=== PATIENT | female | born 1960 | race Caucasian/White ===

== ENCOUNTER 2018-04-22 11:43 | Emergency (ER) | payer OTHER, MEDICAID, SELFPAY ==
[2018-04-22 11:47] VITALS: BP 195/93; PULSE 88; RESP 16; TEMP 36.6; O2SAT 98; BMI 47.5
--- NOTE | 2018-04-22 12:01 | ED.NEUROSD ---
HPI - Neuro Symptoms/Deficit General Chief Complaint: Neuro Symptoms/Deficit Stated Complaint: possible stroke, COPD Time Seen by Provider: 04/22/18 12:01 Source: patient Mode of arrival: ambulatory Limitations: no limitations History of Present Illness HPI Narrative: Patient is a 57-year-old female here for evaluation of a potential stroke. Patient is here with her daughter. She states approximately 2 hr prior to arrival here in the emergency department she was talking on the phone with her son when her son stated that she was slurring her words. Patient states that she noticed that she was slurring her words. She also states that there words that she wanted to stay but could not say them. She denies any other symptoms at the time. She states that she went and sat down. She started to eat some aches for breakfast and states the symptoms were still going on. She thinks they lasted sometime between 30 and 60 min. Her symptoms have since then completely resolved. She also states that during the time she had some vague tingling to her right hand. She states that lasted only minutes. That has also resolved. She thinks that she has had a similar symptom in the past. She does not know when this happened. She states that at that time she drank some coffee and everything improved. She did take a baby aspirin this morning not related to this event. Related Data Home Medications Medication Instructions Recorded Confirmed acetaminophen 325 mg PO #0 04/08/16 fluticasone [Flovent Diskus] 100 mcg INH BID #0 07/04/16 furosemide 20 mg PO QDAY #0 07/04/16 simvastatin 10 mg PO QDAY #0 07/04/16 Previous Rx's Medication Instructions Recorded albuterol sulfate [Proventil HFA] 1 puff INH Q4HP PRN #1 inh 04/13/16 amlodipine [Norvasc] 10 mg PO QDAY #30 04/13/16 carvedilol [Coreg] 25 mg PO BID #60 04/13/16 losartan 100 mg PO QDAY #30 04/13/16 doxycycline hyclate 100 mg PO BID 7 Days #0 cap 07/08/16 prednisone 60 mg PO QDAY 2 Days #0 07/08/16 salmeterol [Serevent Diskus] 2 puff INH BIDRT 30 Days #0 07/08/16 dexamethasone 2 mg PO Q8H #30 tab 04/22/18 levetiracetam [Keppra] 500 mg PO BID #60 tab 04/22/18 Allergies Allergy/AdvReac Type Severity Reaction Status Date / Time naproxen Allergy Mild MADE MY Verified 04/22/18 12:05 FACE NUMB meperidine Allergy Unknown Verified 04/22/18 12:05 Penicillins Allergy Unknown Verified 04/22/18 12:05 Sulfa (Sulfonamide Allergy Unknown Verified 04/22/18 12:05 Antibiotics) Review of Systems Review of Systems All systems reviewed & are unremarkable except as noted in HPI and below Constitutional Denies fatigue and Denies fever(s) Eyes Denies blurry vision, Denies change in vision and Denies diplopia ENT Ears, Nose, Mouth, and Throat: Denies vertigo, Denies dizziness, Denies sinus pressure, Denies sore throat and Denies throat swelling Cardiovascular Denies chest pain, Denies palpitations and Denies dyspnea Respiratory Denies cough and Denies dyspnea Gastrointestinal Gastrointestinal: Denies abdominal pain, Denies nausea and Denies vomiting Genitourinary Denies dysuria and Denies flank pain Musculoskeletal Denies myalgias and Denies arthralgias Integumentary/Breasts Denies lesions and Denies rash Neurologic Denies confusion, Denies vertigo and Denies dizziness Comments: Slurring of words, word-finding, tingling to right hand Psychiatric Denies confusion and Denies depression Endocrine Denies fatigue and Denies palpitations Hematologic/Lymphatic Comments: Takes aspirin Allergic/Immunologic Denies urticaria and Denies throat swelling PFSH Medical History COPD (chronic obstructive pulmonary disease) (Acute) Hypertension (Acute) Social History Smoking Status: Never smoker Exam Initial Vital Signs Initial Vital Signs: Vital Signs Temperature 98 F 04/22/18 11:47 Pulse Rate 88 04/22/18 11:47 Respiratory Rate 16 04/22/18 11:47 Blood Pressure 195/93 H 04/22/18 11:47 Pulse Oximetry 98 04/22/18 11:47 Const General: cooperative, comfortable, well developed, well groomed and No acute distress Nutritional Appearance: overweight Orientation: alert, awake and oriented x3 HENMT Head: normal to inspection and normocephalic Eyes General: appearance normal, both eyes and all related structures Pupils: PERRL EOM: EOM intact bilaterally Chest Chest: normal inspection of the chest Resp Effort & Inspection: normal respiratory effort Auscultation: clear to auscultation bilaterally Cardio Rate: regular rate Rhythm: regular rhythm Pulses: radial pulses present GI Inspection: non-distended Palpation: soft, No firm and No tender Back/Spine/Pelvis Back: No CVA tenderness Skin Lesions: no lesions Rashes: no rashes Neuro General: alert, awake and oriented x3 Cranial Nerves: CN's II-XI intact bilaterally Cognition: normal cognition Speech: speech normal Gait: normal gait Motor: muscle tone normal throughout Sensory Exam: no sensory deficits noted Coordination: [id number] test normal Extrem General: normal to inspection, full ROM, capillary refill normal and No edema Psych Appearance: grossly normal and well kempt Scores ABCD2 Age >= 60 years: yes Initial BP. Either SBP >= 140 or DBP >= 90.: yes Clinical features of the TIA: speech disturbance without weakness Duration of symptoms: 10-59 minutes History of diabetes: no ABCD2 Score: 4 GCS Greene coma scale eye opening: Spontaneous Deena coma scale verbal response: Orientated Deena coma scale motor response: Obey commands Greene coma scale total score: 15 NIH Stroke Scale Level of Conciousness: Alert, keenly responsive Ask month/age: Answers both questions correctly. Open/close eyes, close hand: Performs both tasks correctly Best gaze horizontal: Normal Visual ramirez: No visual loss Facial palsy: Normal symetrical movement Left arm drift: No drift for full 10 sec Right arm drift: No drift for full 10 sec Left leg drift: No drift for full 10 sec Right leg drift: No drift for full 10 sec Limb ataxia: Absent Sensory on face/arms/legs: Normal, no sensory loss Best language: No aphasia, normal Dysarthria: Normal Extinction or inattention: No abnormality Total NIH Stroke scale score: 0 Course Orders Ordered: ED Orders 04/22/18 12:18 CT head/brain wo con Stat EKG-12 Lead Stat 04/22/18 12:45 Basic Metabolic Panel Stat Complete Blood Count AUTO DIFF Stat Partial Thromboplastin Time Stat Prothrombin Time INR Stat 04/22/18 15:43 CT chest abd pel w con Stat Discontinued Medications Aspirin (Aspirin Ec) 162 mg PO NOW ONE Stop: 04/22/18 12:18 Last Admin: 04/22/18 13:20 Dose: Aspirin (Aspirin Chew) 162 mg PO NOW ONE Stop: 04/22/18 12:55 Last Admin: 04/22/18 12:55 Dose: 162 mg Dexamethasone (Decadron) 2 mg PO NOW ONE Stop: 04/22/18 15:42 Last Admin: 04/22/18 16:05 Dose: 2 mg Sodium Chloride (Normal Saline 0.9%) 1,000 mls @ 1,000 mls/hr IV BOLUS ONE Stop: 04/22/18 16:41 Last Admin: 04/22/18 16:05 Dose: 1,000 mls/hr Levetiracetam (Keppra) 500 mg PO NOW ONE Stop: 04/22/18 15:42 Last Admin: 04/22/18 16:05 Dose: 500 mg Vital Signs - 8 hr 04/22/18 11:47 04/22/18 13:00 04/22/18 14:30 Temperature 98 F Pulse Rate 88 80 78 Respiratory Rate 16 16 27 H Blood Pressure 195/93 H Blood Pressure [Left Arm] 167/73 H 166/65 H Pulse Oximetry 98 95 98 04/22/18 15:30 04/22/18 16:43 Temperature Pulse Rate 104 H 79 Respiratory Rate 18 Blood Pressure Blood Pressure [Left Arm] 120/82 187/75 H Pulse Oximetry 97 97 MDM - Neuro Symptoms/Deficit Lab Data Attestation: I reviewed the patient's lab results. Result diagrams: 04/22/18 12:45 04/22/18 12:45 Lab Results 04/22/18 04/22/18 04/22/18 Range/Units 12:45 12:45 12:45 WBC 7.5 (4.5-11.0) X10^3/uL RBC 4.79 (4.0-5.2) X10^6/uL Hgb 13.2 (12.0-16.0) g/dL Hct 39.4 (36-46) % MCV 82.3 (80-100) fL MCH 27.6 (26-34) PG MCHC 33.6 (30-36) % RDW 14.3 (11.6-14.8) % Plt Count 285 (150-400) X10^3/uL Neut % (Auto) 70.7 (50-75) % Lymph % (Auto) 21.4 L (25-40) % [place] % (Auto) 4.4 (3-14) % Eos % (Auto) 2.4 (2-4) % Baso % (Auto) 1.1 (0-2) % Neut # (Auto) 5300 (6836-6496) /uL PT 11.7 (10.1-12.7) SECONDS INR 1.0 (0.9-1.3) APTT 28 (26.4-36.2) SECONDS Sodium 139 (137-145) mmol/L Potassium 4.2 (3.4-5.1) mmol/L Chloride 93 L (98-107) mmol/L Carbon Dioxide 37 H (22-32) mmol/L BUN 13 (7-17) mg/dL Creatinine 0.60 (0.52-1.04) mg/dL Estimated GFR > 60.0 (>60) mL/min BUN/Creatinine Ratio 21.7 (6-22) Glucose 235 H (70-100) mg/dL Calcium 9.6 (8.4-10.2) mg/dL Imaging Data CT scan - head: Radiologist's impression: PROCEDURE: CT HEAD/BRAIN WO CON INDICATIONS: Dysarthria, possible TIA TECHNIQUE: Noncontrast 4.5 mm thick angled axial sections acquired from the foramen magnum to the vertex, with coronal and sagittal reformats. For radiation dose reduction, the following was used: automated exposure control, adjustment of mA and/or kV according to patient size. COMPARISON: [facility], CT, PE STUDY (CTA CHEST), 07/04/2016, 17:54. [facility], CT, PE STUDY (CTA CHEST), 03/25/2016, 2:43. [facility], CT, ABDOMEN/PELVIS WITH CONTRAST, 07/01/2011, 22:35. [facility], CT, ABDOMEN/PELVIS WITH CONTRAST, 08/17/2010, 18:58. FINDINGS: Image quality: Excellent. CSF spaces: Basal cisterns are patent. Ventricles are normal in size and shape. There is a 2.3 cm ML by 3.5 cm AP by 4.0 cm CC hyperattenuating oval circumscribed mass overlying the lateral left frontal lobe with adjacent mass effect on the left frontal lobe with effacement of the adjacent sulci and edema. Brain: No midline shift. East-white matter interface is normal. Mild scattered subcortical periventricular white matter hypoattenuation is nonspecific but can be seen with chronic microvascular ischemic changes. There is a chronic-appearing lacunar infarct in the right basal ganglia. Skull and face: Calvarium and visualized facial bones are intact. Sinuses: Visualized sinuses and mastoids are clear. IMPRESSION: 4.0 cm extra-axial mass overlying the lateral left frontal lobe concerning for a true mass lesion such as a meningioma; an epidural hematoma is also possible but thought less likely given morphology. Consider contrast-enhanced brain MRI for further evaluation. Findings discussed with referring provider Dr. Neftali Monzon by telephone by Dr. Kiser at 12:45 PM on 04/22/18. Dictated by: Samir Kiser M.D. on 04/22/2018 at 12:37 Approved by: Samir Kiser M.D. on 04/22/2018 at 12:47 CT chest abdomen pelvis: Radiologist's impression: PROCEDURE: CT CHEST ABD PEL W CON INDICATIONS: eval for primary cancer TECHNIQUE: After the administration of intravenous contrast, 5 mm thick sections acquired from the lung apices to the symphysis. 2.5 mm thick coronal and sagittal reformats were acquired. Additional 7 mm thick coronal maximum intensity projection (MIP) reformats acquired through the lungs. Optional 10-minute delayed imaging may be performed from the kidneys to the bladder. For radiation dose reduction, the following was used: automated exposure control, adjustment of mA and/or kV according to patient size. COMPARISON: [facility], CT, CT HEAD/BRAIN WO CON, 04/22/2018, 12:13. [facility], CT, PE STUDY (CTA CHEST), 07/04/2016, 17:54. [facility], CT, PE STUDY (CTA CHEST), 03/25/2016, 2:43. [facility], CT, ABDOMEN/PELVIS WITH CONTRAST, 07/01/2011, 22:35. FINDINGS: Image quality: Excellent. CHEST: Lungs: Scattered bilateral linear airspace opacities consistent with atelectasis. No pneumothorax or hemothorax. Central and peripheral airways appear patent and normal in caliber. Mediastinum: Heart size is normal. Trace pericardial effusion. Thoracic aorta and pulmonary arteries demonstrate normal size and enhancement. No mediastinal or hilar adenopathy. There is mild calcified plaque of the aorta and branch vessels. Chest wall: No rib fractures. No subcutaneous emphysema. No axillary or supraclavicular adenopathy. Thyroid gland demonstrates small calcifications in the inferior left thyroid lobe. ABDOMEN: Solid organs: There is diffuse hypoattenuation consistent with hepatic steatosis.. Gallbladder is surgically absent. Biliary system is non-dilated. Pancreas enhances normally, without transection. Spleen is normal in size and enhancement, without lacerations. No adrenal nodules. Both kidneys enhance normally, without hydronephrosis or lacerations. Peritoneum and bowel: No free fluid or air. There is diffuse colonic diverticulosis without evidence of acute diverticulitis. Appendix is not clearly identified on this exam, but no right lower quadrant inflammatory findings are identified to suggest acute appendicitis. Nodes and vessels: No retroperitoneal or mesenteric adenopathy. Aorta and inferior vena cava are normal in size and enhancement. Mild calcified plaque of the abdominal aorta and branch vessels noted. Miscellaneous: There is a small fat-containing umbilical hernia. PELVIS: Genitourinary: Bladder wall thickness is normal. Miscellaneous: No inguinal hernias or adenopathy. Multiple uterine masses are identified, one measuring 4.0 cm and demonstrating peripheral calcifications, while the largest measures 5.2 cm with no calcification. Bones: Multilevel degenerative changes of the spine noted. IMPRESSION: 1. Multiple uterine masses measuring up to 5.2 cm in greatest diameter, most consistent with uterine fibroids. 2. Colonic diverticulosis without evidence of acute diverticulitis. Dictated by: Samir Kiser M.D. on 04/22/2018 at 16:56 ECG Data Attestation: I personally reviewed and interpreted this ECG as follows: Prior ECG tracings: not available for review Interpretation: Sinus rhythm Ventricular rate 80 for Normal axis Normal QRS Normal QTC No ST T wave changes MDM Narrative Medical decision making narrative: Patient has been completely symptom free since arrival here in the emergency department. The non con head CT shows no signs of stroke. Does have what appears to be a left-sided hemangioma. Patient was unable to tolerate the MRI here in the emergency department. I discussed the case with Dr. Estrada neurosurgery at [facility]. He was unable to view the CT resolved secondary to a systems issue and unable to push the images to him. I did read him the report. We did discuss the reports of the edema noted. He recommended starting the patient on 500 mg of Keppra 2 times a day and 2 mg of dexamethasone 3 times a day. Patient was given her 1st dose here in the emergency department. He also recommended that the patient call his office tomorrow. He stated that he most likely would be able to see her tomorrow in the office. He also recommended the CT scan of the chest abdomen pelvis to look for any potential malignancy. This came back unremarkable. The patient was given a CT scan of her head and also her chest abdomen pelvis. There is some concern that the hemangioma was pressing on the left temporal lobe which could very well be causing her symptoms that brought her to the emergency department. Patient was given follow-up information for Neurosurgery. She was instructed to contact her insurance company also her primary care doctor. She was given return precautions. She expressed understanding and agreement with plan. Discharge Plan Departure Patient Disposition: Home Clinical Impression: Meningioma Instructions: Meningioma Activity Restrictions/Additional Instructions: I recommend that tomorrow morning you contact your insurance company and also your primary care doctor. Please call the neurosurgery office at [facility] at [phone]. You were given her 1st dose of medications here in the emergency department. Start taking the medications as directed tomorrow 04/23/18. Return to the emergency department for any new or worsening symptoms. I also recommend he start taking a full dose aspirin daily. Prescriptions: New levetiracetam [Keppra] 500 mg tablet 500 mg PO BID Qty: 60 RF: 0 dexamethasone 2 mg tablet 2 mg PO Q8H Qty: 30 RF: 0 No Action acetaminophen 325 MG tablet 325 mg PO Qty: 0 RF: 0 amlodipine [Norvasc] 5 MG tablet 10 mg PO QDAY Qty: 30 RF: 0 carvedilol [Coreg] 25 MG tablet 25 mg PO BID Qty: 60 RF: 0 losartan 50 MG tablet 100 mg PO QDAY Qty: 30 RF: 0 albuterol sulfate [Proventil HFA] 90 MCG/PUFF HFA aerosol inhaler 1 puff INH Q4HP PRNQty: 1 RF: 0 simvastatin 10 MG tablet 10 mg PO QDAY Qty: 0 RF: 0 furosemide 20 MG tablet 20 mg PO QDAY Qty: 0 RF: 0 fluticasone [Flovent Diskus] 100 MCG blister with device 100 mcg INH BID Qty: 0 RF: 0 doxycycline hyclate 100 MG capsule 100 mg PO BID 7 Days Qty: 0 RF: 0 prednisone 20 MG tablet 60 mg PO QDAY 2 Days Qty: 0 RF: 0 salmeterol [Serevent Diskus] 50 MCG blister with device 2 puff INH BIDRT 30 Days Qty: 0 RF: 0
--- NOTE | 2018-04-22 12:18 | DI.CT.S_ITS ---
PROCEDURE: CT HEAD/BRAIN WO CON INDICATIONS: Dysarthria, possible TIA TECHNIQUE: Noncontrast 4.5 mm thick angled axial sections acquired from the foramen magnum to the vertex, with coronal and sagittal reformats. For radiation dose reduction, the following was used: automated exposure control, adjustment of mA and/or kV according to patient size. COMPARISON: [facility], CT, PE STUDY (CTA CHEST), 07/04/2016, 17:54. [facility], CT, PE STUDY (CTA CHEST), 03/25/2016, 2:43. [facility], CT, ABDOMEN/PELVIS WITH CONTRAST, 07/01/2011, 22:35. [facility], CT, ABDOMEN/PELVIS WITH CONTRAST, 08/17/2010, 18:58. FINDINGS: Image quality: Excellent. CSF spaces: Basal cisterns are patent. Ventricles are normal in size and shape. There is a 2.3 cm ML by 3.5 cm AP by 4.0 cm CC hyperattenuating oval circumscribed mass overlying the lateral left frontal lobe with adjacent mass effect on the left frontal lobe with effacement of the adjacent sulci and edema. Brain: No midline shift. East-white matter interface is normal. Mild scattered subcortical periventricular white matter hypoattenuation is nonspecific but can be seen with chronic microvascular ischemic changes. There is a chronic-appearing lacunar infarct in the right basal ganglia. Skull and face: Calvarium and visualized facial bones are intact. Sinuses: Visualized sinuses and mastoids are clear. IMPRESSION: 4.0 cm extra-axial mass overlying the lateral left frontal lobe concerning for a true mass lesion such as a meningioma; an epidural hematoma is also possible but thought less likely given morphology. Consider contrast-enhanced brain MRI for further evaluation. Findings discussed with referring provider Dr. Neftali Monzon by telephone by Dr. Kiser at 12:45 PM on 04/22/18. Dictated by: Samir Kiser M.D. on 04/22/2018 at 12:37 Approved by: Samir Kiser M.D. on 04/22/2018 at 12:47
[2018-04-22 12:54] LABS: Add Manual Diff / Slide Review NO; Basophils Percent Auto 1.1 % (0-2); Eosinophils Percent Auto 2.4 % (2-4); Hematocrit 39.4 % (36-46); Hemoglobin 13.2 g/dL (12.0-16.0); Lymphocytes Percent Auto 21.4 % (25-40); Mean Corpuscular HGB Conc 33.6 % (30-36); Mean Corpuscular Hemoglobin 27.6 PG (26-34); Mean Corpuscular Volume 82.3 fL (80-100); Monocytes Percent Auto 4.4 % (3-14); Neutrophils Absolute Auto 5300 /uL (1500-7000); Neutrophils Percent Auto 70.7 % (50-75); Platelet Count 285 X10^3/uL (150-400); Red Blood Cell Count 4.79 X10^6/uL (4.0-5.2); Red Cell Distribution Width 14.3 % (11.6-14.8); White Blood Cell Count 7.5 X10^3/uL (4.5-11.0)
[2018-04-22] MEDS: ASPIRIN 81 MG TAB 162 MG PO (12:55)
[2018-04-22 12:59] LABS: Prothrombin Time 11.7 SECONDS (10.1-12.7)
[2018-04-22 13:00] VITALS: BP 167/73; PULSE 80; RESP 16; O2SAT 95
[2018-04-22 13:02] LABS: PTT Partial Thromboplastin Tim 28 SECONDS (26.4-36.2)
[2018-04-22 13:03] LABS: BUN Creatinine Ratio 21.7 (6-22); Blood Urea Nitrogen 13 mg/dL (7-17); Calcium 9.6 mg/dL (8.4-10.2); Carbon Dioxide 37 mmol/L (22-32); Chloride 93 mmol/L (98-107); Estimated Glomerular Filt Rate > 60.0 mL/min (>60); Glucose 235 mg/dL (70-100); HEMOLYSIS 27 (0-50); Potassium 4.2 mmol/L (3.4-5.1); Sodium 139 mmol/L (137-145)
--- NOTE | 2018-04-22 13:28 | PC.NURSE ---
Pt reports on phone with son about 1030 when she started slurring words. She reported it increased to being unable to say any words coherently though she knew what she wanted to say. She reported that fingers in left hand started to go numb at home but has feeling in hand at this time. Reports speech cleared about 1200.
[2018-04-22 14:30] VITALS: BP 166/65; PULSE 78; RESP 27; O2SAT 98
--- NOTE | 2018-04-22 14:40 | PC.NURSE ---
PT to MRI. Was unable to tolerate procedure. procedure was not started.
[2018-04-22 15:30] VITALS: BP 120/82; PULSE 104; O2SAT 97
--- NOTE | 2018-04-22 15:43 | DI.CT.S_ITS ---
PROCEDURE: CT CHEST ABD PEL W CON INDICATIONS: eval for primary cancer TECHNIQUE: After the administration of intravenous contrast, 5 mm thick sections acquired from the lung apices to the symphysis. 2.5 mm thick coronal and sagittal reformats were acquired. Additional 7 mm thick coronal maximum intensity projection (MIP) reformats acquired through the lungs. Optional 10-minute delayed imaging may be performed from the kidneys to the bladder. For radiation dose reduction, the following was used: automated exposure control, adjustment of mA and/or kV according to patient size. COMPARISON: [facility], CT, CT HEAD/BRAIN WO CON, 04/22/2018, 12:13. [facility], CT, PE STUDY (CTA CHEST), 07/04/2016, 17:54. [facility], CT, PE STUDY (CTA CHEST), 03/25/2016, 2:43. [facility], CT, ABDOMEN/PELVIS WITH CONTRAST, 07/01/2011, 22:35. FINDINGS: Image quality: Excellent. CHEST: Lungs: Scattered bilateral linear airspace opacities consistent with atelectasis. No pneumothorax or hemothorax. Central and peripheral airways appear patent and normal in caliber. Mediastinum: Heart size is normal. Trace pericardial effusion. Thoracic aorta and pulmonary arteries demonstrate normal size and enhancement. No mediastinal or hilar adenopathy. There is mild calcified plaque of the aorta and branch vessels. Chest wall: No rib fractures. No subcutaneous emphysema. No axillary or supraclavicular adenopathy. Thyroid gland demonstrates small calcifications in the inferior left thyroid lobe. ABDOMEN: Solid organs: There is diffuse hypoattenuation consistent with hepatic steatosis.. Gallbladder is surgically absent. Biliary system is non-dilated. Pancreas enhances normally, without transection. Spleen is normal in size and enhancement, without lacerations. No adrenal nodules. Both kidneys enhance normally, without hydronephrosis or lacerations. Peritoneum and bowel: No free fluid or air. There is diffuse colonic diverticulosis without evidence of acute diverticulitis. Appendix is not clearly identified on this exam, but no right lower quadrant inflammatory findings are identified to suggest acute appendicitis. Nodes and vessels: No retroperitoneal or mesenteric adenopathy. Aorta and inferior vena cava are normal in size and enhancement. Mild calcified plaque of the abdominal aorta and branch vessels noted. Miscellaneous: There is a small fat-containing umbilical hernia. PELVIS: Genitourinary: Bladder wall thickness is normal. Miscellaneous: No inguinal hernias or adenopathy. Multiple uterine masses are identified, one measuring 4.0 cm and demonstrating peripheral calcifications, while the largest measures 5.2 cm with no calcification. Bones: Multilevel degenerative changes of the spine noted. IMPRESSION: 1. Multiple uterine masses measuring up to 5.2 cm in greatest diameter, most consistent with uterine fibroids. 2. Colonic diverticulosis without evidence of acute diverticulitis. Dictated by: Samir Kiser M.D. on 04/22/2018 at 16:56 Approved by: Samir Kiser M.D. on 04/22/2018 at 17:11
[2018-04-22] MEDS: levETIRAcetam 250 MG TABLET 500 MG PO (16:05)
[2018-04-22] MEDS: SODIUM CHLORIDE 0.9% 1,000 ML 1000 ML IV (16:05)
[2018-04-22] MEDS: DEXAMETHASONE 1 MG TABLET 2 MG PO (16:05)
[2018-04-22 16:43] VITALS: BP 187/75; PULSE 79; RESP 18; O2SAT 97
[2018-04-22 17:55] VITALS: BP 187/70; PULSE 78; RESP 19; O2SAT 99
--- NOTE | 2018-05-23 20:41 | PC.NURSE ---
Late Entry: Pt received 1000ml of Normal saline on 04/22/18. Completed at 1650.
== END 2018-04-22 17:59 | disposition home or self-care (01) ==
PROVIDERS: Emergency Provider Emergency Medicine; Family Provider Family Medicine; PCP Family Medicine
DX: D32.9 Benign neoplasm of meninges, unspecified (principal)
CPT/HCPCS: 36591; 70450; 71260; 74177; 80048; 85025; 85610; 85730; 93005; 96360; 99283; 99285; 99291; Q9967

== ENCOUNTER 2018-05-14 10:31 | Emergency (ER) | payer OTHER, MEDICAID, SELFPAY ==
[2018-05-14] VITALS (13 sets, daily range): BP systolic 141–1202; BP diastolic 31–103; PULSE 72–95; RESP 15–24; TEMP 36.9; O2SAT 98–99
--- NOTE | 2018-05-14 10:56 | DI.CT.S_ITS ---
PROCEDURE: CT HEAD/BRAIN WO CON INDICATIONS: weakness TECHNIQUE: Noncontrast 4.5 mm thick angled axial sections acquired from the foramen magnum to the vertex, with coronal and sagittal reformats. For radiation dose reduction, the following was used: automated exposure control, adjustment of mA and/or kV according to patient size. COMPARISON: [facility], CT, CT HEAD/BRAIN WO CON, 04/22/2018, 12:13. FINDINGS: Image quality: Excellent. CSF spaces: Basal cisterns are patent. No extra-axial fluid collections. There is slight effacement of the left lateral ventricle redemonstrated secondary to mass effect from the left extra-axial mass. Brain: There is a new small parenchymal hematoma within the right basal ganglia measuring up to 1.0 x 0.9 x 1.0 cm. No associated mass effect. A small hypodensity is also redemonstrated within the right internal capsule likely representing sequela of a prior lacunar infarct. Along the left frontal lobe, there is an extra-axial dural based slightly hyperattenuating mass measuring up to 3.6 x 2.4 x 4.0 cm which appears stable in size compared to the recent study of 04/22/18. There is associated mass effect on the left frontal and temporal lobes with mild associated vasogenic edema. There is also mild rightward midline shift measuring approximately 3 mm. Skull and face: Calvarium and visualized facial bones are intact, without suspicious lesions. Sinuses: Visualized sinuses and mastoids are clear. IMPRESSION: 1. New intraparenchymal hematoma within the right basal ganglia. Findings may reflect a hypertensive hemorrhage. No underlying mass demonstrated on the recent CT. 2. Extra-axial dural based mass redemonstrated along the left frontal lobe most likely representing a meningioma. There is associated mass effect with mild rightward midline shift of approximately 3 mm. 3. Small hypodensity in the right internal capsule compatible with sequelae of a prior lacunar infarct redemonstrated. Findings discussed with Dr. Worthington on 05/14/18 at 11:03 AM. Dictated by: Fawad Kebede M.D. on 05/14/2018 at 10:59 Approved by: Fawad Kebede M.D. on 05/14/2018 at 11:08
[2018-05-14 10:59] LABS: Add Manual Diff / Slide Review NO; Basophils Absolute Auto 0 /uL (0-100); Basophils Percent Auto 0.4 % (0-2); Eosinophils Absolute Auto 0 /uL (0-450); Hematocrit 45.6 % (36-46); Hemoglobin 14.7 g/dL (12.0-16.0); Lymphocytes Absolute Auto 600 /uL (1100-4500); Lymphocytes Percent Auto 5.5 % (25-40); Mean Corpuscular HGB Conc 32.3 % (30-36); Mean Corpuscular Hemoglobin 27.5 PG (26-34); Mean Corpuscular Volume 85.1 fL (80-100); Monocytes Absolute Auto 500 /uL (0-900); Monocytes Percent Auto 4.1 % (3-14); Neutrophils Absolute Auto 9900 /uL (1500-7000); Platelet Count 220 X10^3/uL (150-400); Red Blood Cell Count 5.36 X10^6/uL (4.0-5.2); Red Cell Distribution Width 16.1 % (11.6-14.8)
[2018-05-14 11:06] LABS: INR 0.9 (0.9-1.3); Prothrombin Time 10.3 SECONDS (10.1-12.7)
[2018-05-14 11:09] LABS: BUN Creatinine Ratio 33.3 (6-22); Blood Urea Nitrogen 20 mg/dL (7-17); Carbon Dioxide 32 mmol/L (22-32); Chloride 89 mmol/L (98-107); Estimated Glomerular Filt Rate > 60.0 mL/min (>60); PTT Partial Thromboplastin Tim 22 SECONDS (26.4-36.2); Potassium 4.6 mmol/L (3.4-5.1); Sodium 132 mmol/L (137-145)
[2018-05-14 11:11] LABS: Glucose 536 mg/dL (70-100)
[2018-05-14] MEDS: LABETALOL 20 MG/4 ML SYRINGE IV (11:15)
[2018-05-14 11:36] LABS: Alanine Aminotransferase 46 IU/L (9-52); Albumin 4.3 g/dL (3.5-5.0); Albumin Globulin Ratio 1.3 (1.0-2.8); Alkaline Phosphatase 141 U/L (38-126); Aspartate Aminotransferase 23 IU/L (14-36); Bilirubin Total 0.8 mg/dL (0.2-1.3); Globulin 3.2 g/dL (1.7-4.1); HEMOLYSIS 23 (0-50); Total Protein 7.5 g/dL (6.3-8.2)
[2018-05-14] MEDS: SODIUM CHLORIDE 0.9% 1,000 ML 150 ML IV (11:41)
[2018-05-14] MEDS: NICARDIPINE 25 MG in SODIUM CHLORIDE 0.9% 240 ML 50 ML IV (11:47)
[2018-05-14] MEDS: INSULIN REGULAR 100 UNIT/ML 3 ML VIAL 12 UNIT SUBCUT (11:47)
--- NOTE | 2018-05-27 14:04 | ED_ITS ---
HPI - Neuro Symptoms/Deficit General Chief Complaint: Neuro Symptoms/Deficit Stated Complaint: 4am stroke? Time Seen by Provider: 05/14/18 10:39 Source: patient and family Mode of arrival: ambulatory History of Present Illness HPI Narrative: Patient is brought to the emergency department by her family, after finding that she was having difficulty speaking clearly, and was noticing deviation of her tongue to the right. She states that she also has had a headache. Patient denies any neurologic deficits involving her extremities. She has been able to ambulate at her baseline. She states that she has not had trouble speaking the words she wants to say, but is having trouble seeing them clearly. Patient's family states that she has been making sense. The patient has a history of an intracranial mass, for which she has been followed. She is awaiting MRI for this. It is felt to be benign. Patient states that this has affected her neurologically somewhat, but not in the way that she is noticing today. Patient has a history of TI a previously. She states the symptoms have been stable since 4:00 a.m. this morning when she awoke and 1st noticed them. No chest pain, shortness of breath, nausea, vomiting, fevers, cough, or other signs of illness. No other complaints at this time. Related Data Home Medications Medication Instructions Recorded Confirmed acetaminophen 650 mg PO Q4H PRN #0 04/08/16 05/26/18 fluticasone [Flovent Diskus] 100 mcg INH BID #0 07/04/16 05/26/18 dexamethasone 2 mg PO BID 05/14/18 05/26/18 losartan 100 mg PO DAILY 05/14/18 05/26/18 amlodipine [Norvasc] 5 mg PO DAILY 05/23/18 05/26/18 glucose 16 g PO .ONCE PRN 05/23/18 05/26/18 insulin NPH isoph U-100 human 20 units SUBCUT QPM 05/23/18 05/26/18 insulin NPH isoph U-100 human 28 unit SUBCUT QAM 05/23/18 05/26/18 insulin lispro [Humalog KwikPen 1 dose SUBCUT BEDTIME 05/23/18 05/26/18 Insulin] insulin lispro [Humalog KwikPen 18 units SUBCUT TIDWM 05/23/18 05/26/18 Insulin] levetiracetam 1,000 mg PO BID 05/23/18 05/26/18 nystatin [Nyamyc] 1 applic TOPICAL TID PRN 05/23/18 05/26/18 albuterol sulfate [Proventil HFA] 1 puff INH Q4HP PRN 05/26/18 05/26/18 Previous Rx's Medication Instructions Recorded carvedilol [Coreg] 25 mg PO BID #60 04/13/16 salmeterol [Serevent Diskus] 2 puff INH BIDRT 30 Days #0 07/08/16 hydrocodone-acetaminophen [[place]] 1 tab PO Q4-6H PRN #10 tab 05/23/18 nitrofurantoin monohyd/m-cryst 100 mg PO BID #14 cap 05/23/18 [Macrobid] Allergies Allergy/AdvReac Type Severity Reaction Status Date / Time naproxen Allergy Mild MADE MY Verified 05/26/18 10:43 FACE NUMB meperidine Allergy Unknown Verified 05/26/18 10:43 Penicillins Allergy Unknown Verified 05/26/18 10:43 Sulfa (Sulfonamide Allergy Unknown Verified 05/26/18 10:43 Antibiotics) diphenhydramine AdvReac Shakiness Verified 05/26/18 10:43 [From Benadryl] Review of Systems Constitutional Denies chills, Denies fever(s), Denies lethargy and Denies weakness Eyes Denies change in vision, Denies eye discharge, Denies irritation and Denies loss of vision ENT Ears, Nose, Mouth, and Throat: Denies change in voice, Denies neck pain and Denies sore throat Cardiovascular Denies chest pain, Denies irregular heart rhythm, Denies lightheadedness, Denies palpitations, Denies dyspnea, Denies dyspnea on exertion and Denies orthopnea Respiratory Denies cough, Denies dyspnea, Denies dyspnea on exertion and Denies wheezing Gastrointestinal Gastrointestinal: Denies abdominal pain, Denies change in bowel habits, Denies diarrhea, Denies nausea and Denies vomiting Genitourinary Denies hematuria, Denies flank pain, Denies urinary incontinence and Denies urinary urgency Musculoskeletal Denies neck pain Integumentary/Breasts Denies pruritus, Denies erythema, Denies rash and Denies wounds Neurologic Denies confusion, Denies loss of vision and Denies weakness Comments: Speech difficulty Psychiatric Denies anxiety, Denies confusion, Denies depression, Denies homicidal ideation and Denies suicidal ideation Endocrine Denies palpitations Hematologic/Lymphatic Denies easy bruising Allergic/Immunologic Denies wheezing [facility] Medical History Hypoxia (Acute) Meningioma (Acute) Diabetes (Acute) Morbidly obese (Acute) COPD (chronic obstructive pulmonary disease) (Acute) Hypertension (Acute) Surgical History Status post appendectomy (Acute) Status post cholecystectomy (Acute) Family History Daughter No problems noted. Son No problems noted. Social History household members: significant other Smoking Status: Never smoker Family History Daughter No problems noted. Son No problems noted. Social History household members: significant other Smoking Status: Never smoker Exam Initial Vital Signs Initial Vital Signs: Vital Signs Pulse Rate 85 05/14/18 10:50 Respiratory Rate 15 05/14/18 10:50 Blood Pressure 201/100 H 05/14/18 10:50 Pulse Oximetry 98 05/14/18 10:50 Const General: cooperative and well developed Nutritional Appearance: well nourished Orientation: alert, awake, oriented x3 and not confused [facility] Head: normocephalic and atraumatic Ears: external ears normal and TM's normal bilaterally Nose: external nose normal and No nasal discharge Face and sinus: sinuses nontender, face symmetric, no sinus tenderness and No dry mucous membranes Mouth: oral mucosae normal and moist mucous membranes Teeth and gingiva: dentition normal Throat: tonsils normal and uvula midline Eyes General: appearance normal, both eyes and all related structures Eyelids: eyelids normal Conjunctivae: conjunctivae normal Sclera: sclerae normal Pupils: PERRL EOM: EOM intact bilaterally Neck Neck: normal visual inspection, trachea midline, No lymphadenopathy, No midline deformity and No JVD Lymphatic: No lymphedema Chest Chest: normal inspection of the chest Resp Effort & Inspection: normal respiratory effort, able to speak in complete sentences, no respiratory distress and no use of accessory muscles Auscultation: clear to auscultation bilaterally, no rales, no rhonchi and no wheezes Cardio Rate: regular rate Rhythm: regular rhythm Heart Sounds: no click, no gallops, no murmurs and no rubs Pulses: normal peripheral pulses GI Inspection: non-distended Palpation: soft, no hepatosplenomegaly, No guarding, No pulsatile mass and No tender Auscultation: normal bowel sounds Back/Spine/Pelvis Back: No CVA tenderness Cervical Spine: cervical ROM normal and No pain with cervical ROM Thoracic/Lumbar Spine: thoracic and lumbar spine normal to inspection Skin General: no rashes or lesions noted, No jaundice and No petechiae Neuro General: alert, awake and oriented x3 Speech: speech normal Other: The patient has no facial droop, but is noted to have deviation of her tongue to the right when she sticks out her tongue. She answers questions appropriately, but speech is difficult to understand, secondary to lack of clarity in articulation. Patient has 5+ strength in all 4 extremities. No ataxia. Pupils equal round and reactive to light. Other than tongue deviation, no cranial nerve deficit. Extrem General: full ROM, no clubbing, cyanosis or edema, no pedal edema and no calf tenderness Psych Appearance: well kempt Mental Status: mental status grossly normal Attitude: cooperative Thought Content: normal and suicidality Judgment: judgment good Course Course Narrative: The patient was evaluated by myself upon arrival in the emergency department, and was worked up with head CT and labs. Had CT showed a small intracranial hemorrhage on the right, as well as the known mass on the left. Minimal midline shift was noted, and no evidence of impending herniation. No cerebral edema. I did feel this patient would need to be transferred to a higher level of care for her intracranial hemorrhage. I spoke with the stroke team at [facility], and the patient was accepted for transfer. I discussed with the patient the CT findings, and the need for transfer, and patient was agreeable to the plan. She was hypertensive throughout her stay in the emergency department, and we did give her labetalol, followed by a nicardipine drip, to optimize blood pressure. She was also found to be hyperglycemic, and was treated for this, as well. Patient remained stable throughout her stay in the emergency department, and without further deterioration. Orders Ordered: Discontinued Medications Sodium Chloride (Normal Saline 0.9%) 1,000 mls @ 150 mls/hr IV CONT KARTHIKEYAN Last Infusion: 05/14/18 12:43 Dose: 0 mls/hr Admin: 05/14/18 11:41 Dose: 150 mls/hr Nicardipine HCl 25 mg/ Sodium (Chloride) 250 mls @ 50 mls/hr IV TITRATE KARTHIKEYAN; Protocol Last Titration: 05/14/18 11:55 Dose: 5 mg/hr, 50 mls/hr Admin: 05/14/18 11:47 Dose: 5 mg/hr, 50 mls/hr Insulin Human Regular (Humulin R) 12 unit SUBCUT NOW ONE Stop: 05/14/18 11:19 Last Admin: 05/14/18 11:47 Dose: 12 unit Labetalol HCl (Trandate) 20 mg IV NOW ONE Stop: 05/14/18 11:18 Last Admin: 05/14/18 11:15 Dose: 20 mg MDM - Neuro Symptoms/Deficit Medical Records Attestation: I reviewed the patient's medical records. Lab Data Attestation: I reviewed the patient's lab results. Result diagrams: 05/14/18 10:50 05/14/18 10:50 Lab Results 05/14/18 05/14/18 05/14/18 Range/Units 10:50 10:50 10:50 WBC 11.0 (4.5-11.0) X10^3/uL RBC 5.36 H (4.0-5.2) X10^6/uL Hgb 14.7 (12.0-16.0) g/dL Hct 45.6 (36-46) % MCV 85.1 (80-100) fL MCH 27.5 (26-34) PG MCHC 32.3 (30-36) % RDW 16.1 H (11.6-14.8) % Plt Count 220 (150-400) X10^3/uL Neut % (Auto) 90.0 H (50-75) % Lymph % (Auto) 5.5 L (25-40) % [place] % (Auto) 4.1 (3-14) % Eos % (Auto) 0.0 L (2-4) % Baso % (Auto) 0.4 (0-2) % Neut # (Auto) 9900 H (1086-8127) /uL Lymph # (Auto) 600 L (2543-4204) /uL [place] # (Auto) 500 (0-900) /uL Eos # (Auto) 0 (0-450) /uL Baso # (Auto) 0 (0-100) /uL PT 10.3 (10.1-12.7) SECONDS INR 0.9 (0.9-1.3) APTT 22 L D (26.4-36.2) SECONDS Sodium 132 L (137-145) mmol/L Potassium 4.6 (3.4-5.1) mmol/L Chloride 89 L (98-107) mmol/L Carbon Dioxide 32 (22-32) mmol/L BUN 20 H (7-17) mg/dL Creatinine 0.60 (0.52-1.04) mg/dL Estimated GFR > 60.0 (>60) mL/min BUN/Creatinine Ratio 33.3 H (6-22) Glucose 536 H* (70-100) mg/dL Calcium 10.0 (8.4-10.2) mg/dL Total Bilirubin 0.8 (0.2-1.3) mg/dL AST 23 (14-36) IU/L ALT 46 (9-52) IU/L Alkaline Phosphatase 141 H (38-126) U/L Total Protein 7.5 (6.3-8.2) g/dL Albumin 4.3 (3.5-5.0) g/dL Globulin 3.2 (1.7-4.1) g/dL Albumin/Globulin Ratio 1.3 (1.0-2.8) Blood Type Antibody Screen 05/14/18 Range/Units 10:50 WBC (4.5-11.0) X10^3/uL RBC (4.0-5.2) X10^6/uL Hgb (12.0-16.0) g/dL Hct (36-46) % MCV (80-100) fL MCH (26-34) PG MCHC (30-36) % RDW (11.6-14.8) % Plt Count (150-400) X10^3/uL Neut % (Auto) (50-75) % Lymph % (Auto) (25-40) % [place] % (Auto) (3-14) % Eos % (Auto) (2-4) % Baso % (Auto) (0-2) % Neut # (Auto) (3076-1677) /uL Lymph # (Auto) (6804-5172) /uL [place] # (Auto) (0-900) /uL Eos # (Auto) (0-450) /uL Baso # (Auto) (0-100) /uL PT (10.1-12.7) SECONDS INR (0.9-1.3) APTT (26.4-36.2) SECONDS Sodium (137-145) mmol/L Potassium (3.4-5.1) mmol/L Chloride (98-107) mmol/L Carbon Dioxide (22-32) mmol/L BUN (7-17) mg/dL Creatinine (0.52-1.04) mg/dL Estimated GFR (>60) mL/min BUN/Creatinine Ratio (6-22) Glucose (70-100) mg/dL Calcium (8.4-10.2) mg/dL Total Bilirubin (0.2-1.3) mg/dL AST (14-36) IU/L ALT (9-52) IU/L Alkaline Phosphatase (38-126) U/L Total Protein (6.3-8.2) g/dL Albumin (3.5-5.0) g/dL Globulin (1.7-4.1) g/dL Albumin/Globulin Ratio (1.0-2.8) Blood Type O Negative Antibody Screen Negative Imaging Data CT scan - head: Radiologist's impression: PROCEDURE: CT HEAD/BRAIN WO CON INDICATIONS: weakness TECHNIQUE: Noncontrast 4.5 mm thick angled axial sections acquired from the foramen magnum to the vertex, with coronal and sagittal reformats. For radiation dose reduction, the following was used: automated exposure control, adjustment of mA and/or kV according to patient size. COMPARISON: [facility], CT, CT HEAD/BRAIN WO CON, 04/22/2018, 12:13. FINDINGS: Image quality: Excellent. CSF spaces: Basal cisterns are patent. No extra-axial fluid collections. There is slight effacement of the left lateral ventricle redemonstrated secondary to mass effect from the left extra-axial mass. Brain: There is a new small parenchymal hematoma within the right basal ganglia measuring up to 1.0 x 0.9 x 1.0 cm. No associated mass effect. A small hypodensity is also redemonstrated within the right internal capsule likely representing sequela of a prior lacunar infarct. Along the left frontal lobe, there is an extra-axial dural based slightly hyperattenuating mass measuring up to 3.6 x 2.4 x 4.0 cm which appears stable in size compared to the recent study of 04/22/18. There is associated mass effect on the left frontal and temporal lobes with mild associated vasogenic edema. There is also mild rightward midline shift measuring approximately 3 mm. Skull and face: Calvarium and visualized facial bones are intact, without suspicious lesions. Sinuses: Visualized sinuses and mastoids are clear. IMPRESSION: 1. New intraparenchymal hematoma within the right basal ganglia. Findings may reflect a hypertensive hemorrhage. No underlying mass demonstrated on the recent CT. 2. Extra-axial dural based mass redemonstrated along the left frontal lobe most likely representing a meningioma. There is associated mass effect with mild rightward midline shift of approximately 3 mm. 3. Small hypodensity in the right internal capsule compatible with sequelae of a prior lacunar infarct redemonstrated. Findings discussed with Dr. Worthington on 05/14/18 at 11:03 AM. Dictated by: Fawad Kebede M.D. on 05/14/2018 at 10:59 Approved by: Fawad Kebede M.D. on 05/14/2018 at 11:08 Discharge Plan Departure Patient Disposition: [facility] Clinical Impression: Intracranial hematoma, Intracranial mass Discharge Date/Time: 05/14/18 12:25 Interventions: ED Discharge Assessment Last Done: 05/14/18 12:20 Prescriptions: No Action acetaminophen 325 MG tablet 650 mg PO Q4H PRN (Reason: Fever Or Pain) Qty: 0 RF: 0 carvedilol [Coreg] 25 MG tablet 25 mg PO BID Qty: 60 RF: 0 fluticasone [Flovent Diskus] 100 MCG blister with device 100 mcg INH BID Qty: 0 RF: 0 salmeterol [Serevent Diskus] 50 MCG blister with device 2 puff INH BIDRT 30 Days Qty: 0 RF: 0 albuterol sulfate [Proventil HFA] 90 MCG/PUFF HFA aerosol inhaler 1 puff INH Q4HP PRN (Reason: Wheezing) RF: 0 losartan 100 mg tablet 100 mg PO DAILY RF: 0 dexamethasone 2 mg tablet 2 mg PO BID RF: 0 nystatin [Nyamyc] 100,000 unit/gram powder 1 applic Topical TID PRN (Reason: wound care) RF: 0 levetiracetam 1,000 mg tablet 1,000 mg PO BID RF: 0 amlodipine [Norvasc] 5 MG tablet 5 mg PO DAILY RF: 0 glucose 4 gram Tablet,Chewable 16 g PO .ONCE PRN (Reason: low blood sugar) RF: 0 insulin lispro [Humalog KwikPen Insulin] 100 unit/mL Insulin Pen 18 units subcut TIDWM RF: 0 insulin lispro [Humalog KwikPen Insulin] 100 unit/mL Insulin Pen 1 dose subcut BEDTIME RF: 0 insulin NPH isoph U-100 human 100 unit/mL (3 mL) Insulin Pen 28 unit SUBCUT QAM RF: 0 insulin NPH isoph U-100 human 100 unit/mL (3 mL) Insulin Pen 20 units SUBCUT QPM RF: 0 hydrocodone-acetaminophen [[place]] 5-325 mg tablet 1 tab PO Q4-6H PRN (Reason: pain) Qty: 10 RF: 0 nitrofurantoin monohyd/m-cryst [Macrobid] 100 mg capsule 100 mg PO BID Qty: 14 RF: 0
== END 2018-05-14 12:25 | disposition short-term general hospital (02) ==
PROVIDERS: Emergency Provider Emergency Medicine; Family Provider Family Medicine; PCP Family Medicine
DX: I61.9 Nontraumatic intracerebral hemorrhage, unspecified (principal); I67.9 Cerebrovascular disease, unspecified
CPT/HCPCS: 70450; 80053; 85025; 85610; 85730; 86850; 86900; 86901; 93005; 93010; 96361; 96374; 96375; 99285; 99291; 99292

== ENCOUNTER 2018-05-23 13:26 | Emergency (ER) | payer OTHER, MEDICAID, SELFPAY ==
[2018-05-23] VITALS (9 sets, daily range): BP systolic 146–213; BP diastolic 81–101; PULSE 69–84; RESP 16–24; TEMP 36.8; O2SAT 19–98; BMI 51.7
--- NOTE | 2018-05-23 14:52 | ED.CHESTPAIN ---
HPI - Chest Pain General Chief Complaint: Back Pain/Injury Stated Complaint: PAIN IN BACK, NAUSEAUS Time Seen by Provider: 05/23/18 14:23 Source: patient, family and old records reviewed History of Present Illness HPI narrative: Patient is a 57-year-old female with obesity, diabetes and a recent hemorrhage of current hemangioma. His presenting some back discomfort between her shoulder blades all along with some upper epigastric pain. Pain started today. She has not been feeling quite right over the last 1-2 days. His she has been weak and tired. She denies any fever or chills. She has no actual chest pain no for palpitations. She has abdominal discomfort across her upper at vomiting. His regular bowel movements.She is chronically on oxygen she thinks maybe she is slightly more short of breath. Related Data Home Medications Medication Instructions Recorded Confirmed acetaminophen 650 mg PO Q4H PRN #0 04/08/16 05/23/18 fluticasone [Flovent Diskus] 100 mcg INH BID #0 07/04/16 05/23/18 dexamethasone 2 mg PO BID 05/14/18 05/23/18 losartan 100 mg PO DAILY 05/14/18 05/23/18 amlodipine [Norvasc] 5 mg PO DAILY 05/23/18 05/23/18 glucose 16 g PO .ONCE PRN 05/23/18 05/23/18 insulin NPH isoph U-100 human 20 units SUBCUT QPM 05/23/18 05/23/18 insulin NPH isoph U-100 human 28 unit SUBCUT QAM 05/23/18 05/23/18 insulin lispro [Humalog KwikPen 1 dose SUBCUT BEDTIME 05/23/18 05/23/18 Insulin] insulin lispro [Humalog KwikPen 18 units SUBCUT TIDWM 05/23/18 05/23/18 Insulin] levetiracetam 1,000 mg PO BID 05/23/18 05/23/18 nystatin [Nyamyc] 1 applic TOPICAL TID PRN 05/23/18 05/23/18 Previous Rx's Medication Instructions Recorded albuterol sulfate [Proventil HFA] 1 puff INH Q4HP PRN #1 inh 04/13/16 carvedilol [Coreg] 25 mg PO BID #60 04/13/16 salmeterol [Serevent Diskus] 2 puff INH BIDRT 30 Days #0 07/08/16 hydrocodone-acetaminophen [[place]] 1 tab PO Q4-6H PRN #10 tab 05/23/18 nitrofurantoin monohyd/m-cryst 100 mg PO BID #14 cap 05/23/18 [Macrobid] Allergies Allergy/AdvReac Type Severity Reaction Status Date / Time naproxen Allergy Mild MADE MY Verified 05/23/18 13:34 FACE NUMB meperidine Allergy Unknown Verified 05/23/18 13:34 Penicillins Allergy Unknown Verified 05/23/18 13:34 Sulfa (Sulfonamide Allergy Unknown Verified 05/23/18 13:34 Antibiotics) diphenhydramine AdvReac Shakiness Verified 05/23/18 13:34 [From Benadryl] Review of Systems Review of Systems ROS Unobtainable: All systems reviewed & are unremarkable except as noted in HPI and below Constitutional Reports body ache(s), Denies chills, Reports fatigue, Denies fever(s) and Denies frequent falls ENT Ears, Nose, Mouth, and Throat: Denies change in voice, Denies dizziness, Denies neck pain and Denies sore throat Cardiovascular Denies chest pain, Denies irregular heart rhythm, Denies lightheadedness, Denies palpitations, Denies dyspnea, Denies dyspnea on exertion and Denies orthopnea Respiratory Denies cough, Denies dyspnea, Denies dyspnea on exertion and Denies wheezing Gastrointestinal Gastrointestinal: Denies abdominal pain, Denies change in bowel habits, Denies diarrhea, Denies nausea and Denies vomiting Musculoskeletal Reports as per HPI, Reports back pain, Denies neck pain and Denies numbness Integumentary/Breasts Denies pruritus, Denies erythema, Denies rash and Denies wounds Neurologic Denies behavioral changes, Denies confusion, Denies dizziness, Denies frequent falls and Denies numbness Psychiatric Denies behavioral changes and Denies confusion Endocrine Reports fatigue and Denies palpitations Allergic/Immunologic Denies wheezing PFSH Medical History COPD (chronic obstructive pulmonary disease) (Acute) Diabetes (Acute) Hypertension (Acute) Morbidly obese (Acute) Surgical History Status post appendectomy (Acute) Status post cholecystectomy (Acute) Social History Smoking Status: Never smoker Social History Smoking Status: Never smoker Exam Initial Vital Signs Initial Vital Signs: Vital Signs Temperature 98.2 F 05/23/18 13:34 Pulse Rate 76 05/23/18 13:34 Respiratory Rate 16 05/23/18 13:34 Blood Pressure 177/81 H 05/23/18 13:34 Pulse Oximetry 90 L 05/23/18 13:34 GENERAL: [Morbidly obese female appears in pain awake alert oriented HEENT: Head atraumatic,EOMI, pupils reactive, face symmetric CARDIOVASCULAR: Regular rate and rhythm without murmurs, rubs or gallops. RESPIRATORY: Breath sounds equal bilaterally, no wheezes rales or rhonchi. ABDOMEN: Soft, nontender. Normoactive bowel sounds all 4 quadrants. No guarding or rebound. BACK: Tender between scapula no vertebral tenderness pain is not reproducible with palpation : No CVA tenderness EXTREMITIES: Normal range of motion, no clubbing or edema. Neurovascularly intact NEUROLOGICAL: Alert and oriented x4. Normal speech moving all extremities SKIN: She does have some open sores on her legs 1 on the left is draining but no surrounding erythema Course Orders Ordered: Discontinued Medications Hydromorphone HCl (Dilaudid) 0.5 mg IV NOW ONE Stop: 05/23/18 16:44 Last Admin: 05/23/18 16:54 Dose: 0.5 mg Sodium Chloride (Normal Saline 0.9%) 1,000 mls @ 150 mls/hr IV CONT KARTHIKEYAN Last Infusion: 05/23/18 18:06 Dose: 150 mls/hr Admin: 05/23/18 16:54 Dose: 150 mls/hr Nitroglycerin (Nitrostat) 0.4 mg SL [id number] PRN PRN Reason: Chest Pain Last Admin: 05/23/18 15:36 Dose: 0.4 mg Admin: 05/23/18 15:30 Dose: 0.4 mg Admin: 05/23/18 15:26 Dose: 0.4 mg Vital Signs - 8 hr 05/23/18 13:34 05/23/18 14:49 Temperature 98.2 F Pulse Rate 76 74 Respiratory Rate 16 24 Blood Pressure 177/81 H Blood Pressure [Right Arm] 213/91 H Pulse Oximetry 90 L 19 L MDM - Chest Pain Lab Data Attestation: I reviewed the patient's lab results. Result diagrams: 05/23/18 14:44 05/23/18 14:44 Lab Results 05/23/18 05/23/18 05/23/18 Range/Units 14:44 14:44 14:44 WBC 16.3 H (4.5-11.0) X10^3/uL RBC 4.77 (4.0-5.2) X10^6/uL Hgb 13.0 (12.0-16.0) g/dL Hct 41.1 (36-46) % MCV 86.1 (80-100) fL MCH 27.3 (26-34) PG MCHC 31.7 (30-36) % RDW 16.6 H (11.6-14.8) % Plt Count 326 (150-400) X10^3/uL Neut % (Auto) 89.7 H (50-75) % Lymph % (Auto) 5.0 L (25-40) % Cooke % (Auto) 5.0 (3-14) % Eos % (Auto) 0.0 L (2-4) % Baso % (Auto) 0.3 (0-2) % Neut # (Auto) 68441 H (6839-1418) /uL Lymph # (Auto) 800 L (1793-4244) /uL Cooke # (Auto) 800 (0-900) /uL Eos # (Auto) 0 (0-450) /uL Baso # (Auto) 100 (0-100) /uL PT 13.3 H (10.1-12.7) SECONDS INR 1.1 (0.9-1.3) APTT 21 L (26.4-36.2) SECONDS Sodium 138 (137-145) mmol/L Potassium 4.3 (3.4-5.1) mmol/L Chloride 92 L (98-107) mmol/L Carbon Dioxide 38 H (22-32) mmol/L BUN 23 H (7-17) mg/dL Creatinine 0.60 (0.52-1.04) mg/dL Estimated GFR > 60.0 (>60) mL/min BUN/Creatinine Ratio 38.3 H (6-22) Glucose 201 H D (70-100) mg/dL Lactate (0.7-2.1) mmol/L Calcium 9.9 (8.4-10.2) mg/dL Total Bilirubin 0.5 (0.2-1.3) mg/dL AST 19 (14-36) IU/L ALT 46 (9-52) IU/L Alkaline Phosphatase 113 (38-126) U/L Total Creatine Kinase < 20 L (30-135) U/L CK-MB (CK-2) TNP CK-MB (CK-2) Rel Index TNP Troponin I 0.027 (0.01-0.034) ng/mL B-Natriuretic Peptide 223 H (<100) Total Protein 8.1 (6.3-8.2) g/dL Albumin 3.8 (3.5-5.0) g/dL Globulin 4.3 H (1.7-4.1) g/dL Albumin/Globulin Ratio 0.9 L (1.0-2.8) Lipase 25 (23-300) U/L Urine Color Urine Appearance Urine pH (4.5-8.0) Ur Specific [place] (1.000-1.035) Urine Protein (Negative) Urine Glucose (UA) (Negative) g/dL Urine Ketones (NEGATIVE) Urine Occult Blood (Negative) Urine Nitrate (Negative) Urine Bilirubin (NEGATIVE) Urine Urobilinogen (0.2) E.U./dL Ur Leukocyte Esterase (NEGATIVE) Urine RBC (0-5/HPF) Urine WBC (0-5/HPF) Ur Squamous Epith Cells Urine Bacteria (None) Ur Culture Indicated? 05/23/18 05/23/18 05/23/18 Range/Units 14:44 16:51 16:51 WBC (4.5-11.0) X10^3/uL RBC (4.0-5.2) X10^6/uL Hgb (12.0-16.0) g/dL Hct (36-46) % MCV (80-100) fL MCH (26-34) PG MCHC (30-36) % RDW (11.6-14.8) % Plt Count (150-400) X10^3/uL Neut % (Auto) (50-75) % Lymph % (Auto) (25-40) % Cooke % (Auto) (3-14) % Eos % (Auto) (2-4) % Baso % (Auto) (0-2) % Neut # (Auto) (4016-1214) /uL Lymph # (Auto) (8950-3442) /uL Cooke # (Auto) (0-900) /uL Eos # (Auto) (0-450) /uL Baso # (Auto) (0-100) /uL PT (10.1-12.7) SECONDS INR (0.9-1.3) APTT (26.4-36.2) SECONDS Sodium (137-145) mmol/L Potassium (3.4-5.1) mmol/L Chloride (98-107) mmol/L Carbon Dioxide (22-32) mmol/L BUN (7-17) mg/dL Creatinine (0.52-1.04) mg/dL Estimated GFR (>60) mL/min BUN/Creatinine Ratio (6-22) Glucose (70-100) mg/dL Lactate 1.4 (0.7-2.1) mmol/L Calcium (8.4-10.2) mg/dL Total Bilirubin (0.2-1.3) mg/dL AST (14-36) IU/L ALT (9-52) IU/L Alkaline Phosphatase (38-126) U/L Total Creatine Kinase (30-135) U/L CK-MB (CK-2) CK-MB (CK-2) Rel Index Troponin I 0.027 (0.01-0.034) ng/mL B-Natriuretic Peptide (<100) Total Protein (6.3-8.2) g/dL Albumin (3.5-5.0) g/dL Globulin (1.7-4.1) g/dL Albumin/Globulin Ratio (1.0-2.8) Lipase (23-300) U/L Urine Color Yellow Urine Appearance Cloudy Urine pH 5.0 (4.5-8.0) Ur Specific [place] 1.025 (1.000-1.035) Urine Protein 2+ H (Negative) Urine Glucose (UA) Negative (Negative) g/dL Urine Ketones Negative (NEGATIVE) Urine Occult Blood 3+ H (Negative) Urine Nitrate Positive H (Negative) Urine Bilirubin Negative (NEGATIVE) Urine Urobilinogen 0.2 (0.2) E.U./dL Ur Leukocyte Esterase Trace H (NEGATIVE) Urine RBC 5-10/hpf H (0-5/HPF) Urine WBC 30-100/hpf H (0-5/HPF) Ur Squamous Epith Cells 1-5 /hpf Urine Bacteria Many (>30) H (None) Ur Culture Indicated? Specimen cultured Imaging Data Chest x-ray: Radiologist's impression: PROCEDURE: XR CHEST 1V INDICATIONS: chest pain TECHNIQUE: One view of the chest was acquired. COMPARISON: [facility], CT, CT CHEST ABD PEL W CON, 04/22/2018, 15:47. [facility], CR, CHEST 1 VIEW, 07/04/2016, 17:10. FINDINGS: Surgical changes and devices: None. Lungs and pleura: There is pulmonary vascular prominence consistent with mild edema. Linear opacities in the left midlung likely represent atelectasis. The medial lung apices are partially obscured by patient's neck soft tissues. No pleural effusions or definite pneumothorax. Mediastinum: Mediastinal contours appear unchanged. Heart size is enlarged. Bones and chest wall: No suspicious bony lesions. Overlying soft tissues appear unremarkable. IMPRESSION: 1. Pulmonary vascular prominence compatible with mild edema. 2. Cardiomegaly redemonstrated. Dictated by: Fawad Kebede M.D. on 05/23/2018 at 15:14 CT Angio chest abdomen pelvis: Radiologist's impression: PROCEDURE: CT ANGIO CHEST ABDOMEN PELVIS INDICATIONS: scapula pain, abdominal pain, HTN TECHNIQUE: Precontrast 5 mm thick sections acquired from the lung apices to the iliac crests. After the administration of intravenous contrast, 2.5 mm thick sections again acquired from the lung apices to the iliac crests. Maximum intensity projection (MIP) oblique sagittal and coronal reformats were then acquired. For radiation dose reduction, the following was used: automated exposure control. COMPARISON: [facility], CT, CT CHEST ABD PEL W CON, 04/22/2018, 15:47. FINDINGS: Image quality: Diagnostic. AORTA: Noncontrast images demonstrate no evidence of intramural hematoma. The aorta is normal in caliber and contour. No intimal flaps identified to suggest aortic dissection. There is conventional branching at the aortic arch. The visualized great vessels are normal in caliber and patent. Celiac trunk and mesenteric arteries are patent. Renal arteries are also patent. There is an accessory right renal artery supplying the superior pole. CHEST: Lungs and pleura: There is a new subpleural pulmonary nodule in the right upper lobe measuring 7 mm. There is a small subpleural nodule peripherally in the left upper lobe measuring 4 mm also new from the prior study. Linear areas of atelectasis are demonstrated bilaterally with a basilar predominance. No pleural effusions or pneumothorax. Central and peripheral airways are patent and normal in caliber. Mediastinum: Heart size is enlarged. There is a minimal pericardial effusion. No mediastinal or hilar adenopathy by size criteria. Central pulmonary arteries are normal in size. Esophagus is normal in caliber. No hiatal hernias. Bones and chest wall: No axillary adenopathy by size criteria. Thyroid gland demonstrates no discrete nodules. No suspicious bony lesions. No vertebral body compression fractures. ABDOMEN: Solid organs: No focal hepatic lesions identified. The gallbladder is surgically absent. Biliary system is non dilated. Pancreas enhances normally. Spleen is normal in size and enhancement. No adrenal nodules. The kidneys demonstrate heterogeneous enhancement bilaterally with multiple areas of hypoenhancement. There is mild perinephric stranding. Findings are new from the prior study and are suggestive of pyelonephritis. No perinephric fluid collections. The opacified renal cortical systems demonstrate no suspicious filling defects. The ureters are normal in caliber. Peritoneum and bowel: No free fluid or air. Bowel loops are normal in caliber and wall thickness. There is colonic diverticulosis without acute diverticulitis. Nodes and vessels: No retroperitoneal or mesenteric adenopathy by size criteria. Inferior vena cava is normal in morphology. Miscellaneous: No ventral hernias. PELVIS: Genitourinary: Bladder wall thickness is normal. There is early excretion of contrast noted posteriorly within the urinary bladder. There is an enlarged lobulated uterus consistent with multiple uterine fibroids. These include a partially calcified fibroid measuring up to approximately 4.3 cm. Bilateral adnexal structures measuring up to 2.5 cm on the right and 3.1 cm on the left may represent the ovaries or exophytic fibroids. Miscellaneous: No inguinal hernias or adenopathy. No ventral hernias. Bones: No suspicious bony lesions. No vertebral body compression fractures. IMPRESSION: 1. No evidence of aortic dissection. 2. Bilateral heterogeneous enhancement the kidneys with perinephric stranding are new from the prior study and are suspicious for pyelonephritis. Recommend correlation clinically including with urinalysis. The differential includes a nonspecific infiltrative process including possible lymphoma. 3. New small bilateral pulmonary nodules measuring up to 7 mm in the right upper lobe. Recommend followup in 3-6 months to demonstrate stability or resolution. 4. Colonic diverticulosis without acute diverticulitis. 4. Large heterogeneous uterus consistent with multiple uterine fibroids redemonstrated. Bilateral adnexal structures are consistent with the ovaries or exophytic fibroids. Dictated by: Fawad Kebede M.D. on 05/23/2018 at 16:13 ECG Data Attestation: I personally reviewed and interpreted this ECG as follows: Prior ECG tracings: available for review Interpretation: Sinus rhythm rate [address] changes or T-wave inversions similar to previous EKG MDM Narrative Medical decision making narrative: Patient does have leukocytosis but is also on steroids. She has nitrites in her urine and CT shows inflammation around kidneys. She states that she does have some discomfort while urinating. At this time she does not appear septic. Normal lactic acid. Will start her on antibiotics. I discussed with her if symptoms get worse to return to the ED. She and family are agreeable to go home they would like to go home since they were just at [facility]. Discharge Plan Departure Patient Disposition: Home Clinical Impression: UTI (urinary tract infection) Discharge Date/Time: 05/23/18 18:07 Interventions: ED Discharge Assessment Last Done: 05/23/18 18:07 Instructions: DI for Kidney Infection Activity Restrictions/Additional Instructions: *You have been diagnosed with kidney infection *What to do: Increase fluid intake, rest, fever control *Continue to take medications as directed Macrobid 100 mg twice a day for 7 days--> faxed to [facility] in [facility][1] 1 tablet every 6 hr if needed for severe pain *Follow up with your primary care provider in 2-3 days *Return to ER if you should have increasing weakness, increasing confusion, fever not controlled, decreased fluid intake or any new, worsening or concerning symptoms CONTROLLED SUBSTANCE DISCHARGE (Narcotoic/benzodiazepine/Flexeril/Phenergan) 1. You have been prescribed narcotic medications, it does have acetaminophen/Tylenol/paracetamol in it so do not take extra Tylenol or Tylenol containing products 2. Please understand that we cannot provide further refills of narcotics, benzodiazepines or controlled substances through the ED and her pain management will need to be through your provider. 3. While on these medications you cannot drive or operate heavy machinery. 4. You cannot sign legal documents or perform any duties such as this. 5. As long as you're taking opiate pain medications he should also be taking a stool softener such as Colace, Dulcolax, MiraLAX or prune juice, to help avoid constipation. Prescriptions: New hydrocodone-acetaminophen [Dayton] 5-325 mg tablet 1 tab PO Q4-6H PRN (Reason: pain) Qty: 10 RF: 0 nitrofurantoin monohyd/m-cryst [Macrobid] 100 mg capsule 100 mg PO BID Qty: 14 RF: 0 No Action acetaminophen 325 MG tablet 650 mg PO Q4H PRN (Reason: Fever Or Pain) Qty: 0 RF: 0 carvedilol [Coreg] 25 MG tablet 25 mg PO BID Qty: 60 RF: 0 albuterol sulfate [Proventil HFA] 90 MCG/PUFF HFA aerosol inhaler 1 puff INH Q4HP PRNQty: 1 RF: 0 fluticasone [Flovent Diskus] 100 MCG blister with device 100 mcg INH BID Qty: 0 RF: 0 salmeterol [Serevent Diskus] 50 MCG blister with device 2 puff INH BIDRT 30 Days Qty: 0 RF: 0 losartan 100 mg tablet 100 mg PO DAILY RF: 0 dexamethasone 2 mg tablet 2 mg PO BID RF: 0 nystatin [Nyamyc] 100,000 unit/gram powder 1 applic Topical TID PRN (Reason: wound care) RF: 0 levetiracetam 1,000 mg tablet 1,000 mg PO BID RF: 0 amlodipine [Norvasc] 5 MG tablet 5 mg PO DAILY RF: 0 glucose 4 gram Tablet,Chewable 16 g PO .ONCE PRN (Reason: low blood sugar) RF: 0 insulin lispro [Humalog KwikPen Insulin] 100 unit/mL Insulin Pen 18 units subcut TIDWM RF: 0 insulin lispro [Humalog KwikPen Insulin] 100 unit/mL Insulin Pen 1 dose subcut BEDTIME RF: 0 insulin NPH isoph U-100 human 100 unit/mL (3 mL) Insulin Pen 28 unit SUBCUT QAM RF: 0 insulin NPH isoph U-100 human 100 unit/mL (3 mL) Insulin Pen 20 units SUBCUT QPM RF: 0 Referrals: Nato Lin MD [Primary Care Provider] -
--- NOTE | 2018-05-23 14:53 | PC.NURSE ---
family and pt, andreina, dc from [facility] on 18 may, sent home, last night developed mid scapular pain, like pulled muscles, along with anterior abdominal pain, denies injuries or trauma. used heating pad. also with lower ext edema for the last 2 days along with generalized weakness. has been rubbing icy/hot and tylenol arthritis ointment without relief. denies shortness of breath, chest pain,fever,vomiting only with nausea, last normal bm 2 days ago, denies uti sxs. blood glucose at home 170's.
--- NOTE | 2018-05-23 14:55 | DI.RAD.S_ITS ---
PROCEDURE: XR CHEST 1V INDICATIONS: chest pain TECHNIQUE: One view of the chest was acquired. COMPARISON: [facility], CT, CT CHEST ABD PEL W CON, 04/22/2018, 15:47. [facility], CR, CHEST 1 VIEW, 07/04/2016, 17:10. FINDINGS: Surgical changes and devices: None. Lungs and pleura: There is pulmonary vascular prominence consistent with mild edema. Linear opacities in the left midlung likely represent atelectasis. The medial lung apices are partially obscured by patient's neck soft tissues. No pleural effusions or definite pneumothorax. Mediastinum: Mediastinal contours appear unchanged. Heart size is enlarged. Bones and chest wall: No suspicious bony lesions. Overlying soft tissues appear unremarkable. IMPRESSION: 1. Pulmonary vascular prominence compatible with mild edema. 2. Cardiomegaly redemonstrated. Dictated by: Fawad Kebede M.D. on 05/23/2018 at 15:14 Approved by: Fawad Kebede M.D. on 05/23/2018 at 15:15
--- NOTE | 2018-05-23 14:56 | PC.NURSE ---
assited pt with elemination via bedpan, noted dyspneic on exertions.
[2018-05-23 15:02] LABS: Appearance Urine UA CLOUDY; Bilirubin Urine UA NEGATIVE (NEGATIVE); Color Urine UA YELLOW; Glucose Urine UA NEGATIVE (Negative); Ketones Urine UA NEGATIVE (NEGATIVE); Leukocyte Esterase Urine UA TRACE (NEGATIVE); Nitrite Urine UA POSITIVE (Negative); Occult Blood Urine UA 3+ (Negative); Protein Urine UA 2+ (Negative); Specific Gravity Urine UA 1.025 (1.000-1.035); Urobilinogen Urine UA 0.2 E.U./dL (0.2)
[2018-05-23 15:04] LABS: INR 1.1 (0.9-1.3); Prothrombin Time 13.3 SECONDS (10.1-12.7)
[2018-05-23 15:06] LABS: Add Manual Diff / Slide Review NO; Basophils Absolute Auto 100 /uL (0-100); Basophils Percent Auto 0.3 % (0-2); Eosinophils Absolute Auto 0 /uL (0-450); Hematocrit 41.1 % (36-46); Lymphocytes Absolute Auto 800 /uL (1100-4500); Mean Corpuscular HGB Conc 31.7 % (30-36); Mean Corpuscular Hemoglobin 27.3 PG (26-34); Mean Corpuscular Volume 86.1 fL (80-100); Monocytes Absolute Auto 800 /uL (0-900); Neutrophils Absolute Auto 14600 /uL (1500-7000); Neutrophils Percent Auto 89.7 % (50-75); Platelet Count 326 X10^3/uL (150-400); Red Blood Cell Count 4.77 X10^6/uL (4.0-5.2); Red Cell Distribution Width 16.6 % (11.6-14.8); White Blood Cell Count 16.3 X10^3/uL (4.5-11.0)
[2018-05-23 15:07] LABS: PTT Partial Thromboplastin Tim 21 SECONDS (26.4-36.2)
[2018-05-23 15:08] LABS: Alanine Aminotransferase 46 IU/L (9-52); Albumin 3.8 g/dL (3.5-5.0); Albumin Globulin Ratio 0.9 (1.0-2.8); Alkaline Phosphatase 113 U/L (38-126); Aspartate Aminotransferase 19 IU/L (14-36); BUN Creatinine Ratio 38.3 (6-22); Bilirubin Total 0.5 mg/dL (0.2-1.3); Blood Urea Nitrogen 23 mg/dL (7-17); Calcium 9.9 mg/dL (8.4-10.2); Carbon Dioxide 38 mmol/L (22-32); Chloride 92 mmol/L (98-107); Creatine Kinase < 20 U/L (30-135); Estimated Glomerular Filt Rate > 60.0 mL/min (>60); Globulin 4.3 g/dL (1.7-4.1); Glucose 201 mg/dL (70-100); HEMOLYSIS < 15 (0-50); Lipase 25 U/L (23-300); Potassium 4.3 mmol/L (3.4-5.1); Sodium 138 mmol/L (137-145); Total Protein 8.1 g/dL (6.3-8.2)
[2018-05-23 15:11] LABS: Bacteria Urine Many (>30); Culture Indicated Urine Specimen Cultured; RBC Urine 5-10/HPF (0-5/HPF); Squamous Epithelial Cell Urine 1-5 /HPF; WBC Urine 30-100/HPF (0-5/HPF)
[2018-05-23 15:20] LABS: Troponin I 0.027 ng/mL (0.01-0.034)
[2018-05-23] MEDS: NITROGLYCERIN 0.4 MG SL TAB SL ×3 (15:26→15:36)
--- NOTE | 2018-05-23 15:32 | PC.NURSE ---
given nitroglycerin, no change in back pain or stomach. lowered bp.
--- NOTE | 2018-05-23 15:38 | DI.CT.S_ITS ---
PROCEDURE: CT ANGIO CHEST ABDOMEN PELVIS INDICATIONS: scapula pain, abdominal pain, HTN TECHNIQUE: Precontrast 5 mm thick sections acquired from the lung apices to the iliac crests. After the administration of intravenous contrast, 2.5 mm thick sections again acquired from the lung apices to the iliac crests. Maximum intensity projection (MIP) oblique sagittal and coronal reformats were then acquired. For radiation dose reduction, the following was used: automated exposure control. COMPARISON: [facility], CT, CT CHEST ABD PEL W CON, 04/22/2018, 15:47. FINDINGS: Image quality: Diagnostic. AORTA: Noncontrast images demonstrate no evidence of intramural hematoma. The aorta is normal in caliber and contour. No intimal flaps identified to suggest aortic dissection. There is conventional branching at the aortic arch. The visualized great vessels are normal in caliber and patent. Celiac trunk and mesenteric arteries are patent. Renal arteries are also patent. There is an accessory right renal artery supplying the superior pole. CHEST: Lungs and pleura: There is a new subpleural pulmonary nodule in the right upper lobe measuring 7 mm. There is a small subpleural nodule peripherally in the left upper lobe measuring 4 mm also new from the prior study. Linear areas of atelectasis are demonstrated bilaterally with a basilar predominance. No pleural effusions or pneumothorax. Central and peripheral airways are patent and normal in caliber. Mediastinum: Heart size is enlarged. There is a minimal pericardial effusion. No mediastinal or hilar adenopathy by size criteria. Central pulmonary arteries are normal in size. Esophagus is normal in caliber. No hiatal hernias. Bones and chest wall: No axillary adenopathy by size criteria. Thyroid gland demonstrates no discrete nodules. No suspicious bony lesions. No vertebral body compression fractures. ABDOMEN: Solid organs: No focal hepatic lesions identified. The gallbladder is surgically absent. Biliary system is non dilated. Pancreas enhances normally. Spleen is normal in size and enhancement. No adrenal nodules. The kidneys demonstrate heterogeneous enhancement bilaterally with multiple areas of hypoenhancement. There is mild perinephric stranding. Findings are new from the prior study and are suggestive of pyelonephritis. No perinephric fluid collections. The opacified renal cortical systems demonstrate no suspicious filling defects. The ureters are normal in caliber. Peritoneum and bowel: No free fluid or air. Bowel loops are normal in caliber and wall thickness. There is colonic diverticulosis without acute diverticulitis. Nodes and vessels: No retroperitoneal or mesenteric adenopathy by size criteria. Inferior vena cava is normal in morphology. Miscellaneous: No ventral hernias. PELVIS: Genitourinary: Bladder wall thickness is normal. There is early excretion of contrast noted posteriorly within the urinary bladder. There is an enlarged lobulated uterus consistent with multiple uterine fibroids. These include a partially calcified fibroid measuring up to approximately 4.3 cm. Bilateral adnexal structures measuring up to 2.5 cm on the right and 3.1 cm on the left may represent the ovaries or exophytic fibroids. Miscellaneous: No inguinal hernias or adenopathy. No ventral hernias. Bones: No suspicious bony lesions. No vertebral body compression fractures. IMPRESSION: 1. No evidence of aortic dissection. 2. Bilateral heterogeneous enhancement the kidneys with perinephric stranding are new from the prior study and are suspicious for pyelonephritis. Recommend correlation clinically including with urinalysis. The differential includes a nonspecific infiltrative process including possible lymphoma. 3. New small bilateral pulmonary nodules measuring up to 7 mm in the right upper lobe. Recommend followup in 3-6 months to demonstrate stability or resolution. 4. Colonic diverticulosis without acute diverticulitis. 4. Large heterogeneous uterus consistent with multiple uterine fibroids redemonstrated. Bilateral adnexal structures are consistent with the ovaries or exophytic fibroids. Dictated by: Fawad Kebede M.D. on 05/23/2018 at 16:13 Approved by: Fawad Kebede M.D. on 05/23/2018 at 16:25
[2018-05-23 16:17] LABS: B Type Natriuretic Peptide 223 (<100)
[2018-05-23] MEDS: SODIUM CHLORIDE 0.9% 1,000 ML 150 ML IV (16:54)
[2018-05-23] MEDS: HYDROMORPHONE 1 MG INJ 0.5 MG IV (16:54)
[2018-05-23 17:07] LABS: Lactate (Lactic Acid) 1.4 mmol/L (0.7-2.1)
[2018-05-23 17:20] LABS: Troponin I 0.027 ng/mL (0.01-0.034)
== END 2018-05-23 18:07 | disposition home or self-care (01) ==
PROVIDERS: Emergency Provider Emergency Medicine; Family Provider Family Medicine; PCP Family Medicine
DX: N39.0 Urinary tract infection, site not specified (principal)
CPT/HCPCS: 36591; 71045; 71275; 74174; 80053; 81001; 82550; 83605; 83690; 83880; 84484; 85025; 85610; 85730; 87077; 87086; 87186; 93005; 96361; 96374; 99284; 99285; J1170; Q9967

== ENCOUNTER 2018-05-26 10:31 | Inpatient (IN) | payer OTHER, MEDICAID, SELFPAY ==
[2018-05-26] VITALS (10 sets, daily range): BP systolic 142–173; BP diastolic 60–84; PULSE 82–94; RESP 16–33; TEMP 37.2–37.6; O2SAT 93–97; BMI 51.7
--- NOTE | 2018-05-26 10:38 | ED.GENADULT ---
HPI - General Adult General Chief complaint: Neuro Symptoms/Deficit Stated complaint: Back & Head Pain Time Seen by Provider: 05/26/18 10:37 Source: patient and EMS Mode of arrival: EMS Limitations: no limitations History of Present Illness HPI narrative: Patient is a 57-year-old female who has been seen here in the emergency department in the past and has also had a intracranial bleed. Was sent to [facility]. She states that no surgical intervention was done. She reports today for evaluation because after she woke up she was so weak that she could lift her legs and get out of bed. She states she is not feeling well. She does have a history of COPD and is on home oxygen is on her baseline home oxygen. She also states she has a headache. Has not tried anything for her symptoms prior to arrival. Patient arrived by EMS. There is no signs of trauma. Patient is not on anticoagulation. Related Data Home Medications Medication Instructions Recorded Confirmed acetaminophen 650 mg PO Q4H PRN #0 04/08/16 05/26/18 fluticasone [Flovent Diskus] 100 mcg INH BID #0 07/04/16 05/26/18 dexamethasone 2 mg PO BID 05/14/18 05/26/18 losartan 100 mg PO DAILY 05/14/18 05/26/18 amlodipine [Norvasc] 5 mg PO DAILY 05/23/18 05/26/18 glucose 16 g PO .ONCE PRN 05/23/18 05/26/18 insulin NPH isoph U-100 human 20 units SUBCUT QPM 05/23/18 05/26/18 insulin NPH isoph U-100 human 28 unit SUBCUT QAM 05/23/18 05/26/18 insulin lispro [Humalog KwikPen 1 dose SUBCUT BEDTIME 05/23/18 05/26/18 Insulin] insulin lispro [Humalog KwikPen 18 units SUBCUT TIDWM 05/23/18 05/26/18 Insulin] levetiracetam 1,000 mg PO BID 05/23/18 05/26/18 nystatin [Nyamyc] 1 applic TOPICAL TID PRN 05/23/18 05/26/18 albuterol sulfate [Proventil HFA] 1 puff INH Q4HP PRN 05/26/18 05/26/18 Previous Rx's Medication Instructions Recorded carvedilol [Coreg] 25 mg PO BID #60 04/13/16 salmeterol [Serevent Diskus] 2 puff INH BIDRT 30 Days #0 07/08/16 hydrocodone-acetaminophen [[place]] 1 tab PO Q4-6H PRN #10 tab 05/23/18 nitrofurantoin monohyd/m-cryst 100 mg PO BID #14 cap 05/23/18 [Macrobid] Allergies Allergy/AdvReac Type Severity Reaction Status Date / Time naproxen Allergy Mild MADE MY Verified 05/26/18 10:43 FACE NUMB meperidine Allergy Unknown Verified 05/26/18 10:43 Penicillins Allergy Unknown Verified 05/26/18 10:43 Sulfa (Sulfonamide Allergy Unknown Verified 05/26/18 10:43 Antibiotics) diphenhydramine AdvReac Shakiness Verified 05/26/18 10:43 [From Benadryl] Review of Systems Constitutional Reports body ache(s), Denies fever(s), Reports headache(s), Reports lethargy and Reports malaise Eyes Denies blurry vision and Denies diplopia ENT Ears, Nose, Mouth, and Throat: Denies vertigo, Denies dizziness, Reports headache(s), Reports disequilibrium and Denies sinus pressure Cardiovascular Denies chest pain, Denies syncope and Denies dyspnea Respiratory Denies cough, Denies dyspnea and Denies wheezing Gastrointestinal Gastrointestinal: Denies abdominal pain, Denies change in bowel habits, Reports nausea and Denies vomiting Genitourinary Denies dysuria Musculoskeletal Reports myalgias, Denies arthralgias, Reports limited range of motion, Reports muscle weakness, Denies numbness and Denies radiating pain into limb Integumentary/Breasts Denies rash Neurologic Denies vertigo, Denies dizziness, Denies syncope, Reports headache(s), Denies numbness and Reports disequilibrium Hematologic/Lymphatic Comments: Not on anticoagulation Allergic/Immunologic Denies wheezing PFSH Medical History COPD (chronic obstructive pulmonary disease) (Acute) Diabetes (Acute) Hypertension (Acute) Morbidly obese (Acute) Surgical History Status post appendectomy (Acute) Status post cholecystectomy (Acute) Social History household members: significant other Smoking Status: Never smoker Social History household members: significant other Smoking Status: Never smoker Exam Initial Vital Signs Initial Vital Signs: Vital Signs Pulse Rate 86 05/26/18 10:35 Respiratory Rate 22 05/26/18 10:35 Blood Pressure 173/84 H 05/26/18 10:35 Pulse Oximetry 93 05/26/18 10:35 Const General: cooperative, well groomed and No acute distress Orientation: alert, awake and oriented x3 HENMT Head: normal to inspection and normocephalic Face and sinus: normal facial exam Mouth: oral mucosae normal Eyes Pupils: PERRL EOM: EOM intact bilaterally Resp Effort & Inspection: no respiratory distress and tachypneic Auscultation: clear to auscultation bilaterally Cardio Rate: regular rate Rhythm: regular rhythm Pulses: radial pulses present GI Inspection: non-distended Palpation: No firm and No tender Back/Spine/Pelvis Cervical Spine: No cervical ROM abnormal Thoracic/Lumbar Spine: No thoracic spinal tenderness and No lumbar spinal tenderness Skin Lesions: no lesions Rashes: no rashes Neuro General: alert, awake and oriented x3 Cognition: normal cognition Speech: speech normal Extrem General: normal to inspection and capillary refill normal Psych Appearance: grossly normal and well kempt Course Orders Ordered: ED Orders 05/26/18 10:40 CT head/brain wo con Stat 05/26/18 10:41 XR chest 1V Stat EKG-12 Lead Stat 05/26/18 11:04 Comprehensive Metabolic Panel Stat Ethanol (ETOH) Stat Ketones (Beta-Hydroxybutyrate) Stat Lipase Stat Magnesium Stat Phosphorous Stat Troponin I Stat 05/26/18 11:15 Complete Blood Count AUTO DIFF Stat Lactate (Lactic Acid) Stat Partial Thromboplastin Time Stat Procalcitonin Stat Prothrombin Time INR Stat 05/26/18 11:25 Blood Culture Stat 05/26/18 11:55 Urinalysis and Microscopic Stat Urine Culture Stat 05/26/18 12:14 Arterial Blood Gas Stat 05/26/18 14:06 Education, smoking cessation ONGOING 05/26/18 14:15 MRSA PCR Urgent 05/26/18 15:00 B Type Natriuretic Peptide Stat Troponin I Stat 05/27/18 14:15 Basic Metabolic Panel DAILY Complete Blood Count AUTO DIFF DAILY 05/28/18 14:15 Basic Metabolic Panel DAILY Complete Blood Count AUTO DIFF DAILY 05/29/18 14:15 Basic Metabolic Panel DAILY Complete Blood Count AUTO DIFF DAILY Acetaminophen (Tylenol) 650 mg PO Q4H PRN PRN Reason: Fever Or Pain Hydrocodone Bitart/Acetaminophen ([place] 5/325) 1 tab PO Q4H PRN PRN Reason: Pain, Moderate (4-6) Albuterol (Ventolin Hfa) 1 puff INH Q4H PRN PRN Reason: Wheezing Carvedilol (Coreg) 25 mg PO BID KARTHIKEYAN Dextrose (D50w) 25 gm IV PRN PRN PRN Reason: Hypoglycemia Enoxaparin Sodium (Lovenox) 40 mg SUBCUT DAILY KARTHIKEYAN Last Admin: 05/26/18 17:20 Dose: 40 mg Sodium Chloride (Normal Saline 0.9%) 1,000 mls @ 75 mls/hr IV CONT KARTHIKEYAN Last Infusion: 05/26/18 14:40 Dose: 75 mls/hr Infusion: 05/26/18 14:05 Dose: 150 mls/hr Admin: 05/26/18 13:44 Dose: 150 mls/hr Levofloxacin (Levaquin) 750 mg in 150 mls @ 100 mls/hr IV Q24H KARTHIKEYAN Insulin Aspart (Novolog Flexpen) 0 unit SUBCUT ACHS KARTHIKEYAN; Protocol Last Admin: 05/26/18 17:20 Dose: 4 unit Insulin Human NPH (Humulin N) 28 unit SUBCUT DAILY KARTHIKEYAN Levetiracetam (Keppra) 1,000 mg PO BID KARTHIKEYAN Losartan Potassium (Cozaar) 100 mg PO DAILY KARTHIKEYAN Nystatin (Nystop) 1 applic TOP TID PRN PRN Reason: wound care Salmeterol Xinafoate (Serevent Diskus) 100 mcg INH RTBID KARTHIKEYAN Discontinued Medications Sodium Chloride (Normal Saline 0.9%) 1,000 mls @ 1,000 mls/hr IV BOLUS ONE Stop: 05/26/18 11:37 Last Infusion: 05/26/18 13:44 Dose: 0 mls/hr Admin: 05/26/18 11:22 Dose: 1,000 mls/hr Levofloxacin (Levaquin) 750 mg in 150 mls @ 100 mls/hr IV NOW ONE Stop: 05/26/18 13:44 Last Infusion: 05/26/18 14:40 Dose: 0 mls/hr Infusion: 05/26/18 14:04 Dose: 100 mls/hr Admin: 05/26/18 12:50 Dose: 100 mls/hr Levofloxacin (Levaquin) 750 mg in 150 mls @ 100 mls/hr IV Q24H [facility] Vital Signs - 8 hr 05/26/18 12:00 05/26/18 12:30 05/26/18 13:11 Temperature Pulse Rate 85 82 85 Respiratory Rate 20 33 H 18 Blood Pressure Blood Pressure [Right Arm] 170/76 H 173/73 H 165/60 H Pulse Oximetry 95 95 96 05/26/18 13:30 05/26/18 14:06 05/26/18 16:02 Temperature 98.9 F 99.6 F Pulse Rate 84 86 83 Respiratory Rate 22 20 16 Blood Pressure 142/66 H 146/73 H Blood Pressure [Right Arm] 167/77 H Pulse Oximetry 94 97 95 Medical Decision Making Lab Data Lab results reviewed: Yes I reviewed the patient's lab results. Result diagrams: 05/26/18 11:15 05/26/18 11:04 Lab Results 05/26/18 05/26/18 05/26/18 Range/Units 11:04 11:15 11:15 WBC 21.9 H (4.5-11.0) X10^3/uL RBC 4.34 (4.0-5.2) X10^6/uL Hgb 11.8 L (12.0-16.0) g/dL Hct 36.9 (36-46) % MCV 85.0 (80-100) fL MCH 27.2 (26-34) PG MCHC 32.0 (30-36) % RDW 16.1 H (11.6-14.8) % Plt Count 288 (150-400) X10^3/uL Neut % (Auto) 94.2 H (50-75) % Lymph % (Auto) 3.2 L (25-40) % [place] % (Auto) 2.4 L (3-14) % Eos % (Auto) 0.0 L (2-4) % Baso % (Auto) 0.2 (0-2) % Neut # (Auto) 44142 H (9709-6122) /uL Lymph # (Auto) 700 L (5856-7078) /uL [place] # (Auto) 500 (0-900) /uL Eos # (Auto) 0 (0-450) /uL Baso # (Auto) 0 (0-100) /uL PT 13.8 H (10.1-12.7) SECONDS INR 1.2 (0.9-1.3) APTT 25 L D (26.4-36.2) SECONDS ABG pH (7.35-7.45) ABG pCO2 (35-45) mmHg ABG pO2 (80-100) mmHg ABG HCO3 (22-26) mmol/L ABG Total CO2 (21-31) mmol/L ABG O2 Saturation (95-100) % ABG Base Excess (-2-2) mmol/L FiO2 Sodium 129 L (137-145) mmol/L Potassium 3.9 (3.4-5.1) mmol/L Chloride 81 L (98-107) mmol/L Carbon Dioxide 37 H (22-32) mmol/L BUN 23 H (7-17) mg/dL Creatinine 0.80 (0.52-1.04) mg/dL Estimated GFR > 60.0 (>60) mL/min BUN/Creatinine Ratio 28.8 H (6-22) Glucose 294 H (70-100) mg/dL Lactate (0.7-2.1) mmol/L Calcium 9.5 (8.4-10.2) mg/dL Phosphorus 2.9 (2.5-4.5) mg/dL Magnesium 1.7 (1.6-2.3) mg/dL Total Bilirubin 0.7 (0.2-1.3) mg/dL AST 29 (14-36) IU/L ALT 45 (9-52) IU/L Alkaline Phosphatase 147 H (38-126) U/L Troponin I 0.022 (0.01-0.034) ng/mL B-Natriuretic Peptide (<100) Total Protein 7.6 (6.3-8.2) g/dL Albumin 3.4 L (3.5-5.0) g/dL Globulin 4.2 H (1.7-4.1) g/dL Albumin/Globulin Ratio 0.8 L (1.0-2.8) Lipase 14 L (23-300) U/L Procalcitonin (<0.5) ng/mL Urine Color Urine Appearance Urine pH (4.5-8.0) Ur Specific [place] (1.000-1.035) Urine Protein (Negative) Urine Glucose (UA) (Negative) g/dL Urine Ketones (NEGATIVE) Urine Occult Blood (Negative) Urine Nitrate (Negative) Urine Bilirubin (NEGATIVE) Urine Urobilinogen (0.2) E.U./dL Ur Leukocyte Esterase (NEGATIVE) Urine RBC (0-5/HPF) Urine WBC (0-5/HPF) Amorphous Sediment Urine Bacteria (None) Ur Culture Indicated? Ethyl Alcohol < 10 mg/dL Ketones 0.27 H (<0.27) mmol/L 05/26/18 05/26/18 05/26/18 Range/Units 11:15 11:15 11:55 WBC (4.5-11.0) X10^3/uL RBC (4.0-5.2) X10^6/uL Hgb (12.0-16.0) g/dL Hct (36-46) % MCV (80-100) fL MCH (26-34) PG MCHC (30-36) % RDW (11.6-14.8) % Plt Count (150-400) X10^3/uL Neut % (Auto) (50-75) % Lymph % (Auto) (25-40) % [place] % (Auto) (3-14) % Eos % (Auto) (2-4) % Baso % (Auto) (0-2) % Neut # (Auto) (1409-4464) /uL Lymph # (Auto) (0785-7268) /uL [place] # (Auto) (0-900) /uL Eos # (Auto) (0-450) /uL Baso # (Auto) (0-100) /uL PT (10.1-12.7) SECONDS INR (0.9-1.3) APTT (26.4-36.2) SECONDS ABG pH (7.35-7.45) ABG pCO2 (35-45) mmHg ABG pO2 (80-100) mmHg ABG HCO3 (22-26) mmol/L ABG Total CO2 (21-31) mmol/L ABG O2 Saturation (95-100) % ABG Base Excess (-2-2) mmol/L FiO2 Sodium (137-145) mmol/L Potassium (3.4-5.1) mmol/L Chloride (98-107) mmol/L Carbon Dioxide (22-32) mmol/L BUN (7-17) mg/dL Creatinine (0.52-1.04) mg/dL Estimated GFR (>60) mL/min BUN/Creatinine Ratio (6-22) Glucose (70-100) mg/dL Lactate 1.2 (0.7-2.1) mmol/L Calcium (8.4-10.2) mg/dL Phosphorus (2.5-4.5) mg/dL Magnesium (1.6-2.3) mg/dL Total Bilirubin (0.2-1.3) mg/dL AST (14-36) IU/L ALT (9-52) IU/L Alkaline Phosphatase (38-126) U/L Troponin I (0.01-0.034) ng/mL B-Natriuretic Peptide (<100) Total Protein (6.3-8.2) g/dL Albumin (3.5-5.0) g/dL Globulin (1.7-4.1) g/dL Albumin/Globulin Ratio (1.0-2.8) Lipase (23-300) U/L Procalcitonin 0.80 H (<0.5) ng/mL Urine Color Yellow Urine Appearance Clear Urine pH 5.5 (4.5-8.0) Ur Specific [place] 1.015 (1.000-1.035) Urine Protein 1+ H (Negative) Urine Glucose (UA) 1+ H (Negative) g/dL Urine Ketones 1+ H (NEGATIVE) Urine Occult Blood 2+ H (Negative) Urine Nitrate Positive H (Negative) Urine Bilirubin Negative (NEGATIVE) Urine Urobilinogen 0.2 (0.2) E.U./dL Ur Leukocyte Esterase Trace H (NEGATIVE) Urine RBC 1-5/hpf (0-5/HPF) Urine WBC 5-10/hpf H (0-5/HPF) Amorphous Sediment 2+ Urine Bacteria Many (>30) H (None) Ur Culture Indicated? Specimen cultured Ethyl Alcohol mg/dL Ketones (<0.27) mmol/L 05/26/18 05/26/18 05/26/18 Range/Units 12:14 15:00 15:00 WBC (4.5-11.0) X10^3/uL RBC (4.0-5.2) X10^6/uL Hgb (12.0-16.0) g/dL Hct (36-46) % MCV (80-100) fL MCH (26-34) PG MCHC (30-36) % RDW (11.6-14.8) % Plt Count (150-400) X10^3/uL Neut % (Auto) (50-75) % Lymph % (Auto) (25-40) % [place] % (Auto) (3-14) % Eos % (Auto) (2-4) % Baso % (Auto) (0-2) % Neut # (Auto) (7992-2252) /uL Lymph # (Auto) (3960-4670) /uL [place] # (Auto) (0-900) /uL Eos # (Auto) (0-450) /uL Baso # (Auto) (0-100) /uL PT (10.1-12.7) SECONDS INR (0.9-1.3) APTT (26.4-36.2) SECONDS ABG pH 7.46 H (7.35-7.45) ABG pCO2 54.1 H (35-45) mmHg ABG pO2 83 (80-100) mmHg ABG HCO3 39 H (22-26) mmol/L ABG Total CO2 40 H (21-31) mmol/L ABG O2 Saturation 96 (95-100) % ABG Base Excess 15.0 H (-2-2) mmol/L FiO2 28 Sodium (137-145) mmol/L Potassium (3.4-5.1) mmol/L Chloride (98-107) mmol/L Carbon Dioxide (22-32) mmol/L BUN (7-17) mg/dL Creatinine (0.52-1.04) mg/dL Estimated GFR (>60) mL/min BUN/Creatinine Ratio (6-22) Glucose (70-100) mg/dL Lactate (0.7-2.1) mmol/L Calcium (8.4-10.2) mg/dL Phosphorus (2.5-4.5) mg/dL Magnesium (1.6-2.3) mg/dL Total Bilirubin (0.2-1.3) mg/dL AST (14-36) IU/L ALT (9-52) IU/L Alkaline Phosphatase (38-126) U/L Troponin I 0.020 (0.01-0.034) ng/mL B-Natriuretic Peptide 442 H (<100) Total Protein (6.3-8.2) g/dL Albumin (3.5-5.0) g/dL Globulin (1.7-4.1) g/dL Albumin/Globulin Ratio (1.0-2.8) Lipase (23-300) U/L Procalcitonin (<0.5) ng/mL Urine Color Urine Appearance Urine pH (4.5-8.0) Ur Specific [place] (1.000-1.035) Urine Protein (Negative) Urine Glucose (UA) (Negative) g/dL Urine Ketones (NEGATIVE) Urine Occult Blood (Negative) Urine Nitrate (Negative) Urine Bilirubin (NEGATIVE) Urine Urobilinogen (0.2) E.U./dL Ur Leukocyte Esterase (NEGATIVE) Urine RBC (0-5/HPF) Urine WBC (0-5/HPF) Amorphous Sediment Urine Bacteria (None) Ur Culture Indicated? Ethyl Alcohol mg/dL Ketones (<0.27) mmol/L Point of Care Testing Glucose POC 210 Point of care testing: Point of Care Testing Glucose POC [address] scan - head: Radiologist's impression: [place] [address] CT Scan Report Signed Patient: Rocío Enriquez KMR#: [id number] : 2Acct:[id number] Age/Sex: 57 / FDate of Service: 05/26/18 Loc: ED Accession Number: [id number] Procedure: CT head/brain wo con Ordering Provider: Neftali Monzon D.O. PROCEDURE: CT HEAD/BRAIN WO CON INDICATIONS: Altered mental status TECHNIQUE: Noncontrast 4.5 mm thick angled axial sections acquired from the foramen magnum to the vertex, with coronal and sagittal reformats. For radiation dose reduction, the following was used: automated exposure control, adjustment of mA and/or kV according to patient size. COMPARISON: Merged With [facility], CT, CT HEAD/BRAIN WO CON, 05/14/2018, 10:46. Merged With [facility], CT, CT HEAD/BRAIN WO CON, 04/22/2018, 12:13. Merged With [facility], CR, XR CHEST 1V, 05/23/2018, 15:00. FINDINGS: Image quality: Excellent. CSF spaces: Basal cisterns are patent. No extra-axial fluid collections. Ventricles are normal in size and shape. Brain: No midline shift. No acute hemorrhage. Left frontal high density mass with overlying periosteal reaction is present, as before, measuring roughly 36 mm anteroposterior , as before. there is moderate ill-defined hypodensity within the adjacent aspects of the left frontal lobe, compatible with edema. [place]-white matter interface is normal. Skull and face: Calvarium and visualized facial bones are intact, without suspicious lesions. Sinuses: Visualized sinuses and mastoids are clear. IMPRESSION: 1. No acute intracranial abnormality. 2. No change in left frontal meningioma with adjacent vasogenic edema. Dictated by: Titus Mera M.D. on 05/26/2018 at 12:12 Approved by: Titus Mera M.D. on 05/26/2018 at 12:14 Chest x-ray: Radiologist's impression: ROCEDURE: XR CHEST 1V INDICATIONS: possible sepsis TECHNIQUE: One view of the chest was acquired. COMPARISON: Merged With [facility], , XR CHEST 1V, 05/23/2018, 15:00. FINDINGS: Surgical changes and devices: None. Lungs and pleura: Lung volumes are low. Bilateral perihilar and basilar atelectasis versus pneumonia. No pleural effusions or pneumothorax. Mediastinum: Mediastinal contours appear normal. Heart size is normal. Bones and chest wall: No suspicious bony lesions. Overlying soft tissues appear unremarkable. IMPRESSION: Low lung volumes with bilateral atelectasis versus pneumonia. Dictated by: Titus Mera M.D. on 05/26/2018 at 12:11 Approved by: Titus Mera M.D. on 05/26/2018 at 12:11 ECG Data Attestation: I personally reviewed and interpreted this ECG as follows: Prior ECG tracings: not available for review Interpretation: Sinus rhythm Ventricular rate 82 Normal axis Normal QRS Normal QTC Nonspecific ST T wave changes MDM Narrative Medical decision making narrative: Patient was a nitrite positive urine and also with an elevated white blood cell count with a left shift. The chest x-ray also has some concerned about pneumonia. She was empirically started on Levaquin prior to the return of the urinalysis. EKG is unremarkable. Troponin is at baseline. Not clinically in heart failure. Patient is hyperglycemic and does have some ketones however is not acidotic. No other signs of DKA. Head CT shows no new abnormalities. Patient is not hypotensive. Given her baseline respiratory status the fact that she was not hypotensive. Her lactate of 1.2 I did not feel like she needed the 30 cc/kilos of fluids. Discussed the case with Dr. Lin with the hospitalist team who will admit the patient for continued IV antibiotics. Discussed the admission with the patient who expressed understanding and agreement with plan. Discharge Plan Departure Patient Disposition: Admitted As Inpatient Clinical Impression: Urinary tract infection, Weakness Discharge Date/Time: 05/26/18 14:10 Interventions: ED Discharge Assessment Last Done: 05/26/18 14:10 Admit Date/Time: 05/26/18 13:01 Admit Provider: Nato Lin
--- NOTE | 2018-05-26 10:41 | DI.RAD.S_ITS ---
PROCEDURE: XR CHEST 1V INDICATIONS: possible sepsis TECHNIQUE: One view of the chest was acquired. COMPARISON: [facility], CR, XR CHEST 1V, 05/23/2018, 15:00. FINDINGS: Surgical changes and devices: None. Lungs and pleura: Lung volumes are low. Bilateral perihilar and basilar atelectasis versus pneumonia. No pleural effusions or pneumothorax. Mediastinum: Mediastinal contours appear normal. Heart size is normal. Bones and chest wall: No suspicious bony lesions. Overlying soft tissues appear unremarkable. IMPRESSION: Low lung volumes with bilateral atelectasis versus pneumonia. Dictated by: Titus Mera M.D. on 05/26/2018 at 12:11 Approved by: Titus Mera M.D. on 05/26/2018 at 12:11
[2018-05-26] MEDS: SODIUM CHLORIDE 0.9% 1,000 ML 1000 ML IV (11:22)
--- NOTE | 2018-05-26 11:26 | PC.NURSE ---
pt is very drowsy. easily arousable to sound. mumbles words and keeps eyes closed when answering questions. confused to place. reoriented.
[2018-05-26 11:37] LABS: Lactate (Lactic Acid) 1.2 mmol/L (0.7-2.1)
[2018-05-26 11:38] LABS: INR 1.2 (0.9-1.3); Prothrombin Time 13.8 SECONDS (10.1-12.7)
[2018-05-26 11:39] LABS: Add Manual Diff / Slide Review NO; Basophils Absolute Auto 0 /uL (0-100); Basophils Percent Auto 0.2 % (0-2); Eosinophils Absolute Auto 0 /uL (0-450); Hematocrit 36.9 % (36-46); Hemoglobin 11.8 g/dL (12.0-16.0); Lymphocytes Absolute Auto 700 /uL (1100-4500); Lymphocytes Percent Auto 3.2 % (25-40); Mean Corpuscular Hemoglobin 27.2 PG (26-34); Monocytes Absolute Auto 500 /uL (0-900); Monocytes Percent Auto 2.4 % (3-14); Neutrophils Absolute Auto 20600 /uL (1500-7000); Neutrophils Percent Auto 94.2 % (50-75); Platelet Count 288 X10^3/uL (150-400); Red Blood Cell Count 4.34 X10^6/uL (4.0-5.2); Red Cell Distribution Width 16.1 % (11.6-14.8); White Blood Cell Count 21.9 X10^3/uL (4.5-11.0)
[2018-05-26 11:40] LABS: PTT Partial Thromboplastin Tim 25 SECONDS (26.4-36.2)
[2018-05-26 11:44] LABS: Alanine Aminotransferase 45 IU/L (9-52); Albumin 3.4 g/dL (3.5-5.0); Albumin Globulin Ratio 0.8 (1.0-2.8); Alkaline Phosphatase 147 U/L (38-126); Aspartate Aminotransferase 29 IU/L (14-36); BUN Creatinine Ratio 28.8 (6-22); Bilirubin Total 0.7 mg/dL (0.2-1.3); Blood Urea Nitrogen 23 mg/dL (7-17); Calcium 9.5 mg/dL (8.4-10.2); Chloride 81 mmol/L (98-107); Estimated Glomerular Filt Rate > 60.0 mL/min (>60); Globulin 4.2 g/dL (1.7-4.1); Glucose 294 mg/dL (70-100); HEMOLYSIS < 15 (0-50); Lipase 14 U/L (23-300); Magnesium 1.7 mg/dL (1.6-2.3); Phosphorous 2.9 mg/dL (2.5-4.5); Potassium 3.9 mmol/L (3.4-5.1); Sodium 129 mmol/L (137-145); Total Protein 7.6 g/dL (6.3-8.2)
[2018-05-26 11:47] LABS: Ketones (Beta-Hydroxybutyrate) 0.27 mmol/L (<0.27)
[2018-05-26 11:50] LABS: Carbon Dioxide 37 mmol/L (22-32)
[2018-05-26 11:58] LABS: Troponin I 0.022 ng/mL (0.01-0.034)
[2018-05-26 12:05] LABS: Ethanol (ETOH) < 10 mg/dL
[2018-05-26 12:15] LABS: Appearance Urine UA CLEAR; Bilirubin Urine UA NEGATIVE (NEGATIVE); Color Urine UA YELLOW; Glucose Urine UA 1+ g/dL (Negative); Ketones Urine UA 1+ (NEGATIVE); Leukocyte Esterase Urine UA TRACE (NEGATIVE); Nitrite Urine UA POSITIVE (Negative); Occult Blood Urine UA 2+ (Negative); Protein Urine UA 1+ (Negative); Specific Gravity Urine UA 1.015 (1.000-1.035); Urobilinogen Urine UA 0.2 E.U./dL (0.2); pH Urine UA 5.5 (4.5-8.0)
[2018-05-26 12:22] LABS: Amorphous Sediment Urine 2+; Bacteria Urine Many (>30); Culture Indicated Urine Specimen Cultured; RBC Urine 1-5/HPF (0-5/HPF); WBC Urine 5-10/HPF (0-5/HPF)
[2018-05-26 12:35] LABS: PCO2 ABG 54.1 mmHg (35-45); PO2 ABG 83 mmHg (80-100); pH ABG 7.46 (7.35-7.45)
[2018-05-26 12:36] LABS: Fractionated Inspired Oxygen 28; HCO3 ABG 39 mmol/L (22-26); Oxygen Saturation ABG 96 % (95-100); TCO2 ABG 40 mmol/L (21-31)
[2018-05-26] MEDS: levoFLOXacin 750 MG/150 ML PIGGYBACK 100 MG IV (12:50)
[2018-05-26] MEDS: SODIUM CHLORIDE 0.9% 1,000 ML 150 ML IV (13:44)
--- NOTE | 2018-05-26 14:51 | PC.NURSE ---
Pt admitted from ER with stable cerebral bleed. Vitals stable at this time. Oriented to room. Family present. Denies pain or headache. [place] draining yellow clear urine. Pt reports weakness over last few days. O2 sats = 92% on 2L. Pt calm and cooperative.
[2018-05-26 15:41] LABS: B Type Natriuretic Peptide 442 (<100)
[2018-05-26] MEDS: ENOXAPARIN 40 MG/0.4 ML SYRINGE SUBCUT (17:20)
[2018-05-26] MEDS: INSULIN ASPART 100 UNIT/ML INSULN PEN SUBCUT ×2 (17:20→21:41)
--- NOTE | 2018-05-26 18:07 | P.HP_ITS ---
History of Present Illness Date Patient Seen: 05/26/18 Chief complaint: Back & Head Pain Narrative: This is a 57-year-old chronically ill female with multiple comorbidities including hypoxia, oxygen dependent, congestive heart failure, new onset of diabetes mellitus and a new diagnosis of left parietal frontal meningioma. She was just here in the emergency department last week for altered mental status and on scanning was suspected to have a brain bleed. This was evaluated at [facility] and she was subsequently discharged without any intervention needed. Since getting home she has been steadily losing energy and has not been able to get out of bed for 2 days now. Her blood sugars have been above 250 and she has been experiencing pain with urination. Her speech is slowed down and become more difficult. She has no abdominal pain or flank pain. When seen here on May 23 she had a UA done and culture that grew Proteus and Klebsiella. She was placed on Macrobid but despite the organisms being pansensitive she has obviously worsened. Head CT done today shows no change in the newly diagnosed meningioma. I have known her for 22 years as her primary care physician in [place]. Patient History Medical History Hypoxia (Acute) Meningioma (Acute) Diabetes (Acute) Morbidly obese (Acute) COPD (chronic obstructive pulmonary disease) (Acute) Hypertension (Acute) Surgical History Status post appendectomy (Acute) Status post cholecystectomy (Acute) Family History Daughter No problems noted. Son No problems noted. Social History household members: significant other Smoking Status: Never smoker Family & Social History Family history unavailable: No Social History: household members significant other Prior Living Arrangements Mobile home Safety & Behavioral: Feels Safe in Current Yes Environment Been Physically Hurt or No Threatened By a Person Suicidal Ideation Description None Suicide Plan Description No Plan Tobacco & Substance use: Smoking Status Never smoker alcohol intake frequency 0-2 drinks per day Substance Use Type does not use Meds Home Medications Medication Instructions Recorded Confirmed Type acetaminophen 650 mg PO Q4H PRN #0 04/08/16 05/26/18 History carvedilol [Coreg] 25 mg PO BID #60 04/13/16 05/26/18 Rx fluticasone [Flovent Diskus] 100 mcg INH BID #0 07/04/16 05/26/18 History salmeterol [Serevent Diskus] 2 puff INH BIDRT 30 Days #0 07/08/16 05/26/18 Rx dexamethasone 2 mg PO BID 05/14/18 05/26/18 History losartan 100 mg PO DAILY 05/14/18 05/26/18 History amlodipine [Norvasc] 5 mg PO DAILY 05/23/18 05/26/18 History glucose 16 g PO .ONCE PRN 05/23/18 05/26/18 History hydrocodone-acetaminophen [[place]] 1 tab PO Q4-6H PRN #10 tab 05/23/18 05/26/18 Rx insulin NPH isoph U-100 human 20 units SUBCUT QPM 05/23/18 05/26/18 History insulin NPH isoph U-100 human 28 unit SUBCUT QAM 05/23/18 05/26/18 History insulin lispro [Humalog KwikPen 1 dose SUBCUT BEDTIME 05/23/18 05/26/18 History Insulin] insulin lispro [Humalog KwikPen 18 units SUBCUT TIDWM 05/23/18 05/26/18 History Insulin] levetiracetam 1,000 mg PO BID 05/23/18 05/26/18 History nitrofurantoin monohyd/m-cryst 100 mg PO BID #14 cap 05/23/18 05/26/18 Rx [Macrobid] nystatin [Nyamyc] 1 applic TOPICAL TID PRN 05/23/18 05/26/18 History albuterol sulfate [Proventil HFA] 1 puff INH Q4HP PRN 05/26/18 05/26/18 History Allergies Allergy/AdvReac Type Severity Reaction Status Date / Time naproxen Allergy Mild MADE MY Verified 05/26/18 10:43 FACE NUMB meperidine Allergy Unknown Verified 05/26/18 10:43 Penicillins Allergy Unknown Verified 05/26/18 10:43 Sulfa (Sulfonamide Allergy Unknown Verified 05/26/18 10:43 Antibiotics) diphenhydramine AdvReac Shakiness Verified 05/26/18 10:43 [From Benadryl] Review of Systems Review of Systems Lack of energy, difficulty speaking, dysuria, weakness all present. Negative for fevers, chills, sweats, pain, hematuria, abdominal pain, chest pain , shortness of breath, joint pain, seizures, coughing, headache, new rash. Exam Vital Signs (past 8 hours): - 05/26/18 10:35 05/26/18 11:00 05/26/18 12:00 Temperature Pulse Rate 86 82 85 Respiratory Rate 22 21 20 Blood Pressure 173/84 H Blood Pressure [Right Arm] 160/68 H 170/76 H Pulse Oximetry 93 95 05/26/18 12:30 05/26/18 13:11 05/26/18 13:30 Temperature Pulse Rate 82 85 84 Respiratory Rate 33 H 18 22 Blood Pressure Blood Pressure [Right Arm] 173/73 H 165/60 H 167/77 H Pulse Oximetry 95 96 94 05/26/18 14:06 05/26/18 16:02 Temperature 98.9 F 99.6 F Pulse Rate 86 83 Respiratory Rate 20 16 Blood Pressure 142/66 H 146/73 H Blood Pressure [Right Arm] Pulse Oximetry 97 95 Oxygen Delivery Method Nasal Cannula Oxygen Flow Rate 3 Narrative Exam Narrative: She is oriented x3. She easily recognizes me. She appears considerably more pale/grayish to her skin color than usual. There is no apparent distress. Her responses and her voice volume are diminished compared to baseline. Pupils are equally round and reactive to light and accommodation. Extraocular muscles are intact. Sclerae are pink and nonicteric. Throat looks normal. No lymph nodes are felt head, neck, supraclavicular area. There is no thyromegaly. Her neck is very short and has quite a bit of superfluous tissue to go along with her general obesity. JVD is less than 6 cm. No carotid bruits are heard. Heart is regular rate and rhythm without murmur. Lungs are clear to auscultation bilaterally. Abdomen is obese, bowel sounds positive, no organomegaly, bowel sounds active. Extremities have no ankle edema. Neuro exam. Cranial nerves 2-12 tested and intact. Responses are slow. Motor function is 4/5 throughout. Reflexes are symmetric and normal active. Skin. She has several round reddish lesions on her lower legs which she attributes to ?an allergy to the compression hose.? Her skin color is generally metz. Objective Labs Result Diagrams: 05/26/18 11:15 05/26/18 11:04 Labs: Laboratory Results - last 24 hr 05/26/18 05/26/18 05/26/18 11:04 11:15 11:15 WBC 21.9 H RBC 4.34 Hgb 11.8 L Hct 36.9 MCV 85.0 MCH 27.2 MCHC 32.0 RDW 16.1 H Plt Count 288 Neut % (Auto) 94.2 H Lymph % (Auto) 3.2 L Orange % (Auto) 2.4 L Eos % (Auto) 0.0 L Baso % (Auto) 0.2 Neut # (Auto) 95482 H Lymph # (Auto) 700 L Orange # (Auto) 500 Eos # (Auto) 0 Baso # (Auto) 0 PT 13.8 H INR 1.2 APTT 25 L D ABG pH ABG pCO2 ABG pO2 ABG HCO3 ABG Total CO2 ABG O2 Saturation ABG Base Excess FiO2 Sodium 129 L Potassium 3.9 Chloride 81 L Carbon Dioxide 37 H BUN 23 H Creatinine 0.80 Estimated GFR > 60.0 BUN/Creatinine Ratio 28.8 H Glucose 294 H Lactate Calcium 9.5 Phosphorus 2.9 Magnesium 1.7 Total Bilirubin 0.7 AST 29 ALT 45 Alkaline Phosphatase 147 H Troponin I 0.022 B-Natriuretic Peptide Total Protein 7.6 Albumin 3.4 L Globulin 4.2 H Albumin/Globulin Ratio 0.8 L Lipase 14 L Procalcitonin Urine Color Urine Appearance Urine pH Ur Specific [place] Urine Protein Urine Glucose (UA) Urine Ketones Urine Occult Blood Urine Nitrate Urine Bilirubin Urine Urobilinogen Ur Leukocyte Esterase Urine RBC Urine WBC Amorphous Sediment Urine Bacteria Ur Culture Indicated? Ethyl Alcohol < 10 Ketones 0.27 H 05/26/18 05/26/18 05/26/18 11:15 11:15 11:55 WBC RBC Hgb Hct MCV MCH MCHC RDW Plt Count Neut % (Auto) Lymph % (Auto) Orange % (Auto) Eos % (Auto) Baso % (Auto) Neut # (Auto) Lymph # (Auto) Orange # (Auto) Eos # (Auto) Baso # (Auto) PT INR APTT ABG pH ABG pCO2 ABG pO2 ABG HCO3 ABG Total CO2 ABG O2 Saturation ABG Base Excess FiO2 Sodium Potassium Chloride Carbon Dioxide BUN Creatinine Estimated GFR BUN/Creatinine Ratio Glucose Lactate 1.2 Calcium Phosphorus Magnesium Total Bilirubin AST ALT Alkaline Phosphatase Troponin I B-Natriuretic Peptide Total Protein Albumin Globulin Albumin/Globulin Ratio Lipase Procalcitonin 0.80 H Urine Color Yellow Urine Appearance Clear Urine pH 5.5 Ur Specific [place] 1.015 Urine Protein 1+ H Urine Glucose (UA) 1+ H Urine Ketones 1+ H Urine Occult Blood 2+ H Urine Nitrate Positive H Urine Bilirubin Negative Urine Urobilinogen 0.2 Ur Leukocyte Esterase Trace H Urine RBC 1-5/hpf Urine WBC 5-10/hpf H Amorphous Sediment 2+ Urine Bacteria Many (>30) H Ur Culture Indicated? Specimen cultured Ethyl Alcohol Ketones 05/26/18 05/26/18 05/26/18 12:14 15:00 15:00 WBC RBC Hgb Hct MCV MCH MCHC RDW Plt Count Neut % (Auto) Lymph % (Auto) Orange % (Auto) Eos % (Auto) Baso % (Auto) Neut # (Auto) Lymph # (Auto) Orange # (Auto) Eos # (Auto) Baso # (Auto) PT INR APTT ABG pH 7.46 H ABG pCO2 54.1 H ABG pO2 83 ABG HCO3 39 H ABG Total CO2 40 H ABG O2 Saturation 96 ABG Base Excess 15.0 H FiO2 28 Sodium Potassium Chloride Carbon Dioxide BUN Creatinine Estimated GFR BUN/Creatinine Ratio Glucose Lactate Calcium Phosphorus Magnesium Total Bilirubin AST ALT Alkaline Phosphatase Troponin I 0.020 B-Natriuretic Peptide 442 H Total Protein Albumin Globulin Albumin/Globulin Ratio Lipase Procalcitonin Urine Color Urine Appearance Urine pH Ur Specific [place] Urine Protein Urine Glucose (UA) Urine Ketones Urine Occult Blood Urine Nitrate Urine Bilirubin Urine Urobilinogen Ur Leukocyte Esterase Urine RBC Urine WBC Amorphous Sediment Urine Bacteria Ur Culture Indicated? Ethyl Alcohol Ketones Assessment & Plan (1) Urinary tract infection: Problem details: This recently cultured Klebsiella/Proteus has worsened into apparent pyelonephritis despite melton sensitivity and Macrobid use. She will be placed on IV Levaquin. Blood cultures will be done. IV fluid support has been initiated. She will require ICU care for the time being. The leukocytosis with a white blood count of 21.7 will be followed daily. Qualifiers: Encounter type: Hematuria presence: without hematuria Indwelling urinary catheter type: Urinary tract infection type: site unspecified Qualified Code(s): N39.0 - Urinary tract infection, site not specified Current visit: Yes Status: Acute (2) Meningioma: Problem details: This is apparently stable and not related to the current symptoms. Neurosurgical outpatient evaluation is in process. She is on Keppra as a precaution for seizure prevention. Current visit: Yes Status: Acute (3) Hypoxia: Problem details: She is at her baseline hypoxia with 2 L nasal cannula as she takes at home. Current visit: Yes Status: Acute (4) Weakness: Problem details: This weakness appears to be related to the pyelonephritis/possible urosepsis. Is expected to improve with antibiotics given IV. PT and OT may be needed. Current visit: Yes Status: Acute (5) Diabetes: Problem details: This is a relatively new diagnosis for her. She will be on her usual NPH and Aspart correctional scale. Current visit: Yes Status: Acute (6) COPD (chronic obstructive pulmonary disease): Problem details: No current exacerbation. Continue on oxygen. Current visit: Yes Status: Acute (7) CHF exacerbation: Problem details: Continue IV fluids at this time, transitioning to her home diuretics as indicated during this hospitalization or at discharge. Despite the BNP of 442 and the nonspecific/inadequate chest x-ray she appears to need IV fluids at this time. Continue carvedilol and losartan. Current visit: Yes Status: Acute (8) Hypertension: Problem details: Continue carvedilol and losartan. Current visit: Yes Status: Acute Quality VTE Deep Vein Thrombosis/Pulmonary Embolism Present on Admission: No
[2018-05-26] MEDS: SALMETEROL 50 MCG DISKUS 100 PUFF INH (19:31)
[2018-05-26] MEDS: CARVEDILOL 25 MG TABLET PO (21:40)
[2018-05-26] MEDS: levETIRAcetam 250 MG TABLET 1000 MG PO (21:40)
[2018-05-27] VITALS (43 sets, daily range): BP systolic 94–204; BP diastolic 33–114; PULSE 67–110; RESP 17–34; TEMP 24–38.6; O2SAT 84–98
--- NOTE | 2018-05-27 | DI.CT.S_ITS ---
PROCEDURE: CT ANGIO HEAD AND NECK INDICATIONS: poss CVA, decreased LOC TECHNIQUE: Pre-contrast 4.5 mm thick sections acquired from the foramen magnum to the vertex. After the administration of intravenous contrast, 1 mm thick sections acquired from the aortic arch through the [place] of [place]. Post-contrast 4.5 mm thick sections then re-acquired from the foramen magnum to the vertex. 3-dimensional [id number] (MIP) and/or volume rendering reformats were acquired of the central intracranial vasculature and neck separately. COMPARISON: [facility], CT, CT HEAD/BRAIN WO CON, 04/22/2018, 12:13. [facility], CR, XR CHEST 1V, 05/26/2018, 11:06. [facility], CT, CT ANGIO CHEST ABDOMEN PELVIS, 05/23/2018, 15:39. [facility], CR, XR CHEST 1V, 05/27/2018, 7:53. [facility], CT, CT HEAD/BRAIN WO CON, 05/26/2018, 11:31. FINDINGS: Image quality: Quality of visualization is limited by patient motion during image acquisition. BRAIN: CSF spaces: Ventricles are stable in size and shape, mildly distorted on the left by a large homogeneous high density mass which appears to enhance, likely a meningioma, with adjacent mild vasogenic edema previously described. Basal cisterns are patent. No extra-axial fluid collections. Brain: No midline shift. No intracranial bleeds or masses. East-white matter interface appears intact. Skull and face: Calvarium and facial bones appear intact, without suspicious lesions. Orbits appear normal. Sinuses: Sinuses and mastoids are clear. HEAD CT ANGIOGRAPHY: Anterior circulation: Intracranial internal carotid arteries are normal in size and flow. The flow within the paired anterior cerebral arteries is normal and symmetric. The flow within the middle cerebral arteries is normal and symmetric. The anterior communicating artery is seen. No aneurysms are seen. Posterior circulation: Visualized portions of the vertebral arteries demonstrate normal caliber, and join to form a normal appearing basilar artery. Flow within the posterior cerebral arteries is normal and symmetric. No aneurysms are seen. NECK CT ANGIOGRAPHY: Carotid system: The great vessels demonstrate a conventional anatomy as they arise from the aortic arch. The origins of the common carotid arteries appear patent. The common carotid arteries demonstrate normal caliber and courses. The bifurcation regions are both widely patent. The internal carotid arteries demonstrate normal calibers and courses. Posterior circulation: The origins of the vertebral arteries both appear widely patent. The more superior extracranial portions of both vertebral arteries also demonstrate normal courses and calibers. They join to form a normal appearing basilar artery. Soft tissues: Visualized neck soft tissues demonstrate no suspicious abnormalities. Note is made of significant interval worsening of airspace disease, right greater than left, with lobulated areas of confluent lateral and posterior airspace consolidation, including extending to abut the right margin of the mediastinum. Bones: No suspicious bony lesions. Visualized cervical spine appears normally aligned. IMPRESSION: Quality of visualization is significantly limited by patient motion during image acquisition. No definite embolic disease is found. No aneurysm or dissection is suspected. Large previously described presumed left hemispheric meningioma, measuring up to 3.5 by 3.7 cm in maximal dimension, AP and craniocaudad respectively. This has adjacent vasogenic edema and produces mass effect distorting the left lateral ventricle, mildly compressing it rightward. Neurosurgical consultation is recommended. Worsening airspace disease bilaterally, with dense lobulated pulmonary consolidation now present at the partially visualized right mid and upper lung. The quality of visualization is limited by patient motion but it is possible that there is a component of pulmonary infarction intermixed with pneumonia. Heterogeneous areas of low attenuation are seen within the consolidated lung parenchyma but motion during image acquisition can produce such a heterogeneous appearance. Any quantitative measurements of stenosis were performed using NASCET criteria. Dictated by: Xander Hopkins M.D. on 05/27/2018 at 19:44 Approved by: Xander Hopkins M.D. on 05/27/2018 at 19:57
[2018-05-27] MEDS: HYDROCODONE/ACET 5/325 TABLET 1 TAB PO (01:16)
[2018-05-27 02:28] LABS: Fractionated Inspired Oxygen 50; HCO3 ABG 38 mmol/L (22-26); Oxygen Saturation ABG 96 % (95-100); PCO2 ABG 69.6 mmHg (35-45); PO2 ABG 88 mmHg (80-100); TCO2 ABG 40 mmol/L (21-31); pH ABG 7.35 (7.35-7.45)
[2018-05-27 02:54] LABS: Acinetobacter baumannii Not Detected (Not Detect); Enterobacteriaceae species Not Detected (Not Detect); Enterococcus species Not Detected (Not Detect); Listeria monocytogenes Not Detected (Not Detect); Staphylococcus species Detected (Not Detect); Streptococcus agalactiae (Gr B Not Detected (Not Detect); Streptococcus pneumonia Not Detected (Not Detect); Streptococcus pyogenes (Gr A) Not Detected (Not Detect); Streptococcus species Not Detected (Not Detect)
[2018-05-27 02:55] LABS: Candida albicans Not Detected (Not Detect); Candida glabrata Not Detected (Not Detect); Candida krusei Not Detected (Not Detect); Candida parapsilosis Not Detected (Not Detect); Candida tropicalis Not Detected (Not Detect); E. coli Not Detected (Not Detect); Enterobacter cloacae complex Not Detected (Not Detect); Haemophilus influenzae Not Detected (Not Detect); Neisseria meningitidis Not Detected (Not Detect); Proteus species Not Detected (Not Detect); Pseudomonas aeruginosa Not Detected (Not Detect); Serratia marcescens Not Detected (Not Detect)
[2018-05-27 02:56] LABS: Methicillin-resistant gene Detected (Not Detect)
[2018-05-27] MEDS: LORazepam 2 MG/ML SYRINGE 1 MG IV ×3 (02:59→06:48)
[2018-05-27] MEDS: SODIUM CHLORIDE 0.9% 1,000 ML 75 ML IV (02:59)
[2018-05-27] MEDS: VANCOMYCIN IV (04:06)
[2018-05-27] MEDS: SODIUM CHLORIDE 0.9% IV (04:06)
[2018-05-27] MEDS: VANCOMYCIN PER PHARMACY 1 REQUEST MISC (04:53)
[2018-05-27 06:00] LABS: Hematocrit 33.2 % (36-46); Hemoglobin 10.7 g/dL (12.0-16.0); Mean Corpuscular HGB Conc 32.3 % (30-36); Mean Corpuscular Hemoglobin 27.4 PG (26-34); Mean Corpuscular Volume 84.6 fL (80-100); Platelet Count 230 X10^3/uL (150-400); Red Blood Cell Count 3.92 X10^6/uL (4.0-5.2); Red Cell Distribution Width 16.3 % (11.6-14.8); White Blood Cell Count 21.7 X10^3/uL (4.5-11.0)
[2018-05-27 06:02] LABS: Add Manual Diff / Slide Review YES
[2018-05-27 06:09] LABS: BUN Creatinine Ratio 23.3 (6-22); Blood Urea Nitrogen 14 mg/dL (7-17); Calcium 8.6 mg/dL (8.4-10.2); Carbon Dioxide 38 mmol/L (22-32); Chloride 85 mmol/L (98-107); Estimated Glomerular Filt Rate > 60.0 mL/min (>60); Glucose 258 mg/dL (70-100); HEMOLYSIS < 15 (0-50); Potassium 3.4 mmol/L (3.4-5.1); Sodium 129 mmol/L (137-145)
[2018-05-27 06:22] LABS: HCO3 ABG 37 mmol/L (22-26); Oxygen Saturation ABG 91 % (95-100); PCO2 ABG 54.7 mmHg (35-45); PO2 ABG 60 mmHg (80-100); TCO2 ABG 38 mmol/L (21-31); pH ABG 7.43 (7.35-7.45)
[2018-05-27 06:23] LABS: Fractionated Inspired Oxygen 35
--- NOTE | 2018-05-27 06:56 | PC.NURSE ---
NOC Shift: Pt w/sepsis unknown etiology pt confused throughout shift, impulsive. ST on tele up to 120's, HTN. At 0100 pt having difficulty breathing w/SaO2's dropping to below 85% on 4LNC. Pt w/known COPD, RT notified and bedside inhaler given. Pt continued to have upper airway stridor, decreasing sats, increasing RR, and HTN now 200/100's. Kelvin CHILDERS notified and in to assess pt status. Attempts to start new PIV failed after several attempts by 3 seperate RN's. Mary notified for PICC placement today for IV ABX tx. ABG drawn at CO2 69. Pt placed on Bipap at 0300. Tolerating w/intermittent doses of Ativan. Pt placed in contact isolation at 0200 after BC x4 bottles resulted in MRSA. Nasal swab positive @1415 yesterday but not placed in contact isolation. ICU status.
[2018-05-27 07:15] LABS: Anisocytosis 1+; Neutrophils Absolute Manual 19964 /uL (3000-5900); Total Cells Counted 100
--- NOTE | 2018-05-27 07:49 | DI.RAD.S_ITS ---
PROCEDURE: XR CHEST 1V INDICATIONS: PICC placement TECHNIQUE: One view of the chest was acquired. COMPARISON: [facility], CR, XR CHEST 1V, 05/26/2018, 11:06. [facility], CR, XR CHEST 1V, 05/23/2018, 15:00. FINDINGS: Surgical changes and devices: What appears to be a PICC line has been placed from left-sided approach, only partially visualized by this study which is compromised by patient rotation and tilt strongly leftward. Considering the limitations of the study the PICC line likely is within the expected position of the superior vena cava, distal SVC Lungs and pleura: Lungs are abnormal with a generalized alveolar infiltration pattern consistent with moderately severe pulmonary edema or generalized pneumonia. No pleural effusions or pneumothorax. Mediastinum: Mediastinal contours appear normal. Heart size is normal. Bones and chest wall: No suspicious bony lesions. Overlying soft tissues appear unremarkable. IMPRESSION: PICC line placement, but the patient is strongly rotated and tilted leftward. This is a significant factor in accurately determining positioning of the PICC line. Statistically it likely is in the distal SVC but repeat imaging likely is warranted unless clinically unnecessary. Generalized alveolar edema pattern, quite prominent, either representing a relatively severe degree of pulmonary edema from cardiogenic origin, versus generalized moderately severe to severe pneumonia. Dictated by: Xander Hopkins M.D. on 05/27/2018 at 8:43 Approved by: Xander Hopkins M.D. on 05/27/2018 at 8:46
--- NOTE | 2018-05-27 09:17 | P.PN_ITS ---
Subjective Date Patient Seen: 05/27/18 Interval history: Rocío Enriquez is a 57-year-old chronically ill female with multiple comorbidities including acute hypoxemic respiratory failure oxygen dependent, congestive heart failure, new onset of diabetes mellitus and a new diagnosis of left parietal frontal meningioma who presented for progressive worsening weakness and headache. She was found to have Staph aureus bacteremia in 4:4 bottles pending sensitivities in setting of positive MRSA screen possibly from previous IV during hospitalization at [facility]. This morning the patient is increasingly obtunded and opens her eyes only to painful stimuli. She received a dose of Ativan early this morning for agitation. She is stable on BiPAP. Last ABG demonstrated hypoxemia and hypercarbia with repeat pending in 2 hr on BiPAP. Exam Vital Signs (past 8 hours): - 05/27/18 02:00 05/27/18 03:00 05/27/18 04:00 Temperature 97.8 F Pulse Rate 110 H 88 84 Respiratory Rate 34 H 25 H 22 Blood Pressure 202/114 H 151/82 H 161/88 H Pulse Oximetry 84 L 92 95 05/27/18 04:16 05/27/18 05:00 05/27/18 05:20 Temperature Pulse Rate 98 H 84 Respiratory Rate 33 H 23 Blood Pressure 189/97 H 158/90 H Pulse Oximetry 94 87 L 91 05/27/18 06:00 05/27/18 06:13 05/27/18 07:00 Temperature 98.7 F Pulse Rate 88 87 Respiratory Rate 22 21 Blood Pressure 178/91 H 178/91 H 183/80 H Pulse Oximetry 93 94 05/27/18 08:00 05/27/18 08:28 05/27/18 09:00 Temperature 98.6 F 99.8 F H Pulse Rate 89 89 Respiratory Rate 26 H 28 H Blood Pressure 136/75 170/94 H 101/33 L Pulse Oximetry 94 98 Fraction of Inspired Oxygen 45 Oxygen Delivery Method BiPAP Oxygen Flow Rate 30 Narrative Exam Narrative: General: Middle-aged female lying in bed and in no acute distress, somnolent and mildly of tended only responsive to painful stimuli, well-developed, well- nourished. HEENT: Normocephalic, atraumatic. External ears without defect. Pupils dilated, equal, round, and reactive to light. Anicteric sclerae, moist conjunctivae, and no lid lag. Neck: Supple with full range of motion. No jugular venous distension. No bruits. No lymphadenopathy or thyromegaly. Cardiovascular: Regular rate and rhythm without murmurs, rubs, or gallops appreciated. Pulmonary: Diminished lung sounds throughout but appear clear and passive on BiPAP. Abdomen: Soft, obese bowel sounds present, does not appear to be tender, nondistended. No hepatosplenomegaly or masses appreciated. Extremities: No clubbing or cyanosis. Mild edema to pretibial area bilaterally with several nodules/pustules with different stages of healing on right lower extremity. Skin: Normal temperature, turgor, and texture; no rash, ulcers, or subcutaneous nodules appreciated. Neurological: Cranial nerves grossly intact. Somnolent and mildly obtunded. Only arouses to painful stimuli. Objective Labs Result Diagrams: 05/27/18 05:37 05/27/18 05:37 Labs: Laboratory Results - last 24 hr 05/26/18 05/26/18 05/26/18 11:04 11:15 11:15 WBC 21.9 H RBC 4.34 Hgb 11.8 L Hct 36.9 MCV 85.0 MCH 27.2 MCHC 32.0 RDW 16.1 H Plt Count 288 Neut % (Auto) 94.2 H Lymph % (Auto) 3.2 L [place] % (Auto) 2.4 L Eos % (Auto) 0.0 L Baso % (Auto) 0.2 Neut # (Auto) 35420 H Lymph # (Auto) 700 L [place] # (Auto) 500 Eos # (Auto) 0 Baso # (Auto) 0 Total Counted Seg Neutrophils % Lymphocytes % (Manual) Atypical Lymphs % Monocytes % (Manual) Neutrophils # (Manual) RBC Morphology Anisocytosis PT 13.8 H INR 1.2 APTT 25 L D ABG pH ABG pCO2 ABG pO2 ABG HCO3 ABG Total CO2 ABG O2 Saturation ABG Base Excess FiO2 Sodium 129 L Potassium 3.9 Chloride 81 L Carbon Dioxide 37 H BUN 23 H Creatinine 0.80 Estimated GFR > 60.0 BUN/Creatinine Ratio 28.8 H Glucose 294 H Lactate Calcium 9.5 Phosphorus 2.9 Magnesium 1.7 Total Bilirubin 0.7 AST 29 ALT 45 Alkaline Phosphatase 147 H Troponin I 0.022 B-Natriuretic Peptide Total Protein 7.6 Albumin 3.4 L Globulin 4.2 H Albumin/Globulin Ratio 0.8 L Lipase 14 L Procalcitonin Urine Color Urine Appearance Urine pH Ur Specific [place] Urine Protein Urine Glucose (UA) Urine Ketones Urine Occult Blood Urine Nitrate Urine Bilirubin Urine Urobilinogen Ur Leukocyte Esterase Urine RBC Urine WBC Amorphous Sediment Urine Bacteria Ur Culture Indicated? Nasal Screen MRSA (PCR) Ethyl Alcohol < 10 Ketones 0.27 H A. baumannii (PCR) Alexandra albicans (PCR) C. glabrata (PCR) C. krusei (PCR) C. parapsilosis (PCR) C. tropicalis (PCR) Enterobacteriac sp PCR E. cloacae complex PCR Enterococcus sp PCR E. coli (PCR) H. influenzae (PCR) Klebsiella oxytoca PCR Klebsiella pneumoniae List. monocytogenes PCR N. meningitidis (PCR) Proteus species (PCR) Serratia marcescens PCR Staphylococcus sp PCR Staph aureus (PCR) mecA-Methicil Res Gene Streptococcus sp PCR Group A Strep (PCR) Strep agalactiae (PCR) Strep pneumoniae (PCR) P. aeruginosa (PCR) Gretchen/B-Vanco Res Genes KPC-Carbap Res Gene PCR 05/26/18 05/26/18 05/26/18 11:15 11:15 11:55 WBC RBC Hgb Hct MCV MCH MCHC RDW Plt Count Neut % (Auto) Lymph % (Auto) [place] % (Auto) Eos % (Auto) Baso % (Auto) Neut # (Auto) Lymph # (Auto) [place] # (Auto) Eos # (Auto) Baso # (Auto) Total Counted Seg Neutrophils % Lymphocytes % (Manual) Atypical Lymphs % Monocytes % (Manual) Neutrophils # (Manual) RBC Morphology Anisocytosis PT INR APTT ABG pH ABG pCO2 ABG pO2 ABG HCO3 ABG Total CO2 ABG O2 Saturation ABG Base Excess FiO2 Sodium Potassium Chloride Carbon Dioxide BUN Creatinine Estimated GFR BUN/Creatinine Ratio Glucose Lactate 1.2 Calcium Phosphorus Magnesium Total Bilirubin AST ALT Alkaline Phosphatase Troponin I B-Natriuretic Peptide Total Protein Albumin Globulin Albumin/Globulin Ratio Lipase Procalcitonin 0.80 H Urine Color Yellow Urine Appearance Clear Urine pH 5.5 Ur Specific [place] 1.015 Urine Protein 1+ H Urine Glucose (UA) 1+ H Urine Ketones 1+ H Urine Occult Blood 2+ H Urine Nitrate Positive H Urine Bilirubin Negative Urine Urobilinogen 0.2 Ur Leukocyte Esterase Trace H Urine RBC 1-5/hpf Urine WBC 5-10/hpf H Amorphous Sediment 2+ Urine Bacteria Many (>30) H Ur Culture Indicated? Specimen cultured Nasal Screen MRSA (PCR) Ethyl Alcohol Ketones A. baumannii (PCR) Alexandra albicans (PCR) C. glabrata (PCR) C. krusei (PCR) C. parapsilosis (PCR) C. tropicalis (PCR) Enterobacteriac sp PCR E. cloacae complex PCR Enterococcus sp PCR E. coli (PCR) H. influenzae (PCR) Klebsiella oxytoca PCR Klebsiella pneumoniae List. monocytogenes PCR N. meningitidis (PCR) Proteus species (PCR) Serratia marcescens PCR Staphylococcus sp PCR Staph aureus (PCR) mecA-Methicil Res Gene Streptococcus sp PCR Group A Strep (PCR) Strep agalactiae (PCR) Strep pneumoniae (PCR) P. aeruginosa (PCR) Gretchen/B-Vanco Res Genes KPC-Carbap Res Gene PCR 05/26/18 05/26/18 05/26/18 12:14 14:15 15:00 WBC RBC Hgb Hct MCV MCH MCHC RDW Plt Count Neut % (Auto) Lymph % (Auto) [place] % (Auto) Eos % (Auto) Baso % (Auto) Neut # (Auto) Lymph # (Auto) [place] # (Auto) Eos # (Auto) Baso # (Auto) Total Counted Seg Neutrophils % Lymphocytes % (Manual) Atypical Lymphs % Monocytes % (Manual) Neutrophils # (Manual) RBC Morphology Anisocytosis PT INR APTT ABG pH 7.46 H ABG pCO2 54.1 H ABG pO2 83 ABG HCO3 39 H ABG Total CO2 40 H ABG O2 Saturation 96 ABG Base Excess 15.0 H FiO2 28 Sodium Potassium Chloride Carbon Dioxide BUN Creatinine Estimated GFR BUN/Creatinine Ratio Glucose Lactate Calcium Phosphorus Magnesium Total Bilirubin AST ALT Alkaline Phosphatase Troponin I 0.020 B-Natriuretic Peptide Total Protein Albumin Globulin Albumin/Globulin Ratio Lipase Procalcitonin Urine Color Urine Appearance Urine pH Ur Specific [place] Urine Protein Urine Glucose (UA) Urine Ketones Urine Occult Blood Urine Nitrate Urine Bilirubin Urine Urobilinogen Ur Leukocyte Esterase Urine RBC Urine WBC Amorphous Sediment Urine Bacteria Ur Culture Indicated? Nasal Screen MRSA (PCR) Positive for mrsa H Ethyl Alcohol Ketones A. baumannii (PCR) Alexandra albicans (PCR) C. glabrata (PCR) C. krusei (PCR) C. parapsilosis (PCR) C. tropicalis (PCR) Enterobacteriac sp PCR E. cloacae complex PCR Enterococcus sp PCR E. coli (PCR) H. influenzae (PCR) Klebsiella oxytoca PCR Klebsiella pneumoniae List. monocytogenes PCR N. meningitidis (PCR) Proteus species (PCR) Serratia marcescens PCR Staphylococcus sp PCR Staph aureus (PCR) mecA-Methicil Res Gene Streptococcus sp PCR Group A Strep (PCR) Strep agalactiae (PCR) Strep pneumoniae (PCR) P. aeruginosa (PCR) Gretchen/B-Vanco Res Genes KPC-Carbap Res Gene PCR 05/26/18 05/27/18 05/27/18 15:00 02:18 05:37 WBC 21.7 H RBC 3.92 L Hgb 10.7 L Hct 33.2 L MCV 84.6 MCH 27.4 MCHC 32.3 RDW 16.3 H Plt Count 230 Neut % (Auto) Not Reportable Lymph % (Auto) Not Reportable [place] % (Auto) Not Reportable Eos % (Auto) Not Reportable Baso % (Auto) Not Reportable Neut # (Auto) Lymph # (Auto) Not Reportable [place] # (Auto) Not Reportable Eos # (Auto) Baso # (Auto) Not Reportable Total Counted 100 Seg Neutrophils % 92.0 H Lymphocytes % (Manual) 3.0 L Atypical Lymphs % 2.0 H Monocytes % (Manual) 3.0 Neutrophils # (Manual) 20030 H RBC Morphology Not Reportable Anisocytosis 1+ H PT INR APTT ABG pH 7.35 ABG pCO2 69.6 H* ABG pO2 88 ABG HCO3 38 H ABG Total CO2 40 H ABG O2 Saturation 96 ABG Base Excess 12.0 H FiO2 50 Sodium Potassium Chloride Carbon Dioxide BUN Creatinine Estimated GFR BUN/Creatinine Ratio Glucose Lactate Calcium Phosphorus Magnesium Total Bilirubin AST ALT Alkaline Phosphatase Troponin I B-Natriuretic Peptide 442 H Total Protein Albumin Globulin Albumin/Globulin Ratio Lipase Procalcitonin Urine Color Urine Appearance Urine pH Ur Specific [place] Urine Protein Urine Glucose (UA) Urine Ketones Urine Occult Blood Urine Nitrate Urine Bilirubin Urine Urobilinogen Ur Leukocyte Esterase Urine RBC Urine WBC Amorphous Sediment Urine Bacteria Ur Culture Indicated? Nasal Screen MRSA (PCR) Ethyl Alcohol Ketones A. baumannii (PCR) Alexandra albicans (PCR) C. glabrata (PCR) C. krusei (PCR) C. parapsilosis (PCR) C. tropicalis (PCR) Enterobacteriac sp PCR E. cloacae complex PCR Enterococcus sp PCR E. coli (PCR) H. influenzae (PCR) Klebsiella oxytoca PCR Klebsiella pneumoniae List. monocytogenes PCR N. meningitidis (PCR) Proteus species (PCR) Serratia marcescens PCR Staphylococcus sp PCR Staph aureus (PCR) mecA-Methicil Res Gene Streptococcus sp PCR Group A Strep (PCR) Strep agalactiae (PCR) Strep pneumoniae (PCR) P. aeruginosa (PCR) Gretchen/B-Vanco Res Genes KPC-Carbap Res Gene PCR 05/27/18 05/27/18 05/27/18 05:37 06:16 11:15 WBC RBC Hgb Hct MCV MCH MCHC RDW Plt Count Neut % (Auto) Lymph % (Auto) [place] % (Auto) Eos % (Auto) Baso % (Auto) Neut # (Auto) Lymph # (Auto) [place] # (Auto) Eos # (Auto) Baso # (Auto) Total Counted Seg Neutrophils % Lymphocytes % (Manual) Atypical Lymphs % Monocytes % (Manual) Neutrophils # (Manual) RBC Morphology Anisocytosis PT INR APTT ABG pH 7.43 ABG pCO2 54.7 H ABG pO2 60 L ABG HCO3 37 H ABG Total CO2 38 H ABG O2 Saturation 91 L ABG Base Excess 12.0 H FiO2 35 Sodium 129 L Potassium 3.4 Chloride 85 L Carbon Dioxide 38 H BUN 14 Creatinine 0.60 Estimated GFR > 60.0 BUN/Creatinine Ratio 23.3 H Glucose 258 H Lactate Calcium 8.6 Phosphorus Magnesium Total Bilirubin AST ALT Alkaline Phosphatase Troponin I B-Natriuretic Peptide Total Protein Albumin Globulin Albumin/Globulin Ratio Lipase Procalcitonin Urine Color Urine Appearance Urine pH Ur Specific [place] Urine Protein Urine Glucose (UA) Urine Ketones Urine Occult Blood Urine Nitrate Urine Bilirubin Urine Urobilinogen Ur Leukocyte Esterase Urine RBC Urine WBC Amorphous Sediment Urine Bacteria Ur Culture Indicated? Nasal Screen MRSA (PCR) Ethyl Alcohol Ketones A. baumannii (PCR) Not detected Alexandra albicans (PCR) Not detected C. glabrata (PCR) Not detected C. krusei (PCR) Not detected C. parapsilosis (PCR) Not detected C. tropicalis (PCR) Not detected Enterobacteriac sp PCR Not detected E. cloacae complex PCR Not detected Enterococcus sp PCR Not detected E. coli (PCR) Not detected H. influenzae (PCR) Not detected Klebsiella oxytoca PCR Not detected Klebsiella pneumoniae Not detected List. monocytogenes PCR Not detected N. meningitidis (PCR) Not detected Proteus species (PCR) Not detected Serratia marcescens PCR Not detected Staphylococcus sp PCR Detected H Staph aureus (PCR) Detected H mecA-Methicil Res Gene Detected H Streptococcus sp PCR Not detected Group A Strep (PCR) Not detected Strep agalactiae (PCR) Not detected Strep pneumoniae (PCR) Not detected P. aeruginosa (PCR) Not detected Gretchen/B-Vanco Res Genes Not Reportable KPC-Carbap Res Gene PCR Not Reportable Assessment & Plan Plan: Assessment/Plan Narrative: Rocío Enriquez is a 57-year-old chronically ill female with multiple comorbidities including acute hypoxemic respiratory failure oxygen dependent, congestive heart failure, new onset of diabetes mellitus and a new diagnosis of left parietal frontal meningioma who presented for progressive worsening weakness and headache. She was found to have Staph aureus bacteremia in 4:4 bottles pending sensitivities in setting of positive MRSA screen possibly from previous IV during hospitalization at [facility]. 1. Acute on chronic hypoxemic and hypercarbic respiratory failure, present on admission. Active. -On BiPAP 12/5 with FiO2 35%. -Plan to recheck ABG in 2 hr and adjust accordingly. Continue to repeat ABG as needed to adjust NIPPV. -Treat underlying causes as below. 2. Acute Staphylococcus endocarditis with bacteremia, present on admission. Active. -Blood cultures positive for Staphylococcus aureus 4:4 bottles with sensitivities pending. MRSA screen positive. -Continue vancomycin with dosing per pharmacist and meropenem 2 g every 12 hr. Discussed antibiotic regimen with Dr. Jones of Infectious Disease who agrees. -Initial WBC 21.9 with procalcitonin 0.80. Continue to trend daily. -Continue IV fluids with NS at 100 mL/hr. -Will repeat blood cultures every day until negative. -Patient will need transthoracic echocardiogram and possibly transesophageal echocardiogram which will likely be technically difficult due to body habitus. 3. Acute Gram-negative bacilli UTI, present on admission. Active. -Recently cultured Klebsiella/Proteus. 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 -Continue vancomycin with dosing per pharmacist and meropenem 2 g every 12 hr as above. 4. New left frontoparietal lobe meningioma, present on admission. Active. -Recently hospitalized at [facility] in which was recommended she have outpatient neurosurgical evaluation. -Patient somnolent and mildly obtundent this morning. CT brain without contrast did not demonstrate any acute hemorrhage or worsening of meningioma. -If patient's status continues to acutely worsen despite correction of hypercarbia will consider stat CTA head and neck. -Continue Keppra 1000 mg twice daily. for seizure prophylaxis. 5. Generalized weakness, present on admission. Active. This weakness appears to be related to the pyelonephritis/possible urosepsis. Is expected to improve with antibiotics given IV. PT and OT may be needed. 6. Diabetes mellitus type 2, insulin using, present on admission. Stable. -Continue home NPH and Aspart correctional scale. 7. COPD, present on admission. Stable. -Does not remember present and acute COPD exacerbation. -Continue duo nebs. 8. CHF, not present on admission. Presumed stable. -Continue IV fluids at this time, transitioning to her home diuretics as indicated during this hospitalization or at discharge. -Despite the BNP of 442 and the nonspecific/inadequate chest x-ray she requires IV fluids at this time for infections including: Staphylococcus bacteremia and endocarditis and UTI. -Continue carvedilol and losartan. 9. Hypertension, present on admission. Active. -The patient at times will be acutely hypertensive and at other times hypotensive depending on blood pressure cuff placement and whether not the patient is actively flexing arm against cuff. -Carvedilol and losartan have been continued and will be assessed later today if appropriate as patient has Staph aureus in blood and can potentially become septic quite readily. 10. Morbid obesity, present on admission. Active. -BMI 52.2. -Plan to hiv counselor patient on lifestyle modification including diet and exercise. Disposition: Patient will be hospitalized for several more days for workup of staphylococcus endocarditis and improvement in overall mentation and acute on chronic respiratory failure. Quality VTE Deep Vein Thrombosis/Pulmonary Embolism Present on Admission: No
[2018-05-27] MEDS: MEROPENEM 2 GM in SODIUM CHLORIDE 0.9% 100 ML 200 ML IV ×2 (09:40→23:44)
[2018-05-27] MEDS: INSULIN ASPART 100 UNIT/ML INSULN PEN SUBCUT ×3 (09:44→18:13)
[2018-05-27] MEDS: INSULIN NPH 100 UNIT/ML VIAL 28 UNIT SUBCUT (09:45)
[2018-05-27] MEDS: ENOXAPARIN 40 MG/0.4 ML SYRINGE SUBCUT (09:49)
[2018-05-27] MEDS: ALBUTEROL/IPRATROPIUM 3 ML AMPUL INH ×6 (11:04→21:31)
[2018-05-27 11:24] LABS: HCO3 ABG 38 mmol/L (22-26); Oxygen Saturation ABG 98 % (95-100); PCO2 ABG 55.2 mmHg (35-45); PO2 ABG 97 mmHg (80-100); TCO2 ABG 40 mmol/L (21-31); pH ABG 7.45 (7.35-7.45)
[2018-05-27 11:25] LABS: Fractionated Inspired Oxygen 45
[2018-05-27] MEDS: levETIRAcetam 1,000 MG in SODIUM CHLORIDE 0.9% 100 ML 440 ML IV (12:15)
[2018-05-27] MEDS: VANCOMYCIN 1,000 MG/200 ML FROZ.PIGGY 200 MG IV ×2 (12:42→22:30)
[2018-05-27] MEDS: NYSTATIN POWDER 30 GM 1 APPLIC TOP (14:35)
[2018-05-27] MEDS: SODIUM CHLORIDE 0.9% 1,000 ML 100 ML IV (18:28)
--- NOTE | 2018-05-27 19:40 | PC.NURSE ---
Addendum entered by Leah Hammond R.N. 05/28/18 00:06: Assisted Dr. Campos and RT with intubation. Restraints initiated due to pt reaching for ETT. Called [facility] for sedation orders. Dr. Walker in to see pt and give update to luis eduardo Kemp. Dr. Campos has been asked to insert arterial line. RN and RT assisting with A-line insertion, but A-line not in as of 23:00. Original Note: Addendum entered by Leah Hammond R.N. 05/27/18 21:11: Called and spoke to daughter Viridiana to update on pt's declining status and need for transport to [facility]. Viridiana to be coming in to see pt. Original Note: gema note pt pulling off bipap mask, but is not talking except for mumbling. Pt opens eyes briefly to command, but does not keep them open. Lungs with inspiratory wheezes, then after nebulizer, scattered crackles. Per RT, pt is triggering the bipap breath 45% of the time, a decrease from 97%. Also, pt's tidal volumes are declining. Latest ABG shows results similar to first ABG done, when pt was alert/oriented and conversant. Pt now with hypertension, 194/96 and 188/[address] Walker to report these findings. New order for CT scan. Took pt to CT scan with cardiac and oxygen monitoring. RT at bedside to manage bipap. Dr. Walker in to see pt after return from CT scan. Pt will follow commands after noxious stimuli but does not stay awake. Pupils equally round and reactive, 7 mm.
--- NOTE | 2018-05-27 20:48 | P.DS_ITS ---
History of Present Illness Date Patient Seen: 05/27/18 Time Patient Seen: 19:02 Chief complaint: Back & Head Pain Narrative: History of Present Illness Date Patient Seen: 05/26/18 Chief complaint: Back & Head Pain Narrative: This is a 57-year-old chronically ill female with multiple comorbidities including hypoxia, oxygen dependent, congestive heart failure, new onset of diabetes mellitus and a new diagnosis of left parietal frontal meningioma. She was just here in the emergency department last week for altered mental status and on scanning was suspected to have a brain bleed. This was evaluated at [facility] and she was subsequently discharged without any intervention needed. Since getting home she has been steadily losing energy and has not been able to get out of bed for 2 days now. Her blood sugars have been above 250 and she has been experiencing pain with urination. Her speech is slowed down and become more difficult. She has no abdominal pain or flank pain. When seen here on May 23 she had a UA done and culture that grew Proteus and Klebsiella. She was placed on Macrobid but despite the organisms being pansensitive she has obviously worsened. Head CT done today shows no change in the newly diagnosed meningioma. I have known her for 22 years as her primary care physician in [place]. Discharge Providers Date of admission: Date Patient Seen: 05/27/18 Interval history: Rocío Enriquez is a 57-year-old chronically ill female with multiple comorbidities including acute hypoxemic respiratory failure oxygen dependent, congestive heart failure, new onset of diabetes mellitus and a new diagnosis of left parietal frontal meningioma who presented for progressive worsening weakness and headache. She was found to have Staph aureus bacteremia in 4:4 bottles pending sensitivities in setting of positive MRSA screen possibly from previous IV during hospitalization at [facility]. 05/27/2018 This morning the patient is increasingly obtunded and opens her eyes only to painful stimuli. She received a dose of Ativan early this morning for agitation. She is stable on BiPAP. Last ABG demonstrated hypoxemia and hypercarbia with repeat pending in 2 hr on BiPAP. 05/27/2018 Interval evaluation Patient with deepening cognitive decline, pupils midline sluggish with minimal response to sternal rub. Patient with decreasing effectiveness of BiPAP will contact anesthesia for intubation. Consults: 05/27/18 02:46 Consult to PICC Line RN Routine Comment: 05/27/2018 20:45 Discussed transfer with [facility] transfer center Nurse 05/27/2018 21.23 Spoke with l with Dr. Rea, Neurology at [facility], who declined the patient for neuro ICU and felt more appropriate for medical ICU with neuro consult. No bed is available for medical ICU. 05/27/2018 21:45 Intubation, oral ETT position confirmed clinically and by CXR 05/27/2018 22:[address] Macey José, [facility]. Review the patient's case and patient is accepted to neuro ICU. Discharge provider: ALVARADO Vazquez Discharge Date: 05/28/18 Summary Discharge Diagnosis: Rocío Enriquez is a 57-year-old chronically ill female with multiple comorbidities including acute hypoxemic respiratory failure oxygen dependent, congestive heart failure, new onset of diabetes mellitus and a new diagnosis of left parietal frontal meningioma who presented for progressive worsening weakness and headache. She was found to have Staph aureus bacteremia in 4:4 bottles pending sensitivities in setting of positive MRSA screen possibly from previous IV during hospitalization at [facility]. 1. Acute on chronic hypoxemic and hypercarbic respiratory failure, present on admission. Active. -On BiPAP 03/28 with FiO2 35%. -Plan to recheck ABG in 2 hr and adjust accordingly. Continue to repeat ABG as needed to adjust NIPPV. -Treat underlying causes as below. 2. Acute Staphylococcus endocarditis with bacteremia, present on admission. Active. -Blood cultures positive for Staphylococcus aureus 4:4 bottles with sensitivities pending. MRSA screen positive. -Continue vancomycin with dosing per pharmacist and meropenem 2 g every 12 hr. Discussed antibiotic regimen with Dr. Jones of Infectious Disease who agrees. -Initial WBC 21.9 with procalcitonin 0.80. Continue to trend daily. -Continue IV fluids with NS at 100 mL/hr. -Will repeat blood cultures every day until negative. -Patient will need transthoracic echocardiogram and possibly transesophageal echocardiogram which will likely be technically difficult due to body habitus. 3. Acute Gram-negative bacilli UTI, present on admission. Active. -Recently cultured Klebsiella/Proteus. 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 -Continue vancomycin with dosing per pharmacist and meropenem 2 g every 12 hr as above. 4. New left frontoparietal lobe meningioma, present on admission. Active. -Recently hospitalized at [facility] in which was recommended she have outpatient neurosurgical evaluation. -Patient somnolent and mildly obtundent this morning. CT brain without contrast did not demonstrate any acute hemorrhage or worsening of meningioma. -If patient's status continues to acutely worsen despite correction of hypercarbia will consider stat CTA head and neck. -Continue Keppra 1000 mg twice daily. for seizure prophylaxis. 5. Generalized weakness, present on admission. Active. This weakness appears to be related to the pyelonephritis/possible urosepsis. Is expected to improve with antibiotics given IV. PT and OT may be needed. 6. Diabetes mellitus type 2, insulin using, present on admission. Stable. -Continue home NPH and Aspart correctional scale. 7. COPD, present on admission. Stable. -Does not remember present and acute COPD exacerbation. -Continue duo nebs. -Manage endotracheal tube with ventilator support 8. CHF, not present on admission. Presumed stable. -Continue IV fluids at this time, transitioning to her home diuretics as indicated during this hospitalization or at discharge. -Despite the BNP of 442 and the nonspecific/inadequate chest x-ray she requires IV fluids at this time for infections including: Staphylococcus bacteremia and endocarditis and UTI. 9. hypertension, chronic, active -Carvedilol and losartan have not been discontinued due to impared mental status , patient's blood pressure is acceptable at time of evaluation this evening following intubation and propofol. -Will monitor closely, placing an arterial line as the patient has the potential to deteriorate quickly. 10. Morbid obesity, present on admission. Active. -BMI 52.2. -Plan to reimbursement counselor patient on lifestyle modification including diet and exercise. The patient is to be transferred for higher level care due to need for neurology to evaluate meningioma with perivascular edema and ventricular compression with midline shift, as well as Cardiology related to concern for staph bacteremia and evaluation for endocarditis. The patient has demonstrated declining status requiring intubation with high risk for cardiovascular instability. Disposition: Patient will be transferred to [facility] for higher level of care, Spoke with Dr. José who has agreed to accept. She requested Decadron 10 mg IV be administered which is done. Patient is awating transport. Exam Vital Signs (past 8 hours): - 05/27/18 13:00 05/27/18 14:00 05/27/18 14:15 Temperature 101.1 F H 98.9 F Pulse Rate 90 101 H Respiratory Rate 19 17 Blood Pressure 103/44 L 106/38 L 106/38 L Pulse Oximetry 96 94 05/27/18 14:27 05/27/18 15:00 05/27/18 16:00 Temperature 98.0 F Pulse Rate 94 H 96 H Respiratory Rate 25 H 24 Blood Pressure 165/88 H Pulse Oximetry 93 93 92 05/27/18 17:00 05/27/18 17:20 05/27/18 17:27 Temperature Pulse Rate 103 H 97 H Respiratory Rate 18 23 Blood Pressure 196/109 H 196/109 H Pulse Oximetry 91 90 L 05/27/18 18:00 05/27/18 19:26 05/27/18 20:10 Temperature Pulse Rate 92 H 96 H Respiratory Rate 19 22 Blood Pressure 192/89 H 188/95 H 202/83 H Pulse Oximetry 91 91 05/27/18 20:13 Temperature Pulse Rate 95 H Respiratory Rate 23 Blood Pressure 204/90 H Pulse Oximetry 91 Fraction of Inspired Oxygen 35 Oxygen Delivery Method BiPAP Oxygen Flow Rate 35 Objective Labs Result Diagrams: 05/27/18 05:37 05/27/18 05:37 Labs: Laboratory Results - last 24 hr 05/27/18 05/27/18 05/27/18 02:18 05:37 05:37 WBC 21.7 H RBC 3.92 L Hgb 10.7 L Hct 33.2 L MCV 84.6 MCH 27.4 MCHC 32.3 RDW 16.3 H Plt Count 230 Neut % (Auto) Not Reportable Lymph % (Auto) Not Reportable [facility] % (Auto) Not Reportable Eos % (Auto) Not Reportable Baso % (Auto) Not Reportable Lymph # (Auto) Not Reportable [facility] # (Auto) Not Reportable Baso # (Auto) Not Reportable Total Counted 100 Seg Neutrophils % 92.0 H Lymphocytes % (Manual) 3.0 L Atypical Lymphs % 2.0 H Monocytes % (Manual) 3.0 Neutrophils # (Manual) 63017 H RBC Morphology Not Reportable Anisocytosis 1+ H ABG pH 7.35 ABG pCO2 69.6 H* ABG pO2 88 ABG HCO3 38 H ABG Total CO2 40 H ABG O2 Saturation 96 ABG Base Excess 12.0 H FiO2 50 Sodium 129 L Potassium 3.4 Chloride 85 L Carbon Dioxide 38 H BUN 14 Creatinine 0.60 Estimated GFR > 60.0 BUN/Creatinine Ratio 23.3 H Glucose 258 H Calcium 8.6 A. baumannii (PCR) Alexandra albicans (PCR) C. glabrata (PCR) C. krusei (PCR) C. parapsilosis (PCR) C. tropicalis (PCR) Enterobacteriac sp PCR E. cloacae complex PCR Enterococcus sp PCR E. coli (PCR) H. influenzae (PCR) Klebsiella oxytoca PCR Klebsiella pneumoniae List. monocytogenes PCR N. meningitidis (PCR) Proteus species (PCR) Serratia marcescens PCR Staphylococcus sp PCR Staph aureus (PCR) mecA-Methicil Res Gene Streptococcus sp PCR Group A Strep (PCR) Strep agalactiae (PCR) Strep pneumoniae (PCR) P. aeruginosa (PCR) Gretchen/B-Vanco Res Genes KPC-Carbap Res Gene PCR 05/27/18 05/27/18 05/27/18 06:16 10:46 11:15 WBC RBC Hgb Hct MCV MCH MCHC RDW Plt Count Neut % (Auto) Lymph % (Auto) [facility] % (Auto) Eos % (Auto) Baso % (Auto) Lymph # (Auto) [facility] # (Auto) Baso # (Auto) Total Counted Seg Neutrophils % Lymphocytes % (Manual) Atypical Lymphs % Monocytes % (Manual) Neutrophils # (Manual) RBC Morphology Anisocytosis ABG pH 7.43 7.45 ABG pCO2 54.7 H 55.2 H ABG pO2 60 L 97 ABG HCO3 37 H 38 H ABG Total CO2 38 H 40 H ABG O2 Saturation 91 L 98 ABG Base Excess 12.0 H 14.0 H FiO2 35 45 Sodium Potassium Chloride Carbon Dioxide BUN Creatinine Estimated GFR BUN/Creatinine Ratio Glucose Calcium A. baumannii (PCR) Not detected Alexandra albicans (PCR) Not detected C. glabrata (PCR) Not detected C. krusei (PCR) Not detected C. parapsilosis (PCR) Not detected C. tropicalis (PCR) Not detected Enterobacteriac sp PCR Not detected E. cloacae complex PCR Not detected Enterococcus sp PCR Not detected E. coli (PCR) Not detected H. influenzae (PCR) Not detected Klebsiella oxytoca PCR Not detected Klebsiella pneumoniae Not detected List. monocytogenes PCR Not detected N. meningitidis (PCR) Not detected Proteus species (PCR) Not detected Serratia marcescens PCR Not detected Staphylococcus sp PCR Detected H Staph aureus (PCR) Detected H mecA-Methicil Res Gene Detected H Streptococcus sp PCR Not detected Group A Strep (PCR) Not detected Strep agalactiae (PCR) Not detected Strep pneumoniae (PCR) Not detected P. aeruginosa (PCR) Not detected Gretchen/B-Vanco Res Genes Not Reportable KPC-Carbap Res Gene PCR Not Reportable [address] [address] [address] Scan Report Signed Patient: Rocío Enriquez MR#: [id number] : 1960 Acct:[id number] Age/Sex: 57 / F Date of Service: 05/27/18 Loc: ICU 105-1 Accession Number: [id number] Procedure: CT angio head and neck Ordering Provider: Jenny Walker D.O. PROCEDURE: CT ANGIO HEAD AND NECK INDICATIONS: poss CVA, decreased LOC TECHNIQUE: Pre-contrast 4.5 mm thick sections acquired from the foramen magnum to the vertex. After the administration of intravenous contrast, 1 mm thick sections acquired from the aortic arch through the [place]. Post-contrast 4.5 mm thick sections then re- acquired from the foramen magnum to the vertex. 3-dimensional maximum-intensity- projection (MIP) and/or volume rendering reformats were acquired of the central intracranial vasculature and neck separately. COMPARISON: [facility], CT, CT HEAD/BRAIN WO CON, 04/22/2018, 12:13. [facility], CR, XR CHEST 1V, 05/26/2018, 11:06. [facility], CT, CT ANGIO CHEST ABDOMEN PELVIS, 05/23/2018, 15:39. [facility], CR, XR CHEST 1V, 05/27/2018, 7:53. [facility], CT, CT HEAD/BRAIN WO CON, 05/26/2018, 11:31. FINDINGS: Image quality: Quality of visualization is limited by patient motion during image acquisition. BRAIN: CSF spaces: Ventricles are stable in size and shape, mildly distorted on the left by a large homogeneous high density mass which appears to enhance, likely a meningioma, with adjacent mild vasogenic edema previously described. Basal cisterns are patent. No extra-axial fluid collections. Brain: No midline shift. No intracranial bleeds or masses. East-white matter interface appears intact. Skull and face: Calvarium and facial bones appear intact, without suspicious lesions. Orbits appear normal. Sinuses: Sinuses and mastoids are clear. HEAD CT ANGIOGRAPHY: Anterior circulation: Intracranial internal carotid arteries are normal in size and flow. The flow within the paired anterior cerebral arteries is normal and symmetric. The flow within the middle cerebral arteries is normal and symmetric. The anterior communicating artery is seen. No aneurysms are seen. Posterior circulation: Visualized portions of the vertebral arteries demonstrate normal caliber, and join to form a normal appearing basilar artery. Flow within the posterior cerebral arteries is normal and symmetric. No aneurysms are seen. NECK CT ANGIOGRAPHY: Carotid system: The great vessels demonstrate a conventional anatomy as they arise from the aortic arch. The origins of the common carotid arteries appear patent. The common carotid arteries demonstrate normal caliber and courses. The bifurcation regions are both widely patent. The internal carotid arteries demonstrate normal calibers and courses. Posterior circulation: The origins of the vertebral arteries both appear widely patent. The more superior extracranial portions of both vertebral arteries also demonstrate normal courses and calibers. They join to form a normal appearing basilar artery. Soft tissues: Visualized neck soft tissues demonstrate no suspicious abnormalities. Note is made of significant interval worsening of airspace disease, right greater than left, with lobulated areas of confluent lateral and posterior airspace consolidation, including extending to abut the right margin of the mediastinum. Bones: No suspicious bony lesions. Visualized cervical spine appears normally aligned. IMPRESSION: Quality of visualization is significantly limited by patient motion during image acquisition. No definite embolic disease is found. No aneurysm or dissection is suspected. Large previously described presumed left hemispheric meningioma, measuring up to 3.5 by 3.7 cm in maximal dimension, AP and craniocaudad respectively. This has adjacent vasogenic edema and produces mass effect distorting the left lateral ventricle, mildly compressing it rightward. Neurosurgical consultation is recommended. Worsening airspace disease bilaterally, with dense lobulated pulmonary consolidation now present at the partially visualized right mid and upper lung. The quality of visualization is limited by patient motion but it is possible that there is a component of pulmonary infarction intermixed with pneumonia. Heterogeneous areas of low attenuation are seen within the consolidated lung parenchyma but motion during image acquisition can produce such a heterogeneous appearance. Any quantitative measurements of stenosis were performed using NASCET criteria. Dictated by: Xander Hopkins M.D. on 05/27/2018 at 19:44 Approved by: Xander Hopkins M.D. on 05/27/2018 at 19:57 Discharge Plan Discharge Plan Patient Disposition: [facility] Other facility: [facility], Neuro Intensive Care Unit Under care of provider: Dr. Macye José Discharge comment: Transfer by Critical Care Transport Discharge Med Rec/Prescriptions Prescriptions: Discontinued acetaminophen 325 MG tablet 650 mg PO Q4H PRN (Reason: Fever Or Pain) Qty: 0 RF: 0 carvedilol [Coreg] 25 MG tablet 25 mg PO BID Qty: 60 RF: 0 fluticasone [Flovent Diskus] 100 MCG blister with device 100 mcg INH BID Qty: 0 RF: 0 salmeterol [Serevent Diskus] 50 MCG blister with device 2 puff INH BIDRT 30 Days Qty: 0 RF: 0 albuterol sulfate [Proventil HFA] 90 MCG/PUFF HFA aerosol inhaler 1 puff INH Q4HP PRN (Reason: Wheezing) RF: 0 losartan 100 mg tablet 100 mg PO DAILY RF: 0 dexamethasone 2 mg tablet 2 mg PO BID RF: 0 nystatin [Nyamyc] 100,000 unit/gram powder 1 applic Topical TID PRN (Reason: wound care) RF: 0 levetiracetam 1,000 mg tablet 1,000 mg PO BID RF: 0 amlodipine [Norvasc] 5 MG tablet 5 mg PO DAILY RF: 0 glucose 4 gram Tablet,Chewable 16 g PO .ONCE PRN (Reason: low blood sugar) RF: 0 insulin lispro [Humalog KwikPen Insulin] 100 unit/mL Insulin Pen 18 units subcut TIDWM RF: 0 insulin lispro [Humalog KwikPen Insulin] 100 unit/mL Insulin Pen 1 dose subcut BEDTIME RF: 0 insulin NPH isoph U-100 human 100 unit/mL (3 mL) Insulin Pen 28 unit SUBCUT QAM RF: 0 insulin NPH isoph U-100 human 100 unit/mL (3 mL) Insulin Pen 20 units SUBCUT QPM RF: 0 hydrocodone-acetaminophen [[place]] 5-325 mg tablet 1 tab PO Q4-6H PRN (Reason: pain) Qty: 10 RF: 0 nitrofurantoin monohyd/m-cryst [Macrobid] 100 mg capsule 100 mg PO BID Qty: 14 RF: 0 Discharge Health Status Brief summary of current health status: Sedated on ventilator for respiratory failure Bacteremia on Meropenem and Vancomycin Multidrug resistant organism: MRSA MDRO Verified by culture: Yes Date verified: 05/27/18 Precautions: Contact Provider Discharge Instructions Diet: Nothing by Mouth Diet comment: NPO Oxygen: Ventilator support Other treatments: DuoNeb Q4H PRN Discharge Data Attending Provider: Nato Lin Admit Date/Time: 05/26/18 13:01 Quality VTE Deep Vein Thrombosis/Pulmonary Embolism Present on Admission: No
--- NOTE | 2018-05-27 21:48 | DI.RAD.S_ITS ---
PROCEDURE: XR CHEST 1V INDICATIONS: ETT placement TECHNIQUE: One view of the chest was acquired. COMPARISON: [facility], CR, XR CHEST 1V, 05/26/2018, 11:06. [facility], CR, XR CHEST 1V, 05/27/2018, 7:53. FINDINGS: Endotracheal tube with the tip projecting approximately 3 cm above the vikash. Left PICC line with the tip projecting at the mid to lower SVC. Multiple perihilar and right midlung, retrocardiac opacities appear progressed since the prior studies dated 05/26 and 05/27/18. No pneumothorax. No definite pleural effusion seen.There are low lung volumes as before. Mediastinum: Cardiac silhouette and mediastinal contours are stable. Bones and chest wall: No suspicious bony lesions. Overlying soft tissues appear unremarkable. IMPRESSION: Endotracheal tube with the tip approximately 3 cm above the vikash. Worsening multifocal pneumonia and/or aspiration. Dictated by: Grupo Vences M.D. on 05/28/2018 at 7:42 Approved by: Grupo Vences M.D. on 05/28/2018 at 7:44
--- NOTE | 2018-05-27 22:14 | P.PN_ITS ---
Subjective Date Patient Seen: 05/27/18 Time Patient Seen: 22:03 Interval history: Moribund, not responding to pain, pco2 55, ph 7.45, po2 97, FIO2 about .45, bipap in place, meningioma, sepsis, condition deteriorating, asked to intubate to manage transfer/respiratory failure. Pt sedated with 200 mg propofol. Paralyzed with 100 mg sux. Intubated without difficulty with 7.5 mm ETT. Stylet. + CO2. Began ventilation at 20 with TV 500. CXR show good position ETT. ABG ordered. Will try to keep pco2 around 35 -40. Exam Vital Signs (past 8 hours): - 05/27/18 14:15 05/27/18 14:27 05/27/18 15:00 Temperature Pulse Rate 94 H Respiratory Rate 25 H Blood Pressure 106/38 L Pulse Oximetry 93 93 05/27/18 16:00 05/27/18 17:00 05/27/18 17:20 Temperature 98.0 F Pulse Rate 96 H 103 H 97 H Respiratory Rate 24 18 23 Blood Pressure 165/88 H 196/109 H Pulse Oximetry 92 91 90 L 05/27/18 17:27 05/27/18 18:00 05/27/18 19:26 Temperature Pulse Rate 90 Respiratory Rate 25 H Blood Pressure 196/109 H 188/95 H 188/95 H Pulse Oximetry 91 05/27/18 20:10 05/27/18 20:13 05/27/18 21:00 Temperature 97.8 F Pulse Rate 96 H 95 H 92 H Respiratory Rate 22 23 20 Blood Pressure 202/83 H 204/90 H 194/94 H Pulse Oximetry 90 L 91 91 05/27/18 21:20 05/27/18 21:33 Temperature Pulse Rate 89 Respiratory Rate 18 Blood Pressure 189/87 H 189/87 H Pulse Oximetry 93 Fraction of Inspired Oxygen 0.38 Oxygen Delivery Method BiPAP Oxygen Flow Rate 35 Objective Labs Result Diagrams: 05/27/18 05:37 05/27/18 05:37 Labs: Laboratory Results - last 24 hr 05/27/18 05/27/18 05/27/18 02:18 05:37 05:37 WBC 21.7 H RBC 3.92 L Hgb 10.7 L Hct 33.2 L MCV 84.6 MCH 27.4 MCHC 32.3 RDW 16.3 H Plt Count 230 Neut % (Auto) Not Reportable Lymph % (Auto) Not Reportable [place] % (Auto) Not Reportable Eos % (Auto) Not Reportable Baso % (Auto) Not Reportable Lymph # (Auto) Not Reportable [place] # (Auto) Not Reportable Baso # (Auto) Not Reportable Total Counted 100 Seg Neutrophils % 92.0 H Lymphocytes % (Manual) 3.0 L Atypical Lymphs % 2.0 H Monocytes % (Manual) 3.0 Neutrophils # (Manual) 54819 H RBC Morphology Not Reportable Anisocytosis 1+ H ABG pH 7.35 ABG pCO2 69.6 H* ABG pO2 88 ABG HCO3 38 H ABG Total CO2 40 H ABG O2 Saturation 96 ABG Base Excess 12.0 H FiO2 50 Sodium 129 L Potassium 3.4 Chloride 85 L Carbon Dioxide 38 H BUN 14 Creatinine 0.60 Estimated GFR > 60.0 BUN/Creatinine Ratio 23.3 H Glucose 258 H Calcium 8.6 A. baumannii (PCR) Alexandra albicans (PCR) C. glabrata (PCR) C. krusei (PCR) C. parapsilosis (PCR) C. tropicalis (PCR) Enterobacteriac sp PCR E. cloacae complex PCR Enterococcus sp PCR E. coli (PCR) H. influenzae (PCR) Klebsiella oxytoca PCR Klebsiella pneumoniae List. monocytogenes PCR N. meningitidis (PCR) Proteus species (PCR) Serratia marcescens PCR Staphylococcus sp PCR Staph aureus (PCR) mecA-Methicil Res Gene Streptococcus sp PCR Group A Strep (PCR) Strep agalactiae (PCR) Strep pneumoniae (PCR) P. aeruginosa (PCR) Gretchen/B-Vanco Res Genes KPC-Carbap Res Gene PCR 05/27/18 05/27/18 05/27/18 06:16 10:46 11:15 WBC RBC Hgb Hct MCV MCH MCHC RDW Plt Count Neut % (Auto) Lymph % (Auto) [place] % (Auto) Eos % (Auto) Baso % (Auto) Lymph # (Auto) [place] # (Auto) Baso # (Auto) Total Counted Seg Neutrophils % Lymphocytes % (Manual) Atypical Lymphs % Monocytes % (Manual) Neutrophils # (Manual) RBC Morphology Anisocytosis ABG pH 7.43 7.45 ABG pCO2 54.7 H 55.2 H ABG pO2 60 L 97 ABG HCO3 37 H 38 H ABG Total CO2 38 H 40 H ABG O2 Saturation 91 L 98 ABG Base Excess 12.0 H 14.0 H FiO2 35 45 Sodium Potassium Chloride Carbon Dioxide BUN Creatinine Estimated GFR BUN/Creatinine Ratio Glucose Calcium A. baumannii (PCR) Not detected Alexandra albicans (PCR) Not detected C. glabrata (PCR) Not detected C. krusei (PCR) Not detected C. parapsilosis (PCR) Not detected C. tropicalis (PCR) Not detected Enterobacteriac sp PCR Not detected E. cloacae complex PCR Not detected Enterococcus sp PCR Not detected E. coli (PCR) Not detected H. influenzae (PCR) Not detected Klebsiella oxytoca PCR Not detected Klebsiella pneumoniae Not detected List. monocytogenes PCR Not detected N. meningitidis (PCR) Not detected Proteus species (PCR) Not detected Serratia marcescens PCR Not detected Staphylococcus sp PCR Detected H Staph aureus (PCR) Detected H mecA-Methicil Res Gene Detected H Streptococcus sp PCR Not detected Group A Strep (PCR) Not detected Strep agalactiae (PCR) Not detected Strep pneumoniae (PCR) Not detected P. aeruginosa (PCR) Not detected Gretchen/B-Vanco Res Genes Not Reportable KPC-Carbap Res Gene PCR Not Reportable Quality VTE Deep Vein Thrombosis/Pulmonary Embolism Present on Admission: No
[2018-05-27] MEDS: CARVEDILOL 25 MG TABLET PO (22:29)
[2018-05-27] MEDS: PROPOFOL 1,000 MG/100 ML VIAL 15.54 MG IV (23:03)
[2018-05-27 23:04] LABS: Procalcitonin 1.03 ng/mL (<0.5)
[2018-05-27] MEDS: SUCCINYLCHOLINE 200 MG/10 ML VIAL 100 MG IV (23:10)
[2018-05-27] MEDS: PROPOFOL 200 MG/20 ML VIAL IV (23:11)
[2018-05-28 00:17] VITALS: PULSE 79; RESP 20; O2SAT 97
[2018-05-28 00:20] VITALS: PULSE 79; RESP 20; O2SAT 97
--- NOTE | 2018-05-28 00:45 | P.PN_ITS ---
Exam Vital Signs (past 8 hours): - 05/27/18 17:00 05/27/18 17:03 05/27/18 17:20 Temperature Pulse Rate 103 H 97 H Respiratory Rate 18 23 Blood Pressure 196/109 H Pulse Oximetry 91 92 90 L 05/27/18 17:27 05/27/18 18:00 05/27/18 19:26 Temperature Pulse Rate 90 Respiratory Rate 25 H Blood Pressure 196/109 H 188/95 H 188/95 H Pulse Oximetry 91 05/27/18 20:10 05/27/18 20:13 05/27/18 21:00 Temperature 97.8 F Pulse Rate 96 H 95 H 92 H Respiratory Rate 22 23 20 Blood Pressure 202/83 H 204/90 H 194/94 H Pulse Oximetry 90 L 91 91 05/27/18 21:20 05/27/18 21:33 05/27/18 21:45 Temperature Pulse Rate 89 67 Respiratory Rate 18 20 Blood Pressure 189/87 H 189/87 H 114/51 L Pulse Oximetry 93 97 05/27/18 22:30 05/27/18 23:00 05/28/18 00:20 Temperature Pulse Rate 78 80 79 Respiratory Rate 20 20 20 Blood Pressure 132/64 154/62 H Pulse Oximetry 96 96 Fraction of Inspired Oxygen 0.38 Oxygen Delivery Method Mechanical Ventilation Oxygen Flow Rate 50 Objective Labs Result Diagrams: 05/27/18 05:37 05/27/18 05:37 Labs: Laboratory Results - last 24 hr 05/27/18 05/27/18 05/27/18 02:18 05:37 05:37 WBC 21.7 H RBC 3.92 L Hgb 10.7 L Hct 33.2 L MCV 84.6 MCH 27.4 MCHC 32.3 RDW 16.3 H Plt Count 230 Neut % (Auto) Not Reportable Lymph % (Auto) Not Reportable [place] % (Auto) Not Reportable Eos % (Auto) Not Reportable Baso % (Auto) Not Reportable Lymph # (Auto) Not Reportable [place] # (Auto) Not Reportable Baso # (Auto) Not Reportable Total Counted 100 Seg Neutrophils % 92.0 H Lymphocytes % (Manual) 3.0 L Atypical Lymphs % 2.0 H Monocytes % (Manual) 3.0 Neutrophils # (Manual) 65034 H RBC Morphology Not Reportable Anisocytosis 1+ H ABG pH 7.35 ABG pCO2 69.6 H* ABG pO2 88 ABG HCO3 38 H ABG Total CO2 40 H ABG O2 Saturation 96 ABG Base Excess 12.0 H FiO2 50 Sodium 129 L Potassium 3.4 Chloride 85 L Carbon Dioxide 38 H BUN 14 Creatinine 0.60 Estimated GFR > 60.0 BUN/Creatinine Ratio 23.3 H Glucose 258 H Calcium 8.6 Procalcitonin A. baumannii (PCR) Alexandra albicans (PCR) C. glabrata (PCR) C. krusei (PCR) C. parapsilosis (PCR) C. tropicalis (PCR) Enterobacteriac sp PCR E. cloacae complex PCR Enterococcus sp PCR E. coli (PCR) H. influenzae (PCR) Klebsiella oxytoca PCR Klebsiella pneumoniae List. monocytogenes PCR N. meningitidis (PCR) Proteus species (PCR) Serratia marcescens PCR Staphylococcus sp PCR Staph aureus (PCR) mecA-Methicil Res Gene Streptococcus sp PCR Group A Strep (PCR) Strep agalactiae (PCR) Strep pneumoniae (PCR) P. aeruginosa (PCR) Gretchen/B-Vanco Res Genes KPC-Carbap Res Gene PCR 05/27/18 05/27/18 05/27/18 06:16 10:46 11:15 WBC RBC Hgb Hct MCV MCH MCHC RDW Plt Count Neut % (Auto) Lymph % (Auto) [place] % (Auto) Eos % (Auto) Baso % (Auto) Lymph # (Auto) [place] # (Auto) Baso # (Auto) Total Counted Seg Neutrophils % Lymphocytes % (Manual) Atypical Lymphs % Monocytes % (Manual) Neutrophils # (Manual) RBC Morphology Anisocytosis ABG pH 7.43 7.45 ABG pCO2 54.7 H 55.2 H ABG pO2 60 L 97 ABG HCO3 37 H 38 H ABG Total CO2 38 H 40 H ABG O2 Saturation 91 L 98 ABG Base Excess 12.0 H 14.0 H FiO2 35 45 Sodium Potassium Chloride Carbon Dioxide BUN Creatinine Estimated GFR BUN/Creatinine Ratio Glucose Calcium Procalcitonin A. baumannii (PCR) Not detected Alexandra albicans (PCR) Not detected C. glabrata (PCR) Not detected C. krusei (PCR) Not detected C. parapsilosis (PCR) Not detected C. tropicalis (PCR) Not detected Enterobacteriac sp PCR Not detected E. cloacae complex PCR Not detected Enterococcus sp PCR Not detected E. coli (PCR) Not detected H. influenzae (PCR) Not detected Klebsiella oxytoca PCR Not detected Klebsiella pneumoniae Not detected List. monocytogenes PCR Not detected N. meningitidis (PCR) Not detected Proteus species (PCR) Not detected Serratia marcescens PCR Not detected Staphylococcus sp PCR Detected H Staph aureus (PCR) Detected H mecA-Methicil Res Gene Detected H Streptococcus sp PCR Not detected Group A Strep (PCR) Not detected Strep agalactiae (PCR) Not detected Strep pneumoniae (PCR) Not detected P. aeruginosa (PCR) Not detected Gretchen/B-Vanco Res Genes Not Reportable KPC-Carbap Res Gene PCR Not Reportable 05/27/18 22:10 WBC RBC Hgb Hct MCV MCH MCHC RDW Plt Count Neut % (Auto) Lymph % (Auto) [place] % (Auto) Eos % (Auto) Baso % (Auto) Lymph # (Auto) [place] # (Auto) Baso # (Auto) Total Counted Seg Neutrophils % Lymphocytes % (Manual) Atypical Lymphs % Monocytes % (Manual) Neutrophils # (Manual) RBC Morphology Anisocytosis ABG pH ABG pCO2 ABG pO2 ABG HCO3 ABG Total CO2 ABG O2 Saturation ABG Base Excess FiO2 Sodium Potassium Chloride Carbon Dioxide BUN Creatinine Estimated GFR BUN/Creatinine Ratio Glucose Calcium Procalcitonin 1.03 H A. baumannii (PCR) Alexandra albicans (PCR) C. glabrata (PCR) C. krusei (PCR) C. parapsilosis (PCR) C. tropicalis (PCR) Enterobacteriac sp PCR E. cloacae complex PCR Enterococcus sp PCR E. coli (PCR) H. influenzae (PCR) Klebsiella oxytoca PCR Klebsiella pneumoniae List. monocytogenes PCR N. meningitidis (PCR) Proteus species (PCR) Serratia marcescens PCR Staphylococcus sp PCR Staph aureus (PCR) mecA-Methicil Res Gene Streptococcus sp PCR Group A Strep (PCR) Strep agalactiae (PCR) Strep pneumoniae (PCR) P. aeruginosa (PCR) Gretchen/B-Vanco Res Genes KPC-Carbap Res Gene PCR Assessment & Plan Plan: Assessment/Plan Narrative: Asked to start arterial line for monitoring abg's and blood pressures. Multiple attempts on both right and left radial arteries, and right brachial artery, with ultrasound guidance, but unable to pass wire into artery. Good visualization on right. Small radial artery on left. Quality VTE Deep Vein Thrombosis/Pulmonary Embolism Present on Admission: No
--- NOTE | 2018-05-28 00:50 | PM.PN.1 ---
Exam Vital Signs (past 8 hours): - 05/27/18 17:00 05/27/18 17:03 05/27/18 17:20 Temperature Pulse Rate 103 H 97 H Respiratory Rate 18 23 Blood Pressure 196/109 H Pulse Oximetry 91 92 90 L 05/27/18 17:27 05/27/18 18:00 05/27/18 19:26 Temperature Pulse Rate 90 Respiratory Rate 25 H Blood Pressure 196/109 H 188/95 H 188/95 H Pulse Oximetry 91 05/27/18 20:10 05/27/18 20:13 05/27/18 21:00 Temperature 97.8 F Pulse Rate 96 H 95 H 92 H Respiratory Rate 22 23 20 Blood Pressure 202/83 H 204/90 H 194/94 H Pulse Oximetry 90 L 91 91 05/27/18 21:20 05/27/18 21:33 05/27/18 21:45 Temperature Pulse Rate 89 67 Respiratory Rate 18 20 Blood Pressure 189/87 H 189/87 H 114/51 L Pulse Oximetry 93 97 05/27/18 22:30 05/27/18 23:00 05/28/18 00:20 Temperature Pulse Rate 78 80 79 Respiratory Rate 20 20 20 Blood Pressure 132/64 154/62 H Pulse Oximetry 96 96 Fraction of Inspired Oxygen 0.38 Oxygen Delivery Method Mechanical Ventilation Oxygen Flow Rate 50 Objective Labs Result Diagrams: 05/27/18 05:37 05/27/18 05:37 Labs: Laboratory Results - last 24 hr 05/27/18 05/27/18 05/27/18 02:18 05:37 05:37 WBC 21.7 H RBC 3.92 L Hgb 10.7 L Hct 33.2 L MCV 84.6 MCH 27.4 MCHC 32.3 RDW 16.3 H Plt Count 230 Neut % (Auto) Not Reportable Lymph % (Auto) Not Reportable [place] % (Auto) Not Reportable Eos % (Auto) Not Reportable Baso % (Auto) Not Reportable Lymph # (Auto) Not Reportable [place] # (Auto) Not Reportable Baso # (Auto) Not Reportable Total Counted 100 Seg Neutrophils % 92.0 H Lymphocytes % (Manual) 3.0 L Atypical Lymphs % 2.0 H Monocytes % (Manual) 3.0 Neutrophils # (Manual) 93020 H RBC Morphology Not Reportable Anisocytosis 1+ H ABG pH 7.35 ABG pCO2 69.6 H* ABG pO2 88 ABG HCO3 38 H ABG Total CO2 40 H ABG O2 Saturation 96 ABG Base Excess 12.0 H FiO2 50 Sodium 129 L Potassium 3.4 Chloride 85 L Carbon Dioxide 38 H BUN 14 Creatinine 0.60 Estimated GFR > 60.0 BUN/Creatinine Ratio 23.3 H Glucose 258 H Calcium 8.6 Procalcitonin A. baumannii (PCR) Alexandra albicans (PCR) C. glabrata (PCR) C. krusei (PCR) C. parapsilosis (PCR) C. tropicalis (PCR) Enterobacteriac sp PCR E. cloacae complex PCR Enterococcus sp PCR E. coli (PCR) H. influenzae (PCR) Klebsiella oxytoca PCR Klebsiella pneumoniae List. monocytogenes PCR N. meningitidis (PCR) Proteus species (PCR) Serratia marcescens PCR Staphylococcus sp PCR Staph aureus (PCR) mecA-Methicil Res Gene Streptococcus sp PCR Group A Strep (PCR) Strep agalactiae (PCR) Strep pneumoniae (PCR) P. aeruginosa (PCR) Gretchen/B-Vanco Res Genes KPC-Carbap Res Gene PCR 05/27/18 05/27/18 05/27/18 06:16 10:46 11:15 WBC RBC Hgb Hct MCV MCH MCHC RDW Plt Count Neut % (Auto) Lymph % (Auto) [place] % (Auto) Eos % (Auto) Baso % (Auto) Lymph # (Auto) [place] # (Auto) Baso # (Auto) Total Counted Seg Neutrophils % Lymphocytes % (Manual) Atypical Lymphs % Monocytes % (Manual) Neutrophils # (Manual) RBC Morphology Anisocytosis ABG pH 7.43 7.45 ABG pCO2 54.7 H 55.2 H ABG pO2 60 L 97 ABG HCO3 37 H 38 H ABG Total CO2 38 H 40 H ABG O2 Saturation 91 L 98 ABG Base Excess 12.0 H 14.0 H FiO2 35 45 Sodium Potassium Chloride Carbon Dioxide BUN Creatinine Estimated GFR BUN/Creatinine Ratio Glucose Calcium Procalcitonin A. baumannii (PCR) Not detected Alexandra albicans (PCR) Not detected C. glabrata (PCR) Not detected C. krusei (PCR) Not detected C. parapsilosis (PCR) Not detected C. tropicalis (PCR) Not detected Enterobacteriac sp PCR Not detected E. cloacae complex PCR Not detected Enterococcus sp PCR Not detected E. coli (PCR) Not detected H. influenzae (PCR) Not detected Klebsiella oxytoca PCR Not detected Klebsiella pneumoniae Not detected List. monocytogenes PCR Not detected N. meningitidis (PCR) Not detected Proteus species (PCR) Not detected Serratia marcescens PCR Not detected Staphylococcus sp PCR Detected H Staph aureus (PCR) Detected H mecA-Methicil Res Gene Detected H Streptococcus sp PCR Not detected Group A Strep (PCR) Not detected Strep agalactiae (PCR) Not detected Strep pneumoniae (PCR) Not detected P. aeruginosa (PCR) Not detected Gretchen/B-Vanco Res Genes Not Reportable KPC-Carbap Res Gene PCR Not Reportable 05/27/18 22:10 WBC RBC Hgb Hct MCV MCH MCHC RDW Plt Count Neut % (Auto) Lymph % (Auto) [place] % (Auto) Eos % (Auto) Baso % (Auto) Lymph # (Auto) [place] # (Auto) Baso # (Auto) Total Counted Seg Neutrophils % Lymphocytes % (Manual) Atypical Lymphs % Monocytes % (Manual) Neutrophils # (Manual) RBC Morphology Anisocytosis ABG pH ABG pCO2 ABG pO2 ABG HCO3 ABG Total CO2 ABG O2 Saturation ABG Base Excess FiO2 Sodium Potassium Chloride Carbon Dioxide BUN Creatinine Estimated GFR BUN/Creatinine Ratio Glucose Calcium Procalcitonin 1.03 H A. baumannii (PCR) Alexandra albicans (PCR) C. glabrata (PCR) C. krusei (PCR) C. parapsilosis (PCR) C. tropicalis (PCR) Enterobacteriac sp PCR E. cloacae complex PCR Enterococcus sp PCR E. coli (PCR) H. influenzae (PCR) Klebsiella oxytoca PCR Klebsiella pneumoniae List. monocytogenes PCR N. meningitidis (PCR) Proteus species (PCR) Serratia marcescens PCR Staphylococcus sp PCR Staph aureus (PCR) mecA-Methicil Res Gene Streptococcus sp PCR Group A Strep (PCR) Strep agalactiae (PCR) Strep pneumoniae (PCR) P. aeruginosa (PCR) Gretchen/B-Vanco Res Genes KPC-Carbap Res Gene PCR Quality VTE Deep Vein Thrombosis/Pulmonary Embolism Present on Admission: No
[2018-05-28 00:51] VITALS: BP 137/78; PULSE 86; RESP 20; TEMP 35.9; O2SAT 94
[2018-05-28] MEDS: DEXAMETHASONE 10 MG/ML VIAL IV (00:54)
[2018-05-28] MEDS: levETIRAcetam 1,000 MG in SODIUM CHLORIDE 0.9% 100 ML 440 ML IV (01:00)
[2018-05-28 01:30] VITALS: PULSE 82; RESP 20; O2SAT 96
[2018-05-28 02:52] VITALS: BP 171/69; PULSE 79; RESP 20; TEMP 36.7; O2SAT 95
[2018-05-28] MEDS: VANCOMYCIN 1,000 MG/200 ML FROZ.PIGGY 200 MG IV (03:16)
[2018-05-28] MEDS: VANCOMYCIN TROUGH 1 REQUEST MISC (03:17)
[2018-05-28] MEDS: PROPOFOL 1,000 MG/100 ML VIAL 15.54 MG IV (03:25)
[2018-05-28 03:37] LABS: Vancomycin Trough 17.1 ug/mL (10-20)
[2018-05-28 04:15] LABS: HCO3 VBG 37 mmol/L (23-28); PCO2 VBG 31.3 mmHg (45-50); PO2 VBG 26 mmHg (35-45); Total CO2 VBG 38 mmol/L (24-29); pH VBG 7.68 (7.33-7.43)
[2018-05-28 04:16] LABS: Oxygen Saturation VBG 66 % (70-75)
--- NOTE | 2018-05-28 04:19 | PC.NURSE ---
Out the door with the ambulance at 0408 with vent changes of TV 400, FIO2 at 50%, rate of 16, PEEP 5, Propofol at 20 mcg, Maint at 100/hr, and [place]. Report called at 0415.
== END 2018-05-28 04:10 | disposition short-term general hospital (02) | DRG 133 ==
LOC: ED 12:58 → AC 13:03 → ICU 05-27 09:27
PROVIDERS: Internal Medicine; Nurse Practitioner Adult Health; Admitting Provider Family Medicine; Emergency Provider Emergency Medicine; Visit Provider Family Medicine
DX: J96.22 Acute and chronic respiratory failure with hypercapnia (principal); J96.21 Acute and chronic respiratory failure with hypoxia; G93.6 Cerebral edema; I33.0 Acute and subacute infective endocarditis; B95.61 Methicillin susceptible Staphylococcus aureus infection as the cause of diseases classified elsewhere; N39.0 Urinary tract infection, site not specified; B96.89 Other specified bacterial agents as the cause of diseases classified elsewhere; D32.0 Benign neoplasm of cerebral meninges; E11.9 Type 2 diabetes mellitus without complications; Z79.4 Long term (current) use of insulin; J44.9 Chronic obstructive pulmonary disease, unspecified; E66.01 Morbid (severe) obesity due to excess calories; Z68.43 Body mass index [BMI] 50.0-59.9, adult; I11.0 Hypertensive heart disease with heart failure; R78.81 Bacteremia; I50.9 Heart failure, unspecified
CPT/HCPCS: 36415; 36591; 36592; 36600; 51701; 70450; 70496; 70498; 71045; 80048; 80053; 80202; 80320; 81001; 82009; 82805; 82962; 83605; 83690; 83735; 83880; 84100; 84145; 84484; 85025; 85610; 85730; 87040; 87077; 87086; 87150; 87186; 87205; 87797; 93005; 94002; 94003; 94640; 94660; 94770; 94799; 96361; 96365; 96366; 99285; 99291; J0330; J1100; J1650; J1953; J1956; J2060; J2185; J2704; J3370; Q9967

== ENCOUNTER → 2018-09-18 12:32 | Outpatient (CLI) | payer OTHER, MEDICAID, SELFPAY ==
[2018-05-26 14:28] VITALS: BMI 51.7
[2018-09-18 14:52] LABS: Blood Urea Nitrogen 24 mg/dL (7-17); Calcium 10.1 mg/dL (8.4-10.2); Carbon Dioxide 39 mmol/L (22-32); Chloride 94 mmol/L (98-107); Estimated Glomerular Filt Rate > 60.0 mL/min (>60); Glucose 131 mg/dL (70-100); HEMOLYSIS < 15 (0-50); Potassium 4.3 mmol/L (3.4-5.1); Sodium 139 mmol/L (137-145)
== END ==
PROVIDERS: PCP Family Medicine; Visit Provider Family Medicine
DX: J44.1 Chronic obstructive pulmonary disease with (acute) exacerbation (principal)
CPT/HCPCS: 80048

== ENCOUNTER 2018-09-20 09:09 | Inpatient (IN) | payer OTHER, MEDICAID, SELFPAY ==
[2018-05-26 14:28] VITALS: BMI 51.7
[2018-09-20] VITALS (16 sets, daily range): BP systolic 118–177; BP diastolic 56–79; PULSE 74–96; RESP 16–32; TEMP 36.3–36.9; O2SAT 87–98; BMI 47.5
--- NOTE | 2018-09-20 09:47 | DI.RAD.S_ITS ---
PROCEDURE: XR CHEST 2V INDICATIONS: shortness of breath TECHNIQUE: 2 views of the chest were acquired. COMPARISON: [facility], CR, XR CHEST 1 VIEW, 09/13/2018, 19:54. [facility], CR, XR CHEST 1V, 05/27/2018, 21:52. FINDINGS: Surgical changes and devices: None. Lungs and pleura: No definite pleural effusion. No pneumothorax identified. Bandlike consolidation present in the left upper lobe. There is also increased retrocardiac and right lower lobe opacity. This appears increased since 09/13/18. Lung volumes are low Mediastinum: Mediastinal contours are normal. Heart size is stable. Bones and chest wall: No suspicious bony abnormalities. Soft tissues appear unremarkable. IMPRESSION: Increased bibasilar and left upper lobe patchy consolidative opacities which could represent pneumonia versus atelectasis and or aspiration since 09/13/18. Low lung volumes and widespread mild groundglass opacities. This is suspicious for superimposed pulmonary edema although please correlate clinically. If there is persistent clinical diagnostic uncertainty, continued surveillance with short interval chest radiographs after treatment is recommended. Dictated by: Grupo Vences M.D. on 09/20/2018 at 9:14 Approved by: Grupo Vences M.D. on 09/20/2018 at 9:17
--- NOTE | 2018-09-20 09:51 | PC.NURSE ---
increased oxygen to 3.5 l nc. sats 88-89 on 2lnc. aware
[2018-09-20 09:53] LABS: Add Manual Diff / Slide Review NO; Basophils Absolute Auto 0 /uL (0-100); Basophils Percent Auto 0.3 % (0-2); Eosinophils Absolute Auto 0 /uL (0-450); Eosinophils Percent Auto 0.3 % (2-4); Hematocrit 33.1 % (36-46); Hemoglobin 10.5 g/dL (12.0-16.0); Lymphocytes Absolute Auto 1100 /uL (1100-4500); Lymphocytes Percent Auto 9.3 % (25-40); Mean Corpuscular HGB Conc 31.9 % (30-36); Mean Corpuscular Volume 81.7 fL (80-100); Monocytes Absolute Auto 700 /uL (0-900); Monocytes Percent Auto 5.4 % (3-14); Neutrophils Absolute Auto 10400 /uL (1500-7000); Neutrophils Percent Auto 84.7 % (50-75); Platelet Count 325 X10^3/uL (150-400); Red Blood Cell Count 4.05 X10^6/uL (4.0-5.2); Red Cell Distribution Width 18.2 % (11.6-14.8); White Blood Cell Count 12.2 X10^3/uL (4.5-11.0)
[2018-09-20 10:00] LABS: Alanine Aminotransferase 58 IU/L (9-52); Albumin 4.2 g/dL (3.5-5.0); Albumin Globulin Ratio 1.1 (1.0-2.8); Alkaline Phosphatase 110 U/L (38-126); Aspartate Aminotransferase 21 IU/L (14-36); Bilirubin Total 0.5 mg/dL (0.2-1.3); Blood Urea Nitrogen 24 mg/dL (7-17); Calcium 10.5 mg/dL (8.4-10.2); Carbon Dioxide 39 mmol/L (22-32); Chloride 94 mmol/L (98-107); Estimated Glomerular Filt Rate > 60.0 mL/min (>60); Globulin 3.8 g/dL (1.7-4.1); Glucose 166 mg/dL (70-100); HEMOLYSIS < 15 (0-50); Lactate (Lactic Acid) 1.5 mmol/L (0.7-2.1); Potassium 3.8 mmol/L (3.4-5.1); Sodium 141 mmol/L (137-145)
[2018-09-20] MEDS: ALBUTEROL/IPRATROPIUM 3 ML AMPUL INH ×2 (10:25→19:14)
[2018-09-20 11:20] LABS: B Type Natriuretic Peptide < 100 (<100)
--- NOTE | 2018-09-20 11:24 | PC.NURSE ---
pt has a large amount of foul smelling yeast in abdominal folds. and perineum.
[2018-09-20] MEDS: FUROSEMIDE 100 MG/10 ML VIAL 80 MG IV (11:44)
[2018-09-20] MEDS: MORPHINE 2 MG/ML INJ IV ×2 (12:34→15:07)
[2018-09-20] MEDS: levoFLOXacin 250 MG TABLET 500 MG PO (12:34)
[2018-09-20] MEDS: NITROGLYCERIN OINT 1 INCH/GM OINT...G. TOP (12:34)
--- NOTE | 2018-09-20 14:34 | PC.NURSE ---
Patient wants to wait until she has more of an urge to go to the bathroom. Just not there yet
--- NOTE | 2018-09-20 17:13 | P.HP_ITS ---
History of Present Illness Date Patient Seen: 09/20/18 Chief complaint: Shortness of Breath Narrative: The patient is a 57-year-old female with a history of chronic respiratory failure on 2 L of oxygen, morbid obesity, type 2 diabetes on insulin, hypertension, COPD , history of meningioma who was hospitalized at [facility] for pneumonia about 1 week ago. Patient reports that following that hospitalization she felt the best she has ever felt. The evening of her discharge she started to feel sick. she reports increasing shortness of breath, cough with productive green phlegm, increased swelling of her lower extremities, and In generalized malaise. Patient felt she felt poorly. She called her PCP and was given a prescription for levofloxacin. Unfortunately they were unable to filler picker the prescription until this morning. The patient had felt progressively worse with cough shortness of breath and back pain. Given her progressive symptoms swelling in her legs [facility] In the emergency room a chest x-ray confirmed multifocal pneumonia. The patient was given 1 dose of Lasix with excellent response. Her BNP was less than 100. as the patient was recently hospitalized and treated for pneumonia and has a prior history of MRSA in her sputum she was admitted to the hospital and treated for healthcare associated pneumonia. Given her need for increased oxygenation she will be treated for respiratory failure and COPD as well. The patient denies any headache blurred vision chest pain or palpitations. She denies any hematemesis Melena or bright red blood per rectum. She does report back pain. She notes lower extremity edema. She has no dysuria hematuria or pyuria. Patient reports she has to eat slow because she will choke on her food. But she denies any recent aspiration. Patient History Medical History (Updated 09/20/18 @ 17:29 by Jena Mena MD) Hypoxia (Acute) Meningioma (Acute) Diabetes (Acute) Morbidly obese (Acute) COPD (chronic obstructive pulmonary disease) (Acute) Hypertension (Acute) Chronic respiratory failure (Acute) History of congestive heart failure (Acute) Surgical History Status post appendectomy (Acute) Status post cholecystectomy (Acute) Family History (Updated 09/20/18 @ 17:18 by Jena Mena MD) Daughter No problems noted. Son No problems noted. Mother Diabetes mellitus Congestive heart failure Father Diabetes mellitus Social History household members: significant other Smoking Status: Never smoker Family & Social History Family History (Updated 09/20/18 @ 17:18 by Jena Mena MD) Daughter No problems noted. Son No problems noted. Mother Diabetes mellitus Congestive heart failure Father Diabetes mellitus Social History: household members significant other Safety & Behavioral: Feels Safe in Current Yes Environment Been Physically Hurt or No Threatened By a Person Tobacco & Substance use: Smoking Status Never smoker Substance Use Type does not use Meds Home Medications Medication Instructions Recorded Confirmed Type amlodipine 10 mg PO DAILY 09/20/18 09/20/18 History ascorbic acid (vitamin C) [Vitamin 500 mg PO DAILY 09/20/18 09/20/18 History C With Shona Hips] carvedilol 25 mg PO BID 09/20/18 09/20/18 History ferrous sulfate 325 mg PO DAILY 09/20/18 09/20/18 History furosemide 20 mg PO DAILY 09/20/18 09/20/18 History furosemide 40 mg PO [id number] 09/20/18 09/20/18 History hydralazine 25 mg PO TID 09/20/18 09/20/18 History levetiracetam 500 mg PO BID 09/20/18 09/20/18 History levofloxacin 500 mg PO [id number] 09/20/18 09/20/18 History losartan 100 mg PO DAILY 09/20/18 09/20/18 History mupirocin 1 applic TOPICAL DIRECTED 09/20/18 09/20/18 History nystatin 1 applic TOPICAL [id number] 09/20/18 09/20/18 History potassium chloride 10 meq PO DAILY 09/20/18 09/20/18 History Allergies Allergy/AdvReac Type Severity Reaction Status Date / Time naproxen Allergy Mild MADE MY Verified 05/26/18 10:43 FACE NUMB meperidine Allergy Unknown Verified 05/26/18 10:43 Penicillins Allergy Unknown Verified 05/26/18 10:43 Sulfa (Sulfonamide Allergy Unknown Verified 05/26/18 10:43 Antibiotics) diphenhydramine AdvReac Shakiness Verified 05/26/18 10:43 [From Benadryl] Review of Systems Review of Systems All systems reviewed & are unremarkable except as noted in HPI and below Exam Vital Signs (past 8 hours): - 05/30/19 09:19 09/20/18 09:22 09/20/18 09:49 Temperature 97.4 F L Pulse Rate 90 88 Respiratory Rate 24 32 H Blood Pressure 177/77 H Blood Pressure [Right Arm] Pulse Oximetry 87 L 88 L 89 L 09/20/18 11:25 09/20/18 12:21 09/20/18 12:34 Temperature Pulse Rate 96 H 91 H 91 H Respiratory Rate 21 17 Blood Pressure 167/72 H Blood Pressure [Right Arm] 172/67 H Pulse Oximetry 94 94 09/20/18 13:20 09/20/18 15:15 09/20/18 16:20 Temperature 97.6 F Pulse Rate 89 83 83 Respiratory Rate 18 16 22 Blood Pressure 154/64 H 127/70 Blood Pressure [Right Arm] 154/64 H 149/79 H Pulse Oximetry 94 98 98 Fraction of Inspired Oxygen 2 Oxygen Delivery Method Nasal Cannula Oxygen Flow Rate 3 Narrative Exam Narrative: Ill appearing female coughing HEENT: Normocephalic atraumatic, extraocular muscles are intact, oropharynx is clear, neck is supple. Lungs: Diffuse loud coarse rhonchi at the bases bilaterally. Cardiac exam: Regular rate and rhythm normal S1-S2 Abdomen: Soft, obese, nontender, no appreciable hepatosplenomegaly Extremities: 2 to 3+ pitting edema bilateral Neuro exam: Patient is awake alert oriented, she is appropriate. Cranial nerves 2-12 are intact, strength is symmetric and equal, reflexes are equal, sensation is intact, gait is not assessed Psychiatric exam patient is awake oriented and appropriate. There is no delusion tick or evidence of hallucination Objective Labs Result Diagrams: 09/20/18 09:30 09/20/18 09:30 Labs: Laboratory Results - last 24 hr 09/20/18 09/20/18 09/20/18 09:30 09:30 09:30 WBC 12.2 H RBC 4.05 Hgb 10.5 L Hct 33.1 L MCV 81.7 MCH 26.0 MCHC 31.9 RDW 18.2 H Plt Count 325 Neut % (Auto) 84.7 H Lymph % (Auto) 9.3 L [place] % (Auto) 5.4 Eos % (Auto) 0.3 L Baso % (Auto) 0.3 Neut # (Auto) 98490 H Lymph # (Auto) 1100 [place] # (Auto) 700 Eos # (Auto) 0 Baso # (Auto) 0 Sodium 141 Potassium 3.8 Chloride 94 L Carbon Dioxide 39 H BUN 24 H Creatinine 0.80 Estimated GFR > 60.0 BUN/Creatinine Ratio 30.0 H Glucose 166 H Lactate 1.5 Calcium 10.5 H Total Bilirubin 0.5 AST 21 ALT 58 H Alkaline Phosphatase 110 B-Natriuretic Peptide Total Protein 8.0 Albumin 4.2 Globulin 3.8 Albumin/Globulin Ratio 1.1 09/20/18 09:30 WBC RBC Hgb Hct MCV MCH MCHC RDW Plt Count Neut % (Auto) Lymph % (Auto) [place] % (Auto) Eos % (Auto) Baso % (Auto) Neut # (Auto) Lymph # (Auto) [place] # (Auto) Eos # (Auto) Baso # (Auto) Sodium Potassium Chloride Carbon Dioxide BUN Creatinine Estimated GFR BUN/Creatinine Ratio Glucose Lactate Calcium Total Bilirubin AST ALT Alkaline Phosphatase B-Natriuretic Peptide < 100 Total Protein Albumin Globulin Albumin/Globulin Ratio Assessment & Plan (1) Acute and chronic respiratory failure: Problem details: The patient presents with progressive shortness of breath. She is chronically on 2.5 L of oxygen and read is requiring 3 L now. She has acute on chronic respiratory failure. This is present on admission. Patient will continue on oxygen, nebs, steroid, antibiotics. Will obtain sputum culture, respiratory screen, ins procalcitonin. Current visit: Yes Status: Acute (2) COPD with exacerbation: Problem details: Patient has a chronic COPD. Unclear whether her current respiratory issues are due to a COPD exacerbation, worsening respiratory failure due to pneumonia or, heart failure. At this time will continue her nebulizer treatment and start her on oral prednisone. Current visit: Yes Status: Acute (3) Aspiration pneumonia: Problem details: Aspiration pneumonia versus healthcare associated pneumonia probable, present on admission. Patient does admit to difficulty eating. Will ask for speech therapy to evaluate her for possible aspiration. In the in antrum given her recent hospital stay she will be treated for Hcap with meropenem and vancomycin. Current visit: Yes Status: Acute (4) CHF (congestive heart failure): Problem details: Chronic congestive heart failure, etiology unclear, patient was treated for endocarditis. I do not see an echocardiogram to evaluate LV function. Will obtain prior echo report. This likely was present on admission. Will continue her on her usual Lasix that she was on previously. Patient will also continue on her losartan as well. Qualifiers: Heart failure chronicity: Heart failure type: Current visit: Yes Status: Acute (5) Meningioma: Problem details: This is apparently stable and not related to the current symptoms. Neurosurgical outpatient evaluation is in process. She is on Keppra as a precaution for seizure prevention. Current visit: No Status: Acute (6) Diabetes: Problem details: This is a relatively new diagnosis for her. She will be on her usual NPH and Aspart correctional scale. Will need to obtain correct dosing of her medication and start according Current visit: No Status: Acute (7) Morbidly obese: Current visit: No Status: Acute (8) COPD (chronic obstructive pulmonary disease): Problem details: No current exacerbation. Continue on oxygen. Current visit: No Status: Acute (9) Hypertension: Problem details: Continue carvedilol and losartan. Patient is currently amlodipine and will continue this as well. Current visit: No Status: Acute Assessment & Plan narrative: Patient is a full code will note that a record accordingly. Patient has Staph aureus endocarditis, MRSA in the nares, will continue her mupirocin.
[2018-09-20] MEDS: HYDROCODONE/ACET 5/325 TABLET 1 TAB PO ×2 (17:30→23:47)
[2018-09-20] MEDS: ENOXAPARIN 40 MG/0.4 ML SYRINGE SUBCUT (17:36)
[2018-09-20] MEDS: VANCOMYCIN 2,000 MG in SODIUM CHLORIDE 0.9% 500 ML 250 ML IV (17:37)
[2018-09-20 20:53] LABS: Procalcitonin < 0.05 ng/mL (<0.5)
[2018-09-20] MEDS: HYDROMORPHONE 1 MG INJ 0.5 MG IV (20:54)
[2018-09-20] MEDS: MEROPENEM 1 GM in SODIUM CHLORIDE 0.9% 100 ML 200 ML IV (20:55)
[2018-09-20] MEDS: CARVEDILOL 25 MG TABLET PO (20:56)
[2018-09-20] MEDS: FUROSEMIDE 40 MG TABLET PO (20:56)
[2018-09-20] MEDS: DOCUSATE 100 MG CAPSULE PO (20:56)
[2018-09-20] MEDS: HYDRALAZINE 25 MG TABLET PO (20:57)
[2018-09-20] MEDS: levETIRAcetam 250 MG TABLET 500 MG PO (20:57)
[2018-09-20] MEDS: NYSTATIN POWDER 30 GM 1 APPLIC TOP (20:58)
[2018-09-20] MEDS: MUPIROCIN 22 GM OINT 1 APPLIC TOP (20:58)
[2018-09-20] MEDS: SENNOSIDES 8.6 MG TABLET 17.2 MG PO (20:58)
[2018-09-21] VITALS (14 sets, daily range): BP systolic 135–181; BP diastolic 62–88; PULSE 70–90; RESP 16–22; TEMP 36.4–37.9; O2SAT 90–100
[2018-09-21] MEDS: VANCOMYCIN 200 ML 200 MG IV ×3 (02:02→22:03)
[2018-09-21] MEDS: MEROPENEM 1 GM in SODIUM CHLORIDE 0.9% 100 ML 200 ML IV ×3 (03:56→19:44)
[2018-09-21] MEDS: HYDROCODONE/ACET 5/325 TABLET 1 TAB PO ×4 (03:56→19:44)
[2018-09-21 03:57] LABS: Adenovirus Not Detected (Not Detect); Bordetella pertussis Not Detected (Not Detect); Chlamydophila pneumoniae Not Detected (Not Detect); Coronavirus 229E Not Detected (Not Detect); Coronavirus HKU1 Not Detected (Not Detect); Coronavirus NL 63 Not Detected (Not Detect); Coronavirus OC43 Not Detected (Not Detect); Human Metapneumovirus Not Detected (Not Detect); Human Rhinovirus/Enterovirus Not Detected (Not Detect); Influenza A Not Detected (Not Detect); Influenza B Not Detected (Not Detect); Mycoplasma pneumoniae Not Detected (Not Detect); Parainfluenza Virus 1 Not Detected (Not Detect); Parainfluenza Virus 2 Not Detected (Not Detect); Parainfluenza Virus 3 Not Detected (Not Detect); Parainfluenza Virus 4 Not Detected (Not Detect); Respiratory Syncytial Virus Not Detected (Not Detect)
[2018-09-21] MEDS: ACETAMINOPHEN 325 MG TABLET 650 MG PO (05:18)
[2018-09-21 05:52] LABS: Add Manual Diff / Slide Review NO; Basophils Absolute Auto 0 /uL (0-100); Basophils Percent Auto 0.4 % (0-2); Eosinophils Absolute Auto 0 /uL (0-450); Eosinophils Percent Auto 0.3 % (2-4); Hematocrit 28.1 % (36-46); Lymphocytes Absolute Auto 1100 /uL (1100-4500); Mean Corpuscular Volume 81.1 fL (80-100); Monocytes Absolute Auto 900 /uL (0-900); Monocytes Percent Auto 7.7 % (3-14); Neutrophils Absolute Auto 9100 /uL (1500-7000); Neutrophils Percent Auto 81.6 % (50-75); Platelet Count 286 X10^3/uL (150-400); Red Blood Cell Count 3.46 X10^6/uL (4.0-5.2); Red Cell Distribution Width 17.8 % (11.6-14.8); White Blood Cell Count 11.2 X10^3/uL (4.5-11.0)
[2018-09-21 06:05] LABS: Alanine Aminotransferase 42 IU/L (9-52); Albumin 3.6 g/dL (3.5-5.0); Albumin Globulin Ratio 1.1 (1.0-2.8); Alkaline Phosphatase 83 U/L (38-126); Aspartate Aminotransferase 15 IU/L (14-36); BUN Creatinine Ratio 21.1 (6-22); Bilirubin Total 0.6 mg/dL (0.2-1.3); Blood Urea Nitrogen 19 mg/dL (7-17); Calcium 9.3 mg/dL (8.4-10.2); Carbon Dioxide 38 mmol/L (22-32); Chloride 92 mmol/L (98-107); Estimated Glomerular Filt Rate > 60.0 mL/min (>60); Globulin 3.4 g/dL (1.7-4.1); Glucose 118 mg/dL (70-100); HEMOLYSIS < 15 (0-50); Potassium 3.5 mmol/L (3.4-5.1); Sodium 137 mmol/L (137-145)
--- NOTE | 2018-09-21 07:24 | P.PN_ITS ---
Subjective Date Patient Seen: 09/21/18 Time Patient Seen: 08:23 Interval history: She says that it feels much better to be breathing again and to be improving each day. She was just in the hospital in [place] and when she left there was also feeling ?like a spring long? so she is appropriately wary of back sliding her improvement. Her T-max is 100.2? with 90% saturation on 3 L nasal cannula. The white blood count is 11.2 with a hemoglobin of 9.0. The potassium is 3.5. The renal function is normal. Her blood sugar is 118. I reviewed her chest x-ray which appears to show a very large heart and a left upper lobe infiltrate with pulmonary edema in the right lower lobe. Exam Vital Signs (past 8 hours): - 09/20/18 23:50 09/21/18 05:15 09/21/18 05:18 Temperature 100.2 F H 100.2 F H Pulse Rate 90 Respiratory Rate 16 Blood Pressure 135/72 Pulse Oximetry 93 90 L Fraction of Inspired Oxygen 2 Oxygen Delivery Method Nasal Cannula Oxygen Flow Rate 3 Narrative Exam Narrative: She is alert and oriented x3. No apparent distress. Heart is regular rate and rhythm without murmur. Lungs have coarse upper airway sounds bilaterally and diminished breath sounds at the bases. Extremities have no ankle edema. Objective Labs Result Diagrams: 09/21/18 05:10 09/21/18 05:10 Labs: Laboratory Results - last 24 hr 09/20/18 09/20/18 09/20/18 09:30 09:30 09:30 WBC 12.2 H RBC 4.05 Hgb 10.5 L Hct 33.1 L MCV 81.7 MCH 26.0 MCHC 31.9 RDW 18.2 H Plt Count 325 Neut % (Auto) 84.7 H Lymph % (Auto) 9.3 L [place] % (Auto) 5.4 Eos % (Auto) 0.3 L Baso % (Auto) 0.3 Neut # (Auto) 73467 H Lymph # (Auto) 1100 [place] # (Auto) 700 Eos # (Auto) 0 Baso # (Auto) 0 Sodium 141 Potassium 3.8 Chloride 94 L Carbon Dioxide 39 H BUN 24 H Creatinine 0.80 Estimated GFR > 60.0 BUN/Creatinine Ratio 30.0 H Glucose 166 H Lactate 1.5 Calcium 10.5 H Total Bilirubin 0.5 AST 21 ALT 58 H Alkaline Phosphatase 110 B-Natriuretic Peptide Total Protein 8.0 Albumin 4.2 Globulin 3.8 Albumin/Globulin Ratio 1.1 Procalcitonin Chlamy pneumoniae PCR Adenovirus (PCR) B.parapertussis DNA PCR Coronavirus OC43 (PCR) Coronavirus HKU1 (PCR) Coronavirus 229E (PCR) Coronavirus NL63 (PCR) Human Metapneumovir PCR Influenza Type A (PCR) Influenza Type B (PCR) M. pneumoniae (PCR) Parainfluenza 1 (PCR) Parainfluenza 2 (PCR) Parainfluenza 3 (PCR) Parainfluenza 4 (PCR) RSV (PCR) Entero/Rhino (PCR) 09/20/18 09/20/18 09/21/18 09:30 09:30 02:35 WBC RBC Hgb Hct MCV MCH MCHC RDW Plt Count Neut % (Auto) Lymph % (Auto) [place] % (Auto) Eos % (Auto) Baso % (Auto) Neut # (Auto) Lymph # (Auto) [place] # (Auto) Eos # (Auto) Baso # (Auto) Sodium Potassium Chloride Carbon Dioxide BUN Creatinine Estimated GFR BUN/Creatinine Ratio Glucose Lactate Calcium Total Bilirubin AST ALT Alkaline Phosphatase B-Natriuretic Peptide < 100 Total Protein Albumin Globulin Albumin/Globulin Ratio Procalcitonin < 0.05 Chlamy pneumoniae PCR Not detected Adenovirus (PCR) Not detected B.parapertussis DNA PCR Not detected Coronavirus OC43 (PCR) Not detected Coronavirus HKU1 (PCR) Not detected Coronavirus 229E (PCR) Not detected Coronavirus NL63 (PCR) Not detected Human Metapneumovir PCR Not detected Influenza Type A (PCR) Not detected Influenza Type B (PCR) Not detected M. pneumoniae (PCR) Not detected Parainfluenza 1 (PCR) Not detected Parainfluenza 2 (PCR) Not detected Parainfluenza 3 (PCR) Not detected Parainfluenza 4 (PCR) Not detected RSV (PCR) Not detected Entero/Rhino (PCR) Not detected 09/21/18 09/21/18 05:10 05:10 WBC 11.2 H RBC 3.46 L Hgb 9.0 L Hct 28.1 L MCV 81.1 MCH 26.0 MCHC 32.0 RDW 17.8 H Plt Count 286 Neut % (Auto) 81.6 H Lymph % (Auto) 10.0 L [place] % (Auto) 7.7 Eos % (Auto) 0.3 L Baso % (Auto) 0.4 Neut # (Auto) 9100 H Lymph # (Auto) 1100 [place] # (Auto) 900 Eos # (Auto) 0 Baso # (Auto) 0 Sodium 137 Potassium 3.5 Chloride 92 L Carbon Dioxide 38 H BUN 19 H Creatinine 0.90 Estimated GFR > 60.0 BUN/Creatinine Ratio 21.1 Glucose 118 H Lactate Calcium 9.3 Total Bilirubin 0.6 AST 15 ALT 42 Alkaline Phosphatase 83 B-Natriuretic Peptide Total Protein 7.0 Albumin 3.6 Globulin 3.4 Albumin/Globulin Ratio 1.1 Procalcitonin Chlamy pneumoniae PCR Adenovirus (PCR) B.parapertussis DNA PCR Coronavirus OC43 (PCR) Coronavirus HKU1 (PCR) Coronavirus 229E (PCR) Coronavirus NL63 (PCR) Human Metapneumovir PCR Influenza Type A (PCR) Influenza Type B (PCR) M. pneumoniae (PCR) Parainfluenza 1 (PCR) Parainfluenza 2 (PCR) Parainfluenza 3 (PCR) Parainfluenza 4 (PCR) RSV (PCR) Entero/Rhino (PCR) Assessment & Plan Assessment & Plan narrative: (1) Acute and chronic respiratory failure: Problem details: The patient presented with progressive shortness of breath. She is chronically on 2.5 L of oxygen and is now requiring 3 L. She has acute on chronic respiratory failure and presented with hypercapnic and hypoxic respiratory failure. This was present on admission. Patient will continue on oxygen, nebs, steroid, antibiotics. Current visit: Yes Status: Acute (2) COPD with exacerbation: Problem details: Patient has a chronic COPD. Unclear whether her current respiratory issues are due to a COPD exacerbation, worsening respiratory failure due to pneumonia or, heart failure. At this time will continue her nebulizer treatment and continue her on oral prednisone. Current visit: Yes Status: Acute (3) Aspiration pneumonia: Problem details: Aspiration pneumonia versus healthcare associated pneumonia probable, present on admission. Patient does admit to difficulty eating. Will ask for speech therapy to evaluate her for possible aspiration. In the meantime given her recent hospital stay she will be treated for Hcap with meropenem and vancomycin to treat potential pathogens including gram-negative bacteria, Gram-positive bacteria, MRSA, anaerobes. The continued low-grade fevers along with normal BNP of less than 100 and normal procalcitonin of less than than 0.05 would point towards aspiration pneumonia as the likely cause. The respiratory viral panel was also negative. Consider chest CT to rule out PE as the cause of the low- grade fevers. Current visit: Yes Status: Acute (4) CHF (congestive heart failure): Problem details: Chronic congestive heart failure, etiology unclear, patient was treated for endocarditis. I do not see an echocardiogram to evaluate LV function. Will ob tain prior echo report. This likely was present on admission. Will continue her on her usual Lasix that she was on previously. Patient will also continue on her carvedilol and losartan as well. Qualifiers: Heart failure chronicity: Heart failure type: Current visit: Yes Status: Acute (5) Meningioma: Problem details: This is apparently stable and not related to the current symptoms. Neurosurgical outpatient evaluation is in process. She is on Keppra as a precaution for seizure prevention. Current visit: No Status: Acute (6) Diabetes: Problem details: This is a relatively new diagnosis for her. She will be on her usual NPH and Aspart correctional scale. Blood sugars today are controlled. Current visit: No Status: Acute (7) Morbidly obese: Current visit: No Status: Acute (8) Hypertension: Problem details: Continue carvedilol, amlodipine and losartan. Current visit: No Status: Acute Assessment & Plan narrative: Patient is a full code. Her and daughter are her backup decision makers. Patient has had Staph aureus endocarditis, MRSA in the nares, will continue her mupirocin.
[2018-09-21] MEDS: DOCUSATE 100 MG CAPSULE PO ×2 (08:23→20:15)
[2018-09-21] MEDS: NYSTATIN POWDER 30 GM 1 APPLIC TOP ×2 (08:23→19:45)
[2018-09-21] MEDS: levETIRAcetam 250 MG TABLET 500 MG PO ×2 (08:23→20:16)
[2018-09-21] MEDS: CARVEDILOL 25 MG TABLET PO ×2 (08:23→20:14)
[2018-09-21] MEDS: AMLODIPINE 5 MG TABLET 10 MG PO (08:23)
[2018-09-21] MEDS: HYDRALAZINE 25 MG TABLET PO ×3 (08:23→20:15)
[2018-09-21] MEDS: LOSARTAN 50 MG TABLET 100 MG PO (08:23)
[2018-09-21] MEDS: FUROSEMIDE 40 MG TABLET PO ×2 (08:23→20:15)
[2018-09-21] MEDS: predniSONE 20 MG TABLET 40 MG PO (08:23)
[2018-09-21] MEDS: MUPIROCIN 22 GM OINT 1 APPLIC TOP ×2 (08:23→20:14)
[2018-09-21] MEDS: POTASSIUM CHLORIDE 10 MEQ TAB PO (08:24)
[2018-09-21] MEDS: INSULIN ASPART 100 UNIT/ML INSULN PEN SUBCUT ×2 (11:15→16:40)
--- NOTE | 2018-09-21 11:25 | PM.CHAP ---
Patient rather depressed with inabilility to breathe and congestion. Fearful of being alone. Prayer and encouragement.
--- NOTE | 2018-09-21 11:43 | ST.IPSCREEN ---
Order received for swallowing assessment secondary to suspected aspiration pneumonia. Met with patient whe noted that since her stroke/siezure, she has had difficulty swallowing. She described frequent choking on solids as well as liquids. Chest x-ray noted RLL opacity, increased since 09/13/18. MBSS recommended to better determine aspiration risk and aid in development of POC.
--- NOTE | 2018-09-21 12:45 | PC.NURSE ---
Addendum entered by Mayelin Ayala R.N. 09/21/18 14:53: Pt unable to do the modified barrium swollow as she was too wide for the machine. Given Vicodin at 1400, pain level down to 5/10 in chest and 7 in back. Vicodin not given at time prior to going to procedure as she was to groggy and fear of pt falling asleep during procedure. As soon as she was back to room, meds given. She is more comfortable and worked with speech therapy. Her diet has been changed to a more soft texture. Denies discomfort at this time when asked. Addendum entered by Mayelin Ayala R.N. 09/21/18 13:23: Pt asking for Vicodin. States that her pain is 8/10. She is groggy and then falls right back to sleep. Physical therapy in room getting pt into special chair that they use for modified barium swallow. Will give pt her pain medication as soon as she gets back to her room. Original Note: Pts lung sounds course, with crackles and wheezes. She has a cough that sounds wet with gunk in her airway . She refused working with RT, stating that when she tries to cough up sputum it makes her cough and choke. Told pt very firmly that she needs to cough and get phlegm up so that it will help her breath better. She will be working with RT when they come around again. Pt also out of bed with ana cristnia and tolerated well. She is sitting up and waiting to go down to her modified barrium swollow at 1330. Pt will help pt get into wheel chair. She is napping at this time.
--- NOTE | 2018-09-21 13:15 | PT.IIE ---
Current Diagnoses Benign neoplasm of meninges, unspecified (09/20/18) Type 2 diabetes mellitus without complications (09/20/18) Morbid (severe) obesity due to excess calories (09/20/18) Essential (primary) hypertension (09/20/18) Heart failure, unspecified (09/20/18) Chronic obstructive pulmonary disease with (acute) exacerbation (09/20/18) Chronic obstructive pulmonary disease, unspecified (09/20/18) Pneumonitis due to inhalation of food and vomit (09/20/18) Acute and chronic respiratory failure, unspecified whether with hypoxia or hypercapnia (09/20/18) Surgical History (Last Reviewed 05/27/18 @ 14:01 by Ángela Worthington MD) Status post appendectomy (Acute) Status post cholecystectomy (Acute) Medical History (Last Updated 09/20/18 @ 17:17 by eJna Mena MD) Hypoxia (Acute) Meningioma (Acute) Diabetes (Acute) Morbidly obese (Acute) COPD (chronic obstructive pulmonary disease) (Acute) Hypertension (Acute) Chronic respiratory failure (Acute) History of congestive heart failure (Acute) Physical Therapy Inpatient Evaluation/Re-Eval M1 PT/OT-IP Prior Functional Status Start: 09/21/18 14:18 Freq: NEEDED Status: Active Protocol: Document 09/21/18 13:15 AB (Rec: 09/21/18 14:41 AB [id number]) Medical Review Prior Functional Status Medical History Reviewed Yes Communication able to make needs known Mobility and Gait pt stated that she is modified independent with all mobilities and ambulation using 4WW but uses a manual w/ c for outdoor/long distance mobility. stated that her 36 y/o daughter pushes her on her w/c. pt stated that a PT comes in to work with her from [email or web address] and a nurse also comes in to check on her. Social History Household Members children Living Arrangements House Number of Floors (Floors) One Floor Number of Stairs To Enter/Railing? 1 step to enter Home Environment Standard Height Toilet Tub/Shower Home Equipment Four Wheel Walker Bedside Commode Tub Transfer Slab Lifting Engineer Held Shower Grab Bars In Shower M2 PT-IP Current Condition Start: 09/21/18 14:18 Freq: NEEDED Status: Active Protocol: Document 09/21/18 13:15 AB (Rec: 09/21/18 14:41 AB [id number]) Physical Therapy Current Condition Current Condition Evaluation Date 09/21/18 Treatment Diagnosis PNA; COPD; difficulty in walking Onset Date 09/20/18 Precautions Other Precautions O2 sat : O2 at 4L/min at this time M3 PT-IP Subjective Start: 09/21/18 14:18 Freq: NEEDED Status: Active Protocol: Document 09/21/18 13:15 AB (Rec: 09/21/18 14:41 AB [id number]) Subjective Physical Therapy Visit Type Type Initial Evaluation Visit Start Time 13:15 Visit Stop Time 13:43 Total Visit Minutes 28 Number of WATER OPERATOR Visits 0 Physical Therapy Visit Comments Patient Comments pt agreed to do PT Therapy Pain Assessment Pain When Pain Assessed At Rest Location Back/Lungs Scale Used pain scale not stated M4 PT-IP Mobility and Gait Start: 09/21/18 14:18 Freq: NEEDED Status: Active Protocol: Document 09/21/18 13:15 AB (Rec: 09/21/18 14:41 AB [id number]) PT-Bed Mobility Assessment Sit to Supine Sit to Supine Maximum Assistance 2 Person Assistance PT-Transfer Assessment Sit to and From Stand Sit to and from Stand Moderate Assistance 2 Person Assistance Use of Upper Extremities Equipment Transfer Assistive Device Gait Belt Front Wheeled Walker Orthotic/Prosthetic Devices or Brace: No Transfers Transfer Destination Bed Chair Transfer Technique Stand Step Pivot Transfer Ability Level of Assist Moderate Assistance 1 Person Assistance 2 Person Assistance Use of Upper Extremities Comments Mobility Comments Nurse requested PT's assistance to transfer pt for MBS procedure. pt completed sit to stand from chair mod A x 2 and max cues and completed stand step pivot transfer to the bed using FWW mod A x 1-2 and max cues. positioned MBS chair next to the bed and pt requiring mod A x 2 to scoot from bed to chair. midway, pt was able to complete a squat pivot transfer mod A x 2 to the chair. pt came back up with network technical analyst and pt wants to go back to bed. pt completed sit to stand from a high chair mod A x 1 and max cues and completed stand step pivot transfer using FWW mod A x 1-2 and max cues. pt required max A x 2 for bed mobility sit to supine with assist with trunk control and LE elevation. positioned pt on the chair. Left pt with OT . O2 sat with activity 90 to 94% with 4L/min O2 PT-Balance Assessment Sitting Balance and Reactions Static Sitting Balance Ability Good Dynamic Sitting Balance Ability Good Standing Balance and Reactions Static Standing Balance Ability Fair Dynamic Standing Balance Ability Poor Device Used FWW M5 PT-IP Objective Assessments Start: 09/21/18 14:18 Freq: NEEDED Status: Active Protocol: Document 09/21/18 13:15 AB (Rec: 09/21/18 14:41 AB [id number]) Orientation Orientation/Cognition Level of Alertness Alert Orientation Name Age Birthday Month Date Year Day of Week Place Situation Language Function Ability Hard of Hearing Safety Awareness Decreased Safety Awareness Gross Range of Motion Lower Extremity ROM Assessment Within Functional Limits Strength Lower Extremity Strength Assessment Bilaterally Impaired Comments Strength Comments LLE: 4-/5 RLE: 3+/5 M6 PT-IP Treatment Start: 09/21/18 14:18 Freq: NEEDED Status: Active Protocol: Document 09/21/18 13:15 AB (Rec: 09/21/18 14:41 AB [id number]) Physical Therapy Treatment Education Education Provided Safety M7 PT-IP Assessment and Plan Start: 09/21/18 14:18 Freq: NEEDED Status: Active Protocol: Document 09/21/18 13:15 AB (Rec: 09/21/18 14:41 AB [id number]) PT Summary Assessment and Plan Potential Rehabilitation Potential Fair Status of Condition at Evaluation Evolving Summary Impairments Pain ROM Strength Balance Coordination Sensation Tone Cognition Bed Mobility Transfers Gait Activity Tolerance Assessment Summary pt requiring 2 person mod A with mobility and presents with decrease acitivty tolerance affecting mobility. per at this time pt will require SNF rehab. Goals Bed Mobility Goal Standby Assistance Transfer Goal Standby Assistance Front Wheeled Walker Gait Goal Contact Guard Assistance Front Wheel Walker Gait Distance 50 Other Goals up/down 1 step to enter CGA Days to Meet Goals 10 Frequency of Treatment Frequency Of Treatment Once a Day Treatment Plan Physical Therapy Treatment Plan Bed Mobility Training Transfer Training Gait Training Therapeutic Exercise Balance Retraining Discharge Planning Hot or Cold Pack Neuromuscular Re-ed Coordination Retraining Manual Therapy Other Recommendations and Next Treatment ambulation Focus Recommendations To Nursing Amount of Assist Needed 2 Person Assist Discharge Recommendations PT Discharge Recommendations SNF Rehab Equipment Needed for Home Before FWW if not safe with 4WW Discharge
--- NOTE | 2018-09-21 14:04 | CM.IDA ---
Initial DCP Assessment Note: Pt is a 57 yo female, resident of [place]. Pt is admitted w/acute resp. failure, COPD exacerbation, aspiration pneumonia w/ CHF. PCP: Dr Lin Payer: [facility] HO/ Medicaid Pt discussed in multidisciplinary rounds. Dr Lin rounding today and familiar w/pt since he is her PCP. Dr Lin unsure today if pt will be able to return home vs SNF, pt has multiple co-morbidities but manages at home w/assist from multiple family members, kids and grand kids. Met w/pt alongside OT Marcie, both OT and this CROWN PERFORATOR OPERATOR were attempting to glean baseline function and assess home environment. LOGISTICS ADMINISTRATOR Leah also entered to begin treatment. Pt lives in an older manufactured home w/ her partner, Hermelindo, 76 yo, who doesn't talk much, two dtrs, one 36 and one 13, and grand kids, one 17 yo, other (s) ? It sounds as if son in law also lives w/them. Pt is reliant on her dtr and family for care, assist w/all ADLs. Pt likes to sleep upright in a recliner so she can breathe. Pt explains the hallways in her home are very narrow and an ambulance stretcher will not fit, pt's walker barely fits according to her report, but she uses her walker to get into her BR by moving backwards. Pt currently has [facility] and would like to resume this if DC home. Pt recently had a stay at [facility], she was there for approx 2 weeks and DC home w/her family. Pt has Medicaid but denies having [employer]. Pt says she is trying to get social security. Pt uses medicaid transportation for Dr escamilla. This CROWN PERFORATOR OPERATOR asks pt what her DC goal is ? Pt says she needs to discuss this w/her family and Dr Lin before making a decision. OT/PT evals pending and medical POC still unfolding; CROWN PERFORATOR OPERATOR team will follow closely to assist in coordination of safe DCP. LISSETT Arnold Discharge Planning/Care Management CM Discharge Assessment Start: 09/21/18 14:00 Freq: Status: Active Protocol: Document 09/21/18 14:00 CHRYSTAL (Rec: 09/21/18 14:04 CHRYSTAL [id number]) Discharge Planning Assessment Assigned Land Lease Information Clerk LISSETT Dorantes DPOA/Assigned Designee Name Hermelindo Pelayo, spouse doesn't talk much and Halle Contreras dtr Contact Information Hermelindo: [phone] Halle: [phone] Advance Directives? No History Provided By Patient Medical Record Household Members significant other family children Independent with ADL's No Is patient alert and oriented? Yes Needs Assistance With Bathing Eating Grooming Meal Prep Toileting Managing Medications Home Chores / Shopping Comment Dependent care, family provides assist Comment nadine RATLIFF Additional Comment Needs further assess, pending functional assessment Whiteboard Updated in Patient Room with Yes name and ext. # of Land Lease Information Clerk Review Status In Process
--- NOTE | 2018-09-21 14:59 | ST.IPCSEOM ---
Current Diagnoses Benign neoplasm of meninges, unspecified (09/20/18) Type 2 diabetes mellitus without complications (09/20/18) Morbid (severe) obesity due to excess calories (09/20/18) Essential (primary) hypertension (09/20/18) Heart failure, unspecified (09/20/18) Chronic obstructive pulmonary disease with (acute) exacerbation (09/20/18) Chronic obstructive pulmonary disease, unspecified (09/20/18) Pneumonitis due to inhalation of food and vomit (09/20/18) Acute and chronic respiratory failure, unspecified whether with hypoxia or hypercapnia (09/20/18) Past Medical History (Last Updated 09/20/18 @ 17:17 by Jena Mena MD) Hypoxia (Acute Medical) She is at her baseline hypoxia with 2 L nasal cannula as she takes at home. Meningioma (Acute Medical) This is apparently stable and not related to the current symptoms. Neurosurgical outpatient evaluation is in process. She is on Keppra as a precaution for seizure prevention. Diabetes (Acute Medical) This is a relatively new diagnosis for her. She will be on her usual NPH and Aspart correctional scale. Will need to obtain correct dosing of her medication and start according Morbidly obese (Acute Medical) COPD (chronic obstructive pulmonary disease) (Acute Medical) No current exacerbation. Continue on oxygen. Hypertension (Acute Medical) Continue carvedilol and losartan. Patient is currently amlodipine and will continue this as well. 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 Mena Reason for Referral Possible aspiration pneumonia Setting Assessment Location Acute Care Visit Type Note Type Initial Evaluation Next Note Type Next Note Type Treatment Note Patient Information Identification Type Name History Patient here for acute and chronic respiratory failure, currently on 2L of O2. Chest x -ray from 09/20 showed increased bibasilar and left upper lobe patchy consolidative opacities which could represent pneumonia versus atelectasis and or aspiration since 09/13/18. Patient was scheduled for Modified Barium Swallow Study today at 1:30 but was unable to perform study due to width restrictions of the x-ray machine. Subjective Observations Patient seen sitting upright in bed with lunch including soup and jello. Nursing in to lower patient's O2 from 4L to 2L. Patient maintained 96% with 2L. Evaluation Liquids Trialed Thin Solids Trialed Puree Dysphagia Mechanical Administration Type Self-Feeding Oral Strategies Upright at 90 degrees Oral Phase Comments Physical examination of oral mechanism revealed strength and range of motion adequate for mastication. No impairment in lip closure. No pocketing observed. No nasal regurgitation. Overall, the patient's endurance is low for mastication of solid foods and she eats mostly soft foods such as soup at home. She reports taking medications whole, a few at a time, with liquids without difficulty at home. Pharyngeal Strategies Sitting Upright (90 deg) Small Bites and Sips Alternate Liquids/Solids Pharyngeal Phase Comments Unproductive wet cough present both prior to and during meal , though no coughing observed during or immediately after swallowing solids or thin liquids (single and consecutive straw sips). Despite this, aspiration cannot be ruled out at this time without instrumental assessment. Laryngeal elevation present on palpation. Soft palate elevates on phonation and sustained phonation/relaxation. Patient reports solids getting stuck and occasional choking episodes, which began ~5 months ago following her stay for seizure. She reports having diverticulosis, but denies reflux or any other esophageal diagnoses. Findings Dysphagia Type Pharyngeal Rehabilitation Potential Good Impressions Patient with complex medical history including COPD, CHF, chronic respiratory failure as well as recurrent pneumonia. Given these factors, risk of aspiration is high. Education was provided to the patient regarding aspiration precautions including maintaining adequate oral hygiene and compensatory strategies such as slow rate, small bites/sips and alternate liquids solids. She verbalized understanding. She would also benefit from frequent rest breaks due to respiratory insufficiency and low endurance. Diet Recommendations Liquids Order Thin Diet Order Dysphagia Mechanical Medication Recommendations As Tolerated Additional Dietary Needs Reminders to Use Strategies Aspiration Precautions Recommended Precautions Upright at 90 Degrees Alternate Liquids/Solids Frequent Rest Periods Small Bites/Sips Treatment Plan Placement Recommendations after Care Home Facility Discharge Appropriate for Therapy Yes Therapy Recommendations Dysphagia management and ongoing education Dysphagia Goals Rocío will demonstrate understanding of and compliance with recommended strategies and aspiration precautions during a meal.
[2018-09-21] MEDS: ENOXAPARIN 40 MG/0.4 ML SYRINGE SUBCUT (16:39)
[2018-09-21 16:46] LABS: B Type Natriuretic Peptide < 100 (<100)
--- NOTE | 2018-09-21 17:10 | PC.NURSE ---
Addendum entered by Sharon Corley R.N. 09/21/18 22:57: States able to produce sputum with cough. 2.5 L per nc sats 100%. Vicodin as per request for back pain 12/01. Vancomycin infusing as per pharmacist order; new label per [facility]. Continues to refuse R.T. treatments that this automatic typewriter inspector has offered. Addendum entered by Sharon Corley R.N. 09/21/18 18:55: Vanco trough reported by Raegan in lab as 23.6. Pharmacist, Evgeny, was informed by this automatic typewriter inspector. Order not to give the 1800 dose and pharmacy to adjust. Pt continues to rest in bed with head elevated and eyes closed; continuous pulse oximeter in place. 2.5 L per nc sats 98%. Addendum entered by Sharon Corley R.N. 09/21/18 18:41: Awaiting trough value prior to infusing 1800 vancomycin. Lab has been drawn. Pt resting quietly in bed with eyes closed. Continuous pulse oximeter in place. Placed pt on contact precautions as pt last chart note by as discussed by animal maintenance supervisor, Valentina, with this automatic typewriter inspector. Pt has h/o MRSA in nares. Sputum was collected and sent to lab. Original Note: Pt awake and alert positioned upright in bed with female visitor in room @ shift exchange. R.T. finds this automatic typewriter inspector early on in shift to state pt is refusing R.T. treatments. R.T.Funmilayo, further states pt, sounds wet as though fluid overloaded. Reviewed emar with R.T. Encouraged R.T. to discuss with who is in hospitalist room. R.T. reports back to this automatic typewriter inspector that this conversation did take place with Dr. Lin. Per rowan BRITO, unable to complete barium swallow d/t pt's size (pt was unable to fit in imaging device per report). This automatic typewriter inspector infomed Dr. Lin of this. Pt requests waffle cushion under buttocks in bed and this was done utilizing mechanical lift. Educated pt on need for sputum specimen and cup provided. Per R.T., pt's 02 was increased to 2.5 liters as states pt is on this at home. Continuous pulse oximeter in place measuring 95%. Pt explains to this automatic typewriter inspector has significant lung pain and back pain with coughing triggered by R.T. treatments and states this is why keeps declining. Informed pt plan to keep pain meds available on schedule and encouraged pt to request treatment as pt acknowledges knows this would be good for me. Pt does report good pain relief with vicodin.
--- NOTE | 2018-09-21 18:06 | OT.IP.EVAL ---
Current Diagnoses Benign neoplasm of meninges, unspecified (09/20/18) Type 2 diabetes mellitus without complications (09/20/18) Morbid (severe) obesity due to excess calories (09/20/18) Essential (primary) hypertension (09/20/18) Heart failure, unspecified (09/20/18) Chronic obstructive pulmonary disease with (acute) exacerbation (09/20/18) Chronic obstructive pulmonary disease, unspecified (09/20/18) Pneumonitis due to inhalation of food and vomit (09/20/18) Acute and chronic respiratory failure, unspecified whether with hypoxia or hypercapnia (09/20/18) Past Medical History (Last Updated 09/20/18 @ 17:17 by Jena Mena MD) Hypoxia (Acute) Meningioma (Acute) Diabetes (Acute) Morbidly obese (Acute) COPD (chronic obstructive pulmonary disease) (Acute) Hypertension (Acute) Chronic respiratory failure (Acute) History of congestive heart failure (Acute) Surgical History (Last Reviewed 05/27/18 @ 14:01 by Ángela Worthington MD) Status post appendectomy (Acute) Status post cholecystectomy (Acute) Occupational Therapy Inpatient Evaluation/Re-Eval M2 OT-IP Current Condition Start: 09/21/18 17:51 Freq: Status: Active Protocol: Document 09/21/18 13:40 [facility] (Rec: 09/21/18 18:06 [facility] [id number]) Occupational Therapy Current Condition Current Condition Evaluation Date 09/21/18 Treatment Diagnosis Acute respiratory failure, COPD exacerbation Diagnosis Onset Date 09/20/18 Weight Bearing Status Weight Bearing Status Weight Bear as Tolerated M3 OT- IP Subjective and Pain Start: 09/21/18 17:51 Freq: Status: Active Protocol: Document 09/21/18 13:40 [facility] (Rec: 09/21/18 18:06 [facility] [id number]) OT- Subjective Occupational Therapy Visit Type Type Initial Evaluation Visit Start Time 13:40 Visit Stop Time 14:19 Total Visit Minutes 39 Occupational Therapy Visit Comments Patient Comments Pt cooperative and pleasant. Patient/Caregiver Goals Pt would like to go home but open to going to rehab if needed, and pending what her doctor suggests. OT Pain Assessment Pain When Pain Assessed At Rest Pain Present Pain Present Pain Reported Location Back/Lungs Intensity 7 Scale Used Numeric (1 - 10) M4 OT- IP ADL's Start: 09/21/18 17:51 Freq: Status: Active Protocol: Document 09/21/18 13:40 [facility] (Rec: 09/21/18 18:06 [facility] [id number]) OT UDS-Nzel-Cgtdfwi General Evaluation Self-Feeding Ability Standby Assistance Areas Needing Assistance Opening Containers Comments OT Self-Feeding Comments Pillow placed under her elbow to provide support to help increase ease to eat. OT ADL-Dressing General Eval Lower Body Dressing Ability Maximum Assistance Areas Needing Assistance Socks M5 OT- IP IADL's Start: 09/21/18 17:51 Freq: Status: Active Protocol: Document 09/21/18 13:40 [facility] (Rec: 09/21/18 18:06 [facility] [id number]) OT-Instrumental Activities of Daily Living Medication Management Medication Management Caregiver Administers Money Management Money Management Caregiver Provides Supervision Meal Preparation Meal Preparation Caregiver Provides Assist Comic Book Artist Comic Book Artist Caregiver Provides Assist M6 OT- IP Functional Cognition Start: 09/21/18 17:51 Freq: Status: Active Protocol: Document 09/21/18 13:40 [facility] (Rec: 09/21/18 18:06 [facility] [id number]) Cognitive Factors Limiting Selfcare Function Cognitive Ability Level of Alertness Alert Patient Orientation Name Place Situation Attention Span Ability Capable of Focused Attention Capable of Sustained Attention Ability to Follow Commands Able to Follow One Step Commands Cognitive Comments Cognitive Assessment Comments Mainly just seen for transfer and self feeding to continue to assess for cognitive needs. OT- Vision and Hearing OT- Hearing Assessment OT- Hearing Assessment WFL M7 OT- IP Mobility and Balance Start: 09/21/18 17:51 Freq: Status: Active Protocol: Document 09/21/18 13:40 [facility] (Rec: 09/21/18 18:06 [facility] [id number]) OT- Bed Mobility Assessment Sit to Supine Sit to Supine Assist Maximum Assistance 2 Person Assistance OT-Transfer Assessment Sit to and From Stand Sit to and from Stand Moderate Assistance 2 Person Assistance Transfers Transfer Ability Moderate Assistance 2 Person Assistance Technique Transfer Destination Bed Chair Transfer Technique Stand Step Pivot Devices Transfer Assistive Devices Gait Belt Front Wheeled Walker Comments Mobility Comments MAX A X 2for bed mobilty needs and MODA x 2 with FWW for transfer at this time. O2 on 4L initially at 99% and nurse came in and decreased to 2L and O2 on 96% while self feeding. M8 OT- IP Objective Assessments Start: 09/21/18 17:51 Freq: Status: Active Protocol: Document 09/21/18 13:40 [facility] (Rec: 09/21/18 18:06 [facility] [id number]) OT Gross Range of Motion Upper Extremity Range of Motion Assessment Bilaterally Impaired OT Strength Comments Strength Comments BUE 3-/5 to 3+/5 from proximal to distal. M9 OT- IP Assessment and Plan Start: 09/21/18 17:51 Freq: Status: Active Protocol: Document 09/21/18 13:40 [facility] (Rec: 09/21/18 18:06 [facility] [id number]) OT Summary Assessment and Plan Potential Rehabilitation Potential Good Analytic Complexity at Evaluation Low Summary OT Impairments Pain Range of Motion Strength Balance Functional Cognition Functional Mobility Grooming Dressing Toileting Bathing Toilet Transfers Shower Transfers Progress Towards Goals Slow Progress due to Pain Slow Progress due to Medical Issues Slow Progress due to Activity Tolerance Assessment Summary Pt low complexity and main barrier are step to get into the house, decreased activity tolerance,strength, and endurance and now needing two person assist for functional mobility and ADl needs. pending pt's progress and family's ability to provide enough assist for, pt need to go to skilled rehab versus home with assist and HH. Goals Grooming Goal Standby Assistance Dressing Goal Moderate Assistance Toileting Goal Moderate Assistance Bathing Goal Moderate Assistance Toilet Transfer Goal Minimal Assistance Shower Transfer Goal Moderate Assistance Patient/Caregiver Education Goal Demonstrate Energy Conservation and Pacing Caregiver Independent Assisting Patient Days to Meet Goals 10 Frequency of Treatment Frequency Of Treatment Once a Day Treatment Plan OT Treatment Plan ADL Training Functional Cognition Training Functional Mobility Patient/Family Education Discharge Planning Other Treatment Recommendations and Next Stand from recliner to sink Treatment Focus for grooming needs. Transfer [place] [facility] with MODA x 1 and FWW. Discharge Recommendations OT Discharge Recommendations SNF Rehab Other Discharge Recommendations Pending progress and caregiver training possible home with assist and HH.
[2018-09-21 18:54] LABS: Vancomycin Trough 23.6 ug/mL (10-20)
[2018-09-21] MEDS: SODIUM CHLORIDE 0.9% FLUSH 10 ML IV (19:44)
[2018-09-21] MEDS: SENNOSIDES 8.6 MG TABLET 17.2 MG PO (20:16)
[2018-09-21] MEDS: INSULIN GLARGINE 100 UNIT/ML 3ML PEN 15 UNIT SUBCUT (20:22)
[2018-09-22] VITALS (16 sets, daily range): BP systolic 127–161; BP diastolic 64–88; PULSE 67–94; RESP 18–22; TEMP 36.2–37.2; O2SAT 92–100
[2018-09-22] MEDS: HYDROCODONE/ACET 5/325 TABLET 1 TAB PO ×5 (00:06→16:00)
[2018-09-22] MEDS: ALBUTEROL 2.5 MG/3 ML NEB (ADULT) INH (03:34)
[2018-09-22] MEDS: MEROPENEM 1 GM in SODIUM CHLORIDE 0.9% 100 ML 200 ML IV (04:10)
[2018-09-22] MEDS: MUPIROCIN 22 GM OINT 1 APPLIC TOP ×2 (05:00→20:06)
[2018-09-22 05:33] LABS: Add Manual Diff / Slide Review NO; Basophils Absolute Auto 100 /uL (0-100); Basophils Percent Auto 0.7 % (0-2); Eosinophils Absolute Auto 0 /uL (0-450); Eosinophils Percent Auto 0.2 % (2-4); Hemoglobin 8.8 g/dL (12.0-16.0); Lymphocytes Absolute Auto 1300 /uL (1100-4500); Lymphocytes Percent Auto 18.5 % (25-40); Mean Corpuscular HGB Conc 32.6 % (30-36); Mean Corpuscular Hemoglobin 26.4 PG (26-34); Mean Corpuscular Volume 80.9 fL (80-100); Monocytes Absolute Auto 600 /uL (0-900); Monocytes Percent Auto 7.9 % (3-14); Neutrophils Absolute Auto 5200 /uL (1500-7000); Neutrophils Percent Auto 72.7 % (50-75); Platelet Count 275 X10^3/uL (150-400); Red Blood Cell Count 3.34 X10^6/uL (4.0-5.2); Red Cell Distribution Width 17.9 % (11.6-14.8); White Blood Cell Count 7.1 X10^3/uL (4.5-11.0)
[2018-09-22 05:45] LABS: BUN Creatinine Ratio 24.4 (6-22); Blood Urea Nitrogen 22 mg/dL (7-17); Calcium 9.4 mg/dL (8.4-10.2); Carbon Dioxide 38 mmol/L (22-32); Chloride 93 mmol/L (98-107); Estimated Glomerular Filt Rate > 60.0 mL/min (>60); Glucose 118 mg/dL (70-100); HEMOLYSIS < 15 (0-50); Potassium 3.3 mmol/L (3.4-5.1); Sodium 138 mmol/L (137-145)
[2018-09-22] MEDS: SODIUM CHLORIDE 0.9% FLUSH 10 ML IV ×2 (06:52→20:07)
[2018-09-22] MEDS: POTASSIUM CHLORIDE 40 MEQ in SODIUM CHLORIDE 0.9% 500 ML 130 ML IV (06:52)
[2018-09-22] MEDS: LOSARTAN 50 MG TABLET 100 MG PO (08:24)
[2018-09-22] MEDS: predniSONE 20 MG TABLET 40 MG PO (08:24)
[2018-09-22] MEDS: POTASSIUM CHLORIDE 10 MEQ TAB PO (08:24)
[2018-09-22] MEDS: CARVEDILOL 25 MG TABLET PO ×2 (08:25→20:06)
[2018-09-22] MEDS: AMLODIPINE 5 MG TABLET 10 MG PO (08:25)
[2018-09-22] MEDS: DOCUSATE 100 MG CAPSULE PO ×2 (08:25→20:06)
[2018-09-22] MEDS: levETIRAcetam 250 MG TABLET 500 MG PO ×2 (08:25→20:06)
[2018-09-22] MEDS: FUROSEMIDE 40 MG TABLET PO ×2 (08:25→20:06)
[2018-09-22] MEDS: HYDRALAZINE 25 MG TABLET PO ×3 (08:26→20:06)
[2018-09-22] MEDS: NYSTATIN POWDER 30 GM 1 APPLIC TOP ×2 (08:26→20:07)
--- NOTE | 2018-09-22 08:52 | PC.NURSE ---
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 Pt did state she had an episode of hallucinations yesterday AM (09/21) when waking up. States the room was sideways and the wall clock was on the floor beside her bed. This was a non frightening episode, stating it was strange. She closed her eyes and opened them again and the room was back to normal. Dr. Walker aware and primary RN aware
[2018-09-22] MEDS: VANCOMYCIN 200 ML 200 MG IV ×2 (09:51→21:05)
[2018-09-22] MEDS: MEROPENEM 1 GM/50 ML PIGGYBACK IV ×2 (11:19→20:04)
--- NOTE | 2018-09-22 11:25 | CM.DPC ---
DCP/continued: Reviewed chart. Per /Dr. Walker in AM rounds it is expected that patient will remain hospitalized for the next 24-48hrs. Therapy currently recommends SNF. If SNF needed at time of d/c authorization will need to be obtained from [place]/. Met briefly with patient to discuss plan. Patient reports that she would prefer to be well enough at time of d/c to go home. Patient on service with [facility]. Patient reports that she walked to hospital room door today with FWW and 02. Patient uses both at baseline. She hopes to continue to improve. At baseline, patient reports that she does not go much farther than she did today. CARD DOFFER asked patient about the possibility of SNF? Patient not sure if she would want to return to [facility]. Also patient does not want to commit to SNF but will remain open if absolutely needed. Notified patient that CM team will continue to follow closely because if SNF decided will need authorization. P: Home with [facility] with [facility] vs. SNF. If SNF needed authorization will need to be obtained and patient will need to meet criteria. Patient reports that her mobility is close to baseline. LISSETT Del Toro
--- NOTE | 2018-09-22 11:30 | PT.IPTN ---
Current Diagnoses Benign neoplasm of meninges, unspecified (09/20/18) Type 2 diabetes mellitus without complications (09/20/18) Morbid (severe) obesity due to excess calories (09/20/18) Essential (primary) hypertension (09/20/18) Heart failure, unspecified (09/20/18) Chronic obstructive pulmonary disease with (acute) exacerbation (09/20/18) Chronic obstructive pulmonary disease, unspecified (09/20/18) Pneumonitis due to inhalation of food and vomit (09/20/18) Acute and chronic respiratory failure, unspecified whether with hypoxia or hypercapnia (09/20/18) Physical Therapy Treatment Note M2 PT-IP Current Condition Start: 09/21/18 14:18 Freq: NEEDED Status: Active Protocol: Document 09/21/18 13:15 [facility] (Rec: 09/21/18 14:41 [facility] [id number]) Physical Therapy Current Condition Current Condition Evaluation Date 09/21/18 Treatment Diagnosis PNA; COPD; difficulty in walking Onset Date 09/20/18 Precautions Other Precautions O2 sat : O2 at 4L/min at this time M3 PT-IP Subjective Start: 09/21/18 14:18 Freq: NEEDED Status: Active Protocol: Document 09/22/18 11:30 [facility] (Rec: 09/22/18 12:15 [facility] [id number]) Subjective Physical Therapy Visit Type Type Treatment Note Visit Start Time 11:16 Visit Stop Time 11:42 Total Visit Minutes 26 Number of STITCHING MACHINE FEEDER OR OFFBEARER Visits 0 Physical Therapy Visit Comments Patient Comments Pt wants to be able to ambulate in room. M4 PT-IP Mobility and Gait Start: 09/21/18 14:18 Freq: NEEDED Status: Active Protocol: Document 09/22/18 11:30 [facility] (Rec: 09/22/18 12:15 [facility] [id number]) PT-Transfer Assessment Sit to and From Stand Sit to and from Stand Minimal Assistance 1 Person Assistance Use of Upper Extremities Equipment Transfer Assistive Device Gait Belt Front Wheeled Walker Orthotic/Prosthetic Devices or Brace: No Transfers Transfer Destination Chair Transfer Technique Stand Step Pivot Transfer Ability Level of Assist Minimal Assistance 1 Person Assistance Use of Upper Extremities Comments Mobility Comments 2nd assist for chair follow Gait Assessment Gait Gait Assistance Required: Contact Guard Assist Distance (Feet) 20 Assistive Devices Assistive Device Gait Belt Front Wheeled Walker Gait Deviations General Gait Pattern Antalgic Decreased Stride Length Decreased Feet Clearance Flexed Trunk Wide Based Gait Factors Limiting Gait Function Factors Limiting Gait Function Decreased Activity Tolerance Decreased Strength Poor Balance Respiratory Distress Comments Gait Comments O2 saturation 88-94% during mobility on 3L M5 PT-IP Objective Assessments Start: 09/21/18 14:18 Freq: NEEDED Status: Active Protocol: Document 09/21/18 13:15 [facility] (Rec: 09/21/18 14:41 AB [id number]) Orientation Orientation/Cognition Level of Alertness Alert Orientation Name Age Birthday Month Date Year Day of Week Place Situation Language Function Ability Hard of Hearing Safety Awareness Decreased Safety Awareness Gross Range of Motion Lower Extremity ROM Assessment Within Functional Limits Strength Lower Extremity Strength Assessment Bilaterally Impaired Comments Strength Comments LLE: 4-/5 RLE: 3+/5 M6 PT-IP Treatment Start: 09/21/18 14:18 Freq: NEEDED Status: Active Protocol: Document 09/21/18 13:15 AB (Rec: 09/21/18 14:41 AB [id number]) Physical Therapy Treatment Education Education Provided Safety M7 PT-IP Assessment and Plan Start: 09/21/18 14:18 Freq: NEEDED Status: Active Protocol: Document 09/22/18 11:30 [facility] (Rec: 09/22/18 12:15 [facility] [id number]) PT Summary Assessment and Plan Summary Assessment Summary Pt able to ambulate short distance in room this morning, with close CGA with mild respiratory distress, but mostly limited by LE fatigue. Pt will need to be able to tolerate up/down one step and progress her gait distance for consideration of d/c home, but she is not yet at the safe level to be able to return home as of this session. Goals Bed Mobility Goal Standby Assistance Transfer Goal Standby Assistance Front Wheeled Walker Gait Goal Contact Guard Assistance Front Wheel Walker Gait Distance 50 Other Goals up/down 1 step to enter CGA Days to Meet Goals 10 Frequency of Treatment Frequency Of Treatment Once a Day Treatment Plan Other Recommendations and Next Treatment gait, step up/down 1 step with Focus walker Recommendations To Nursing Amount of Assist Needed 2 Person Assist Discharge Recommendations PT Discharge Recommendations SNF Rehab Equipment Needed for Home Before FWW if not safe with 4WW Discharge
[2018-09-22] MEDS: INSULIN ASPART 100 UNIT/ML INSULN PEN SUBCUT ×3 (11:43→21:14)
--- NOTE | 2018-09-22 11:55 | PM.PN.1 ---
Subjective Date Patient Seen: 09/22/18 Interval history: Rocío Enriquez is a 57-year-old female with a past medical history significant for hypertension, diabetes mellitus type 2, insulin using, COPD with chronic respiratory failure on 2 L of oxygen, morbid obesity, meningioma who was recently hospitalized at [facility] for pneumonia and discharged on levofloxacin who presented for worsening upper respiratory symptoms including shortness of breath, productive cough, increased swelling of her lower extremities, and generalized malaise. The patient is sleeping in bedside chair comfortably. She arouses easily to stimulation. She reports her breathing has much improved. She continues to have pleuritic chest pain related to coughing with little improvement. She reports that using the Acapella hurts and she has been using it very little. She has very little air movement on clinical exam and chest is quite tight. She endorses fatigue but otherwise has no complaints and denies headache, chest pain, shortness of breath, abdominal pain, nausea, vomiting, fever, chills, dysuria, diarrhea or constipation. She is voiding via bassett cathether. She has not had a bowel movement since admission and a bowel regimen has been implemented. She is up ambulating minimally and requiring a significant amount of assistance. She is working with PT and OT. Exam Vital Signs (past 8 hours): - 09/22/18 07:46 09/22/18 08:00 09/22/18 09:50 Temperature 99.0 F Pulse Rate 76 70 Respiratory Rate 22 Blood Pressure 127/78 136/73 Pulse Oximetry 96 92 09/22/18 11:40 Temperature 97.1 F L Pulse Rate 70 Respiratory Rate 22 Blood Pressure 128/64 Pulse Oximetry 97 Fraction of Inspired Oxygen 2 Oxygen Delivery Method Nasal Cannula Oxygen Flow Rate 3 Narrative Exam Narrative: General: Middle aged female sleeping in bedside chair comfortbaly and in no acute distress, appears older than stated age, well-developed, well-nourished, mildly somnolent but appropriately interactive. HEENT: Normocephalic, atraumatic. External ears without defect. Pupils equal, round, and reactive to light. Anicteric sclerae, moist conjunctivae, and no lid lag. Neck: Supple with full range of motion. No JVD. No lymphadenopathy or thyromegaly. Cardiovascular: Regular rate and rhythm without murmurs, rubs, or gallops appreciated. Pulmonary: Diminished throughout and significantly tight with scattered crackle. Normal respiratory effort with no use of accessory muscles. Abdomen: Soft, obese, bowel sounds present, nontender, nondistended. No hepatosplenomegaly or masses appreciated. Extremities: No clubbing, cyanosis, or edema. Skin: Normal temperature, turgor, and texture; no rash, ulcers, or subcutaneous nodules appreciated. Neurological: Cranial nerves grossly intact. Psychiatric: Depressed mood and normal affect. Alert and oriented to person, place, and time. Objective Labs Result Diagrams: 09/23/18 05:10 09/23/18 05:10 Labs: Laboratory Results - last 24 hr 09/21/18 09/21/18 09/22/18 05:10 17:30 05:06 WBC 7.1 RBC 3.34 L Hgb 8.8 L Hct 27.0 L MCV 80.9 MCH 26.4 MCHC 32.6 RDW 17.9 H Plt Count 275 Neut % (Auto) 72.7 Lymph % (Auto) 18.5 L Perry % (Auto) 7.9 Eos % (Auto) 0.2 L Baso % (Auto) 0.7 Neut # (Auto) 5200 Lymph # (Auto) 1300 Perry # (Auto) 600 Eos # (Auto) 0 Baso # (Auto) 100 Sodium Potassium Chloride Carbon Dioxide BUN Creatinine Estimated GFR BUN/Creatinine Ratio Glucose Calcium B-Natriuretic Peptide < 100 Vancomycin Trough 23.6 H* 09/22/18 05:06 WBC RBC Hgb Hct MCV MCH MCHC RDW Plt Count Neut % (Auto) Lymph % (Auto) Perry % (Auto) Eos % (Auto) Baso % (Auto) Neut # (Auto) Lymph # (Auto) Perry # (Auto) Eos # (Auto) Baso # (Auto) Sodium 138 Potassium 3.3 L Chloride 93 L Carbon Dioxide 38 H BUN 22 H Creatinine 0.90 Estimated GFR > 60.0 BUN/Creatinine Ratio 24.4 H Glucose 118 H Calcium 9.4 B-Natriuretic Peptide Vancomycin Trough Assessment & Plan Assessment & Plan narrative: Rocío Enriquez is a 57-year-old female with a past medical history significant for hypertension, diabetes mellitus type 2, insulin using, COPD with chronic respiratory failure on 2 L of oxygen, morbid obesity, meningioma who was recently hospitalized at [facility] for pneumonia and discharged on levofloxacin who presented for worsening upper respiratory symptoms including shortness of breath, productive cough, increased swelling of her lower extremities, and generalized malaise. 1. Acute on chronic hypoxemic and hypercarbic respiratory failure, present on admission. Active. -Patient presented with progressive shortness of breath. -Patient is on 2.5 L of continuous supplemental oxygen chronically. Initially required 3 L of supplemental oxygen but now back to baseline oxygen requirement. -Continue respiratory therapy evaluation treatment. Continue DuoNebs every 4 hours while awake and albuterol nebs every 2 hours as needed for shortness of breath. 2. Acute COPD exacerbation, present on admission. Active. -Continue prednisone 40 mg daily x 5 days. -Continue respiratory therapy evaluation treatment. Continue duo nebs every 4 hours while awake and albuterol nebs every 2 hours as needed for shortness of breath. -Ordered Mucinex 1200 mg twice daily to thin mucous secretions and Sudafed 60 mg twice daily to decrease congestion. 3. Healthcare associated pneumonia versus aspiration pneumonia, present on admission. Active. -Patient was recently hospitalized at [facility] for pneumonia and discharged on Levaquin which she failed. -Patient may have aspirated as she admited to choking on food periodically. She passed a bed side swallow eval by but unfortunately cannot pursue an MBS to assess for silent aspiration due to patients body hbitus she does not fit the equipment. Continue aspiration precautions. -Complete pneumonia workup performed including: Respiratory viral PCR negative. Strep pneumoniae and Legionella urine antigens pending. Sputum culture pending. Blood culture not perfromed. -Chest xray demonstrated increased bibasilar and left upper lobe patchy consolidative opacities which could represent pneumonia versus atelectasis and or aspiration since 09/13/18. -Initial WBC 12.2 and has trended down. PCT <0.05. -Continue vancomycin with dosing per pharmacist and meropenem 1 g every 8 hours to cober MRSA, gram positive, gram negative and anaerobes. 4. Possible acute diastolic congestive heart failure exacerbation, present on admission. Active. -Chest xray demonstrated possible superimposed pulmonary edema. -Previous echocardiogram 09/08/18 demonstrated normal LV size and function with EF 60-65%, no significant valvular abnormalities, and unobtainable diastolic assessment due to body habitus. -Continue home Lasix 40 mg twice daily, carvedilol 25 mg twice daily and losartan 100 mg daily. -Continue strict I&O and daily weights. Net -3 L 5. Hypertension, chronic, present on admission. Stable. -Continue carvedilol 25 mg twice daily, amlodipine 10 mg daily, and losartan 100 mg daily. 6. Diabetes mellitus type 2, insulin using, chronic, present on admission. Stable. -Ordered hemoglobin A1c, pending. -Continue Lantus 15 units increased to twice daily for better glycemic control. -Continue ACHS glucose checks and medium dose correctional scale insulin. 7. Meningioma, chronic, present on admission. Stable. -Presumably stable and not related to current symptoms. Neurosurgical outpatient evaluation is in process. -Continue Keppra 500 mg twice daily for seizure prophylaxis. 8. Morbid obesity, present on admission. Stable. -BMI 46.4. -Discussed lifestyle modification in detail including: Diet and exercise (unrealistic for patient to perform much exercise due to physical debility/generalized weakness). 9. Probable situational vs major depression, present on admission. Active. -Patient has very little motivation. She has been hospitalized repeatedly over the last several months which is likely a driving factor in situation vs major depression. -Patient refuses to take antidepressants as she had a that was majorly depressed. Recommended counseling,specifically cognitive behavioral therapy. Disposition: Patient likely to discharge in several days to snf facility for continued rehabilitation once she has improved with treatment for pneumonia.
--- NOTE | 2018-09-22 11:57 | PC.NURSE ---
Day shift: Pt has been in chair in room and tolerating well. Has fallen asleep and easy to awake. At approx 1100 Pt c/o chest kvng. Stat EKG done and MD notified. Pt denies any chest pain at this time and stated probably just gas. She does report some flatus. Pt also has been OOB with PT and REGISTERED NURSE AMBULATORY. Was able to ambulate in room and tolerated well. Making needs known. BAck pain present and medicated per JUN. Remains HFR. Call light in reach.
[2018-09-22] MEDS: PSEUDOEPHEDRINE 30 MG TABLET 60 MG PO (16:50)
--- NOTE | 2018-09-22 16:55 | OT.IP.TRT ---
Current Diagnoses Benign neoplasm of meninges, unspecified (09/20/18) Type 2 diabetes mellitus without complications (09/20/18) Morbid (severe) obesity due to excess calories (09/20/18) Essential (primary) hypertension (09/20/18) Heart failure, unspecified (09/20/18) Chronic obstructive pulmonary disease with (acute) exacerbation (09/20/18) Chronic obstructive pulmonary disease, unspecified (09/20/18) Pneumonitis due to inhalation of food and vomit (09/20/18) Acute and chronic respiratory failure, unspecified whether with hypoxia or hypercapnia (09/20/18) Occupational Therapy Treatment Note M2 OT-IP Current Condition Start: 09/21/18 17:51 Freq: Status: Active Protocol: Document 09/21/18 13:40 CCC (Rec: 09/21/18 18:06 CCC [email or web address]) Occupational Therapy Current Condition Current Condition Evaluation Date 09/21/18 Treatment Diagnosis Acute respiratory failure, COPD exacerbation Diagnosis Onset Date 09/20/18 Weight Bearing Status Weight Bearing Status Weight Bear as Tolerated M3 OT- IP Subjective and Pain Start: 09/21/18 17:51 Freq: Status: Active Protocol: Document 09/22/18 16:49 CGR (Rec: 09/22/18 16:54 CGR [id number]) OT- Subjective Occupational Therapy Visit Type Type Treatment Note Visit Start Time 14:25 Visit Stop Time 15:05 Total Visit Minutes 40 Occupational Therapy Visit Comments Patient Comments I was really upset with the way the doctor spoke to me today about my weight and eating habits. OT Pain Assessment Pain When Pain Assessed At Rest Pain Present Pain Present Pain Reported Location Back Intensity 5 Scale Used Numeric (1 - 10) M4 OT- IP ADL's Start: 09/21/18 17:51 Freq: Status: Active Protocol: Document 09/22/18 16:49 CGR (Rec: 09/22/18 16:54 CGR [id number]) OT ADL-Grooming General Evaluation Grooming Ability Standby Assistance Areas Needing Assistance Retrieving/Set-up of Grooming Items Combing/Brushing Hair Face Washing Comments OT Grooming Comments Seated in chair at sink OT ADL-Oral Care General Eval Oral Care Ability Standby Assistance Areas of Assistance Brushing Teeth Comments Oral Care Comments Performed seated in chair at sink. M5 OT- IP IADL's Start: 09/21/18 17:51 Freq: Status: Active Protocol: Document 09/21/18 13:40 [facility] (Rec: 09/21/18 18:06 [facility] [id number]) OT-Instrumental Activities of Daily Living Medication Management Medication Management Caregiver Administers Money Management Money Management Caregiver Provides Supervision Meal Preparation Meal Preparation Caregiver Provides Assist Vinegar Maker Vinegar Maker Caregiver Provides Assist M6 OT- IP Functional Cognition Start: 09/21/18 17:51 Freq: Status: Active Protocol: Document 09/21/18 13:40 [facility] (Rec: 09/21/18 18:06 [facility] [email or web address]) Cognitive Factors Limiting Selfcare Function Cognitive Ability Level of Alertness Alert Patient Orientation Name Place Situation Attention Span Ability Capable of Focused Attention Capable of Sustained Attention Ability to Follow Commands Able to Follow One Step Commands Cognitive Comments Cognitive Assessment Comments Mainly just seen for transfer and self feeding to continue to assess fro cognitive needs. OT- Vision and Hearing OT- Hearing Assessment OT- Hearing Assessment WFL M7 OT- IP Mobility and Balance Start: 09/21/18 17:51 Freq: Status: Active Protocol: Document 09/22/18 16:49 CGR (Rec: 09/22/18 16:54 CGR [email or web address]) OT-Transfer Assessment Comments Mobility Comments Pt motivated to stand at sink for some or all of ADLs but upon first attempt to stand pt states pinching to her back and requested to perform ADLs seated. OT- Balance Assessment Sitting Balance and Reactions Static Sitting Balance Ability Normal Dynamic Sitting Balance Ability Normal M8 OT- IP Objective Assessments Start: 09/21/18 17:51 Freq: Status: Active Protocol: Document 09/21/18 13:40 [facility] (Rec: 09/21/18 18:06 [facility] [email or web address]) OT Gross Range of Motion Upper Extremity Range of Motion Assessment Bilaterally Impaired OT Strength Comments Strength Comments BUE 3-/5 to 3+/5 from proximal to distal. M9 OT- IP Assessment and Plan Start: 09/21/18 17:51 Freq: Status: Active Protocol: Document 09/22/18 16:49 CGR (Rec: 09/22/18 16:54 CGR [id number]) OT Summary Assessment and Plan Potential Rehabilitation Potential Good Analytic Complexity at Evaluation Low Summary OT Impairments Pain Range of Motion Strength Balance Functional Cognition Functional Mobility Grooming Dressing Toileting Bathing Toilet Transfers Shower Transfers Progress Towards Goals Slow Progress due to Pain Slow Progress due to Medical Issues Slow Progress due to Activity Tolerance Assessment Summary Pt appeared motivated on this date but became emotional during session regarding the discussion she had with the doctor earlier. Pt states she is doing the diet that has been perscribed to her and she has been losing weight. Discussed with pt at length and pt stated appreciation for allowing her to talk. Pt left sittign up in chair at end of session, call button within reach and all needs at time met. Goals Grooming Goal Standby Assistance Dressing Goal Moderate Assistance Toileting Goal Moderate Assistance Bathing Goal Moderate Assistance Toilet Transfer Goal Minimal Assistance Shower Transfer Goal Moderate Assistance Patient/Caregiver Education Goal Demonstrate Energy Conservation and Pacing Caregiver Independent Assisting Patient Days to Meet Goals 9 Frequency of Treatment Frequency Of Treatment Once a Day Treatment Plan OT Treatment Plan ADL Training Functional Cognition Training Functional Mobility Patient/Family Education Discharge Planning Other Treatment Recommendations and Next Stand from recliner to sink Treatment Focus for grooming needs. Transfer to [facility] with MODA x 1 and FWW. Discharge Recommendations OT Discharge Recommendations SNF Rehab Other Discharge Recommendations Pending progress and caregiver training possible home with assist and HH.
[2018-09-22] MEDS: ENOXAPARIN 40 MG/0.4 ML SYRINGE SUBCUT (18:36)
[2018-09-22 18:40] LABS: Magnesium 1.9 mg/dL (1.6-2.3)
[2018-09-22] MEDS: SENNOSIDES 8.6 MG TABLET 17.2 MG PO (20:07)
[2018-09-22] MEDS: guaiFENesin ER 600 MG TAB 1200 MG PO (20:07)
[2018-09-22] MEDS: INSULIN GLARGINE 100 UNIT/ML 3ML PEN 15 UNIT SUBCUT (21:14)
[2018-09-23] VITALS (16 sets, daily range): BP systolic 141–195; BP diastolic 72–97; PULSE 74–92; RESP 16–26; TEMP 36.2–36.9; O2SAT 90–96
[2018-09-23] MEDS: HYDROCODONE/ACET 5/325 TABLET 1 TAB PO ×5 (00:19→17:51)
[2018-09-23] MEDS: MEROPENEM 1 GM/50 ML PIGGYBACK IV ×3 (04:19→20:09)
[2018-09-23 05:27] LABS: Add Manual Diff / Slide Review NO; Basophils Absolute Auto 100 /uL (0-100); Eosinophils Absolute Auto 0 /uL (0-450); Eosinophils Percent Auto 0.2 % (2-4); Hematocrit 30.5 % (36-46); Hemoglobin 9.7 g/dL (12.0-16.0); Lymphocytes Absolute Auto 1300 /uL (1100-4500); Lymphocytes Percent Auto 17.2 % (25-40); Mean Corpuscular HGB Conc 31.9 % (30-36); Mean Corpuscular Hemoglobin 25.8 PG (26-34); Mean Corpuscular Volume 80.9 fL (80-100); Monocytes Absolute Auto 500 /uL (0-900); Neutrophils Absolute Auto 5600 /uL (1500-7000); Neutrophils Percent Auto 74.6 % (50-75); Platelet Count 319 X10^3/uL (150-400); Red Blood Cell Count 3.78 X10^6/uL (4.0-5.2); Red Cell Distribution Width 17.6 % (11.6-14.8); White Blood Cell Count 7.5 X10^3/uL (4.5-11.0)
[2018-09-23 05:39] LABS: Alanine Aminotransferase 29 IU/L (9-52); Albumin 3.8 g/dL (3.5-5.0); Albumin Globulin Ratio 1.1 (1.0-2.8); Alkaline Phosphatase 83 U/L (38-126); Aspartate Aminotransferase 14 IU/L (14-36); BUN Creatinine Ratio 31.7 (6-22); Bilirubin Total 0.4 mg/dL (0.2-1.3); Blood Urea Nitrogen 19 mg/dL (7-17); Calcium 9.6 mg/dL (8.4-10.2); Chloride 95 mmol/L (98-107); Estimated Glomerular Filt Rate > 60.0 mL/min (>60); Globulin 3.5 g/dL (1.7-4.1); Glucose 151 mg/dL (70-100); HEMOLYSIS < 15 (0-50); Magnesium 1.7 mg/dL (1.6-2.3); Potassium 3.3 mmol/L (3.4-5.1); Sodium 139 mmol/L (137-145); Total Protein 7.3 g/dL (6.3-8.2)
[2018-09-23 05:43] LABS: Hemoglobin A1C% w Est Avg Glu 6.2 % (4.0-6.0)
[2018-09-23 05:56] LABS: Procalcitonin < 0.05 ng/mL (<0.5)
[2018-09-23 06:06] LABS: Carbon Dioxide 40 mmol/L (22-32)
--- NOTE | 2018-09-23 06:12 | PC.NURSE ---
[facility] [employer] notified about abnormal lab values of CO2 40 at 0613
[2018-09-23] MEDS: ENOXAPARIN 40 MG/0.4 ML SYRINGE SUBCUT ×2 (06:27→17:07)
[2018-09-23] MEDS: ALBUTEROL 2.5 MG/3 ML NEB (ADULT) INH ×3 (07:55→15:05)
--- NOTE | 2018-09-23 08:00 | DI.RAD.S_ITS ---
PROCEDURE: XR CHEST 1V INDICATIONS: previous HCAP vs aspiration PNA, pulmonary edema TECHNIQUE: One view of the chest was acquired. COMPARISON: [facility], CR, XR CHEST 2V, 09/20/2018, 9:48. FINDINGS: Surgical changes and devices: None. Lungs and pleura: Mild improvement in the aeration of the left lung is evident. Previously seen area of consolidation within the left upper lobe has largely resolved. However, the left diaphragm is obscured by a mild pulmonary consolidation. Interstitial prominence within the bilateral perihilar regions are present. There is no large effusion or pneumothorax. Mediastinum: Mediastinal contours appear normal. Heart size is enlarged. Bones and chest wall: No suspicious bony lesions. Overlying soft tissues appear unremarkable. IMPRESSION: 1. Cardiomegaly with associated vascular congestion is more pronounced on the current study, suggesting developing pulmonary edema. 2. Interval resolution of previously seen left upper lobe consolidation. There may be mild residual left basilar atelectasis. Dictated by: Santino Anton M.D. on 09/23/2018 at 7:43 Approved by: Santino Anton M.D. on 09/23/2018 at 7:45
[2018-09-23] MEDS: INSULIN ASPART 100 UNIT/ML INSULN PEN SUBCUT ×4 (09:00→20:29)
[2018-09-23] MEDS: CARVEDILOL 25 MG TABLET PO ×2 (09:01→20:21)
[2018-09-23] MEDS: AMLODIPINE 5 MG TABLET 10 MG PO (09:01)
[2018-09-23] MEDS: DOCUSATE 100 MG CAPSULE PO ×2 (09:02→20:18)
[2018-09-23] MEDS: predniSONE 20 MG TABLET 40 MG PO (09:02)
[2018-09-23] MEDS: FUROSEMIDE 40 MG TABLET PO ×2 (09:03→20:18)
[2018-09-23] MEDS: guaiFENesin ER 600 MG TAB 1200 MG PO ×2 (09:03→20:19)
[2018-09-23] MEDS: HYDRALAZINE 25 MG TABLET PO ×3 (09:03→20:21)
[2018-09-23] MEDS: LOSARTAN 50 MG TABLET 100 MG PO (09:04)
[2018-09-23] MEDS: levETIRAcetam 250 MG TABLET 500 MG PO ×2 (09:04→20:19)
[2018-09-23] MEDS: MUPIROCIN 22 GM OINT 1 APPLIC TOP ×2 (09:05→20:20)
[2018-09-23] MEDS: POTASSIUM CHLORIDE 10 MEQ TAB PO (09:05)
[2018-09-23] MEDS: PSEUDOEPHEDRINE 30 MG TABLET 60 MG PO ×2 (09:05→14:05)
[2018-09-23] MEDS: SODIUM CHLORIDE 0.9% FLUSH 10 ML IV ×2 (09:07→20:20)
[2018-09-23] MEDS: INSULIN GLARGINE 100 UNIT/ML 3ML PEN 15 UNIT SUBCUT ×2 (09:10→20:29)
[2018-09-23] MEDS: NYSTATIN POWDER 30 GM 1 APPLIC TOP ×2 (09:26→20:22)
[2018-09-23] MEDS: VANCOMYCIN TROUGH 1 REQUEST MISC (09:31)
[2018-09-23 10:00] LABS: Vancomycin Trough 17.1 ug/mL (10-20)
--- NOTE | 2018-09-23 10:04 | PC.NURSE ---
Day shift: Pt lung sounds remain course and wheezy with occasional cough present. Mostly non-productive cough. Pt able to ambulate from bed to chair. C/o low back pain and medicated per JUN. Pt also tearful this AM r/t conversation w/ yesterday. 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 Pt to work with PT/OT today. Will continue to monitor. Also on 1L NC and RT will give treatments Q4 hrs today to loosen chest congestion.
[2018-09-23] MEDS: VANCOMYCIN 200 ML 200 MG IV ×2 (10:14→21:13)
--- NOTE | 2018-09-23 11:45 | PT.IPTN ---
Current Diagnoses Benign neoplasm of meninges, unspecified (09/20/18) Type 2 diabetes mellitus without complications (09/20/18) Morbid (severe) obesity due to excess calories (09/20/18) Essential (primary) hypertension (09/20/18) Heart failure, unspecified (09/20/18) Chronic obstructive pulmonary disease with (acute) exacerbation (09/20/18) Chronic obstructive pulmonary disease, unspecified (09/20/18) Pneumonitis due to inhalation of food and vomit (09/20/18) Acute and chronic respiratory failure, unspecified whether with hypoxia or hypercapnia (09/20/18) Physical Therapy Treatment Note M2 PT-IP Current Condition Start: 09/21/18 14:18 Freq: NEEDED Status: Active Protocol: Document 09/21/18 13:15 AB (Rec: 09/21/18 14:41 AB [id number]) Physical Therapy Current Condition Current Condition Evaluation Date 09/21/18 Treatment Diagnosis PNA; COPD; difficulty in walking Onset Date 09/20/18 Precautions Other Precautions O2 sat : O2 at 4L/min at this time M3 PT-IP Subjective Start: 09/21/18 14:18 Freq: NEEDED Status: Active Protocol: Document 09/23/18 11:45 RCC (Rec: 09/23/18 12:28 RCC [id number]) Subjective Physical Therapy Visit Type Type Treatment Note Visit Start Time 11:45 Visit Stop Time 12:10 Total Visit Minutes 25 Number of DIESEL SERVICE APPRENTICE Visits 0 Physical Therapy Visit Comments Patient Comments Pt again is motivated to ambulate. M4 PT-IP Mobility and Gait Start: 09/21/18 14:18 Freq: NEEDED Status: Active Protocol: Document 09/23/18 11:45 RCC (Rec: 09/23/18 12:28 RCC [id number]) PT-Transfer Assessment Sit to and From Stand Sit to and from Stand Minimal Assistance 1 Person Assistance Use of Upper Extremities Equipment Transfer Assistive Device Gait Belt Front Wheeled Walker Orthotic/Prosthetic Devices or Brace: No Transfers Transfer Destination Chair Transfer Technique Stand Step Pivot Transfer Ability Level of Assist Minimal Assistance 1 Person Assistance Use of Upper Extremities Gait Assessment Gait Gait Assistance Required: Contact Guard Assist Distance (Feet) 25 Assistive Devices Assistive Device Gait Belt Front Wheeled Walker Gait Deviations General Gait Pattern Antalgic Decreased Stride Length Decreased Feet Clearance Flexed Trunk Wide Based Gait Factors Limiting Gait Function Factors Limiting Gait Function Decreased Activity Tolerance Decreased Strength Poor Balance Poor Safety Awareness Comments Gait Comments 1.5 L O2- 86-93% with recovery of 1 min to get back into 90s . M5 PT-IP Objective Assessments Start: 09/21/18 14:18 Freq: NEEDED Status: Active Protocol: Document 09/21/18 13:15 AB (Rec: 09/21/18 14:41 AB [id number]) Orientation Orientation/Cognition Level of Alertness Alert Orientation Name Age Birthday Month Date Year Day of Week Place Situation Language Function Ability Hard of Hearing Safety Awareness Decreased Safety Awareness Gross Range of Motion Lower Extremity ROM Assessment Within Functional Limits Strength Lower Extremity Strength Assessment Bilaterally Impaired Comments Strength Comments LLE: 4-/5 RLE: 3+/5 M6 PT-IP Treatment Start: 09/21/18 14:18 Freq: NEEDED Status: Active Protocol: Document 09/21/18 13:15 AB (Rec: 09/21/18 14:41 AB [id number]) Physical Therapy Treatment Education Education Provided Safety M7 PT-IP Assessment and Plan Start: 09/21/18 14:18 Freq: NEEDED Status: Active Protocol: Document 09/23/18 11:45 RCC (Rec: 09/23/18 12:28 RCC [id number]) PT Summary Assessment and Plan Summary Assessment Summary Pt continues to be highly motivated to improve, but still unable to ambulate safe household distances. Pt overall is significantly limited at her baseline, but does not yet appear to be at her baseline as of this date. Goals Bed Mobility Goal Standby Assistance Transfer Goal Standby Assistance Front Wheeled Walker Gait Goal Contact Guard Assistance Front Wheel Walker Gait Distance 50 Other Goals up/down 1 step to enter CGA Days to Meet Goals 10 Frequency of Treatment Frequency Of Treatment Once a Day Treatment Plan Other Recommendations and Next Treatment gait, step up/down 1 step with Focus walker Recommendations To Nursing Amount of Assist Needed 2 Person Assist Discharge Recommendations PT Discharge Recommendations SNF Rehab Equipment Needed for Home Before FWW if not safe with 4WW Discharge
[2018-09-23] MEDS: POTASSIUM CHLORIDE 60 MEQ in SODIUM CHLORIDE 0.9% 500 ML 88.333 ML IV (12:52)
--- NOTE | 2018-09-23 13:21 | PM.PN.1 ---
Subjective Date Patient Seen: 09/23/18 Interval history: Rocío Enriquez is a 57-year-old female with a past medical history significant for hypertension, diabetes mellitus type 2, insulin using, COPD with chronic respiratory failure on 2 L of oxygen, morbid obesity, meningioma who was recently hospitalized at [facility] for pneumonia and discharged on levofloxacin who presented for worsening upper respiratory symptoms including shortness of breath, productive cough, increased swelling of her lower extremities, and generalized malaise. The patient is resting in bedside chair comfortably. Her aeration has improved significantly and she is more rhonchorous. She is able to expectorate sputum today as well. She was started on Mucinex and Sudafed yesterday that seemed to be helping. Respiratory therapy has also increased her DuoNeb frequency which has helped open her airways. Continue to encourage Acapella use. She is emotionally labile today and reports that our discussion about lifestyle modification yesterday made her upset although she understands it is the truth She is voiding via bassett cathether. She has not had a bowel movement since admission and a bowel regimen has been implemented. She is up ambulating minimally and requiring a significant amount of assistance. She continues working with PT and OT. Exam Vital Signs (past 8 hours): - 09/23/18 08:18 09/23/18 08:24 09/23/18 09:00 Temperature 97.8 F Pulse Rate 77 84 Respiratory Rate 26 H 22 Blood Pressure 195/90 H Pulse Oximetry 90 L 91 93 09/23/18 11:11 Temperature Pulse Rate 74 Respiratory Rate 26 H Blood Pressure Pulse Oximetry 94 Fraction of Inspired Oxygen 24 Oxygen Delivery Method Nasal Cannula Oxygen Flow Rate 1 Narrative Exam Narrative: General: Middle aged female sitting in bedside chair comfortably and in no acute distress, appears older than stated age, well-developed, well-nourished, emotionally labile but appropriately interactive. HEENT: Normocephalic, atraumatic. External ears without defect. Pupils equal, round, and reactive to light. Anicteric sclerae, moist conjunctivae, and no lid lag. Neck: Supple with full range of motion. No JVD. No lymphadenopathy or thyromegaly. Cardiovascular: Regular rate and rhythm without murmurs, rubs, or gallops appreciated. Pulmonary: Diminished throughout but significant improvement in air movement with scattered rhonchi in lung ramirez and coarse upper airway rhonchi. No crackle or wheeze. Normal respiratory effort with no use of accessory muscles. Abdomen: Soft, obese, bowel sounds present, nontender, nondistended. No hepatosplenomegaly or masses appreciated. Extremities: No clubbing, cyanosis, or edema. Skin: Normal temperature, turgor, and texture; no rash, ulcers, or subcutaneous nodules appreciated. Neurological: Cranial nerves grossly intact. Psychiatric: Depressed mood and flat affect. Emotionally labile. Alert and oriented to person, place, and time. Objective Labs Result Diagrams: 09/23/18 05:10 09/23/18 05:10 Labs: Laboratory Results - last 24 hr 09/22/18 09/23/18 09/23/18 05:06 05:10 05:10 WBC 7.5 RBC 3.78 L Hgb 9.7 L Hct 30.5 L MCV 80.9 MCH 25.8 L MCHC 31.9 RDW 17.6 H Plt Count 319 Neut % (Auto) 74.6 Lymph % (Auto) 17.2 L [place] % (Auto) 7.0 Eos % (Auto) 0.2 L Baso % (Auto) 1.0 Neut # (Auto) 5600 Lymph # (Auto) 1300 [place] # (Auto) 500 Eos # (Auto) 0 Baso # (Auto) 100 Sodium Potassium Chloride Carbon Dioxide BUN Creatinine Estimated GFR BUN/Creatinine Ratio Glucose Hemoglobin A1c Calcium Magnesium 1.9 Total Bilirubin AST ALT Alkaline Phosphatase Total Protein Albumin Globulin Albumin/Globulin Ratio Procalcitonin < 0.05 Vancomycin Trough 09/23/18 09/23/18 09/23/18 05:10 05:10 09:20 WBC RBC Hgb Hct MCV MCH MCHC RDW Plt Count Neut % (Auto) Lymph % (Auto) [place] % (Auto) Eos % (Auto) Baso % (Auto) Neut # (Auto) Lymph # (Auto) [place] # (Auto) Eos # (Auto) Baso # (Auto) Sodium 139 Potassium 3.3 L Chloride 95 L Carbon Dioxide 40 H* BUN 19 H Creatinine 0.60 Estimated GFR > 60.0 BUN/Creatinine Ratio 31.7 H Glucose 151 H Hemoglobin A1c 6.2 H Calcium 9.6 Magnesium 1.7 Total Bilirubin 0.4 AST 14 ALT 29 Alkaline Phosphatase 83 Total Protein 7.3 Albumin 3.8 Globulin 3.5 Albumin/Globulin Ratio 1.1 Procalcitonin Vancomycin Trough 17.1 Assessment & Plan Assessment & Plan narrative: Rocío Enriquez is a 57-year-old female with a past medical history significant for hypertension, diabetes mellitus type 2, insulin using, COPD with chronic respiratory failure on 2 L of oxygen, morbid obesity, meningioma who was recently hospitalized at [facility] for pneumonia and discharged on levofloxacin who presented for worsening upper respiratory symptoms including shortness of breath, productive cough, increased swelling of her lower extremities, and generalized malaise. 1. Acute on chronic hypoxemic and hypercarbic respiratory failure, present on admission. Acute portion resolved. -Patient presented with progressive shortness of breath. -Patient is on 2.5 L of continuous supplemental oxygen chronically. Initially required 3 L of supplemental oxygen but now back to baseline oxygen requirement. -Continue respiratory therapy evaluation treatment. Continue DuoNebs every 4 hours while awake and albuterol nebs every 2 hours as needed for shortness of breath. 2. Acute COPD exacerbation, present on admission. Active. -Continue prednisone 40 mg daily x 5 days. -Continue respiratory therapy evaluation treatment. Continue duo nebs every 4 hours while awake and albuterol nebs every 2 hours as needed for shortness of breath. -Continue Mucinex 1200 mg twice daily to thin mucous secretions and Sudafed 60 mg twice daily to decrease congestion. 3. Healthcare associated pneumonia versus aspiration pneumonia, present on admission. Active. -Patient was recently hospitalized at [facility] for pneumonia and discharged on Levaquin which she failed. -Patient may have aspirated as she admited to choking on food periodically. She passed a bed side swallow eval by ST but unfortunately cannot pursue an MBS to assess for silent aspiration due to patients body hbitus she does not fit the equipment. Continue aspiration precautions. -Complete pneumonia workup performed including: Respiratory viral PCR negative. Strep pneumoniae and Legionella urine antigens pending. Sputum culture preliminarily growing yeast and gram-negative bacilli. Blood culture not performed. -Chest xray demonstrated increased bibasilar and left upper lobe patchy consolidative opacities which could represent pneumonia versus atelectasis and or aspiration since 09/13/18. -Initial WBC 12.2 and has trended down to normal. PCT <0.05. -Continue vancomycin with dosing per pharmacist and meropenem 1 g every 8 hours to cover MRSA, gram positive, and gram negative and anaerobes. If patient continues to improve will consider switching to oral antibiotics tomorrow. -Started fluconazole 150 mg daily x 3 doses. 4. Possible acute diastolic congestive heart failure exacerbation, present on admission. Active. -Chest xray demonstrated possible superimposed pulmonary edema. -Previous echocardiogram 09/08/18 demonstrated normal LV size and function with EF 60-65%, no significant valvular abnormalities, and unobtainable diastolic assessment due to body habitus. -Continue home Lasix 40 mg twice daily, carvedilol 25 mg twice daily and losartan 100 mg daily. -Continue strict I&O and daily weights. Net -3 L 5. Hypertension, chronic, present on admission. Stable. -Continue carvedilol 25 mg twice daily, amlodipine 10 mg daily, and losartan 100 mg daily. 6. Diabetes mellitus type 2, insulin using, chronic, present on admission. Stable. -Hemoglobin A1cn 6.2% indicative of tight control. -Continue Lantus 15 units increased to twice daily for better glycemic control in the setting of glucocorticoid use. -Continue ACHS glucose checks and medium dose correctional scale insulin. 7. Meningioma, chronic, present on admission. Stable. -Presumably stable and not related to current symptoms. Neurosurgical outpatient evaluation is in process. -Continue Keppra 500 mg twice daily for seizure prophylaxis. 8. Morbid obesity, present on admission. Stable. -BMI 46.4. -Discussed lifestyle modification in detail including: Diet and exercise (unrealistic for patient to perform much exercise due to physical debility/generalized weakness). 9. Probable situational vs major depression, present on admission. Active. -Patient has very little motivation. She has been hospitalized repeatedly over the last several months which is likely a driving factor in situation vs major depression. -Patient refuses to take antidepressants as she had a that was majorly depressed. Recommended counseling,specifically cognitive behavioral therapy. Disposition: Patient [facility] once she has improved with treatment for pneumonia.
[2018-09-23] MEDS: FLUCONAZOLE 150 MG TABLET PO (17:07)
--- NOTE | 2018-09-23 17:28 | RT ---
Addendum entered by Navid Jessica, RT 09/23/18 17:34: Original Note: PER DR. WELSH, SHE WANTED RT TO TRY CPT TO RIGHT AND LEFT SIDES TO SEE IF TOLERATED BY PATIENT, CPT ATTEMPTED AND TOLERATED VERY WELL TO BOTH SIDES, PT HAD NO PROBLEMS WITH PROCEDURE, WILL CONTINUE THE SAME CPT TO RIGHT AND LEFT SIDES AFTER PT'S NEB IF NOT TOLERATED RT CAN STOP CPT, ONLY IF PT'S TOLERATES IT. PROCEDURE TO BE DONE IN CHAIR, PT WILL NOT TOLERATE IT BEING DONE IN BED AND IN [place] POSITION, .
[2018-09-23] MEDS: ALBUTEROL/IPRATROPIUM 3 ML AMPUL INH (18:56)
[2018-09-23] MEDS: SENNOSIDES 8.6 MG TABLET 17.2 MG PO (20:20)
[2018-09-24] VITALS (19 sets, daily range): BP systolic 117–176; BP diastolic 71–95; PULSE 69–83; RESP 14–22; TEMP 36.2–36.8; O2SAT 90–97
[2018-09-24] MEDS: HYDROCODONE/ACET 5/325 TABLET 1 TAB PO ×4 (00:18→12:57)
[2018-09-24] MEDS: SODIUM CHLORIDE 0.9% FLUSH 10 ML IV ×3 (03:11→20:12)
[2018-09-24] MEDS: MEROPENEM 1 GM/50 ML PIGGYBACK IV (03:11)
[2018-09-24 05:30] LABS: BUN Creatinine Ratio 28.3 (6-22); Blood Urea Nitrogen 17 mg/dL (7-17); Calcium 9.8 mg/dL (8.4-10.2); Chloride 93 mmol/L (98-107); Estimated Glomerular Filt Rate > 60.0 mL/min (>60); Glucose 107 mg/dL (70-100); HEMOLYSIS < 15 (0-50); Potassium 3.7 mmol/L (3.4-5.1); Sodium 139 mmol/L (137-145)
[2018-09-24] MEDS: ENOXAPARIN 40 MG/0.4 ML SYRINGE SUBCUT ×2 (05:50→20:11)
[2018-09-24 05:56] LABS: Carbon Dioxide 41 mmol/L (22-32)
--- NOTE | 2018-09-24 06:04 | PC.NURSE ---
Notified ALVARADO Terrell with critical lab value of CO2 @ 41. No new order received @ this time. Will report to day RN.
[2018-09-24] MEDS: ALBUTEROL/IPRATROPIUM 3 ML AMPUL INH ×3 (08:25→16:17)
[2018-09-24] MEDS: POTASSIUM CHLORIDE 10 MEQ TAB PO (08:40)
[2018-09-24] MEDS: MUPIROCIN 22 GM OINT 1 APPLIC TOP ×2 (08:40→20:13)
[2018-09-24] MEDS: CARVEDILOL 25 MG TABLET PO ×2 (08:41→20:14)
[2018-09-24] MEDS: predniSONE 20 MG TABLET 40 MG PO (08:41)
[2018-09-24] MEDS: HYDRALAZINE 25 MG TABLET PO ×3 (08:41→20:15)
[2018-09-24] MEDS: AMLODIPINE 5 MG TABLET 10 MG PO (08:41)
[2018-09-24] MEDS: LOSARTAN 50 MG TABLET 100 MG PO (08:42)
[2018-09-24] MEDS: DOCUSATE 100 MG CAPSULE PO ×2 (08:42→20:12)
[2018-09-24] MEDS: levETIRAcetam 250 MG TABLET 500 MG PO ×2 (08:42→20:13)
[2018-09-24] MEDS: guaiFENesin ER 600 MG TAB 1200 MG PO ×2 (08:43→20:12)
[2018-09-24] MEDS: INSULIN GLARGINE 100 UNIT/ML 3ML PEN 15 UNIT SUBCUT ×2 (08:43→21:53)
[2018-09-24] MEDS: FUROSEMIDE 40 MG TABLET PO ×2 (08:43→20:12)
[2018-09-24] MEDS: PSEUDOEPHEDRINE 30 MG TABLET 60 MG PO ×2 (08:43→16:07)
[2018-09-24] MEDS: CIPROFLOXACIN 500 MG TABLET PO ×2 (09:37→20:11)
[2018-09-24] MEDS: NYSTATIN POWDER 30 GM 1 APPLIC TOP ×2 (09:38→20:13)
--- NOTE | 2018-09-24 09:46 | CM.URPRONOTE ---
CM UR Physician Consult Note Date of Review:: 09/24/18 Date of Admission:: 09/20/18 Length of Stay:: 5 Diagnosis:: Shortness of Breath Narrative: 57 yo female with morbid obesity and COPD who was recently discharged form [facility] after treatment for pneumonia, presented with increasing dyspnea, cough productive sputum and had worsening hypoxemia, increased WBC and new worsening infiltrates on CXR. She was admitted here for healthcare associated pneumonia with COPD exacerbation and treated with IV ABX and steroids. Patient has gradually improved clinically. Inpatient status is appropriate.
--- NOTE | 2018-09-24 09:49 | P.CMURPRON_ITS ---
CM UR Physician Consult Note Date of Review:: 09/24/18 Date of Admission:: 09/20/18 Length of Stay:: 5 Diagnosis:: Shortness of Breath Narrative: 57 yo female with morbid obesity and COPD who was recently discharged form [facility] after treatment for pneumonia, pre sented with increasing dyspnea, cough productive sputum and had worsening hypoxemia, increased WBC and new worsening infiltrates on CXR. She was admitted here for healthcare associated pneumonia with COPD exacerbation and treated with IV ABX and steroids. Patient has gradually improved clinically. Inpatient status is appropriate.
--- NOTE | 2018-09-24 10:40 | P.PN_ITS ---
Subjective Date Patient Seen: 09/24/18 Interval history: Rocío Enriquez is a 57-year-old female with a past medical history significant for hypertension, diabetes mellitus type 2, insulin using, COPD with chronic respiratory failure on 2 L of oxygen, morbid obesity, meningioma who was recently hospitalized at [facility] for pneumonia and discharged on levofloxacin who presented for worsening upper respiratory symptoms including shortness of breath, productive cough, increased swelling of her lower extremities, and generalized malaise. The patient is sitting in bedside chair comfortably. She reports she is achy all over especially her back and hips. She continues to have a significant am ount of pleuritic chest pain with coughing and is relieved with Vicodin. Her aeration continues to improve. She is more rhonchorous bilaterally in all lung ramirez today as her chest is starting to loosen up. Plan to continue chest physiotherapy, Mucinex, Sudafed, and bronchodilators. She continues to use Acapella very minimally. Instructed the patient to demonstrate the Acapella to me and recommended she take deeper breaths and/or catch her breath in between blowing into flutter valve. She continues to endorse fatigue but otherwise has no complaints and denies headache, shortness of breath, abdominal pain, nausea, vomiting, fever, chills, dysuria, diarrhea or constipation. She is voiding via bassett cathether which will be removed today. She is eliminating without difficulty. She is up ambulating minimally and requiring a significant amount of assistance. She reports she is not at her baseline mobility. She continues to work with PT and OT. Exam Vital Signs (past 8 hours): - 09/24/18 02:56 09/24/18 07:00 09/24/18 07:41 Temperature 97.9 F 98.2 F Pulse Rate 77 75 Respiratory Rate 16 16 Blood Pressure 153/77 H 176/94 H Pulse Oximetry 95 90 L 94 09/24/18 08:40 Temperature Pulse Rate 76 Respiratory Rate 16 Blood Pressure Pulse Oximetry 94 Fraction of Inspired Oxygen 28 Oxygen Delivery Method Nasal Cannula Oxygen Flow Rate 2.5 Narrative Exam Narrative: General: Middle aged female sitting in bedside chair comfortably and in no acute distress, appears older than stated age, mildly disheveled, well-developed, well-nourished, emotionally labile but otherwise appropriately interactive. HEENT: Normocephalic, atraumatic. External ears without defect. Pupils equal, round, and reactive to light. Anicteric sclerae, moist conjunctivae, and no lid lag. No oral exudates or thrush. Neck: Supple with full range of motion. No JVD. No lymphadenopathy or thyromegaly. Cardiovascular: Regular rate and rhythm without murmurs, rubs, or gallops appreciated. Pulmonary: Diminished throughout but significant improvement in aeration with scattered rhonchi in all lung ramirez. No crackle or wheeze. Normal respiratory effort with no use of accessory muscles. Abdomen: Soft, obese, bowel sounds present, nontender, nondistended. No hepatosplenomegaly or masses appreciated. Extremities: No clubbing, cyanosis, or edema. Skin: Normal temperature, turgor, and texture; no rash, ulcers, or subcutaneous nodules appreciated. Neurological: Cranial nerves grossly intact. Generalized weakness. Psychiatric: Depressed mood and flat affect. Emotionally labile. Alert and oriented to person, place, and time. Objective Labs Result Diagrams: 09/23/18 05:10 09/24/18 04:53 Labs: Laboratory Results - last 24 hr 09/24/18 04:53 Sodium 139 Potassium 3.7 Chloride 93 L Carbon Dioxide 41 H* BUN 17 Creatinine 0.60 Estimated GFR > 60.0 BUN/Creatinine Ratio 28.3 H Glucose 107 H Calcium 9.8 Assessment & Plan Assessment & Plan narrative: Rocío Enriquez is a 57-year-old female with a past medical history significant for hypertension, diabetes mellitus type 2, insulin using, COPD with chronic respiratory failure on 2 L of oxygen, morbid obesity, meningioma who was recently hospitalized at [facility] for pneumonia and discharged on levofloxacin who presented for worsening upper respiratory symptoms including shortness of breath, productive cough, increased swelling of her lower extremities, and generalized malaise. 1. Acute on chronic hypoxemic and hypercarbic respiratory failure, present on admission. Acute portion resolved. -Patient presented with progressive shortness of breath. -Patient is on 2.5 L of continuous supplemental oxygen chronically. Initially required 3 L of supplemental oxygen but now back to baseline oxygen requirement. -Continue respiratory therapy evaluation treatment. Continue DuoNebs every 4 hours while awake and albuterol nebs every 2 hours as needed for shortness of breath. 2. Acute COPD exacerbation, present on admission. Resolving. -Continue prednisone 40 mg daily x 5 days. -Continue respiratory therapy evaluation treatment. Ordered chest physiotherapy yesterday which the patient tolerated well and will continue per RT. Continue duo nebs every 4 hours while awake and albuterol nebs every 2 hours as needed for shortness of breath. -Continue Mucinex 1200 mg twice daily to thin mucous secretions and Sudafed 60 mg twice daily to decrease congestion. 3. Healthcare associated pneumonia and likely some component of aspiration pneumonia, present on admission. Resolving. -Patient was recently hospitalized at [facility] for pneumonia and discharged on Levaquin which she failed. -Patient may have aspirated as she admited to choking on food periodically. She passed a bed side swallow eval by ST but unfortunately cannot pursue an MBS to assess for silent aspiration due to patients body hbitus she does not fit the equipment. Continue aspiration precautions. -Complete pneumonia workup performed including: Respiratory viral PCR negative. Strep pneumoniae and Legionella urine antigens pending. Sputum culture grew yeast and achromobacter denitrificans resistant to ceftriaxone. Blood culture not performed. -Chest xray demonstrated increased bibasilar and left upper lobe patchy consolidative opacities which could represent pneumonia versus atelectasis and or aspiration since 09/13/18. -Initial WBC 12.2 and has trended down to normal. PCT <0.05. -Discontinued vancomycin with dosing per pharmacist and meropenem. Switched to ciprofloxacin to treat achromobacter denitrificans. -Started fluconazole 150 mg daily x 3 doses. 4. Acute diastolic congestive heart failure exacerbation, present on admission. Active. -Chest xray demonstrated possible superimposed pulmonary edema. -Previous echocardiogram 09/08/18 demonstrated normal LV size and function with EF 60-65%, no significant valvular abnormalities, and unobtainable diastolic assessment due to body habitus. -Continue home Lasix 40 mg twice daily, carvedilol 25 mg twice daily and losartan 100 mg daily. Increase potassium chloride 10 mEq daily to 20 mEq daily and will continue to titrate up as needed. -Continue strict I&O and daily weights. Net -6 L. 5. Hypertension, chronic, present on admission. Stable. -Continue carvedilol 25 mg twice daily, amlodipine 10 mg daily, and losartan 100 mg daily. 6. Diabetes mellitus type 2, insulin using, chronic, present on admission. Stable. -Hemoglobin A1cn 6.2% indicative of tight control. -Continue Lantus 15 units increased to twice daily for better glycemic control in the setting of glucocorticoid use. Will plan to decrease once glucocorticoid course completed. -Continue ACHS glucose checks and medium dose correctional scale insulin. 7. Meningioma, chronic, present on admission. Stable. -Presumably stable and not related to current symptoms. Neurosurgical outpatient evaluation is in process. -Continue Keppra 500 mg twice daily for seizure prophylaxis. 8. Morbid obesity, present on admission. Stable. -BMI 46.4. -Discussed lifestyle modification in detail including: Diet and exercise (unrealistic for patient to perform much exercise due to physical debility/generalized weakness). 9. Probable situational vs major depression, present on admission. Active. -Patient has very little motivation. She has been hospitalized repeatedly over the last several months which is likely a driving factor in situation vs major depression. -Patient refuses to take antidepressants as she had a that was majorly depressed. Recommended counseling,specifically cognitive behavioral therapy. Disposition: Patient likely to discharge to senior care facility if approv ed by insurance as she is not at baseline mobility and requires continued rehabilitation for generalized weakness.
--- NOTE | 2018-09-24 11:15 | PT.IPTN ---
Current Diagnoses Benign neoplasm of meninges, unspecified (09/20/18) Type 2 diabetes mellitus without complications (09/20/18) Morbid (severe) obesity due to excess calories (09/20/18) Essential (primary) hypertension (09/20/18) Heart failure, unspecified (09/20/18) Pneumonia, unspecified organism (09/20/18) Chronic obstructive pulmonary disease with (acute) exacerbation (09/20/18) Chronic obstructive pulmonary disease, unspecified (09/20/18) Pneumonitis due to inhalation of food and vomit (09/20/18) Acute and chronic respiratory failure, unspecified whether with hypoxia or hypercapnia (09/20/18) Physical Therapy Treatment Note M2 PT-IP Current Condition Start: 09/21/18 14:18 Freq: NEEDED Status: Active Protocol: Document 09/21/18 13:15 AB (Rec: 09/21/18 14:41 AB [id number]) Physical Therapy Current Condition Current Condition Evaluation Date 09/21/18 Treatment Diagnosis PNA; COPD; difficulty in walking Onset Date 09/20/18 Precautions Other Precautions O2 sat : O2 at 4L/min at this time M3 PT-IP Subjective Start: 09/21/18 14:18 Freq: NEEDED Status: Active Protocol: Document 09/24/18 10:45 CLB (Rec: 09/24/18 15:00 CLB [id number]) Subjective Physical Therapy Visit Type Type Treatment Note Visit Start Time 10:45 Visit Stop Time 11:10 Total Visit Minutes 25 Number of SEQUINS SPOOLER Visits 1 Physical Therapy Visit Comments Patient Comments Pt wants to be able to ambulate in room. M4 PT-IP Mobility and Gait Start: 09/21/18 14:18 Freq: NEEDED Status: Active Protocol: Document 09/24/18 10:45 CLB (Rec: 09/24/18 15:00 CLB [id number]) PT-Transfer Assessment Sit to and From Stand Sit to and from Stand Independent Equipment Transfer Assistive Device Gait Belt Front Wheeled Walker Orthotic/Prosthetic Devices or Brace: No Transfers Transfer Destination Chair Transfer Technique Stand Step Pivot Transfer Ability Level of Assist Standby Assistance Comments Mobility Comments Pt stood up from chair on her own while therapist was retrieving equipment. Gait Assessment Gait Gait Assistance Required: Contact Guard Assist Distance (Feet) 25 Assistive Devices Assistive Device Gait Belt Front Wheeled Walker Gait Deviations General Gait Pattern Antalgic Decreased Stride Length Decreased Feet Clearance Flexed Trunk Wide Based Gait Factors Limiting Gait Function Factors Limiting Gait Function Decreased Activity Tolerance Decreased Strength Poor Balance Comments Gait Comments Pt on 2 L O2 saturation 88-92 during activity able to recover within 1 minute. M5 PT-IP Objective Assessments Start: 09/21/18 14:18 Freq: NEEDED Status: Active Protocol: Document 09/21/18 13:15 AB (Rec: 09/21/18 14:41 AB [id number]) Orientation Orientation/Cognition Level of Alertness Alert Orientation Name Age Birthday Month Date Year Day of Week Place Situation Language Function Ability Hard of Hearing Safety Awareness Decreased Safety Awareness Gross Range of Motion Lower Extremity ROM Assessment Within Functional Limits Strength Lower Extremity Strength Assessment Bilaterally Impaired Comments Strength Comments LLE: 4-/5 RLE: 3+/5 M6 PT-IP Treatment Start: 09/21/18 14:18 Freq: NEEDED Status: Active Protocol: Document 09/24/18 10:45 CLB (Rec: 09/24/18 15:00 CLB [id number]) Physical Therapy Treatment Exercises Exercises Ankle Pumps Seated Knee Flexion/Extension M7 PT-IP Assessment and Plan Start: 09/21/18 14:18 Freq: NEEDED Status: Active Protocol: Document 09/24/18 10:45 CLB (Rec: 09/24/18 15:00 CLB [id number]) PT Summary Assessment and Plan Summary Assessment Summary Pt continues to progressing with sit<>stand and gait. Pt has improved balance and safety awareness but contiues to fatigue quickly with c/o left knee pain during ambulation. If pt is to d/c home she would need 24/7 assist of daughter with HH PT. coffee machine technician training is scheduled for tomorrow at 12: 00 with daughter. Goals Bed Mobility Goal Standby Assistance Transfer Goal Standby Assistance Front Wheeled Walker Gait Goal Contact Guard Assistance Front Wheel Walker Gait Distance 50 Other Goals up/down 1 step to enter CGA Days to Meet Goals 10 Frequency of Treatment Frequency Of Treatment Once a Day Treatment Plan Other Recommendations and Next Treatment gait, step up/down 1 step with Focus walker Recommendations To Nursing Amount of Assist Needed 1 Person Assist Discharge Recommendations PT Discharge Recommendations Home with 24/7 Assist SNF Rehab Other Discharge Recommendations Home with 24/7 assist and HH PT vs SNF Equipment Needed for Home Before FWW if not safe with 4WW Discharge
[2018-09-24] MEDS: INSULIN ASPART 100 UNIT/ML INSULN PEN SUBCUT ×3 (11:59→21:53)
--- NOTE | 2018-09-24 12:10 | OT.IP.TRT ---
Current Diagnoses Benign neoplasm of meninges, unspecified (09/20/18) Type 2 diabetes mellitus without complications (09/20/18) Morbid (severe) obesity due to excess calories (09/20/18) Essential (primary) hypertension (09/20/18) Heart failure, unspecified (09/20/18) Pneumonia, unspecified organism (09/20/18) Chronic obstructive pulmonary disease with (acute) exacerbation (09/20/18) Chronic obstructive pulmonary disease, unspecified (09/20/18) Pneumonitis due to inhalation of food and vomit (09/20/18) Acute and chronic respiratory failure, unspecified whether with hypoxia or hypercapnia (09/20/18) Occupational Therapy Treatment Note M2 OT-IP Current Condition Start: 09/21/18 17:51 Freq: Status: Active Protocol: Document 09/21/18 13:40 [facility] (Rec: 09/21/18 18:06 [facility] [id number]) Occupational Therapy Current Condition Current Condition Evaluation Date 09/21/18 Treatment Diagnosis Acute respiratory failure, COPD exacerbation Diagnosis Onset Date 09/20/18 Weight Bearing Status Weight Bearing Status Weight Bear as Tolerated M3 OT- IP Subjective and Pain Start: 09/21/18 17:51 Freq: Status: Active Protocol: Document 09/24/18 11:58 [facility] (Rec: 09/24/18 12:09 [facility] [id number]) OT- Subjective Occupational Therapy Visit Type Type Treatment Note Visit Start Time 11:00 Visit Stop Time 11:55 Total Visit Minutes 55 Occupational Therapy Visit Comments Patient Comments Pt agreeable to shower. Patient/Caregiver Goals Pt wants to go home. OT Pain Assessment Pain When Pain Assessed At Rest Pain Present Pain Present Denied Pain M4 OT- IP ADL's Start: 09/21/18 17:51 Freq: Status: Active Protocol: Document 09/24/18 11:58 [facility] (Rec: 09/24/18 12:09 [facility] [id number]) OT ADL-Grooming General Evaluation Grooming Ability Standby Assistance Areas Needing Assistance Retrieving/Set-up of Grooming Items Combing/Brushing Hair Face Washing Comments OT Grooming Comments Seated in chair at sink OT ADL-Dressing General Eval Lower Body Dressing Ability Maximum Assistance Areas Needing Assistance Underpants/Brief Socks Comments OT Dressing Comments Help to get brief over her feet. MAX A for socks, pt states daughter assist at home . OT ADL-Toileting General Evaluation Toileting Ability Standby Assistance Moderate Assistance Areas Needing Assistance Perform Perineal Hygiene Comments OT Toileting Comments Pt able to wipe from the and needing assist for completeness for the back. Educated pt on getting toilet aid or family will have to assist. OT ADL-Bathing Bathing Type Bathing Type Shower General Evaluation Bathing Ability Moderate Assistance Areas Needing Assistance Wash/Dry Back Wash/Dry Perineal Area Wash/Dry Lower Extremities Devices Bathing Equipment Hand Held Shower Sprayer Grab Bars Comments OT Bathing Comments Pt states at home has been apprehensive about showering and has just sponge bathed. Pt has tub bench at home and grab bars and daughter able to assist at home. Pt states feels more comfortable now to get back to bathing at home. M5 OT- IP IADL's Start: 09/21/18 17:51 Freq: Status: Active Protocol: Document 09/21/18 13:40 [facility] (Rec: 09/21/18 18:06 [facility] [id number]) OT-Instrumental Activities of Daily Living Medication Management Medication Management Caregiver Administers Money Management Money Management Caregiver Provides Supervision Meal Preparation Meal Preparation Caregiver Provides Assist Fishing Worker Fishing Worker Caregiver Provides Assist M6 OT- IP Functional Cognition Start: 09/21/18 17:51 Freq: Status: Active Protocol: Document 09/24/18 11:58 [facility] (Rec: 09/24/18 12:09 [facility] [id number]) Cognitive Factors Limiting Selfcare Function Cognitive Ability Level of Alertness Alert Patient Orientation Name Age Birthday Month Date Year Day of Week Place Situation Attention Span Ability Capable of Focused Attention Capable of Sustained Attention Ability to Follow Commands Able to Follow Multi-Step Commands Memory Description No Deficits Noted Safety Awareness Underestimates Need for Assistance Cognitive Comments Cognitive Assessment Comments Pt doing much better now versus on OT eval and appears to have good safety awareness to take breaks, take her time and use the call light as needed. M7 OT- IP Mobility and Balance Start: 09/21/18 17:51 Freq: Status: Active Protocol: Document 09/24/18 11:58 [facility] (Rec: 09/24/18 12:09 [facility] [id number]) OT-Transfer Assessment Sit to and From Stand Sit to and from Stand Contact Guard Assistance Transfers Transfer Ability Standby Assistance Minimal Assistance Technique Transfer Destination Chair Shower Stall Toilet Transfer Technique Stand Step Pivot Devices Transfer Assistive Devices Gait Belt Front Wheeled Walker Comments Mobility Comments Pt moving better today and at times just SBA, VREO mainly to come to stand from higher surfaces. Pt on 2L and 91-94%. OT- Balance Assessment Sitting Balance and Reactions Static Sitting Balance Ability Normal Dynamic Sitting Balance Ability Normal Standing Balance and Reactions Static Standing Balance Ability Good M8 OT- IP Objective Assessments Start: 09/21/18 17:51 Freq: Status: Active Protocol: Document 09/21/18 13:40 [facility] (Rec: 09/21/18 18:06 [facility] [id number]) OT Gross Range of Motion Upper Extremity Range of Motion Assessment Bilaterally Impaired OT Strength Comments Strength Comments BUE 3-/5 to 3+/5 from proximal to distal. M9 OT- IP Assessment and Plan Start: 09/21/18 17:51 Freq: Status: Active Protocol: Document 09/24/18 11:58 [facility] (Rec: 09/24/18 12:09 [facility] [id number]) OT Summary Assessment and Plan Potential Rehabilitation Potential Good Analytic Complexity at Evaluation Low Summary OT Impairments Pain Range of Motion Strength Balance Functional Cognition Functional Mobility Dressing Toileting Bathing Toilet Transfers Progress Towards Goals Progressing Toward Goals Assessment Summary Pt doing well and now looking into going home with home health. Pt's family to come tomorrow for caregiver training. Pt feels that she is back to baseline needs. Goals Dressing Goal Minimal Assistance Toileting Goal Moderate Assistance Toilet Transfer Goal Standby Assistance Patient/Caregiver Education Goal Demonstrate Energy Conservation and Pacing Caregiver Independent Assisting Patient Days to Meet Goals 3 Frequency of Treatment Frequency Of Treatment Once a Day Treatment Plan OT Treatment Plan ADL Training Functional Cognition Training Functional Mobility Patient/Family Education Discharge Planning Other Treatment Recommendations and Next Stand to sink from grooming Treatment Focus needs SBA, caregiver training. Discharge Recommendations OT Discharge Recommendations Home with Assistance Home Health
--- NOTE | 2018-09-24 13:52 | ST.IPDYTX ---
Care Team Visit Care Team Role Provider Type H Jesus Lin MD Primary Care Provider Physician Specialty: Medical Address: [address] [place] [address], [place], [address] Email: Ángela Worthington MD Emergency Provider Physician Specialty: Emergency Medicine Address: [address] [place] [address], [id number] Email: Jena Mena MD Admit Provider Physician Attending Provider Specialty: Internal Medicine Address: [address] [place] [address], [id number] Email: [email or web address] RETICLE PRINTER Dysphagia Treatment RETICLE PRINTER Dysphagia Treatment Start: 09/24/18 13:39 Freq: Status: Active Protocol: Document 09/24/18 13:40 LNK (Rec: 09/24/18 13:52 [facility] [id number]) Dysphagia Treatment Session Time Visit Start Time 12:15 Visit Stop Time 12:35 Total Visit Minutes 20 Setting Assessment Location Acute Care Visit Type Note Type Treatment Note Next Note Type Next Note Type Treatment Note Patient Information Identification Type Name ID Wristband Subjective Observations Pt seated in bedside chair. O2 via nasal canula. Pt remarked that she is feeling better. Treatment Liquids Trialed Thin Administration Type Tea Spoon Self-Feeding Oral Strategies Upright at 90 degrees Pharyngeal Strategies Sitting Upright (90 deg) Additional Dysphagia Treatment Reminded pt to eat slowly as Strategies bolting her foods increases aspiration risk Treatment Activities Pt observed with noon meal of soup, peaches and pudding. Pt is specifically ordering a very soft diet as she has reported difficulty with choking on more advanced textures. She reported that last night she asked for a sandwich and noted that she was eating it quickly as she was hungry. She noticed that she was having a harder time with swallowing as she had been eating large bite quickly . She reported that she then cut her sandwich into smaller pieces and slowed down her intake which helped swallow. Assessment Patient Response to Treatment Good Assessment of Improvement Overall pt was improved from last week. Diet Recommendations Recommendations Continue Current Diet Liquids Order Thin Diet Order Dysphagia Advanced Medication Recommendations As Tolerated Whole in Carrier Aspiration Precautions Recommended Precautions Upright at 90 Degrees Frequent Rest Periods Small Bites/Sips Treatment Plan Placement Recommendation after Discharge Home Appropriate for Continued Therapy Yes Dysphagia Goals Pt will safely tolerate least- restrictive diet without overt s/sx aspiration to meet nutritional and hydration needs.
--- NOTE | 2018-09-24 14:26 | CM.DPC ---
DCP/continued: Reviewed chart. Patient seen by both PT and OT this AM. Both in agreement that patient okay to d/c home with resume HH through [facility]. OT reports that family coming in on 09-25-18 to do caregiver training[address] Dr. Walker made aware. HEAD BUCKER met with patient this AM explained role. Patient sitting up in recliner, alert and oriented. Patient reports that she uses 02 and walker at baseline. Patient agreeable to go home with supportive family and HH. Left vm with Allegra at [facility] indicating that patient most likely will d/c from [facility] on 09-25-18 and that HH services will need to be resumed. Received phone call from [facility] and they report that they are unable to accept. Luckily, patient no longer in need of SNF. P: Home with resume HH services through [facility]. CM to finalize on day of d/c. [facility] has been notified. LISSETT Del Toro
[2018-09-24] MEDS: FLUCONAZOLE 150 MG TABLET PO (16:07)
[2018-09-24] MEDS: SENNOSIDES 8.6 MG TABLET 17.2 MG PO (20:12)
--- NOTE | 2018-09-24 21:15 | ED.SOB ---
HPI - SOB/Dyspnea General Chief Complaint: Shortness of Breath/Dyspnea Stated Complaint: Shortness of Breathe Time Seen by Provider: 09/20/18 09:48 Source: patient and EMS Mode of arrival: EMS Limitations: no limitations History of Present Illness Patient complains of shortness of breath for the last several days. She states that her breathing just feels ?tight?. She denies any fevers. No productive cough. Patient has a history of CHF, as well as pneumonia. She states that her Lasix was recently increased. She denies any nausea vomiting; no abdominal pain. No chest pain. No other complaints at this time. Related Data Home Medications Medication Instructions Recorded Confirmed amlodipine 10 mg PO DAILY 09/20/18 09/20/18 ascorbic acid (vitamin C) [Vitamin 500 mg PO DAILY 09/20/18 09/20/18 C With Shona Hips] carvedilol 25 mg PO BID 09/20/18 09/20/18 ferrous sulfate 325 mg PO DAILY 09/20/18 09/20/18 furosemide 20 mg PO DAILY 09/20/18 09/20/18 furosemide 40 mg PO [id number] 09/20/18 09/20/18 hydralazine 25 mg PO TID 09/20/18 09/20/18 insulin lispro 10 unit SUBCUT 3-4XD 09/20/18 09/20/18 levetiracetam 500 mg PO BID 09/20/18 09/20/18 levofloxacin 500 mg PO [id number] 09/20/18 09/20/18 losartan 100 mg PO DAILY 09/20/18 09/20/18 mupirocin 1 applic TOPICAL DIRECTED 09/20/18 09/20/18 nystatin 1 applic TOPICAL [id number] 09/20/18 09/20/18 potassium chloride 10 meq PO DAILY 09/20/18 09/20/18 Allergies Allergy/AdvReac Type Severity Reaction Status Date / Time naproxen Allergy Mild MADE MY Verified 05/26/18 10:43 FACE NUMB meperidine Allergy Unknown Verified 05/26/18 10:43 Penicillins Allergy Unknown Verified 05/26/18 10:43 Sulfa (Sulfonamide Allergy Unknown Verified 05/26/18 10:43 Antibiotics) diphenhydramine AdvReac Shakiness Verified 05/26/18 10:43 [From Benadryl] Review of Systems Constitutional Denies chills, Denies fever(s), Denies lethargy and Denies weakness Eyes Denies change in vision, Denies eye discharge, Denies irritation and Denies loss of vision ENT Ears, Nose, Mouth, and Throat: Denies change in voice, Denies neck pain and Denies sore throat Cardiovascular Denies chest pain, Denies irregular heart rhythm, Denies lightheadedness, Denies palpitations, Reports dyspnea, Reports dyspnea on exertion and Denies orthopnea Respiratory Reports cough, Reports dyspnea, Reports dyspnea on exertion and Reports wheezing Gastrointestinal Gastrointestinal: Denies abdominal pain, Denies change in bowel habits, Denies diarrhea, Denies nausea and Denies vomiting Genitourinary Denies hematuria, Denies flank pain, Denies urinary incontinence and Denies urinary urgency Musculoskeletal Denies neck pain Integumentary/Breasts Denies pruritus, Denies erythema, Denies rash and Denies wounds Neurologic Denies confusion, Denies loss of vision and Denies weakness Psychiatric Denies anxiety, Denies confusion, Denies depression, Denies homicidal ideation and Denies suicidal ideation Endocrine Denies palpitations Hematologic/Lymphatic Denies easy bruising Allergic/Immunologic Reports wheezing [facility] Medical History (Updated 09/24/18 @ 21:18 by Ángela Worthington MD) History of congestive heart failure (Acute) Chronic respiratory failure (Acute) Hypoxia (Acute) Meningioma (Acute) Diabetes (Acute) Morbidly obese (Acute) COPD (chronic obstructive pulmonary disease) (Acute) Hypertension (Acute) Surgical History (Updated 09/24/18 @ 21:18 by Ángela Worthington MD) Status post cholecystectomy (Acute) Status post appendectomy (Acute) Family History (Updated 09/20/18 @ 17:18 by Jena Mena MD) Daughter No problems noted. Son No problems noted. Mother Diabetes mellitus Congestive heart failure Father Diabetes mellitus Social History household members: significant other, family and children Smoking Status: Never smoker Social History household members: significant other, family and children Smoking Status: Never smoker Exam Initial Vital Signs Initial Vital Signs: Vital Signs Temperature 97.4 F L 09/20/18 09:19 Pulse Rate 90 09/20/18 09:19 Respiratory Rate 24 09/20/18 09:19 Blood Pressure 177/77 H 09/20/18 09:19 Pulse Oximetry 87 L 09/20/18 09:19 Const General: cooperative and well developed Nutritional Appearance: well nourished Orientation: alert, awake, oriented x3 and not confused [facility] Head: normocephalic and atraumatic Ears: external ears normal Nose: external nose normal and No nasal discharge Face and sinus: face symmetric and No dry mucous membranes Mouth: oral mucosae normal and moist mucous membranes Teeth and gingiva: dentition normal Eyes General: appearance normal, both eyes and all related structures Eyelids: eyelids normal Conjunctivae: conjunctivae normal Sclera: sclerae normal Pupils: PERRL EOM: EOM intact bilaterally Neck Neck: normal visual inspection, trachea midline, No lymphadenopathy, No midline deformity and No JVD Lymphatic: No lymphedema Chest Chest: normal inspection of the chest Resp Effort & Inspection: able to speak in complete sentences (Short sentences, occasionally just phrases), labored, no respiratory distress and no use of accessory muscles Auscultation: clear to auscultation bilaterally, no rales, no rhonchi and wheezes (Slight, diffuse, with decreased air movement) Cardio Rate: regular rate Rhythm: regular rhythm Heart Sounds: no click, no gallops, no murmurs and no rubs Pulses: normal peripheral pulses GI Inspection: non-distended Palpation: soft, no hepatosplenomegaly, No guarding, No pulsatile mass and No tender Auscultation: normal bowel sounds Back/Spine/Pelvis Back: No CVA tenderness Cervical Spine: cervical ROM normal and No pain with cervical ROM Thoracic/Lumbar Spine: thoracic and lumbar spine normal to inspection Skin General: no rashes or lesions noted, No jaundice and No petechiae Neuro General: alert, oriented x3, gait normal and no focal motor deficits Speech: speech normal Extrem General: full ROM, no clubbing, cyanosis or edema, no pedal edema and no calf tenderness Psych Appearance: well kempt Mental Status: mental status grossly normal Attitude: cooperative Thought Content: normal and suicidality Judgment: judgment good Course Course Narrative: Patient was worked up for her difficulty breathing with labs, chest x-ray, and EKG. Patient was found, somewhat surprisingly, to have a normal BNP, though her symptoms seem most indicative of a CHF exacerbation. Her white blood cell count was normal, but chest x-ray did show probable pneumonia and possible pulmonary edema, as well. Patient was treated with antibiotics. She had already been treated with Lasix, and had put out a fair amount of urine, and was actually feeling a little bit better. However, the patient still became very dyspneic with any physical exertion, and her oxygen saturation was low, and I felt she should be admitted to the hospital. I spoke with hospitalist on-call, who agreed to admit the patient to hospitalist service. Orders Ordered: Acetaminophen (Tylenol) 650 mg PO Q6HR PRN PRN Reason: As Needed for Fever/Mild Pain Last Admin: 09/21/18 05:18 Dose: 650 mg Hydrocodone Bitart/Acetaminophen ([place] 5/325) 1 tab PO Q4HR PRN PRN Reason: Pain, Moderate (4-6) Last Admin: 09/24/18 12:57 Dose: 1 tab Admin: 09/24/18 08:47 Dose: 1 tab Admin: 09/24/18 04:44 Dose: 1 tab Admin: 09/24/18 00:18 Dose: 1 tab Admin: 09/23/18 17:51 Dose: 1 tab Admin: 09/23/18 11:41 Dose: 1 tab Admin: 09/23/18 07:44 Dose: 1 tab Admin: 09/23/18 04:19 Dose: 1 tab Admin: 09/23/18 00:19 Dose: 1 tab Admin: 09/22/18 16:00 Dose: 1 tab Admin: 09/22/18 11:45 Dose: 1 tab Admin: 09/22/18 07:57 Dose: 1 tab Admin: 09/22/18 04:10 Dose: 1 tab Admin: 09/22/18 00:06 Dose: 1 tab Admin: 09/21/18 19:44 Dose: 1 tab Admin: 09/21/18 14:26 Dose: 1 tab Admin: 09/21/18 07:54 Dose: 1 tab Admin: 09/21/18 03:56 Dose: 1 tab Admin: 09/20/18 23:47 Dose: 1 tab Admin: 09/20/18 17:30 Dose: 1 tab Albuterol (Ventolin) 2.5 mg INH [id number] PRN PRN Reason: Shortness Of Breath Last Admin: 09/23/18 15:05 Dose: 2.5 mg Admin: 09/23/18 11:10 Dose: 2.5 mg Admin: 09/23/18 07:55 Dose: 2.5 mg Admin: 09/22/18 03:34 Dose: 2.5 mg Albuterol/Ipratropium (Duoneb) 3 ml INH [id number] [facility] Last Admin: 09/24/18 16:17 Dose: 3 ml Admin: 09/24/18 16:16 Dose: Not Given Admin: 09/24/18 12:49 Dose: 3 ml Admin: 09/24/18 08:25 Dose: 3 ml Admin: 09/24/18 08:23 Dose: Not Given Admin: 09/23/18 18:56 Dose: 3 ml Amlodipine Besylate (Norvasc) 10 mg PO DAILY [facility] Last Admin: 09/24/18 08:41 Dose: 10 mg Admin: 09/23/18 09:01 Dose: 10 mg Admin: 09/22/18 08:25 Dose: 10 mg Admin: 09/21/18 08:23 Dose: 10 mg Bisacodyl (Dulcolax) 10 mg PO DAILY PRN PRN Reason: Constipation Bisacodyl (Dulcolax) 10 mg [place] DAILY PRN PRN Reason: Constipation Carvedilol (Coreg) 25 mg PO BID [facility] Last Admin: 09/24/18 20:14 Dose: 25 mg Admin: 09/24/18 08:41 Dose: 25 mg Admin: 09/23/18 20:21 Dose: 25 mg Admin: 09/23/18 09:01 Dose: 25 mg Admin: 09/22/18 20:06 Dose: 25 mg Admin: 09/22/18 08:25 Dose: 25 mg Admin: 09/21/18 20:14 Dose: 25 mg Admin: 09/21/18 08:23 Dose: 25 mg Admin: 09/20/18 20:56 Dose: 25 mg Ciprofloxacin (Cipro) 500 mg PO BID [facility] Last Admin: 09/24/18 20:11 Dose: 500 mg Admin: 09/24/18 09:37 Dose: 500 mg Dextrose (D50w) 25 gm IV PRN PRN PRN Reason: Hypoglycemia Docusate Sodium (Colace) 100 mg PO BID [facility] Last Admin: 09/24/18 20:12 Dose: 100 mg Admin: 09/24/18 08:42 Dose: 100 mg Admin: 09/23/18 20:18 Dose: 100 mg Admin: 09/23/18 09:02 Dose: 100 mg Admin: 09/22/18 20:06 Dose: 100 mg Admin: 09/22/18 08:25 Dose: 100 mg Admin: 09/21/18 20:15 Dose: 100 mg Admin: 09/21/18 08:23 Dose: 100 mg Admin: 09/20/18 20:56 Dose: 100 mg Enoxaparin Sodium (Lovenox) 40 mg SUBCUT 0600,1800 [facility] Last Admin: 09/24/18 20:11 Dose: 40 mg Admin: 09/24/18 05:50 Dose: 40 mg Admin: 09/23/18 17:07 Dose: 40 mg Admin: 09/23/18 06:27 Dose: 40 mg Admin: 09/22/18 18:36 Dose: 40 mg Fluconazole (Diflucan) 150 mg PO 1700 [facility] Stop: 09/25/18 17:01 Last Admin: 09/24/18 16:07 Dose: 150 mg Admin: 09/23/18 17:07 Dose: 150 mg Furosemide (Lasix) 40 mg PO BID [facility] Last Admin: 09/24/18 20:12 Dose: 40 mg Admin: 09/24/18 08:43 Dose: 40 mg Admin: 09/23/18 20:18 Dose: 40 mg Admin: 09/23/18 09:03 Dose: 40 mg Admin: 09/22/18 20:06 Dose: 40 mg Admin: 09/22/18 08:25 Dose: 40 mg Admin: 09/21/18 20:15 Dose: 40 mg Admin: 09/21/18 08:23 Dose: 40 mg Admin: 09/20/18 20:56 Dose: 40 mg Guaifenesin (Mucinex) 1,200 mg PO BID [facility] Last Admin: 09/24/18 20:12 Dose: 1,200 mg Admin: 09/24/18 08:43 Dose: 1,200 mg Admin: 09/23/18 20:19 Dose: 1,200 mg Admin: 09/23/18 09:03 Dose: 1,200 mg Admin: 09/22/18 20:07 Dose: 1,200 mg Hydralazine HCl (Apresoline) 25 mg PO TID [facility] Last Admin: 09/24/18 20:15 Dose: 25 mg Admin: 09/24/18 16:06 Dose: 25 mg Admin: 09/24/18 08:41 Dose: 25 mg Admin: 09/23/18 20:21 Dose: 25 mg Admin: 09/23/18 14:05 Dose: 25 mg Admin: 09/23/18 09:03 Dose: 25 mg Admin: 09/22/18 20:06 Dose: 25 mg Admin: 09/22/18 13:59 Dose: 25 mg Admin: 09/22/18 08:26 Dose: 25 mg Admin: 09/21/18 20:15 Dose: 25 mg Admin: 09/21/18 14:58 Dose: 25 mg Admin: 09/21/18 08:23 Dose: 25 mg Admin: 09/20/18 20:57 Dose: 25 mg Insulin Aspart (Novolog Flexpen) 0 unit SUBCUT ACHS [facility]; Protocol Last Admin: 09/24/18 16:52 Dose: 3 unit Admin: 09/24/18 11:59 Dose: 1 unit Admin: 09/24/18 08:39 Dose: Not Given Admin: 09/23/18 20:29 Dose: 2 unit Admin: 09/23/18 17:07 Dose: 3 unit Admin: 09/23/18 12:00 Dose: 1 unit Admin: 09/23/18 09:00 Dose: 1 unit Admin: 09/22/18 21:14 Dose: 2 unit Admin: 09/22/18 16:49 Dose: 7 unit Admin: 09/22/18 11:43 Dose: 2 unit Admin: 09/22/18 08:14 Dose: Not Given Admin: 09/21/18 20:20 Dose: Not Given Admin: 09/21/18 16:40 Dose: 4 unit Admin: 09/21/18 11:15 Dose: 4 unit Admin: 09/21/18 08:14 Dose: Not Given Admin: 09/20/18 20:55 Dose: Not Given Insulin Glargine (Lantus Solostar (Pen)) 15 unit SUBCUT BID [facility] Last Admin: 09/24/18 08:43 Dose: 15 unit Admin: 09/23/18 20:29 Dose: 15 unit Admin: 09/23/18 09:10 Dose: 15 unit Admin: 09/22/18 21:14 Dose: 15 unit Levetiracetam (Keppra) 500 mg PO BID [facility] Last Admin: 09/24/18 20:13 Dose: 500 mg Admin: 09/24/18 08:42 Dose: 500 mg Admin: 09/23/18 20:19 Dose: 500 mg Admin: 09/23/18 09:04 Dose: 500 mg Admin: 09/22/18 20:06 Dose: 500 mg Admin: 09/22/18 08:25 Dose: 500 mg Admin: 09/21/18 20:16 Dose: 500 mg Admin: 09/21/18 08:23 Dose: 500 mg Admin: 09/20/18 20:57 Dose: 500 mg Losartan Potassium (Cozaar) 100 mg PO DAILY [facility] Last Admin: 09/24/18 08:42 Dose: 100 mg Admin: 09/23/18 09:04 Dose: 100 mg Admin: 09/22/18 08:24 Dose: 100 mg Admin: 09/21/18 08:23 Dose: 100 mg Mupirocin (Bactroban Oint) 1 applic TOP BID [facility] Last Admin: 09/24/18 20:13 Dose: 1 applic Admin: 09/24/18 08:40 Dose: 1 applic Admin: 09/23/18 20:20 Dose: 1 applic Admin: 09/23/18 09:05 Dose: 1 applic Admin: 09/22/18 20:06 Dose: 1 applic Admin: 09/22/18 05:00 Dose: 1 applic Admin: 09/21/18 20:14 Dose: 1 applic Admin: 09/21/18 08:23 Dose: 1 applic Admin: 09/20/18 20:58 Dose: 1 applic Nystatin (Nystop) 1 applic TOP BID [facility] Last Admin: 09/24/18 20:13 Dose: 1 applic Admin: 09/24/18 09:38 Dose: 1 applic Admin: 09/23/18 20:22 Dose: 1 applic Admin: 09/23/18 09:26 Dose: 1 applic Admin: 09/22/18 20:07 Dose: 1 applic Admin: 09/22/18 08:26 Dose: 1 applic Admin: 09/21/18 19:45 Dose: 1 applic Admin: 09/21/18 08:23 Dose: 1 applic Admin: 09/20/18 20:58 Dose: 1 applic Ondansetron HCl (Zofran) 4 mg IV Q8HR PRN PRN Reason: Nausea And Vomiting Ondansetron HCl (Zofran Odt) 4 mg PO Q8HR PRN PRN Reason: Nausea And Vomiting Potassium Chloride (Klor-Con M20) 20 meq PO DAILY [facility] Prednisone (Deltasone) 40 mg PO DAILY [facility] Stop: 09/25/18 09:01 Last Admin: 09/24/18 08:41 Dose: 40 mg Admin: 09/23/18 09:02 Dose: 40 mg Admin: 09/22/18 08:24 Dose: 40 mg Admin: 09/21/18 08:23 Dose: 40 mg Pseudoephedrine HCl (Pseudoephedrine Hcl) 60 mg PO 0900,1500 [facility] Last Admin: 09/24/18 16:07 Dose: 60 mg Admin: 09/24/18 08:43 Dose: 60 mg Admin: 09/23/18 14:05 Dose: 60 mg Admin: 09/23/18 09:05 Dose: 60 mg Admin: 09/22/18 16:50 Dose: 60 mg Sennosides (Senna) 17.2 mg PO BEDTIME [facility] Last Admin: 09/24/18 20:12 Dose: 17.2 mg Admin: 09/23/18 20:20 Dose: 17.2 mg Admin: 09/22/18 20:07 Dose: 17.2 mg Admin: 09/21/18 20:16 Dose: 17.2 mg Admin: 09/20/18 20:58 Dose: 17.2 mg Sodium Chloride (Normal Saline 0.9% Flush) 10 ml IV BID [facility] Last Admin: 09/24/18 20:12 Dose: 10 ml Admin: 09/24/18 09:38 Dose: 10 ml Admin: 09/23/18 20:20 Dose: 10 ml Admin: 09/23/18 09:07 Dose: 10 ml Admin: 09/22/18 20:07 Dose: 10 ml Admin: 09/22/18 09:45 Dose: Not Given Admin: 09/21/18 19:44 Dose: 10 ml Sodium Chloride (Normal Saline 0.9% Flush) 10 ml IV PRN PRN PRN Reason: Flush Last Admin: 09/24/18 03:11 Dose: 10 ml Admin: 09/22/18 06:52 Dose: 10 ml Discontinued Medications Albuterol/Ipratropium (Duoneb) 3 ml INH NOW ONE Stop: 09/20/18 09:22 Last Admin: 09/20/18 10:25 Dose: 3 ml Albuterol/Ipratropium (Duoneb) 3 ml INH [id number] [facility] Last Admin: 09/21/18 16:20 Dose: Not Given Admin: 09/21/18 07:45 Dose: Not Given Admin: 09/20/18 19:14 Dose: 3 ml Enoxaparin Sodium (Lovenox) 40 mg SUBCUT DAILY [facility] Last Admin: 09/20/18 17:36 Dose: 40 mg Enoxaparin Sodium (Lovenox) 40 mg SUBCUT 1700 [facility] Last Admin: 09/21/18 16:39 Dose: 40 mg Furosemide (Lasix) 80 mg IV NOW ONE Stop: 09/20/18 10:41 Last Admin: 09/20/18 11:44 Dose: 80 mg Hydromorphone HCl (Dilaudid) 0.5 mg IV Q6HR PRN PRN Reason: Pain, Moderate (4-6) Last Admin: 09/20/18 20:54 Dose: 0.5 mg Meropenem 1 gm/ Sodium (Chloride) 100 mls @ 200 mls/hr IV Q8H [facility] Last Infusion: 09/22/18 09:46 Dose: 0 mls/hr Admin: 09/22/18 04:10 Dose: 200 mls/hr Infusion: 09/21/18 21:42 Dose: 0 mls/hr Admin: 09/21/18 19:44 Dose: 200 mls/hr Infusion: 09/21/18 18:55 Dose: 0 mls/hr Admin: 09/21/18 12:57 Dose: 200 mls/hr Infusion: 09/21/18 04:58 Dose: 0 mls/hr Admin: 09/21/18 03:56 Dose: 200 mls/hr Infusion: 09/20/18 21:30 Dose: 200 mls/hr Admin: 09/20/18 20:55 Dose: 200 mls/hr Vancomycin HCl 2,000 mg/ (Sodium Chloride) 500 mls @ 250 mls/hr IV NOW ONE Stop: 09/20/18 19:29 Last Admin: 09/20/18 17:37 Dose: 250 mls/hr Vancomycin HCl (Vancomycin) 200 mls @ 200 mls/hr IV Q8H [facility] Last Admin: 09/21/18 18:54 Dose: Not Given Infusion: 09/21/18 12:57 Dose: 0 mls/hr Admin: 09/21/18 11:15 Dose: 200 mls/hr Infusion: 09/21/18 03:56 Dose: 0 mls/hr Admin: 09/21/18 02:02 Dose: 200 mls/hr Vancomycin HCl (Vancomycin) 200 mls @ 200 mls/hr IV Q12H [facility] Last Infusion: 09/23/18 22:13 Dose: 200 mls/hr Admin: 09/23/18 21:13 Dose: 200 mls/hr Infusion: 09/23/18 11:14 Dose: 200 mls/hr Admin: 09/23/18 10:14 Dose: 200 mls/hr Infusion: 09/22/18 22:05 Dose: 200 mls/hr Admin: 09/22/18 21:05 Dose: 200 mls/hr Infusion: 09/22/18 12:45 Dose: 0 mls/hr Admin: 09/22/18 09:51 Dose: 200 mls/hr Infusion: 09/21/18 23:03 Dose: 0 mls/hr Admin: 09/21/18 22:03 Dose: 200 mls/hr Potassium Chloride 40 meq/ (Sodium Chloride) 520 mls @ 130 mls/hr IV NOW ONE Stop: 09/22/18 10:21 Last Infusion: 09/22/18 12:46 Dose: 0 mls/hr Admin: 09/22/18 06:52 Dose: 130 mls/hr Meropenem (Merrem) 1 gm in 50 mls @ 100 mls/hr IV Q8H [facility] Last Infusion: 09/24/18 03:45 Dose: 100 mls/hr Admin: 09/24/18 03:11 Dose: 100 mls/hr Infusion: 09/23/18 20:39 Dose: 100 mls/hr Admin: 09/23/18 20:09 Dose: 100 mls/hr Infusion: 09/23/18 12:36 Dose: 100 mls/hr Admin: 09/23/18 11:36 Dose: 100 mls/hr Infusion: 09/23/18 09:09 Dose: 0 mls/hr Admin: 09/23/18 04:19 Dose: 100 mls/hr Infusion: 09/22/18 21:15 Dose: 0 mls/hr Admin: 09/22/18 20:04 Dose: 100 mls/hr Infusion: 09/22/18 13:44 Dose: 0 mls/hr Admin: 09/22/18 11:19 Dose: 100 mls/hr Potassium Chloride 60 meq/ (Sodium Chloride) 530 mls @ 88.333 mls/hr IV NOW ONE Stop: 09/23/18 18:44 Last Admin: 09/23/18 12:52 Dose: 88.333 mls/hr Insulin Glargine (Lantus Solostar (Pen)) 15 unit SUBCUT 2100 [facility] Last Admin: 09/21/18 20:22 Dose: 15 unit Admin: 09/20/18 20:57 Dose: Not Given Levofloxacin (Levaquin) 500 mg PO NOW ONE Stop: 09/20/18 12:13 Last Admin: 09/20/18 12:34 Dose: 500 mg Morphine Sulfate (Morphine) 2 mg IV NOW ONE Stop: 09/20/18 12:12 Last Admin: 09/20/18 12:34 Dose: 2 mg Morphine Sulfate (Morphine) 2 mg IV NOW ONE Stop: 09/20/18 15:01 Last Admin: 09/20/18 15:07 Dose: 2 mg Nitroglycerin (Nitro-Bid) 1 inch TOP NOW ONE Stop: 09/20/18 12:12 Last Admin: 09/20/18 12:34 Dose: 1 inch Potassium Chloride (Klor-Con M10) 10 meq PO DAILY [facility] Last Admin: 09/24/18 08:40 Dose: 10 meq Admin: 09/23/18 09:05 Dose: 10 meq Admin: 09/22/18 08:24 Dose: 10 meq Admin: 09/21/18 08:24 Dose: 10 meq Vancomycin HCl (Vancomycin Per Pharmacy) 1 request [facility] NOW ONE Stop: 09/20/18 17:06 Last Admin: 09/20/18 17:53 Dose: Not Given Vancomycin HCl (Vancomycin Trough) 1 request [facility] [id number] [facility] Stop: 09/21/18 17:31 Last Admin: 09/21/18 17:41 Dose: Not Given Vancomycin HCl (Vancomycin Trough) 1 request [facility] [id number] [facility] Stop: 09/23/18 09:31 Last Admin: 09/23/18 09:31 Dose: 1 request Vital Signs - 8 hr 09/24/18 15:20 09/24/18 16:00 09/24/18 16:06 Temperature 97.7 F Pulse Rate 78 74 Respiratory Rate 18 Blood Pressure 134/77 134/77 Pulse Oximetry 94 96 09/24/18 16:17 09/24/18 16:59 09/24/18 19:29 Temperature Pulse Rate 72 82 Respiratory Rate 14 Blood Pressure 151/78 H Pulse Oximetry 95 95 09/24/18 19:51 09/24/18 20:14 09/24/18 20:15 Temperature 97.9 F Pulse Rate 83 83 83 Respiratory Rate 16 Blood Pressure 159/78 H 159/78 H 159/78 H Pulse Oximetry 97 MDM - SOB/Dyspnea Medical Records Attestation: I reviewed the patient's medical records. Lab Data Attestation: I reviewed the patient's lab results. Result diagrams: 09/23/18 05:10 09/24/18 04:53 Lab Results 09/20/18 09/20/18 09/20/18 Range/Units 09:30 09:30 09:30 WBC 12.2 H (4.5-11.0) X10^3/uL RBC 4.05 (4.0-5.2) X10^6/uL Hgb 10.5 L (12.0-16.0) g/dL Hct 33.1 L (36-46) % MCV 81.7 (80-100) fL MCH 26.0 (26-34) PG MCHC 31.9 (30-36) % RDW 18.2 H (11.6-14.8) % Plt Count 325 (150-400) X10^3/uL Neut % (Auto) 84.7 H (50-75) % Lymph % (Auto) 9.3 L (25-40) % [place] % (Auto) 5.4 (3-14) % Eos % (Auto) 0.3 L (2-4) % Baso % (Auto) 0.3 (0-2) % Neut # (Auto) 40085 H (2829-3294) /uL Lymph # (Auto) 1100 (1744-4723) /uL [place] # (Auto) 700 (0-900) /uL Eos # (Auto) 0 (0-450) /uL Baso # (Auto) 0 (0-100) /uL Sodium 141 (137-145) mmol/L Potassium 3.8 (3.4-5.1) mmol/L Chloride 94 L (98-107) mmol/L Carbon Dioxide 39 H (22-32) mmol/L BUN 24 H (7-17) mg/dL Creatinine 0.80 (0.52-1.04) mg/dL Estimated GFR > 60.0 (>60) mL/min BUN/Creatinine Ratio 30.0 H (6-22) Glucose 166 H (70-100) mg/dL Hemoglobin A1c (4.0-6.0) % Lactate 1.5 (0.7-2.1) mmol/L Calcium 10.5 H (8.4-10.2) mg/dL Magnesium (1.6-2.3) mg/dL Total Bilirubin 0.5 (0.2-1.3) mg/dL AST 21 (14-36) IU/L ALT 58 H (9-52) IU/L Alkaline Phosphatase 110 (38-126) U/L B-Natriuretic Peptide (<100) Total Protein 8.0 (6.3-8.2) g/dL Albumin 4.2 (3.5-5.0) g/dL Globulin 3.8 (1.7-4.1) g/dL Albumin/Globulin Ratio 1.1 (1.0-2.8) Procalcitonin (<0.5) ng/mL Vancomycin Trough (10-20) ug/mL Chlamy pneumoniae PCR (Not Detect) Adenovirus (PCR) (Not Detect) B.parapertussis DNA PCR (Not Detect) Coronavirus OC43 (PCR) (Not Detect) Coronavirus HKU1 (PCR) (Not Detect) Coronavirus 229E (PCR) (Not Detect) Coronavirus NL63 (PCR) (Not Detect) Human Metapneumovir PCR (Not Detect) Influenza Type A (PCR) (Not Detect) Influenza Type B (PCR) (Not Detect) M. pneumoniae (PCR) (Not Detect) Parainfluenza 1 (PCR) (Not Detect) Parainfluenza 2 (PCR) (Not Detect) Parainfluenza 3 (PCR) (Not Detect) Parainfluenza 4 (PCR) (Not Detect) RSV (PCR) (Not Detect) Entero/Rhino (PCR) (Not Detect) 09/20/18 09/20/18 09/21/18 Range/Units 09:30 09:30 02:35 WBC (4.5-11.0) X10^3/uL RBC (4.0-5.2) X10^6/uL Hgb (12.0-16.0) g/dL Hct (36-46) % MCV (80-100) fL MCH (26-34) PG MCHC (30-36) % RDW (11.6-14.8) % Plt Count (150-400) X10^3/uL Neut % (Auto) (50-75) % Lymph % (Auto) (25-40) % [place] % (Auto) (3-14) % Eos % (Auto) (2-4) % Baso % (Auto) (0-2) % Neut # (Auto) (4542-5443) /uL Lymph # (Auto) (2730-2310) /uL [place] # (Auto) (0-900) /uL Eos # (Auto) (0-450) /uL Baso # (Auto) (0-100) /uL Sodium (137-145) mmol/L Potassium (3.4-5.1) mmol/L Chloride (98-107) mmol/L Carbon Dioxide (22-32) mmol/L BUN (7-17) mg/dL Creatinine (0.52-1.04) mg/dL Estimated GFR (>60) mL/min BUN/Creatinine Ratio (6-22) Glucose (70-100) mg/dL Hemoglobin A1c (4.0-6.0) % Lactate (0.7-2.1) mmol/L Calcium (8.4-10.2) mg/dL Magnesium (1.6-2.3) mg/dL Total Bilirubin (0.2-1.3) mg/dL AST (14-36) IU/L ALT (9-52) IU/L Alkaline Phosphatase (38-126) U/L B-Natriuretic Peptide < 100 (<100) Total Protein (6.3-8.2) g/dL Albumin (3.5-5.0) g/dL Globulin (1.7-4.1) g/dL Albumin/Globulin Ratio (1.0-2.8) Procalcitonin < 0.05 (<0.5) ng/mL Vancomycin Trough (10-20) ug/mL Chlamy pneumoniae PCR Not detected (Not Detect) Adenovirus (PCR) Not detected (Not Detect) B.parapertussis DNA PCR Not detected (Not Detect) Coronavirus OC43 (PCR) Not detected (Not Detect) Coronavirus HKU1 (PCR) Not detected (Not Detect) Coronavirus 229E (PCR) Not detected (Not Detect) Coronavirus NL63 (PCR) Not detected (Not Detect) Human Metapneumovir PCR Not detected (Not Detect) Influenza Type A (PCR) Not detected (Not Detect) Influenza Type B (PCR) Not detected (Not Detect) M. pneumoniae (PCR) Not detected (Not Detect) Parainfluenza 1 (PCR) Not detected (Not Detect) Parainfluenza 2 (PCR) Not detected (Not Detect) Parainfluenza 3 (PCR) Not detected (Not Detect) Parainfluenza 4 (PCR) Not detected (Not Detect) RSV (PCR) Not detected (Not Detect) Entero/Rhino (PCR) Not detected (Not Detect) 09/21/18 09/21/18 09/21/18 Range/Units 05:10 05:10 05:10 WBC 11.2 H (4.5-11.0) X10^3/uL RBC 3.46 L (4.0-5.2) X10^6/uL Hgb 9.0 L (12.0-16.0) g/dL Hct 28.1 L (36-46) % MCV 81.1 (80-100) fL MCH 26.0 (26-34) PG MCHC 32.0 (30-36) % RDW 17.8 H (11.6-14.8) % Plt Count 286 (150-400) X10^3/uL Neut % (Auto) 81.6 H (50-75) % Lymph % (Auto) 10.0 L (25-40) % [place] % (Auto) 7.7 (3-14) % Eos % (Auto) 0.3 L (2-4) % Baso % (Auto) 0.4 (0-2) % Neut # (Auto) 9100 H (9473-2408) /uL Lymph # (Auto) 1100 (6763-7715) /uL [place] # (Auto) 900 (0-900) /uL Eos # (Auto) 0 (0-450) /uL Baso # (Auto) 0 (0-100) /uL Sodium 137 (137-145) mmol/L Potassium 3.5 (3.4-5.1) mmol/L Chloride 92 L (98-107) mmol/L Carbon Dioxide 38 H (22-32) mmol/L BUN 19 H (7-17) mg/dL Creatinine 0.90 (0.52-1.04) mg/dL Estimated GFR > 60.0 (>60) mL/min BUN/Creatinine Ratio 21.1 (6-22) Glucose 118 H (70-100) mg/dL Hemoglobin A1c (4.0-6.0) % Lactate (0.7-2.1) mmol/L Calcium 9.3 (8.4-10.2) mg/dL Magnesium (1.6-2.3) mg/dL Total Bilirubin 0.6 (0.2-1.3) mg/dL AST 15 (14-36) IU/L ALT 42 (9-52) IU/L Alkaline Phosphatase 83 (38-126) U/L B-Natriuretic Peptide < 100 (<100) Total Protein 7.0 (6.3-8.2) g/dL Albumin 3.6 (3.5-5.0) g/dL Globulin 3.4 (1.7-4.1) g/dL Albumin/Globulin Ratio 1.1 (1.0-2.8) Procalcitonin (<0.5) ng/mL Vancomycin Trough (10-20) ug/mL Chlamy pneumoniae PCR (Not Detect) Adenovirus (PCR) (Not Detect) B.parapertussis DNA PCR (Not Detect) Coronavirus OC43 (PCR) (Not Detect) Coronavirus HKU1 (PCR) (Not Detect) Coronavirus 229E (PCR) (Not Detect) Coronavirus NL63 (PCR) (Not Detect) Human Metapneumovir PCR (Not Detect) Influenza Type A (PCR) (Not Detect) Influenza Type B (PCR) (Not Detect) M. pneumoniae (PCR) (Not Detect) Parainfluenza 1 (PCR) (Not Detect) Parainfluenza 2 (PCR) (Not Detect) Parainfluenza 3 (PCR) (Not Detect) Parainfluenza 4 (PCR) (Not Detect) RSV (PCR) (Not Detect) Entero/Rhino (PCR) (Not Detect) 09/21/18 09/22/18 09/22/18 Range/Units 17:30 05:06 05:06 WBC 7.1 (4.5-11.0) X10^3/uL RBC 3.34 L (4.0-5.2) X10^6/uL Hgb 8.8 L (12.0-16.0) g/dL Hct 27.0 L (36-46) % MCV 80.9 (80-100) fL MCH 26.4 (26-34) PG MCHC 32.6 (30-36) % RDW 17.9 H (11.6-14.8) % Plt Count 275 (150-400) X10^3/uL Neut % (Auto) 72.7 (50-75) % Lymph % (Auto) 18.5 L (25-40) % [place] % (Auto) 7.9 (3-14) % Eos % (Auto) 0.2 L (2-4) % Baso % (Auto) 0.7 (0-2) % Neut # (Auto) 5200 (5274-0810) /uL Lymph # (Auto) 1300 (7912-4141) /uL [place] # (Auto) 600 (0-900) /uL Eos # (Auto) 0 (0-450) /uL Baso # (Auto) 100 (0-100) /uL Sodium 138 (137-145) mmol/L Potassium 3.3 L (3.4-5.1) mmol/L Chloride 93 L (98-107) mmol/L Carbon Dioxide 38 H (22-32) mmol/L BUN 22 H (7-17) mg/dL Creatinine 0.90 (0.52-1.04) mg/dL Estimated GFR > 60.0 (>60) mL/min BUN/Creatinine Ratio 24.4 H (6-22) Glucose 118 H (70-100) mg/dL Hemoglobin A1c (4.0-6.0) % Lactate (0.7-2.1) mmol/L Calcium 9.4 (8.4-10.2) mg/dL Magnesium (1.6-2.3) mg/dL Total Bilirubin (0.2-1.3) mg/dL AST (14-36) IU/L ALT (9-52) IU/L Alkaline Phosphatase (38-126) U/L B-Natriuretic Peptide (<100) Total Protein (6.3-8.2) g/dL Albumin (3.5-5.0) g/dL Globulin (1.7-4.1) g/dL Albumin/Globulin Ratio (1.0-2.8) Procalcitonin (<0.5) ng/mL Vancomycin Trough 23.6 H* (10-20) ug/mL Chlamy pneumoniae PCR (Not Detect) Adenovirus (PCR) (Not Detect) B.parapertussis DNA PCR (Not Detect) Coronavirus OC43 (PCR) (Not Detect) Coronavirus HKU1 (PCR) (Not Detect) Coronavirus 229E (PCR) (Not Detect) Coronavirus NL63 (PCR) (Not Detect) Human Metapneumovir PCR (Not Detect) Influenza Type A (PCR) (Not Detect) Influenza Type B (PCR) (Not Detect) M. pneumoniae (PCR) (Not Detect) Parainfluenza 1 (PCR) (Not Detect) Parainfluenza 2 (PCR) (Not Detect) Parainfluenza 3 (PCR) (Not Detect) Parainfluenza 4 (PCR) (Not Detect) RSV (PCR) (Not Detect) Entero/Rhino (PCR) (Not Detect) 09/22/18 09/23/18 09/23/18 Range/Units 05:06 05:10 05:10 WBC 7.5 (4.5-11.0) X10^3/uL RBC 3.78 L (4.0-5.2) X10^6/uL Hgb 9.7 L (12.0-16.0) g/dL Hct 30.5 L (36-46) % MCV 80.9 (80-100) fL MCH 25.8 L (26-34) PG MCHC 31.9 (30-36) % RDW 17.6 H (11.6-14.8) % Plt Count 319 (150-400) X10^3/uL Neut % (Auto) 74.6 (50-75) % Lymph % (Auto) 17.2 L (25-40) % [place] % (Auto) 7.0 (3-14) % Eos % (Auto) 0.2 L (2-4) % Baso % (Auto) 1.0 (0-2) % Neut # (Auto) 5600 (4530-7953) /uL Lymph # (Auto) 1300 (5673-3396) /uL [place] # (Auto) 500 (0-900) /uL Eos # (Auto) 0 (0-450) /uL Baso # (Auto) 100 (0-100) /uL Sodium (137-145) mmol/L Potassium (3.4-5.1) mmol/L Chloride (98-107) mmol/L Carbon Dioxide (22-32) mmol/L BUN (7-17) mg/dL Creatinine (0.52-1.04) mg/dL Estimated GFR (>60) mL/min BUN/Creatinine Ratio (6-22) Glucose (70-100) mg/dL Hemoglobin A1c (4.0-6.0) % Lactate (0.7-2.1) mmol/L Calcium (8.4-10.2) mg/dL Magnesium 1.9 (1.6-2.3) mg/dL Total Bilirubin (0.2-1.3) mg/dL AST (14-36) IU/L ALT (9-52) IU/L Alkaline Phosphatase (38-126) U/L B-Natriuretic Peptide (<100) Total Protein (6.3-8.2) g/dL Albumin (3.5-5.0) g/dL Globulin (1.7-4.1) g/dL Albumin/Globulin Ratio (1.0-2.8) Procalcitonin < 0.05 (<0.5) ng/mL Vancomycin Trough (10-20) ug/mL Chlamy pneumoniae PCR (Not Detect) Adenovirus (PCR) (Not Detect) B.parapertussis DNA PCR (Not Detect) Coronavirus OC43 (PCR) (Not Detect) Coronavirus HKU1 (PCR) (Not Detect) Coronavirus 229E (PCR) (Not Detect) Coronavirus NL63 (PCR) (Not Detect) Human Metapneumovir PCR (Not Detect) Influenza Type A (PCR) (Not Detect) Influenza Type B (PCR) (Not Detect) M. pneumoniae (PCR) (Not Detect) Parainfluenza 1 (PCR) (Not Detect) Parainfluenza 2 (PCR) (Not Detect) Parainfluenza 3 (PCR) (Not Detect) Parainfluenza 4 (PCR) (Not Detect) RSV (PCR) (Not Detect) Entero/Rhino (PCR) (Not Detect) 09/23/18 09/23/18 09/23/18 Range/Units 05:10 05:10 09:20 WBC (4.5-11.0) X10^3/uL RBC (4.0-5.2) X10^6/uL Hgb (12.0-16.0) g/dL Hct (36-46) % MCV (80-100) fL MCH (26-34) PG MCHC (30-36) % RDW (11.6-14.8) % Plt Count (150-400) X10^3/uL Neut % (Auto) (50-75) % Lymph % (Auto) (25-40) % [place] % (Auto) (3-14) % Eos % (Auto) (2-4) % Baso % (Auto) (0-2) % Neut # (Auto) (6328-7912) /uL Lymph # (Auto) (9668-6717) /uL [place] # (Auto) (0-900) /uL Eos # (Auto) (0-450) /uL Baso # (Auto) (0-100) /uL Sodium 139 (137-145) mmol/L Potassium 3.3 L (3.4-5.1) mmol/L Chloride 95 L (98-107) mmol/L Carbon Dioxide 40 H* (22-32) mmol/L BUN 19 H (7-17) mg/dL Creatinine 0.60 (0.52-1.04) mg/dL Estimated GFR > 60.0 (>60) mL/min BUN/Creatinine Ratio 31.7 H (6-22) Glucose 151 H (70-100) mg/dL Hemoglobin A1c 6.2 H (4.0-6.0) % Lactate (0.7-2.1) mmol/L Calcium 9.6 (8.4-10.2) mg/dL Magnesium 1.7 (1.6-2.3) mg/dL Total Bilirubin 0.4 (0.2-1.3) mg/dL AST 14 (14-36) IU/L ALT 29 (9-52) IU/L Alkaline Phosphatase 83 (38-126) U/L B-Natriuretic Peptide (<100) Total Protein 7.3 (6.3-8.2) g/dL Albumin 3.8 (3.5-5.0) g/dL Globulin 3.5 (1.7-4.1) g/dL Albumin/Globulin Ratio 1.1 (1.0-2.8) Procalcitonin (<0.5) ng/mL Vancomycin Trough 17.1 (10-20) ug/mL Chlamy pneumoniae PCR (Not Detect) Adenovirus (PCR) (Not Detect) B.parapertussis DNA PCR (Not Detect) Coronavirus OC43 (PCR) (Not Detect) Coronavirus HKU1 (PCR) (Not Detect) Coronavirus 229E (PCR) (Not Detect) Coronavirus NL63 (PCR) (Not Detect) Human Metapneumovir PCR (Not Detect) Influenza Type A (PCR) (Not Detect) Influenza Type B (PCR) (Not Detect) M. pneumoniae (PCR) (Not Detect) Parainfluenza 1 (PCR) (Not Detect) Parainfluenza 2 (PCR) (Not Detect) Parainfluenza 3 (PCR) (Not Detect) Parainfluenza 4 (PCR) (Not Detect) RSV (PCR) (Not Detect) Entero/Rhino (PCR) (Not Detect) 09/24/18 Range/Units 04:53 WBC (4.5-11.0) X10^3/uL RBC (4.0-5.2) X10^6/uL Hgb (12.0-16.0) g/dL Hct (36-46) % MCV (80-100) fL MCH (26-34) PG MCHC (30-36) % RDW (11.6-14.8) % Plt Count (150-400) X10^3/uL Neut % (Auto) (50-75) % Lymph % (Auto) (25-40) % [place] % (Auto) (3-14) % Eos % (Auto) (2-4) % Baso % (Auto) (0-2) % Neut # (Auto) (3562-2044) /uL Lymph # (Auto) (5953-4699) /uL [place] # (Auto) (0-900) /uL Eos # (Auto) (0-450) /uL Baso # (Auto) (0-100) /uL Sodium 139 (137-145) mmol/L Potassium 3.7 (3.4-5.1) mmol/L Chloride 93 L (98-107) mmol/L Carbon Dioxide 41 H* (22-32) mmol/L BUN 17 (7-17) mg/dL Creatinine 0.60 (0.52-1.04) mg/dL Estimated GFR > 60.0 (>60) mL/min BUN/Creatinine Ratio 28.3 H (6-22) Glucose 107 H (70-100) mg/dL Hemoglobin A1c (4.0-6.0) % Lactate (0.7-2.1) mmol/L Calcium 9.8 (8.4-10.2) mg/dL Magnesium (1.6-2.3) mg/dL Total Bilirubin (0.2-1.3) mg/dL AST (14-36) IU/L ALT (9-52) IU/L Alkaline Phosphatase (38-126) U/L B-Natriuretic Peptide (<100) Total Protein (6.3-8.2) g/dL Albumin (3.5-5.0) g/dL Globulin (1.7-4.1) g/dL Albumin/Globulin Ratio (1.0-2.8) Procalcitonin (<0.5) ng/mL Vancomycin Trough (10-20) ug/mL Chlamy pneumoniae PCR (Not Detect) Adenovirus (PCR) (Not Detect) B.parapertussis DNA PCR (Not Detect) Coronavirus OC43 (PCR) (Not Detect) Coronavirus HKU1 (PCR) (Not Detect) Coronavirus 229E (PCR) (Not Detect) Coronavirus NL63 (PCR) (Not Detect) Human Metapneumovir PCR (Not Detect) Influenza Type A (PCR) (Not Detect) Influenza Type B (PCR) (Not Detect) M. pneumoniae (PCR) (Not Detect) Parainfluenza 1 (PCR) (Not Detect) Parainfluenza 2 (PCR) (Not Detect) Parainfluenza 3 (PCR) (Not Detect) Parainfluenza 4 (PCR) (Not Detect) RSV (PCR) (Not Detect) Entero/Rhino (PCR) (Not Detect) Point of Care Testing Glucose POC 218 Urine Dip Bedside Urine Glucose Negative Bedside Urine Bilirubin - Negative Bedside Urine Ketone - Negative Urine Specific [place] 1.020 Bedside Urine Occult Blood - Negative Bedside Urine pH 6.0 Bedside Urine Protein +/- 15 Bedside Urine Urobilinogen - Negative Bedside Urine Nitrite - Negative Bedside Urine Leukocytes - Negative Esterase Imaging Data Chest x-ray: Radiologist's impression: PROCEDURE: XR CHEST 2V INDICATIONS: shortness of breath TECHNIQUE: 2 views of the chest were acquired. COMPARISON: [facility], CR, XR CHEST 1 VIEW, 09/13/2018, 19:54. [facility], CR, XR CHEST 1V, 05/27/2018, 21:52. FINDINGS: Surgical changes and devices: None. Lungs and pleura: No definite pleural effusion. No pneumothorax identified. Bandlike consolidation present in the left upper lobe. There is also increased retrocardiac and right lower lobe opacity. This appears increased since 09/13/18. Lung volumes are low Mediastinum: Mediastinal contours are normal. Heart size is stable. Bones and chest wall: No suspicious bony abnormalities. Soft tissues appear unremarkable. IMPRESSION: Increased bibasilar and left upper lobe patchy consolidative opacities which could represent pneumonia versus atelectasis and or aspiration since 09/13/18. Low lung volumes and widespread mild groundglass opacities. This is suspicious for superimposed pulmonary edema although please correlate clinically. If there is persistent clinical diagnostic uncertainty, continued surveillance with short interval chest radiographs after treatment is recommended. Dictated by: Grupo Vences M.D. on 09/20/2018 at 9:14 Approved by: Discharge Plan Departure Patient Disposition: Admitted As Inpatient Clinical Impression: Pneumonia Qualifiers: Pneumonia type: due to unspecified organism Laterality: bilateral Lung location: lower lobe of lung Qualified Code(s): J18.1 - Lobar pneumonia, unspecified organism Discharge Date/Time: 09/20/18 16:06 Interventions: ED Discharge Assessment Last Done: 09/20/18 16:06 Admit Date/Time: 09/20/18 16:17 Admit Provider: Jena Mena
--- NOTE | 2018-09-24 21:24 | ED_ITS ---
HPI - SOB/Dyspnea General Chief Complaint: Shortness of Breath/Dyspnea Stated Complaint: Shortness of Breathe Time Seen by Provider: 09/20/18 09:48 Source: patient and EMS Mode of arrival: EMS Limitations: no limitations History of Present Illness Patient complains of shortness of breath for the last several days. She states that her breathing just feels ?tight?. She denies any fevers. No productive cough. Patient has a history of CHF, as well as pneumonia. She states that her Lasix was recently increased. She denies any nausea vomiting; no abdominal pain. No chest pain. No other complaints at this time. Related Data Home Medications Medication Instructions Recorded Confirmed amlodipine 10 mg PO DAILY 09/20/18 09/20/18 ascorbic acid (vitamin C) [Vitamin 500 mg PO DAILY 09/20/18 09/20/18 C With Shona Hips] carvedilol 25 mg PO BID 09/20/18 09/20/18 ferrous sulfate 325 mg PO DAILY 09/20/18 09/20/18 furosemide 20 mg PO DAILY 09/20/18 09/20/18 furosemide 40 mg PO [id number] 09/20/18 09/20/18 hydralazine 25 mg PO TID 09/20/18 09/20/18 insulin lispro 10 unit SUBCUT 3-4XD 09/20/18 09/20/18 levetiracetam 500 mg PO BID 09/20/18 09/20/18 levofloxacin 500 mg PO DAILYX7 09/20/18 09/20/18 losartan 100 mg PO DAILY 09/20/18 09/20/18 mupirocin 1 applic TOPICAL DIRECTED 09/20/18 09/20/18 nystatin 1 applic TOPICAL [id number] 09/20/18 09/20/18 potassium chloride 10 meq PO DAILY 09/20/18 09/20/18 Allergies Allergy/AdvReac Type Severity Reaction Status Date / Time naproxen Allergy Mild MADE MY Verified 05/26/18 10:43 FACE NUMB meperidine Allergy Unknown Verified 05/26/18 10:43 Penicillins Allergy Unknown Verified 05/26/18 10:43 Sulfa (Sulfonamide Allergy Unknown Verified 05/26/18 10:43 Antibiotics) diphenhydramine AdvReac Shakiness Verified 05/26/18 10:43 [From Benadryl] Review of Systems Constitutional Denies chills, Denies fever(s), Denies lethargy and Denies weakness Eyes Denies change in vision, Denies eye discharge, Denies irritation and Denies loss of vision ENT Ears, Nose, Mouth, and Throat: Denies change in voice, Denies neck pain and Denies sore throat Cardiovascular Denies chest pain, Denies irregular heart rhythm, Denies lightheadedness, Denies palpitations, Reports dyspnea, Reports dyspnea on exertion and Denies orthopnea Respiratory Reports cough, Reports dyspnea, Reports dyspnea on exertion and Reports wheezing Gastrointestinal Gastrointestinal: Denies abdominal pain, Denies change in bowel habits, Denies diarrhea, Denies nausea and Denies vomiting Genitourinary Denies hematuria, Denies flank pain, Denies urinary incontinence and Denies ur inary urgency Musculoskeletal Denies neck pain Integumentary/Breasts Denies pruritus, Denies erythema, Denies rash and Denies wounds Neurologic Denies confusion, Denies loss of vision and Denies weakness Psychiatric Denies anxiety, Denies confusion, Denies depression, Denies homicidal ideation and Denies suicidal ideation Endocrine Denies palpitations Hematologic/Lymphatic Denies easy bruising Allergic/Immunologic Reports wheezing [facility] Medical History (Updated 09/24/18 @ 21:18 by Ángela Worthington MD) History of congestive heart failure (Acute) Chronic respiratory failure (Acute) Hypoxia (Acute) Meningioma (Acute) Diabetes (Acute) Morbidly obese (Acute) COPD (chronic obstructive pulmonary disease) (Acute) Hypertension (Acute) Surgical History (Updated 09/24/18 @ 21:18 by Ángela Worthington MD) Status post cholecystectomy (Acute) Status post appendectomy (Acute) Family History (Updated 09/20/18 @ 17:18 by Jena Mena MD) Daughter No problems noted. Son No problems noted. Mother Diabetes mellitus Congestive heart failure Father Diabetes mellitus Social History household members: significant other, family and children Smoking Status: Never smoker Social History household members: significant other, family and children Smoking Status: Never smoker Exam Initial Vital Signs Initial Vital Signs: Vital Signs Temperature 97.4 F L 09/20/18 09:19 Pulse Rate 90 09/20/18 09:19 Respiratory Rate 24 09/20/18 09:19 Blood Pressure 177/77 H 09/20/18 09:19 Pulse Oximetry 87 L 09/20/18 09:19 Const General: cooperative and well developed Nutritional Appearance: well nourished Orientation: alert, awake, oriented x3 and not confused [facility] Head: normocephalic and atraumatic Ears: external ears normal Nose: external nose normal and No nasal discharge Face and sinus: face symmetric and No dry mucous membranes Mouth: oral mucosae normal and moist mucous membranes Teeth and gingiva: dentition normal Eyes General: appearance normal, both eyes and all related structures Eyelids: eyelids normal Conjunctivae: conjunctivae normal Sclera: sclerae normal Pupils: PERRL EOM: EOM intact bilaterally Neck Neck: normal visual inspection, trachea midline, No lymphadenopathy, No midline deformity and No JVD Lymphatic: No lymphedema Chest Chest: normal inspection of the chest Resp Effort & Inspection: able to speak in complete sentences (Short sentences, occasionally just phrases), labored, no respiratory distress and no use of accessory muscles Auscultation: clear to auscultation bilaterally, no rales, no rhonchi and wheezes (Slight, diffuse, with decreased air movement) Cardio Rate: regular rate Rhythm: regular rhythm Heart Sounds: no click, no gallops, no murmurs and no rubs Pulses: normal peripheral pulses GI Inspection: non-distended Palpation: soft, no hepatosplenomegaly, No guarding, No pulsatile mass and No tender Auscultation: normal bowel sounds Back/Spine/Pelvis Back: No CVA tenderness Cervical Spine: cervical ROM normal and No pain with cervical ROM Thoracic/Lumbar Spine: thoracic and lumbar spine normal to inspection Skin General: no rashes or lesions noted, No jaundice and No petechiae Neuro General: alert, oriented x3, gait normal and no focal motor deficits Speech: speech normal Extrem General: full ROM, no clubbing, cyanosis or edema, no pedal edema and no calf tenderness Psych Appearance: well kempt Mental Status: mental status grossly normal Attitude: cooperative Thought Content: normal and suicidality Judgment: judgment good Course Course Narrative: Patient was worked up for her difficulty breathing with labs, chest x-ray, and EKG. Patient was found, somewhat surprisingly, to have a normal BNP, though her symptoms seem most indicative of a CHF exacerbation. Her white blood cell count was normal, but chest x-ray did show probable pneumonia and possible pulmonary edema, as well. Patient was treated with antibiotics. She had already been treated with Lasix, and had put out a fair amount of urine, and was actually feeling a little bit better. However, the patient still became very dyspneic with any physical exertion, and her oxygen saturation was low, and I felt she should be admitted to the hospital. I spoke with hospitalist on- call, who agreed to admit the patient to hospitalist service. Orders Ordered: Acetaminophen (Tylenol) 650 mg PO Q6HR PRN PRN Reason: As Needed for Fever/Mild Pain Last Admin: 09/21/18 05:18 Dose: 650 mg Hydrocodone Bitart/Acetaminophen ([place] 5/325) 1 tab PO Q4HR PRN PRN Reason: Pain, Moderate (4-6) Last Admin: 09/24/18 12:57 Dose: 1 tab Admin: 09/24/18 08:47 Dose: 1 tab Admin: 09/24/18 04:44 Dose: 1 tab Admin: 09/24/18 00:18 Dose: 1 tab Admin: 09/23/18 17:51 Dose: 1 tab Admin: 09/23/18 11:41 Dose: 1 tab Admin: 09/23/18 07:44 Dose: 1 tab Admin: 09/23/18 04:19 Dose: 1 tab Admin: 09/23/18 00:19 Dose: 1 tab Admin: 09/22/18 16:00 Dose: 1 tab Admin: 09/22/18 11:45 Dose: 1 tab Admin: 09/22/18 07:57 Dose: 1 tab Admin: 09/22/18 04:10 Dose: 1 tab Admin: 09/22/18 00:06 Dose: 1 tab Admin: 09/21/18 19:44 Dose: 1 tab Admin: 09/21/18 14:26 Dose: 1 tab Admin: 09/21/18 07:54 Dose: 1 tab Admin: 09/21/18 03:56 Dose: 1 tab Admin: 09/20/18 23:47 Dose: 1 tab Admin: 09/20/18 17:30 Dose: 1 tab Albuterol (Ventolin) 2.5 mg INH [id number] PRN PRN Reason: Shortness Of Breath Last Admin: 09/23/18 15:05 Dose: 2.5 mg Admin: 09/23/18 11:10 Dose: 2.5 mg Admin: 09/23/18 07:55 Dose: 2.5 mg Admin: 09/22/18 03:34 Dose: 2.5 mg Albuterol/Ipratropium (Duoneb) 3 ml INH [id number] [facility] Last Admin: 09/24/18 16:17 Dose: 3 ml Admin: 09/24/18 16:16 Dose: Not Given Admin: 09/24/18 12:49 Dose: 3 ml Admin: 09/24/18 08:25 Dose: 3 ml Admin: 09/24/18 08:23 Dose: Not Given Admin: 09/23/18 18:56 Dose: 3 ml Amlodipine Besylate (Norvasc) 10 mg PO DAILY [facility] Last Admin: 09/24/18 08:41 Dose: 10 mg Admin: 09/23/18 09:01 Dose: 10 mg Admin: 09/22/18 08:25 Dose: 10 mg Admin: 09/21/18 08:23 Dose: 10 mg Bisacodyl (Dulcolax) 10 mg PO DAILY PRN PRN Reason: Constipation Bisacodyl (Dulcolax) 10 mg AL DAILY PRN PRN Reason: Constipation Carvedilol (Coreg) 25 mg PO BID [facility] Last Admin: 09/24/18 20:14 Dose: 25 mg Admin: 09/24/18 08:41 Dose: 25 mg Admin: 09/23/18 20:21 Dose: 25 mg Admin: 09/23/18 09:01 Dose: 25 mg Admin: 09/22/18 20:06 Dose: 25 mg Admin: 09/22/18 08:25 Dose: 25 mg Admin: 09/21/18 20:14 Dose: 25 mg Admin: 09/21/18 08:23 Dose: 25 mg Admin: 09/20/18 20:56 Dose: 25 mg Ciprofloxacin (Cipro) 500 mg PO BID [facility] Last Admin: 09/24/18 20:11 Dose: 500 mg Admin: 09/24/18 09:37 Dose: 500 mg Dextrose (D50w) 25 gm IV PRN PRN PRN Reason: Hypoglycemia Docusate Sodium (Colace) 100 mg PO BID [facility] Last Admin: 09/24/18 20:12 Dose: 100 mg Admin: 09/24/18 08:42 Dose: 100 mg Admin: 09/23/18 20:18 Dose: 100 mg Admin: 09/23/18 09:02 Dose: 100 mg Admin: 09/22/18 20:06 Dose: 100 mg Admin: 09/22/18 08:25 Dose: 100 mg Admin: 09/21/18 20:15 Dose: 100 mg Admin: 09/21/18 08:23 Dose: 100 mg Admin: 09/20/18 20:56 Dose: 100 mg Enoxaparin Sodium (Lovenox) 40 mg SUBCUT 0600,1800 [facility] Last Admin: 09/24/18 20:11 Dose: 40 mg Admin: 09/24/18 05:50 Dose: 40 mg Admin: 09/23/18 17:07 Dose: 40 mg Admin: 09/23/18 06:27 Dose: 40 mg Admin: 09/22/18 18:36 Dose: 40 mg Fluconazole (Diflucan) 150 mg PO 1700 [facility] Stop: 09/25/18 17:01 Last Admin: 09/24/18 16:07 Dose: 150 mg Admin: 09/23/18 17:07 Dose: 150 mg Furosemide (Lasix) 40 mg PO BID [facility] Last Admin: 09/24/18 20:12 Dose: 40 mg Admin: 09/24/18 08:43 Dose: 40 mg Admin: 09/23/18 20:18 Dose: 40 mg Admin: 09/23/18 09:03 Dose: 40 mg Admin: 09/22/18 20:06 Dose: 40 mg Admin: 09/22/18 08:25 Dose: 40 mg Admin: 09/21/18 20:15 Dose: 40 mg Admin: 09/21/18 08:23 Dose: 40 mg Admin: 09/20/18 20:56 Dose: 40 mg Guaifenesin (Mucinex) 1,200 mg PO BID [facility] Last Admin: 09/24/18 20:12 Dose: 1,200 mg Admin: 09/24/18 08:43 Dose: 1,200 mg Admin: 09/23/18 20:19 Dose: 1,200 mg Admin: 09/23/18 09:03 Dose: 1,200 mg Admin: 09/22/18 20:07 Dose: 1,200 mg Hydralazine HCl (Apresoline) 25 mg PO TID [facility] Last Admin: 09/24/18 20:15 Dose: 25 mg Admin: 09/24/18 16:06 Dose: 25 mg Admin: 09/24/18 08:41 Dose: 25 mg Admin: 09/23/18 20:21 Dose: 25 mg Admin: 09/23/18 14:05 Dose: 25 mg Admin: 09/23/18 09:03 Dose: 25 mg Admin: 09/22/18 20:06 Dose: 25 mg Admin: 09/22/18 13:59 Dose: 25 mg Admin: 09/22/18 08:26 Dose: 25 mg Admin: 09/21/18 20:15 Dose: 25 mg Admin: 09/21/18 14:58 Dose: 25 mg Admin: 09/21/18 08:23 Dose: 25 mg Admin: 09/20/18 20:57 Dose: 25 mg Insulin Aspart (Novolog Flexpen) 0 unit SUBCUT ACHS [facility]; Protocol Last Admin: 09/24/18 16:52 Dose: 3 unit Admin: 09/24/18 11:59 Dose: 1 unit Admin: 09/24/18 08:39 Dose: Not Given Admin: 09/23/18 20:29 Dose: 2 unit Admin: 09/23/18 17:07 Dose: 3 unit Admin: 09/23/18 12:00 Dose: 1 unit Admin: 09/23/18 09:00 Dose: 1 unit Admin: 09/22/18 21:14 Dose: 2 unit Admin: 09/22/18 16:49 Dose: 7 unit Admin: 09/22/18 11:43 Dose: 2 unit Admin: 09/22/18 08:14 Dose: Not Given Admin: 09/21/18 20:20 Dose: Not Given Admin: 09/21/18 16:40 Dose: 4 unit Admin: 09/21/18 11:15 Dose: 4 unit Admin: 09/21/18 08:14 Dose: Not Given Admin: 09/20/18 20:55 Dose: Not Given Insulin Glargine (Lantus Solostar (Pen)) 15 unit SUBCUT BID [facility] Last Admin: 09/24/18 08:43 Dose: 15 unit Admin: 09/23/18 20:29 Dose: 15 unit Admin: 09/23/18 09:10 Dose: 15 unit Admin: 09/22/18 21:14 Dose: 15 unit Levetiracetam (Keppra) 500 mg PO BID [facility] Last Admin: 09/24/18 20:13 Dose: 500 mg Admin: 09/24/18 08:42 Dose: 500 mg Admin: 09/23/18 20:19 Dose: 500 mg Admin: 09/23/18 09:04 Dose: 500 mg Admin: 09/22/18 20:06 Dose: 500 mg Admin: 09/22/18 08:25 Dose: 500 mg Admin: 09/21/18 20:16 Dose: 500 mg Admin: 09/21/18 08:23 Dose: 500 mg Admin: 09/20/18 20:57 Dose: 500 mg Losartan Potassium (Cozaar) 100 mg PO DAILY [facility] Last Admin: 09/24/18 08:42 Dose: 100 mg Admin: 09/23/18 09:04 Dose: 100 mg Admin: 09/22/18 08:24 Dose: 100 mg Admin: 09/21/18 08:23 Dose: 100 mg Mupirocin (Bactroban Oint) 1 applic TOP BID [facility] Last Admin: 09/24/18 20:13 Dose: 1 applic Admin: 09/24/18 08:40 Dose: 1 applic Admin: 09/23/18 20:20 Dose: 1 applic Admin: 09/23/18 09:05 Dose: 1 applic Admin: 09/22/18 20:06 Dose: 1 applic Admin: 09/22/18 05:00 Dose: 1 applic Admin: 09/21/18 20:14 Dose: 1 applic Admin: 09/21/18 08:23 Dose: 1 applic Admin: 09/20/18 20:58 Dose: 1 applic Nystatin (Nystop) 1 applic TOP BID [facility] Last Admin: 09/24/18 20:13 Dose: 1 applic Admin: 09/24/18 09:38 Dose: 1 applic Admin: 09/23/18 20:22 Dose: 1 applic Admin: 09/23/18 09:26 Dose: 1 applic Admin: 09/22/18 20:07 Dose: 1 applic Admin: 09/22/18 08:26 Dose: 1 applic Admin: 09/21/18 19:45 Dose: 1 applic Admin: 09/21/18 08:23 Dose: 1 applic Admin: 09/20/18 20:58 Dose: 1 applic Ondansetron HCl (Zofran) 4 mg IV Q8HR PRN PRN Reason: Nausea And Vomiting Ondansetron HCl (Zofran Odt) 4 mg PO Q8HR PRN PRN Reason: Nausea And Vomiting Potassium Chloride (Klor-Con M20) 20 meq PO DAILY [facility] Prednisone (Deltasone) 40 mg PO DAILY [facility] Stop: 09/25/18 09:01 Last Admin: 09/24/18 08:41 Dose: 40 mg Admin: 09/23/18 09:02 Dose: 40 mg Admin: 09/22/18 08:24 Dose: 40 mg Admin: 09/21/18 08:23 Dose: 40 mg Pseudoephedrine HCl (Pseudoephedrine Hcl) 60 mg PO 0900,1500 [facility] Last Admin: 09/24/18 16:07 Dose: 60 mg Admin: 09/24/18 08:43 Dose: 60 mg Admin: 09/23/18 14:05 Dose: 60 mg Admin: 09/23/18 09:05 Dose: 60 mg Admin: 09/22/18 16:50 Dose: 60 mg Sennosides (Senna) 17.2 mg PO BEDTIME [facility] Last Admin: 09/24/18 20:12 Dose: 17.2 mg Admin: 09/23/18 20:20 Dose: 17.2 mg Admin: 09/22/18 20:07 Dose: 17.2 mg Admin: 09/21/18 20:16 Dose: 17.2 mg Admin: 09/20/18 20:58 Dose: 17.2 mg Sodium Chloride (Normal Saline 0.9% Flush) 10 ml IV BID [facility] Last Admin: 09/24/18 20:12 Dose: 10 ml Admin: 09/24/18 09:38 Dose: 10 ml Admin: 09/23/18 20:20 Dose: 10 ml Admin: 09/23/18 09:07 Dose: 10 ml Admin: 09/22/18 20:07 Dose: 10 ml Admin: 09/22/18 09:45 Dose: Not Given Admin: 09/21/18 19:44 Dose: 10 ml Sodium Chloride (Normal Saline 0.9% Flush) 10 ml IV PRN PRN PRN Reason: Flush Last Admin: 09/24/18 03:11 Dose: 10 ml Admin: 09/22/18 06:52 Dose: 10 ml Discontinued Medications Albuterol/Ipratropium (Duoneb) 3 ml INH NOW ONE Stop: 09/20/18 09:22 Last Admin: 09/20/18 10:25 Dose: 3 ml Albuterol/Ipratropium (Duoneb) 3 ml INH [id number] [facility] Last Admin: 09/21/18 16:20 Dose: Not Given Admin: 09/21/18 07:45 Dose: Not Given Admin: 09/20/18 19:14 Dose: 3 ml Enoxaparin Sodium (Lovenox) 40 mg SUBCUT DAILY [facility] Last Admin: 09/20/18 17:36 Dose: 40 mg Enoxaparin Sodium (Lovenox) 40 mg SUBCUT 1700 [facility] Last Admin: 09/21/18 16:39 Dose: 40 mg Furosemide (Lasix) 80 mg IV NOW ONE Stop: 09/20/18 10:41 Last Admin: 09/20/18 11:44 Dose: 80 mg Hydromorphone HCl (Dilaudid) 0.5 mg IV Q6HR PRN PRN Reason: Pain, Moderate (4-6) Last Admin: 09/20/18 20:54 Dose: 0.5 mg Meropenem 1 gm/ Sodium (Chloride) 100 mls @ 200 mls/hr IV Q8H [facility] Last Infusion: 09/22/18 09:46 Dose: 0 mls/hr Admin: 09/22/18 04:10 Dose: 200 mls/hr Infusion: 09/21/18 21:42 Dose: 0 mls/hr Admin: 09/21/18 19:44 Dose: 200 mls/hr Infusion: 09/21/18 18:55 Dose: 0 mls/hr Admin: 09/21/18 12:57 Dose: 200 mls/hr Infusion: 09/21/18 04:58 Dose: 0 mls/hr Admin: 09/21/18 03:56 Dose: 200 mls/hr Infusion: 09/20/18 21:30 Dose: 200 mls/hr Admin: 09/20/18 20:55 Dose: 200 mls/hr Vancomycin HCl 2,000 mg/ (Sodium Chloride) 500 mls @ 250 mls/hr IV NOW ONE Stop: 09/20/18 19:29 Last Admin: 09/20/18 17:37 Dose: 250 mls/hr Vancomycin HCl (Vancomycin) 200 mls @ 200 mls/hr IV Q8H [facility] Last Admin: 09/21/18 18:54 Dose: Not Given Infusion: 09/21/18 12:57 Dose: 0 mls/hr Admin: 09/21/18 11:15 Dose: 200 mls/hr Infusion: 09/21/18 03:56 Dose: 0 mls/hr Admin: 09/21/18 02:02 Dose: 200 mls/hr Vancomycin HCl (Vancomycin) 200 mls @ 200 mls/hr IV Q12H [facility] Last Infusion: 09/23/18 22:13 Dose: 200 mls/hr Admin: 09/23/18 21:13 Dose: 200 mls/hr Infusion: 09/23/18 11:14 Dose: 200 mls/hr Admin: 09/23/18 10:14 Dose: 200 mls/hr Infusion: 09/22/18 22:05 Dose: 200 mls/hr Admin: 09/22/18 21:05 Dose: 200 mls/hr Infusion: 09/22/18 12:45 Dose: 0 mls/hr Admin: 09/22/18 09:51 Dose: 200 mls/hr Infusion: 09/21/18 23:03 Dose: 0 mls/hr Admin: 09/21/18 22:03 Dose: 200 mls/hr Potassium Chloride 40 meq/ (Sodium Chloride) 520 mls @ 130 mls/hr IV NOW ONE Stop: 09/22/18 10:21 Last Infusion: 09/22/18 12:46 Dose: 0 mls/hr Admin: 09/22/18 06:52 Dose: 130 mls/hr Meropenem (Merrem) 1 gm in 50 mls @ 100 mls/hr IV Q8H [facility] Last Infusion: 09/24/18 03:45 Dose: 100 mls/hr Admin: 09/24/18 03:11 Dose: 100 mls/hr Infusion: 09/23/18 20:39 Dose: 100 mls/hr Admin: 09/23/18 20:09 Dose: 100 mls/hr Infusion: 09/23/18 12:36 Dose: 100 mls/hr Admin: 09/23/18 11:36 Dose: 100 mls/hr Infusion: 09/23/18 09:09 Dose: 0 mls/hr Admin: 09/23/18 04:19 Dose: 100 mls/hr Infusion: 09/22/18 21:15 Dose: 0 mls/hr Admin: 09/22/18 20:04 Dose: 100 mls/hr Infusion: 09/22/18 13:44 Dose: 0 mls/hr Admin: 09/22/18 11:19 Dose: 100 mls/hr Potassium Chloride 60 meq/ (Sodium Chloride) 530 mls @ 88.333 mls/hr IV NOW ONE Stop: 09/23/18 18:44 Last Admin: 09/23/18 12:52 Dose: 88.333 mls/hr Insulin Glargine (Lantus Solostar (Pen)) 15 unit SUBCUT 2100 [facility] Last Admin: 09/21/18 20:22 Dose: 15 unit Admin: 09/20/18 20:57 Dose: Not Given Levofloxacin (Levaquin) 500 mg PO NOW ONE Stop: 09/20/18 12:13 Last Admin: 09/20/18 12:34 Dose: 500 mg Morphine Sulfate (Morphine) 2 mg IV NOW ONE Stop: 09/20/18 12:12 Last Admin: 09/20/18 12:34 Dose: 2 mg Morphine Sulfate (Morphine) 2 mg IV NOW ONE Stop: 09/20/18 15:01 Last Admin: 09/20/18 15:07 Dose: 2 mg Nitroglycerin (Nitro-Bid) 1 inch TOP NOW ONE Stop: 09/20/18 12:12 Last Admin: 09/20/18 12:34 Dose: 1 inch Potassium Chloride (Klor-Con M10) 10 meq PO DAILY [facility] Last Admin: 09/24/18 08:40 Dose: 10 meq Admin: 09/23/18 09:05 Dose: 10 meq Admin: 09/22/18 08:24 Dose: 10 meq Admin: 09/21/18 08:24 Dose: 10 meq Vancomycin HCl (Vancomycin Per Pharmacy) 1 request MIS NOW ONE Stop: 09/20/18 17:06 Last Admin: 09/20/18 17:53 Dose: Not Given Vancomycin HCl (Vancomycin Trough) 1 request MIS 1730 [facility] Stop: 09/21/18 17:31 Last Admin: 09/21/18 17:41 Dose: Not Given Vancomycin HCl (Vancomycin Trough) 1 request MIS 0930 [facility] Stop: 09/23/18 09:31 Last Admin: 09/23/18 09:31 Dose: 1 request Vital Signs - 8 hr 09/24/18 15:20 09/24/18 16:00 09/24/18 16:06 Temperature 97.7 F Pulse Rate 78 74 Respiratory Rate 18 Blood Pressure 134/77 134/77 Pulse Oximetry 94 96 09/24/18 16:17 09/24/18 16:59 09/24/18 19:29 Temperature Pulse Rate 72 82 Respiratory Rate 14 Blood Pressure 151/78 H Pulse Oximetry 95 95 09/24/18 19:51 09/24/18 20:14 09/24/18 20:15 Temperature 97.9 F Pulse Rate 83 83 83 Respiratory Rate 16 Blood Pressure 159/78 H 159/78 H 159/78 H Pulse Oximetry 97 MDM - SOB/Dyspnea Medical Records Attestation: I reviewed the patient's medical records. Lab Data Attestation: I reviewed the patient's lab results. Result diagrams: 09/23/18 05:10 09/24/18 04:53 Lab Results 09/20/18 09/20/18 09/20/18 Range/Units 09:30 09:30 09:30 WBC 12.2 H (4.5-11.0) X10^3/uL RBC 4.05 (4.0-5.2) X10^6/uL Hgb 10.5 L (12.0-16.0) g/dL Hct 33.1 L (36-46) % MCV 81.7 (80-100) fL MCH 26.0 (26-34) PG MCHC 31.9 (30-36) % RDW 18.2 H (11.6-14.8) % Plt Count 325 (150-400) X10^3/uL Neut % (Auto) 84.7 H (50-75) % Lymph % (Auto) 9.3 L (25-40) % [place] % (Auto) 5.4 (3-14) % Eos % (Auto) 0.3 L (2-4) % Baso % (Auto) 0.3 (0-2) % Neut # (Auto) 05595 H (1469-7369) /uL Lymph # (Auto) 1100 (1617-1868) /uL [place] # (Auto) 700 (0-900) /uL Eos # (Auto) 0 (0-450) /uL Baso # (Auto) 0 (0-100) /uL Sodium 141 (137-145) mmol/L Potassium 3.8 (3.4-5.1) mmol/L Chloride 94 L (98-107) mmol/L Carbon Dioxide 39 H (22-32) mmol/L BUN 24 H (7-17) mg/dL Creatinine 0.80 (0.52-1.04) mg/dL Estimated GFR > 60.0 (>60) mL/min BUN/Creatinine Ratio 30.0 H (6-22) Glucose 166 H (70-100) mg/dL Hemoglobin A1c (4.0-6.0) % Lactate 1.5 (0.7-2.1) mmol/L Calcium 10.5 H (8.4-10.2) mg/dL Magnesium (1.6-2.3) mg/dL Total Bilirubin 0.5 (0.2-1.3) mg/dL AST 21 (14-36) IU/L ALT 58 H (9-52) IU/L Alkaline Phosphatase 110 (38-126) U/L B-Natriuretic Peptide (<100) Total Protein 8.0 (6.3-8.2) g/dL Albumin 4.2 (3.5-5.0) g/dL Globulin 3.8 (1.7-4.1) g/dL Albumin/Globulin Ratio 1.1 (1.0-2.8) Procalcitonin (<0.5) ng/mL Vancomycin Trough (10-20) ug/mL Chlamy pneumoniae PCR (Not Detect) Adenovirus (PCR) (Not Detect) B.parapertussis DNA PCR (Not Detect) Coronavirus OC43 (PCR) (Not Detect) Coronavirus HKU1 (PCR) (Not Detect) Coronavirus 229E (PCR) (Not Detect) Coronavirus NL63 (PCR) (Not Detect) Human Metapneumovir PCR (Not Detect) Influenza Type A (PCR) (Not Detect) Influenza Type B (PCR) (Not Detect) M. pneumoniae (PCR) (Not Detect) Parainfluenza 1 (PCR) (Not Detect) Parainfluenza 2 (PCR) (Not Detect) Parainfluenza 3 (PCR) (Not Detect) Parainfluenza 4 (PCR) (Not Detect) RSV (PCR) (Not Detect) Entero/Rhino (PCR) (Not Detect) 09/20/18 09/20/18 09/21/18 Range/Units 09:30 09:30 02:35 WBC (4.5-11.0) X10^3/uL RBC (4.0-5.2) X10^6/uL Hgb (12.0-16.0) g/dL Hct (36-46) % MCV (80-100) fL MCH (26-34) PG MCHC (30-36) % RDW (11.6-14.8) % Plt Count (150-400) X10^3/uL Neut % (Auto) (50-75) % Lymph % (Auto) (25-40) % [place] % (Auto) (3-14) % Eos % (Auto) (2-4) % Baso % (Auto) (0-2) % Neut # (Auto) (5775-3110) /uL Lymph # (Auto) (7241-2564) /uL [place] # (Auto) (0-900) /uL Eos # (Auto) (0-450) /uL Baso # (Auto) (0-100) /uL Sodium (137-145) mmol/L Potassium (3.4-5.1) mmol/L Chloride (98-107) mmol/L Carbon Dioxide (22-32) mmol/L BUN (7-17) mg/dL Creatinine (0.52-1.04) mg/dL Estimated GFR (>60) mL/min BUN/Creatinine Ratio (6-22) Glucose (70-100) mg/dL Hemoglobin A1c (4.0-6.0) % Lactate (0.7-2.1) mmol/L Calcium (8.4-10.2) mg/dL Magnesium (1.6-2.3) mg/dL Total Bilirubin (0.2-1.3) mg/dL AST (14-36) IU/L ALT (9-52) IU/L Alkaline Phosphatase (38-126) U/L B-Natriuretic Peptide < 100 (<100) Total Protein (6.3-8.2) g/dL Albumin (3.5-5.0) g/dL Globulin (1.7-4.1) g/dL Albumin/Globulin Ratio (1.0-2.8) Procalcitonin < 0.05 (<0.5) ng/mL Vancomycin Trough (10-20) ug/mL Chlamy pneumoniae PCR Not detected (Not Detect) Adenovirus (PCR) Not detected (Not Detect) B.parapertussis DNA PCR Not detected (Not Detect) Coronavirus OC43 (PCR) Not detected (Not Detect) Coronavirus HKU1 (PCR) Not detected (Not Detect) Coronavirus 229E (PCR) Not detected (Not Detect) Coronavirus NL63 (PCR) Not detected (Not Detect) Human Metapneumovir PCR Not detected (Not Detect) Influenza Type A (PCR) Not detected (Not Detect) Influenza Type B (PCR) Not detected (Not Detect) M. pneumoniae (PCR) Not detected (Not Detect) Parainfluenza 1 (PCR) Not detected (Not Detect) Parainfluenza 2 (PCR) Not detected (Not Detect) Parainfluenza 3 (PCR) Not detected (Not Detect) Parainfluenza 4 (PCR) Not detected (Not Detect) RSV (PCR) Not detected (Not Detect) Entero/Rhino (PCR) Not detected (Not Detect) 09/21/18 09/21/18 09/21/18 Range/Units 05:10 05:10 05:10 WBC 11.2 H (4.5-11.0) X10^3/uL RBC 3.46 L (4.0-5.2) X10^6/uL Hgb 9.0 L (12.0-16.0) g/dL Hct 28.1 L (36-46) % MCV 81.1 (80-100) fL MCH 26.0 (26-34) PG MCHC 32.0 (30-36) % RDW 17.8 H (11.6-14.8) % Plt Count 286 (150-400) X10^3/uL Neut % (Auto) 81.6 H (50-75) % Lymph % (Auto) 10.0 L (25-40) % [place] % (Auto) 7.7 (3-14) % Eos % (Auto) 0.3 L (2-4) % Baso % (Auto) 0.4 (0-2) % Neut # (Auto) 9100 H (0044-1133) /uL Lymph # (Auto) 1100 (5923-5141) /uL [place] # (Auto) 900 (0-900) /uL Eos # (Auto) 0 (0-450) /uL Baso # (Auto) 0 (0-100) /uL Sodium 137 (137-145) mmol/L Potassium 3.5 (3.4-5.1) mmol/L Chloride 92 L (98-107) mmol/L Carbon Dioxide 38 H (22-32) mmol/L BUN 19 H (7-17) mg/dL Creatinine 0.90 (0.52-1.04) mg/dL Estimated GFR > 60.0 (>60) mL/min BUN/Creatinine Ratio 21.1 (6-22) Glucose 118 H (70-100) mg/dL Hemoglobin A1c (4.0-6.0) % Lactate (0.7-2.1) mmol/L Calcium 9.3 (8.4-10.2) mg/dL Magnesium (1.6-2.3) mg/dL Total Bilirubin 0.6 (0.2-1.3) mg/dL AST 15 (14-36) IU/L ALT 42 (9-52) IU/L Alkaline Phosphatase 83 (38-126) U/L B-Natriuretic Peptide < 100 (<100) Total Protein 7.0 (6.3-8.2) g/dL Albumin 3.6 (3.5-5.0) g/dL Globulin 3.4 (1.7-4.1) g/dL Albumin/Globulin Ratio 1.1 (1.0-2.8) Procalcitonin (<0.5) ng/mL Vancomycin Trough (10-20) ug/mL Chlamy pneumoniae PCR (Not Detect) Adenovirus (PCR) (Not Detect) B.parapertussis DNA PCR (Not Detect) Coronavirus OC43 (PCR) (Not Detect) Coronavirus HKU1 (PCR) (Not Detect) Coronavirus 229E (PCR) (Not Detect) Coronavirus NL63 (PCR) (Not Detect) Human Metapneumovir PCR (Not Detect) Influenza Type A (PCR) (Not Detect) Influenza Type B (PCR) (Not Detect) M. pneumoniae (PCR) (Not Detect) Parainfluenza 1 (PCR) (Not Detect) Parainfluenza 2 (PCR) (Not Detect) Parainfluenza 3 (PCR) (Not Detect) Parainfluenza 4 (PCR) (Not Detect) RSV (PCR) (Not Detect) Entero/Rhino (PCR) (Not Detect) 09/21/18 09/22/18 09/22/18 Range/Units 17:30 05:06 05:06 WBC 7.1 (4.5-11.0) X10^3/uL RBC 3.34 L (4.0-5.2) X10^6/uL Hgb 8.8 L (12.0-16.0) g/dL Hct 27.0 L (36-46) % MCV 80.9 (80-100) fL MCH 26.4 (26-34) PG MCHC 32.6 (30-36) % RDW 17.9 H (11.6-14.8) % Plt Count 275 (150-400) X10^3/uL Neut % (Auto) 72.7 (50-75) % Lymph % (Auto) 18.5 L (25-40) % [place] % (Auto) 7.9 (3-14) % Eos % (Auto) 0.2 L (2-4) % Baso % (Auto) 0.7 (0-2) % Neut # (Auto) 5200 (6724-1656) /uL Lymph # (Auto) 1300 (8008-0185) /uL [place] # (Auto) 600 (0-900) /uL Eos # (Auto) 0 (0-450) /uL Baso # (Auto) 100 (0-100) /uL Sodium 138 (137-145) mmol/L Potassium 3.3 L (3.4-5.1) mmol/L Chloride 93 L (98-107) mmol/L Carbon Dioxide 38 H (22-32) mmol/L BUN 22 H (7-17) mg/dL Creatinine 0.90 (0.52-1.04) mg/dL Estimated GFR > 60.0 (>60) mL/min BUN/Creatinine Ratio 24.4 H (6-22) Glucose 118 H (70-100) mg/dL Hemoglobin A1c (4.0-6.0) % Lactate (0.7-2.1) mmol/L Calcium 9.4 (8.4-10.2) mg/dL Magnesium (1.6-2.3) mg/dL Total Bilirubin (0.2-1.3) mg/dL AST (14-36) IU/L ALT (9-52) IU/L Alkaline Phosphatase (38-126) U/L B-Natriuretic Peptide (<100) Total Protein (6.3-8.2) g/dL Albumin (3.5-5.0) g/dL Globulin (1.7-4.1) g/dL Albumin/Globulin Ratio (1.0-2.8) Procalcitonin (<0.5) ng/mL Vancomycin Trough 23.6 H* (10-20) ug/mL Chlamy pneumoniae PCR (Not Detect) Adenovirus (PCR) (Not Detect) B.parapertussis DNA PCR (Not Detect) Coronavirus OC43 (PCR) (Not Detect) Coronavirus HKU1 (PCR) (Not Detect) Coronavirus 229E (PCR) (Not Detect) Coronavirus NL63 (PCR) (Not Detect) Human Metapneumovir PCR (Not Detect) Influenza Type A (PCR) (Not Detect) Influenza Type B (PCR) (Not Detect) M. pneumoniae (PCR) (Not Detect) Parainfluenza 1 (PCR) (Not Detect) Parainfluenza 2 (PCR) (Not Detect) Parainfluenza 3 (PCR) (Not Detect) Parainfluenza 4 (PCR) (Not Detect) RSV (PCR) (Not Detect) Entero/Rhino (PCR) (Not Detect) 09/22/18 09/23/18 09/23/18 Range/Units 05:06 05:10 05:10 WBC 7.5 (4.5-11.0) X10^3/uL RBC 3.78 L (4.0-5.2) X10^6/uL Hgb 9.7 L (12.0-16.0) g/dL Hct 30.5 L (36-46) % MCV 80.9 (80-100) fL MCH 25.8 L (26-34) PG MCHC 31.9 (30-36) % RDW 17.6 H (11.6-14.8) % Plt Count 319 (150-400) X10^3/uL Neut % (Auto) 74.6 (50-75) % Lymph % (Auto) 17.2 L (25-40) % [place] % (Auto) 7.0 (3-14) % Eos % (Auto) 0.2 L (2-4) % Baso % (Auto) 1.0 (0-2) % Neut # (Auto) 5600 (3292-2386) /uL Lymph # (Auto) 1300 (9239-9741) /uL [place] # (Auto) 500 (0-900) /uL Eos # (Auto) 0 (0-450) /uL Baso # (Auto) 100 (0-100) /uL Sodium (137-145) mmol/L Potassium (3.4-5.1) mmol/L Chloride (98-107) mmol/L Carbon Dioxide (22-32) mmol/L BUN (7-17) mg/dL Creatinine (0.52-1.04) mg/dL Estimated GFR (>60) mL/min BUN/Creatinine Ratio (6-22) Glucose (70-100) mg/dL Hemoglobin A1c (4.0-6.0) % Lactate (0.7-2.1) mmol/L Calcium (8.4-10.2) mg/dL Magnesium 1.9 (1.6-2.3) mg/dL Total Bilirubin (0.2-1.3) mg/dL AST (14-36) IU/L ALT (9-52) IU/L Alkaline Phosphatase (38-126) U/L B-Natriuretic Peptide (<100) Total Protein (6.3-8.2) g/dL Albumin (3.5-5.0) g/dL Globulin (1.7-4.1) g/dL Albumin/Globulin Ratio (1.0-2.8) Procalcitonin < 0.05 (<0.5) ng/mL Vancomycin Trough (10-20) ug/mL Chlamy pneumoniae PCR (Not Detect) Adenovirus (PCR) (Not Detect) B.parapertussis DNA PCR (Not Detect) Coronavirus OC43 (PCR) (Not Detect) Coronavirus HKU1 (PCR) (Not Detect) Coronavirus 229E (PCR) (Not Detect) Coronavirus NL63 (PCR) (Not Detect) Human Metapneumovir PCR (Not Detect) Influenza Type A (PCR) (Not Detect) Influenza Type B (PCR) (Not Detect) M. pneumoniae (PCR) (Not Detect) Parainfluenza 1 (PCR) (Not Detect) Parainfluenza 2 (PCR) (Not Detect) Parainfluenza 3 (PCR) (Not Detect) Parainfluenza 4 (PCR) (Not Detect) RSV (PCR) (Not Detect) Entero/Rhino (PCR) (Not Detect) 09/23/18 09/23/18 09/23/18 Range/Units 05:10 05:10 09:20 WBC (4.5-11.0) X10^3/uL RBC (4.0-5.2) X10^6/uL Hgb (12.0-16.0) g/dL Hct (36-46) % MCV (80-100) fL MCH (26-34) PG MCHC (30-36) % RDW (11.6-14.8) % Plt Count (150-400) X10^3/uL Neut % (Auto) (50-75) % Lymph % (Auto) (25-40) % [place] % (Auto) (3-14) % Eos % (Auto) (2-4) % Baso % (Auto) (0-2) % Neut # (Auto) (3976-4417) /uL Lymph # (Auto) (6690-0142) /uL [place] # (Auto) (0-900) /uL Eos # (Auto) (0-450) /uL Baso # (Auto) (0-100) /uL Sodium 139 (137-145) mmol/L Potassium 3.3 L (3.4-5.1) mmol/L Chloride 95 L (98-107) mmol/L Carbon Dioxide 40 H* (22-32) mmol/L BUN 19 H (7-17) mg/dL Creatinine 0.60 (0.52-1.04) mg/dL Estimated GFR > 60.0 (>60) mL/min BUN/Creatinine Ratio 31.7 H (6-22) Glucose 151 H (70-100) mg/dL Hemoglobin A1c 6.2 H (4.0-6.0) % Lactate (0.7-2.1) mmol/L Calcium 9.6 (8.4-10.2) mg/dL Magnesium 1.7 (1.6-2.3) mg/dL Total Bilirubin 0.4 (0.2-1.3) mg/dL AST 14 (14-36) IU/L ALT 29 (9-52) IU/L Alkaline Phosphatase 83 (38-126) U/L B-Natriuretic Peptide (<100) Total Protein 7.3 (6.3-8.2) g/dL Albumin 3.8 (3.5-5.0) g/dL Globulin 3.5 (1.7-4.1) g/dL Albumin/Globulin Ratio 1.1 (1.0-2.8) Procalcitonin (<0.5) ng/mL Vancomycin Trough 17.1 (10-20) ug/mL Chlamy pneumoniae PCR (Not Detect) Adenovirus (PCR) (Not Detect) B.parapertussis DNA PCR (Not Detect) Coronavirus OC43 (PCR) (Not Detect) Coronavirus HKU1 (PCR) (Not Detect) Coronavirus 229E (PCR) (Not Detect) Coronavirus NL63 (PCR) (Not Detect) Human Metapneumovir PCR (Not Detect) Influenza Type A (PCR) (Not Detect) Influenza Type B (PCR) (Not Detect) M. pneumoniae (PCR) (Not Detect) Parainfluenza 1 (PCR) (Not Detect) Parainfluenza 2 (PCR) (Not Detect) Parainfluenza 3 (PCR) (Not Detect) Parainfluenza 4 (PCR) (Not Detect) RSV (PCR) (Not Detect) Entero/Rhino (PCR) (Not Detect) 09/24/18 Range/Units 04:53 WBC (4.5-11.0) X10^3/uL RBC (4.0-5.2) X10^6/uL Hgb (12.0-16.0) g/dL Hct (36-46) % MCV (80-100) fL MCH (26-34) PG MCHC (30-36) % RDW (11.6-14.8) % Plt Count (150-400) X10^3/uL Neut % (Auto) (50-75) % Lymph % (Auto) (25-40) % [place] % (Auto) (3-14) % Eos % (Auto) (2-4) % Baso % (Auto) (0-2) % Neut # (Auto) (6726-3382) /uL Lymph # (Auto) (0316-5678) /uL [place] # (Auto) (0-900) /uL Eos # (Auto) (0-450) /uL Baso # (Auto) (0-100) /uL Sodium 139 (137-145) mmol/L Potassium 3.7 (3.4-5.1) mmol/L Chloride 93 L (98-107) mmol/L Carbon Dioxide 41 H* (22-32) mmol/L BUN 17 (7-17) mg/dL Creatinine 0.60 (0.52-1.04) mg/dL Estimated GFR > 60.0 (>60) mL/min BUN/Creatinine Ratio 28.3 H (6-22) Glucose 107 H (70-100) mg/dL Hemoglobin A1c (4.0-6.0) % Lactate (0.7-2.1) mmol/L Calcium 9.8 (8.4-10.2) mg/dL Magnesium (1.6-2.3) mg/dL Total Bilirubin (0.2-1.3) mg/dL AST (14-36) IU/L ALT (9-52) IU/L Alkaline Phosphatase (38-126) U/L B-Natriuretic Peptide (<100) Total Protein (6.3-8.2) g/dL Albumin (3.5-5.0) g/dL Globulin (1.7-4.1) g/dL Albumin/Globulin Ratio (1.0-2.8) Procalcitonin (<0.5) ng/mL Vancomycin Trough (10-20) ug/mL Chlamy pneumoniae PCR (Not Detect) Adenovirus (PCR) (Not Detect) B.parapertussis DNA PCR (Not Detect) Coronavirus OC43 (PCR) (Not Detect) Coronavirus HKU1 (PCR) (Not Detect) Coronavirus 229E (PCR) (Not Detect) Coronavirus NL63 (PCR) (Not Detect) Human Metapneumovir PCR (Not Detect) Influenza Type A (PCR) (Not Detect) Influenza Type B (PCR) (Not Detect) M. pneumoniae (PCR) (Not Detect) Parainfluenza 1 (PCR) (Not Detect) Parainfluenza 2 (PCR) (Not Detect) Parainfluenza 3 (PCR) (Not Detect) Parainfluenza 4 (PCR) (Not Detect) RSV (PCR) (Not Detect) Entero/Rhino (PCR) (Not Detect) Point of Care Testing Glucose POC 218 Urine Dip Bedside Urine Glucose Negative Bedside Urine Bilirubin - Negative Bedside Urine Ketone - Negative Urine Specific [place] 1.020 Bedside Urine Occult Blood - Negative Bedside Urine pH 6.0 Bedside Urine Protein +/- 15 Bedside Urine Urobilinogen - Negative Bedside Urine Nitrite - Negative Bedside Urine Leukocytes - Negative Esterase Imaging Data Chest x-ray: Radiologist's impression: PROCEDURE: XR CHEST 2V INDICATIONS: shortness of breath TECHNIQUE: 2 views of the chest were acquired. COMPARISON: [facility], CR, XR CHEST 1 VIEW, 09/13/2018, 19:54. [facility], CR, XR CHEST 1V, 05/27/2018, 21:52. FINDINGS: Surgical changes and devices: None. Lungs and pleura: No definite pleural effusion. No pneumothorax identified. Bandlike consolidation present in the left upper lobe. There is also increased retrocardiac and right lower lobe opacity. This appears increased since 09/13/18. Lung volumes are low Mediastinum: Mediastinal contours are normal. Heart size is stable. Bones and chest wall: No suspicious bony abnormalities. Soft tissues appear unremarkable. IMPRESSION: Increased bibasilar and left upper lobe patchy consolidative opacities which could represent pneumonia versus atelectasis and or aspiration since 09/13/18. Low lung volumes and widespread mild groundglass opacities. This is suspicious for superimposed pulmonary edema although please correlate clinically. If there is persistent clinical diagnostic uncertainty, continued surveillance with short interval chest radiographs after treatment is recommended. Dictated by: Grupo Vences M.D. on 09/20/2018 at 9:14 Approved by: Discharge Plan Departure Patient Disposition: Admitted As Inpatient Clinical Impression: Pneumonia Qualifiers: Pneumonia type: due to unspecified organism Laterality: bilateral Lung location: lower lobe of lung Qualified Code(s): J18.1 - Lobar pneumonia, unspecified organism Discharge Date/Time: 09/20/18 16:06 Interventions: ED Discharge Assessment Last Done: 09/20/18 16:06 Admit Date/Time: 09/20/18 16:17 Admit Provider: Jena Mena
--- NOTE | 2018-09-24 22:42 | PC.NURSE ---
Shira shift note: NO BM this shift, administered scheduled Stool softener and gentle laxative stimulant PO. Offered PRN Dulcolax PO/ or OR, patient refused. Discussed importance of further interventions for bowel mobility, verbalized understanding. States will wait until the morning after breakfast and be open further discussed interventions.
[2018-09-25] VITALS (21 sets, daily range): BP systolic 122–156; BP diastolic 59–90; PULSE 66–85; RESP 14–22; TEMP 36.4–37; O2SAT 90–97
[2018-09-25] MEDS: HYDROCODONE/ACET 5/325 TABLET 1 TAB PO ×4 (02:55→18:19)
[2018-09-25] MEDS: ENOXAPARIN 40 MG/0.4 ML SYRINGE SUBCUT ×2 (06:48→21:30)
[2018-09-25] MEDS: ALBUTEROL/IPRATROPIUM 3 ML AMPUL INH ×4 (07:45→19:31)
[2018-09-25] MEDS: AMLODIPINE 5 MG TABLET 10 MG PO (09:16)
[2018-09-25] MEDS: DOCUSATE 100 MG CAPSULE PO ×2 (09:17→21:32)
[2018-09-25] MEDS: CIPROFLOXACIN 500 MG TABLET PO ×2 (09:17→21:31)
[2018-09-25] MEDS: CARVEDILOL 25 MG TABLET PO ×2 (09:17→21:31)
[2018-09-25] MEDS: FUROSEMIDE 40 MG TABLET PO ×2 (09:18→21:32)
[2018-09-25] MEDS: HYDRALAZINE 25 MG TABLET PO ×3 (09:19→21:30)
[2018-09-25] MEDS: INSULIN GLARGINE 100 UNIT/ML 3ML PEN 15 UNIT SUBCUT ×2 (09:19→21:40)
[2018-09-25] MEDS: guaiFENesin ER 600 MG TAB 1200 MG PO ×2 (09:19→21:32)
[2018-09-25] MEDS: levETIRAcetam 250 MG TABLET 500 MG PO ×2 (09:20→21:33)
[2018-09-25] MEDS: MUPIROCIN 22 GM OINT 1 APPLIC TOP ×2 (09:21→21:36)
[2018-09-25] MEDS: LOSARTAN 50 MG TABLET 100 MG PO (09:21)
[2018-09-25] MEDS: NYSTATIN POWDER 30 GM 1 APPLIC TOP ×2 (09:22→21:37)
[2018-09-25] MEDS: predniSONE 20 MG TABLET 40 MG PO (09:22)
[2018-09-25] MEDS: POTASSIUM CHLORIDE 20 MEQ TAB PO (09:22)
[2018-09-25] MEDS: BISACODYL 5 MG TABLET 10 MG PO (09:27)
[2018-09-25] MEDS: PSEUDOEPHEDRINE 30 MG TABLET 60 MG PO ×2 (09:32→18:03)
[2018-09-25] MEDS: MAGNESIUM HYDROXIDE 30 ML UDC PO (09:41)
[2018-09-25] MEDS: SODIUM CHLORIDE 0.9% FLUSH 10 ML IV ×2 (09:44→21:36)
--- NOTE | 2018-09-25 11:25 | ST.IPDYTX ---
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 O2 via nasal canula. Pt remarked that she is feeling better. Dr. Mena noted in inpatient rounds that pt's lungs bilaterally presented with increased ronchi. Treatment Liquids Trialed Pierron Administration Type Controlled Cup Sip Oral Strategies Upright at 90 degrees Controlled Bite/Sip Size Other Pharyngeal Strategies Sitting Upright (90 deg) Small Bites and Sips Alternate Liquids/Solids Additional Dysphagia Treatment Reminded pt to eat slowly as Strategies bolting her foods increases aspiration risk Treatment Activities Strongly suspect silent aspiration. Pt reported to have increased bilateral ronchi. Unable to get MBS secondary to size restriction of the flouroscopy chair. Trial of Pierron thick liquids provided. Pt appeared to safely tolerate the Pierron thick liquids. No cough/choke observed following trial. It is difficult to rule out continued aspiration even with thickened liquids; however pt has a non-productive cough that may be related to her primary diagnoses or her swallow. Instrumental assessment would be needed in order to determine her aspiration risk. Following trialed cranberry juice and H2O with flavor, both thickened to NTL, the pt noted that she could live with the thickened liquids at home. Pt education provided re: silent aspiration, repetative pneumonia and her risk for aspiration without s/ sx. Assessment Patient Response to Treatment Excellent Diet Recommendations Recommendations Downgrade Liquid Order Comment Pierron thick liquids only Liquids Order Pierron Diet Order Dysphagia Advanced Medication Recommendations As Tolerated Whole in Carrier Aspiration Precautions Recommended Precautions Upright at 90 Degrees Frequent Rest Periods Small Bites/Sips Additional Precautions SMALL DIAMETER STRAW ONLY - NO LARGE STRAWS Treatment Plan Placement Recommendation after Discharge Residential Facility Appropriate for Continued Therapy Yes Dysphagia Goals Pt will safely tolerate least- restrictive diet without overt s/sx aspiration to meet nutritional and hydration needs.
[2018-09-25] MEDS: INSULIN ASPART 100 UNIT/ML INSULN PEN SUBCUT ×3 (12:10→21:40)
--- NOTE | 2018-09-25 12:12 | PT.IPTN ---
Current Diagnoses Benign neoplasm of meninges, unspecified (09/20/18) Type 2 diabetes mellitus without complications (09/20/18) Morbid (severe) obesity due to excess calories (09/20/18) Essential (primary) hypertension (09/20/18) Heart failure, unspecified (09/20/18) Pneumonia, unspecified organism (09/20/18) Chronic obstructive pulmonary disease with (acute) exacerbation (09/20/18) Chronic obstructive pulmonary disease, unspecified (09/20/18) Pneumonitis due to inhalation of food and vomit (09/20/18) Acute and chronic respiratory failure, unspecified whether with hypoxia or hypercapnia (09/20/18) Physical Therapy Treatment Note M2 PT-IP Current Condition Start: 09/21/18 14:18 Freq: NEEDED Status: Active Protocol: Document 09/21/18 13:15 AB (Rec: 09/21/18 14:41 AB [id number]) Physical Therapy Current Condition Current Condition Evaluation Date 09/21/18 Treatment Diagnosis PNA; COPD; difficulty in walking Onset Date 09/20/18 Precautions Other Precautions O2 sat : O2 at 4L/min at this time M3 PT-IP Subjective Start: 09/21/18 14:18 Freq: NEEDED Status: Active Protocol: Document 09/25/18 11:30 CLB (Rec: 09/25/18 12:12 CLB [id number]) Subjective Physical Therapy Visit Type Type Treatment Note Visit Start Time 11:30 Visit Stop Time 11:55 Total Visit Minutes 25 Number of DRAFT ROLLER PICKER Visits 2 Physical Therapy Visit Comments Patient Comments Pt needs to use BR. M4 PT-IP Mobility and Gait Start: 09/21/18 14:18 Freq: NEEDED Status: Active Protocol: Document 09/25/18 11:30 CLB (Rec: 09/25/18 12:12 CLB [id number]) PT-Transfer Assessment Sit to and From Stand Sit to and from Stand Standby Assistance 1 Person Assistance Use of Upper Extremities Equipment Transfer Assistive Device Gait Belt Front Wheeled Walker Orthotic/Prosthetic Devices or Brace: No Transfers Transfer Destination Chair Toilet Transfer Technique Stand Step Pivot Transfer Ability Level of Assist Standby Assistance 1 Person Assistance Use of Upper Extremities Comments Mobility Comments Pt able to stand from chair using rocking for momentum but was able to perform safely with SBA. Pt able to stand at sink with walker and wash hands with good standing balance. Gait Assessment Gait Gait Assistance Required: Standby Assistance Contact Guard Assist 1 Person Assist Distance (Feet) 15 Assistive Devices Assistive Device Gait Belt Front Wheeled Walker Gait Deviations General Gait Pattern Antalgic Decreased Stride Length Decreased Feet Clearance Flexed Trunk Wide Based Gait Factors Limiting Gait Function Factors Limiting Gait Function Decreased Activity Tolerance Decreased Strength Comments Gait Comments Pt with fatigued quickly today and ambulated to toilet, then to sink and back to chair. Pt on 2 L O2 satruations 87-92% during activity able to recover with PLB within 1 minute. M5 PT-IP Objective Assessments Start: 09/21/18 14:18 Freq: NEEDED Status: Active Protocol: Document 09/21/18 13:15 AB (Rec: 09/21/18 14:41 AB [id number]) Orientation Orientation/Cognition Level of Alertness Alert Orientation Name Age Birthday Month Date Year Day of Week Place Situation Language Function Ability Hard of Hearing Safety Awareness Decreased Safety Awareness Gross Range of Motion Lower Extremity ROM Assessment Within Functional Limits Strength Lower Extremity Strength Assessment Bilaterally Impaired Comments Strength Comments LLE: 4-/5 RLE: 3+/5 M6 PT-IP Treatment Start: 09/21/18 14:18 Freq: NEEDED Status: Active Protocol: Document 09/24/18 10:45 CLB (Rec: 09/24/18 15:00 CLB [id number]) Physical Therapy Treatment Exercises Exercises Ankle Pumps Seated Knee Flexion/Extension M7 PT-IP Assessment and Plan Start: 09/21/18 14:18 Freq: NEEDED Status: Active Protocol: Document 09/25/18 11:30 CLB (Rec: 09/25/18 12:12 CLB [id number]) PT Summary Assessment and Plan Summary Assessment Summary Pt with increased fatigue today not able to ambulate further than to toilet then sink and back to chair. Pt has good safety awareness and balance. Daughter was not present for CG training she had come to hospital at 11:00 and left before CG training at 12:00. Goals Bed Mobility Goal Standby Assistance Transfer Goal Standby Assistance Front Wheeled Walker Gait Goal Contact Guard Assistance Front Wheel Walker Gait Distance 50 Other Goals up/down 1 step to enter CGA Days to Meet Goals 10 Frequency of Treatment Frequency Of Treatment Once a Day Treatment Plan Other Recommendations and Next Treatment gait, step up/down 1 step with Focus walker, trial 4WW Recommendations To Nursing Amount of Assist Needed 1 Person Assist Discharge Recommendations PT Discharge Recommendations Home with 24/7 Assist SNF Rehab Other Discharge Recommendations Home with 24/7 assist and HH PT vs SNF Equipment Needed for Home Before FWW if not safe with 4WW Discharge
--- NOTE | 2018-09-25 13:06 | PC.NURSE ---
Day shift: Pt was given a cup of prune juice this AM to help with BM. Pt had a very large BM at approx 1255 today. Pt described it has having 3 BM's all at the same time. Pt reports she is feeling much better now.
--- NOTE | 2018-09-25 13:07 | OT.IP.TRT ---
Current Diagnoses Benign neoplasm of meninges, unspecified (09/20/18) Type 2 diabetes mellitus without complications (09/20/18) Morbid (severe) obesity due to excess calories (09/20/18) Essential (primary) hypertension (09/20/18) Heart failure, unspecified (09/20/18) Pneumonia, unspecified organism (09/20/18) Chronic obstructive pulmonary disease with (acute) exacerbation (09/20/18) Chronic obstructive pulmonary disease, unspecified (09/20/18) Pneumonitis due to inhalation of food and vomit (09/20/18) Acute and chronic respiratory failure, unspecified whether with hypoxia or hypercapnia (09/20/18) Occupational Therapy Treatment Note M2 OT-IP Current Condition Start: 09/21/18 17:51 Freq: Status: Active Protocol: Document 09/21/18 13:40 [facility] (Rec: 09/21/18 18:06 [facility] [id number]) Occupational Therapy Current Condition Current Condition Evaluation Date 09/21/18 Treatment Diagnosis Acute respiratory failure, COPD exacerbation Diagnosis Onset Date 09/20/18 Weight Bearing Status Weight Bearing Status Weight Bear as Tolerated M3 OT- IP Subjective and Pain Start: 09/21/18 17:51 Freq: Status: Active Protocol: Document 09/25/18 12:55 [facility] (Rec: 09/25/18 13:07 [facility] [id number]) OT- Subjective Occupational Therapy Visit Type Type Treatment Note Visit Start Time 11:45 Visit Stop Time 11:55 Total Visit Minutes 10 Occupational Therapy Visit Comments Patient Comments Pt not feeling well today and having a harder time breathing. Pt's daughter was suppose to come for training at noon, however pt forgot to relay the message and that daughter coming an hour earlier . OT Pain Assessment Pain When Pain Assessed At Rest Pain Present Pain Present Denied Pain M4 OT- IP ADL's Start: 09/21/18 17:51 Freq: Status: Active Protocol: Document 09/25/18 12:55 [facility] (Rec: 09/25/18 13:07 [facility] [email or web address]) OT [id number] Comments OT Self-Feeding Comments Pt states feels labored while eating, educated pt to sit upright , take her time, chew food well and alternate between solid and liquids. M5 OT- IP IADL's Start: 09/21/18 17:51 Freq: Status: Active Protocol: Document 09/21/18 13:40 [facility] (Rec: 09/21/18 18:06 [facility] [id number]) OT-Instrumental Activities of Daily Living Medication Management Medication Management Caregiver Administers Money Management Money Management Caregiver Provides Supervision Meal Preparation Meal Preparation Caregiver Provides Assist Personnel Scheduler Personnel Scheduler Caregiver Provides Assist M6 OT- IP Functional Cognition Start: 09/21/18 17:51 Freq: Status: Active Protocol: Document 09/24/18 11:58 [facility] (Rec: 09/24/18 12:09 [facility] [id number]) Cognitive Factors Limiting Selfcare Function Cognitive Ability Level of Alertness Alert Patient Orientation Name Age Birthday Month Date Year Day of Week Place Situation Attention Span Ability Capable of Focused Attention Capable of Sustained Attention Ability to Follow Commands Able to Follow Multi-Step Commands Memory Description No Deficits Noted Safety Awareness Underestimates Need for Assistance Cognitive Comments Cognitive Assessment Comments Pt doing much better now versus on OT eval and appears to have good safety awareness to take breaks, take her time and use the call light as needed. M7 OT- IP Mobility and Balance Start: 09/21/18 17:51 Freq: Status: Active Protocol: Document 09/24/18 11:58 [facility] (Rec: 09/24/18 12:09 [facility] [id number]) OT-Transfer Assessment Sit to and From Stand Sit to and from Stand Contact Guard Assistance Transfers Transfer Ability Standby Assistance Minimal Assistance Technique Transfer Destination Chair Shower Stall Toilet Transfer Technique Stand Step Pivot Devices Transfer Assistive Devices Gait Belt Front Wheeled Walker Comments Mobility Comments Pt movign better today and at times just SBA, VERO mainly to come to stand from higher surfaces. Pt on 2L and 91-94%. OT- Balance Assessment Sitting Balance and Reactions Static Sitting Balance Ability Normal Dynamic Sitting Balance Ability Normal Standing Balance and Reactions Static Standing Balance Ability Good M8 OT- IP Objective Assessments Start: 09/21/18 17:51 Freq: Status: Active Protocol: Document 09/21/18 13:40 [facility] (Rec: 09/21/18 18:06 [facility] [id number]) OT Gross Range of Motion Upper Extremity Range of Motion Assessment Bilaterally Impaired OT Strength Comments Strength Comments BUE 3-/5 to 3+/5 from proximal to distal. M9 OT- IP Assessment and Plan Start: 09/21/18 17:51 Freq: Status: Active Protocol: Document 09/25/18 12:55 [facility] (Rec: 09/25/18 13:07 [facility] [email or web address]) OT Summary Assessment and Plan Potential Rehabilitation Potential Good Analytic Complexity at Evaluation Low Summary OT Impairments Pain Range of Motion Strength Balance Functional Cognition Functional Mobility Dressing Toileting Bathing Toilet Transfers Progress Towards Goals Slow Progress due to Medical Issues Assessment Summary Per physician due to medical needs would be better to go to skilled rehab versus home. To continue to work with pt for OT needs. Goals Dressing Goal Minimal Assistance Toileting Goal Moderate Assistance Bathing Goal Moderate Assistance Toilet Transfer Goal Standby Assistance Patient/Caregiver Education Goal Demonstrate Energy Conservation and Pacing Caregiver Independent Assisting Patient Days to Meet Goals 2 Frequency of Treatment Frequency Of Treatment Once a Day Treatment Plan OT Treatment Plan ADL Training Functional Cognition Training Functional Mobility Patient/Family Education Discharge Planning Other Treatment Recommendations and Next Stand to sink from grooming Treatment Focus needs SBA, caregiver training. Discharge Recommendations OT Discharge Recommendations Home with Assistance Home Health SNF Rehab Other Discharge Recommendations Pending medical needs SNF versus home with assist and HH .
--- NOTE | 2018-09-25 13:46 | PM.PN.1 ---
Subjective Date Patient Seen: 09/25/18 Interval history: THE PATIENT IS A 57-YEAR-OLD FEMALE WITH CHRONIC RESPIRATORY FAILURE WHO WAS ADMITTED TO THE HOSPITAL FOR PROBABLE ASPIRATION PNEUMONIA. THE PATIENT HAS MADE SIGNIFICANT IMPROVEMENT. 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 DESPITE THIS SHE CONTINUES TO HAVE SIGNIFICANT RHONCHI. SHE HAS MADE IMPROVEMENT IN TERMS OF HER ABILITY TO MOVE WITH PT AND OT. SHE WOULD LIKE TO GO HOME. UNFORTUNATELY SHE IS MARKEDLY BRONCHOSPASTIC TODAY. SHE CONTINUES TO HAVE SIGNIFICANT RHONCHI. SHE CONTINUES TO REQUIRE OXYGEN PREVIOUSLY. THE PATIENT IS AGREEABLE TO STAY HERE IN THE HOSPITAL UNTIL SHE IS CLINICALLY STABILIZED TO RETURN HOME. Exam Vital Signs (past 8 hours): - 09/25/18 07:54 09/25/18 08:17 09/25/18 08:30 Temperature 98.5 F Pulse Rate 76 77 Respiratory Rate 14 22 Blood Pressure 156/83 H Pulse Oximetry 92 92 94 09/25/18 09:14 09/25/18 09:17 09/25/18 09:19 Temperature Pulse Rate 75 75 75 Respiratory Rate 18 Blood Pressure 122/59 L 122/59 L 122/59 L Pulse Oximetry 90 L 09/25/18 09:21 09/25/18 10:35 09/25/18 10:36 Temperature Pulse Rate 75 73 73 Respiratory Rate 18 Blood Pressure 122/59 L 138/68 138/68 Pulse Oximetry 90 L 09/25/18 11:14 09/25/18 12:00 Temperature 98.4 F Pulse Rate 77 73 Respiratory Rate 20 Blood Pressure 140/70 Pulse Oximetry 93 92 Fraction of Inspired Oxygen 28 Oxygen Delivery Method Nasal Cannula Oxygen Flow Rate 2 Narrative Exam Narrative: OBESE FEMALE SOMEWHAT ANXIOUS LUNGS: DIFFUSE RHONCHI BILATERALLY CARDIAC EXAM: REGULAR RATE AND RHYTHM NORMAL S1 AND S2 ABDOMEN: SOFT NONTENDER NONDISTENDED EXTREMITIES: NO EDEMA Objective Labs Result Diagrams: 09/23/18 05:10 09/24/18 04:53 Assessment & Plan (1) Acute and chronic respiratory failure: Problem details: The patient presents with progressive shortness of breath. She is chronically on 2.5 L of oxygen and read is requiring 3 L now. She has acute on chronic respiratory failure. This is present on admission. Patient will continue on oxygen, nebs, steroid, antibiotics. Will obtain sputum culture, respiratory screen, ins procalcitonin. CONTINUE NEBULIZER TREATMENT AND respiratory therapy. Current visit: Yes Status: Acute (2) COPD with exacerbation: Problem details: Patient has a chronic COPD. Unclear whether her current respiratory issues are due to a COPD exacerbation, worsening respiratory failure due to pneumonia or, heart failure. At this time will continue her nebulizer treatment and start her on oral prednisone. Current visit: Yes Status: Acute (3) Aspiration pneumonia: Problem details: Aspiration pneumonia versus healthcare associated pneumonia probable, present on admission. Patient does admit to difficulty eating. Will ask for speech therapy to evaluate her for possible aspiration. In the in antrum given her recent hospital stay she will be treated for Hcap with meropenem and vancomycin. Given her drug resistant organism will continue levofloxacin Current visit: Yes Status: Acute (4) Diabetes: Problem details: This is a relatively new diagnosis for her. She will be on her usual NPH and Aspart correctional scale. Will need to obtain correct dosing of her medication and start according Current visit: No Status: Acute (5) Morbidly obese: Current visit: No Status: Acute (6) Hypertension: Problem details: Continue carvedilol and losartan. Patient is currently amlodipine and will continue this as well. Current visit: No Status: Acute Assessment & Plan narrative: Home once pulmonary status is stabilized
--- NOTE | 2018-09-25 15:18 | CM.DPC ---
DCP/continued: Reviewed chart. Spoke with Dr. Mena in AM rounds re: d/c planning. Dr. Mena reports that patient's respiratory status has declined over the last 24hrs. Patient not medically stable for discharge today. Dr. Mena inquiring about the possibility of SNF? Notified Dr. Mena that yesterday 09-24-18 patient felt well enough to return home with HH. Also patient seen by both PT/OT yesterday and cleared to d/c home. Due to decline in status, LIQUID CHLORINE OPERATOR met with patient today re: d/c plan. Patient admits to feeling worse today and much weaker. Patient continues to prefer home with HH when medically stable but open to CM team faxing clinical to [facility] for review. Spoke with naty/Diana at [facility] and she will review. LILO/Radha to fax updated clinicals. P: Pending. Home with HH through [facility] vs. SNF ([facility]) reviewing. Per Diana they do have contract with [facility]/. PASRR has not been completed. LISSETT Del Toro
[2018-09-25] MEDS: FLUCONAZOLE 150 MG TABLET PO (18:04)
[2018-09-25] MEDS: SENNOSIDES 8.6 MG TABLET 17.2 MG PO (21:35)
[2018-09-26] VITALS (11 sets, daily range): BP systolic 117–156; BP diastolic 55–77; PULSE 63–77; RESP 16–24; TEMP 36.1–36.4; O2SAT 91–98
[2018-09-26] MEDS: HYDROCODONE/ACET 5/325 TABLET 1 TAB PO ×3 (03:19→15:59)
[2018-09-26] MEDS: ALBUTEROL/IPRATROPIUM 3 ML AMPUL INH ×3 (05:10→13:10)
[2018-09-26] MEDS: ENOXAPARIN 40 MG/0.4 ML SYRINGE SUBCUT (05:51)
[2018-09-26] MEDS: guaiFENesin ER 600 MG TAB 1200 MG PO (08:25)
[2018-09-26] MEDS: CIPROFLOXACIN 500 MG TABLET PO (08:25)
[2018-09-26] MEDS: CARVEDILOL 25 MG TABLET PO (08:25)
[2018-09-26] MEDS: DOCUSATE 100 MG CAPSULE PO (08:25)
[2018-09-26] MEDS: FUROSEMIDE 40 MG TABLET PO (08:25)
[2018-09-26] MEDS: LOSARTAN 50 MG TABLET 100 MG PO (08:26)
[2018-09-26] MEDS: POTASSIUM CHLORIDE 20 MEQ TAB PO (08:26)
[2018-09-26] MEDS: AMLODIPINE 5 MG TABLET 10 MG PO (08:26)
[2018-09-26] MEDS: HYDRALAZINE 25 MG TABLET PO ×2 (08:26→15:52)
[2018-09-26] MEDS: INSULIN GLARGINE 100 UNIT/ML 3ML PEN 15 UNIT SUBCUT (08:27)
[2018-09-26] MEDS: PSEUDOEPHEDRINE 30 MG TABLET 60 MG PO ×2 (08:28→15:51)
[2018-09-26] MEDS: levETIRAcetam 250 MG TABLET 500 MG PO (08:29)
[2018-09-26] MEDS: MUPIROCIN 22 GM OINT 1 APPLIC TOP (08:29)
[2018-09-26] MEDS: NYSTATIN POWDER 30 GM 1 APPLIC TOP (08:30)
[2018-09-26] MEDS: SODIUM CHLORIDE 0.9% FLUSH 10 ML IV (08:30)
--- NOTE | 2018-09-26 10:40 | PT.IPTN ---
Current Diagnoses Benign neoplasm of meninges, unspecified (09/20/18) Type 2 diabetes mellitus without complications (09/20/18) Morbid (severe) obesity due to excess calories (09/20/18) Essential (primary) hypertension (09/20/18) Heart failure, unspecified (09/20/18) Pneumonia, unspecified organism (09/20/18) Chronic obstructive pulmonary disease with (acute) exacerbation (09/20/18) Chronic obstructive pulmonary disease, unspecified (09/20/18) Pneumonitis due to inhalation of food and vomit (09/20/18) Acute and chronic respiratory failure, unspecified whether with hypoxia or hypercapnia (09/20/18) Physical Therapy Treatment Note M2 PT-IP Current Condition Start: 09/21/18 14:18 Freq: NEEDED Status: Active Protocol: Document 09/21/18 13:15 [facility] (Rec: 09/21/18 14:41 AB [id number]) Physical Therapy Current Condition Current Condition Evaluation Date 09/21/18 Treatment Diagnosis PNA; COPD; difficulty in walking Onset Date 09/20/18 Precautions Other Precautions O2 sat : O2 at 4L/min at this time M3 PT-IP Subjective Start: 09/21/18 14:18 Freq: NEEDED Status: Active Protocol: Document 09/26/18 10:40 [facility] (Rec: 09/26/18 11:24 [facility] [email or web address]) Subjective Physical Therapy Visit Type Type Treatment Note Visit Start Time 10:15 Visit Stop Time 10:40 Total Visit Minutes 25 Number of PATIENT FINANCIAL COORDINATOR Visits 3 Physical Therapy Visit Comments Patient Comments Pt states she needs to use the bathroom. M4 PT-IP Mobility and Gait Start: 09/21/18 14:18 Freq: NEEDED Status: Active Protocol: Document 09/26/18 10:40 [facility] (Rec: 09/26/18 11:24 [facility] [email or web address]) PT-Transfer Assessment Sit to and From Stand Sit to and from Stand Standby Assistance 1 Person Assistance Use of Upper Extremities Equipment Transfer Assistive Device Gait Belt Front Wheeled Walker Orthotic/Prosthetic Devices or Brace: No Transfers Transfer Destination Chair Toilet Transfer Ability Level of Assist Standby Assistance 1 Person Assistance Use of Upper Extremities Gait Assessment Gait Gait Assistance Required: Standby Assistance 1 Person Assist Distance (Feet) 30 Assistive Devices Assistive Device Gait Belt Front Wheeled Walker Gait Deviations General Gait Pattern Antalgic Decreased Stride Length Decreased Feet Clearance Flexed Trunk Wide Based Gait Factors Limiting Gait Function Factors Limiting Gait Function Decreased Activity Tolerance Decreased Strength Comments Gait Comments O2 at rest 95% with activity 85%, recoved to 92% after 30 sec. M5 PT-IP Objective Assessments Start: 09/21/18 14:18 Freq: NEEDED Status: Active Protocol: Document 09/21/18 13:15 AB (Rec: 09/21/18 14:41 AB [id number]) Orientation Orientation/Cognition Level of Alertness Alert Orientation Name Age Birthday Month Date Year Day of Week Place Situation Language Function Ability Hard of Hearing Safety Awareness Decreased Safety Awareness Gross Range of Motion Lower Extremity ROM Assessment Within Functional Limits Strength Lower Extremity Strength Assessment Bilaterally Impaired Comments Strength Comments LLE: 4-/5 RLE: 3+/5 M6 PT-IP Treatment Start: 09/21/18 14:18 Freq: NEEDED Status: Active Protocol: Document 09/24/18 10:45 [facility] (Rec: 09/24/18 15:00 [facility]B [id number]) Physical Therapy Treatment Exercises Exercises Ankle Pumps Seated Knee Flexion/Extension M7 PT-IP Assessment and Plan Start: 09/21/18 14:18 Freq: NEEDED Status: Active Protocol: Document 09/26/18 10:40 [facility] (Rec: 09/26/18 11:24 [facility] [email or web address]) PT Summary Assessment and Plan Summary Assessment Summary Pt improving with mobility. She was safe and stable with gait with FWW. Pt safe for D/C home when medically stable. Frequency of Treatment Frequency Of Treatment Once a Day Treatment Plan Other Recommendations and Next Treatment gait, step up/down 1 step with Focus walker, trial 4WW Recommendations To Nursing Amount of Assist Needed 1 Person Assist Discharge Recommendations PT Discharge Recommendations Home with 14/11 Assist Home Health
--- NOTE | 2018-09-26 11:29 | ST.IPDYTX ---
Care Team Visit Care Team Role Provider Type H Jesus Lin MD Primary Care Provider Physician Specialty: Medical Address: [address] [place] [address], [place], [address] Email: Ángela Worthington MD Emergency Provider Physician Specialty: Emergency Medicine Address: [address] [place] [address], [id number] Email: Jena Mena MD Admit Provider Physician Attending Provider Specialty: Internal Medicine Address: [address] [place] [address], [id number] Email: [email or web address] LAST MODEL DEPARTMENT SUPERVISOR Dysphagia Treatment LAST MODEL DEPARTMENT SUPERVISOR Dysphagia Treatment Start: 09/24/18 13:39 Freq: Status: Active Protocol: Document 09/26/18 11:18 LNK (Rec: 09/26/18 11:29 LNK [id number]) Dysphagia Treatment Session Time Visit Start Time 10:00 Visit Stop Time 10:20 Total Visit Minutes 20 Setting Assessment Location Acute Care Visit Type Note Type Treatment Note Patient Information Identification Type Name ID Wristband Subjective Observations Pt seated in bedside chair. O2 via nasal canula. Pt remarked that she is feeling better. Treatment Liquids Trialed [place] Administration Type Controlled Cup Sip Oral Strategies Upright at 90 degrees Controlled Bite/Sip Size Other Pharyngeal Strategies Sitting Upright (90 deg) Small Bites and Sips Alternate Liquids/Solids Additional Dysphagia Treatment Reminded pt to eat slowly as Strategies bolting her foods increases aspiration risk Treatment Activities Pt seen for dysphagia treatment. Education provided re: nectar thick liquid preparation and where to buy the thickening agent. Pt reported that she is drinking thickened liquids. Thin water at bedside, which pt said she did not drink. Discussed need for NTL with staff. Pt appears to safely tolerate the [place] thick liquids. No cough/choke observed following trial. It is difficult to rule out continued aspiration even with thickened liquids; however pt has a non-productive cough that may be related to her primary diagnoses or her swallow. Instrumental assessment would be needed in order to determine her aspiration risk. Pt education also provided re: silent aspiration, repetative pneumonia and her risk for aspiration without s/sx. Assessment Patient Response to Treatment Excellent Diet Recommendations Recommendations Continue Current Diet Liquids Order [place] Diet Order Dysphagia Advanced Medication Recommendations As Tolerated Whole in Carrier Aspiration Precautions Recommended Precautions Upright at 90 Degrees Frequent Rest Periods Small Bites/Sips Additional Precautions SMALL DIAMETER STRAW ONLY - NO LARGE STRAWS Treatment Plan Placement Recommendation after Discharge Home with Home Health Dysphagia Goals Pt will safely tolerate least- restrictive diet without overt s/sx aspiration to meet nutritional and hydration needs.
--- NOTE | 2018-09-26 15:10 | CM.DPNOTE ---
DC Note: Pt discussed in multidisciplinary rounds this morning, pt would like to go home and Dr Mena agreeable to DC pt home today w/ resumption of home health. Pt will require continuous O2, approx. 2 L. Met w/pt to review DCP. Pt eager to return home and suggests her dtr pick her up when she is available this evening. Dtr will bring pt's portable oxygen tank upon p/u. 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 Faxed resume orders, H+P, prog note from 6.4.19 and PT note, no DC Summary available at [id number]. P: DC home w/resumption of [facility] via family pov. Close outpt f/u scheduled. Beth Loza MSW
--- NOTE | 2018-09-26 18:07 | PC.NURSE ---
Shira shift note: Patient awake, alert, and pleasant. Discharged home via private vehicle with nephew. Remain on O2 at 2L via NC as per home use. Discussed importance of F/U with PMD, home care instructions, new medications, and respiratory care. Verbalized understanding of discharge instructions.
[2018-09-27 07:33] LABS: Anti-Streptolysin O Antibody < 50 IU/mL (< 200)
--- NOTE | 2018-09-27 13:02 | PM.DS.1 ---
History of Present Illness Chief complaint: Shortness of Breath Narrative: The patient is a 57-year-old female with a history of chronic respiratory failure on 2 L of oxygen, morbid obesity, type 2 diabetes on insulin, hypertension, COPD , history of meningioma who was hospitalized at [facility] for pneumonia about 1 week ago. Patient reports that following that hospitalization she felt the best she has ever felt. The evening of her discharge she started to feel sick. she reports increasing shortness of breath, cough with productive green phlegm, increased swelling of her lower extremities, and In generalized malaise. Patient felt she felt poorly. She called her PCP and was given a prescription for levofloxacin. 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 The patient had felt progressively worse with cough shortness of breath and back pain. Given her progressive symptoms swelling in her legs she presented to the emergency room for evaluation. In the emergency room a chest x-ray confirmed multifocal pneumonia. The patient was given 1 dose of Lasix with excellent response. Her BNP was less than 100. as the patient was recently hospitalized and treated for pneumonia and has a prior history of MRSA in her sputum she was admitted to the hospital and treated for healthcare associated pneumonia. Given her need for increased oxygenation she will be treated for respiratory failure and COPD as well. The patient denies any headache blurred vision chest pain or palpitations. She denies any hematemesis Melena or bright red blood per rectum. She does report back pain. She notes lower extremity edema. She has no dysuria hematuria or pyuria. Patient reports she has to eat slow because she will choke on her food. But she denies any recent aspiration. Discharge Providers Date of admission: 09/20/18 16:17 Discharge Date: 09/26/18 Primary care physician: Nato Lin MD Consults: 09/20/18 09:26 Consult to Respiratory Therapy Evaluate & Treat Comment: Physician Instructions: Evaluate and treat 09/20/18 16:32 Consult to Flakeboard Line Tender Routine Comment: 09/20/18 17:30 Consult to Speech Therapy Evaluate & Treat Comment: r/o aspiration Physician Instructions: Evaluate and treat 09/21/18 09:37 Consult to Occupational Therapy Evaluate & Treat Comment: Physician Instructions: Evaluate and treat Consult to Physical Therapy Evaluate & Treat Comment: Physician Instructions: Evaluate and Treat 09/25/18 08:36 Consult to Home Health Routine Comment: DX: SOB Reason For Exam: Resume Home Health services through [facility] 09/26/18 14:46 Consult to Home Health Routine Comment: Reason For Exam: Resume Home Health Services and add [facility] Discharge provider: Jena Mena MD Summary Discharge Diagnosis: 1. Acute on chronic renal failure, present on admission 2. COPD 3. Healthcare associated pneumonia 4. Type 2 diabetes 5. Morbid obesity 6. Acute diastolic heart failure, present on admission 7. Meningioma, chronic 8. Depression 9. Anemia 10. Metabolic alkalosis likely contraction alkalosis from diuresis Hospital Course: Patient is a 57-year-old female who was admitted to the hospital with acute respiratory failure and hypoxia. She had been hospitalized recently at [facility] and then in a [facility] and then home. She had significant hypoxemia, rhonchi on exam and respiratory difficulty. She was treated for healthcare associated pneumonia and aspiration pneumonia. She ultimately grew out achromobacter denitrifiacans. Her antibiotics were adjusted to S ciprofloxacin to which it was sensitive. The patient was observed to be choking on food intermittently. She passed a bedside swallow evaluation but was unable to get a modified barium swallow. She continued on aspiration precautions. Patient was diuresed for congestive heart failure. She continued to be treated with antibiotic steroids nebulizer treatments she was seen by Physical t arrangements were made for her to have . It she was felt to be physically ready to go home. She continued to have significant rhonchi and wheezing. She ultimately was able to have improvement of her respiratory status, physical status, and was deemed appropriate for discharge home. We considered the possibility of her going to a [facility] facility again however there was no facility that felt she had a skilled need. arrangements were made for her to have respiratory therapy and Occupational therapy at home. Patient was agreeable to the plan and discharged home accordingly. Status at Discharge Cognitive/behavioral status at discharge: oriented Functional status at discharge: independent ambulation Overall status at discharge: patient is back to baseline Time Spent with Patient Less than 30 minutes Exam Vital Signs (past 8 hours): Fraction of Inspired Oxygen 28 Oxygen Delivery Method Nasal Cannula Oxygen Flow Rate 2 Narrative Exam Narrative: Pleasant obese female in no acute distress Lungs: Decreased breath sounds with occasional scattered rhonchi Cardiac exam: Regular rate and rhythm normal S1-S2 Abdomen: Obese soft nontender Extremities: No edema Objective Labs Result Diagrams: 09/23/18 05:10 09/24/18 04:53 Labs: Laboratory Results - last 24 hr 09/23/18 00:00 Anti-Streptolysin O Ab < 50 Discharge Plan Discharge Plan Patient Disposition: Home Health Service Transfer to: [facility] Discharge comment: Pt. should follow up wither a sleep doctor upon discharge per Respiratory Therapy. Discharge Med Rec/Prescriptions Prescriptions: New sennosides [senna] 8.6 mg Tablet 17.2 mg PO BEDTIME 30 Days RF: 0 ipratropium-albuterol 0.5 mg-3 mg(2.5 mg base)/3 mL Solution For Nebulization 3 ml INH [id number] 30 Days RF: 0 ciprofloxacin HCl [Cipro] 500 mg Tablet 500 mg PO BID 10 Days Qty: 20 RF: 0 pseudoephedrine HCl 30 mg Tablet 60 mg PO 0900,1500 7 Days Qty: 28 RF: 0 Continued carvedilol 25 mg Tablet 25 mg PO BID RF: 0 levetiracetam 500 mg tablet 500 mg PO BID RF: 0 hydralazine 25 mg tablet 25 mg PO TID RF: 0 ascorbic acid (vitamin C) [Vitamin C With Shona Hips] 500 mg Tablet 500 mg PO DAILY RF: 0 amlodipine 10 mg tablet 10 mg PO DAILY RF: 0 mupirocin 2 % ointment 1 applic topical DIRECTED RF: 0 furosemide 20 mg tablet 20 mg PO DAILY RF: 0 nystatin 100,000 unit/gram powder 1 applic topical BIDX14 RF: 0 losartan 100 mg Tablet 100 mg PO DAILY RF: 0 potassium chloride 10 mEq tablet,ER particles/crystals 10 meq PO DAILY RF: 0 ferrous sulfate 325 mg (65 mg iron) Tablet 325 mg PO DAILY RF: 0 insulin lispro 100 unit/mL Cartridge 10 unit SUBCUT 3-4XD RF: 0 Discontinued furosemide 40 mg tablet 40 mg PO BIDX14 RF: 0 levofloxacin 500 mg tablet 500 mg PO DAILYX7 RF: 0 Follow up/Referrals: Nato Lni MD [Primary Care Provider] - Provider Discharge Instructions Diet: Low-sodium and Low-cholesterol Diet comment: [place] Thick Oxygen: 3 liters Skin/Wound/Dressing Care Report to your healthcare provider any signs of infection, such as:: chills, fever and night sweats Visit Report/Discharge Packet Instructions: DI for Respiratory Failure Discharge Data Primary Care Provider: Nato Lin Attending Provider: Jena Mena Admit Date/Time: 09/20/18 16:17 Discharges patient from system. Discharge Date/Time: 09/26/18 18:00
== END 2018-09-26 18:00 | disposition home health service (06) | DRG 133 ==
LOC: ED 10:47 → AC 16:17
PROVIDERS: Internal Medicine; Admitting Provider Internal Medicine; Emergency Provider Emergency Medicine; PCP Family Medicine; Visit Provider Internal Medicine
DX: J96.22 Acute and chronic respiratory failure with hypercapnia (principal); J44.1 Chronic obstructive pulmonary disease with (acute) exacerbation; J69.0 Pneumonitis due to inhalation of food and vomit; J96.21 Acute and chronic respiratory failure with hypoxia; J15.212 Pneumonia due to Methicillin resistant Staphylococcus aureus; I11.0 Hypertensive heart disease with heart failure; Z99.81 Dependence on supplemental oxygen; E66.01 Morbid (severe) obesity due to excess calories; Z68.42 Body mass index [BMI] 45.0-49.9, adult; J15.8 Pneumonia due to other specified bacteria; I50.33 Acute on chronic diastolic (congestive) heart failure; E11.9 Type 2 diabetes mellitus without complications; Z79.4 Long term (current) use of insulin; F32.9 Major depressive disorder, single episode, unspecified
CPT/HCPCS: 36415; 36591; 51701; 71045; 71046; 80048; 80053; 80202; 81003; 82962; 83036; 83605; 83735; 83880; 84145; 85025; 86060; 87070; 87077; 87186; 87205; 87449; 87633; 92526; 92610; 93005; 94150; 94640; 94667; 94668; 94760; 94762; 96374; 96375; 96376; 97116; 97162; 97165; 97530; 97535; 99284; 99285; J1170; J1650; J1940; J2185; J2270; J3480; J7613

== ENCOUNTER 2018-10-10 12:09 | Emergency (ER) | payer OTHER, MEDICAID, SELFPAY ==
[2018-09-20 16:23] VITALS: BMI 47.5
--- NOTE | 2018-10-10 12:12 | DI.RAD.S_ITS ---
PROCEDURE: XR CHEST 1V INDICATIONS: difficulty breathing TECHNIQUE: One view of the chest was acquired. COMPARISON: [facility], CT, CT KUB, 08/13/2018, 17:00. [facility], CR, XR CHEST 1 VIEW, 09/07/2018, 13:56. [facility], CR, XR CHEST 1 VIEW, 09/13/2018, 19:54. [facility], CR, XR CHEST 2V, 09/20/2018, 9:48. [facility], CR, XR CHEST 1V, 09/23/2018, 7:56. FINDINGS: Surgical changes and devices: None. Lungs and pleura: There are small pleural effusions bilaterally. Bibasilar opacities may be infiltrates or atelectasis. No pneumothorax. Mediastinum: Mediastinal contours appear normal. Heart size is normal. Bones and chest wall: No suspicious bony lesions. Overlying soft tissues appear unremarkable. IMPRESSION: Small bilateral perfusions with bibasilar pneumonia or atelectasis Dictated by: Glory Knox M.D. on 10/10/2018 at 12:54 Approved by: Glory Knox M.D. on 10/10/2018 at 12:57
[2018-10-10 12:13] VITALS: BP 121/37; PULSE 77; RESP 19; TEMP 36.5; O2SAT 98; BMI 45.7
[2018-10-10 12:42] LABS: Add Manual Diff / Slide Review NO; Basophils Absolute Auto 0 /uL (0-100); Basophils Percent Auto 0.6 % (0-2); Eosinophils Absolute Auto 300 /uL (0-450); Eosinophils Percent Auto 4.9 % (2-4); Hematocrit 28.2 % (36-46); Hemoglobin 8.6 g/dL (12.0-16.0); Lymphocytes Absolute Auto 800 /uL (1100-4500); Lymphocytes Percent Auto 11.6 % (25-40); Mean Corpuscular HGB Conc 30.7 % (30-36); Mean Corpuscular Hemoglobin 24.9 PG (26-34); Mean Corpuscular Volume 81.2 fL (80-100); Monocytes Absolute Auto 400 /uL (0-900); Monocytes Percent Auto 6.4 % (3-14); Neutrophils Absolute Auto 5100 /uL (1500-7000); Neutrophils Percent Auto 76.5 % (50-75); Platelet Count 315 X10^3/uL (150-400); Red Blood Cell Count 3.47 X10^6/uL (4.0-5.2); Red Cell Distribution Width 17.1 % (11.6-14.8); White Blood Cell Count 6.7 X10^3/uL (4.5-11.0)
[2018-10-10 12:45] VITALS: BP 149/58; PULSE 74; RESP 17; O2SAT 98
[2018-10-10 12:55] LABS: BUN Creatinine Ratio 26.4 (6-22); Blood Urea Nitrogen 37 mg/dL (7-17); Calcium 9.6 mg/dL (8.4-10.2); Carbon Dioxide 31 mmol/L (22-32); Chloride 101 mmol/L (98-107); Estimated Glomerular Filt Rate 38.9 mL/min (>60); Glucose 143 mg/dL (70-100); HEMOLYSIS < 15 (0-50); Potassium 3.9 mmol/L (3.4-5.1); Sodium 142 mmol/L (137-145)
[2018-10-10 13:00] VITALS: BP 134/60; PULSE 70; RESP 20; O2SAT 100
[2018-10-10 13:00] LABS: B Type Natriuretic Peptide 148 (<100)
[2018-10-10 13:02] LABS: pH ABG 7.38 (7.35-7.45)
[2018-10-10 13:03] LABS: Fractionated Inspired Oxygen 21; HCO3 ABG 27 mmol/L (22-26); Oxygen Saturation ABG 97 % (95-100); PCO2 ABG 46.5 mmHg (35-45); PO2 ABG 95 mmHg (80-100); TCO2 ABG 29 mmol/L (21-31)
[2018-10-10 13:04] LABS: Troponin I < 0.012 ng/mL (0.01-0.034)
[2018-10-10 13:14] LABS: Lactate (Lactic Acid) 0.8 mmol/L (0.7-2.1)
[2018-10-10 13:14] LABS: Procalcitonin < 0.05 ng/mL (<0.5)
--- NOTE | 2018-10-10 13:25 | ED.SOB ---
HPI - SOB/Dyspnea General Chief Complaint: Shortness of Breath/Dyspnea Stated Complaint: Shortness of breath Time Seen by Provider: 10/10/18 12:10 Source: patient, family and EMS Mode of arrival: EMS Limitations: no limitations History of Present Illness 57-year-old female nonsmoker with history of morbid obesity, COPD on home oxygen, diabetes and hypertension presents by EMS for evaluation of increased cough and difficulty breathing over the past few days. She has had the bump her home oxygen from 2 L up to 2.5 L to feel comfortable. Patient denies any fever chills nor nausea or vomiting. She becomes more short of breath with any movement or exertion. She was recently seen and evaluated for exacerbation of COPD and pneumonia MD Complaint: shortness of breath and cough Onset (ago): day(s) Context: recent illness Severity: moderate Consistency/Duration: constant Relieving factors: oxygen and rest Exacerbating factors: exertion Known history of: COPD and diabetes Associated symptoms: cough and wheezing Treatment prior to arrival: oxygen Related Data Home oxygen amount: 2 liters Home Medications Medication Instructions Recorded Confirmed amlodipine 10 mg PO DAILY 09/20/18 10/10/18 ascorbic acid (vitamin C) [Vitamin 500 mg PO DAILY 09/20/18 10/10/18 C With Shona Hips] carvedilol 25 mg PO BID 09/20/18 10/10/18 ferrous sulfate 325 mg PO DAILY 09/20/18 10/10/18 hydralazine 25 mg PO TID 09/20/18 10/10/18 levetiracetam 500 mg PO BID 09/20/18 10/10/18 losartan 100 mg PO DAILY 09/20/18 10/10/18 mupirocin 1 applic TOPICAL DIRECTED 09/20/18 10/10/18 nystatin 1 applic TOPICAL BIDX14 09/20/18 10/10/18 potassium chloride 10 meq PO DAILY 09/20/18 10/10/18 furosemide 40 mg PO DAILY 10/10/18 10/10/18 insulin lispro [Humalog U-100 10 units SUBCUT 3-4XD 10/10/18 10/10/18 Insulin] pseudoephedrine HCl [Nasal 30 mg PO QID 10/10/18 10/10/18 Decongestant (pseudoeph)] Previous Rx's Medication Instructions Recorded ipratropium-albuterol 3 ml INH [id number] 30 Days ml 09/26/18 sennosides [senna] 17.2 mg PO BEDTIME 30 Days tab 09/26/18 doxycycline hyclate 100 mg PO BID #20 tab 10/10/18 Allergies Allergy/AdvReac Type Severity Reaction Status Date / Time naproxen Allergy Mild MADE MY Verified 05/26/18 10:43 FACE NUMB meperidine Allergy Unknown Verified 05/26/18 10:43 Penicillins Allergy Unknown Verified 05/26/18 10:43 Sulfa (Sulfonamide Allergy Unknown Verified 05/26/18 10:43 Antibiotics) diphenhydramine AdvReac Shakiness Verified 05/26/18 10:43 [From Ya] Review of Systems Constitutional Denies chills, Denies fever(s), Denies lethargy and Denies weakness Eyes Denies change in vision, Denies eye discharge, Denies irritation and Denies loss of vision ENT Ears, Nose, Mouth, and Throat: Denies change in voice, Denies neck pain and Denies sore throat Cardiovascular Denies chest pain, Denies irregular heart rhythm, Denies lightheadedness, Denies palpitations, Reports dyspnea, Reports dyspnea on exertion and Denies orthopnea Respiratory Reports cough, Reports dyspnea, Reports dyspnea on exertion and Reports wheezing Gastrointestinal Gastrointestinal: Denies abdominal pain, Denies change in bowel habits, Denies diarrhea, Denies nausea and Denies vomiting Genitourinary Denies hematuria, Denies flank pain, Denies urinary incontinence and Denies urinary urgency Musculoskeletal Denies neck pain Integumentary/Breasts Denies pruritus, Denies erythema, Denies rash and Denies wounds Neurologic Denies confusion, Denies loss of vision and Denies weakness Psychiatric Denies anxiety, Denies confusion, Denies depression, Denies homicidal ideation and Denies suicidal ideation Endocrine Denies palpitations Hematologic/Lymphatic Denies easy bruising Allergic/Immunologic Reports wheezing [facility] Medical History History of congestive heart failure (Acute) Chronic respiratory failure (Acute) Hypoxia (Acute) Meningioma (Acute) Diabetes (Acute) Morbidly obese (Acute) COPD (chronic obstructive pulmonary disease) (Acute) Hypertension (Acute) Surgical History Status post cholecystectomy (Acute) Status post appendectomy (Acute) Family History (Updated 09/20/18 @ 17:18 by Jena Mena MD) Daughter No problems noted. Son No problems noted. Mother Diabetes mellitus Congestive heart failure Father Diabetes mellitus Social History household members: significant other, family and children Smoking Status: Never smoker Family History Daughter No problems noted. Son No problems noted. Mother Diabetes mellitus Congestive heart failure Father Diabetes mellitus Social History household members: significant other, family and children Smoking Status: Never smoker Exam Narrative Exam Narrative: GENERAL: 57-year-old female appears older than stated age, chronically ill and in mild distress, no significant work of breathing or use of accessory muscles HEAD: Atraumatic. Normocephalic. No temporal or scalp tenderness. EYES: Pupils equal round and reactive. Extraocular motions intact. No scleral icterus. No injection or drainage. ENT: Nose without bleeding, purulent drainage or septal hematoma. Throat without erythema, tonsillar hypertrophy or exudate. Uvula midline. Airway patent. NECK: Trachea midline. No JVD or lymphadenopathy. Supple, nontender, no meningeal signs. CARDIOVASCULAR: Regular rate and rhythm without murmurs, gallops, or rubs. RESPIRATORY: Decreased breath sounds bilaterally with prolonged expiratory phase and mild expiratory wheeze GASTROINTESTINAL: Abdomen soft, non-tender, nondistended. No hepato-splenomegaly, or palpable masses. No guarding. EXTREMITIES: No clubbing, cyanosis, or edema. No joint tenderness, effusion, or edema noted. BACK: Nontender without deformity or crepitance. No flank tenderness. NEURO: AOx3. SKIN: No rash or erythema. Initial Vital Signs Initial Vital Signs: Vital Signs Temperature 97.7 F 10/10/18 12:13 Pulse Rate 77 10/10/18 12:13 Respiratory Rate 10/10/18 12:13 Blood Pressure 121/37 L 10/10/18 12:13 Pulse Oximetry 98 10/10/18 12:13 Course Orders Ordered: ED Orders 10/10/18 12:12 XR chest 1V Stat Lactate (Lactic Acid) Stat 10/10/18 12:25 B Type Natriuretic Peptide Stat Basic Metabolic Panel Stat Complete Blood Count AUTO DIFF Stat Procalcitonin Stat Troponin I Stat 10/10/18 12:46 Arterial Blood Gas Stat 10/10/18 12:52 Blood Culture Stat Discontinued Medications Doxycycline Hyclate (Vibramycin) 100 mg PO NOW ONE Stop: 10/10/18 13:58 Last Admin: 10/10/18 14:28 Dose: 100 mg Ibuprofen (Advil) 800 mg PO NOW ONE Stop: 10/10/18 14:38 Last Admin: 10/10/18 14:38 Dose: 800 mg Reevaluation(s) Reevaluation #1: Patient notably improved over course of visit Vital Signs - 8 hr 10/10/18 12:13 10/10/18 12:45 10/10/18 13:00 Temperature 97.7 F Pulse Rate 77 74 70 Respiratory Rate 19 17 20 Blood Pressure 121/37 L Blood Pressure [Left Arm] 149/58 H 134/60 Pulse Oximetry 98 98 100 10/10/18 13:30 10/10/18 14:00 Temperature Pulse Rate 71 76 Respiratory Rate 18 20 Blood Pressure Blood Pressure [Left Arm] 154/65 H 132/58 L Pulse Oximetry 98 98 MDM - SOB/Dyspnea Medical Records Attestation: I reviewed the patient's medical records. Lab Data Attestation: I reviewed the patient's lab results. Result diagrams: 10/10/18 12:25 10/10/18 12:25 Lab Results 10/10/18 10/10/18 10/10/18 Range/Units 12:12 12:25 12:25 WBC 6.7 (4.5-11.0) X10^3/uL RBC 3.47 L (4.0-5.2) X10^6/uL Hgb 8.6 L (12.0-16.0) g/dL Hct 28.2 L (36-46) % MCV 81.2 (80-100) fL MCH 24.9 L (26-34) PG MCHC 30.7 (30-36) % RDW 17.1 H (11.6-14.8) % Plt Count 315 (150-400) X10^3/uL Neut % (Auto) 76.5 H (50-75) % Lymph % (Auto) 11.6 L (25-40) % [place] % (Auto) 6.4 (3-14) % Eos % (Auto) 4.9 H (2-4) % Baso % (Auto) 0.6 (0-2) % Neut # (Auto) 5100 (9747-1326) /uL Lymph # (Auto) 800 L (3832-7186) /uL [place] # (Auto) 400 (0-900) /uL Eos # (Auto) 300 (0-450) /uL Baso # (Auto) 0 (0-100) /uL ABG pH (7.35-7.45) ABG pCO2 (35-45) mmHg ABG pO2 (80-100) mmHg ABG HCO3 (22-26) mmol/L ABG Total CO2 (21-31) mmol/L ABG O2 Saturation (95-100) % ABG Base Excess (-2-2) mmol/L FiO2 Sodium (137-145) mmol/L Potassium (3.4-5.1) mmol/L Chloride (98-107) mmol/L Carbon Dioxide (22-32) mmol/L BUN (7-17) mg/dL Creatinine (0.52-1.04) mg/dL Estimated GFR (>60) mL/min BUN/Creatinine Ratio (6-22) Glucose (70-100) mg/dL Lactate 0.8 (0.7-2.1) mmol/L Calcium (8.4-10.2) mg/dL Troponin I (0.01-0.034) ng/mL B-Natriuretic Peptide 148 H (<100) Procalcitonin (<0.5) ng/mL 10/10/18 10/10/18 10/10/18 Range/Units 12:25 12:25 12:46 WBC (4.5-11.0) X10^3/uL RBC (4.0-5.2) X10^6/uL Hgb (12.0-16.0) g/dL Hct (36-46) % MCV (80-100) fL MCH (26-34) PG MCHC (30-36) % RDW (11.6-14.8) % Plt Count (150-400) X10^3/uL Neut % (Auto) (50-75) % Lymph % (Auto) (25-40) % [place] % (Auto) (3-14) % Eos % (Auto) (2-4) % Baso % (Auto) (0-2) % Neut # (Auto) (4791-3496) /uL Lymph # (Auto) (0831-1297) /uL [place] # (Auto) (0-900) /uL Eos # (Auto) (0-450) /uL Baso # (Auto) (0-100) /uL ABG pH 7.38 (7.35-7.45) ABG pCO2 46.5 H (35-45) mmHg ABG pO2 95 (80-100) mmHg ABG HCO3 27 H (22-26) mmol/L ABG Total CO2 29 (21-31) mmol/L ABG O2 Saturation 97 (95-100) % ABG Base Excess 2.0 (-2-2) mmol/L FiO2 21 Sodium 142 (137-145) mmol/L Potassium 3.9 (3.4-5.1) mmol/L Chloride 101 (98-107) mmol/L Carbon Dioxide 31 (22-32) mmol/L BUN 37 H (7-17) mg/dL Creatinine 1.40 H (0.52-1.04) mg/dL Estimated GFR 38.9 L (>60) mL/min BUN/Creatinine Ratio 26.4 H (6-22) Glucose 143 H (70-100) mg/dL Lactate (0.7-2.1) mmol/L Calcium 9.6 (8.4-10.2) mg/dL Troponin I < 0.012 (0.01-0.034) ng/mL B-Natriuretic Peptide (<100) Procalcitonin < 0.05 (<0.5) ng/mL ABG Data Attestation: I personally reviewed and interpreted this ABG as follows: Interpretation: Patient has a very reassuring ABG without significant abnormalities Imaging Data Chest x-ray: Radiologist's impression: [address] [id number] XRay Report Signed Patient: Rocío Enriquez KMR#: [id number] : 2Acct:[id number] Age/Sex: 57 / FDate of Service: 09/23/18 Loc: GL868-7 Accession Number: [id number] Procedure: XR chest 1V Ordering Provider: Jenny Walker D.O. PROCEDURE: XR CHEST 1V INDICATIONS: previous HCAP vs aspiration PNA, pulmonary edema TECHNIQUE: One view of the chest was acquired. COMPARISON: [facility], , XR CHEST 2V, 09/20/2018, 9:48. FINDINGS: Surgical changes and devices: None. Lungs and pleura: Mild improvement in the aeration of the left lung is evident. Previously seen area of consolidation within the left upper lobe has largely resolved. However, the left diaphragm is obscured by a mild pulmonary consolidation. Interstitial prominence within the bilateral perihilar regions are present. There is no large effusion or pneumothorax. Mediastinum: Mediastinal contours appear normal. Heart size is enlarged. Bones and chest wall: No suspicious bony lesions. Overlying soft tissues appear unremarkable. IMPRESSION: 1. Cardiomegaly with associated vascular congestion is more pronounced on the current study, suggesting developing pulmonary edema. 2. Interval resolution of previously seen left upper lobe consolidation. There may be mild residual left basilar atelectasis. Dictated by: Santino Anton M.D. on 09/23/2018 at 7:43 Approved by: Santino Anton M.D. on 09/23/2018 at 7:45 MDM Narrative Medical decision making narrative: Multiple etiologies for patient's symptoms considered including: [Exacerbation of COPD versus pneumonia versus pulmonary embolism versus other] Patient's symptoms improved or duration of stay with above-stated therapies. Findings and discharge diagnosis discussed with patient/family followed by verbalization of understanding Return precautions discussed with patient/family whom verbalize understanding. Discharge Plan Departure Patient Disposition: Home Clinical Impression: Pneumonia Qualifiers: Pneumonia type: due to unspecified organism Laterality: unspecified laterality Lung location: lower lobe of lung Qualified Code(s): J18.1 - Lobar pneumonia, unspecified organism Discharge Date/Time: 10/10/18 15:16 Interventions: ED Discharge Assessment Last Done: 10/10/18 14:35 Instructions: DI for Pneumonia -- Adult Activity Restrictions/Additional Instructions: *You have been diagnosed with [pneumonia] *What to do: *Take medications as directed: Your antibiotic has been electronically transmitted to the [facility] in [place] at your request *Follow up with your primary care provider in 2-3 days, call for an appointment. Let them know you were seen in the Emergency Department and that we ask that you be seen in follow up *Return to ER if you should have any new, worsening or concerning symptoms Prescriptions: New doxycycline hyclate 100 mg tablet 100 mg PO BID Qty: 20 RF: 0 No Action carvedilol 25 mg Tablet 25 mg PO BID RF: 0 levetiracetam 500 mg tablet 500 mg PO BID RF: 0 hydralazine 25 mg tablet 25 mg PO TID RF: 0 ascorbic acid (vitamin C) [Vitamin C With Shona Hips] 500 mg Tablet 500 mg PO DAILY RF: 0 amlodipine 10 mg tablet 10 mg PO DAILY RF: 0 mupirocin 2 % ointment 1 applic topical DIRECTED RF: 0 nystatin 100,000 unit/gram powder 1 applic topical [id number] RF: 0 losartan 100 mg Tablet 100 mg PO DAILY RF: 0 potassium chloride 10 mEq tablet,ER particles/crystals 10 meq PO DAILY RF: 0 ferrous sulfate 325 mg (65 mg iron) Tablet 325 mg PO DAILY RF: 0 sennosides [senna] 8.6 mg Tablet 17.2 mg PO BEDTIME 30 Days RF: 0 ipratropium-albuterol 0.5 mg-3 mg(2.5 mg base)/3 mL Solution For Nebulization 3 ml INH [id number] 30 Days RF: 0 furosemide 40 mg tablet 40 mg PO DAILY RF: 0 pseudoephedrine HCl [Nasal Decongestant (pseudoeph)] 30 mg tablet 30 mg PO QID RF: 0 insulin lispro [Humalog U-100 Insulin] 100 unit/mL solution 10 units subcut 3-4XD RF: 0 Referrals: Nato Lin MD [Primary Care Provider] -
[2018-10-10 13:30] VITALS: BP 154/65; PULSE 71; RESP 18; O2SAT 98
[2018-10-10 14:00] VITALS: BP 132/58; PULSE 76; RESP 20; O2SAT 98
[2018-10-10] MEDS: DOXYCYCLINE HYCLATE 100 MG TABLET PO (14:28)
[2018-10-10] MEDS: IBUPROFEN 400 MG TABLET 800 MG PO (14:38)
--- NOTE | 2018-10-10 15:16 | PC.NURSE ---
pt needs assist to get into [place] , [facility] states, usually she gets into a car, but not available. pt too weak to get into high vehicle. 911 called for assist. assisted unto car, tolerated well, skin pink,dry, remain with oxygen.
--- NOTE | 2018-10-10 17:54 | ED_ITS ---
HPI - SOB/Dyspnea General Chief Complaint: Shortness of Breath/Dyspnea Stated Complaint: Shortness of breath Time Seen by Provider: 10/10/18 12:10 Source: patient, family and EMS Mode of arrival: EMS Limitations: no limitations History of Present Illness 57-year-old female nonsmoker with history of morbid obesity, COPD on home oxygen, diabetes and hypertension presents by EMS for evaluation of increased cough and difficulty breathing over the past few days. She has had the bump her home oxygen from 2 L up to 2.5 L to feel comfortable. Patient denies any fever chills nor nausea or vomiting. She becomes more short of breath with any movement or exertion. She was recently seen and evaluated for exacerbation of COPD and pneumonia MD Complaint: shortness of breath and cough Onset (ago): day(s) Context: recent illness Severity: moderate Consistency/Duration: constant Relieving factors: oxygen and rest Exacerbating factors: exertion Known history of: COPD and diabetes Associated symptoms: cough and wheezing Treatment prior to arrival: oxygen Related Data Home oxygen amount: 2 liters Home Medications Medication Instructions Recorded Confirmed amlodipine 10 mg PO DAILY 09/20/18 10/10/18 ascorbic acid (vitamin C) [Vitamin 500 mg PO DAILY 09/20/18 10/10/18 C With Shona Hips] carvedilol 25 mg PO BID 09/20/18 10/10/18 ferrous sulfate 325 mg PO DAILY 09/20/18 10/10/18 hydralazine 25 mg PO TID 09/20/18 10/10/18 levetiracetam 500 mg PO BID 09/20/18 10/10/18 losartan 100 mg PO DAILY 09/20/18 10/10/18 mupirocin 1 applic TOPICAL DIRECTED 09/20/18 10/10/18 nystatin 1 applic TOPICAL [id number] 09/20/18 10/10/18 potassium chloride 10 meq PO DAILY 09/20/18 10/10/18 furosemide 40 mg PO DAILY 10/10/18 10/10/18 insulin lispro [Humalog U-100 10 units SUBCUT 3-4XD 10/10/18 10/10/18 Insulin] pseudoephedrine HCl [Nasal 30 mg PO QID 10/10/18 10/10/18 Decongestant (pseudoeph)] Previous Rx's Medication Instructions Recorded ipratropium-albuterol 3 ml INH [id number] 30 Days ml 09/26/18 sennosides [senna] 17.2 mg PO BEDTIME 30 Days tab 09/26/18 doxycycline hyclate 100 mg PO BID #20 tab 10/10/18 Allergies Allergy/AdvReac Type Severity Reaction Status Date / Time naproxen Allergy Mild MADE MY Verified 05/26/18 10:43 FACE NUMB meperidine Allergy Unknown Verified 05/26/18 10:43 Penicillins Allergy Unknown Verified 05/26/18 10:43 Sulfa (Sulfonamide Allergy Unknown Verified 05/26/18 10:43 Antibiotics) diphenhydramine AdvReac Shakiness Verified 05/26/18 10:43 [From aY] Review of Systems Constitutional Denies chills, Denies fever(s), Denies lethargy and Denies weakness Eyes Denies change in vision, Denies eye discharge, Denies irritation and Denies loss of vision ENT Ears, Nose, Mouth, and Throat: Denies change in voice, Denies neck pain and Denies sore throat Cardiovascular Denies chest pain, Denies irregular heart rhythm, Denies lightheadedness, Denies palpitations, Reports dyspnea, Reports dyspnea on exertion and Denies orthopnea Respiratory Reports cough, Reports dyspnea, Reports dyspnea on exertion and Reports wheezing Gastrointestinal Gastrointestinal: Denies abdominal pain, Denies change in bowel habits, Denies diarrhea, Denies nausea and Denies vomiting Genitourinary Denies hematuria, Denies flank pain, Denies urinary incontinence and Denies urinary urgency Musculoskeletal Denies neck pain Integumentary/Breasts Denies pruritus, Denies erythema, Denies rash and Denies wounds Neurologic Denies confusion, Denies loss of vision and Denies weakness Psychiatric Denies anxiety, Denies confusion, Denies depression, Denies homicidal ideation and Denies suicidal ideation Endocrine Denies palpitations Hematologic/Lymphatic Denies easy bruising Allergic/Immunologic Reports wheezing [facility] Medical History History of congestive heart failure (Acute) Chronic respiratory failure (Acute) Hypoxia (Acute) Meningioma (Acute) Diabetes (Acute) Morbidly obese (Acute) COPD (chronic obstructive pulmonary disease) (Acute) Hypertension (Acute) Surgical History Status post cholecystectomy (Acute) Status post appendectomy (Acute) Family History (Updated 09/20/18 @ 17:18 by Jena Mena MD) Daughter No problems noted. Son No problems noted. Mother Diabetes mellitus Congestive heart failure Father Diabetes mellitus Social History household members: significant other, family and children Smoking Status: Never smoker Family History Daughter No problems noted. Son No problems noted. Mother Diabetes mellitus Congestive heart failure Father Diabetes mellitus Social History household members: significant other, family and children Smoking Status: Never smoker Exam Narrative Exam Narrative: GENERAL: 57-year-old female appears older than stated age, chronically ill and in mild distress, no significant work of breathing or use of accessory muscles HEAD: Atraumatic. Normocephalic. No temporal or scalp tenderness. EYES: Pupils equal round and reactive. Extraocular motions intact. No scleral icterus. No injection or drainage. ENT: Nose without bleeding, purulent drainage or septal hematoma. Throat without erythema, tonsillar hypertrophy or exudate. Uvula midline. Airway patent. NECK: Trachea midline. No JVD or lymphadenopathy. Supple, nontender, no meningeal signs. CARDIOVASCULAR: Regular rate and rhythm without murmurs, gallops, or rubs. RESPIRATORY: Decreased breath sounds bilaterally with prolonged expiratory phase and mild expiratory wheeze GASTROINTESTINAL: Abdomen soft, non-tender, nondistended. No hepato- splenomegaly, or palpable masses. No guarding. EXTREMITIES: No clubbing, cyanosis, or edema. No joint tenderness, effusion, or edema noted. BACK: Nontender without deformity or crepitance. No flank tenderness. NEURO: AOx3. SKIN: No rash or erythema. Initial Vital Signs Initial Vital Signs: Vital Signs Temperature 97.7 F 10/10/18 12:13 Pulse Rate 77 10/10/18 12:13 Respiratory Rate 10/10/18 12:13 Blood Pressure 121/37 L 10/10/18 12:13 Pulse Oximetry 98 10/10/18 12:13 Course Orders Ordered: ED Orders 10/10/18 12:12 XR chest 1V Stat Lactate (Lactic Acid) Stat 10/10/18 12:25 B Type Natriuretic Peptide Stat Basic Metabolic Panel Stat Complete Blood Count AUTO DIFF Stat Procalcitonin Stat Troponin I Stat 10/10/18 12:46 Arterial Blood Gas Stat 10/10/18 12:52 Blood Culture Stat Discontinued Medications Doxycycline Hyclate (Vibramycin) 100 mg PO NOW ONE Stop: 10/10/18 13:58 Last Admin: 10/10/18 14:28 Dose: 100 mg Ibuprofen (Advil) 800 mg PO NOW ONE Stop: 10/10/18 14:38 Last Admin: 10/10/18 14:38 Dose: 800 mg Reevaluation(s) Reevaluation #1: Patient notably improved over course of visit Vital Signs - 8 hr 10/10/18 12:13 10/10/18 12:45 10/10/18 13:00 Temperature 97.7 F Pulse Rate 77 74 70 Respiratory Rate 19 17 20 Blood Pressure 121/37 L Blood Pressure [Left Arm] 149/58 H 134/60 Pulse Oximetry 98 98 100 10/10/18 13:30 10/10/18 14:00 Temperature Pulse Rate 71 76 Respiratory Rate 18 20 Blood Pressure Blood Pressure [Left Arm] 154/65 H 132/58 L Pulse Oximetry 98 98 MDM - SOB/Dyspnea Medical Records Attestation: I reviewed the patient's medical records. Lab Data Attestation: I reviewed the patient's lab results. Result diagrams: 10/10/18 12:25 10/10/18 12:25 Lab Results 10/10/18 10/10/18 10/10/18 Range/Units 12:12 12:25 12:25 WBC 6.7 (4.5-11.0) X10^3/uL RBC 3.47 L (4.0-5.2) X10^6/uL Hgb 8.6 L (12.0-16.0) g/dL Hct 28.2 L (36-46) % MCV 81.2 (80-100) fL MCH 24.9 L (26-34) PG MCHC 30.7 (30-36) % RDW 17.1 H (11.6-14.8) % Plt Count 315 (150-400) X10^3/uL Neut % (Auto) 76.5 H (50-75) % Lymph % (Auto) 11.6 L (25-40) % Barber % (Auto) 6.4 (3-14) % Eos % (Auto) 4.9 H (2-4) % Baso % (Auto) 0.6 (0-2) % Neut # (Auto) 5100 (6823-5643) /uL Lymph # (Auto) 800 L (7434-7983) /uL Barber # (Auto) 400 (0-900) /uL Eos # (Auto) 300 (0-450) /uL Baso # (Auto) 0 (0-100) /uL ABG pH (7.35-7.45) ABG pCO2 (35-45) mmHg ABG pO2 (80-100) mmHg ABG HCO3 (22-26) mmol/L ABG Total CO2 (21-31) mmol/L ABG O2 Saturation (95-100) % ABG Base Excess (-2-2) mmol/L FiO2 Sodium (137-145) mmol/L Potassium (3.4-5.1) mmol/L Chloride (98-107) mmol/L Carbon Dioxide (22-32) mmol/L BUN (7-17) mg/dL Creatinine (0.52-1.04) mg/dL Estimated GFR (>60) mL/min BUN/Creatinine Ratio (6-22) Glucose (70-100) mg/dL Lactate 0.8 (0.7-2.1) mmol/L Calcium (8.4-10.2) mg/dL Troponin I (0.01-0.034) ng/mL B-Natriuretic Peptide 148 H (<100) Procalcitonin (<0.5) ng/mL 10/10/18 10/10/18 10/10/18 Range/Units 12:25 12:25 12:46 WBC (4.5-11.0) X10^3/uL RBC (4.0-5.2) X10^6/uL Hgb (12.0-16.0) g/dL Hct (36-46) % MCV (80-100) fL MCH (26-34) PG MCHC (30-36) % RDW (11.6-14.8) % Plt Count (150-400) X10^3/uL Neut % (Auto) (50-75) % Lymph % (Auto) (25-40) % Barber % (Auto) (3-14) % Eos % (Auto) (2-4) % Baso % (Auto) (0-2) % Neut # (Auto) (3986-3940) /uL Lymph # (Auto) (7482-7290) /uL Barber # (Auto) (0-900) /uL Eos # (Auto) (0-450) /uL Baso # (Auto) (0-100) /uL ABG pH 7.38 (7.35-7.45) ABG pCO2 46.5 H (35-45) mmHg ABG pO2 95 (80-100) mmHg ABG HCO3 27 H (22-26) mmol/L ABG Total CO2 29 (21-31) mmol/L ABG O2 Saturation 97 (95-100) % ABG Base Excess 2.0 (-2-2) mmol/L FiO2 21 Sodium 142 (137-145) mmol/L Potassium 3.9 (3.4-5.1) mmol/L Chloride 101 (98-107) mmol/L Carbon Dioxide 31 (22-32) mmol/L BUN 37 H (7-17) mg/dL Creatinine 1.40 H (0.52-1.04) mg/dL Estimated GFR 38.9 L (>60) mL/min BUN/Creatinine Ratio 26.4 H (6-22) Glucose 143 H (70-100) mg/dL Lactate (0.7-2.1) mmol/L Calcium 9.6 (8.4-10.2) mg/dL Troponin I < 0.012 (0.01-0.034) ng/mL B-Natriuretic Peptide (<100) Procalcitonin < 0.05 (<0.5) ng/mL ABG Data Attestation: I personally reviewed and interpreted this ABG as follows: Interpretation: Patient has a very reassuring ABG without significant abnormalities Imaging Data Chest x-ray: Radiologist's impression: [address] [address] XRay Report Signed Patient: Rocío Enriquez KMR#: [id number] : 2Acct:[id number] Age/Sex: 57 / FDate of Service: 09/23/18 Loc: [id number] Accession Number: [id number] Procedure: XR chest 1V Ordering Provider: Jenny Walker D.O. PROCEDURE: XR CHEST 1V INDICATIONS: previous HCAP vs aspiration PNA, pulmonary edema TECHNIQUE: One view of the chest was acquired. COMPARISON: [facility], , XR CHEST 2V, 09/20/2018, 9:48. FINDINGS: Surgical changes and devices: None. Lungs and pleura: Mild improvement in the aeration of the left lung is evident. Previously seen area of consolidation within the left upper lobe has largely resolved. However, the left diaphragm is obscured by a mild pulmonary consolidation. Inte rstitial prominence within the bilateral perihilar regions are present. There is no large effusion or pneumothorax. Mediastinum: Mediastinal contours appear normal. Heart size is enlarged. Bones and chest wall: No suspicious bony lesions. Overlying soft tissues appear unremarkable. IMPRESSION: 1. Cardiomegaly with associated vascular congestion is more pronounced on the current study, suggesting developing pulmonary edema. 2. Interval resolution of previously seen left upper lobe consolidation. There may be mild residual left basilar atelectasis. Dictated by: Santino Anton M.D. on 09/23/2018 at 7:43 Approved by: Santino Anton M.D. on 09/23/2018 at 7:45 MDM Narrative Medical decision making narrative: Multiple etiologies for patient's symptoms considered including: [Exacerbation of COPD versus pneumonia versus pulmonary embolism versus other] Patient's symptoms improved or duration of stay with above-stated therapies. Findings and discharge diagnosis discussed with patient/family followed by verbalization of understanding Return precautions discussed with patient/family whom verbalize understanding. Discharge Plan Departure Patient Disposition: Home Clinical Impression: Pneumonia Qualifiers: Pneumonia type: due to unspecified organism Laterality: unspecified laterality Lung location: lower lobe of lung Qualified Code(s): J18.1 - Lobar pneumonia, unspecified organism Discharge Date/Time: 10/10/18 15:16 Interventions: ED Discharge Assessment Last Done: 10/10/18 14:35 Instructions: DI for Pneumonia -- Adult Activity Restrictions/Additional Instructions: *You have been diagnosed with [pneumonia] *What to do: *Take medications as directed: Your antibiotic has been electronically transmitted to the [facility] in [place] at your request *Follow up with your primary care provider in 2-3 days, call for an appointment. Let them know you were seen in the Emergency Department and that we ask that you be seen in follow up *Return to ER if you should have any new, worsening or concerning symptoms Prescriptions: New doxycycline hyclate 100 mg tablet 100 mg PO BID Qty: 20 RF: 0 No Action carvedilol 25 mg Tablet 25 mg PO BID RF: 0 levetiracetam 500 mg tablet 500 mg PO BID RF: 0 hydralazine 25 mg tablet 25 mg PO TID RF: 0 ascorbic acid (vitamin C) [Vitamin C With Shona Hips] 500 mg Tablet 500 mg PO DAILY RF: 0 amlodipine 10 mg tablet 10 mg PO DAILY RF: 0 mupirocin 2 % ointment 1 applic topical DIRECTED RF: 0 nystatin 100,000 unit/gram powder 1 applic topical [id number] RF: 0 losartan 100 mg Tablet 100 mg PO DAILY RF: 0 potassium chloride 10 mEq tablet,ER particles/crystals 10 meq PO DAILY RF: 0 ferrous sulfate 325 mg (65 mg iron) Tablet 325 mg PO DAILY RF: 0 sennosides [senna] 8.6 mg Tablet 17.2 mg PO BEDTIME 30 Days RF: 0 ipratropium-albuterol 0.5 mg-3 mg(2.5 mg base)/3 mL Solution For Nebulization 3 ml INH [id number] 30 Days RF: 0 furosemide 40 mg tablet 40 mg PO DAILY RF: 0 pseudoephedrine HCl [Nasal Decongestant (pseudoeph)] 30 mg tablet 30 mg PO QID RF: 0 insulin lispro [Humalog U-100 Insulin] 100 unit/mL solution 10 units subcut 3-4XD RF: 0 Referrals: Nato Lin MD [Primary Care Provider] -
[2018-10-13 21:27] LABS: Enterococcus species Not Detected (Not Detect); Listeria monocytogenes Not Detected (Not Detect); Vancomycin-rest genes A/B Not Detected (Not Detect)
[2018-10-13 21:28] LABS: Staphylococcus species Detected (Not Detect)
[2018-10-13 21:30] LABS: Acinetobacter baumannii Not Detected (Not Detect); Candida albicans Not Detected (Not Detect); Candida glabrata Not Detected (Not Detect); Candida krusei Not Detected (Not Detect); Candida parapsilosis Not Detected (Not Detect); Candida tropicalis Not Detected (Not Detect); E. coli Not Detected (Not Detect); Enterobacter cloacae complex Not Detected (Not Detect); Enterobacteriaceae species Not Detected (Not Detect); Haemophilus influenzae Not Detected (Not Detect); Methicillin-resistant gene Detected (Not Detect); Neisseria meningitidis Not Detected (Not Detect); Proteus species Not Detected (Not Detect); Pseudomonas aeruginosa Not Detected (Not Detect); Serratia marcescens Not Detected (Not Detect); Streptococcus agalactiae (Gr B Not Detected (Not Detect); Streptococcus pneumonia Not Detected (Not Detect); Streptococcus pyogenes (Gr A) Not Detected (Not Detect); Streptococcus species Not Detected (Not Detect)
== END 2018-10-10 15:16 | disposition home or self-care (01) ==
PROVIDERS: Emergency Provider Emergency Medicine; PCP Family Medicine
DX: J18.1 Lobar pneumonia, unspecified organism (principal)
CPT/HCPCS: 36415; 36591; 36600; 71045; 80048; 82805; 83605; 83880; 84145; 84484; 85025; 87040; 87150; 87186; 87205; 99283; 99284

== ENCOUNTER 2018-10-20 10:51 | Inpatient (IN) | payer OTHER, MEDICAID, SELFPAY ==
[2018-09-20 16:23] VITALS: BMI 47.5
[2018-10-20] VITALS (15 sets, daily range): BP systolic 104–172; BP diastolic 44–93; PULSE 59–103; RESP 12–24; TEMP 36.4–36.6; O2SAT 92–99; BMI 44.6
[2018-10-20] MEDS: ALBUTEROL/IPRATROPIUM 3 ML AMPUL INH ×3 (11:14→23:17)
[2018-10-20 11:17] LABS: INR 1.1 (0.9-1.3); Prothrombin Time 12.8 SECONDS (10.1-12.7)
[2018-10-20 11:20] LABS: PTT Partial Thromboplastin Tim 30 SECONDS (26.4-36.2)
--- NOTE | 2018-10-20 11:21 | PC.NURSE ---
IV started by EMS [employer]
[2018-10-20 11:23] LABS: Alanine Aminotransferase 10 IU/L (9-52); Albumin 3.9 g/dL (3.5-5.0); Alkaline Phosphatase 79 U/L (38-126); Aspartate Aminotransferase 13 IU/L (14-36); Bilirubin Total 0.2 mg/dL (0.2-1.3); Blood Urea Nitrogen 90 mg/dL (7-17); Calcium 10.4 mg/dL (8.4-10.2); Carbon Dioxide 23 mmol/L (22-32); Chloride 103 mmol/L (98-107); Creatine Kinase < 20 U/L (30-135); Estimated Glomerular Filt Rate 25.8 mL/min (>60); Globulin 3.8 g/dL (1.7-4.1); Glucose 134 mg/dL (70-100); HEMOLYSIS < 15 (0-50); Magnesium 1.9 mg/dL (1.6-2.3); Potassium 3.9 mmol/L (3.4-5.1); Sodium 141 mmol/L (137-145); Total Protein 7.7 g/dL (6.3-8.2)
[2018-10-20] MEDS: methylPREDNISolone 125 MG/2 ML VIAL IV (11:27)
--- NOTE | 2018-10-20 11:27 | ED.SOB ---
HPI - SOB/Dyspnea General Chief Complaint: Shortness of Breath/Dyspnea Stated Complaint: SOB ext. Time Seen by Provider: 10/20/18 10:56 Source: patient, EMS and old records reviewed Mode of arrival: EMS Limitations: no limitations History of Present Illness Patient is a 57-year-old female with chronic respiratory failure on 2 L of oxygen at home with morbid obesity COPD and CHF with multiple recent hospitalizations presenting with increased shortness of breath. She was actually seen and evaluated here last week in the emergency department on 10/10/2018 where she was started on doxycycline. She says she does not really feel like she has gotten any better after that. She chronically has a cough. She says now she needs 2.5 L of oxygen sating of that is more than her normal. She has home health care nurse who thought that she may need to be admitted. MD Complaint: shortness of breath Relieving factors: oxygen Related Data Home Medications Medication Instructions Recorded Confirmed amlodipine 10 mg PO DAILY 09/20/18 10/20/18 ascorbic acid (vitamin C) [Vitamin 500 mg PO DAILY 09/20/18 10/10/18 C With Shona Hips] carvedilol 25 mg PO BID 09/20/18 10/20/18 ferrous sulfate 325 mg PO DAILY 09/20/18 10/10/18 hydralazine 25 mg PO TID 09/20/18 10/20/18 levetiracetam 500 mg PO BID 09/20/18 10/20/18 losartan 100 mg PO DAILY 09/20/18 10/20/18 mupirocin 1 applic TOPICAL DIRECTED 09/20/18 10/10/18 nystatin 1 applic TOPICAL [id number] 09/20/18 10/20/18 potassium chloride 10 meq PO DAILY 09/20/18 10/20/18 furosemide 20 mg PO DAILY 10/10/18 10/20/18 insulin lispro [Humalog U-100 10 units SUBCUT 3-4XD 10/10/18 10/20/18 Insulin] pseudoephedrine HCl [Nasal 30 mg PO QID 10/10/18 10/20/18 Decongestant (pseudoeph)] prochlorperazine maleate 10 mg TID 10/20/18 10/20/18 Previous Rx's Medication Instructions Recorded ipratropium-albuterol 3 ml INH [id number] 30 Days ml 09/26/18 sennosides [senna] 17.2 mg PO BEDTIME 30 Days tab 09/26/18 doxycycline hyclate 100 mg PO BID #20 tab 10/10/18 Allergies Allergy/AdvReac Type Severity Reaction Status Date / Time naproxen Allergy Mild MADE MY Verified 05/26/18 10:43 FACE NUMB meperidine Allergy Unknown Verified 05/26/18 10:43 Penicillins Allergy Unknown Verified 05/26/18 10:43 Sulfa (Sulfonamide Allergy Unknown Verified 05/26/18 10:43 Antibiotics) diphenhydramine AdvReac Shakiness Verified 05/26/18 10:43 [From Benadryl] Review of Systems Review of Systems ROS Unobtainable: All systems reviewed & are unremarkable except as noted in HPI and below Constitutional Denies chills, Denies fever(s), Denies lethargy and Denies weakness Eyes Denies change in vision, Denies eye discharge, Denies irritation and Denies loss of vision ENT Ears, Nose, Mouth, and Throat: Denies change in voice, Denies neck pain and Denies sore throat Cardiovascular Denies chest pain, Denies irregular heart rhythm, Denies lightheadedness, Denies palpitations and Denies orthopnea Respiratory Reports as per HPI Gastrointestinal Gastrointestinal: Denies abdominal pain, Denies change in bowel habits, Denies diarrhea, Denies nausea and Denies vomiting Genitourinary Denies hematuria, Denies flank pain, Denies urinary incontinence and Denies urinary urgency Musculoskeletal Denies neck pain Integumentary/Breasts Denies pruritus, Denies erythema, Denies rash and Denies wounds Neurologic Denies loss of vision and Denies weakness Endocrine Denies palpitations [facility] Medical History History of congestive heart failure (Acute) Chronic respiratory failure (Acute) Hypoxia (Acute) Meningioma (Acute) Diabetes (Acute) Morbidly obese (Acute) COPD (chronic obstructive pulmonary disease) (Acute) Hypertension (Acute) Surgical History Status post cholecystectomy (Acute) Status post appendectomy (Acute) Family History Daughter No problems noted. Son No problems noted. Mother Diabetes mellitus Congestive heart failure Father Diabetes mellitus Social History household members: significant other, family and children Smoking Status: Never smoker Family History Daughter No problems noted. Son No problems noted. Mother Diabetes mellitus Congestive heart failure Father Diabetes mellitus Social History household members: significant other, family and children Smoking Status: Never smoker Exam Initial Vital Signs Initial Vital Signs: Vital Signs Temperature 97.7 F 10/20/18 11:09 Pulse Rate 67 10/20/18 11:09 Respiratory Rate 24 10/20/18 11:09 Blood Pressure 110/54 L 10/20/18 11:09 Pulse Oximetry 93 10/20/18 11:09 GENERAL: Morbid obesity awake alert well-appearing HEENT: Head atraumatic,EOMI, pupils reactive, CARDIOVASCULAR: Regular rate and rhythm without murmurs, rubs or gallops. RESPIRATORY: Decreased breath sounds bilaterally ABDOMEN: Soft, nontender. Normoactive bowel sounds all 4 quadrants. No guarding or rebound. EXTREMITIES: Normal range of motion, no clubbing or edema. Neurovascularly intact NEUROLOGICAL: Alert and oriented SKIN: Warm, dry, no laceration, no petechiae, no rashes or lesions. Course Orders Ordered: ED Orders 10/20/18 10:40 B Type Natriuretic Peptide Stat Complete Blood Count AUTO DIFF Stat Comprehensive Metabolic Panel Stat Magnesium Stat Partial Thromboplastin Time Stat Procalcitonin Stat Prothrombin Time INR Stat Troponin & CK Cardiac Panel Stat 10/20/18 10:58 Consult to Respiratory Therapy Evaluate & Treat 10/20/18 11:06 EKG-12 Lead Stat 10/20/18 11:25 Blood Culture Stat Lactate (Lactic Acid) Stat 10/20/18 12:27 XR chest 1V Stat 10/20/18 13:26 Arterial Blood Gas Stat 10/20/18 14:10 Urine Culture Stat Urine Microscopic Stat 10/20/18 14:29 Respiratory Panel (Film Array) Stat Albuterol/Ipratropium (Duoneb) 3 ml INH RTBID KARTHIKEYAN Albuterol/Ipratropium (Duoneb) 3 ml INH RTQ4HR PRN PRN Reason: Shortness Of Breath Or Wheezing Stop: 10/21/18 11:25 Sodium Chloride (Normal Saline 0.9%) 1,000 mls @ 125 mls/hr IV CONT KARTHIKEYAN Last Infusion: 10/20/18 17:22 Dose: 80 mls/hr Infusion: 10/20/18 14:00 Dose: 80 mls/hr Admin: 10/20/18 13:34 Dose: 125 mls/hr Discontinued Medications Albuterol/Ipratropium (Duoneb) 3 ml INH NOW ONE Stop: 10/20/18 10:57 Last Admin: 10/20/18 11:14 Dose: 3 ml Albuterol/Ipratropium (Duoneb) 3 ml INH NOW PRN PRN Reason: Wheezing Stop: 10/21/18 11:25 Last Admin: 10/20/18 11:27 Dose: 3 ml Ceftriaxone Sodium/Dextrose (Rocephin) 1 gm in 50 mls @ 100 mls/hr IV NOW ONE Stop: 10/20/18 15:38 Last Infusion: 10/20/18 17:20 Dose: 0 mls/hr Admin: 10/20/18 16:33 Dose: 100 mls/hr Methylprednisolone (Solu-Medrol 125 Mg Vial) 125 mg IV NOW ONE Stop: 10/20/18 10:57 Last Admin: 10/20/18 11:27 Dose: 125 mg Vital Signs - 8 hr 10/20/18 11:09 10/20/18 11:15 10/20/18 11:29 Temperature 97.7 F Pulse Rate 67 63 66 Respiratory Rate 24 24 20 Blood Pressure 110/54 L Blood Pressure [Left Arm] Pulse Oximetry 93 95 95 10/20/18 12:00 10/20/18 13:00 10/20/18 13:30 Temperature Pulse Rate 59 L 73 82 Respiratory Rate 12 14 18 Blood Pressure Blood Pressure [Left Arm] 104/44 L 128/64 113/48 L Pulse Oximetry 92 92 94 10/20/18 14:30 10/20/18 15:30 10/20/18 17:00 Temperature Pulse Rate 80 82 90 Respiratory Rate 19 14 14 Blood Pressure Blood Pressure [Left Arm] 135/71 147/76 H 126/59 L Pulse Oximetry 95 99 94 10/20/18 17:38 10/20/18 17:47 Temperature 97.9 F Pulse Rate 93 H 101 H Respiratory Rate 18 22 Blood Pressure 126/51 L 166/89 H Blood Pressure [Left Arm] Pulse Oximetry 92 93 MDM - SOB/Dyspnea Lab Data Attestation: I reviewed the patient's lab results. Result diagrams: 10/20/18 10:40 10/20/18 10:40 Lab Results 10/20/18 10/20/18 10/20/18 Range/Units 10:40 10:40 10:40 WBC 12.1 H (4.5-11.0) X10^3/uL RBC 3.78 L (4.0-5.2) X10^6/uL Hgb 9.4 L (12.0-16.0) g/dL Hct 30.2 L (36-46) % MCV 79.9 L (80-100) fL MCH 24.9 L (26-34) PG MCHC 31.1 (30-36) % RDW 17.5 H (11.6-14.8) % Plt Count 370 (150-400) X10^3/uL Neut % (Auto) Not Reportable Lymph % (Auto) Not Reportable [place] % (Auto) Not Reportable Eos % (Auto) Not Reportable Baso % (Auto) Not Reportable Lymph # (Auto) Not Reportable [place] # (Auto) Not Reportable Baso # (Auto) Not Reportable Total Counted 100 Seg Neutrophils % 60.0 (38-70) % Band Neutrophils % 18.0 H (3-7) % Lymphocytes % (Manual) 15.0 L (25-45) % Monocytes % (Manual) 5.0 (2-11) % Eosinophils % (Manual) 1.0 L (2-4) % Basophils % (Manual) 1.0 (0-1) % Neutrophils # (Manual) 9438 H (8862-0322) /uL RBC Morphology See below Microcytosis 1+ H PT 12.8 H (10.1-12.7) SECONDS INR 1.1 (0.9-1.3) APTT 30 D (26.4-36.2) SECONDS ABG pH (7.35-7.45) ABG pCO2 (35-45) mmHg ABG pO2 (80-100) mmHg ABG HCO3 (22-26) mmol/L ABG Total CO2 (21-31) mmol/L ABG O2 Saturation (95-100) % ABG Base Excess (-2-2) mmol/L FiO2 Sodium 141 (137-145) mmol/L Potassium 3.9 (3.4-5.1) mmol/L Chloride 103 (98-107) mmol/L Carbon Dioxide 23 (22-32) mmol/L BUN 90 H (7-17) mg/dL Creatinine 2.00 H (0.52-1.04) mg/dL Estimated GFR 25.8 L (>60) mL/min BUN/Creatinine Ratio 45.0 H (6-22) Glucose 134 H (70-100) mg/dL Lactate (0.7-2.1) mmol/L Calcium 10.4 H (8.4-10.2) mg/dL Magnesium 1.9 (1.6-2.3) mg/dL Total Bilirubin 0.2 (0.2-1.3) mg/dL AST 13 L (14-36) IU/L ALT 10 (9-52) IU/L Alkaline Phosphatase 79 (38-126) U/L Total Creatine Kinase < 20 L (30-135) U/L CK-MB (CK-2) TNP CK-MB (CK-2) Rel Index TNP Troponin I < 0.012 (0.01-0.034) ng/mL B-Natriuretic Peptide < 100 (<100) Total Protein 7.7 (6.3-8.2) g/dL Albumin 3.9 (3.5-5.0) g/dL Globulin 3.8 (1.7-4.1) g/dL Albumin/Globulin Ratio 1.0 (1.0-2.8) Procalcitonin (<0.5) ng/mL Urine Color Urine Appearance Urine pH Ur Specific [place] Urine Protein Urine Glucose (UA) Urine Ketones Urine Occult Blood Urine Nitrate Urine Bilirubin Urine Urobilinogen Ur Leukocyte Esterase Urine RBC (0-5/HPF) Urine WBC (0-5/HPF) Ur Squamous Epith Cells (0-5/HPF) Ur Transition Epith Cell (0-5/HPF) Urine Bacteria (None) Ur Culture Indicated? Chlamy pneumoniae PCR (Not Detect) Adenovirus (PCR) (Not Detect) B.parapertussis DNA PCR (Not Detect) Coronavirus OC43 (PCR) (Not Detect) Coronavirus HKU1 (PCR) (Not Detect) Coronavirus 229E (PCR) (Not Detect) Coronavirus NL63 (PCR) (Not Detect) Human Metapneumovir PCR (Not Detect) Influenza Type A (PCR) (Not Detect) Influenza Type B (PCR) (Not Detect) M. pneumoniae (PCR) (Not Detect) Parainfluenza 1 (PCR) (Not Detect) Parainfluenza 2 (PCR) (Not Detect) Parainfluenza 3 (PCR) (Not Detect) Parainfluenza 4 (PCR) (Not Detect) RSV (PCR) (Not Detect) Entero/Rhino (PCR) (Not Detect) 10/20/18 10/20/18 10/20/18 Range/Units 10:40 11:25 13:26 WBC (4.5-11.0) X10^3/uL RBC (4.0-5.2) X10^6/uL Hgb (12.0-16.0) g/dL Hct (36-46) % MCV (80-100) fL MCH (26-34) PG MCHC (30-36) % RDW (11.6-14.8) % Plt Count (150-400) X10^3/uL Neut % (Auto) Lymph % (Auto) [place] % (Auto) Eos % (Auto) Baso % (Auto) Lymph # (Auto) [place] # (Auto) Baso # (Auto) Total Counted Seg Neutrophils % (38-70) % Band Neutrophils % (3-7) % Lymphocytes % (Manual) (25-45) % Monocytes % (Manual) (2-11) % Eosinophils % (Manual) (2-4) % Basophils % (Manual) (0-1) % Neutrophils # (Manual) (4786-7475) /uL RBC Morphology Microcytosis PT (10.1-12.7) SECONDS INR (0.9-1.3) APTT (26.4-36.2) SECONDS ABG pH 7.32 L (7.35-7.45) ABG pCO2 38.9 (35-45) mmHg ABG pO2 72 L (80-100) mmHg ABG HCO3 20 L (22-26) mmol/L ABG Total CO2 21 (21-31) mmol/L ABG O2 Saturation 93 L (95-100) % ABG Base Excess -6.0 L (-2-2) mmol/L FiO2 34 Sodium (137-145) mmol/L Potassium (3.4-5.1) mmol/L Chloride (98-107) mmol/L Carbon Dioxide (22-32) mmol/L BUN (7-17) mg/dL Creatinine (0.52-1.04) mg/dL Estimated GFR (>60) mL/min BUN/Creatinine Ratio (6-22) Glucose (70-100) mg/dL Lactate 0.8 (0.7-2.1) mmol/L Calcium (8.4-10.2) mg/dL Magnesium (1.6-2.3) mg/dL Total Bilirubin (0.2-1.3) mg/dL AST (14-36) IU/L ALT (9-52) IU/L Alkaline Phosphatase (38-126) U/L Total Creatine Kinase (30-135) U/L CK-MB (CK-2) CK-MB (CK-2) Rel Index Troponin I (0.01-0.034) ng/mL B-Natriuretic Peptide (<100) Total Protein (6.3-8.2) g/dL Albumin (3.5-5.0) g/dL Globulin (1.7-4.1) g/dL Albumin/Globulin Ratio (1.0-2.8) Procalcitonin 0.07 (<0.5) ng/mL Urine Color Urine Appearance Urine pH Ur Specific [place] Urine Protein Urine Glucose (UA) Urine Ketones Urine Occult Blood Urine Nitrate Urine Bilirubin Urine Urobilinogen Ur Leukocyte Esterase Urine RBC (0-5/HPF) Urine WBC (0-5/HPF) Ur Squamous Epith Cells (0-5/HPF) Ur Transition Epith Cell (0-5/HPF) Urine Bacteria (None) Ur Culture Indicated? Chlamy pneumoniae PCR (Not Detect) Adenovirus (PCR) (Not Detect) B.parapertussis DNA PCR (Not Detect) Coronavirus OC43 (PCR) (Not Detect) Coronavirus HKU1 (PCR) (Not Detect) Coronavirus 229E (PCR) (Not Detect) Coronavirus NL63 (PCR) (Not Detect) Human Metapneumovir PCR (Not Detect) Influenza Type A (PCR) (Not Detect) Influenza Type B (PCR) (Not Detect) M. pneumoniae (PCR) (Not Detect) Parainfluenza 1 (PCR) (Not Detect) Parainfluenza 2 (PCR) (Not Detect) Parainfluenza 3 (PCR) (Not Detect) Parainfluenza 4 (PCR) (Not Detect) RSV (PCR) (Not Detect) Entero/Rhino (PCR) (Not Detect) 10/20/18 10/20/18 Range/Units 14:10 14:29 WBC (4.5-11.0) X10^3/uL RBC (4.0-5.2) X10^6/uL Hgb (12.0-16.0) g/dL Hct (36-46) % MCV (80-100) fL MCH (26-34) PG MCHC (30-36) % RDW (11.6-14.8) % Plt Count (150-400) X10^3/uL Neut % (Auto) Lymph % (Auto) [place] % (Auto) Eos % (Auto) Baso % (Auto) Lymph # (Auto) [place] # (Auto) Baso # (Auto) Total Counted Seg Neutrophils % (38-70) % Band Neutrophils % (3-7) % Lymphocytes % (Manual) (25-45) % Monocytes % (Manual) (2-11) % Eosinophils % (Manual) (2-4) % Basophils % (Manual) (0-1) % Neutrophils # (Manual) (0500-3237) /uL RBC Morphology Microcytosis PT (10.1-12.7) SECONDS INR (0.9-1.3) APTT (26.4-36.2) SECONDS ABG pH (7.35-7.45) ABG pCO2 (35-45) mmHg ABG pO2 (80-100) mmHg ABG HCO3 (22-26) mmol/L ABG Total CO2 (21-31) mmol/L ABG O2 Saturation (95-100) % ABG Base Excess (-2-2) mmol/L FiO2 Sodium (137-145) mmol/L Potassium (3.4-5.1) mmol/L Chloride (98-107) mmol/L Carbon Dioxide (22-32) mmol/L BUN (7-17) mg/dL Creatinine (0.52-1.04) mg/dL Estimated GFR (>60) mL/min BUN/Creatinine Ratio (6-22) Glucose (70-100) mg/dL Lactate (0.7-2.1) mmol/L Calcium (8.4-10.2) mg/dL Magnesium (1.6-2.3) mg/dL Total Bilirubin (0.2-1.3) mg/dL AST (14-36) IU/L ALT (9-52) IU/L Alkaline Phosphatase (38-126) U/L Total Creatine Kinase (30-135) U/L CK-MB (CK-2) CK-MB (CK-2) Rel Index Troponin I (0.01-0.034) ng/mL B-Natriuretic Peptide (<100) Total Protein (6.3-8.2) g/dL Albumin (3.5-5.0) g/dL Globulin (1.7-4.1) g/dL Albumin/Globulin Ratio (1.0-2.8) Procalcitonin (<0.5) ng/mL Urine Color Cancelled Urine Appearance Cancelled Urine pH Cancelled Ur Specific [place] Cancelled Urine Protein Cancelled Urine Glucose (UA) Cancelled Urine Ketones Cancelled Urine Occult Blood Cancelled Urine Nitrate Cancelled Urine Bilirubin Cancelled Urine Urobilinogen Cancelled Ur Leukocyte Esterase Cancelled Urine RBC 0-1/hpf (0-5/HPF) Urine WBC 30-100/hpf H (0-5/HPF) Ur Squamous Epith Cells 1-5 /hpf (0-5/HPF) Ur Transition Epith Cell 1-5/hpf (0-5/HPF) Urine Bacteria Many (>30) H (None) Ur Culture Indicated? Specimen cultured Chlamy pneumoniae PCR Not detected (Not Detect) Adenovirus (PCR) Not detected (Not Detect) B.parapertussis DNA PCR Not detected (Not Detect) Coronavirus OC43 (PCR) Not detected (Not Detect) Coronavirus HKU1 (PCR) Not detected (Not Detect) Coronavirus 229E (PCR) Not detected (Not Detect) Coronavirus NL63 (PCR) Not detected (Not Detect) Human Metapneumovir PCR Not detected (Not Detect) Influenza Type A (PCR) Not detected (Not Detect) Influenza Type B (PCR) Not detected (Not Detect) M. pneumoniae (PCR) Not detected (Not Detect) Parainfluenza 1 (PCR) Not detected (Not Detect) Parainfluenza 2 (PCR) Not detected (Not Detect) Parainfluenza 3 (PCR) Not detected (Not Detect) Parainfluenza 4 (PCR) Not detected (Not Detect) RSV (PCR) Not detected (Not Detect) Entero/Rhino (PCR) Detected H (Not Detect) Urine Dip Bedside Urine Glucose Negative Bedside Urine Bilirubin - Negative Bedside Urine Ketone - Negative Urine Specific [place] 1.015 Bedside Urine Occult Blood - Negative Bedside Urine pH 7.5 Bedside Urine Protein + 30 Bedside Urine Urobilinogen - Negative Bedside Urine Nitrite - Negative Bedside Urine Leukocytes +++ 500 Esterase Imaging Data Chest x-ray: Radiologist's impression: PROCEDURE: XR CHEST 1V INDICATIONS: short of breath TECHNIQUE: One view of the chest was acquired. COMPARISON: Merged With [facility], , XR CHEST 1V, 10/10/2018, 12:20. FINDINGS: Surgical changes and devices: None. Lungs and pleura: The increased density is identified at the right lung base that partially obscures the diaphragm and probably similar to the previous exam given differences in imaging technique. A layering effusion appears to be present on the left, as well but probably is unchanged. No new areas of consolidation are evident. Mediastinum: Mediastinal contours appear normal. Heart size is normal. Bones and chest wall: No suspicious bony lesions. Overlying soft tissues appear unremarkable. IMPRESSION: Bilateral pleural effusions probably not significantly changed given differences in imaging technique. There likely is associated atelectasis. No new consolidation. Dictated by: Santino Anton M.D. on 10/20/2018 at 12:13 ECG Data Attestation: I personally reviewed and interpreted this ECG as follows: Prior ECG tracings: available for review Interpretation: Low voltage sinus rhythm rate [address] changes [place] interval 190 similar previous EKG MDM Narrative Medical decision making narrative: The patient overall is needing more oxygen than normal but does not appear to be much she is on in where from 3-4 L typically she is on 2 L. she now has a white count of 12.1 previously 6.7. She was not given steroids at that time only doxycycline. She is also noted to have increased creatinine and BUN creatinine today is 2.0 previously previously 1.4, BUN today 90 previously 37. This is possibly due to dehydration vs CHF, however BNP is less than 100, has been as high as 400 in the past. CHF seems less likely at this time. Due to her severe CHF she would need gentle rehydration. Possible PE with the recent hospitalization. Unable to do PE study due to elevated creatinine. Also possible failed outpatient treatment with doxycycline for pneumonia 1:[address] case [address] ji, who agrees admission is likely but requesting urinalysis respiratory panel. We did discuss possibility of PE. We discussed possibly empirically treating her however at this time anticoagulation was not recommended. Discharge Plan Departure Patient Disposition: Admitted As Inpatient Clinical Impression: Acute UTI Acute and chronic respiratory failure Qualifiers: Respiratory failure complication: hypoxia Qualified Code(s): J96.21 - Acute and chronic respiratory failure with hypoxia Discharge Date/Time: 10/20/18 17:42 Interventions: ED Discharge Assessment Last Done: 10/20/18 17:38 Admit Date/Time: 10/20/18 17:24 Admit Provider: Jenny Ji
[2018-10-20 11:30] LABS: B Type Natriuretic Peptide < 100 (<100)
[2018-10-20 11:31] LABS: Hematocrit 30.2 % (36-46); Hemoglobin 9.4 g/dL (12.0-16.0); Mean Corpuscular HGB Conc 31.1 % (30-36); Mean Corpuscular Hemoglobin 24.9 PG (26-34); Mean Corpuscular Volume 79.9 fL (80-100); Platelet Count 370 X10^3/uL (150-400); Red Blood Cell Count 3.78 X10^6/uL (4.0-5.2); Red Cell Distribution Width 17.5 % (11.6-14.8); White Blood Cell Count 12.1 X10^3/uL (4.5-11.0)
[2018-10-20 11:34] LABS: Troponin I < 0.012 ng/mL (0.01-0.034)
[2018-10-20 11:47] LABS: Add Manual Diff / Slide Review YES
[2018-10-20 11:50] LABS: Neutrophils Absolute Manual 9438 /uL (3000-5900); Total Cells Counted 100
[2018-10-20 11:51] LABS: Microcytosis 1+
[2018-10-20 11:52] LABS: Procalcitonin 0.07 ng/mL (<0.5)
[2018-10-20 11:54] LABS: Lactate (Lactic Acid) 0.8 mmol/L (0.7-2.1)
--- NOTE | 2018-10-20 12:27 | DI.RAD.S_ITS ---
PROCEDURE: XR CHEST 1V INDICATIONS: short of breath TECHNIQUE: One view of the chest was acquired. COMPARISON: [facility], CR, XR CHEST 1V, 10/10/2018, 12:20. FINDINGS: Surgical changes and devices: None. Lungs and pleura: The increased density is identified at the right lung base that partially obscures the diaphragm and probably similar to the previous exam given differences in imaging technique. A layering effusion appears to be present on the left, as well but probably is unchanged. No new areas of consolidation are evident. Mediastinum: Mediastinal contours appear normal. Heart size is normal. Bones and chest wall: No suspicious bony lesions. Overlying soft tissues appear unremarkable. IMPRESSION: Bilateral pleural effusions probably not significantly changed given differences in imaging technique. There likely is associated atelectasis. No new consolidation. Dictated by: Santino Anton M.D. on 10/20/2018 at 12:13 Approved by: Santino Anton M.D. on 10/20/2018 at 12:15
[2018-10-20] MEDS: SODIUM CHLORIDE 0.9% 1,000 ML 125 ML IV (13:34)
[2018-10-20 13:50] LABS: Fractionated Inspired Oxygen 34; HCO3 ABG 20 mmol/L (22-26); Oxygen Saturation ABG 93 % (95-100); PCO2 ABG 38.9 mmHg (35-45); PO2 ABG 72 mmHg (80-100); TCO2 ABG 21 mmol/L (21-31); pH ABG 7.32 (7.35-7.45)
--- NOTE | 2018-10-20 14:34 | PC.NURSE ---
Patient swabbed for Respiratory Panel, sent to lab. Pt assisted to BSC by TIMUR Zimmerman and urine specimen sent.
[2018-10-20 14:37] LABS: Bacteria Urine Many (>30); Culture Indicated Urine Specimen Cultured; RBC Urine 0-1/HPF (0-5/HPF); Squamous Epithelial Cell Urine 1-5 /HPF (0-5/HPF); Transitional Epi Cells Urine 1-5/HPF (0-5/HPF); WBC Urine 30-100/HPF (0-5/HPF)
[2018-10-20 16:06] LABS: Adenovirus Not Detected (Not Detect); Bordetella pertussis Not Detected (Not Detect); Chlamydophila pneumoniae Not Detected (Not Detect); Coronavirus 229E Not Detected (Not Detect); Coronavirus HKU1 Not Detected (Not Detect); Coronavirus NL 63 Not Detected (Not Detect); Coronavirus OC43 Not Detected (Not Detect); Human Metapneumovirus Not Detected (Not Detect); Human Rhinovirus/Enterovirus Detected (Not Detect); Influenza A Not Detected (Not Detect); Influenza B Not Detected (Not Detect); Mycoplasma pneumoniae Not Detected (Not Detect); Parainfluenza Virus 1 Not Detected (Not Detect); Parainfluenza Virus 2 Not Detected (Not Detect); Parainfluenza Virus 3 Not Detected (Not Detect); Parainfluenza Virus 4 Not Detected (Not Detect); Respiratory Syncytial Virus Not Detected (Not Detect)
[2018-10-20] MEDS: CEFTRIAXONE 1 GM/50 ML FROZ.PIGGY IV (16:33)
--- NOTE | 2018-10-20 19:48 | PC.NURSE ---
patient is A&O x4 pleasant and cooperative w/ staff and is able to make needs known when nec. Patient is able to help w/ pos. changes in bed but is not nec. able to re-pos self on own, patient understands the importance of pos. changes as she is red on coccyx. Waffle cushion was provided for patient. Patient has req. to have all 4 side rails elevated as she is afraid of falling out of bed, and likes to use them for helping herself readjust in bed. Patient was placed on droplet precautions due to a pos. Rhino virus swab done in ED. Patient's call light w/in reach, bed in low pos. alarm active and aware to use call light w/ needs.
--- NOTE | 2018-10-20 20:17 | P.HP_ITS ---
History of Present Illness Date Patient Seen: 10/20/18 Time Patient Seen: 20:11 Chief complaint: SOB ext. Narrative: The patient is a 57-year-old female with PMH significant for chronic respiratory failure w/ hypoxia and O2 dependence (2L at baseline), COPD, HTN, CHF, morbid obesity (BMI 45.8), recurrent UTIs, and meningioma. Patient presented to the ED 10/20/2018 out of concern for shortness of breath. Associated symptoms include chills, ough, wheezing, and dizziness w/ position change. Symptoms noted in the morning on day of admission, progressively worsening. Patient was recently seen in the ED and diagnosed with RUL pneumonia. She was d/c home on a course of doxycycline. Blood cx from that vision 1 of 2 positive for MRSA. Denies change in vision, chest pain, pa lpitations, abdominal pain, GI distress, nausea and vomiting. Denies exposure to ill contacts. Patient lives with her 13 and 36-year-old daughter. ED presentation and work-up WBC 12.1 HGB 9.4 PLT 370 NA 141 K 3.9 MG 1.9 CL 103 CA 10.4 GLU 134 CO2 23 BUN 90 CR 2.0 GFR 25.8 Trop <0.012 BNP 100 PCT 0.07 Urinalysis... + WBC 30-100 and bacteria > 30 + Entero / Rhino virus Patient History Medical History History of congestive heart failure (Acute) Chronic respiratory failure (Acute) Hypoxia (Acute) Meningioma (Acute) Diabetes (Acute) Morbidly obese (Acute) COPD (chronic obstructive pulmonary disease) (Acute) Hypertension (Acute) Surgical History Status post cholecystectomy (Acute) Status post appendectomy (Acute) Family History Daughter No problems noted. Son No problems noted. Mother Diabetes mellitus Congestive heart failure Father Diabetes mellitus Social History household members: significant other, family and children Smoking Status: Never smoker Family & Social History Family History Daughter No problems noted. Son No problems noted. Mother Diabetes mellitus Congestive heart failure Father Diabetes mellitus Social History: household members significant other,family,children Prior Living Arrangements Mobile home Safety & Behavioral: Feels Safe in Current Yes Environment Been Physically Hurt or No Threatened By a Person Suicidal Ideation Description None Suicide Plan Description No Plan Tobacco & Substance use: Smoking Status Never smoker alcohol intake frequency holiday/special occasion Substance Use Type does not use,marijuana Meds Home Medications Medication Instructions Recorded Confirmed Type amlodipine 10 mg PO DAILY 09/20/18 10/20/18 History ascorbic acid (vitamin C) [Vitamin 500 mg PO DAILY 09/20/18 10/10/18 History C With Shona Hips] carvedilol 25 mg PO BID 09/20/18 10/20/18 History ferrous sulfate 325 mg PO DAILY 09/20/18 10/10/18 History hydralazine 25 mg PO TID 09/20/18 10/20/18 History levetiracetam 500 mg PO BID 09/20/18 10/20/18 History losartan 100 mg PO DAILY 09/20/18 10/20/18 History mupirocin 1 applic TOPICAL DIRECTED 09/20/18 10/10/18 History nystatin 1 applic TOPICAL [id number] 09/20/18 10/20/18 History potassium chloride 10 meq PO DAILY 09/20/18 10/20/18 History ipratropium-albuterol 3 ml INH [id number] 30 Days ml 09/26/18 10/20/18 Rx sennosides [senna] 17.2 mg PO BEDTIME 30 Days tab 09/26/18 10/20/18 Rx doxycycline hyclate 100 mg PO BID #20 tab 10/10/18 10/20/18 Rx furosemide 20 mg PO DAILY 10/10/18 10/20/18 History insulin lispro [Humalog U-100 10 units SUBCUT 3-4XD 10/10/18 10/20/18 History Insulin] pseudoephedrine HCl [Nasal 30 mg PO QID 10/10/18 10/20/18 History Decongestant (pseudoeph)] prochlorperazine maleate 10 mg TID 10/20/18 10/20/18 History Allergies Allergy/AdvReac Type Severity Reaction Status Date / Time naproxen Allergy Mild MADE MY Verified 05/26/18 10:43 FACE NUMB meperidine Allergy Unknown Verified 05/26/18 10:43 Penicillins Allergy Unknown Verified 05/26/18 10:43 Sulfa (Sulfonamide Allergy Unknown Verified 05/26/18 10:43 Antibiotics) diphenhydramine AdvReac Shakiness Verified 05/26/18 10:43 [From Benadryl] Review of Systems Review of Systems All systems reviewed & are unremarkable except as noted in HPI and below Exam Vital Signs (past 8 hours): - 10/20/18 13:00 10/20/18 13:30 10/20/18 14:30 Temperature Pulse Rate 73 82 80 Respiratory Rate 14 18 19 Blood Pressure Blood Pressure [Left Arm] 128/64 113/48 L 135/71 Pulse Oximetry 92 94 95 10/20/18 15:30 10/20/18 17:00 10/20/18 17:38 Temperature Pulse Rate 82 90 93 H Respiratory Rate 14 14 18 Blood Pressure 126/51 L Blood Pressure [Left Arm] 147/76 H 126/59 L Pulse Oximetry 99 94 92 10/20/18 17:47 10/20/18 19:49 Temperature 97.9 F 97.6 F Pulse Rate 101 H 100 H Respiratory Rate 22 20 Blood Pressure 166/89 H 172/93 H Blood Pressure [Left Arm] Pulse Oximetry 93 96 Fraction of Inspired Oxygen 34 Oxygen Delivery Method Nasal Cannula Oxygen Flow Rate 3 Narrative Exam Narrative: Constitutional: NAD, morbidly obese BMI 45.2 Neurologic: AOx3, no focal neurological deficits Head: NC, AT Eyes: PERRL, EOMI, Ears: external ears normal, no otorrhea Nose: external nose normal, no rhinorrhea or epistaxis Throat: MMM, oropharynx w/o exudate Neck: no masses, lymphadenopathy, or JVD Chest / Respiratory: equal chest rise, tachypneic, + cough / spasmodic, coarse breath sounds Heart / CV: S1S2, tachycardic Abdomen / GI: round, NT, ND, + BS, no organomegaly : no suprapubic tenderness Peripheral / Vascular: warm to touch, DP and PT pulses palpable, + BLE edema 1- 2+ Musc: ROM diminished both upper and lower extremities. Strength equal bilat, but upper extremities > lower extremities Skin: pale appearance, intertrigo of folds, beneath left breast severe Objective Labs Result Diagrams: 10/21/18 05:05 10/21/18 05:05 Labs: Laboratory Results - last 24 hr 10/20/18 10/20/18 10/20/18 10:40 10:40 10:40 WBC 12.1 H RBC 3.78 L Hgb 9.4 L Hct 30.2 L MCV 79.9 L MCH 24.9 L MCHC 31.1 RDW 17.5 H Plt Count 370 Neut % (Auto) Not Reportable Lymph % (Auto) Not Reportable [place] % (Auto) Not Reportable Eos % (Auto) Not Reportable Baso % (Auto) Not Reportable Lymph # (Auto) Not Reportable [place] # (Auto) Not Reportable Baso # (Auto) Not Reportable Total Counted 100 Seg Neutrophils % 60.0 Band Neutrophils % 18.0 H Lymphocytes % (Manual) 15.0 L Monocytes % (Manual) 5.0 Eosinophils % (Manual) 1.0 L Basophils % (Manual) 1.0 Neutrophils # (Manual) 9438 H RBC Morphology See below Microcytosis 1+ H PT 12.8 H INR 1.1 APTT 30 D ABG pH ABG pCO2 ABG pO2 ABG HCO3 ABG Total CO2 ABG O2 Saturation ABG Base Excess FiO2 Sodium 141 Potassium 3.9 Chloride 103 Carbon Dioxide 23 BUN 90 H Creatinine 2.00 H Estimated GFR 25.8 L BUN/Creatinine Ratio 45.0 H Glucose 134 H Lactate Calcium 10.4 H Magnesium 1.9 Total Bilirubin 0.2 AST 13 L ALT 10 Alkaline Phosphatase 79 Total Creatine Kinase < 20 L CK-MB (CK-2) TNP CK-MB (CK-2) Rel Index TNP Troponin I < 0.012 B-Natriuretic Peptide < 100 Total Protein 7.7 Albumin 3.9 Globulin 3.8 Albumin/Globulin Ratio 1.0 Procalcitonin Urine Color Urine Appearance Urine pH Ur Specific [place] Urine Protein Urine Glucose (UA) Urine Ketones Urine Occult Blood Urine Nitrate Urine Bilirubin Urine Urobilinogen Ur Leukocyte Esterase Urine RBC Urine WBC Ur Squamous Epith Cells Ur Transition Epith Cell Urine Bacteria Ur Culture Indicated? Chlamy pneumoniae PCR Adenovirus (PCR) B.parapertussis DNA PCR Coronavirus OC43 (PCR) Coronavirus HKU1 (PCR) Coronavirus 229E (PCR) Coronavirus NL63 (PCR) Human Metapneumovir PCR Influenza Type A (PCR) Influenza Type B (PCR) M. pneumoniae (PCR) Parainfluenza 1 (PCR) Parainfluenza 2 (PCR) Parainfluenza 3 (PCR) Parainfluenza 4 (PCR) RSV (PCR) Entero/Rhino (PCR) 10/20/18 10/20/18 10/20/18 10:40 11:25 13:26 WBC RBC Hgb Hct MCV MCH MCHC RDW Plt Count Neut % (Auto) Lymph % (Auto) [place] % (Auto) Eos % (Auto) Baso % (Auto) Lymph # (Auto) [place] # (Auto) Baso # (Auto) Total Counted Seg Neutrophils % Band Neutrophils % Lymphocytes % (Manual) Monocytes % (Manual) Eosinophils % (Manual) Basophils % (Manual) Neutrophils # (Manual) RBC Morphology Microcytosis PT INR APTT ABG pH 7.32 L ABG pCO2 38.9 ABG pO2 72 L ABG HCO3 20 L ABG Total CO2 21 ABG O2 Saturation 93 L ABG Base Excess -6.0 L FiO2 34 Sodium Potassium Chloride Carbon Dioxide BUN Creatinine Estimated GFR BUN/Creatinine Ratio Glucose Lactate 0.8 Calcium Magnesium Total Bilirubin AST ALT Alkaline Phosphatase Total Creatine Kinase CK-MB (CK-2) CK-MB (CK-2) Rel Index Troponin I B-Natriuretic Peptide Total Protein Albumin Globulin Albumin/Globulin Ratio Procalcitonin 0.07 Urine Color Urine Appearance Urine pH Ur Specific [place] Urine Protein Urine Glucose (UA) Urine Ketones Urine Occult Blood Urine Nitrate Urine Bilirubin Urine Urobilinogen Ur Leukocyte Esterase Urine RBC Urine WBC Ur Squamous Epith Cells Ur Transition Epith Cell Urine Bacteria Ur Culture Indicated? Chlamy pneumoniae PCR Adenovirus (PCR) B.parapertussis DNA PCR Coronavirus OC43 (PCR) Coronavirus HKU1 (PCR) Coronavirus 229E (PCR) Coronavirus NL63 (PCR) Human Metapneumovir PCR Influenza Type A (PCR) Influenza Type B (PCR) M. pneumoniae (PCR) Parainfluenza 1 (PCR) Parainfluenza 2 (PCR) Parainfluenza 3 (PCR) Parainfluenza 4 (PCR) RSV (PCR) Entero/Rhino (PCR) 10/20/18 10/20/18 14:10 14:29 WBC RBC Hgb Hct MCV MCH MCHC RDW Plt Count Neut % (Auto) Lymph % (Auto) [place] % (Auto) Eos % (Auto) Baso % (Auto) Lymph # (Auto) [place] # (Auto) Baso # (Auto) Total Counted Seg Neutrophils % Band Neutrophils % Lymphocytes % (Manual) Monocytes % (Manual) Eosinophils % (Manual) Basophils % (Manual) Neutrophils # (Manual) RBC Morphology Microcytosis PT INR APTT ABG pH ABG pCO2 ABG pO2 ABG HCO3 ABG Total CO2 ABG O2 Saturation ABG Base Excess FiO2 Sodium Potassium Chloride Carbon Dioxide BUN Creatinine Estimated GFR BUN/Creatinine Ratio Glucose Lactate Calcium Magnesium Total Bilirubin AST ALT Alkaline Phosphatase Total Creatine Kinase CK-MB (CK-2) CK-MB (CK-2) Rel Index Troponin I B-Natriuretic Peptide Total Protein Albumin Globulin Albumin/Globulin Ratio Procalcitonin Urine Color Cancelled Urine Appearance Cancelled Urine pH Cancelled Ur Specific [place] Cancelled Urine Protein Cancelled Urine Glucose (UA) Cancelled Urine Ketones Cancelled Urine Occult Blood Cancelled Urine Nitrate Cancelled Urine Bilirubin Cancelled Urine Urobilinogen Cancelled Ur Leukocyte Esterase Cancelled Urine RBC 0-1/hpf Urine WBC 30-100/hpf H Ur Squamous Epith Cells 1-5 /hpf Ur Transition Epith Cell 1-5/hpf Urine Bacteria Many (>30) H Ur Culture Indicated? Specimen cultured Chlamy pneumoniae PCR Not detected Adenovirus (PCR) Not detected B.parapertussis DNA PCR Not detected Coronavirus OC43 (PCR) Not detected Coronavirus HKU1 (PCR) Not detected Coronavirus 229E (PCR) Not detected Coronavirus NL63 (PCR) Not detected Human Metapneumovir PCR Not detected Influenza Type A (PCR) Not detected Influenza Type B (PCR) Not detected M. pneumoniae (PCR) Not detected Parainfluenza 1 (PCR) Not detected Parainfluenza 2 (PCR) Not detected Parainfluenza 3 (PCR) Not detected Parainfluenza 4 (PCR) Not detected RSV (PCR) Not detected Entero/Rhino (PCR) Detected H Assessment & Plan Assessment & Plan narrative: Patient is being admitted for acute respiratory failure with hypoxia, a UTI, and an MICHAEL. Respiratory Failure ([id number]), present on admission, active - Suspected to be in the setting of viral infection entero/rhino PCR +, PCT 0.07 (WNL), lactate 0.8 (WNL) - Consult RT, eval and treat - Bronchodilators prn - Supplemental O2 PRN. Goal O2 88-92%, h/o COPD. - Incentive spirometer - Place in isolation - + MRSA on blood cx 10/10, will add vancomycin in am if increasing leukocytosis and improved renal function Kidney Injury (Acute), present on admission, active - sCr trend? 2.0 (10/20), 1.4 (10/10), 0.6 (09/24). Baseline 0.6-0.9 mg/dL - Hydrate gently. Will give her intermittent NS boluses Q4H. - Trend sCr - Avoid nephrotoxic agents, treat acute pathology (ie UTI), optimize oxygenation UTI (complicated), acute, present on admission, active Urinalysis... WBC 30, bacteria > 30. No s/s of sepsis. H/O recurrent UTIs, at least 3 since Apr 2018. Prior urine cx + Klebsiella and Proteus sp. Known MDR to ampicillin. - urine culture pending - ceftriaxone 1 gm daily x7 days candidiasis intertrigo, subacute / refractory to topical therapy, present on admission, active - fluconazole 150 mg tonight and weekly x4 total weeks - nystatin ointment microcytic hypochronic anemia, chronic condition, present on admission, active Hgb 9.4 MCV 79.9 MCH 24.9 - Hgb stable, continue trending w/ routine lab. No active s/s of bleeling. - Resume [employer] FeSO4 and Vit C. Code status. Full code. Designates her son, Arsenio Contreras, as surrogate decision maker. VTE prophylaxis: SCDs, Heparin SC
[2018-10-20] MEDS: HEPARIN 5,000 UNIT/ML VIAL 5000 UNIT SUBCUT (22:14)
[2018-10-20] MEDS: FLUCONAZOLE 150 MG TABLET PO (22:15)
[2018-10-20] MEDS: NYSTATIN OINTMENT 15 APPLIC/TUBE OINT...G. TOP (22:16)
[2018-10-21] VITALS (14 sets, daily range): BP systolic 147–164; BP diastolic 66–107; PULSE 73–106; RESP 16–20; TEMP 36.6–37; O2SAT 94–100
[2018-10-21] MEDS: SODIUM CHLORIDE 0.9% 500 ML IV (00:10)
[2018-10-21] MEDS: ACETAMINOPHEN 325 MG TABLET 650 MG PO ×3 (00:41→19:52)
--- NOTE | 2018-10-21 01:10 | PC.NURSE ---
Addendum entered by Beverley Galeano R.N. 10/21/18 04:29: Complaining of 8/10 generalized pain, restless, anxious and needing frequent attention. Discussed with ALVARADO Maya and order received for Morphine and Morphine administered at this time. Original Note: Patient is alert and oriented but extremely anxious. Breath sounds diminished with expiratory rhonchi throughout. Expresses feeling of SOB even at rest. Expectorating small amounts cream colored sputum. Has persistent, intermittent moist sounding cough. On oxygen at 2L/min (per home regimen) and is on continuous oximetry with sat at 94%. HRR and on telemetry was ST with BBB; HR 103 on monitor. Denies nausea. BT present and abdomen is soft. Yeast under left breast and bilateral abdominal folds; skin is reddened (particularly under breast) and cracked. Indwelling catheter is patent. 2+ bilateral LE edema noted. Wearing bilateral SCD's. Complains of 8/10 chronic back pain so order obtained for Tylenol and Tylenol administered after verification by pharmacy. Will need assistance to turn in bed q2h to prevent breakdown; placed in Radhika bed to facilitate frequency repositioning. Was able to transfer from bed to chair with walker and 2 assist so beds could be switched out. Fall risk score is high and bed alarm is activated.
[2018-10-21] MEDS: ALBUTEROL/IPRATROPIUM 3 ML AMPUL INH ×3 (03:08→16:34)
[2018-10-21] MEDS: SODIUM CHLORIDE 0.9% FLUSH 10 ML IV ×2 (04:20→19:53)
[2018-10-21] MEDS: MORPHINE 2 MG/ML INJ IV (04:20)
[2018-10-21 05:29] LABS: Hematocrit 31.2 % (36-46); Mean Corpuscular Hemoglobin 25.1 PG (26-34); Mean Corpuscular Volume 78.5 fL (80-100); Platelet Count 400 X10^3/uL (150-400); Red Blood Cell Count 3.97 X10^6/uL (4.0-5.2); Red Cell Distribution Width 17.4 % (11.6-14.8); White Blood Cell Count 18.2 X10^3/uL (4.5-11.0)
[2018-10-21 05:33] LABS: Add Manual Diff / Slide Review YES
[2018-10-21 05:35] LABS: BUN Creatinine Ratio 56.2 (6-22); Blood Urea Nitrogen 73 mg/dL (7-17); Calcium 10.5 mg/dL (8.4-10.2); Carbon Dioxide 22 mmol/L (22-32); Chloride 112 mmol/L (98-107); Estimated Glomerular Filt Rate 42.4 mL/min (>60); Glucose 164 mg/dL (70-100); HEMOLYSIS < 15 (0-50); Potassium 3.6 mmol/L (3.4-5.1); Sodium 146 mmol/L (137-145)
[2018-10-21 05:52] LABS: Neutrophils Absolute Manual 16198 /uL (3000-5900); Total Cells Counted 100
[2018-10-21 05:54] LABS: Anisocytosis 1+
[2018-10-21] MEDS: CEFTRIAXONE 2 GM/50 ML FROZ.PIGGY IV (09:17)
[2018-10-21] MEDS: SODIUM CHLORIDE 0.45% 1,000 ML 70 ML IV (09:17)
[2018-10-21] MEDS: LACTOBACILLUS ACIDOPHILUS TABLET 1 EACH PO ×2 (09:18→11:46)
[2018-10-21] MEDS: HEPARIN 5,000 UNIT/ML VIAL 5000 UNIT SUBCUT ×2 (09:18→20:32)
[2018-10-21] MEDS: NYSTATIN OINTMENT 15 APPLIC/TUBE OINT...G. TOP ×3 (09:19→20:33)
[2018-10-21] MEDS: CODEINE/GUAIFENESIN LIQUID 5ML UDC 10 ML PO (09:24)
--- NOTE | 2018-10-21 10:16 | PM.PN.1 ---
Subjective Date Patient Seen: 10/21/18 Interval history: Rocío Enriquez is a 57-year-old female with a past medical history significant for hypertension, diabetes mellitus type 2, insulin using, COPD with chronic respiratory failure on 2 L of oxygen, morbid obesity, meningioma who presented for shortness of breath. The patient is sitting in bed comfortably. She endorses a minimally productive cough. Plan to start Mucinex, Sudafed, acapella and bronchodilators. She denies headache, shortness of breath, abdominal pain, nausea, vomiting, fever, chills, dysuria, diarrhea or constipation. She is voiding via bassett catheter. She is up ambulating minimally and requiring a significant amount of assistance. Had long discussion regarding her steady decline over the last several months and inability to care for herself at home. Again discussed and reiterated importance of lifestyle modification which for her is mainly diet driven weight loss. Patient requires skilled rehab at this point due to significant debility. Exam Vital Signs (past 8 hours): - 10/21/18 03:08 10/21/18 03:53 10/21/18 09:00 Temperature 98.3 F Pulse Rate 106 H 105 H 94 H Respiratory Rate 20 16 16 Blood Pressure 160/66 H 164/78 H Pulse Oximetry 95 95 97 Fraction of Inspired Oxygen 34 Oxygen Delivery Method Nasal Cannula Oxygen Flow Rate 2 Narrative Exam Narrative: General: Middle aged female sitting in bed comfortably and in no acute distress, appears significantly older than stated age, mildly disheveled, well-developed, well-nourished, emotionally labile but otherwise appropriately interactive. HEENT: Normocephalic, atraumatic. External ears without defect. Pupils equal, round, and reactive to light. Anicteric sclerae, moist conjunctivae, and no lid lag. No oral exudates or thrush. Neck: Supple with full range of motion. No JVD. No lymphadenopathy or thyromegaly. Cardiovascular: Regular rate and rhythm without murmurs, rubs, or gallops appreciated. Pulmonary: Diminished throughout with scattered rhonchi in all lung ramirez and occasional wheeze. No crackle. Normal respiratory effort with no use of accessory muscles. Abdomen: Soft, obese, bowel sounds present, nontender, nondistended. No hepatosplenomegaly or masses appreciated. Extremities: No clubbing, cyanosis, or edema. Skin: Normal temperature, turgor, and texture; severe Alexandra intertrigo in skin folds especially under breasts. No ulcers or subcutaneous nodules appreciated. Neurological: Cranial nerves grossly intact. Significantly debilitated with generalized weakness. Psychiatric: Depressed mood and flat affect. Emotional lability. Alert and oriented to person, place, and time. Objective Labs Result Diagrams: 10/22/18 05:24 10/22/18 05:24 Labs: Laboratory Results - last 24 hr 10/20/18 10/20/18 10/20/18 10:40 10:40 10:40 WBC 12.1 H RBC 3.78 L Hgb 9.4 L Hct 30.2 L MCV 79.9 L MCH 24.9 L MCHC 31.1 RDW 17.5 H Plt Count 370 Neut % (Auto) Not Reportable Lymph % (Auto) Not Reportable [place] % (Auto) Not Reportable Eos % (Auto) Not Reportable Baso % (Auto) Not Reportable Lymph # (Auto) Not Reportable [place] # (Auto) Not Reportable Baso # (Auto) Not Reportable Total Counted 100 Seg Neutrophils % 60.0 Band Neutrophils % 18.0 H Lymphocytes % (Manual) 15.0 L Monocytes % (Manual) 5.0 Eosinophils % (Manual) 1.0 L Basophils % (Manual) 1.0 Metamyelocytes % Neutrophils # (Manual) 9438 H RBC Morphology See below Anisocytosis Microcytosis 1+ H PT 12.8 H INR 1.1 APTT 30 D ABG pH ABG pCO2 ABG pO2 ABG HCO3 ABG Total CO2 ABG O2 Saturation ABG Base Excess FiO2 Sodium 141 Potassium 3.9 Chloride 103 Carbon Dioxide 23 BUN 90 H Creatinine 2.00 H Estimated GFR 25.8 L BUN/Creatinine Ratio 45.0 H Glucose 134 H Lactate Calcium 10.4 H Magnesium 1.9 Total Bilirubin 0.2 AST 13 L ALT 10 Alkaline Phosphatase 79 Total Creatine Kinase < 20 L CK-MB (CK-2) TNP CK-MB (CK-2) Rel Index TNP Troponin I < 0.012 B-Natriuretic Peptide < 100 Total Protein 7.7 Albumin 3.9 Globulin 3.8 Albumin/Globulin Ratio 1.0 Procalcitonin Urine Color Urine Appearance Urine pH Ur Specific [place] Urine Protein Urine Glucose (UA) Urine Ketones Urine Occult Blood Urine Nitrate Urine Bilirubin Urine Urobilinogen Ur Leukocyte Esterase Urine RBC Urine WBC Ur Squamous Epith Cells Ur Transition Epith Cell Urine Bacteria Ur Culture Indicated? Chlamy pneumoniae PCR Adenovirus (PCR) B.parapertussis DNA PCR Coronavirus OC43 (PCR) Coronavirus HKU1 (PCR) Coronavirus 229E (PCR) Coronavirus NL63 (PCR) Human Metapneumovir PCR Influenza Type A (PCR) Influenza Type B (PCR) M. pneumoniae (PCR) Parainfluenza 1 (PCR) Parainfluenza 2 (PCR) Parainfluenza 3 (PCR) Parainfluenza 4 (PCR) RSV (PCR) Entero/Rhino (PCR) 10/20/18 10/20/18 10/20/18 10:40 11:25 13:26 WBC RBC Hgb Hct MCV MCH MCHC RDW Plt Count Neut % (Auto) Lymph % (Auto) [place] % (Auto) Eos % (Auto) Baso % (Auto) Lymph # (Auto) [place] # (Auto) Baso # (Auto) Total Counted Seg Neutrophils % Band Neutrophils % Lymphocytes % (Manual) Monocytes % (Manual) Eosinophils % (Manual) Basophils % (Manual) Metamyelocytes % Neutrophils # (Manual) RBC Morphology Anisocytosis Microcytosis PT INR APTT ABG pH 7.32 L ABG pCO2 38.9 ABG pO2 72 L ABG HCO3 20 L ABG Total CO2 21 ABG O2 Saturation 93 L ABG Base Excess -6.0 L FiO2 34 Sodium Potassium Chloride Carbon Dioxide BUN Creatinine Estimated GFR BUN/Creatinine Ratio Glucose Lactate 0.8 Calcium Magnesium Total Bilirubin AST ALT Alkaline Phosphatase Total Creatine Kinase CK-MB (CK-2) CK-MB (CK-2) Rel Index Troponin I B-Natriuretic Peptide Total Protein Albumin Globulin Albumin/Globulin Ratio Procalcitonin 0.07 Urine Color Urine Appearance Urine pH Ur Specific [place] Urine Protein Urine Glucose (UA) Urine Ketones Urine Occult Blood Urine Nitrate Urine Bilirubin Urine Urobilinogen Ur Leukocyte Esterase Urine RBC Urine WBC Ur Squamous Epith Cells Ur Transition Epith Cell Urine Bacteria Ur Culture Indicated? Chlamy pneumoniae PCR Adenovirus (PCR) B.parapertussis DNA PCR Coronavirus OC43 (PCR) Coronavirus HKU1 (PCR) Coronavirus 229E (PCR) Coronavirus NL63 (PCR) Human Metapneumovir PCR Influenza Type A (PCR) Influenza Type B (PCR) M. pneumoniae (PCR) Parainfluenza 1 (PCR) Parainfluenza 2 (PCR) Parainfluenza 3 (PCR) Parainfluenza 4 (PCR) RSV (PCR) Entero/Rhino (PCR) 10/20/18 10/20/18 10/21/18 14:10 14:29 05:05 WBC 18.2 H D RBC 3.97 L Hgb 10.0 L Hct 31.2 L MCV 78.5 L MCH 25.1 L MCHC 32.0 RDW 17.4 H Plt Count 400 Neut % (Auto) Not Reportable Lymph % (Auto) Not Reportable [place] % (Auto) Not Reportable Eos % (Auto) Not Reportable Baso % (Auto) Not Reportable Lymph # (Auto) Not Reportable [place] # (Auto) Not Reportable Baso # (Auto) Not Reportable Total Counted 100 Seg Neutrophils % 80.0 H Band Neutrophils % 9.0 H Lymphocytes % (Manual) 8.0 L Monocytes % (Manual) 2.0 Eosinophils % (Manual) Basophils % (Manual) Metamyelocytes % 1.0 H Neutrophils # (Manual) 52788 H RBC Morphology See below Anisocytosis 1+ H Microcytosis PT INR APTT ABG pH ABG pCO2 ABG pO2 ABG HCO3 ABG Total CO2 ABG O2 Saturation ABG Base Excess FiO2 Sodium Potassium Chloride Carbon Dioxide BUN Creatinine Estimated GFR BUN/Creatinine Ratio Glucose Lactate Calcium Magnesium Total Bilirubin AST ALT Alkaline Phosphatase Total Creatine Kinase CK-MB (CK-2) CK-MB (CK-2) Rel Index Troponin I B-Natriuretic Peptide Total Protein Albumin Globulin Albumin/Globulin Ratio Procalcitonin Urine Color Cancelled Urine Appearance Cancelled Urine pH Cancelled Ur Specific [place] Cancelled Urine Protein Cancelled Urine Glucose (UA) Cancelled Urine Ketones Cancelled Urine Occult Blood Cancelled Urine Nitrate Cancelled Urine Bilirubin Cancelled Urine Urobilinogen Cancelled Ur Leukocyte Esterase Cancelled Urine RBC 0-1/hpf Urine WBC 30-100/hpf H Ur Squamous Epith Cells 1-5 /hpf Ur Transition Epith Cell 1-5/hpf Urine Bacteria Many (>30) H Ur Culture Indicated? Specimen cultured Chlamy pneumoniae PCR Not detected Adenovirus (PCR) Not detected B.parapertussis DNA PCR Not detected Coronavirus OC43 (PCR) Not detected Coronavirus HKU1 (PCR) Not detected Coronavirus 229E (PCR) Not detected Coronavirus NL63 (PCR) Not detected Human Metapneumovir PCR Not detected Influenza Type A (PCR) Not detected Influenza Type B (PCR) Not detected M. pneumoniae (PCR) Not detected Parainfluenza 1 (PCR) Not detected Parainfluenza 2 (PCR) Not detected Parainfluenza 3 (PCR) Not detected Parainfluenza 4 (PCR) Not detected RSV (PCR) Not detected Entero/Rhino (PCR) Detected H 10/21/18 05:05 WBC RBC Hgb Hct MCV MCH MCHC RDW Plt Count Neut % (Auto) Lymph % (Auto) [place] % (Auto) Eos % (Auto) Baso % (Auto) Lymph # (Auto) [place] # (Auto) Baso # (Auto) Total Counted Seg Neutrophils % Band Neutrophils % Lymphocytes % (Manual) Monocytes % (Manual) Eosinophils % (Manual) Basophils % (Manual) Metamyelocytes % Neutrophils # (Manual) RBC Morphology Anisocytosis Microcytosis PT INR APTT ABG pH ABG pCO2 ABG pO2 ABG HCO3 ABG Total CO2 ABG O2 Saturation ABG Base Excess FiO2 Sodium 146 H Potassium 3.6 Chloride 112 H Carbon Dioxide 22 BUN 73 H Creatinine 1.30 H Estimated GFR 42.4 L BUN/Creatinine Ratio 56.2 H Glucose 164 H Lactate Calcium 10.5 H Magnesium 2.0 Total Bilirubin AST ALT Alkaline Phosphatase Total Creatine Kinase CK-MB (CK-2) CK-MB (CK-2) Rel Index Troponin I B-Natriuretic Peptide Total Protein Albumin Globulin Albumin/Globulin Ratio Procalcitonin Urine Color Urine Appearance Urine pH Ur Specific [place] Urine Protein Urine Glucose (UA) Urine Ketones Urine Occult Blood Urine Nitrate Urine Bilirubin Urine Urobilinogen Ur Leukocyte Esterase Urine RBC Urine WBC Ur Squamous Epith Cells Ur Transition Epith Cell Urine Bacteria Ur Culture Indicated? Chlamy pneumoniae PCR Adenovirus (PCR) B.parapertussis DNA PCR Coronavirus OC43 (PCR) Coronavirus HKU1 (PCR) Coronavirus 229E (PCR) Coronavirus NL63 (PCR) Human Metapneumovir PCR Influenza Type A (PCR) Influenza Type B (PCR) M. pneumoniae (PCR) Parainfluenza 1 (PCR) Parainfluenza 2 (PCR) Parainfluenza 3 (PCR) Parainfluenza 4 (PCR) RSV (PCR) Entero/Rhino (PCR) Assessment & Plan Assessment & Plan narrative: Rocío Enriquez is a 57-year-old female with a past medical history significant for hypertension, diabetes mellitus type 2, insulin using, COPD with chronic respiratory failure on 2 L of oxygen, morbid obesity, meningioma who presented for shortness of breath. 1. Acute on chronic hypoxemic respiratory failure, present on admission. Acute portion resolved. -Acute portion suspected to be in the setting of viral infection with rhinovirus. Chronic portion likely secondary to morbid obesity, OHS, and MEGAN. -Patient presented with shortness of breath. -Patient is on 2.5 L of continuous supplemental oxygen chronically. Initially required 3-3.5 L of supplemental oxygen but now back to baseline oxygen requirement. -Continue respiratory therapy evaluation treatment. Continue DuoNebs every 4 hours while awake and albuterol nebs every 2 hours as needed for shortness of breath. -Ordered bedside spirometry to assess if patient meets requirements for BiPAP/trilogy, pending. Of note, patient reports previous study performed at [facility] during previous admission demonstrated sleep apnea. 2. Acute viral pneumonia, present on admission. Active. -Respiratory viral PCR positive for rhinovirus. -Continue respiratory therapy evaluation treatment. Ordered Acapella to be performed with nebulizers and 10 times every 1 hour. Continue duo nebs every 4 hours while awake and albuterol nebs every 2 hours as needed for shortness of breath. Ordered spirometry as patient likely would be candidate for trilogy. -Continue Mucinex 1200 mg twice daily to thin mucous secretions and Sudafed 60 mg twice daily to decrease congestion. -Chest x-ray interpreted by [facility] demonstrated small bilateral pleural effusion and chronic lung changes without focal consolidation or infiltrate. 3. Acute urinary tract infection, present on admission. Active. -History of recurrent UTIs, at least 3 since Apr 2018. Prior urine culture grew Klebsiella and Proteus sp. Known MDR to ampicillin. -Urinalysis grossly positive for infection. Urine culture preliminarily growing gram-negative bacilli. -Continue ceftriaxone 2 g daily pending urine culture identification and sensitivities. 4. Recent positive blood cultures with MRSA. -Patient was prescribed 10 day course doxycycline for pneumonia by ED on 10/10. -Blood cultures x2 have no growth after 24 hours. -Increasing leukocytosis likely secondary to glucocorticoid administration. Will hold off on starting vancomycin and if leukocytosis continues to increase and/or blood cultures resulted positive or she has increasing signs of infection will start vancomycin. 5. Alexandra intertrigo, acute on chronic, present on admission. Active. -Continue fluconazole 150 mg x3 doses -Continue nystatin ointment and cream applied to area twice daily. 6. Acute kidney injury, present on admission. Resolving. -Initial creatinine 2.0. Baseline 0.6-0.9 mg/dL. -Continue IV fluid. -Avoid nephrotoxic agents. Optimize renal perfusion. 7. Diastolic congestive heart failure, chronic, present on admission. Stable. -Previous echocardiogram 09/08/18 demonstrated normal LV size and function with EF 60-65%, no significant valvular abnormalities, and unobtainable diastolic assessment due to body habitus. -Continue home Lasix 40 mg twice daily, carvedilol 25 mg twice daily and losartan 100 mg daily. Increase potassium chloride 10 mEq daily to 20 mEq daily and will continue to titrate up as needed. -Continue strict I&O and daily weights. 8. Hypertension, chronic, present on admission. Stable. -Continue carvedilol 25 mg twice daily, amlodipine 10 mg daily, and losartan 100 mg daily. 9. Diabetes mellitus type 2, insulin using, chronic, present on admission. Stable. -Hemoglobin A1cn 6.2% indicative of tight control. -Started Lantus 15 units daily at bedtime and prandial Novolog 10 units 3 times daily with meals. -Continue ACHS glucose checks and low dose correctional scale insulin. 10. Meningioma, chronic, present on admission. Stable. -Presumably stable and not related to current symptoms. Neurosurgical outpatient evaluation is in process. -Continue Keppra 500 mg twice daily for seizure prophylaxis. 11. Morbid obesity, present on admission. Stable. -BMI 45.2 -Discussed lifestyle modification in detail including: Diet and exercise (unrealistic for patient to perform much exercise due to physical debility/generalized weakness). 12. Probable situational vs major depression, present on admission. Active. -Patient has very little motivation. She has been hospitalized repeatedly since the beginning of the year which is likely a driving factor in situation vs major depression. -Patient hesitant/adversion (due to previous experience with her ex on antidepressant) but now willing to take an antidepressant. Ordered fluoxetine 20 mg daily as this antidepressant has a stimulating affect. Recommended counseling, specifically cognitive behavioral therapy. 13. Microcytic hypochronic anemia, chronic, present on admission. Stable. -Initial Hgb 9.4 with MCV 79.9. No overt signs of bleeding and blood counts stable. -Held ferrous sulfate and Vit C while patient has an acute infection. -Continue to monitor blood counts closely. Disposition: Patient likely to discharge to senior care facility in several days once urine culture and sensitivities have resulted in her breathing is optimized.
[2018-10-21 11:20] LABS: Procalcitonin < 0.05 ng/mL (<0.5)
[2018-10-21] MEDS: HYDROCODONE/ACET 5/325 TABLET 1 TAB PO ×2 (11:39→17:13)
--- NOTE | 2018-10-21 12:51 | RT ---
Left message with Rachna at [facility] and also with [facility]'s answering service regarding setting up Trilogy for this patient. Arley at the answering service took the patient's name and our RT cell phone # and promised we would receive a call back during business hours on Monday.
--- NOTE | 2018-10-21 13:38 | CM.DANOTE ---
DCP/Assessment: Reviewed chart. Patient is a 57yr old female admitted to [facility] with SOB. PCP listed is Dr. Lin. Primary payor is 1)[facility] 2)Medicaid. COAL WHEELER reviewed chart. Patient recently discharged from [facility] (within the last 30dys) with HH arranged through [facility]. Met with patient explained CM/SW role. Patient remembers COAL WHEELER from last visit. Patient reports that she uses walker at baseline to ambulate and has home 02. Patient confirms that she is currently on HH through [facility]. Patient reports that she is unsure that HH is enough. Patient resides with daughter/Jessica, children, and significant other/Hermelindo. Patient reports that HH nurse sent her to hospital because during HH visit, patient was found to be very SOB. Patient with h/o COPD/CHF and diabetes. Patient reports that she has been told that she needs to live healthier lifestyle and lost weight. Patient does not seem to understand her disease process and consequences of no activity and poor diet. Patient denies any PCP follow up since last admit to [facility] Patient reports that she has been to the hospital a lot this year. Patient reports that although she resides with her daughter and significant other she does not feel that she gets the physical support that she needs. Patient very agreeable to SNF for continued rehab. First choice is [facility]. PT/OT evaluations pending. Will attempt to get SNF placement for patient. However, previous attempts with patient's insurance has led to her going home with HH. P: CM team to attempt SNF placement. COAL WHEELER faxed to [facility], [facility], and [facility] today. LISSETT Del Toro Discharge Planning/Care Management CM Discharge Assessment Start: 10/21/18 13:31 Freq: Status: Active Protocol: Document 10/21/18 13:32 KJS (Rec: 10/21/18 13:38 KJS [id number]) Discharge Planning Assessment Assigned Suit Maker LISSETT Del Toro Contact Information Jessica (daughter) [phone] Advance Directives? No History Provided By Patient Medical Record Has Patient been admitted in last 30 Yes days? Prior Living Arrangements Mobile home Household Members significant other family children Type of transporation used prior to Relies on Others admit Independent with ADL's No Is patient alert and oriented? Yes Needs Assistance With [employer]al [employer] Home Chores / Shopping Caregiver for Another Yes: Family Community Services used prior to Oxygen Therapy admission: Physical Therapy Occupational Therapy Home Health Aid Home Health Nurse Comment Patient currently reports that she is on service with [facility] Already Rented / Owned FWW / Walker Comment Patient on home 02 at baseline Patient/Family Preference Longterm Facility Comment Patient and medical team requesting SNF for continued rehabilation when patient medically stable. PT/OT evalutions currently pending to determine need. Discharge Plan Longterm Facility Community Services Oxygen Therapy Comment Patient currently on service with [facility]. Therapy evaluations pending to determine if SNF recommended for rehabilitation. Patient wants to go to SNF for short amount of time. First choice is [facility] (been there before). Whiteboard Updated in Patient Room with Yes name and ext. # of Suit Maker Review Status In Process Next Review Type Continued Stay Review
--- NOTE | 2018-10-21 14:54 | RT ---
Spoke to Rachna Thornton at [facility] about setting up Trilogy for this patient. Faxed her the facesheet, progress notes, and patient insurance info to begin process.
[2018-10-21] MEDS: INSULIN ASPART 100 UNIT/ML INSULN PEN SUBCUT (16:57)
[2018-10-21] MEDS: INSULIN ASPART 100 UNIT/ML INSULN PEN 10 UNIT SUBCUT (16:57)
[2018-10-21] MEDS: guaiFENesin ER 600 MG TAB 1200 MG PO (20:32)
[2018-10-21] MEDS: SENNOSIDES 8.6 MG TABLET 17.2 MG PO (20:32)
[2018-10-21] MEDS: levETIRAcetam 250 MG TABLET 500 MG PO (20:32)
[2018-10-21] MEDS: FLUCONAZOLE 150 MG TABLET PO (20:33)
[2018-10-21] MEDS: HYDRALAZINE 25 MG TABLET PO (20:33)
[2018-10-21] MEDS: NYSTATIN POWDER 30 GM 1 APPLIC TOP (20:33)
[2018-10-21] MEDS: CARVEDILOL 25 MG TABLET PO (20:36)
[2018-10-21] MEDS: INSULIN GLARGINE 100 UNIT/ML 3ML PEN 15 UNIT SUBCUT (20:38)
[2018-10-22] VITALS (18 sets, daily range): BP systolic 132–163; BP diastolic 78–94; PULSE 72–91; RESP 16–22; TEMP 36.3–36.9; O2SAT 91–97
[2018-10-22] MEDS: HYDROCODONE/ACET 5/325 TABLET 1 TAB PO ×4 (01:26→20:37)
[2018-10-22] MEDS: ALBUTEROL/IPRATROPIUM 3 ML AMPUL INH ×6 (04:56→22:07)
[2018-10-22] MEDS: ACETAMINOPHEN 325 MG TABLET 650 MG PO ×3 (05:25→20:37)
[2018-10-22 05:59] LABS: Alanine Aminotransferase 16 IU/L (9-52); Albumin 3.9 g/dL (3.5-5.0); Albumin Globulin Ratio 1.1 (1.0-2.8); Alkaline Phosphatase 76 U/L (38-126); Aspartate Aminotransferase 16 IU/L (14-36); BUN Creatinine Ratio 53.8 (6-22); Bilirubin Total 0.3 mg/dL (0.2-1.3); Blood Urea Nitrogen 43 mg/dL (7-17); Calcium 11.4 mg/dL (8.4-10.2); Carbon Dioxide 29 mmol/L (22-32); Chloride 112 mmol/L (98-107); Estimated Glomerular Filt Rate > 60.0 mL/min (>60); Globulin 3.6 g/dL (1.7-4.1); Glucose 128 mg/dL (70-100); HEMOLYSIS < 15 (0-50); Potassium 3.7 mmol/L (3.4-5.1); Sodium 149 mmol/L (137-145); Total Protein 7.5 g/dL (6.3-8.2)
[2018-10-22 06:11] LABS: Hematocrit 31.5 % (36-46); Mean Corpuscular HGB Conc 31.8 % (30-36); Mean Corpuscular Hemoglobin 25.2 PG (26-34); Mean Corpuscular Volume 79.3 fL (80-100); Platelet Count 415 X10^3/uL (150-400); Red Blood Cell Count 3.98 X10^6/uL (4.0-5.2); Red Cell Distribution Width 17.5 % (11.6-14.8); White Blood Cell Count 19.8 X10^3/uL (4.5-11.0)
[2018-10-22 06:13] LABS: Procalcitonin < 0.05 ng/mL (<0.5)
[2018-10-22 06:14] LABS: Add Manual Diff / Slide Review YES
[2018-10-22 06:19] LABS: Microcytosis 1+; Neutrophils Absolute Manual 16236 /uL (3000-5900); Total Cells Counted 100
[2018-10-22] MEDS: CYCLOBENZAPRINE 5 MG TABLET PO (07:48)
[2018-10-22] MEDS: CEFTRIAXONE 2 GM/50 ML FROZ.PIGGY IV (07:48)
[2018-10-22] MEDS: NYSTATIN OINTMENT 15 APPLIC/TUBE OINT...G. TOP ×3 (07:49→22:55)
[2018-10-22] MEDS: NYSTATIN POWDER 30 GM 1 APPLIC TOP ×2 (07:49→22:54)
[2018-10-22] MEDS: SODIUM CHLORIDE 0.9% FLUSH 10 ML IV (07:50)
[2018-10-22] MEDS: AMLODIPINE 5 MG TABLET 10 MG PO (08:07)
[2018-10-22] MEDS: FUROSEMIDE 20 MG TABLET PO (08:08)
[2018-10-22] MEDS: CARVEDILOL 25 MG TABLET PO ×2 (08:08→21:18)
[2018-10-22] MEDS: HYDRALAZINE 25 MG TABLET PO ×3 (08:08→21:21)
[2018-10-22] MEDS: guaiFENesin ER 600 MG TAB 1200 MG PO ×2 (08:08→21:18)
[2018-10-22] MEDS: POTASSIUM CHLORIDE 10 MEQ TAB PO (08:09)
[2018-10-22] MEDS: levETIRAcetam 250 MG TABLET 500 MG PO ×2 (08:09→21:21)
[2018-10-22] MEDS: HEPARIN 5,000 UNIT/ML VIAL 5000 UNIT SUBCUT ×2 (08:10→21:18)
[2018-10-22] MEDS: LOSARTAN 50 MG TABLET 100 MG PO (08:10)
[2018-10-22] MEDS: SODIUM CHLORIDE 0.45% 1,000 ML 100 ML IV ×2 (08:16→22:56)
--- NOTE | 2018-10-22 10:42 | DI.ECHO.S_ITS ---
[place] [facility]---------+ [facility] +---------+ : : [phone] : : : : [id number] : : : : Phone: [phone]+ Echocardiogram Report + + :Name: GWEN MARKS Study Date: 10/23/2018 Height: 62 in : :[facility] Exam Location: [facility] Weight: 253 lb : : Gender: Female BSA: 2.1 m2 : :: 1960 Age: 57 yrs BP: 166/89 mmHg: :Reason For Study: Vegetations/ MRSA bacteremia : :Ordering Physician: Keli : :Hospitalist Performed By: Mague Page : :Referring: TORY WELSH : + + Interpretation Summary A limited echocardiogram was performed to assess for any possible vegetations. The study quality was technically difficult. All the valves were not well visualized however no obvious vegetation seen. Consider CHER if clinically suspect endocarditis. Procedure: A two-dimensional transthoracic echocardiogram with color flow and Doppler was performed in limited views only. The study quality was technically difficult. Comparison is made with the echocardiogram of 09/08/2018. The patient was in normal sinus rhythm during the exam. Left Ventricle: The left ventricle is grossly normal in size and function. Mitral Valve: The mitral valve is grossly normal. There is no obvious vegetation seen on the mitral valve. Aortic Valve: The aortic valve is grossly normal. The aortic valve opens well. The aortic valve is slightly calcified. There is discrete nodular thickening of the non- coronary cusp. There is no obvious aortic valvular vegetation. No aortic regurgitation is present. Tricuspid Valve: The tricuspid valve is not well visualized. There is trace tricuspid regurgitation. Pulmonic Valve: The pulmonic valve is not well visualized. There is trace pulmonic regurgitation. Doppler Measurements & Calculations TR max shelbi: 303.7 cm/sec TR max P.9 mmHg Reading Physician:SAMAN
[2018-10-22] MEDS: FLUoxetine 20 MG CAPSULE PO (10:59)
[2018-10-22] MEDS: CEFEPIME 1 GM in SODIUM CHLORIDE 0.9% 100 ML 200 ML IV (11:00)
--- NOTE | 2018-10-22 11:00 | PT.IIE ---
Current Diagnoses Acute and chronic respiratory failure with hypoxia (10/20/18) Surgical History (Last Reviewed 10/20/18 @ 20:13 by ALVARADO Alcala) Status post cholecystectomy (Acute) Status post appendectomy (Acute) Medical History (Last Reviewed 10/21/18 @ 13:59 by Navid Jessica, RT) History of congestive heart failure (Acute) Chronic respiratory failure (Acute) Hypoxia (Acute) Meningioma (Acute) Diabetes (Acute) Morbidly obese (Acute) COPD (chronic obstructive pulmonary disease) (Acute) Hypertension (Acute) Physical Therapy Inpatient Evaluation/Re-Eval M2 PT-IP Current Condition Start: 10/22/18 08:34 Freq: NEEDED Status: Active Protocol: Document 10/22/18 11:00 RS (Rec: 10/22/18 12:56 RS [id number]) Physical Therapy Current Condition Current Condition Evaluation Date 10/22/18 Treatment Diagnosis acute resp failure - impaired mobility Onset Date 10/20/18 M3 PT-IP Subjective Start: 10/22/18 08:34 Freq: NEEDED Status: Active Protocol: Document 10/22/18 11:00 RS (Rec: 10/22/18 12:56 RS [id number]) Subjective Physical Therapy Visit Type Type Initial Evaluation Visit Start Time 10:30 Visit Stop Time 11:00 Total Visit Minutes 30 Physical Therapy Visit Comments Patient Comments Pt reports being SOB at rest and very tired/weak. Patient Goals go to rehab Therapy Pain Assessment Pain When Pain Assessed At Rest Pain Present Pain Present Denied Pain M4 PT-IP Mobility and Gait Start: 10/22/18 08:34 Freq: NEEDED Status: Active Protocol: Document 10/22/18 11:00 RS (Rec: 10/22/18 12:56 RS [id number]) PT-Bed Mobility Assessment Rolling Type of Rolling Bilateral Level of Assist Moderate Assistance Supine to Sit Supine to Sit Moderate Assistance Sit to Supine Sit to Supine Moderate Assistance PT-Transfer Assessment Comments Mobility Comments only bed mobility performed due to fatigue and SOB with exertion. Per nursing staff pt has transferred with FWW and 1PA but hasn't walked. Gait Assessment Comments Gait Comments not tested due to SOB and fatigue Stair Climbing Assessment Comments Stair Climbing Comments not tested PT-Balance Assessment Sitting Balance and Reactions Static Sitting Balance Ability Good Dynamic Sitting Balance Ability Fair M5 PT-IP Objective Assessments Start: 10/22/18 08:34 Freq: NEEDED Status: Active Protocol: Document 10/22/18 11:00 RS (Rec: 10/22/18 12:56 RS [id number]) Gross Range of Motion Upper Extremity ROM Assessment Within Functional Limits Lower Extremity ROM Assessment Within Functional Limits Strength Comments Strength Comments BLE grossly 3/5 M6 PT-IP Treatment Start: 10/22/18 08:34 Freq: NEEDED Status: Active Protocol: Document 10/22/18 11:00 RS (Rec: 10/22/18 12:56 RS [id number]) Physical Therapy Treatment Education Education Provided Safety M7 PT-IP Assessment and Plan Start: 10/22/18 08:34 Freq: NEEDED Status: Active Protocol: Document 10/22/18 11:00 RS (Rec: 10/22/18 12:56 RS [id number]) PT Summary Assessment and Plan Potential Rehabilitation Potential Good Status of Condition at Evaluation Evolving Summary Impairments Strength Balance Bed Mobility Transfers Gait Activity Tolerance Assessment Summary Pt presents with signficantly decreased strength and endurance, which in combination with SOB/resp failure, results in impaired mobility. Pt currently needing up to mod A for limited mobility screen which is far below pt's reported functional baseline (prior to this recent decline). Patient does have potential for functional improvement. Pt is not safe to return to home environment at this time and would greatly benefit from ongoing skilled acute therapies with transition to SNF rehab once medically ready. Goals Bed Mobility Goal Contact Guard Assistance Transfer Goal Contact Guard Assistance Front Wheeled Walker Four Wheeled Walker Gait Goal Contact Guard Assistance Front Wheel Walker Four Wheel Walker Gait Distance 50 Days to Meet Goals 5 Frequency of Treatment Frequency Of Treatment Once a Day Treatment Plan Physical Therapy Treatment Plan Bed Mobility Training Transfer Training Gait Training Therapeutic Exercise Balance Retraining Post Op Education Discharge Planning Hot or Cold Pack Neuromuscular Re-ed Coordination Retraining Manual Therapy Recommendations To Nursing Amount of Assist Needed 1 Person Assist Discharge Recommendations PT Discharge Recommendations SNF Rehab
--- NOTE | 2018-10-22 12:33 | OT.IP.TRT ---
Current Diagnoses Acute and chronic respiratory failure with hypoxia (10/20/18) Occupational Therapy Treatment Note M3 OT- IP Subjective and Pain Start: 10/22/18 12:32 Freq: Status: Active Protocol: Document 10/22/18 12:32 [facility] (Rec: 10/22/18 12:33 [facility] [id number]) OT- Subjective Occupational Therapy Visit Type Type Patient Refusal Notes Pt states too tired and to be getting a scan later and therefore refusing OT eval at this time.
--- NOTE | 2018-10-22 12:39 | DI.CT.S_ITS ---
PROCEDURE: CT ABDOMEN PELVIS W CON INDICATIONS: infection, MRSA bacteremia TECHNIQUE: After the administration of intravenous contrast, 5 mm thick sections acquired from the diaphragm to the symphysis. 5 mm coronal and sagittal reformats were acquired. For radiation dose reduction, the following was used: automated exposure control, adjustment of mA and/or kV according to patient size. COMPARISON: [facility], CT, ABDOMEN/PELVIS WITH CONTRAST, 07/01/2011, 22:35. [facility], CT, ABDOMEN/PELVIS WITH CONTRAST, 08/17/2010, 18:58. FINDINGS: Image quality: Excellent. ABDOMEN: Lung bases: Lung bases are abnormal with dense consolidation at the medial posterior left lower lobe in a pattern suggestive of pneumonia rather than simple atelectasis. There is a small right pleural effusion, water in density and simple in character. Mild adjacent proportionate atelectasis is present.. Heart size is normal. Solid organs: Liver is normal in size and enhancement. Gallbladder appears surgically resected. Biliary system is non dilated. Pancreas enhances normally. Spleen is normal in size and enhancement. No adrenal nodules. Kidneys demonstrate normal size and enhancement, without hydronephrosis. Peritoneum and bowel: Bowel loops demonstrate normal wall thickness and caliber. No free fluid or air. Nodes and vessels: No retroperitoneal or mesenteric adenopathy by size criteria. Aorta and inferior vena cava are normal in size. Miscellaneous: No ventral hernias. PELVIS: Genitourinary: Bladder wall thickness is normal. Multiple uterine fibroids appear present, one of which centrally is calcified and peripherally demonstrates additional calcification. A Argueta catheter is present within the bladder lumen. Miscellaneous: No inguinal hernias or adenopathy. Bones: No suspicious bony lesions. No vertebral body compression fractures. IMPRESSION: 1. Left lower lobe pneumonia pattern. Scant right effusion, with adjacent proportionate atelectasis. 2. Prior cholecystectomy. No biliary distention found, no evidence of urinary tract stone or infection. 3. Argueta catheter empties the bladder lumen. Scattered uterine fibroids, one of which is densely calcified. Dictated by: Xander Hopkins M.D. on 10/22/2018 at 15:08 Approved by: Xnader Hopkins M.D. on 10/22/2018 at 15:11
--- NOTE | 2018-10-22 15:40 | PM.PN.1 ---
Subjective Date Patient Seen: 10/22/18 Interval history: Rocío Enriquez is a 57-year-old female with a past medical history significant for hypertension, diabetes mellitus type 2, insulin using, COPD with chronic respiratory failure on 2 L of oxygen, morbid obesity, meningioma who presented for shortness of breath. The patient is lying in bed comfortably. She is signifcantly more rhonchorus today. She has tendency not to comply to treatment plan or be as paticipatory as needed. She reports she uses the acapella often but per staff not as often as directed. She continually resists walking or sitting in bedside chair. Plan for NT suction and CPT today. She continues to report back and body aches. She denies headache, shortness of breath, abdominal pain, nausea, vomiting, fever, chills, dysuria, diarrhea or constipation. She is voiding via bassett catheter and this will be removed tomorrow. She is up ambulating minimally and requiring a significant amount of assistance. Continued discussion of [facility] prognosis and discussion regarding her steady decline over the last several months and inability to care for herself at home. Continue PT, OT and ST. Exam Vital Signs (past 8 hours): - 10/22/18 09:52 10/22/18 11:41 10/22/18 12:00 Pulse Rate 81 78 Respiratory Rate 16 16 Blood Pressure 145/78 H Pulse Oximetry 92 93 97 10/22/18 13:24 10/22/18 16:00 10/22/18 16:48 Pulse Rate 85 85 Respiratory Rate 16 22 20 Blood Pressure 163/88 H Pulse Oximetry 93 97 96 10/22/18 17:00 Pulse Rate 85 Respiratory Rate Blood Pressure 163/88 H Pulse Oximetry Fraction of Inspired Oxygen 28 Oxygen Delivery Method Nasal Cannula Oxygen Flow Rate 2 Narrative Exam Narrative: General: Middle aged female sitting in bed comfortably, in no acute distress, appears significantly older than stated age, mildly disheveled, well-developed, well-nourished, emotionally labile but otherwise appropriately interactive. HEENT: Normocephalic, atraumatic. External ears without defect. Pupils equal, round, and reactive to light. Anicteric sclerae, moist conjunctivae, and no lid lag. No oral exudates or thrush. Neck: Supple with full range of motion. No JVD. No lymphadenopathy or thyromegaly. Cardiovascular: Regular rate and rhythm without murmurs, rubs, or gallops appreciated. Pulmonary: Diminished throughout with upper airway coarse rhonchi and scattered in all lung ramirez with occasional wheeze. No crackle. Normal respiratory effort with no use of accessory muscles. Abdomen: Soft, obese, bowel sounds present, nontender, nondistended. No hepatosplenomegaly or masses appreciated. Extremities: No clubbing, cyanosis, or edema. Skin: Normal temperature, turgor, and texture; severe Alexandra intertrigo in skin folds especially under breasts. No ulcers or subcutaneous nodules appreciated. Neurological: Cranial nerves grossly intact. Significantly debilitated with generalized weakness. Psychiatric: Depressed mood and flat affect. Emotional lability. Alert and oriented to person, place, and time. Objective Labs Result Diagrams: 10/22/18 05:24 10/22/18 19:50 Labs: Laboratory Results - last 24 hr 10/22/18 10/22/18 10/22/18 05:24 05:24 05:24 WBC 19.8 H RBC 3.98 L Hgb 10.0 L Hct 31.5 L MCV 79.3 L MCH 25.2 L MCHC 31.8 RDW 17.5 H Plt Count 415 H Neut % (Auto) Not Reportable Lymph % (Auto) Not Reportable [place] % (Auto) Not Reportable Eos % (Auto) Not Reportable Baso % (Auto) Not Reportable Lymph # (Auto) Not Reportable [place] # (Auto) Not Reportable Baso # (Auto) Not Reportable Total Counted 100 Seg Neutrophils % 74.0 H Band Neutrophils % 8.0 H Lymphocytes % (Manual) 15.0 L Monocytes % (Manual) 3.0 Neutrophils # (Manual) 93223 H RBC Morphology See below Microcytosis 1+ H Sodium 149 H Potassium 3.7 Chloride 112 H Carbon Dioxide 29 BUN 43 H Creatinine 0.80 Estimated GFR > 60.0 BUN/Creatinine Ratio 53.8 H Glucose 128 H Calcium 11.4 H Magnesium 2.0 Total Bilirubin 0.3 AST 16 ALT 16 Alkaline Phosphatase 76 Total Protein 7.5 Albumin 3.9 Globulin 3.6 Albumin/Globulin Ratio 1.1 Procalcitonin < 0.05 Assessment & Plan Assessment & Plan narrative: Rocío Enriquez is a 57-year-old female with a past medical history significant for hypertension, diabetes mellitus type 2, insulin using, COPD with chronic respiratory failure on 2 L of oxygen, morbid obesity, meningioma who presented for shortness of breath. 1. Acute on chronic hypoxemic respiratory failure, present on admission. Acute portion resolved. -Acute portion suspected to be in the setting of viral infection with rhinovirus. Chronic portion likely secondary to morbid obesity, OHS, and MEGAN. -Patient presented with shortness of breath. -Patient is on 2.5 L of continuous supplemental oxygen chronically. Initially required 3-3.5 L of supplemental oxygen but now back to baseline oxygen requirement. -Continue respiratory therapy evaluation treatment. Continue DuoNebs every 4 hours while awake and albuterol nebs every 2 hours as needed for shortness of breath. -Ordered bedside spirometry to assess if patient meets requirements for BiPAP/trilogy, pending. Of note, patient reports previous study performed at [facility] during previous admission demonstrated sleep apnea. 2. Acute viral pneumonia with possible superimposed aspiration pneumonia, present on admission. Active. -Respiratory viral PCR positive for rhinovirus. -Continue respiratory therapy evaluation treatment. Ordered NT suctioning and CPT. Continue Acapella to be performed with nebulizers and 10 times every 1 hour. Continue duo nebs every 4 hours while awake and albuterol nebs every 2 hours as needed for shortness of breath. Ordered spirometry as patient likely would be candidate for trilogy. -Continue Mucinex 1200 mg twice daily to thin mucous secretions and Sudafed 60 mg twice daily to decrease congestion. -Chest x-ray interpreted by [facility] demonstrated small bilateral pleural effusion and chronic lung changes without focal consolidation or infiltrate. CT chest demonstrated left lower lobe infiltrate suspicious for aspiration pneumonia. -Continue cefepime 2 g IV every 12 hours as below. 3. Acute urinary tract infection, present on admission. Active. -History of recurrent UTIs, at least 3 since Apr 2018. Prior urine culture grew Klebsiella and Proteus sp. Known MDR to ampicillin. -Urine culture grew morganella morganii sensitive to oxacillin but highly resitant (fluroquinolones, tetracyclines, aminoglycosides. Changed ceftriaxone 2 g IV daily to cefepime 2 g every 12 hours as morganella can become resistant to ceftriaxone per infectious disease. 4. Recent positive blood cultures with MRSA. -Patient was prescribed 10 day course doxycycline for pneumonia by ED on 10/10. -Blood cultures x2 have no growth after 24 hours. -Increasing leukocytosis likely secondary to glucocorticoid administration and possibly uncontained infection. Procalcitonin is negative <0.05. Discussed case with ID at [facility] who resommedned continue cefepime as above, repeat blood cultures, CT chest, abdomen and pelvis with contrast to look for infection. CT chest, abdomen and pelvis demonstrated left lower lobe pneumonia otherwise no other obvious infection. Recommended echocardiogram to assess for endocarditis and may need CHER. Will hold off on starting vancomycin and if leukocytosis continues to increase and/or blood cultures result positive or she has increasing signs of infection will start vancomycin. 5. Alexandra intertrigo, acute on chronic, present on admission. Active. -Continue fluconazole 150 mg x3 doses -Continue nystatin ointment and cream applied to area twice daily. 6. Acute kidney injury, present on admission. Resolved. -Initial creatinine 2.0. Baseline 0.6-0.9 mg/dL. -Continue IV fluid. -Avoid nephrotoxic agents if possible. Optimize renal perfusion. 7. Diastolic congestive heart failure, chronic, present on admission. Stable. -Previous echocardiogram 09/08/18 demonstrated normal LV size and function with EF 60-65%, no significant valvular abnormalities, and unobtainable diastolic assessment due to body habitus. -Continue home Lasix 40 mg twice daily, carvedilol 25 mg twice daily and losartan 100 mg daily. Continue potassium chloride 10 mEq daily. -Continue strict I&O and daily weights. 8. Hypertension, chronic, present on admission. Stable. -Continue carvedilol 25 mg twice daily, amlodipine 10 mg daily, and losartan 100 mg daily. 9. Diabetes mellitus type 2, insulin using, chronic, present on admission. Stable. -Hemoglobin A1cn 6.2% indicative of tight control. -Started Lantus 15 units daily at bedtime and prandial Novolog 10 units 3 times daily with meals. -Continue [facility] glucose checks and low dose correctional scale insulin. 10. Meningioma, chronic, present on admission. Stable. -Presumably stable and not related to current symptoms. Neurosurgical outpatient evaluation is in process. -Continue Keppra 500 mg twice daily for seizure prophylaxis. 11. Morbid obesity, present on admission. Stable. -BMI 45.2 -Discussed lifestyle modification in detail including: Diet and exercise (unrealistic for patient to perform much exercise due to physical debility/generalized weakness). 12. Probable situational vs major depression, present on admission. Active. -Patient has very little motivation. She has been hospitalized repeatedly since the beginning of the year which is likely a driving factor in situation vs major depression. -Patient hesitant/adversion (due to previous experience with her ex on antidepressant) but now willing to take an antidepressant. Ordered fluoxetine 20 mg daily as this antidepressant has a stimulating affect. Recommended counseling, specifically cognitive behavioral therapy. 13. Microcytic hypochronic anemia, chronic, present on admission. Stable. -Initial Hgb 9.4 with MCV 79.9. No overt signs of bleeding and blood counts stable. -Held ferrous sulfate and Vit C while patient has an acute infection. -Continue to monitor blood counts closely. Disposition: Patient likely to discharge to [facility] facility in several days once her breathing is optimized.
[2018-10-22] MEDS: ALBUTEROL 2.5 MG/3 ML NEB (ADULT) INH (19:52)
[2018-10-22 20:07] LABS: BUN Creatinine Ratio 48.3 (6-22); Blood Urea Nitrogen 29 mg/dL (7-17); Carbon Dioxide 29 mmol/L (22-32); Chloride 107 mmol/L (98-107); Estimated Glomerular Filt Rate > 60.0 mL/min (>60); Glucose 185 mg/dL (70-100); HEMOLYSIS < 15 (0-50); Potassium 3.9 mmol/L (3.4-5.1); Sodium 145 mmol/L (137-145)
--- NOTE | 2018-10-22 20:29 | P.PN_ITS ---
Subjective Date Patient Seen: 10/22/18 Interval history: Rocío Enriquez is a 57-year-old female with a past medical history significant for hypertension, diabetes mellitus type 2, insulin using, COPD with chronic respiratory failure on 2 L of oxygen, morbid obesity, meningioma who presented for shortness of breath. The patient is lying in bed comfortably. She is signifcantly more rhonchorus today. She has tendency not to comply to treatment plan or be as paticipatory as needed. She reports she uses the acapella often but per staff not as often as directed. She continually resists walking or sitting in bedside chair. Plan for NT suction and CPT today. She continues to report back and body aches. She denies headache, shortness of breath, abdominal pain, nausea, vomiting, fever, chills, dysuria, diarrhea or constipation. She is voiding via bassett catheter and this will be removed tomorrow. She is up ambulating minimally and requiring a significant amount of assistance. Continued discussion of snf prognosis and discussion regarding her steady decline over the last several months and inability to care for herself at home. Continue PT, OT and ST. Exam Vital Signs (past 8 hours): - 10/22/18 09:52 10/22/18 11:41 10/22/18 12:00 Pulse Rate 81 78 Respiratory Rate 16 16 Blood Pressure 145/78 H Pulse Oximetry 92 93 97 10/22/18 13:24 10/22/18 16:00 10/22/18 16:48 Pulse Rate 85 85 Respiratory Rate 16 22 20 Blood Pressure 163/88 H Pulse Oximetry 93 97 96 10/22/18 17:00 Pulse Rate 85 Respiratory Rate Blood Pressure 163/88 H Pulse Oximetry Fraction of Inspired Oxygen 28 Oxygen Delivery Method Nasal Cannula Oxygen Flow Rate 2 Narrative Exam Narrative: General: Middle aged female sitting in bed comfortably, in no acute distress, appears significantly older than stated age, mildly disheveled, well-developed, well-nourished, emotionally labile but otherwise appropriately interactive. HEENT: Normocephalic, atraumatic. External ears without defect. Pupils equal, round, and reactive to light. Anicteric sclerae, moist conjunctivae, and no lid lag. No oral exudates or thrush. Neck: Supple with full range of motion. No JVD. No lymphadenopathy or thyromegaly. Cardiovascular: Regular rate and rhythm without murmurs, rubs, or gallops appreciated. Pulmonary: Diminished throughout with upper airway coarse rhonchi and scattered in all lung ramirez with occasional wheeze. No crackle. Normal respiratory effort with no use of accessory muscles. Abdomen: Soft, obese, bowel sounds present, nontender, nondistended. No hepatosplenomegaly or masses appreciated. Extremities: No clubbing, cyanosis, or edema. Skin: Normal temperature, turgor, and texture; severe Alexandra intertrigo in skin folds especially under breasts. No ulcers or subcutaneous nodules appreciated. Neurological: Cranial nerves grossly intact. Significantly debilitated with generalized weakness. Psychiatric: Depressed mood and flat affect. Emotional lability. Alert and oriented to person, place, and time. Objective Labs Result Diagrams: 10/22/18 05:24 10/22/18 19:50 Labs: Laboratory Results - last 24 hr 10/22/18 10/22/18 10/22/18 05:24 05:24 05:24 WBC 19.8 H RBC 3.98 L Hgb 10.0 L Hct 31.5 L MCV 79.3 L MCH 25.2 L MCHC 31.8 RDW 17.5 H Plt Count 415 H Neut % (Auto) Not Reportable Lymph % (Auto) Not Reportable [place] % (Auto) Not Reportable Eos % (Auto) Not Reportable Baso % (Auto) Not Reportable Lymph # (Auto) Not Reportable [place] # (Auto) Not Reportable Baso # (Auto) Not Reportable Total Counted 100 Seg Neutrophils % 74.0 H Band Neutrophils % 8.0 H Lymphocytes % (Manual) 15.0 L Monocytes % (Manual) 3.0 Neutrophils # (Manual) 44031 H RBC Morphology See below Microcytosis 1+ H Sodium 149 H Potassium 3.7 Chloride 112 H Carbon Dioxide 29 BUN 43 H Creatinine 0.80 Estimated GFR > 60.0 BUN/Creatinine Ratio 53.8 H Glucose 128 H Calcium 11.4 H Magnesium 2.0 Total Bilirubin 0.3 AST 16 ALT 16 Alkaline Phosphatase 76 Total Protein 7.5 Albumin 3.9 Globulin 3.6 Albumin/Globulin Ratio 1.1 Procalcitonin < 0.05 Assessment & Plan Assessment & Plan narrative: Rocío Enriquez is a 57-year-old female with a past medical history significant for hypertension, diabetes mellitus type 2, insulin using, COPD with chronic respiratory failure on 2 L of oxygen, morbid obesity, meningioma who presented for shortness of breath. 1. Acute on chronic hypoxemic respiratory failure, present on admission. Acute portion resolved. -Acute portion suspected to be in the setting of viral infection with rhinovirus. Chronic portion likely secondary to morbid obesity, OHS, and MEGAN. -Patient presented with shortness of breath. -Patient is on 2.5 L of continuous supplemental oxygen chronically. Initially required 3-3.5 L of supplemental oxygen but now back to baseline oxygen requirement. -Continue respiratory therapy evaluation treatment. Continue DuoNebs every 4 hours while awake and albuterol nebs every 2 hours as needed for shortness of breath. -Ordered bedside spirometry to assess if patient meets requirements for BiPAP/trilogy, pending. Of note, patient reports previous study performed at [facility] during previous admission demonstrated sleep apnea. 2. Acute viral pneumonia with possible superimposed aspiration pneumonia, present on admission. Active. -Respiratory viral PCR positive for rhinovirus. -Continue respiratory therapy evaluation treatment. Ordered NT suctioning and C PT. Continue Acapella to be performed with nebulizers and 10 times every 1 hour. Continue duo nebs every 4 hours while awake and albuterol nebs every 2 hours as needed for shortness of breath. Ordered spirometry as patient likely would be candidate for trilogy. -Continue Mucinex 1200 mg twice daily to thin mucous secretions and Sudafed 60 mg twice daily to decrease congestion. -Chest x-ray interpreted by me demonstrated small bilateral pleural effusion and chronic lung changes without focal consolidation or infiltrate. CT chest demonstrated left lower lobe infiltrate suspicious for aspiration pneumonia. -Continue cefepime 2 g IV every 12 hours as below. 3. Acute urinary tract infection, present on admission. Active. -History of recurrent UTIs, at least 3 since Apr 2018. Prior urine culture grew Klebsiella and Proteus sp. Known MDR to ampicillin. -Urine culture grew morganella morganii sensitive to oxacillin but highly resitant (fluroquinolones, tetracyclines, aminoglycosides. Changed ceftriaxone 2 g IV daily to cefepime 2 g every 12 hours as morganella can become resistant t o ceftriaxone per infectious disease. 4. Recent positive blood cultures with MRSA. -Patient was prescribed 10 day course doxycycline for pneumonia by ED on 10/10. -Blood cultures x2 have no growth after 24 hours. -Increasing leukocytosis likely secondary to glucocorticoid administration and possibly uncontained infection. Procalcitonin is negative <0.05. Discussed case with ID at [facility] who resommedned continue cefepime as above, repeat blood cultures, CT chest, abdomen and pelvis with contrast to look for infection. CT chest, abdomen and pelvis demonstrated left lower lobe pneumonia otherwise no other obvious infection. Recommended echocardiogram to assess for endocarditis and may need CHER. Will hold off on starting vancomycin and if leukocytosis continues to increase and/or blood cultures result positive or she has increasing signs of infection will start vancomycin. 5. Alexandra intertrigo, acute on chronic, present on admission. Active. -Continue fluconazole 150 mg x3 doses -Continue nystatin ointment and cream applied to area twice daily. 6. Acute kidney injury, present on admission. Resolved. -Initial creatinine 2.0. Baseline 0.6-0.9 mg/dL. -Continue IV fluid. -Avoid nephrotoxic agents if possible. Optimize renal perfusion. 7. Diastolic congestive heart failure, chronic, present on admission. Stable. -Previous echocardiogram 09/08/18 demonstrated normal LV size and function with EF 60-65%, no significant valvular abnormalities, and unobtainable diastolic assessment due to body habitus. -Continue home Lasix 40 mg twice daily, carvedilol 25 mg twice daily and losart an 100 mg daily. Continue potassium chloride 10 mEq daily. -Continue strict I&O and daily weights. 8. Hypertension, chronic, present on admission. Stable. -Continue carvedilol 25 mg twice daily, amlodipine 10 mg daily, and losartan 100 mg daily. 9. Diabetes mellitus type 2, insulin using, chronic, present on admission. Stable. -Hemoglobin A1cn 6.2% indicative of tight control. -Started Lantus 15 units daily at bedtime and prandial Novolog 10 units 3 times daily with meals. -Continue [facility] glucose checks and low dose correctional scale insulin. 10. Meningioma, chronic, present on admission. Stable. -Presumably stable and not related to current symptoms. Neurosurgical outpatient evaluation is in process. -Continue Keppra 500 mg twice daily for seizure prophylaxis. 11. Morbid obesity, present on admission. Stable. -BMI 45.2 -Discussed lifestyle modification in detail including: Diet and exercise (unrealistic for patient to perform much exercise due to physical debility/gen eralized weakness). 12. Probable situational vs major depression, present on admission. Active. -Patient has very little motivation. She has been hospitalized repeatedly since the beginning of the year which is likely a driving factor in situation vs major depression. -Patient hesitant/adversion (due to previous experience with her ex on antidepressant) but now willing to take an antidepressant. Ordered fluoxetine 20 mg daily as this antidepressant has a stimulating affect. Recommended counseling, specifically cognitive behavioral therapy. 13. Microcytic hypochronic anemia, chronic, present on admission. Stable. -Initial Hgb 9.4 with MCV 79.9. No overt signs of bleeding and blood counts stable. -Held ferrous sulfate and Vit C while patient has an acute infection. -Continue to monitor blood counts closely. Disposition: Patient likely to discharge to [facility] in several days once her breathing is optimized.
[2018-10-22] MEDS: CEFEPIME 2 GM in SODIUM CHLORIDE 0.9% 100 ML 200 ML IV (21:17)
[2018-10-22] MEDS: FLUCONAZOLE 150 MG TABLET PO (21:18)
[2018-10-22] MEDS: SENNOSIDES 8.6 MG TABLET 17.2 MG PO (21:22)
[2018-10-22] MEDS: INSULIN GLARGINE 100 UNIT/ML 3ML PEN 15 UNIT SUBCUT (21:25)
--- NOTE | 2018-10-22 23:47 | PC.NURSE ---
Evening notes: Dr Walker in room around 1545 to talk with patient about diagnosis & plan, ordered for patient to mobilize, have RT do NT suction & percussion. Patient then transferred to recliner with 2 max assist. Anterior lung sounds are coarse, posterior bases are diminished. RT in room to suction & treat. Since then patient able to bring up more phlegm & using yankauer suction independently. Intermittent coarse barking cough, 2L O2 sat 95% tonight, pt does c/o SOB with any exertion but did tolerate sitting in recliner. IV to RAC positional, pump beeping distal occlusion often. I took off IV drsg and found cannula pulled 1/2 out of AC, IV leaking blood at insertion site. Drsg removed, after cleaning site & repositioning cannula I was able then to flush slowly with NS and restart patient's IV pump. I discussed patient's lack of venous access & difficulty with AC IV, she said she would put in order for PICC line. tube dispatcher Valentina notified of order for PICC line, Valentina said that if current IV infiltrates she would then call [facility], otherwise the DI nurse can place PICC tomorrow. Sat up in recliner until around 2130 when transfered back into bed. Chester reports back pain 9/10, also c/o chest pain from all this coughing. Medicated her with 1 tab [place] & 2 Tylenol as ordered. Pt refused bed bath tonight & said Marcie (OT?) said she was going to help me with that in the morning. Words of comfort & support offered to patient as she is occasionally anxious about situation. Son here earlier, he cut Rocío's toe nails. He left shortly after saying he himself did not feel well. Pt remains on droplet iso tonight, fall precautions in place & alarm active for safety.
[2018-10-23] VITALS (14 sets, daily range): BP systolic 132–160; BP diastolic 74–99; PULSE 72–88; RESP 18–22; TEMP 36.3–36.8; O2SAT 85–98
[2018-10-23] MEDS: HYDROCODONE/ACET 5/325 TABLET 1 TAB PO ×3 (02:00→23:45)
[2018-10-23] MEDS: ALBUTEROL/IPRATROPIUM 3 ML AMPUL INH ×5 (05:03→23:11)
[2018-10-23 05:48] LABS: Hematocrit 30.6 % (36-46); Hemoglobin 9.5 g/dL (12.0-16.0); Mean Corpuscular HGB Conc 31.2 % (30-36); Mean Corpuscular Volume 80.2 fL (80-100); Platelet Count 366 X10^3/uL (150-400); Red Blood Cell Count 3.81 X10^6/uL (4.0-5.2); Red Cell Distribution Width 17.2 % (11.6-14.8); White Blood Cell Count 15.3 X10^3/uL (4.5-11.0)
[2018-10-23 05:59] LABS: Alanine Aminotransferase 30 IU/L (9-52); Albumin 3.8 g/dL (3.5-5.0); Albumin Globulin Ratio 1.1 (1.0-2.8); Alkaline Phosphatase 76 U/L (38-126); Aspartate Aminotransferase 22 IU/L (14-36); Bilirubin Total 0.3 mg/dL (0.2-1.3); Blood Urea Nitrogen 24 mg/dL (7-17); Calcium 11.1 mg/dL (8.4-10.2); Carbon Dioxide 29 mmol/L (22-32); Chloride 108 mmol/L (98-107); Estimated Glomerular Filt Rate > 60.0 mL/min (>60); Globulin 3.6 g/dL (1.7-4.1); Glucose 116 mg/dL (70-100); HEMOLYSIS < 15 (0-50); Magnesium 1.9 mg/dL (1.6-2.3); Potassium 3.7 mmol/L (3.4-5.1); Sodium 146 mmol/L (137-145); Total Protein 7.4 g/dL (6.3-8.2)
[2018-10-23 06:01] LABS: Add Manual Diff / Slide Review YES
[2018-10-23 06:36] LABS: Procalcitonin < 0.05 ng/mL (<0.5)
[2018-10-23 06:38] LABS: Neutrophils Absolute Manual 9792 /uL (3000-5900); Total Cells Counted 100
[2018-10-23 06:40] LABS: Anisocytosis 1+
[2018-10-23] MEDS: SODIUM CHLORIDE 0.45% 1,000 ML 100 ML IV (08:03)
[2018-10-23] MEDS: HYDRALAZINE 25 MG TABLET PO ×3 (08:26→19:59)
[2018-10-23] MEDS: NYSTATIN OINTMENT 15 APPLIC/TUBE OINT...G. TOP ×3 (08:26→21:27)
[2018-10-23] MEDS: LOSARTAN 50 MG TABLET 100 MG PO (08:26)
[2018-10-23] MEDS: levETIRAcetam 250 MG TABLET 500 MG PO ×2 (08:27→21:23)
[2018-10-23] MEDS: CARVEDILOL 25 MG TABLET PO ×2 (08:27→19:56)
[2018-10-23] MEDS: guaiFENesin ER 600 MG TAB 1200 MG PO ×2 (08:27→21:26)
[2018-10-23] MEDS: AMLODIPINE 5 MG TABLET 10 MG PO (08:27)
[2018-10-23] MEDS: FUROSEMIDE 20 MG TABLET PO (08:27)
[2018-10-23] MEDS: FLUoxetine 20 MG CAPSULE PO (08:27)
[2018-10-23] MEDS: CEFEPIME 2 GM in SODIUM CHLORIDE 0.9% 100 ML 200 ML IV ×2 (08:27→19:57)
[2018-10-23] MEDS: POTASSIUM CHLORIDE 10 MEQ TAB PO (08:28)
[2018-10-23] MEDS: INSULIN ASPART 100 UNIT/ML INSULN PEN 10 UNIT SUBCUT ×2 (08:28→11:55)
[2018-10-23] MEDS: HEPARIN 5,000 UNIT/ML VIAL 5000 UNIT SUBCUT ×2 (08:29→19:59)
[2018-10-23] MEDS: PSEUDOEPHEDRINE 30 MG TABLET 60 MG PO (08:42)
--- NOTE | 2018-10-23 11:45 | PT.IPTN ---
Current Diagnoses Acute and chronic respiratory failure with hypoxia (10/20/18) Physical Therapy Treatment Note M2 PT-IP Current Condition Start: 10/22/18 08:34 Freq: NEEDED Status: Active Protocol: Document 10/22/18 11:00 RS (Rec: 10/22/18 12:56 RS [id number]) Physical Therapy Current Condition Current Condition Evaluation Date 10/22/18 Treatment Diagnosis acute resp failure - impaired mobility Onset Date 10/20/18 M3 PT-IP Subjective Start: 10/22/18 08:34 Freq: NEEDED Status: Active Protocol: Document 10/23/18 11:44 IJS (Rec: 10/23/18 11:44 IJS [id number]) Subjective Physical Therapy Visit Type Notes Up with nursing assist this morning and back to bed. Will check on patient in the p.m. M4 PT-IP Mobility and Gait Start: 10/22/18 08:34 Freq: NEEDED Status: Active Protocol: Document 10/22/18 11:00 RS (Rec: 10/22/18 12:56 RS [id number]) PT-Bed Mobility Assessment Rolling Type of Rolling Bilateral Level of Assist Moderate Assistance Supine to Sit Supine to Sit Moderate Assistance Sit to Supine Sit to Supine Moderate Assistance PT-Transfer Assessment Comments Mobility Comments only bed mobility performed due to fatigue and SOB with exertion. Per nursing staff pt has transferred with FWW and 1PA but hasn't walked. Gait Assessment Comments Gait Comments not tested due to SOB and fatigue Stair Climbing Assessment Comments Stair Climbing Comments not tested PT-Balance Assessment Sitting Balance and Reactions Static Sitting Balance Ability Good Dynamic Sitting Balance Ability Fair M5 PT-IP Objective Assessments Start: 10/22/18 08:34 Freq: NEEDED Status: Active Protocol: Document 10/22/18 11:00 RS (Rec: 10/22/18 12:56 RS [id number]) Gross Range of Motion Upper Extremity ROM Assessment Within Functional Limits Lower Extremity ROM Assessment Within Functional Limits Strength Comments Strength Comments BLE grossly 3/5 M6 PT-IP Treatment Start: 10/22/18 08:34 Freq: NEEDED Status: Active Protocol: Document 10/22/18 11:00 RS (Rec: 10/22/18 12:56 RS [id number]) Physical Therapy Treatment Education Education Provided Safety M7 PT-IP Assessment and Plan Start: 10/22/18 08:34 Freq: NEEDED Status: Active Protocol: Document 10/22/18 11:00 RS (Rec: 10/22/18 12:56 RS [id number]) PT Summary Assessment and Plan Potential Rehabilitation Potential Good Status of Condition at Evaluation Evolving Summary Impairments Strength Balance Bed Mobility Transfers Gait Activity Tolerance Assessment Summary Pt presents with signficantly decreased strength and endurance, which in combination with SOB/resp failure, results in impaired mobility. Pt currently needing up to mod A for limited mobility screen which is far below pt's reported functional baseline (prior to this recent decline). Patient does have potential for functional improvement. Pt is not safe to return to home environment at this time and would greatly benefit from ongoing skilled acute therapies with transition to SNF rehab once medically ready. Goals Bed Mobility Goal Contact Guard Assistance Transfer Goal Contact Guard Assistance Front Wheeled Walker Four Wheeled Walker Gait Goal Contact Guard Assistance Front Wheel Walker Four Wheel Walker Gait Distance 50 Days to Meet Goals 5 Frequency of Treatment Frequency Of Treatment Once a Day Treatment Plan Physical Therapy Treatment Plan Bed Mobility Training Transfer Training Gait Training Therapeutic Exercise Balance Retraining Post Op Education Discharge Planning Hot or Cold Pack Neuromuscular Re-ed Coordination Retraining Manual Therapy Recommendations To Nursing Amount of Assist Needed 1 Person Assist Discharge Recommendations PT Discharge Recommendations SNF Rehab
--- NOTE | 2018-10-23 11:50 | PT.IPTN ---
Current Diagnoses Acute and chronic respiratory failure with hypoxia (10/20/18) Physical Therapy Treatment Note M2 PT-IP Current Condition Start: 10/22/18 08:34 Freq: NEEDED Status: Active Protocol: Document 10/22/18 11:00 RS (Rec: 10/22/18 12:56 RS [id number]) Physical Therapy Current Condition Current Condition Evaluation Date 10/22/18 Treatment Diagnosis acute resp failure - impaired mobility Onset Date 10/20/18 M3 PT-IP Subjective Start: 10/22/18 08:34 Freq: NEEDED Status: Active Protocol: Document 10/23/18 11:44 IJS (Rec: 10/23/18 11:44 IJS [id number]) Subjective Physical Therapy Visit Type Notes Up with nursing assist this morning and back to bed. Will check on patient in the p.m. M4 PT-IP Mobility and Gait Start: 10/22/18 08:34 Freq: NEEDED Status: Active Protocol: Document 10/22/18 11:00 RS (Rec: 10/22/18 12:56 RS [id number]) PT-Bed Mobility Assessment Rolling Type of Rolling Bilateral Level of Assist Moderate Assistance Supine to Sit Supine to Sit Moderate Assistance Sit to Supine Sit to Supine Moderate Assistance PT-Transfer Assessment Comments Mobility Comments only bed mobility performed due to fatigue and SOB with exertion. Per nursing staff pt has transferred with FWW and 1PA but hasn't walked. Gait Assessment Comments Gait Comments not tested due to SOB and fatigue Stair Climbing Assessment Comments Stair Climbing Comments not tested PT-Balance Assessment Sitting Balance and Reactions Static Sitting Balance Ability Good Dynamic Sitting Balance Ability Fair M5 PT-IP Objective Assessments Start: 10/22/18 08:34 Freq: NEEDED Status: Active Protocol: Document 10/22/18 11:00 RS (Rec: 10/22/18 12:56 RS [id number]) Gross Range of Motion Upper Extremity ROM Assessment Within Functional Limits Lower Extremity ROM Assessment Within Functional Limits Strength Comments Strength Comments BLE grossly 3/5 M6 PT-IP Treatment Start: 10/22/18 08:34 Freq: NEEDED Status: Active Protocol: Document 10/22/18 11:00 RS (Rec: 10/22/18 12:56 RS [id number]) Physical Therapy Treatment Education Education Provided Safety M7 PT-IP Assessment and Plan Start: 10/22/18 08:34 Freq: NEEDED Status: Active Protocol: Document 10/22/18 11:00 RS (Rec: 10/22/18 12:56 RS [id number]) PT Summary Assessment and Plan Potential Rehabilitation Potential Good Status of Condition at Evaluation Evolving Summary Impairments Strength Balance Bed Mobility Transfers Gait Activity Tolerance Assessment Summary Pt presents with signficantly decreased strength and endurance, which in combination with SOB/resp failure, results in impaired mobility. Pt currently needing up to mod A for limited mobility screen which is far below pt's reported functional baseline (prior to this recent decline). Patient does have potential for functional improvement. Pt is not safe to return to home environment at this time and would greatly benefit from ongoing skilled acute therapies with transition to SNF rehab once medically ready. Goals Bed Mobility Goal Contact Guard Assistance Transfer Goal Contact Guard Assistance Front Wheeled Walker Four Wheeled Walker Gait Goal Contact Guard Assistance Front Wheel Walker Four Wheel Walker Gait Distance 50 Days to Meet Goals 5 Frequency of Treatment Frequency Of Treatment Once a Day Treatment Plan Physical Therapy Treatment Plan Bed Mobility Training Transfer Training Gait Training Therapeutic Exercise Balance Retraining Post Op Education Discharge Planning Hot or Cold Pack Neuromuscular Re-ed Coordination Retraining Manual Therapy Recommendations To Nursing Amount of Assist Needed 1 Person Assist Discharge Recommendations PT Discharge Recommendations SNF Rehab
[2018-10-23] MEDS: NYSTATIN POWDER 30 GM 1 APPLIC TOP ×2 (11:54→21:26)
--- NOTE | 2018-10-23 13:12 | PC.NURSE ---
Addendum entered by Radha Johnson R.N. 10/23/18 14:42: RESP/ - persistent coughing after RT tmt, given lozenge, pt wanted up oob to chair, prior to trsf, bassett balloon deflated and dc'd w/o difficulty, up to dangle position and waited until 02 recovered to 93% after mid 80's w/exhertion, stood and tsf to chair. Original Note: AM NOTE - alert, open mouth breathing with congested cough, sob at rest and w/exhertion, rhonchi throughout, some upper airway wheezes, 2+ pedal edema, assisted to dangle position, some initial dizziness, resolved and then x 2 person up w/fww to chair for breakfast, 2l 92%, RT in this am, echo completed this am, PICC placed, later cleaned and washed under breasts and groin areas at skin folds, small opening under l breast, nystatin and used pillow cases to separate moist skin folds.
--- NOTE | 2018-10-23 13:24 | DI.RAD.S_ITS ---
PROCEDURE: XR CHEST FOR PICC 1V INDICATIONS: PICC PLACEMENT COMPARISON: [facility], CR, XR CHEST 1V, 10/20/2018, 12:41. [facility], CR, XR CHEST 1V, 10/10/2018, 12:20. FINDINGS: PICC was placed by the intravenous therapy team from the left side. Fluoroscopic spot film demonstrates tip of PICC in the distal SVC. IMPRESSION: Tip of PICC lies within the distal SVC. Note is also made of cardiomegaly and congestive heart failure, moderate in severity. Dictated by: Xander Hopkins M.D. on 10/23/2018 at 14:20 Approved by: Xander Hopkins M.D. on 10/23/2018 at 14:20
[2018-10-23] MEDS: BENZOCAINE/MENTHOL 1 LOZ PKT 1 EACH PO (14:26)
--- NOTE | 2018-10-23 14:32 | PM.PN.1 ---
Subjective Date Patient Seen: 10/23/18 Time Patient Seen: 14:33 Interval history: Follow-up on UTI, rhino virus . Patient seen at bedside. She states she is feeling much better today although not back to her baseline. She says she has a bit of back spasms and would like some Flexeril. No acute overnight events. Afebrile. Leukocytosis improving on cefepime. Exam Vital Signs (past 8 hours): - 10/23/18 07:44 10/23/18 10:00 10/23/18 10:03 Temperature 98.3 F Pulse Rate 86 88 Respiratory Rate 22 18 Blood Pressure 158/86 H Pulse Oximetry 95 91 85 L 10/23/18 11:51 10/23/18 14:06 Temperature 97.7 F Pulse Rate 77 79 Respiratory Rate 18 20 Blood Pressure 149/79 H Pulse Oximetry 94 93 Fraction of Inspired Oxygen 28 Oxygen Delivery Method Nasal Cannula Oxygen Flow Rate 2 Narrative Exam Narrative: General: No acute distress, A/O x3. HEENT: Normocephalic, atraumatic. Pupils equal, round, and reactive to light. Anicteric sclerae, moist conjunctivae. No oral exudates or thrush. Neck: Supple with full range of motion. No JVD. No lymphadenopathy or thyromegaly. Cardiovascular: Regular rate and rhythm without murmurs, rubs, or gallops appreciated. Pulmonary: Diminished airways. No wheezing/crackles. Normal respiratory effort with no use of accessory muscles. Abdomen: Soft, obese, bowel sounds present, nontender, nondistended. No hepatosplenomegaly or masses appreciated. Extremities: No clubbing, cyanosis, or edema. Skin: Normal temperature, turgor, and texture; severe Alexandra intertrigo in skin folds especially under breasts. No ulcers or subcutaneous nodules appreciated. Neurological: Cranial nerves grossly intact. Significantly debilitated with generalized weakness. Psychiatric: Improving mood and affect. Alert and oriented to person, place, and time. Objective Labs Result Diagrams: 10/23/18 05:09 10/23/18 05:09 Labs: Laboratory Results - last 24 hr 10/22/18 10/23/18 10/23/18 19:50 05:09 05:09 WBC 15.3 H RBC 3.81 L Hgb 9.5 L Hct 30.6 L MCV 80.2 MCH 25.0 L MCHC 31.2 RDW 17.2 H Plt Count 366 Neut % (Auto) Not Reportable Lymph % (Auto) Not Reportable Aiken % (Auto) Not Reportable Eos % (Auto) Not Reportable Baso % (Auto) Not Reportable Lymph # (Auto) Not Reportable Aiken # (Auto) Not Reportable Baso # (Auto) Not Reportable Total Counted 100 Seg Neutrophils % 58.0 Band Neutrophils % 6.0 Lymphocytes % (Manual) 25.0 Monocytes % (Manual) 6.0 Basophils % (Manual) 1.0 Metamyelocytes % 3.0 H Myelocytes % 1.0 H Neutrophils # (Manual) 9792 H RBC Morphology See below Anisocytosis 1+ H Sodium 145 Potassium 3.9 Chloride 107 Carbon Dioxide 29 BUN 29 H Creatinine 0.60 Estimated GFR > 60.0 BUN/Creatinine Ratio 48.3 H Glucose 185 H Calcium 11.0 H Magnesium Total Bilirubin AST ALT Alkaline Phosphatase Total Protein Albumin Globulin Albumin/Globulin Ratio Procalcitonin < 0.05 10/23/18 05:09 WBC RBC Hgb Hct MCV MCH MCHC RDW Plt Count Neut % (Auto) Lymph % (Auto) Aiken % (Auto) Eos % (Auto) Baso % (Auto) Lymph # (Auto) Aiken # (Auto) Baso # (Auto) Total Counted Seg Neutrophils % Band Neutrophils % Lymphocytes % (Manual) Monocytes % (Manual) Basophils % (Manual) Metamyelocytes % Myelocytes % Neutrophils # (Manual) RBC Morphology Anisocytosis Sodium 146 H Potassium 3.7 Chloride 108 H Carbon Dioxide 29 BUN 24 H Creatinine 0.60 Estimated GFR > 60.0 BUN/Creatinine Ratio 40.0 H Glucose 116 H Calcium 11.1 H Magnesium 1.9 Total Bilirubin 0.3 AST 22 ALT 30 Alkaline Phosphatase 76 Total Protein 7.4 Albumin 3.8 Globulin 3.6 Albumin/Globulin Ratio 1.1 Procalcitonin Assessment & Plan Assessment & Plan narrative: 57-year-old female with a past medical history significant for hypertension, Insulin Dependant diabetes mellitus type 2, COPD with chronic respiratory failure on 2 L of oxygen, morbid obesity, meningioma who presented for shortness of breath. Found to have Rhinovirus infection and UTI. Admitted for further management. 1. Acute on chronic hypoxemic respiratory failure, present on admission, resolved -Likely due to viral infection with rhinovirus. Chronic portion likely secondary to morbid obesity, OHS, and MEGAN. -Patient is back to her baseline 2 L of continuous supplemental oxygen requirement. -Continue DuoNebs every 4 hours while awake and albuterol nebs every 2 hours as needed for shortness of breath. -Pending bedside spirometry to assess if patient meets requirements for BiPAP/trilogy, pending. Of note, patient reports previous study performed at [facility] during previous admission demonstrated sleep apnea. 2. Acute viral pneumonia with possible superimposed aspiration pneumonia, present on admission. Active. -Respiratory viral PCR positive for rhinovirus. -Continue respiratory therapy evaluation treatment. Continue NT suctioning and CPT. Continue Acapella to be performed with nebulizers and 10 times every 1 hour. Continue duo nebs every 4 hours while awake and albuterol nebs every 2 hours as needed for shortness of breath. Ordered spirometry as patient likely would be candidate for trilogy. -Continue Mucinex 1200 mg twice daily to thin mucous secretions and Sudafed 60 mg twice daily to decrease congestion. -Chest x-ray revealed Bilateral pleural effusions probably not significantly changed given differences in imaging technique. There likely is associated atelectasis. No new consolidation. -CT chest demonstrated left lower lobe infiltrate suspicious for aspiration pneumonia. -Continue cefepime 2 g IV every 12 hours 3. Acute urinary tract infection, present on admission, improving -History of recurrent UTIs, at least 3 since Apr 2018. Prior urine culture grew Klebsiella and Proteus sp. Known MDR to ampicillin. -WBC now on the downtrend finally, 15.3 today -Urine culture grew morganella morganii sensitive to oxacillin but highly resitant (fluroquinolones, tetracyclines, aminoglycosides) -CT abd/pelvis without pyelonephritis -Continue Cefepime IV and have patient be discharged to SNF on IV for one week abx duration 4. Recent positive blood cultures with MRSA. -Patient was prescribed 10 day course doxycycline for pneumonia by ED on 10/10. -Blood cultures x2 have no growth after 24 hours. -Increasing leukocytosis likely secondary to glucocorticoid administration and possibly uncontained infection. Procalcitonin is negative <0.05. Discussed case with ID at [facility] who resommedned continue cefepime as above, repeat blood cultures, CT chest, abdomen and pelvis with contrast, Echo. -CT abd/pelvis demonstrated left lower lobe pneumonia otherwise no other obvious infection. -ECHO revealed he study quality was technically difficult. All the valves were not well visualized however no obvious vegetation seen. -Since patient's WBC improving on Cefepime, it is not likely related to Endocarditis. ID recommended for patient to get repeat blood cultures in 2 weeks and continue to do so [id number] x2. If all negative, no need for further work up and treatment. If however one blood culture comes back positive for MRSA, then patient will need CHER (CHER is not available at this facility) and further treatment. 5. Alexandra intertrigo, acute on chronic, present on admission. Active. -Continue fluconazole 150 mg x3 doses -Continue nystatin ointment and cream applied to area twice daily. 6. Acute kidney injury, present on admission. Resolved. -Initial creatinine 2.0. Baseline 0.6-0.9 mg/dL. -Will stop IVF as patient is hydrating well -Avoid nephrotoxic agents if possible. Optimize renal perfusion. 7. Diastolic congestive heart failure, chronic, present on admission. Stable. -Previous echocardiogram 09/08/18 demonstrated normal LV size and function with EF 60-65%, no significant valvular abnormalities, and unobtainable diastolic assessment due to body habitus. -Continue home Lasix 40 mg twice daily, carvedilol 25 mg twice daily and losartan 100 mg daily. Continue potassium chloride 10 mEq daily. -Continue strict I&O and daily weights. 8. Hypertension, chronic, present on admission. Stable. -Continue carvedilol 25 mg twice daily, amlodipine 10 mg daily, and losartan 100 mg daily. 9. Diabetes mellitus type 2, insulin using, chronic, present on admission. Stable. -Hemoglobin A1cn 6.2% indicative of tight control. -Started Lantus 15 units daily at bedtime and prandial Novolog 10 units 3 times daily with meals. -Continue [facility] glucose checks and low dose correctional scale insulin. 10. Meningioma, chronic, present on admission. Stable. -Presumably stable and not related to current symptoms. Neurosurgical outpatient evaluation is in process. -Continue Keppra 500 mg twice daily for seizure prophylaxis. 11. Morbid obesity, present on admission. Stable. -BMI 45.2 -Discussed lifestyle modification in detail including: Diet and exercise (unrealistic for patient to perform much exercise due to physical debility/generalized weakness). 12. Probable situational vs major depression, present on admission. Active. -Patient has very little motivation. She has been hospitalized repeatedly since the beginning of the year which is likely a driving factor in situation vs major depression. -Continue fluoxetine 20 mg daily as this antidepressant has a stimulating affect-it seems to be helping patient. Recommended counseling, specifically cognitive behavioral therapy. 13. Microcytic hypochronic anemia, chronic, present on admission. Stable. -Initial Hgb 9.4 with MCV 79.9. No overt signs of bleeding and blood counts stable. -Held ferrous sulfate and Vit C while patient has an acute infection. -Continue to monitor blood counts closely. Disposition: Likely discharge to [facility] within the next 1-2 days
--- NOTE | 2018-10-23 15:15 | PT.IPTN ---
Current Diagnoses Acute and chronic respiratory failure with hypoxia (10/20/18) Physical Therapy Treatment Note M2 PT-IP Current Condition Start: 10/22/18 08:34 Freq: NEEDED Status: Active Protocol: Document 10/22/18 11:00 RS (Rec: 10/22/18 12:56 RS [id number]) Physical Therapy Current Condition Current Condition Evaluation Date 10/22/18 Treatment Diagnosis acute resp failure - impaired mobility Onset Date 10/20/18 M3 PT-IP Subjective Start: 10/22/18 08:34 Freq: NEEDED Status: Active Protocol: Document 10/23/18 15:15 AB (Rec: 10/23/18 16:39 AB [id number]) Subjective Physical Therapy Visit Type Type Treatment Note Visit Start Time 15:15 Visit Stop Time 15:35 Total Visit Minutes 20 Number of BUSINESS SERVICES VICE PRESIDENT Visits 0 Physical Therapy Visit Comments Patient Comments pt agreeable to do PT Therapy Pain Assessment Pain When Pain Assessed During Mobility Pain Present Pain Present Pain Reported Location Back Scale Used pain scale not stated but c/o back pain after ambulation Description Chronic M4 PT-IP Mobility and Gait Start: 10/22/18 08:34 Freq: NEEDED Status: Active Protocol: Document 10/23/18 15:15 AB (Rec: 10/23/18 16:39 AB [id number]) PT-Transfer Assessment Sit to and From Stand Sit to and from Stand Minimal Assistance 1 Person Assistance Use of Upper Extremities Comments Mobility Comments O2 sat at rest: 94% pt completed sit to stand min A and was able to maintain standing ~ 15 sec and pt has to sit down. O2 sat decreased to 93%. Gait Assessment Gait Gait Assistance Required: Minimum Assistance Distance (Feet) 10 Able to Maintain Weight Bearing Status Yes During Gait Assistive Devices Assistive Device Gait Belt Front Wheeled Walker Orthotic/Prosthetic Devices or Brace: No Gait Deviations General Gait Pattern Decreased Stride Length Decreased Feet Clearance Factors Limiting Gait Function Factors Limiting Gait Function Decreased Activity Tolerance Pain Poor Balance Comments Gait Comments pt ambulated using FWW 10 ft min A and cues and chair follow. O2 sat decreased to 86% after ambulation. increased to 90% after a few seconds of seated rest. pt has 2 L/min O2 on. M5 PT-IP Objective Assessments Start: 10/22/18 08:34 Freq: NEEDED Status: Active Protocol: Document 10/22/18 11:00 RS (Rec: 10/22/18 12:56 RS [id number]) Gross Range of Motion Upper Extremity ROM Assessment Within Functional Limits Lower Extremity ROM Assessment Within Functional Limits Strength Comments Strength Comments BLE grossly 3/5 M6 PT-IP Treatment Start: 10/22/18 08:34 Freq: NEEDED Status: Active Protocol: Document 10/22/18 11:00 RS (Rec: 10/22/18 12:56 RS [id number]) Physical Therapy Treatment Education Education Provided Safety M7 PT-IP Assessment and Plan Start: 10/22/18 08:34 Freq: NEEDED Status: Active Protocol: Document 10/23/18 15:15 AB (Rec: 10/23/18 16:39 AB [id number]) PT Summary Assessment and Plan Potential Rehabilitation Potential Fair Summary Impairments Pain ROM Strength Balance Cognition Bed Mobility Transfers Gait Activity Tolerance Progress Towards Goals Slow Progress due to Activity Tolerance Assessment Summary pt requiring min A for ambulation but presents with decrerase activity tolerance with decrease in O2 sat after ambulation. d/c plan depending on progress. pt plans to go home with family to assist her. Goals Bed Mobility Goal Standby Assistance Transfer Goal Standby Assistance Four Wheeled Walker Gait Goal Standby Assistance Four Wheel Walker Gait Distance 30 Days to Meet Goals 10 Frequency of Treatment Frequency Of Treatment Once a Day Treatment Plan Physical Therapy Treatment Plan Bed Mobility Training Transfer Training Gait Training Therapeutic Exercise Balance Retraining Post Op Education Discharge Planning Hot or Cold Pack Neuromuscular Re-ed Coordination Retraining Manual Therapy Recommendations To Nursing Amount of Assist Needed 1 Person Assist Discharge Recommendations PT Discharge Recommendations Home with 24/ Assist Home Health SNF Rehab
--- NOTE | 2018-10-23 17:35 | ST.IPCSEOM ---
Care Team Visit Care Team Role Provider Type H Jesus Lin MD Primary Care Provider Physician Specialty: Medical Address: [address] [place] [address], [place], [address] Email: Char Quiroz DO Emergency Provider Physician Specialty: Emergency Medicine Address: [address] [place] [address], [id number] Email: Jenny Walker DO Admit Provider Physician Attending Provider Specialty: Internal Medicine Address: [address] [place] [address], [id number] Email: Current Diagnoses Acute and chronic respiratory failure with hypoxia (10/20/18) Past Medical History (Last Reviewed 10/21/18 @ 13:59 by Navid Jessica RT) History of congestive heart failure (Acute Medical) Chronic respiratory failure (Acute Medical) Hypoxia (Acute Medical) She is at her baseline hypoxia with 2 L nasal cannula as she takes at home. Meningioma (Acute Medical) This is apparently stable and not related to the current symptoms. Neurosurgical outpatient evaluation is in process. She is on Keppra as a precaution for seizure prevention. Diabetes (Acute Medical) This is a relatively new diagnosis for her. She will be on her usual NPH and Aspart correctional scale. Will need to obtain correct dosing of her medication and start according Morbidly obese (Acute Medical) COPD (chronic obstructive pulmonary disease) (Acute Medical) No current exacerbation. Continue on oxygen. Hypertension (Acute Medical) Continue carvedilol and losartan. Patient is currently amlodipine and will continue this as well. Speech-Language Pathology Swallow Evaluation [facility] Clinical Swallow Evaluation Start: 10/23/18 15:37 Freq: Status: Active Protocol: Document 10/23/18 15:37 LNK (Rec: 10/23/18 16:33 LNK [id number]) Clinical Swallow Evaluation Session Time Visit Start Time 14:30 Visit Stop Time 15:00 Total Visit Minutes 30 Referral Reason for Referral aspiration/dysphagia Setting Assessment Location Acute Care Visit Type Note Type Initial Evaluation Next Note Type Next Note Type Treatment Note Patient Information Identification Type Name ID Wristband History Rocío is a 57-year-old female with a past medical history significant for hypertension, Insulin Dependant diabetes mellitus type 2, COPD with chronic respiratory failure on 2 L of oxygen, morbid obesity, meningioma who presented for shortness of breath. Found to have Rhinovirus infection and UTI. She was admitted with Acute on chronic hypoxemic respiratory failure, present on admission , resolved-Likely due to viral infection with rhinovirus. Chronic portion likely secondary to morbid obesity, OHS, and MEGAN. -Patient is back to her baseline 2 L of continuous supplemental oxygen requirement. Acute viral pneumonia with possible superimposed aspiration pneumonia, present on admission. Active. -Respiratory viral PCR positive for rhinovirus. -Continue Mucinex 1200 mg twice daily to thin mucous secretions and Sudafed 60 mg twice daily to decrease congestion. -Chest x-ray revealed Bilateral pleural effusions probably not significantly changed given differences in imaging technique. There likely is associated atelectasis. No new consolidation. -CT chest demonstrated left lower lobe infiltrate suspicious for aspiration pneumonia. -Pt admitted that at home she was pretty much noncompliant with continuing on nectar thick liquids - her daughter had made thickened liquids 1 or 2 times. Subjective Observations Pt had just been assisted into her bedside evaluation. SOB with shallow, non-productive wet cough. Evaluation Liquids Trialed Crane Administration Type Cup Single Sip Controlled Cup Sip Straw Oral Phase Comments Pt demonstrates oral structures adequate for mastication. No residue observed, structures and function appear to be WFL. Reduced tolerance for PO mastication/intake as pt becomes SOB easily. increased SOB increase the aspiration risk with any pharyngeal pooling. Pharyngeal Impairment Moderately Impaired Pharyngeal Phase Comments Pharyngeal phase of swallow is suspected for pooling and reduced airway protection. During examination, Pt presents with adequate hyolaryngeal elevation; however movement of the hyoid bone difficult to palpate in pt's neck. She appears to swallow; yet aspiration can only be assumed given x-ray report, etc. Direct visualization is needed via MBSS or FEES in order to r/o or confirm aspiration. Wet, nonproductive cough with SOB. Pt frequently coughing short shallow coughs makes it difficult to determine if coughing is due to aspiration or other diagnoses. Findings Dysphagia Type Orophharyngeal dysphagia suspected based on xray, pt presentation, etc. Rehabilitation Potential Fair Diet Recommendations Liquids Order Crane Diet Order Dysphagia Mechanical Medication Recommendations As Tolerated Additional Dietary Needs Encourage to Self-Feed Reminders to Use Strategies Aspiration Precautions Recommended Precautions Upright at 90 Degrees Frequent Rest Periods Small Bites/Sips Double Swallow Supersupraglottic Swallow Liquids from Cup Additional Precautions Pt instructions for suersupraglottic swallow posted on towel dispenser Treatment Plan Placement Recommendations after [facility] Facility Discharge Appropriate for Therapy Yes Therapy Recommendations Instrumental evaluation of swallow function via MBSS or FEES exam Dysphagia Goals Pt will follow steps of supersupraglottic swallow strategy to reduce risk of continued aspiration for ALL swallows of PO intake. GIN FEEDER Follow Up 1-2x while inpatient
--- NOTE | 2018-10-23 17:40 | OT.IP.EVAL ---
Current Diagnoses Acute and chronic respiratory failure with hypoxia (10/20/18) Past Medical History (Last Reviewed 10/21/18 @ 13:59 by Navid Jessica, RT) History of congestive heart failure (Acute) Chronic respiratory failure (Acute) Hypoxia (Acute) Meningioma (Acute) Diabetes (Acute) Morbidly obese (Acute) COPD (chronic obstructive pulmonary disease) (Acute) Hypertension (Acute) Surgical History (Last Reviewed 10/20/18 @ 20:13 by ALVARADO Alcala) Status post cholecystectomy (Acute) Status post appendectomy (Acute) Occupational Therapy Inpatient Evaluation/Re-Eval M2 OT-IP Current Condition Start: 10/22/18 12:32 Freq: Status: Active Protocol: Document 10/23/18 15:10 [facility] (Rec: 10/23/18 17:40 [facility] [id number]) Occupational Therapy Current Condition Current Condition Evaluation Date 10/23/18 Treatment Diagnosis Respiratory Failure, UTI, generalized weakness Post Operative Precautions Other Precautions Use of 2L O2 Weight Bearing Status Weight Bearing Status Weight Bear as Tolerated M3 OT- IP Subjective and Pain Start: 10/22/18 12:32 Freq: Status: Active Protocol: Document 10/23/18 15:10 [facility] (Rec: 10/23/18 17:40 [facility] [id number]) OT- Subjective Occupational Therapy Visit Type Type Initial Evaluation Visit Start Time 15:10 Visit Stop Time 15:45 Total Visit Minutes 35 Occupational Therapy Visit Comments Patient Comments Pt wanting to get stronger and be able to care for herself again. OT Pain Assessment Pain When Pain Assessed At Rest Pain Present Pain Present Denied Pain M4 OT- IP ADL's Start: 10/22/18 12:32 Freq: Status: Active Protocol: Document 10/23/18 15:10 [facility] (Rec: 10/23/18 17:40 [facility] [id number]) OT ADL-Grooming Comments OT Grooming Comments Not completed, pt already did earlier while seated. OT ADL-Dressing General Eval Lower Body Dressing Ability Maximum Assistance Areas Needing Assistance Socks OT ADL-Toileting Comments OT Toileting Comments Encouraged pt to get up and use BSC with staff. Pt needing assist for completeness for hygiene needs. OT ADL-Bathing Comments OT Bathing Comments Not ready at this time for shower due to decreased activity tolerance, better to sponge bath at this time. M5 OT- IP IADL's Start: 10/22/18 12:32 Freq: Status: Active Protocol: Document 10/23/18 15:10 [facility] (Rec: 10/23/18 17:40 [facility] [email or web address]) OT-Instrumental Activities of Daily Living Medication Management Medication Management Caregiver Administers Money Management Money Management Caregiver Provides Assistance Meal Preparation Meal Preparation Caregiver Provides Assist Laborer Tin Can Laborer Tin Can Caregiver Provides Assist M6 OT- IP Functional Cognition Start: 10/22/18 12:32 Freq: Status: Active Protocol: Document 10/23/18 15:10 [facility] (Rec: 10/23/18 17:40 [facility] [email or web address]) Cognitive Factors Limiting Selfcare Function Cognitive Ability Level of Alertness Alert Patient Orientation Name Place Situation Attention Span Ability Capable of Focused Attention Capable of Sustained Attention Ability to Follow Commands Able to Follow One Step Commands Memory Description No Deficits Noted Problem Solving Ability Needs Assist to Identify Solutions Cognitive Comments Cognitive Assessment Comments Pt needs encouragement to participate, cue for safety while reaching back with hands to sit to to help to push up from the recliner. OT- Vision and Hearing OT- Hearing Assessment OT- Hearing Assessment WFL M7 OT- IP Mobility and Balance Start: 10/22/18 12:32 Freq: Status: Active Protocol: Document 10/23/18 15:10 [facility] (Rec: 10/23/18 17:40 [facility] [email or web address]) OT-Transfer Assessment Sit to and From Stand Sit to and from Stand Minimal Assistance Transfers Transfer Ability Minimal Assistance Technique Transfer Destination Chair Transfer Technique Stand Step Pivot Devices Transfer Assistive Devices Gait Belt Front Wheeled Walker Comments Mobility Comments VERO to stand and to help take a few step with FWW, another person to assist to move IV pole. Pt only able to stand form 30 seconds before having to sit down, O2 level dropped to 86% on 2L of O2. OT- Balance Assessment Sitting Balance and Reactions Static Sitting Balance Ability Normal Dynamic Sitting Balance Ability Good Standing Balance and Reactions Static Standing Balance Ability Fair M8 OT- IP Objective Assessments Start: 10/22/18 12:32 Freq: Status: Active Protocol: Document 10/23/18 15:10 [facility] (Rec: 10/23/18 17:40 [facility] [id number]) OT Gross Range of Motion Upper Extremity Range of Motion Assessment Bilaterally Impaired ROM Impairments BUE 0-100. OT Strength Comments Strength Comments BUE strength elbow to distal 4 /5. M9 OT- IP Assessment and Plan Start: 07/01/19 12:32 Freq: Status: Active Protocol: Document 10/23/18 15:10 [facility] (Rec: 10/23/18 17:40 [facility] [email or web address]) OT Summary Assessment and Plan Potential Rehabilitation Potential Fair Analytic Complexity at Evaluation Low Summary OT Impairments Strength Balance Functional Mobility Grooming Dressing Toileting Bathing Toilet Transfers Shower Transfers Progress Towards Goals Slow Progress due to Medical Issues Slow Progress due to Activity Tolerance Slow Progress due to Cognition Assessment Summary Pt low complexity and main barriers are decreased activity tolerance, and needing extensive assist for ADL needs due to deconditioning and decreased activity tolerance. Pt would benefit from skilled rehab to help increase independence with needs for ADl's as currently family having to assist more extensively for needs. Goals Grooming Goal Standby Assistance Dressing Goal Moderate Assistance Toileting Goal Moderate Assistance Bathing Goal Moderate Assistance Toilet Transfer Goal Moderate Assistance Shower Transfer Goal Moderate Assistance Patient/Caregiver Education Goal Demonstrate Energy Conservation and Pacing Caregiver Independent Assisting Patient Days to Meet Goals 7 Frequency of Treatment Frequency Of Treatment Once a Day Treatment Plan OT Treatment Plan ADL Training Functional Cognition Training Functional Mobility Patient/Family Education Discharge Planning Other Treatment Recommendations and Next Standing for grooming needs Treatment Focus able to stand at least for 1 minute several times to complete grooming needs while standing with FWW. Discharge Recommendations OT Discharge Recommendations Home with 24/7 Assist Home Health SNF Rehab Other Discharge Recommendations Pending medical progress skilled rehab versus home with 24/7 assist and home health Home Equipment Needs toilet aid
--- NOTE | 2018-10-23 17:51 | PC.NURSE ---
Addendum entered by Leigh Sheffield R.N. 10/23/18 22:03: Pt had relatively uneventful evening. Lungs remains course w/rhonhi throughout. Assisted to BSC, voide 350cc urine. KAIDEN PICC intact/patent, HL RFA intact/patent. Call light w/in reach, bed alarm on for pt safety. Continue w/plan of care. Original Note: Pt sitiing in chair, Denies discomfort at this time. Lungs present w/course rhonchi throughout all ramirez. SpO2 96% on 2L O2. Tele shows NSR per ICU staff. KAIDEN PICC intact/patent. IVF D/C as per orders. AC CBG = 116, no coverage required, pt refused scheduled 10u stating that she would 'drop to low. will reassess at HS. Call light w/in reach, pt calls appropriately for needs.
[2018-10-23] MEDS: SENNOSIDES 8.6 MG TABLET 17.2 MG PO (21:27)
[2018-10-23] MEDS: SODIUM CHLORIDE 0.9% FLUSH 10 ML IV (21:33)
[2018-10-24] MEDS: ACETAMINOPHEN 325 MG TABLET 650 MG PO (02:37)
[2018-10-24 03:55] VITALS: BP 157/91; PULSE 90; RESP 17; TEMP 36.8; O2SAT 92
[2018-10-24] MEDS: HYDROCODONE/ACET 5/325 TABLET 1 TAB PO ×2 (05:43→11:47)
[2018-10-24 06:11] LABS: Add Manual Diff / Slide Review NO; Basophils Absolute Auto 100 /uL (0-100); Basophils Percent Auto 0.5 % (0-2); Eosinophils Absolute Auto 100 /uL (0-450); Eosinophils Percent Auto 0.9 % (2-4); Hematocrit 29.8 % (36-46); Hemoglobin 9.4 g/dL (12.0-16.0); Lymphocytes Absolute Auto 1600 /uL (1100-4500); Lymphocytes Percent Auto 13.8 % (25-40); Mean Corpuscular HGB Conc 31.6 % (30-36); Mean Corpuscular Hemoglobin 25.1 PG (26-34); Mean Corpuscular Volume 79.4 fL (80-100); Monocytes Absolute Auto 600 /uL (0-900); Monocytes Percent Auto 5.3 % (3-14); Neutrophils Absolute Auto 9000 /uL (1500-7000); Neutrophils Percent Auto 79.5 % (50-75); Platelet Count 307 X10^3/uL (150-400); Red Blood Cell Count 3.75 X10^6/uL (4.0-5.2); Red Cell Distribution Width 17.7 % (11.6-14.8); White Blood Cell Count 11.3 X10^3/uL (4.5-11.0)
[2018-10-24 06:16] LABS: Blood Urea Nitrogen 16 mg/dL (7-17); Calcium 10.8 mg/dL (8.4-10.2); Carbon Dioxide 30 mmol/L (22-32); Chloride 107 mmol/L (98-107); Estimated Glomerular Filt Rate > 60.0 mL/min (>60); Glucose 117 mg/dL (70-100); HEMOLYSIS < 15 (0-50); Potassium 3.5 mmol/L (3.4-5.1); Sodium 144 mmol/L (137-145)
[2018-10-24 07:47] VITALS: BP 161/83; PULSE 87; RESP 18; TEMP 36.7; O2SAT 94
[2018-10-24] MEDS: INSULIN ASPART 100 UNIT/ML INSULN PEN SUBCUT ×2 (08:10→12:05)
[2018-10-24] MEDS: INSULIN ASPART 100 UNIT/ML INSULN PEN 10 UNIT SUBCUT ×2 (08:11→12:04)
[2018-10-24] MEDS: SODIUM CHLORIDE 0.9% FLUSH 10 ML IV ×2 (08:13→10:02)
[2018-10-24] MEDS: CEFEPIME 2 GM in SODIUM CHLORIDE 0.9% 100 ML 200 ML IV (08:13)
[2018-10-24] MEDS: HEPARIN 5,000 UNIT/ML VIAL 5000 UNIT SUBCUT (08:13)
[2018-10-24] MEDS: guaiFENesin ER 600 MG TAB 1200 MG PO (08:14)
[2018-10-24] MEDS: AMLODIPINE 5 MG TABLET 10 MG PO (08:14)
[2018-10-24] MEDS: FUROSEMIDE 20 MG TABLET PO (08:14)
[2018-10-24] MEDS: FLUoxetine 20 MG CAPSULE PO (08:14)
[2018-10-24] MEDS: CARVEDILOL 25 MG TABLET PO (08:14)
[2018-10-24] MEDS: ALBUTEROL/IPRATROPIUM 3 ML AMPUL INH ×2 (08:16→12:04)
[2018-10-24] MEDS: POTASSIUM CHLORIDE 10 MEQ TAB PO (08:18)
[2018-10-24] MEDS: LOSARTAN 50 MG TABLET 100 MG PO (08:18)
[2018-10-24] MEDS: levETIRAcetam 250 MG TABLET 500 MG PO (08:18)
[2018-10-24] MEDS: HYDRALAZINE 25 MG TABLET PO ×2 (08:18→14:59)
[2018-10-24] MEDS: NYSTATIN OINTMENT 15 APPLIC/TUBE OINT...G. TOP (08:29)
[2018-10-24 08:38] VITALS: PULSE 90; RESP 18; O2SAT 95
[2018-10-24 08:40] VITALS: O2SAT 86
--- NOTE | 2018-10-24 10:30 | ST.IPDYTX ---
Care Team Visit Care Team Role Provider Type H Jesus Lin MD Primary Care Provider Physician Specialty: Medical Address: [address] [place] [address], [place], [address] Email: Cahr Quiroz DO Emergency Provider Physician Specialty: Emergency Medicine Address: [address] [place] [address], [id number] Email: Jenny Walker DO Admit Provider Physician Attending Provider Specialty: Internal Medicine Address: [address] [place] [address], [id number] Email: OTOLARYNGOLOGY PHYSICIAN Dysphagia Treatment OTOLARYNGOLOGY PHYSICIAN Dysphagia Treatment Start: 10/23/18 15:37 Freq: Status: Active Protocol: Document 10/24/18 10:13 [facility] (Rec: 10/24/18 10:30 [facility] [email or web address]) Dysphagia Treatment Session Time Visit Start Time 09:00 Visit Stop Time 09:20 Total Visit Minutes 20 Setting Assessment Location Acute Care Visit Type Note Type Treatment Note Next Note Type Next Note Type Treatment Note Patient Information Identification Type Name ID Card Subjective Observations Pt was sitting up in chair with breakfast tray present. Reported minimal appetite and that she had taken 2 bites each of oatmeal, banana and 4 oz NTL juice per Nsg request with medications. She was agreeable to minimal further trials. She c/o being very tired and exhibited wet, weak coughing periodically throughout the session with and without oral intake. Cup of melting ice chips was bedside and removed with verbal education for pt safety . Nsg notified. Treatment Liquids Trialed [place] Solids Trialed Dysphagia Mechanical Administration Type Tea Spoon Straw Self-Feeding Oral Strategies Upright at 90 degrees Lingual Sweep Pharyngeal Strategies Sitting Upright (90 deg) Supraglottic Swallow Small Bites and Sips Treatment Activities Reviewed supraglottic swallow strategies put in place yesterday, with reference to written prompts posted in pt's room. Further education RE purpose of each step was provided. Assessed pt's oral clearance with oatmeal, as she complained yesterday of difficulty clearing oatmeal from between lips and teeth. The pt consumed 2 bites of oatmeal with adequate oral clearance. She employed supraglottic swallow with min verbal prompts during consumption of both oatmeal and 2 sips of NTL via straw. She exhibited weak, wet coughing after 2 of the 4 trials. Difficult to determine if due to penetration/ aspiration or other existing pulmonary condition(s). The pt verbalized understanding of importance of recommended aspiration safety precautions, including NTL and swallow strategies, and reported that thin water had gone down wrong at home, and next thing I know I'm in the hospital with pneumonia. Skilled feedback, education and recommendations were emphasized again, and pt was encouraged to follow strategies and increase consumption for strength to participate in all therapies. She verbalized agreement. Assessment Patient Response to Treatment Good Rehab Potential Fair Assessment of Improvement Improved oral clearance. Minimal appetite. Pt is understands and is able to follow safety precautions. Verbalized understanding of restriction of ice chips, as they melt to thin liquid. She continues to be at risk of aspiration. Without instrumental evaluation, difficult to determine severity and prognosis. Diet Recommendations Recommendations Continue Current Diet Liquids Order [place] Diet Order Dysphagia Mechanical Medication Recommendations As Tolerated Additional Dietary Needs Encourage to Self-Feed Reminders to Use Strategies Aspiration Precautions Recommended Precautions Upright at 90 Degrees Frequent Rest Periods Small Bites/Sips Double Swallow Supersupraglottic Swallow Liquids from Cup Treatment Plan Placement Recommendation after Discharge Fpc Facility Appropriate for Continued Therapy Yes Therapy Recommendations Instrumental evaluation of swallow function via FEES exam as pt is unable to participate in MBSS d/t body mass. Continue tx targeting pt education and use of swallow strategies. Dysphagia Goals Pt will follow steps of supersupraglottic swallow strategy to reduce risk of continued aspiration for ALL swallows of PO intake.
[2018-10-24 11:30] VITALS: BP 141/72; PULSE 78; RESP 16; TEMP 36.5; O2SAT 90
--- NOTE | 2018-10-24 11:31 | PT.IPTN ---
Current Diagnoses Acute and chronic respiratory failure with hypoxia (10/20/18) Physical Therapy Treatment Note M2 PT-IP Current Condition Start: 10/22/18 08:34 Freq: NEEDED Status: Active Protocol: Document 10/22/18 11:00 [facility] (Rec: 10/22/18 12:56 RS [id number]) Physical Therapy Current Condition Current Condition Evaluation Date 10/22/18 Treatment Diagnosis acute resp failure - impaired mobility Onset Date 10/20/18 M3 PT-IP Subjective Start: 10/22/18 08:34 Freq: NEEDED Status: Active Protocol: Document 10/24/18 11:31 AB (Rec: 10/24/18 11:31 AB [id number]) Subjective Physical Therapy Visit Type Type Patient Refusal Notes pt refused PT. stated that she might go to SNF today. will check again later.
--- NOTE | 2018-10-24 11:46 | OT.IP.TRT ---
Current Diagnoses Acute and chronic respiratory failure with hypoxia (10/20/18) Occupational Therapy Treatment Note M2 OT-IP Current Condition Start: 10/22/18 12:32 Freq: Status: Active Protocol: Document 10/23/18 15:10 [facility] (Rec: 10/23/18 17:40 [facility] [email or web address]) Occupational Therapy Current Condition Current Condition Evaluation Date 10/23/18 Treatment Diagnosis Respiratory Failure, UTI, generalized weakness Post Operative Precautions Other Precautions Use of 2L O2 Weight Bearing Status Weight Bearing Status Weight Bear as Tolerated M3 OT- IP Subjective and Pain Start: 10/22/18 12:32 Freq: Status: Active Protocol: Document 10/24/18 11:36 [facility] (Rec: 10/24/18 11:46 [facility] [email or web address]) OT- Subjective Occupational Therapy Visit Type Type Treatment Note Visit Start Time 10:15 Visit Stop Time 10:45 Total Visit Minutes 30 Occupational Therapy Visit Comments Patient Comments Pt needing encouragement , but afterwards agreeable to do grooming at the sink with FWW. OT Pain Assessment Pain When Pain Assessed At Rest Pain Present Pain Present Pain Reported Location generalized Intensity 8 Scale Used Numeric (1 - 10) M4 OT- IP ADL's Start: 10/22/18 12:32 Freq: Status: Active Protocol: Document 10/24/18 11:36 [facility] (Rec: 10/24/18 11:46 [facility] [email or web address]) OT ADL-Grooming General Evaluation Grooming Ability VERO Areas Needing Assistance Retrieving/Set-up of Grooming Items, Pt needing assist to comb hair for completeness as tiring while trying to comb her hair. OT ADL-Oral Care General Eval Oral Care Ability Standby Assistance OT ADL-Dressing General Eval Lower Body Dressing Ability Maximum Assistance Areas Needing Assistance Underpants/Brief Socks Comments OT Dressing Comments MAX A for all LB dressing needs, pt able to initially assist to push down brief over her hips and lift up her legs for brief to be placed. OT ADL-Toileting General Evaluation Toileting Ability Total Assistance Areas Needing Assistance Perform Perineal Hygiene Comments OT Toileting Comments Pt able to stand with FWW with VERO for 90 seconds and transfer to recliner after use of BSC. O2 dropped to 84% but able to recover quickly to 91 % , pt on 2L of O2. OT ADL-Bathing Comments OT Bathing Comments Not ready at this time for shower due to decreased activity tolerance, better to sponge bath at this time. M5 OT- IP IADL's Start: 10/22/18 12:32 Freq: Status: Active Protocol: Document 10/23/18 15:10 [facility] (Rec: 10/23/18 17:40 [facility] [email or web address]) OT-Instrumental Activities of Daily Living Medication Management Medication Management Caregiver Administers Money Management Money Management Caregiver Provides Assistance Meal Preparation Meal Preparation Caregiver Provides Assist Certified Drug Counselor Certified Drug Counselor Caregiver Provides Assist M6 OT- IP Functional Cognition Start: 10/22/18 12:32 Freq: Status: Active Protocol: Document 10/24/18 11:36 [facility] (Rec: 10/24/18 11:46 [facility] [email or web address]) Cognitive Factors Limiting Selfcare Function Cognitive Ability Level of Alertness Alert Patient Orientation Name Place Situation Attention Span Ability Capable of Focused Attention Capable of Sustained Attention Ability to Follow Commands Able to Follow One Step Commands Memory Description No Deficits Noted Problem Solving Ability Needs Assist to Identify Solutions Cognitive Comments Cognitive Assessment Comments Pt needing encouragement to participate in therapy and to focus of positives such as pt able to have a bowel movement today and able to stand for 90 seconds. M7 OT- IP Mobility and Balance Start: 10/22/18 12:32 Freq: Status: Active Protocol: Document 10/24/18 11:36 [facility] (Rec: 10/24/18 11:46 [facility] [email or web address]) OT-Transfer Assessment Sit to and From Stand Sit to and from Stand Contact Guard Assistance Transfers Transfer Ability Minimal Assistance Technique Transfer Destination Bedside Commode Chair Transfer Technique Stand Step Pivot Devices Transfer Assistive Devices Gait Belt Front Wheeled Walker Comments Mobility Comments Able to stand with CGA today with FWW. Pt having to use BSC. OT- Balance Assessment Sitting Balance and Reactions Static Sitting Balance Ability Normal Dynamic Sitting Balance Ability Good Standing Balance and Reactions Static Standing Balance Ability Fair M8 OT- IP Objective Assessments Start: 10/22/18 12:32 Freq: Status: Active Protocol: Document 10/23/18 15:10 [facility] (Rec: 10/23/18 17:40 [facility] [email or web address]) OT Gross Range of Motion Upper Extremity Range of Motion Assessment Bilaterally Impaired ROM Impairments BUE 0-100. OT Strength Comments Strength Comments BUE strength elbow to distal 4 /5. M9 OT- IP Assessment and Plan Start: 10/22/18 12:32 Freq: Status: Active Protocol: Document 10/24/18 11:36 [facility] (Rec: 10/24/18 11:46 [facility] [email or web address]) OT Summary Assessment and Plan Potential Rehabilitation Potential Fair Analytic Complexity at Evaluation Low Summary OT Impairments Strength Balance Functional Mobility Grooming Dressing Toileting Bathing Toilet Transfers Shower Transfers Progress Towards Goals Slow Progress due to Medical Issues Slow Progress due to Activity Tolerance Slow Progress due to Cognition Assessment Summary Pt activity tolerance improved today however still far from baseline and would benefit from skilled rehab prior to going home. Goals Grooming Goal Standby Assistance Dressing Goal Moderate Assistance Toileting Goal Moderate Assistance Bathing Goal Moderate Assistance Toilet Transfer Goal Moderate Assistance Shower Transfer Goal Moderate Assistance Patient/Caregiver Education Goal Demonstrate Energy Conservation and Pacing Caregiver Independent Assisting Patient OT-Other Goals Grooming goal while standing at sink with FWW. Days to Meet Goals 7 Frequency of Treatment Frequency Of Treatment Once a Day Treatment Plan OT Treatment Plan ADL Training Functional Cognition Training Functional Mobility Patient/Family Education Discharge Planning Discharge Recommendations OT Discharge Recommendations SNF Rehab Home Equipment Needs toilet aid
--- NOTE | 2018-10-24 12:45 | PC.NURSE ---
Addendum entered by Danielle Carpenter R.N. 10/24/18 15:36: Report given to Evening ALISHA Salgado at 1520. Spoke with Katherin at [facility] for report and pt update at 1527. Original Note: Day Shift- Pt A&OX4, able to make needs known using call light. Chair alarm in place. Pt emotional, anxious, expressing frustration, not wanting to perform tasks for herself, requiring a lot of assistance. Encouragement and support provided. OOB this AM on end of community relations police lieutenant to chair at bedside. Stayed up in chair throughout breakfast and lunch. Out of chair to [facility] with OT, was able to stand for approx 1.5 minutes while providing cherie-care. Pt's cherie-area excoriated, red and blanchable, does have small skin opening to left nad right inner thigh posteriorly. Barrier cream applied. SUPPORTIVE EMPLOYMENT CASE MANAGER noted pinkness on top of pt's BM. Rosemary +, Dr. Ramos made aware, H&H stable, pt thinks she might have a history of hemorrhoids. Denies pain and discomfort. AE diminished with exp/ins rhonchi heard throughout, coarseness throughout though diminished. O2 2l NC at baseline. Some shortness of breath upon rest at times, encouraged breathing exercises and using acapella tool. Pt has moist intermittent weak cough, yaunker suction X1 with yellow thick sputum production. Pulmonary function test done by RTDr. Ramos made aware of report by RN with this administrative underwriter witnessing.
--- NOTE | 2018-10-24 14:21 | PM.DS.1 ---
History of Present Illness Date Patient Seen: 10/24/18 Time Patient Seen: 14:21 Chief complaint: SOB ext. Narrative: 57-year-old female with PMH significant for chronic respiratory failure w/ hypoxia and O2 dependence (2L at baseline), COPD, HTN, CHF, morbid obesity (BMI 45.8), recurrent UTIs, and meningioma. Patient presented to the ED 10/20/2018 out of concern for shortness of breath. Associated symptoms included chills, cough, wheezing, and dizziness w/ position change. Symptoms noted in the morning on day of admission, progressively worsening. Patient was recently seen in the ED and diagnosed with RUL pneumonia. She was d/c home on a course of doxycycline. Blood cx from that visit 1 of 2 positive for MRSA. Patient Denied change in vision, chest pain, palpitations, abdominal pain, GI distress, nausea and vomiting. Denied exposure to ill contacts. Patient lives with her 13 and 36-year-old daughter. Discharge Providers Date of admission: 10/20/18 17:24 Discharge Date: 10/24/18 Primary care physician: Nato Lin MD Consults: 10/20/18 10:58 Consult to Respiratory Therapy Evaluate & Treat Comment: Physician Instructions: Evaluate and treat 10/20/18 20:51 Consult to Discharge Planning Routine Comment: may need to be d/c to assisted facility 10/20/18 20:52 Consult to Respiratory Therapy Evaluate & Treat Comment: Physician Instructions: Evaluate and treat 10/21/18 13:31 Consult to Occupational Therapy Evaluate & Treat Comment: Physician Instructions: Evaluate and treat Consult to Physical Therapy Evaluate & Treat Comment: Physician Instructions: Evaluate and Treat 10/22/18 17:05 Consult to Speech Therapy Evaluate & Treat Comment: oral pharyngeal strenghtening Physician Instructions: Evaluate and treat Discharge provider: Sally Ramos MD Summary Discharge Diagnosis: Acute on chronic hypoxemic respiratory failure present on admission, resolved Severe COPD, in need of trilogy device Acute viral pneumonia with possible superimposed aspiration pneumonia, present on admission, resolving Acute urinary tract infection, present on admission, improving History positive blood cultures with MRSA, with subsequent blood cultures x2 negative Alexandra intertrigo, status post treatment with fluconazole, improving Acute kidney injury, resolved Diastolic congestive heart failure, chronic Hypertension, chronic, stable Diabetes mellitus type 2, insulin dependent, chronic, stable Meningioma, chronic, stable Morbid obesity, stable Situational versus major depression, stable Microcytic hypochromic anemia, stable Hospital Course: ED presentation and work-up WBC 12.1 HGB 9.4 PLT 370 NA 141 K 3.9 MG 1.9 CL 103 CA 10.4 GLU 134 CO2 23 BUN 90 CR 2.0 GFR 25.8 Trop <0.012 BNP 100 PCT 0.07 Urinalysis... + WBC 30-100 and bacteria > 30 Resp panel: + Entero / Rhino virus Patient was admitted for further management of UTI and Acute on Chronic respiratory failure due to Rhinovirus/Pneumonia 1. Acute on chronic hypoxemic respiratory failure, present on admission, resolved -Likely due to viral infection with rhinovirus vs underlying pneumonia. Chronic portion likely secondary to morbid obesity, OHS, and MEGAN. -Sputum cultures not collected-patient unable to produce any -CT abd/pelvis revealed Left lower lobe pneumonia pattern. Scant right effusion, with adjacent proportionate atelectasis (could be resolving findings from prior pneumonia diagnosed 10/10) -Patient is back to her baseline 2 L of continuous supplemental oxygen requirement -Patient will now need Duonebs PRN Q6H for wheezing/SOB -Continue Cefepime IV until 10/31 through PICC line 2. Severe COPD, present on admission, active -Patient is s/p bedside spirometry revealed: FVC 17% of predicted value, FEV1 18% of predicted value. FVC/FEV1 ratio 87%. -patient requires nocturnal and daytime ventilation. Hime Bipap insufficient due to severity of condition (COPD is the primary cause of CRF/Hypercapnia) 3. Acute viral pneumonia with possible superimposed aspiration pneumonia, present on admission. Active. -Respiratory viral PCR positive for rhinovirus. -Continue respiratory therapy evaluation treatment. Continue NT suctioning and CPT -Continue nebs and acapella PRN -Continue Mucinex 1200 mg twice daily to thin mucous secretions and Sudafed 60 mg twice daily to decrease congestion. -Chest x-ray revealed Bilateral pleural effusions probably not significantly changed given differences in imaging technique. There likely is associated atelectasis. No new consolidation. -CT chest demonstrated left lower lobe infiltrate suspicious for aspiration pneumonia. -Continue cefepime 2 g IV every 12 hours until 10/31 4. Acute urinary tract infection, present on admission, improving -History of recurrent UTIs, at least 3 since Apr 2018. Prior urine culture grew Klebsiella and Proteus sp. Known MDR to ampicillin. -WBC now on the downtrend finally, 15.3 today -Urine culture grew morganella morganii sensitive to oxacillin but highly resitant (fluroquinolones, tetracyclines, aminoglycosides) -CT abd/pelvis without pyelonephritis -Continue Cefepime IV and have patient be discharged to SNF on IV antibiotics until 10/31 5. Recent positive blood cultures with MRSA. -Patient was prescribed 10 day course doxycycline for pneumonia by ED on 10/10. -Blood cultures x2 have no growth after 24 hours. -WBC initially went up however now downtrending on Cefepime. Procalcitonin is negative <0.05. Discussed case with ID at [facility] who resommedned continue cefepime as above, repeat blood cultures, CT chest, abdomen and pelvis with contrast, Echo. -CT abd/pelvis demonstrated left lower lobe pneumonia otherwise no other obvious infection. -ECHO revealed he study quality was technically difficult. All the valves were not well visualized however no obvious vegetation seen. -Since patient's WBC improving on Cefepime, it is not likely related to Endocarditis. ID recommended for patient to get repeat blood cultures in 2 weeks and continue to do so M2lzcod x2. If all negative, no need for further work up and treatment. If however one blood culture comes back positive for MRSA, then patient will need CHER (CHER is not available at this facility) and further treatment. 6. Alexandra intertrigo, acute on chronic, present on admission. Active. -Finished Flucanazole therapy -Continue nystatin ointment and cream applied to area twice daily. 7. Acute kidney injury, present on admission. Resolved. -Initial creatinine 2.0. Baseline 0.6-0.9 mg/dL. -s/p IVF hydration -Avoid nephrotoxic agents if possible. Optimize renal perfusion. 8. Diastolic congestive heart failure, chronic, present on admission. Stable. -Previous echocardiogram 09/08/18 demonstrated normal LV size and function with EF 60-65%, no significant valvular abnormalities, and unobtainable diastolic assessment due to body habitus. -Continue home Lasix 40 mg twice daily, carvedilol 25 mg twice daily and losartan 100 mg daily. Continue potassium chloride 10 mEq daily. 9. Hypertension, chronic, present on admission. Stable. -Continue carvedilol 25 mg twice daily, amlodipine 10 mg daily, and losartan 100 mg daily. 10. Diabetes mellitus type 2, insulin using, chronic, present on admission. Stable. -Hemoglobin A1cn 6.2% indicative of tight control. -Started Lantus 15 units daily at bedtime and prandial Novolog 10 units 3 times daily with meals. -Continue ACHS glucose checks and low dose correctional scale insulin. 11. Meningioma, chronic, present on admission. Stable. -Presumably stable and not related to current symptoms. Neurosurgical outpatient evaluation is in process. -Continue Keppra 500 mg twice daily for seizure prophylaxis. 12. Morbid obesity, present on admission. Stable. -BMI 45.2 -Discussed lifestyle modification in detail including: Diet and exercise (unrealistic for patient to perform much exercise due to physical debility/generalized weakness). 13. Probable situational vs major depression, present on admission. Active. -Patient has very little motivation. She has been hospitalized repeatedly since the beginning of the year which is likely a driving factor in situation vs major depression. -Continue fluoxetine 20 mg daily as this antidepressant has a stimulating affect-it seems to be helping patient. Recommended counseling, specifically cognitive behavioral therapy. 14. Microcytic hypochronic anemia, chronic, present on admission. Stable. -Initial Hgb 9.4 with MCV 79.9. No overt signs of bleeding and blood counts stable. -Held ferrous sulfate and Vit C while patient has an acute infection, but will resume on discharge Disposition: Discharge to [facility] with continuation of IV Cefepime until 10/31. Patient needs Trillogy machine. Will need repeat blood cultures on 11/05 and 11/19. If any of those cultures positive, patient will need to get CHER for Endocarditis rule out. Exam Vital Signs (past 8 hours): - 10/24/18 07:47 10/24/18 08:38 10/24/18 08:40 Temperature 98.1 F Pulse Rate 87 90 Respiratory Rate 18 18 Blood Pressure 161/83 H Pulse Oximetry 94 95 86 L 10/24/18 11:30 Temperature 97.7 F Pulse Rate 78 Respiratory Rate 16 Blood Pressure 141/72 H Pulse Oximetry 90 L Fraction of Inspired Oxygen 28 Oxygen Delivery Method Room Air Oxygen Flow Rate 2 Narrative Exam Narrative: General: No acute distress, A/O x3. HEENT: Normocephalic, atraumatic. Pupils equal, round, and reactive to light. Anicteric sclerae, moist conjunctivae. No oral exudates or thrush. Neck: Supple with full range of motion. No JVD. No lymphadenopathy or thyromegaly. Cardiovascular: Regular rate and rhythm without murmurs, rubs, or gallops appreciated. Pulmonary: Diminished airways. No wheezing/crackles. Normal respiratory effort with no use of accessory muscles. Abdomen: Soft, obese, bowel sounds present, nontender, nondistended. No hepatosplenomegaly or masses appreciated. Extremities: No clubbing, cyanosis, or edema. Skin: Normal temperature, turgor, and texture; severe Alexandra intertrigo in skin folds especially under breasts. No ulcers or subcutaneous nodules appreciated. Neurological: Cranial nerves grossly intact. Significantly debilitated with generalized weakness. Psychiatric: Improving mood and affect. Alert and oriented to person, place, and time. Objective Labs Result Diagrams: 10/24/18 05:34 10/24/18 05:34 Labs: Laboratory Results - last 24 hr 10/24/18 10/24/18 05:34 05:34 WBC 11.3 H RBC 3.75 L Hgb 9.4 L Hct 29.8 L MCV 79.4 L MCH 25.1 L MCHC 31.6 RDW 17.7 H Plt Count 307 Neut % (Auto) 79.5 H Lymph % (Auto) 13.8 L [place] % (Auto) 5.3 Eos % (Auto) 0.9 L Baso % (Auto) 0.5 Neut # (Auto) 9000 H Lymph # (Auto) 1600 [place] # (Auto) 600 Eos # (Auto) 100 Baso # (Auto) 100 Sodium 144 Potassium 3.5 Chloride 107 Carbon Dioxide 30 BUN 16 Creatinine 0.50 L Estimated GFR > 60.0 BUN/Creatinine Ratio 32.0 H Glucose 117 H Calcium 10.8 H Discharge Plan Discharge Plan Discharge Problem: Acute UTI, Acute and chronic respiratory failure Patient Disposition: SNF Transfer to: [facility] Transportation: [facility] Labs: blood cultures x2 on 11/05 and 11/19 I certify the postop hospital assisted care is medically necessary on a continuing basis for any conditions for which he/ she received care during this hospitalization.: Yes The receiving facility has agreed to accept transfer and provide medical treatment.: Yes Discharge Med Rec/Prescriptions Prescriptions: New nystatin 100,000 unit/gram Ointment 1 applic topical TID 30 Days Qty: 3 RF: 0 insulin glargine [Lantus Solostar U-100 Insulin] 100 unit/mL (3 mL) Insulin Pen 15 unit subcut BEDTIME 30 Days RF: 0 fluoxetine 20 mg Capsule 20 mg PO DAILY Qty: 30 RF: 0 guaifenesin [Mucus Relief ER] 600 mg Tablet Extended Release 12hr 1,200 mg PO BID Qty: 20 RF: 0 cefepime 2 gram Recon Soln 2 gm IV Q12H 7 Days RF: 0 Continued carvedilol 25 mg Tablet 25 mg PO BID RF: 0 levetiracetam 500 mg tablet 500 mg PO BID RF: 0 hydralazine 25 mg tablet 25 mg PO TID RF: 0 ascorbic acid (vitamin C) [Vitamin C With Shona Hips] 500 mg Tablet 500 mg PO DAILY RF: 0 amlodipine 10 mg tablet 10 mg PO DAILY RF: 0 nystatin 100,000 unit/gram powder 1 applic topical [id number] RF: 0 losartan 100 mg Tablet 100 mg PO DAILY RF: 0 potassium chloride 10 mEq tablet,ER particles/crystals 10 meq PO DAILY RF: 0 ferrous sulfate 325 mg (65 mg iron) Tablet 325 mg PO DAILY RF: 0 sennosides [senna] 8.6 mg Tablet 17.2 mg PO BEDTIME 30 Days RF: 0 ipratropium-albuterol 0.5 mg-3 mg(2.5 mg base)/3 mL Solution For Nebulization 3 ml INH [id number] 30 Days RF: 0 furosemide 40 mg tablet 20 mg PO DAILY RF: 0 pseudoephedrine HCl [Nasal Decongestant (pseudoeph)] 30 mg tablet 30 mg PO QID RF: 0 insulin lispro [Humalog U-100 Insulin] 100 unit/mL solution 10 units subcut 3-4XD RF: 0 prochlorperazine maleate 10 mg Tablet 10 mg TID RF: 0 Discontinued doxycycline hyclate 100 mg tablet 100 mg PO BID Qty: 20 RF: 0 Follow up/Referrals: Nato Lin MD [Primary Care Provider] - Discharge Health Status Multidrug resistant organism: Other MDRO Verified by culture: No Provider Discharge Instructions Diet: Carb-consistent/Diabetic, Low-fat and Low-sodium Diet comment: dysphagia diet Oxygen: 2L NC Skin/Wound/Dressing Care Skin care: Nystatin powder/ ointment to groin, skin folds Discharge Data Primary Care Provider: aNto Lin Attending Provider: Jenny Walker Admit Date/Time: 10/20/18 17:24
[2018-10-24 14:26] LABS: Levetiracetam Keppra 17.8 mcg/mL (12.0-46.0)
--- NOTE | 2018-10-24 15:04 | PT.IPTN ---
Current Diagnoses Acute and chronic respiratory failure with hypoxia (10/20/18) Physical Therapy Treatment Note M2 PT-IP Current Condition Start: 10/22/18 08:34 Freq: NEEDED Status: Active Protocol: Document 10/22/18 11:00 RS (Rec: 10/22/18 12:56 RS [id number]) Physical Therapy Current Condition Current Condition Evaluation Date 10/22/18 Treatment Diagnosis acute resp failure - impaired mobility Onset Date 10/20/18 M3 PT-IP Subjective Start: 10/22/18 08:34 Freq: NEEDED Status: Active Protocol: Document 10/24/18 15:03 LJ (Rec: 10/24/18 15:04 LJ [id number]) Subjective Physical Therapy Visit Type Type Patient Unavailable Notes Nursing getting pt ready for discharge soon. M4 PT-IP Mobility and Gait Start: 10/22/18 08:34 Freq: NEEDED Status: Active Protocol: Document 10/23/18 15:15 AB (Rec: 10/23/18 16:39 AB [id number]) PT-Transfer Assessment Sit to and From Stand Sit to and from Stand Minimal Assistance 1 Person Assistance Use of Upper Extremities Comments Mobility Comments O2 sat at rest: 94% pt completed sit to stand min A and was able to maintain standing ~ 15 sec and pt has to sit down. O2 sat decreased to 93%. Gait Assessment Gait Gait Assistance Required: Minimum Assistance Distance (Feet) 10 Able to Maintain Weight Bearing Status Yes During Gait Assistive Devices Assistive Device Gait Belt Front Wheeled Walker Orthotic/Prosthetic Devices or Brace: No Gait Deviations General Gait Pattern Decreased Stride Length Decreased Feet Clearance Factors Limiting Gait Function Factors Limiting Gait Function Decreased Activity Tolerance Pain Poor Balance Comments Gait Comments pt ambulated using FWW 10 ft min A and cues and chair follow. O2 sat decreased to 86% after ambulation. increased to 90% after a few seconds of seated rest. pt has 2 L/min O2 on. M5 PT-IP Objective Assessments Start: 10/22/18 08:34 Freq: NEEDED Status: Active Protocol: Document 10/22/18 11:00 RS (Rec: 10/22/18 12:56 RS [id number]) Gross Range of Motion Upper Extremity ROM Assessment Within Functional Limits Lower Extremity ROM Assessment Within Functional Limits Strength Comments Strength Comments BLE grossly 3/5 M6 PT-IP Treatment Start: 10/22/18 08:34 Freq: NEEDED Status: Active Protocol: Document 10/22/18 11:00 RS (Rec: 10/22/18 12:56 RS [id number]) Physical Therapy Treatment Education Education Provided Safety M7 PT-IP Assessment and Plan Start: 10/22/18 08:34 Freq: NEEDED Status: Active Protocol: Document 10/23/18 15:15 AB (Rec: 10/23/18 16:39 AB [id number]) PT Summary Assessment and Plan Potential Rehabilitation Potential Fair Summary Impairments Pain ROM Strength Balance Cognition Bed Mobility Transfers Gait Activity Tolerance Progress Towards Goals Slow Progress due to Activity Tolerance Assessment Summary pt requiring min A for ambulation but presents with decrerase activity tolerance with decrease in O2 sat after ambulation. d/c plan depending on progress. pt plans to go home with family to assist her. Goals Bed Mobility Goal Standby Assistance Transfer Goal Standby Assistance Four Wheeled Walker Gait Goal Standby Assistance Four Wheel Walker Gait Distance 30 Days to Meet Goals 10 Frequency of Treatment Frequency Of Treatment Once a Day Treatment Plan Physical Therapy Treatment Plan Bed Mobility Training Transfer Training Gait Training Therapeutic Exercise Balance Retraining Post Op Education Discharge Planning Hot or Cold Pack Neuromuscular Re-ed Coordination Retraining Manual Therapy Recommendations To Nursing Amount of Assist Needed 1 Person Assist Discharge Recommendations PT Discharge Recommendations Home with 14/11 Assist Home Health SNF Rehab
--- NOTE | 2018-10-24 15:39 | CM.DPC ---
Addendum entered by Kristin Cuevas 10/24/18 15:48: Spoke with Lara at [facility] she is aware of patient's transfer to [facility]. She will coordinate trilogy. ED from [facility] notified of above. Per Ed, SNF has been authorized. Original Note: DCP/continued: Reviewed chart. Per MD/Dr. Ramos patient medically stable to discharge to SNF today. RETAIL PERFORMANCE COACH had received call from ED at [facility] re: SNF placement. Ed reports that [facility] is not contracted provider. [facility] has declined to accept patient. Other contracted facilities are [facility] and [facility]. Faxed clinical to both facilities and received phone call from [facility] indicating that they cannot accommodate. Spoke with [facility], [facility] and [facility] and she reports that they can accept. PASRR completed and PASRR/coordinator Umm Lauren notified that this patient with h/o depression, well managed on Prozac will be discharging to [facility] today. No changes to patient's routine of home mental health medication. Met with patient re: the above. Patient aware and agreeable to go to [facility]. Asked LILO/Radha to coordinate and fax d/c orders. P: [facility] today. Patient scheduled to be picked up at 4:00pm. RN updated. LISSETT Del Toro
--- NOTE | 2018-10-24 16:16 | PC.NURSE ---
1615- Pt remians with KAIDEN Moulton PICC for transfer and stay at [facility]. PICC SL flushing well. 1PA to wheelchair and placed on 2L nc to O2 tank for transfer. All DC documentation and belongings given to [facility] staff transporter. Trilogy has been set up at [facility] for pt. Telemetry removed. VSS.
--- NOTE | 2018-11-02 09:03 | PM.PFT.1 ---
Pulmonary Function Test Referral & Results Date Patient Seen: 10/24/18 Requesting provider: Jenny Walker Indication: Is a bedside spirometry Results: The spirometry demonstrates an FVC of 0.53 L which is 17% of predicted. The FEV1 was measured at 0.46 L which is 18% of predicted. The FEV1/FVC ratio was 87 which is 100 a% of predicted. No bronchodilator was administered Interpretation: This bedside spirometry demonstrates severe obstructive lung disease with both FVC and FEV1 less than 1 L
== END 2018-10-24 16:15 | DRG 133 ==
LOC: ED 15:13 → AC 17:25
PROVIDERS: Internal Medicine; Nurse Practitioner Gerontology; Admitting Provider Internal Medicine; Emergency Provider Emergency Medicine; PCP Family Medicine; Visit Provider Internal Medicine
DX: J96.21 Acute and chronic respiratory failure with hypoxia (principal); J12.89 Other viral pneumonia; J69.0 Pneumonitis due to inhalation of food and vomit; N17.9 Acute kidney failure, unspecified; J44.9 Chronic obstructive pulmonary disease, unspecified; Z99.81 Dependence on supplemental oxygen; E66.01 Morbid (severe) obesity due to excess calories; Z68.42 Body mass index [BMI] 45.0-49.9, adult; N39.0 Urinary tract infection, site not specified; B37.2 Candidiasis of skin and nail; I11.0 Hypertensive heart disease with heart failure; I50.32 Chronic diastolic (congestive) heart failure; B97.89 Other viral agents as the cause of diseases classified elsewhere; F43.21 Adjustment disorder with depressed mood; F32.9 Major depressive disorder, single episode, unspecified; Z16.23 Resistance to quinolones and fluoroquinolones; Z16.29 Resistance to other single specified antibiotic; E11.9 Type 2 diabetes mellitus without complications; Z79.4 Long term (current) use of insulin; D50.9 Iron deficiency anemia, unspecified
CPT/HCPCS: 36415; 36573; 36600; 71045; 74177; 80048; 80053; 80177; 81003; 81015; 82550; 82805; 82962; 83605; 83735; 83880; 84145; 84484; 85025; 85610; 85730; 87040; 87077; 87086; 87186; 87633; 92526; 92610; 93005; 93010; 93307; 94010; 94640; 94667; 94668; 94760; 94762; 94799; 96365; 96375; 97116; 97163; 97165; 97530; 97535; 99285; J0692; J0696; J1644; J2270; J2930; J7050; J7613; Q9967

== ENCOUNTER 2018-10-27 16:52 | Emergency (ER) | payer OTHER, MEDICAID, SELFPAY ==
[2018-10-20 17:30] VITALS: BMI 44.6
[2018-10-27] VITALS (12 sets, daily range): BP systolic 134–167; BP diastolic 62–111; PULSE 82–107; RESP 16–26; TEMP 36.6; O2SAT 91–99; BMI 46.0
--- NOTE | 2018-10-27 16:58 | DI.RAD.S_ITS ---
PROCEDURE: XR CHEST 1V INDICATIONS: short of breath TECHNIQUE: One view of the chest was acquired. COMPARISON: [facility], CR, XR CHEST 1V, 10/20/2018, 12:41. FINDINGS: Surgical changes and devices: A wire-type apparatus is seen overlying the left axilla, probably representing a PICC line catheter. This may be positioned overlying the junction between the brachiocephalic and superior vena cava, but is not well-seen Lungs and pleura: Opacification of the left lung base is identified with obscuration of the diaphragm and possible blunting of within the region of the costophrenic angle. There is hazy density identified along the medial aspect of the right lung base. Mediastinum: Mediastinal contours appear normal. Heart size is enlarged. Pulmonary vascular markings are increased. Bones and chest wall: No suspicious bony lesions. Overlying soft tissues appear unremarkable. IMPRESSION: 1. Cardiomegaly with associated moderate pulmonary edema. Please correlate clinically for possible congestive heart failure. 2. Bibasilar opacities (left greater than right) this is probably is related to pulmonary edema with a small left-sided pleural effusion and associated atelectasis. Please correlate clinically to exclude pneumonia. Dictated by: Santino Anton M.D. on 10/27/2018 at 16:52 Approved by: Santino Anton M.D. on 10/27/2018 at 16:55
--- NOTE | 2018-10-27 16:59 | DI.CT.S_ITS ---
PROCEDURE: CT ANGIO CHEST PE PROTOCOL INDICATIONS: short of breath recent hospitalizations TECHNIQUE: After the administration of intravenous contrast, 2 mm thick sections acquired from the pulmonary apices to the posterior costophrenic angles. 3-dimensional maximum intensity projection (MIP) coronal and sagittal reformats were then acquired through the thorax. For radiation dose reduction, the following was used: automated exposure control, adjustment of mA and/or kV according to patient size. COMPARISON: None. FINDINGS: Image quality: Suboptimal. The scan is diagnostic for large central PE is but not beyond the lobar bifurcations. Pulmonary arteries: Pulmonary artery outflow tract is dilated measuring 3.3 cm. There is no saddle embolus, main pulmonary artery, or lobar embolus, however the exam is nondiagnostic for second-order branches and a significant finding may be missed. Lungs and pleura: Dense medial left upper lobe consolidation extending from the hilum. Dense lower lobe consolidation. Small left pleural effusion. Groundglass opacity anteriorly in the left upper lobe. Platelike atelectasis involving the lateral segment of the right middle lobe and compressive atelectasis posteriorly at the right lung base. Very small right pleural effusion. The left main bronchus is compressed. There right is patent. Mediastinum: Heart size is moderately enlarged, with a small pericardial effusion. Mild AP window, prevascular, and pretracheal adenopathy. Moderate right hilar adenopathy. Mild left hilar adenopathy. Thoracic aorta is normal in caliber and enhancement. Esophagus is normal in caliber, without hiatal hernia. Bones and chest wall: There is significant bony destruction of T6 with irregular enhancing and expansile anterior paravertebral soft tissue. There is a focal kyphosis at this level. There may be enhancing soft tissue along the ventral epidural space. The Thyroid gland is normal. No axillary or supraclavicular adenopathy. Abdomen: Visualized upper abdominal solid organs appear normal in the early arterial phase of enhancement. Post cholecystectomy. IMPRESSION: 1. There is significant osseous destruction of T6 and expansile soft tissue component extending paravertebral anterolaterally, and potentially dorsally into the central canal possibly compressing the thecal sac. There is mild kyphotic deformity at this level. Findings are highly suspicious for osteomyelitis although differential diagnosis includes a neoplastic process. There is reactive adenopathy in the hilar and mediastinal regions. 2. No large central pulmonary embolus, but exam is nondiagnostic for second-order arterial branches. 3. There is dense left upper and lower lobe atelectasis, likely secondary to left bronchial compression, likely secondary to adenopathy and cardiomegaly. 4. Small bilateral pleural effusions, nonspecific. 5. Small pericardial effusion. 6. Cholecystectomy. 7. Findings discussed with Dr. Monzon the emergency room at 8 PM. Dictated by: Patti Reyez M.D. on 10/27/2018 at 19:44 Approved by: Patti Reyez M.D. on 10/27/2018 at 20:04
[2018-10-27] MEDS: methylPREDNISolone 125 MG/2 ML VIAL IV (17:17)
[2018-10-27 17:29] LABS: Add Manual Diff / Slide Review NO; Basophils Absolute Auto 100 /uL (0-100); Basophils Percent Auto 0.8 % (0-2); Eosinophils Absolute Auto 100 /uL (0-450); Eosinophils Percent Auto 1.4 % (2-4); Hematocrit 30.8 % (36-46); Hemoglobin 9.6 g/dL (12.0-16.0); Lymphocytes Absolute Auto 1100 /uL (1100-4500); Lymphocytes Percent Auto 11.3 % (25-40); Mean Corpuscular HGB Conc 31.1 % (30-36); Mean Corpuscular Hemoglobin 25.4 PG (26-34); Mean Corpuscular Volume 81.6 fL (80-100); Monocytes Absolute Auto 600 /uL (0-900); Monocytes Percent Auto 5.6 % (3-14); Neutrophils Absolute Auto 8000 /uL (1500-7000); Neutrophils Percent Auto 80.9 % (50-75); Platelet Count 252 X10^3/uL (150-400); Red Blood Cell Count 3.77 X10^6/uL (4.0-5.2); Red Cell Distribution Width 17.7 % (11.6-14.8); White Blood Cell Count 9.8 X10^3/uL (4.5-11.0)
[2018-10-27 17:31] LABS: INR 1.1 (0.9-1.3); Prothrombin Time 12.3 SECONDS (10.1-12.7)
[2018-10-27 17:33] LABS: PTT Partial Thromboplastin Tim 33 SECONDS (26.4-36.2)
[2018-10-27 17:48] LABS: PCO2 ABG 52.2 mmHg (35-45); pH ABG 7.33 (7.35-7.45)
[2018-10-27 17:49] LABS: HCO3 ABG 27 mmol/L (22-26); Oxygen Saturation ABG 96 % (95-100); PO2 ABG 87 mmHg (80-100); TCO2 ABG 29 mmol/L (21-31)
[2018-10-27 17:50] LABS: Fractionated Inspired Oxygen 32
--- NOTE | 2018-10-27 17:54 | ED_ITS ---
HPI - SOB/Dyspnea General Chief Complaint: Shortness of Breath/Dyspnea Stated Complaint: Low Oxygen Saturation Time Seen by Provider: 10/27/18 16:56 Source: patient Mode of arrival: EMS Limitations: no limitations History of Present Illness Patient is a 57-year-old female with multiple medical problems. Was discharged within the past several days from the hospital after being admitted for a COPD exacerbation. She returns today for increasing back pain, not feeling well, shortness of breath, she has a baseline oxygen by nasal cannula 2 L which has had to be increased. She is not on that mobile at the nursing facility. She is currently receiving cefepime 2 g 2 times a day over the past several days. This is scheduled to continue until the of this month. This was started after her last hospital visit after she had a positive blood culture of MRSA. Related Data Home Medications Medication Instructions Recorded Confirmed amlodipine 10 mg PO DAILY 09/20/18 10/20/18 ascorbic acid (vitamin C) [Vitamin 500 mg PO DAILY 09/20/18 10/21/18 C With Shona Hips] carvedilol 25 mg PO BID 09/20/18 10/20/18 ferrous sulfate 325 mg PO DAILY 09/20/18 10/21/18 hydralazine 25 mg PO TID 09/20/18 10/20/18 levetiracetam 500 mg PO BID 09/20/18 10/20/18 losartan 100 mg PO DAILY 09/20/18 10/20/18 nystatin 1 applic TOPICAL [id number] 09/20/18 10/20/18 potassium chloride 10 meq PO DAILY 09/20/18 10/20/18 furosemide 20 mg PO DAILY 10/10/18 10/20/18 insulin lispro 10 units SUBCUT 3-4XD 10/10/18 10/20/18 pseudoephedrine HCl 30 mg PO QID 10/10/18 10/20/18 prochlorperazine maleate 10 mg TID 10/20/18 10/20/18 Previous Rx's Medication Instructions Recorded cefepime 2 gm IV Q12H 7 Days each 10/24/18 fluoxetine 20 mg PO DAILY #30 cap 10/24/18 guaifenesin [Mucus Relief ER] 1,200 mg PO BID #20 tab 10/24/18 insulin glargine [Lantus Solostar 15 unit SUBCUT BEDTIME 30 Days ml 10/24/18 U-100 Insulin] nystatin 1 applic TOPICAL TID 30 Days #3 10/24/18 gram Allergies Allergy/AdvReac Type Severity Reaction Status Date / Time naproxen Allergy Mild MADE MY Verified 05/26/18 10:43 FACE NUMB meperidine Allergy Unknown Verified 05/26/18 10:43 Penicillins Allergy Unknown Verified 05/26/18 10:43 Sulfa (Sulfonamide Allergy Unknown Verified 05/26/18 10:43 Antibiotics) diphenhydramine AdvReac Shakiness Verified 05/26/18 10:43 [From Benadryl] Review of Systems Constitutional Denies chills, Reports fatigue, Reports lethargy and Reports malaise ENT Ears, Nose, Mouth, and Throat: Denies sore throat Cardiovascular Denies chest pain, Reports edema, Reports dyspnea and Reports dyspnea on exertion Respiratory Reports dyspnea and Reports dyspnea on exertion Gastrointestinal Gastrointestinal: Denies abdominal pain, Denies nausea and Denies vomiting Genitourinary Denies dysuria Musculoskeletal Denies abnormal gait, Reports back pain, Denies myalgias and Denies arthralgias Integumentary/Breasts Denies rash Neurologic Denies abnormal gait Endocrine Reports fatigue Hematologic/Lymphatic Denies easy bleeding and Denies easy bruising Allergic/Immunologic Denies urticaria [facility]LY [facility] Medical History History of congestive heart failure (Acute) Chronic respiratory failure (Acute) Hypoxia (Acute) Meningioma (Acute) Diabetes (Acute) Morbidly obese (Acute) COPD (chronic obstructive pulmonary disease) (Acute) Hypertension (Acute) Social History household members: children Smoking Status: Never smoker Exam Initial Vital Signs Initial Vital Signs: Vital Signs Temperature 97.9 F 10/27/18 17:07 Pulse Rate 84 10/27/18 17:07 Respiratory Rate 17 10/27/18 17:07 Blood Pressure 142/66 H 10/27/18 17:07 Pulse Oximetry 97 10/27/18 17:07 Const General: cooperative, well developed, well groomed and No acute distress Orientation: alert, awake and oriented x3 HENMT Head: normal to inspection and normocephalic Resp Effort & Inspection: cough, labored and tachypneic Auscultation: crackles Cardio Rate: regular rate Back/Spine/Pelvis Cervical Spine: No cervical spasm and No cervical spinal tenderness Thoracic/Lumbar Spine: thoracic spinal tenderness and No lumbar spinal tenderness Skin Lesions: no lesions Rashes: no rashes Neuro General: alert and awake Cognition: normal cognition Speech: speech normal Motor: muscle tone normal throughout Sensory Exam: no sensory deficits noted Extrem General: normal to inspection and capillary refill normal Psych Appearance: grossly normal and well kempt Course Orders Ordered: ED Orders 10/27/18 16:58 Consult to Respiratory Therapy Evaluate & Treat XR chest 1V Stat EKG-12 Lead Stat 10/27/18 16:59 CT angio chest PE protocol Stat 10/27/18 17:10 Arterial Blood Gas Stat 10/27/18 17:13 B Type Natriuretic Peptide Stat Complete Blood Count AUTO DIFF Stat Comprehensive Metabolic Panel Stat Lactate (Lactic Acid) Stat Magnesium Stat Partial Thromboplastin Time Stat Procalcitonin Stat Prothrombin Time INR Stat Troponin & CK Cardiac Panel Stat 10/27/18 17:45 Blood Culture Stat Discontinued Medications Albuterol/Ipratropium (Duoneb) 3 ml INH NOW ONE Stop: 10/27/18 16:59 Last Admin: 10/27/18 18:28 Dose: 3 ml Furosemide (Lasix) 40 mg IV NOW ONE Stop: 10/27/18 20:23 Last Admin: 10/27/18 21:01 Dose: 40 mg Cefepime HCl 2 gm/ Sodium (Chloride) 100 mls @ 200 mls/hr IV NOW ONE Stop: 10/27/18 20:23 Last Infusion: 10/27/18 21:55 Dose: 0 mls/hr Admin: 10/27/18 21:10 Dose: 200 mls/hr Methylprednisolone (Solu-Medrol 125 Mg Vial) 125 mg IV NOW ONE Stop: 10/27/18 16:59 Last Admin: 10/27/18 17:17 Dose: 125 mg Vital Signs - 8 hr 10/27/18 17:07 10/27/18 17:15 10/27/18 17:24 Temperature 97.9 F 97.9 F Pulse Rate 84 88 84 Respiratory Rate 17 24 17 Blood Pressure 142/66 H 142/66 H Blood Pressure [Left Arm] Pulse Oximetry 97 92 97 10/27/18 17:39 10/27/18 18:00 10/27/18 18:26 Temperature Pulse Rate 82 97 H 88 Respiratory Rate 20 19 24 Blood Pressure Blood Pressure [Left Arm] 144/67 H 153/106 H Pulse Oximetry 99 92 93 10/27/18 19:06 10/27/18 19:30 10/27/18 21:00 Temperature Pulse Rate 102 H 99 H 102 H Respiratory Rate 26 H 17 22 Blood Pressure Blood Pressure [Left Arm] 160/69 H 167/62 H 159/68 H Pulse Oximetry 91 97 94 MDM - SOB/Dyspnea Lab Data Attestation: I reviewed the patient's lab results. Result diagrams: 10/27/18 17:13 10/27/18 17:13 Lab Results 10/27/18 10/27/18 10/27/18 Range/Units 17:10 17:13 17:13 WBC 9.8 (4.5-11.0) X10^3/uL RBC 3.77 L (4.0-5.2) X10^6/uL Hgb 9.6 L (12.0-16.0) g/dL Hct 30.8 L (36-46) % MCV 81.6 (80-100) fL MCH 25.4 L (26-34) PG MCHC 31.1 (30-36) % RDW 17.7 H (11.6-14.8) % Plt Count 252 (150-400) X10^3/uL Neut % (Auto) 80.9 H (50-75) % Lymph % (Auto) 11.3 L (25-40) % [place] % (Auto) 5.6 (3-14) % Eos % (Auto) 1.4 L (2-4) % Baso % (Auto) 0.8 (0-2) % Neut # (Auto) 8000 H (6676-5768) /uL Lymph # (Auto) 1100 (7141-2419) /uL [place] # (Auto) 600 (0-900) /uL Eos # (Auto) 100 (0-450) /uL Baso # (Auto) 100 (0-100) /uL PT 12.3 (10.1-12.7) SECONDS INR 1.1 (0.9-1.3) APTT 33 D (26.4-36.2) SECONDS ABG pH 7.33 L (7.35-7.45) ABG pCO2 52.2 H (35-45) mmHg ABG pO2 87 (80-100) mmHg ABG HCO3 27 H (22-26) mmol/L ABG Total CO2 29 (21-31) mmol/L ABG O2 Saturation 96 (95-100) % ABG Base Excess 1.0 (-2-2) mmol/L FiO2 32 Sodium (137-145) mmol/L Potassium (3.4-5.1) mmol/L Chloride (98-107) mmol/L Carbon Dioxide (22-32) mmol/L BUN (7-17) mg/dL Creatinine (0.52-1.04) mg/dL Estimated GFR (>60) mL/min BUN/Creatinine Ratio (6-22) Glucose (70-100) mg/dL Lactate (0.7-2.1) mmol/L Calcium (8.4-10.2) mg/dL Magnesium (1.6-2.3) mg/dL Total Bilirubin (0.2-1.3) mg/dL AST (14-36) IU/L ALT (9-52) IU/L Alkaline Phosphatase (38-126) U/L Total Creatine Kinase (30-135) U/L CK-MB (CK-2) CK-MB (CK-2) Rel Index Troponin I (0.01-0.034) ng/mL B-Natriuretic Peptide < 100 (<100) Total Protein (6.3-8.2) g/dL Albumin (3.5-5.0) g/dL Globulin (1.7-4.1) g/dL Albumin/Globulin Ratio (1.0-2.8) Procalcitonin (<0.5) ng/mL 10/27/18 10/27/18 10/27/18 Range/Units 17:13 17:13 17:13 WBC (4.5-11.0) X10^3/uL RBC (4.0-5.2) X10^6/uL Hgb (12.0-16.0) g/dL Hct (36-46) % MCV (80-100) fL MCH (26-34) PG MCHC (30-36) % RDW (11.6-14.8) % Plt Count (150-400) X10^3/uL Neut % (Auto) (50-75) % Lymph % (Auto) (25-40) % [place] % (Auto) (3-14) % Eos % (Auto) (2-4) % Baso % (Auto) (0-2) % Neut # (Auto) (1445-2972) /uL Lymph # (Auto) (4413-5794) /uL [place] # (Auto) (0-900) /uL Eos # (Auto) (0-450) /uL Baso # (Auto) (0-100) /uL PT (10.1-12.7) SECONDS INR (0.9-1.3) APTT (26.4-36.2) SECONDS ABG pH (7.35-7.45) ABG pCO2 (35-45) mmHg ABG pO2 (80-100) mmHg ABG HCO3 (22-26) mmol/L ABG Total CO2 (21-31) mmol/L ABG O2 Saturation (95-100) % ABG Base Excess (-2-2) mmol/L FiO2 Sodium 144 (137-145) mmol/L Potassium 3.6 (3.4-5.1) mmol/L Chloride 106 (98-107) mmol/L Carbon Dioxide 26 (22-32) mmol/L BUN 19 H (7-17) mg/dL Creatinine 0.60 (0.52-1.04) mg/dL Estimated GFR > 60.0 (>60) mL/min BUN/Creatinine Ratio 31.7 H (6-22) Glucose 144 H (70-100) mg/dL Lactate 0.5 L (0.7-2.1) mmol/L Calcium 10.5 H (8.4-10.2) mg/dL Magnesium 1.9 (1.6-2.3) mg/dL Total Bilirubin 0.4 (0.2-1.3) mg/dL AST 42 H (14-36) IU/L ALT 27 (9-52) IU/L Alkaline Phosphatase 97 (38-126) U/L Total Creatine Kinase < 20 L (30-135) U/L CK-MB (CK-2) TNP CK-MB (CK-2) Rel Index TNP Troponin I < 0.012 (0.01-0.034) ng/mL B-Natriuretic Peptide (<100) Total Protein 7.5 (6.3-8.2) g/dL Albumin 3.8 (3.5-5.0) g/dL Globulin 3.7 (1.7-4.1) g/dL Albumin/Globulin Ratio 1.0 (1.0-2.8) Procalcitonin < 0.05 (<0.5) ng/mL Imaging Data CTA of chest: Radiologist's impression: Rocío Enriquez 57 F 1960 [place] [address] CT Scan Report Signed Patient: Rocío Enriquez KMR#: [id number] : 2Acct:[id number] Age/Sex: 57 / FDate of Service: 10/27/18 Loc: ED Accession Number: [id number] Procedure: CT angio chest PE protocol Ordering Provider: Char Quiroz D.O. PROCEDURE: CT ANGIO CHEST PE PROTOCOL INDICATIONS: short of breath recent hospitalizations TECHNIQUE: After the administration of intravenous contrast, 2 mm thick sections acquired from the pulmonary apices to the posterior costophrenic angles. 3-dimensional maximum intensity projection (MIP) coronal and sagittal reformats were then acquired through the thorax. For radiation dose reduction, the following was used: automated exposure control, adjustment of mA and/or kV according to patient size. COMPARISON: None. FINDINGS: Image quality: Suboptimal. The scan is diagnostic for large central PE is but not beyond the lobar bifurcations. Pulmonary arteries: Pulmonary artery outflow tract is dilated measuring 3.3 cm. There is no saddle embolus, main pulmonary artery, or lobar embolus, however the exam is nondiagnostic for second-order branches and a significant finding may be missed. Lungs and pleura: Dense medial left upper lobe consolidation extending from the hilum. Dense lower lobe consolidation. Small left pleural effusion. Groundglass opacity anteriorly in the left upper lobe. Platelike atelectasis involving the lateral segment of the right middle lobe and compressive atelectasis posteriorly at the right lung base. Very small right pleural effusion. The left main bronchus is compressed. There right is patent. Mediastinum: Heart size is moderately enlarged, with a small pericardial effusion. Mild AP window, prevascular, and pretracheal adenopathy. Moderate right hilar adenopathy. Mild left hilar adenopathy. Thoracic aorta is normal in caliber and enhancement. Esophagus is normal in caliber, without hiatal hernia. Bones and chest wall: There is significant bony destruction of T6 with irregular enhancing and expansile anterior paravertebral soft tissue. There is a focal kyphosis at this level. There may be enhancing soft tissue along the ventral epidural space. The Thyroid gland is normal. No axillary or supraclavicular adenopathy. Abdomen: Visualized upper abdominal solid organs appear normal in the early arterial phase of enhancement. Post cholecystectomy. IMPRESSION: 1. There is significant osseous destruction of T6 and expansile soft tissue component extending paravertebral anterolaterally, and potentially dorsally into the central canal possibly compressing the thecal sac. There is mild kyphotic deformity at this level. Findings are highly suspicious for osteomyelitis although differential diagnosis includes a neoplastic process. There is reactive adenopathy in the hilar and mediastinal regions. 2. No large central pulmonary embolus, but exam is nondiagnostic for second- order arterial branches. 3. There is dense left upper and lower lobe atelectasis, likely secondary to left bronchial compression, likely secondary to adenopathy and cardiomegaly. 4. Small bilateral pleural effusions, nonspecific. 5. Small pericardial effusion. 6. Cholecystectomy. 7. Findings discussed with Dr. Monzon the emergency room at 8 PM. Dictated by: Patti Reyez M.D. on 10/27/2018 at 19:44 Approved by: Patti Reyez M.D. on 10/27/2018 at 20:04 Chest x-ray: Radiologist's impression: [address] [address] XRay Report Signed Patient: Rocío Enriquez KMR#: [id number] : 2Acct:[id number] Age/Sex: 57 / FDate of Service: 10/27/18 Loc: ED Accession Number: [id number] Procedure: XR chest 1V Ordering Provider: Char Quiroz D.O. PROCEDURE: XR CHEST 1V INDICATIONS: short of breath TECHNIQUE: One view of the chest was acquired. COMPARISON: [facility], , XR CHEST 1V, 10/20/2018, 12:41. FINDINGS: Surgical changes and devices: A wire-type apparatus is seen overlying the left axilla, probably representing a PICC line catheter. This may be positioned overlying the junction between the brachiocephalic and superior vena cava, but is not well- seen Lungs and pleura: Opacification of the left lung base is identified with obscuration of the diaphragm and possible blunting of within the region of the costophrenic angle. There is hazy density identified along the medial aspect of the right lung base. Mediastinum: Mediastinal contours appear normal. Heart size is enlarged. Pulmonary vascular markings are increased. Bones and chest wall: No suspicious bony lesions. Overlying soft tissues appear unremarkable. IMPRESSION: 1. Cardiomegaly with associated moderate pulmonary edema. Please correlate clinically for possible congestive heart failure. 2. Bibasilar opacities (left greater than right) this is probably is related to pulmonary edema with a small left-sided pleural effusion and associated atelectasis. Please correlate clinically to exclude pneumonia. Dictated by: Santino Anton M.D. on 10/27/2018 at 16:52 Approved by: Santino Anton M.D. on 10/27/2018 at 16:55 ECG Data Attestation: I personally reviewed and interpreted this ECG as follows: Prior ECG tracings: not available for review Interpretation: Sinus rhythm Ventricular rate 81 Normal QRS Normal QTC Normal axis No ST T wave changes MDM Narrative Medical decision making narrative: Patient has a normal white blood cell count normal lactate and negative procalcitonin. This is also in the setting of anti biotics through a PICC line for the past several days. Her CTA does show it looks like osteomyelitis of the T6 vertebrae. She is tender over this area. She has no new neurologic deficits distal to this. I did discuss the case with Dr. Osuna our orthopedist here at the hospital who stated that the patient needs to be transfer for specialist. I did discuss the case with Dr. Mcdonald with Orthopedics at [facility] who did review the patient's CT scan. Who stated that she should be transferred to [facility]. I then discussed the case with Dr. Johnsno at the emergency department [facility] who accepts the patient in transfer. Patient was informed of transport and stable for transfer. She was given her evening dose of cefepime here in the emergency department. No blood cultures were drawn here in the ER. Discharge Plan Departure Patient Disposition: Admitted As Inpatient Clinical Impression: Diabetes, COPD (chronic obstructive pulmonary disease), CHF (congestive heart failure), Osteomyelitis Referrals: Nato Lin MD [Primary Care Provider] -
[2018-10-27 17:58] LABS: Procalcitonin < 0.05 ng/mL (<0.5)
[2018-10-27 18:10] LABS: B Type Natriuretic Peptide < 100 (<100)
[2018-10-27 18:22] LABS: Lactate (Lactic Acid) 0.5 mmol/L (0.7-2.1)
[2018-10-27 18:23] LABS: Alanine Aminotransferase 27 IU/L (9-52); Albumin 3.8 g/dL (3.5-5.0); Alkaline Phosphatase 97 U/L (38-126); Aspartate Aminotransferase 42 IU/L (14-36); BUN Creatinine Ratio 31.7 (6-22); Bilirubin Total 0.4 mg/dL (0.2-1.3); Blood Urea Nitrogen 19 mg/dL (7-17); Calcium 10.5 mg/dL (8.4-10.2); Carbon Dioxide 26 mmol/L (22-32); Chloride 106 mmol/L (98-107); Creatine Kinase < 20 U/L (30-135); Estimated Glomerular Filt Rate > 60.0 mL/min (>60); Globulin 3.7 g/dL (1.7-4.1); Glucose 144 mg/dL (70-100); HEMOLYSIS 31 (0-50); Magnesium 1.9 mg/dL (1.6-2.3); Potassium 3.6 mmol/L (3.4-5.1); Sodium 144 mmol/L (137-145); Total Protein 7.5 g/dL (6.3-8.2)
--- NOTE | 2018-10-27 18:26 | PC.NURSE ---
Patient transported to CT with geology technician. Alert and oriented and using yoly for self suctioning as needed.
[2018-10-27] MEDS: ALBUTEROL/IPRATROPIUM 3 ML AMPUL INH (18:28)
[2018-10-27 18:35] LABS: Troponin I < 0.012 ng/mL (0.01-0.034)
--- NOTE | 2018-10-27 19:03 | PC.NURSE ---
was called to Ct to place an Iv in. pt was getting her ct and per tech the pressure of the infusion caused the picc line to break at the red hub. Dr. chavira aware. picc line was double clamped and clear dressing place on top by Ruby in Ct. I was able to place an 18gin her right ac so she could complete the ct study
--- NOTE | 2018-10-27 19:08 | PC.NURSE ---
Pt's PICC broke during CT of chest. solar energy technician started 18G in pt's right AC. [facility] PICC called to replace PICC line. ETA 2 hrs
--- NOTE | 2018-10-27 19:59 | PC.NURSE ---
Pt was asking to speak with the para operator-- pt stated that the nurse at the SNF said to her, I hope you're ready to go, and the patient states that that really screwed with my head. Emotional support given to patient, I called the para operator vocational training director and he is now at bedside.
[2018-10-27] MEDS: FUROSEMIDE 40 MG/4 ML VIAL IV (21:01)
[2018-10-27] MEDS: CEFEPIME 2 GM in SODIUM CHLORIDE 0.9% 100 ML 200 ML IV (21:10)
== END 2018-10-27 23:41 | disposition short-term general hospital (02) ==
PROVIDERS: Emergency Medicine; Emergency Provider Emergency Medicine; PCP Family Medicine
DX: J44.9 Chronic obstructive pulmonary disease, unspecified (principal); I50.9 Heart failure, unspecified; M86.9 Osteomyelitis, unspecified; E11.9 Type 2 diabetes mellitus without complications
CPT/HCPCS: 36415; 36591; 36600; 71045; 71275; 80053; 82550; 82805; 83605; 83735; 83880; 84145; 84484; 85025; 85610; 85730; 87040; 93005; 93010; 94640; 96365; 96375; 99285; J0692; J1940; J2930; Q9967

== ENCOUNTER → 2018-12-13 22:30 | Outpatient (ROUT) | payer OTHER, MEDICAID, SELFPAY ==
[2018-10-20 17:30] VITALS: BMI 44.6
[2018-12-13 22:40] LABS: Add Manual Diff / Slide Review NO; Basophils Absolute Auto 100 /uL (0-100); Basophils Percent Auto 1.2 % (0-2); Eosinophils Absolute Auto 100 /uL (0-450); Eosinophils Percent Auto 2.5 % (2-4); Hematocrit 27.6 % (36-46); Hemoglobin 9.3 g/dL (12.0-16.0); Lymphocytes Absolute Auto 1400 /uL (1100-4500); Lymphocytes Percent Auto 25.9 % (25-40); Mean Corpuscular HGB Conc 33.6 % (30-36); Mean Corpuscular Hemoglobin 29.2 PG (26-34); Monocytes Absolute Auto 400 /uL (0-900); Monocytes Percent Auto 7.5 % (3-14); Neutrophils Absolute Auto 3300 /uL (1500-7000); Neutrophils Percent Auto 62.9 % (50-75); Platelet Count 254 X10^3/uL (150-400); Red Blood Cell Count 3.18 X10^6/uL (4.0-5.2); Red Cell Distribution Width 16.9 % (11.6-14.8); White Blood Cell Count 5.2 X10^3/uL (4.5-11.0)
[2018-12-13 22:44] LABS: Alanine Aminotransferase 20 IU/L (9-52); Albumin 3.2 g/dL (3.5-5.0); Alkaline Phosphatase 65 U/L (38-126); Aspartate Aminotransferase 18 IU/L (14-36); BUN Creatinine Ratio 17.5 (6-22); Bilirubin Total 0.2 mg/dL (0.2-1.3); Blood Urea Nitrogen 14 mg/dL (7-17); Calcium 9.3 mg/dL (8.4-10.2); Carbon Dioxide 34 mmol/L (22-32); Chloride 101 mmol/L (98-107); Estimated Glomerular Filt Rate > 60.0 mL/min (>60); Globulin 3.1 g/dL (1.7-4.1); Glucose 114 mg/dL (70-100); HEMOLYSIS < 15 (0-50); Potassium 3.3 mmol/L (3.4-5.1); Sodium 139 mmol/L (137-145); Total Protein 6.3 g/dL (6.3-8.2)
[2018-12-13 22:48] LABS: C-Reactive Protein Quant < 0.5 mg/dL (<1.0)
== END ==
PROVIDERS: PCP Family Medicine; Visit Provider Internal Medicine
DX: E11.9 Type 2 diabetes mellitus without complications (principal); I50.9 Heart failure, unspecified; J44.9 Chronic obstructive pulmonary disease, unspecified
CPT/HCPCS: 80053; 85025; 86140

== ENCOUNTER 2020-04-07 11:27 | Emergency (ER) | payer OTHER, MEDICAID, SELFPAY ==
[2018-10-20 17:30] VITALS: BMI 44.6
[2020-04-07] VITALS (16 sets, daily range): BP systolic 170–237; BP diastolic 74–104; PULSE 58–79; RESP 16–28; O2SAT 90–100; BMI 52.5
--- NOTE | 2020-04-07 11:38 | DI.CT.S_ITS ---
PROCEDURE: CT STROKE INDICATIONS: waxing/waning slurred speech X3hr, h/o brain tumor. TECHNIQUE: Noncontrast 4.5 mm thick angled axial sections acquired from the foramen magnum to the vertex, with coronal reformats. For radiation dose reduction, the following was used: automated exposure control, adjustment of mA and/or kV according to patient size. COMPARISON: [facility], CT, CT HEAD/BRAIN WO CON, 05/14/2018, 10:46. [facility], CT, CT ANGIO HEAD AND NECK, 05/27/2018, 18:35. FINDINGS: Image quality: Excellent. CSF spaces: Basal cisterns are patent. No extra-axial fluid collections. The ventricles are symmetric in size and shape. Brain: There is redemonstration of hyper dense extra-axial left temporal mass, measuring 3.7 x 2.3 cm, which is grossly unchanged to minimally increased since 05/27/18. Associated mass effect with minimal rightward midline shift as before, measuring 4 mm. There is also partial effacement of the left lateral recess. Elsewhere, no acute hemorrhage is seen. There is cerebral volume loss for age, with resultant ventricular and sulcal prominence. There are periventricular and deep white matter chronic small vessel ischemic changes. There is intracranial internal carotid artery atherosclerosis. Skull and face: Calvarium and visualized facial bones appear intact, without suspicious lesions. Sinuses: Visualized sinuses and mastoids are clear. IMPRESSION: Redemonstrated hyperdense left temporal extra-axial mass, which is grossly unchanged to minimally increased since the prior study dated 05/27/18. Associated rightward midline shift and partial effacement of the left lateral recess is grossly unchanged. Elsewhere, no acute hemorrhage. Findings were personally telephoned and discussed with Dr. Castillo in the emergency department at 1220 hours on 04/07/20. This study fulfills neurological imaging criteria for inclusion or exclusion of acute stroke therapies based on available published neurological guidelines. Dictated by: Grupo Vences M.D. on 04/07/2020 at 12:13 Approved by: Grupo Vences M.D. on 04/07/2020 at 12:22
[2020-04-07 11:49] LABS: Add Manual Diff / Slide Review NO; Basophils Absolute Auto 100 /uL (0-100); Eosinophils Absolute Auto 200 /uL (0-450); Eosinophils Percent Auto 3.6 % (2-4); Hemoglobin 11.2 g/dL (12.0-16.0); Lymphocytes Absolute Auto 1900 /uL (1100-4500); Lymphocytes Percent Auto 27.5 % (25-40); Mean Corpuscular Hemoglobin 24.7 PG (26-34); Mean Corpuscular Volume 79.8 fL (80-100); Monocytes Absolute Auto 400 /uL (0-900); Monocytes Percent Auto 5.3 % (3-14); Neutrophils Absolute Auto 4300 /uL (1500-7000); Neutrophils Percent Auto 62.6 % (50-75); Platelet Count 305 X10^3/uL (150-400); Red Blood Cell Count 4.52 X10^6/uL (4.0-5.2); Red Cell Distribution Width 17.2 % (11.6-14.8); White Blood Cell Count 6.8 X10^3/uL (4.5-11.0)
[2020-04-07 11:50] LABS: Prothrombin Time 11.6 SECONDS (10.1-12.7)
--- NOTE | 2020-04-07 11:50 | ED.NEUROSD ---
HPI - Neuro Symptoms/Deficit General Chief Complaint: Neuro Symptoms/Deficit Stated Complaint: Possible TIA Time Seen by Provider: 04/07/20 11:36 Source: patient and EMS Mode of arrival: EMS History of Present Illness HPI Narrative: 59-year-old with a complex medical history that includes morbid obesity, COPD, congestive heart failure, hypertension, meningioma with possible seizure association as well as intermittent stroke-like symptoms, spinal osteomyelitis within the last 12 months [facility] presents with concerns for garbled speech. She apparently was talking to her mother on the phone at 7:30 a.m. this morning and was unable to say the word applesauce. She has had similar symptoms previously that had been attributed to her ?brain tumor? which is her meningioma and they have agreed that applesauce is the word that they will focus on to see if she is having difficulties with her speech. Symptoms seem like they improved but then continued to wax and wane over the next 3 hours. She has had intermittent lip numbness. On initial presentation in the emergency department she is able to say applesauce however she does have mild dysarthria and heaviness in both the left upper and lower extremity without any sensation abnormalities or facial droop. She states she has been taking all of her medications as prescribed in her blood sugar was 117 prior to arrival. On Anticoagulants: No Related Data Home Medications Medication Instructions Recorded Confirmed carvedilol 25 mg PO BID 09/20/18 04/07/20 hydralazine 25 mg PO TID 09/20/18 04/07/20 levetiracetam 500 mg PO BID 09/20/18 04/07/20 nystatin 1 applic TOPICAL [id number] 09/20/18 04/07/20 potassium chloride 10 meq PO DAILY 09/20/18 04/07/20 furosemide 20 mg PO DAILY 10/10/18 04/07/20 insulin lispro 10 units SUBCUT 3-4XD PRN 10/10/18 04/07/20 gabapentin 300 mg PO TID 04/07/20 04/07/20 losartan 100 mg PO DAILY 04/07/20 04/07/20 tiotropium bromide [Spiriva with 1 cap INHALATION DAILY 04/07/20 04/07/20 HandiHaler] Allergies Allergy/AdvReac Type Severity Reaction Status Date / Time naproxen Allergy Mild MADE MY Verified 04/07/20 11:35 FACE NUMB meperidine Allergy Unknown Verified 04/07/20 11:35 Penicillins Allergy Unknown Verified 04/07/20 11:35 Sulfa (Sulfonamide Allergy Unknown Verified 04/07/20 11:35 Antibiotics) diphenhydramine AdvReac Shakiness Verified 04/07/20 11:35 [From Benadryl] Review of Systems Review of Systems Narrative: Pertinent positive and negative findings as per HPI Remainder of review of systems is otherwise unremarkable for Constitutional: Fevers, chills, ENT: No sore throat, neck pain, ear pain CV: Chest pain, palpitations, dyspnea on exertion Respiratory: Cough, wheeze GI: Nausea, vomiting, : Dysuria, hematuria, flank pain Neuro: Syncope, dizziness, Patient History Medical History (Updated 04/07/20 @ 15:56 by Mirna Vicente MD) Chronic respiratory failure COPD (chronic obstructive pulmonary disease) Diabetes History of congestive heart failure Hypertension Hypoxia Meningioma Morbidly obese Surgical History Status post appendectomy Status post cholecystectomy Family History Daughter No problems noted. Son No problems noted. Mother Diabetes mellitus Congestive heart failure Father Diabetes mellitus Social History household members: children Smoking Status: Never smoker Smoking Status: Never smoker alcohol intake frequency: holidays/special occasions only Substance Use Type: does not use and marijuana Exam Narrative Exam Narrative: General: Morbidly obese, in no acute distress. Able to give a complete and coherent history with slight dysarthria HEENT: Moist mucous membranes, normal sclera with reactive pupils, pupils are equal and reactive Neck: No JVD, supple Respiratory: Lungs are clear to auscultation, no wheezing no rales no rhonchi. Full and symmetrical air movement Cardiac: Regular rate and rhythm no murmurs no bruits Abdomen: Soft, obese, nontender good bowel tones, no flank pain Skin: Warm and dry, no rashes Neurologic: Mild dysarthria without aphasia no facial droop minor weakness left arm left leg no sensory abnormalities NIH=3 Extremities: No trauma, well perfused, chronic 2+ lower extremity edema without chronic venous stasis changes Psych: Cooperative, appropriate insight and affect Initial Vital Signs Initial Vital Signs: Vital Signs Pulse Rate 68 04/07/20 11:32 Respiratory Rate 16 04/07/20 11:32 Blood Pressure 189/99 H 04/07/20 11:32 Pulse Oximetry 90 L 04/07/20 11:32 Scores NIH Stroke Scale Level of Conciousness: Alert, keenly responsive Ask month/age: Answers both questions correctly. Open/close eyes, close hand: Performs both tasks correctly Best gaze horizontal: Normal Visual ramirez: No visual loss Facial palsy: Normal symetrical movement Left arm drift: Drifts down, not to bed Right arm drift: No drift for full 10 sec Left leg drift: Drifts down, not to bed Right leg drift: No drift for full 5 sec Limb ataxia: Absent Sensory on face/arms/legs: Normal, no sensory loss Best language: No aphasia, normal Dysarthria: Mild to mod,some slurring Extinction or inattention: No abnormality Total NIH Stroke scale score: 3 Course Orders Ordered: ED Orders 04/07/20 11:38 CT Stroke Stat 04/07/20 11:45 Complete Blood Count AUTO DIFF Stat Comprehensive Metabolic Panel Stat Partial Thromboplastin Time Stat Prothrombin Time INR Stat 04/07/20 12:06 EKG-12 Lead Stat 04/07/20 12:09 CT angio head and neck Stat 04/07/20 12:24 Urine Culture Stat Urine Microscopic Stat Sodium Chloride (Normal Saline 0.9%) 1,000 mls @ 150 mls/hr IV CONT KARTHIKEYAN Last Admin: 04/07/20 12:54 Dose: 150 mls/hr Documented by: SHIRA Discontinued Medications Levetiracetam 1,500 mg/ Sodium (Chloride) 115 mls @ 460 mls/hr IV NOW ONE Stop: 04/07/20 15:33 Vital Signs Vital signs: Vital Signs - 8 hr 04/07/20 11:32 04/07/20 11:34 04/07/20 12:06 Pulse Rate 68 68 67 Respiratory Rate 16 28 H Blood Pressure 189/99 H Pulse Oximetry 90 L 100 98 04/07/20 12:30 04/07/20 12:40 04/07/20 12:43 Pulse Rate 61 61 62 Respiratory Rate 17 Blood Pressure 237/104 H 219/93 H Pulse Oximetry 98 98 98 04/07/20 13:00 04/07/20 13:01 04/07/20 13:30 Pulse Rate 59 L 58 L 70 Respiratory Rate 28 H 27 H Blood Pressure 208/86 H 212/88 H Pulse Oximetry 98 98 98 04/07/20 14:00 04/07/20 14:30 04/07/20 15:00 Pulse Rate 63 64 62 Respiratory Rate 21 25 H 20 Blood Pressure 203/86 H 188/81 H 176/74 H Pulse Oximetry 98 99 99 MDM - Neuro Symptoms/Deficit Medical Records Attestation: I reviewed the patient's medical records. Lab Data Attestation: I reviewed the patient's lab results. Result diagrams: 04/07/20 11:45 04/07/20 11:45 Labs: Lab Results 04/07/20 04/07/20 04/07/20 Range/Units 11:45 11:45 11:45 WBC 6.8 (4.5-11.0) X10^3/uL RBC 4.52 (4.0-5.2) X10^6/uL Hgb 11.2 L (12.0-16.0) g/dL Hct 36.0 (36-46) % MCV 79.8 L (80-100) fL MCH 24.7 L (26-34) PG MCHC 31.0 (30-36) % RDW 17.2 H (11.6-14.8) % Plt Count 305 (150-400) X10^3/uL Neut % (Auto) 62.6 (50-75) % Lymph % (Auto) 27.5 (25-40) % Lyman % (Auto) 5.3 (3-14) % Eos % (Auto) 3.6 (2-4) % Baso % (Auto) 1.0 (0-2) % Neut # (Auto) 4300 (3442-2033) /uL Lymph # (Auto) 1900 (6178-4132) /uL Lyman # (Auto) 400 (0-900) /uL Eos # (Auto) 200 (0-450) /uL Baso # (Auto) 100 (0-100) /uL PT 11.6 (10.1-12.7) SECONDS INR 1.0 (0.9-1.3) APTT 33 (26.4-36.2) SECONDS Sodium 141 (137-145) mmol/L Potassium 3.9 (3.4-5.1) mmol/L Chloride 103 (98-107) mmol/L Carbon Dioxide 31 (22-32) mmol/L BUN 19 H (7-17) mg/dL Creatinine 0.77 (0.52-1.04) mg/dL Estimated GFR > 60.0 (>60) mL/min BUN/Creatinine Ratio 24.7 H (6-22) Glucose 117 H (70-100) mg/dL Calcium 9.6 (8.4-10.2) mg/dL Total Bilirubin 0.4 (0.2-1.3) mg/dL AST 22 (14-36) IU/L ALT 30 (<35) IU/L Alkaline Phosphatase 97 (38-126) U/L Total Protein 8.5 H (6.3-8.2) g/dL Albumin 4.4 (3.5-5.0) g/dL Globulin 4.1 (1.7-4.1) g/dL Albumin/Globulin Ratio 1.1 (1.0-2.8) Urine RBC (0-5/HPF) Urine WBC (0-5/HPF) Ur Squamous Epith Cells (0-5/HPF) Amorphous Sediment Urine Bacteria (None) Ur Culture Indicated? 04/07/20 Range/Units 12:24 WBC (4.5-11.0) X10^3/uL RBC (4.0-5.2) X10^6/uL Hgb (12.0-16.0) g/dL Hct (36-46) % MCV (80-100) fL MCH (26-34) PG MCHC (30-36) % RDW (11.6-14.8) % Plt Count (150-400) X10^3/uL Neut % (Auto) (50-75) % Lymph % (Auto) (25-40) % Lyman % (Auto) (3-14) % Eos % (Auto) (2-4) % Baso % (Auto) (0-2) % Neut # (Auto) (8396-2476) /uL Lymph # (Auto) (3460-2429) /uL Lyman # (Auto) (0-900) /uL Eos # (Auto) (0-450) /uL Baso # (Auto) (0-100) /uL PT (10.1-12.7) SECONDS INR (0.9-1.3) APTT (26.4-36.2) SECONDS Sodium (137-145) mmol/L Potassium (3.4-5.1) mmol/L Chloride (98-107) mmol/L Carbon Dioxide (22-32) mmol/L BUN (7-17) mg/dL Creatinine (0.52-1.04) mg/dL Estimated GFR (>60) mL/min BUN/Creatinine Ratio (6-22) Glucose (70-100) mg/dL Calcium (8.4-10.2) mg/dL Total Bilirubin (0.2-1.3) mg/dL AST (14-36) IU/L ALT (<35) IU/L Alkaline Phosphatase (38-126) U/L Total Protein (6.3-8.2) g/dL Albumin (3.5-5.0) g/dL Globulin (1.7-4.1) g/dL Albumin/Globulin Ratio (1.0-2.8) Urine RBC 1-5/hpf (0-5/HPF) Urine WBC 5-10/hpf H (0-5/HPF) Ur Squamous Epith Cells 1-5 /hpf (0-5/HPF) Amorphous Sediment 1+ Urine Bacteria Many (>30) H (None) Ur Culture Indicated? Specimen cultured Urine Dip Bedside Urine Glucose Negative Bedside Urine Bilirubin - Negative Bedside Urine Ketone - Negative Urine Specific [place] 1.015 Bedside Urine Occult Blood +/- Bedside Urine pH 6.5 Bedside Urine Protein - Negative Bedside Urine Urobilinogen - Negative Bedside Urine Nitrite - Negative Bedside Urine Leukocytes - Negative Esterase Imaging Data CT scan - head: Radiologist's Impression: FINDINGS: Image quality: Excellent. CSF spaces: Basal cisterns are patent. No extra-axial fluid collections. The ventricles are symmetric in size and shape. Brain: There is redemonstration of hyper dense extra-axial left temporal mass, measuring 3.7 x 2.3 cm, which is grossly unchanged to minimally increased since 05/27/18. Associated mass effect with minimal rightward midline shift as before, measuring 4 mm. There is also partial effacement of the left lateral recess. Elsewhere, no acute hemorrhage is seen. There is cerebral volume loss for age, with resultant ventricular and sulcal prominence. There are periventricular and deep white matter chronic small vessel ischemic changes. There is intracranial internal carotid artery atherosclerosis. Skull and face: Calvarium and visualized facial bones appear intact, without suspicious lesions. Sinuses: Visualized sinuses and mastoids are clear. IMPRESSION: Redemonstrated hyperdense left temporal extra-axial mass, which is grossly unchanged to minimally increased since the prior study dated 05/27/18. Associated rightward midline shift and partial effacement of the left lateral recess is grossly unchanged. Elsewhere, no acute hemorrhage. Findings were personally telephoned and discussed with Dr. Castillo in the emergency department at 1220 hours on 04/07/20. This study fulfills neurological imaging criteria for inclusion or exclusion of acute stroke therapies based on available published neurological guidelines. Dictated by: Grupo Vences M.D. on 04/07/2020 at 12:13 CTA: Radiologist's Impression: FINDINGS: Image quality: Excellent. BRAIN: CSF spaces: Ventricles are normal in size and shape. Basal cisterns are patent. No extra-axial fluid collections. Brain: There is a large, homogeneously enhancing extra-axial mass in the left frontotemporal parietal area measuring 4.3 cm AP x 2.8 cm transverse and 4.8 cm cephalocaudal, demonstrating interval enlargement since 05/27/2018 (previously 3.5 x 2.3 by 3.7 cm. There is mass effect to adjacent brain parenchyma with effacement of cerebral sized poly and partial effacement of the left lateral ventricle. Hypodensity of the left hemisphere is likely secondary to cerebral edema. There is 4 mm rightward midline shift.. No intracranial bleeds. East-white matter interface appears intact. Skull and face: Calvarium and facial bones appear intact, without suspicious lesions. Orbits appear normal. Sinuses: Sinuses and mastoids are clear. HEAD CT ANGIOGRAPHY: Anterior circulation: Intracranial internal carotid arteries are normal in size and flow. The flow within the paired anterior cerebral arteries is normal and symmetric. The flow within the middle cerebral arteries is normal and symmetric. The anterior communicating artery is seen. No aneurysms are seen. Posterior circulation: Visualized portions of the vertebral arteries demonstrate normal caliber, and join to form a normal appearing basilar artery. Flow within the posterior cerebral arteries is normal and symmetric. No aneurysms are seen. NECK CT ANGIOGRAPHY: Carotid system: The great vessels demonstrate a conventional anatomy as they arise from the aortic arch. The origins of the common carotid arteries appear patent. The common carotid arteries demonstrate normal caliber and courses. The bifurcation regions are both widely patent. Calcified plaques are seen at the carotid bifurcations and cavernous segment of internal carotid arteries bilaterally. The internal carotid arteries demonstrate normal calibers and courses. Posterior circulation: The origins of the vertebral arteries both appear widely patent. The more superior extracranial portions of both vertebral arteries also demonstrate normal courses and calibers. They join to form a normal appearing basilar artery. Soft tissues: Visualized neck soft tissues demonstrate no suspicious abnormalities. Bones: There are degenerative changes in cervical spine. There is posterior fusion in the upper thoracic spine. No suspicious bony lesions. Visualized cervical spine appears normally aligned. IMPRESSION: 1. There is enlargement for a large extra-axial mass on the left, which demonstrates homogeneous enhancement compatible with a large meningioma. There is mass effect causing effacement of cerebral sulci in the left hemisphere and partial effacement of the left lateral ventricle. A 4 mm rightward midline shift is present. 2. No findings to suggest acute stroke. 3. No large vessel occlusion or high-grade stenosis. Any quantitative measurements of stenosis were performed using NASCET criteria. Dictated by: Glory Knox M.D. on 04/07/2020 at 12:39 ECG Data Attestation: I personally reviewed and interpreted this ECG as follows: Interpretation: Sinus rhythm at a rate of 65 Normal interval, normal axis Poor R-wave progression No acute ischemic changes MDM Narrative Medical decision making narrative: 59-year-old woman with a large extra-axial mass in the left frontotemporal parietal area that seems to be enlarging since comparison May of 2018 with slightly increased mass effect. She had an episode this morning with dysarthria and some word-finding difficulty at 7:30 a.m.. Waxing and waning symptoms over the next couple of hours. When she was seen initially in the emergency department there is some slight heaviness appreciated in the left arm and left leg with continued mild dysarthria. CT scan does not show any acute hemorrhage 2pm call to [facility] to confirm bed availability 325pm call with Fernando Vences, neurologist at [facility]. In reviewing clinical care and CT findings he suggested that this may have been a seizure. He recommended 1500 g of IV Keppra and discussion with Neurosurgery. 337 Dr Hansen Neurosurgery Will contact patient via zoom appointment for pre-op and schedule her for urgent but not emergent surgical recision of the enlarging meningioma. Discharge Plan Departure Patient Disposition: Home Clinical Impression: Meningioma, Seizure Instructions: DI for Seizure (Not Epilepsy/Seizure Disorder) Activity Restrictions/Additional Instructions: Thank you for coming in today I suspect that you had a small seizure this morning to cause the difficulty with speech. I reviewed your CT scans with both Neurology and Neurosurgery at [facility] today. Your meningioma, the growth inside your head, is growing and likely is contributing to the seizures that you are having. You do need to have this removed, sooner rather than later. The neurosurgeon I spoke with is Dr. Hansen. His nurse will be contacting you to set up a tele video appointment in the next couple of days and you will be scheduled for surgery in the near future. To prevent any additional seizures, I am going to ask you to increase your levetiracetam to a 1000 mg in the morning and a 1000 mg at night (2 pills in the morning 2 pills at night) and I did write this change on your pill bottle so it is easier to remember. If you have worsening symptoms or other complaints, please feel free to return to the emergency department Prescriptions: No Action carvedilol 25 mg Tablet 25 mg PO BID RF: 0 levetiracetam 500 mg tablet 500 mg PO BID RF: 0 hydralazine 25 mg tablet 25 mg PO TID RF: 0 nystatin 100,000 unit/gram powder 1 applic topical [id number] RF: 0 potassium chloride 10 mEq tablet,ER particles/crystals 10 meq PO DAILY RF: 0 furosemide 40 mg tablet 20 mg PO DAILY RF: 0 insulin lispro 100 unit/mL solution 10 units subcut 3-4XD PRN (Reason: Hyperglycemia) RF: 0 gabapentin 300 mg capsule 300 mg PO TID RF: 0 losartan 100 mg tablet 100 mg PO DAILY RF: 0 Spiriva with HandiHaler 18 mcg capsule, w/inhalation device 1 cap INHALATION DAILY RF: 0 Referrals: Nato Lin MD [Primary Care Provider] -
[2020-04-07 11:53] LABS: PTT Partial Thromboplastin Tim 33 SECONDS (26.4-36.2)
[2020-04-07 11:55] LABS: Alanine Aminotransferase 30 IU/L (<35); Albumin 4.4 g/dL (3.5-5.0); Albumin Globulin Ratio 1.1 (1.0-2.8); Alkaline Phosphatase 97 U/L (38-126); Aspartate Aminotransferase 22 IU/L (14-36); BUN Creatinine Ratio 24.7 (6-22); Bilirubin Total 0.4 mg/dL (0.2-1.3); Blood Urea Nitrogen 19 mg/dL (7-17); Calcium 9.6 mg/dL (8.4-10.2); Carbon Dioxide 31 mmol/L (22-32); Chloride 103 mmol/L (98-107); Estimated Glomerular Filt Rate > 60.0 mL/min (>60); Globulin 4.1 g/dL (1.7-4.1); Glucose 117 mg/dL (70-100); HEMOLYSIS < 15 (0-50); Potassium 3.9 mmol/L (3.4-5.1); Sodium 141 mmol/L (137-145); Total Protein 8.5 g/dL (6.3-8.2)
--- NOTE | 2020-04-07 12:09 | DI.CT.S_ITS ---
PROCEDURE: CT ANGIO HEAD AND NECK INDICATIONS: stroke symptoms TECHNIQUE: Pre-contrast 4.5 mm thick sections acquired from the foramen magnum to the vertex. After the administration of intravenous contrast, 1 mm thick sections acquired from the aortic arch through the [place] of [place]. Post-contrast 4.5 mm thick sections then re-acquired from the foramen magnum to the vertex. 3-dimensional [id number] (MIP) and/or volume rendering reformats were acquired of the central intracranial vasculature and neck separately. COMPARISON: [facility], CT, CT HEAD/BRAIN WO CON, 04/22/2018, 12:13. [facility], CT, CT HEAD/BRAIN WO CON, 05/26/2018, 11:31. [facility], CT, CT STROKE, 04/07/2020, 11:51. [facility], CT, CT ANGIO HEAD AND NECK, 05/27/2018, 18:35. FINDINGS: Image quality: Excellent. BRAIN: CSF spaces: Ventricles are normal in size and shape. Basal cisterns are patent. No extra-axial fluid collections. Brain: There is a large, homogeneously enhancing extra-axial mass in the left frontotemporal parietal area measuring 4.3 cm AP x 2.8 cm transverse and 4.8 cm cephalocaudal, demonstrating interval enlargement since 05/27/2018 (previously 3.5 x 2.3 by 3.7 cm. There is mass effect to adjacent brain parenchyma with effacement of cerebral sized poly and partial effacement of the left lateral ventricle. Hypodensity of the left hemisphere is likely secondary to cerebral edema. There is 4 mm rightward midline shift.. No intracranial bleeds. East-white matter interface appears intact. Skull and face: Calvarium and facial bones appear intact, without suspicious lesions. Orbits appear normal. Sinuses: Sinuses and mastoids are clear. HEAD CT ANGIOGRAPHY: Anterior circulation: Intracranial internal carotid arteries are normal in size and flow. The flow within the paired anterior cerebral arteries is normal and symmetric. The flow within the middle cerebral arteries is normal and symmetric. The anterior communicating artery is seen. No aneurysms are seen. Posterior circulation: Visualized portions of the vertebral arteries demonstrate normal caliber, and join to form a normal appearing basilar artery. Flow within the posterior cerebral arteries is normal and symmetric. No aneurysms are seen. NECK CT ANGIOGRAPHY: Carotid system: The great vessels demonstrate a conventional anatomy as they arise from the aortic arch. The origins of the common carotid arteries appear patent. The common carotid arteries demonstrate normal caliber and courses. The bifurcation regions are both widely patent. Calcified plaques are seen at the carotid bifurcations and cavernous segment of internal carotid arteries bilaterally. The internal carotid arteries demonstrate normal calibers and courses. Posterior circulation: The origins of the vertebral arteries both appear widely patent. The more superior extracranial portions of both vertebral arteries also demonstrate normal courses and calibers. They join to form a normal appearing basilar artery. Soft tissues: Visualized neck soft tissues demonstrate no suspicious abnormalities. Bones: There are degenerative changes in cervical spine. There is posterior fusion in the upper thoracic spine. No suspicious bony lesions. Visualized cervical spine appears normally aligned. IMPRESSION: 1. There is enlargement for a large extra-axial mass on the left, which demonstrates homogeneous enhancement compatible with a large meningioma. There is mass effect causing effacement of cerebral sulci in the left hemisphere and partial effacement of the left lateral ventricle. A 4 mm rightward midline shift is present. 2. No findings to suggest acute stroke. 3. No large vessel occlusion or high-grade stenosis. Any quantitative measurements of stenosis were performed using NASCET criteria. Dictated by: Glory Knox M.D. on 04/07/2020 at 12:39 Approved by: Glory Knox M.D. on 04/07/2020 at 13:16
[2020-04-07 12:49] LABS: Amorphous Sediment Urine 1+; Bacteria Urine Many (>30); Culture Indicated Urine Specimen Cultured; RBC Urine 1-5/HPF (0-5/HPF); Squamous Epithelial Cell Urine 1-5 /HPF (0-5/HPF); WBC Urine 5-10/HPF (0-5/HPF)
[2020-04-07] MEDS: SODIUM CHLORIDE 0.9% 1,000 ML 150 ML IV (12:54)
[2020-04-07] MEDS: levETIRAcetam 1,500 MG in SODIUM CHLORIDE 0.9% 100 ML 460 ML IV (15:35)
== END 2020-04-07 17:35 | disposition home or self-care (01) ==
PROVIDERS: Emergency Provider Emergency Medicine; PCP Family Medicine
DX: D32.9 Benign neoplasm of meninges, unspecified (principal); R56.9 Unspecified convulsions; R47.81 Slurred speech; J44.9 Chronic obstructive pulmonary disease, unspecified; I50.9 Heart failure, unspecified; I10 Essential (primary) hypertension; E66.01 Morbid (severe) obesity due to excess calories; Z68.43 Body mass index [BMI] 50.0-59.9, adult
CPT/HCPCS: 36415; 70450; 70496; 70498; 80053; 81003; 81015; 85025; 85610; 85730; 87077; 87086; 87147; 87186; 93005; 93010; 96361; 96365; 99284; J1953; Q9967

== ENCOUNTER 2020-05-16 12:45 | Emergency (ER) | payer OTHER, MEDICAID, SELFPAY ==
[2018-10-20 17:30] VITALS: BMI 44.6
[2020-05-16] VITALS (24 sets, daily range): BP systolic 145–199; BP diastolic 65–84; PULSE 54–67; RESP 13–27; TEMP 36.8; O2SAT 92–100
--- NOTE | 2020-05-16 12:45 | DI.CT.S_ITS ---
PROCEDURE: CT STROKE INDICATIONS: code stroke TECHNIQUE: Noncontrast 4.5 mm thick angled axial sections acquired from the foramen magnum to the vertex, with coronal reformats. For radiation dose reduction, the following was used: automated exposure control, adjustment of mA and/or kV according to patient size. COMPARISON: [facility], CT, CT STROKE, 04/07/2020, 11:51. FINDINGS: Image quality: Excellent. Patient is status post cranioplasty and resection of previously noted left sided meningioma. Along the surgical bed there is a small amount of subarachnoid hemorrhage as well as a small amount of heterogeneous extra-axial fluid collection. There is adjacent edema which extends transcortical E and within the subcortical white matter within the posterior frontal and parietal lobes. No additional regions of metz-white matter differentiation loss. There is mild mass effect on the adjacent lateral ventricles. No evidence of herniation. There is adjacent soft tissue edema and surgical skin caesar. Imaged orbits are intact. Paranasal sinuses are clear. IMPRESSION: Postsurgical changes of left frontoparietal cranioplasty with resection of meningioma. There is a small amount of subarachnoid and extra-axial fluid collection along the resection site along with edema which extends cortically. These findings may all be within normal limits given recent surgical history. Mild mass effect on the adjacent lateral ventricle without herniation. Findings discussed with the ordering provider Dr. Hanley over the telephone by Dr. Octaviano Deshpande at approximately 12:15 p.m. Hours [place] Standard time on 05/16/2020. This study fulfills neurological imaging criteria for inclusion or exclusion of acute stroke therapies based on available published neurological imaging guidelines. Dictated by: Octaviano Deshpande D.O. on 05/16/2020 at 12:09 Approved by: Octaviano Deshpande D.O. on 05/16/2020 at 12:20
--- NOTE | 2020-05-16 13:03 | ED_ITS ---
HPI - Neuro Symptoms/Deficit General Chief Complaint: Neuro Symptoms/Deficit Stated Complaint: Slurred speech Time Seen by Provider: 05/16/20 12:45 Source: patient and EMS Mode of arrival: EMS Limitations: no limitations History of Present Illness HPI Narrative: Patient is a 59-year-old female. On May 07, 2020 patient had a tumor removed from the left side of her brain by Dr Hansen with neurosurgery at [facility] in [place]. Patient has multiple other medical problems to include insulin-dependent diabetes. She also has a history of COPD and is on 2 L by nasal cannula at baseline. She was at home today approximately 1 hour prior to arrival here in the emergency department when she was sitting having lunch with her son when it was reported that she had a sudden slurring of her words. The patient states that she did feel like she was slurring her words but she thinks that it is better now. She has no complaints except that she is hungry during my initial evaluation. Her son is not currently at bedside to provide any HPI. 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 On Anticoagulants: No Related Data Home Medications Medication Instructions Recorded Confirmed carvedilol 25 mg PO BID 09/20/18 05/16/20 potassium chloride 10 meq PO BID 09/20/18 05/16/20 insulin lispro 10 units SUBCUT 3-4XD PRN 10/10/18 05/16/20 gabapentin 300 mg PO TID 04/07/20 05/16/20 losartan 100 mg PO QAM 04/07/20 05/16/20 tiotropium bromide [Spiriva with 1 cap INHALATION QAM 04/07/20 05/16/20 HandiHaler] acetaminophen 650 mg PO Q4H PRN 05/16/20 05/16/20 amlodipine 10 mg PO QAM 05/16/20 05/16/20 dexamethasone 4 mg PO TID 05/16/20 05/16/20 famotidine 20 mg PO BID 05/16/20 05/16/20 ferrous sulfate 324 mg PO QAM 05/16/20 05/16/20 furosemide 20 mg PO QAM PRN 05/16/20 05/16/20 levetiracetam 750 mg PO BID 05/16/20 05/16/20 oxycodone 2.5 - 5 mg PO Q6H PRN 05/16/20 05/16/20 oxygen-air delivery systems 05/16/20 05/16/20 Previous Rx's Medication Instructions Recorded hydralazine 25 mg PO TID #90 tab 04/07/20 Allergies Allergy/AdvReac Type Severity Reaction Status Date / Time naproxen Allergy Mild MADE MY Verified 05/16/20 12:59 FACE NUMB meperidine Allergy Unknown Verified 05/16/20 12:59 Penicillins Allergy Unknown Verified 05/16/20 12:59 Sulfa (Sulfonamide Allergy Unknown Verified 05/16/20 12:59 Antibiotics) diphenhydramine AdvReac Shakiness Verified 05/16/20 12:59 [From Benadryl] Review of Systems Constitutional Constitutional: Denies fatigue, Denies fever(s) and Denies headache(s) Eyes Eyes: Denies blurry vision, Denies change in vision and Denies diplopia ENT Ears, Nose, Mouth, and Throat: Denies vertigo, Denies headache(s) and Denies sore throat Cardiovascular Cardiovascular: Denies chest pain and Denies dyspnea Respiratory Respiratory: Denies dyspnea Gastrointestinal Gastrointestinal: Denies abdominal pain, Denies nausea and Denies vomiting Genitourinary Genitourinary: Denies dysuria Genitourinary: Denies dysuria Musculoskeletal Musculoskeletal: Denies arthralgias, Denies myalgias and Denies tingling Integumentary/Breasts Skin/Breast: Denies lesions and Denies rash Comments: Surgical incision left-sided scalp without complaints Neurologic Neurologic: Reports abnormal speech, Denies confusion, Denies vertigo, Denies dizziness, Denies headache(s), Denies localized weakness and Denies tingling Psychiatric Psychiatric: Denies anxiety and Denies confusion Endocrine Endocrine: Denies fatigue Hematologic/Lymphatic On Anticoagulants: No Allergic/Immunologic Allergic/Immunologic: Denies urticaria Patient History Medical History (Updated 05/16/20 @ 16:02 by Neftali Monzon DO) Chronic respiratory failure COPD (chronic obstructive pulmonary disease) Diabetes History of congestive heart failure Hypertension Hypoxia Meningioma Morbidly obese Surgical History Status post appendectomy Status post cholecystectomy Family History Daughter No problems noted. Son No problems noted. Mother Diabetes mellitus Congestive heart failure Father Diabetes mellitus Social History household members: children Smoking Status: Never smoker Smoking Status: Never smoker alcohol intake frequency: holidays/special occasions only Substance Use Type: does not use and marijuana Exam Initial Vital Signs Initial Vital Signs: Vital Signs Temperature 98.2 F 05/16/20 12:57 Blood Pressure 146/66 H 05/16/20 12:57 Const General: cooperative, comfortable and well developed Limitations: mental status not altered HENMT Head: other (Surgical incision left-sided scalp consistent with stated history) Ears: hearing grossly normal bilaterally Eyes Pupils: PERRL EOM: EOM intact bilaterally Resp Effort & Inspection: normal respiratory effort Auscultation: clear to auscultation bilaterally Cardio Rate: regular rate Rhythm: regular rhythm GI Inspection: non-distended Palpation: soft Skin Lesions: no lesions Rashes: no rashes Other: Surgical incision left-sided Neuro General: patient awake and patient oriented x3 Cognition: normal cognition Speech: abnormal speech (Slow speech with some slurring) Sensory Exam: no sensory deficits noted Coordination: [id number] test normal Extrem General: capillary refill normal Psych Appearance: grossly normal and well kempt Scores GCS Deena coma scale eye opening: Spontaneous Deena coma scale verbal response: Orientated [place] coma scale motor response: Obey commands [place] coma scale total score: 15 NIH Stroke Scale Level of Conciousness: Alert, keenly responsive Ask month/age: Answers both questions correctly. Open/close eyes, close hand: Performs both tasks correctly Best gaze horizontal: Normal Visual ramirez: No visual loss Facial palsy: Normal symetrical movement Left arm drift: No drift for full 10 sec Right arm drift: No drift for full 10 sec Left leg drift: Some effort against gravity, cannot maintain, drifts down to bed (Patient reports this is not new) Right leg drift: Drifts down, not to bed Limb ataxia: Absent Sensory on face/arms/legs: Normal, no sensory loss Best language: Mild to moderate, slurs some words Dysarthria: Mild to mod,some slurring Extinction or inattention: No abnormality Total NIH Stroke scale score: 5 Course Orders Ordered: ED Orders 05/16/20 12:45 CT Stroke Stat 05/16/20 12:47 EKG-12 Lead Stat 05/16/20 12:55 COVID19 Stat 05/16/20 13:00 Complete Blood Count AUTO DIFF Stat Comprehensive Metabolic Panel Stat Ethanol (ETOH) Stat Lipase Stat Partial Thromboplastin Time Stat Prolactin Stat Prothrombin Time INR Stat Troponin & CK Cardiac Panel Stat 05/16/20 13:41 CT head/brain w con Stat 05/16/20 13:45 [place] [facility] [place] Stat Discontinued Medications Dexamethasone (Dexamethasone 10 Mg/Ml Vial) 10 mg IV NOW ONE Stop: 05/16/20 15:21 Last Admin: 05/16/20 15:35 Dose: 10 mg Documented by: SHIRA Vital Signs Vital signs: Vital Signs - 8 hr 05/16/20 12:57 05/16/20 12:58 05/16/20 13:00 Temperature 98.2 F Pulse Rate 59 L 61 Respiratory Rate 19 21 Blood Pressure 146/66 H Pulse Oximetry 05/16/20 13:01 05/16/20 13:10 05/16/20 13:15 Temperature Pulse Rate 59 L 59 L 59 L Respiratory Rate 16 15 17 Blood Pressure 145/67 H 162/81 H 159/71 H Pulse Oximetry 100 100 05/16/20 13:30 05/16/20 13:45 05/16/20 14:03 Temperature Pulse Rate 54 L 55 L 63 Respiratory Rate 22 24 Blood Pressure 156/71 H 168/76 H Pulse Oximetry 100 100 05/16/20 14:05 05/16/20 14:15 05/16/20 14:30 Temperature Pulse Rate 60 57 L 60 Respiratory Rate 27 H 25 H 25 H Blood Pressure 154/69 H 146/65 H 151/70 H Pulse Oximetry 100 100 100 05/16/20 14:45 05/16/20 15:00 05/16/20 15:15 Temperature Pulse Rate 58 L 66 61 Respiratory Rate 21 19 13 Blood Pressure 151/70 H 186/79 H 167/72 H Pulse Oximetry 100 100 100 05/16/20 15:30 05/16/20 15:45 05/16/20 16:00 Temperature Pulse Rate 58 L 59 L 65 Respiratory Rate 18 14 20 Blood Pressure 167/76 H 160/72 H 167/77 H Pulse Oximetry 100 100 99 05/16/20 16:15 05/16/20 16:30 05/16/20 16:45 Temperature Pulse Rate 64 62 67 Respiratory Rate 24 22 24 Blood Pressure 166/79 H 159/70 H 166/77 H Pulse Oximetry 100 99 97 05/16/20 17:00 05/16/20 17:15 Temperature Pulse Rate 64 67 Respiratory Rate 24 18 Blood Pressure 178/84 H 199/84 H Pulse Oximetry 92 97 MDM - Neuro Symptoms/Deficit Medical Records Attestation: I reviewed the patient's medical records. Lab Data Attestation: I reviewed the patient's lab results. Result diagrams: 05/16/20 13:00 05/16/20 13:00 Labs: Lab Results 05/16/20 05/16/20 05/16/20 Range/Units 12:55 13:00 13:00 WBC 11.1 H (4.5-11.0) X10^3/uL RBC 4.19 (4.0-5.2) X10^6/uL Hgb 10.5 L (12.0-16.0) g/dL Hct 33.8 L (36-46) % MCV 80.7 (80-100) fL MCH 25.1 L (26-34) PG MCHC 31.1 (30-36) % RDW 18.2 H (11.6-14.8) % Plt Count 234 (150-400) X10^3/uL Neut % (Auto) 80.4 H (50-75) % Lymph % (Auto) 11.6 L (25-40) % [place] % (Auto) 6.2 (3-14) % Eos % (Auto) 1.4 L (2-4) % Baso % (Auto) 0.4 (0-2) % Neut # (Auto) 8900 H (7009-9267) /uL Lymph # (Auto) 1300 (4885-0326) /uL [place] # (Auto) 700 (0-900) /uL Eos # (Auto) 200 (0-450) /uL Baso # (Auto) 0 (0-100) /uL PT 11.5 (10.1-12.7) SECONDS INR 1.0 (0.9-1.3) APTT 26 L D (26.4-36.2) SECONDS Sodium (137-145) mmol/L Potassium (3.4-5.1) mmol/L Chloride (98-107) mmol/L Carbon Dioxide (22-32) mmol/L BUN (7-17) mg/dL Creatinine (0.52-1.04) mg/dL Estimated GFR (>60) mL/min BUN/Creatinine Ratio (6-22) Glucose (70-100) mg/dL Calcium (8.4-10.2) mg/dL Total Bilirubin (0.2-1.3) mg/dL AST (14-36) IU/L ALT (<35) IU/L Alkaline Phosphatase (38-126) U/L Total Creatine Kinase (30-135) U/L CK-MB (CK-2) CK-MB (CK-2) Rel Index Troponin I (0.01-0.034) ng/mL Total Protein (6.3-8.2) g/dL Albumin (3.5-5.0) g/dL Globulin (1.7-4.1) g/dL Albumin/Globulin Ratio (1.0-2.8) Lipase (23-300) U/L Prolactin (3.0-18.6) ng/mL Ethyl Alcohol ( - 10) mg/dL SARS-CoV-2 (PCR) Negative (Negative) 05/16/20 05/16/20 05/16/20 Range/Units 13:00 13:00 13:00 WBC (4.5-11.0) X10^3/uL RBC (4.0-5.2) X10^6/uL Hgb (12.0-16.0) g/dL Hct (36-46) % MCV (80-100) fL MCH (26-34) PG MCHC (30-36) % RDW (11.6-14.8) % Plt Count (150-400) X10^3/uL Neut % (Auto) (50-75) % Lymph % (Auto) (25-40) % [place] % (Auto) (3-14) % Eos % (Auto) (2-4) % Baso % (Auto) (0-2) % Neut # (Auto) (0370-7211) /uL Lymph # (Auto) (2026-9830) /uL [place] # (Auto) (0-900) /uL Eos # (Auto) (0-450) /uL Baso # (Auto) (0-100) /uL PT Cancelled (10.1-12.7) SECONDS INR Cancelled (0.9-1.3) APTT (26.4-36.2) SECONDS Sodium 137 (137-145) mmol/L Potassium 4.0 (3.4-5.1) mmol/L Chloride 98 (98-107) mmol/L Carbon Dioxide 39 H (22-32) mmol/L BUN 29 H (7-17) mg/dL Creatinine 0.86 (0.52-1.04) mg/dL Estimated GFR > 60.0 (>60) mL/min BUN/Creatinine Ratio 33.7 H (6-22) Glucose 83 (70-100) mg/dL Calcium 8.8 (8.4-10.2) mg/dL Total Bilirubin 0.4 (0.2-1.3) mg/dL AST 24 (14-36) IU/L ALT 79 H (<35) IU/L Alkaline Phosphatase 67 (38-126) U/L Total Creatine Kinase 38 (30-135) U/L CK-MB (CK-2) TNP CK-MB (CK-2) Rel Index TNP Troponin I < 0.012 (0.01-0.034) ng/mL Total Protein 6.6 (6.3-8.2) g/dL Albumin 3.7 (3.5-5.0) g/dL Globulin 2.9 (1.7-4.1) g/dL Albumin/Globulin Ratio 1.3 (1.0-2.8) Lipase 283 (23-300) U/L Prolactin 18.3 (3.0-18.6) ng/mL Ethyl Alcohol < 10 ( - 10) mg/dL SARS-CoV-2 (PCR) (Negative) Point of Care Testing Glucose POC [address] scan head with contrast: Radiologist's Impression: [address] [id number] Scan ReportSigned Patient: Rocío Enriquez KMR#: [id number]: 2Acct:[id number]/Sex: 59 / FDate of Service: 05/16/20Loc: EDAccession Number: [id number] Procedure: CT head/brain w con Ordering Provider: Neftali Monzon D.O. PROCEDURE: CT HEAD/BRAIN W CON INDICATIONS: requested by neurosurgery S/P tumor removal TECHNIQUE: 4.5 mm thick angled axial sections acquired from the foramen magnum to the vertex after the administration of intravenous contrast, with coronal and sagittal reformats. For radiation dose reduction, the following was used: automated exposure control, adjustment of mA and/or kV according to patient size. COMPARISON: [facility], CT, CT ANGIO HEAD AND NECK, 04/07/2020, 11:51. [facility], CT, CT STROKE, 05/16/2020, 12:47. [facility], CT, CT STROKE, 04/07/2020, 11:51. FINDINGS: Image quality: Excellent. From recent same day CT noncontrast head there is no significant change in appearance of postoperative appearance of left frontal parietal cranioplasty. There is no significant masslike enhancement to suggest residual tumor. There is increased vascularity at the resection site. There is adjacent edema and small amount of likely subacute to chronic blood products as noted on recent examination. There is adjacent soft tissue swelling without soft tissue focal fluid collection. The imaged vasculature is patent without evidence of significant stenosis, aneurysm, or other vascular abnormality. Transcortical and sub cortical edema is unchanged. Unchanged mild mass effect on the lateral ventricle. IMPRESSION: Postsurgical changes of meningioma resection status post left frontoparietal cranioplasty. There is increased vascularity along the resection site without residual enhancing mass lesion. Dictated by: Octaviano Deshpande D.O. on 05/16/2020 at 13:25 Approved by: Octaviano Deshpande D.O. on 05/16/2020 at 13:35 CT scan - head: Radiologist's Impression: Postsurgical changes of the left frontal parietal cranioplasty with resection of meningioma. There is a small amount of subarachnoid an extra-axial fluid collection along the resection site along with edema which extends quarterly. These findings male be within normal limits give n recent surgical history. Mild mass effect on the adjacent lateral ventricle without herniation. ECG Data Attestation: I personally reviewed and interpreted this ECG as follows: Prior ECG tracings: not available for review Interpretation: Sinus bradycardia Ventricular rate of 58 Normal axis Normal QRS Normal QTC No ST T wave changes MDM Narrative Medical decision making narrative: Patient arrived 10 days after having craniotomy for tumor removal. Review of the noncontrast head CT with the radiologist states that there was swelling and small amount of bleeding in the area her unsure if this is new or postsurgical. The images were sent to [facility] and I did discuss the case with Dr. Pyle with neuro surgery who requested a CT scan with contrast. The CT scan was then obtained and again sent to the [facility]. During this time the patient's [id number] arrived in the emergency department was able to provide more history. She states that the patient's speech currently is better than what it was earlier today however is worse than what it was yesterday. She states that the patient's speech is much more slow and there is some slurring of the words. We also discovered that the patient has not been taking her Decadron since she has been discharged from the hospital. This is because the pharmacy did not have this medication. She has been taking her Keppra and other medications as directed. Further discussion with Neurosurgery at [facility] lead to a final decision of transferring the patient to their facility for further evaluation and treatment. I did discuss this with the patient. Decadron was given here in the ER per neurosurgery request. Dr. Pyle stated that accepting physician will be Dr. Lucia. I did discuss the transfer with the patient and her [id number] who is at bedside. They both expressed unders tanding agreement. Patient is stable for transport. Discharge Plan Departure Patient Disposition: [facility] Clinical Impression: Dysarthria, Post surgical complication Prescriptions: No Action carvedilol 25 mg Tablet 25 mg PO BID RF: 0 potassium chloride 10 mEq tablet,ER particles/crystals 10 meq PO BID RF: 0 insulin lispro 100 unit/mL solution 10 units subcut 3-4XD PRN (Reason: Hyperglycemia) RF: 0 gabapentin 300 mg capsule 300 mg PO TID RF: 0 losartan 100 mg tablet 100 mg PO QAM RF: 0 Spiriva with HandiHaler 18 mcg capsule, w/inhalation device 1 cap INHALATION QAM RF: 0 hydralazine 25 mg tablet 25 mg PO TID Qty: 90 RF: 3 famotidine 20 mg Tablet 20 mg PO BID RF: 0 amlodipine 10 mg tablet 10 mg PO QAM RF: 0 levetiracetam 750 mg Tablet 750 mg PO BID RF: 0 ferrous sulfate 324 mg (65 mg iron) Tablet,Delayed Release (Dr/Ec) 324 mg PO QAM RF: 0 furosemide 20 mg Tablet 20 mg PO QAM PRN (Reason: Edema) RF: 0 oxycodone 5 mg Tablet 2.5 - 5 mg PO Q6H PRN (Reason: Pain (Scale Score 7-10)) RF: 0 acetaminophen 325 mg Capsule 650 mg PO Q4H PRN (Reason: Pain, Moderate) RF: 0 dexamethasone 1 mg Tablet 4 mg PO TID RF: 0 (DME) oxygen-air delivery systems Device MISCELLANEOUS RF: 0 Referrals: Nato Lin MD [Primary Care Provider] -
[2020-05-16 13:14] LABS: Add Manual Diff / Slide Review NO; Basophils Absolute Auto 0 /uL (0-100); Basophils Percent Auto 0.4 % (0-2); Eosinophils Absolute Auto 200 /uL (0-450); Eosinophils Percent Auto 1.4 % (2-4); Hematocrit 33.8 % (36-46); Hemoglobin 10.5 g/dL (12.0-16.0); Lymphocytes Absolute Auto 1300 /uL (1100-4500); Lymphocytes Percent Auto 11.6 % (25-40); Mean Corpuscular HGB Conc 31.1 % (30-36); Mean Corpuscular Hemoglobin 25.1 PG (26-34); Mean Corpuscular Volume 80.7 fL (80-100); Monocytes Absolute Auto 700 /uL (0-900); Monocytes Percent Auto 6.2 % (3-14); Neutrophils Absolute Auto 8900 /uL (1500-7000); Neutrophils Percent Auto 80.4 % (50-75); Platelet Count 234 X10^3/uL (150-400); Red Blood Cell Count 4.19 X10^6/uL (4.0-5.2); Red Cell Distribution Width 18.2 % (11.6-14.8); White Blood Cell Count 11.1 X10^3/uL (4.5-11.0)
[2020-05-16 13:22] LABS: Prothrombin Time 11.5 SECONDS (10.1-12.7)
[2020-05-16 13:25] LABS: PTT Partial Thromboplastin Tim 26 SECONDS (26.4-36.2)
[2020-05-16 13:26] LABS: Alanine Aminotransferase 79 IU/L (<35); Albumin 3.7 g/dL (3.5-5.0); Albumin Globulin Ratio 1.3 (1.0-2.8); Alkaline Phosphatase 67 U/L (38-126); Aspartate Aminotransferase 24 IU/L (14-36); BUN Creatinine Ratio 33.7 (6-22); Bilirubin Total 0.4 mg/dL (0.2-1.3); Blood Urea Nitrogen 29 mg/dL (7-17); Calcium 8.8 mg/dL (8.4-10.2); Carbon Dioxide 39 mmol/L (22-32); Chloride 98 mmol/L (98-107); Creatine Kinase 38 U/L (30-135); Estimated Glomerular Filt Rate > 60.0 mL/min (>60); Ethanol (ETOH) < 10 mg/dL; Globulin 2.9 g/dL (1.7-4.1); Glucose 83 mg/dL (70-100); HEMOLYSIS < 15 (0-50); Lipase 283 U/L (23-300); Sodium 137 mmol/L (137-145); Total Protein 6.6 g/dL (6.3-8.2)
[2020-05-16 13:29] LABS: COVID19 -Nasal RAPID Negative (Negative)
[2020-05-16 13:38] LABS: Troponin I < 0.012 ng/mL (0.01-0.034)
--- NOTE | 2020-05-16 13:41 | DI.CT.S_ITS ---
PROCEDURE: CT HEAD/BRAIN W CON INDICATIONS: requested by neurosurgery S/P tumor removal TECHNIQUE: 4.5 mm thick angled axial sections acquired from the foramen magnum to the vertex after the administration of intravenous contrast, with coronal and sagittal reformats. For radiation dose reduction, the following was used: automated exposure control, adjustment of mA and/or kV according to patient size. COMPARISON: [facility], CT, CT ANGIO HEAD AND NECK, 04/07/2020, 11:51. [facility], CT, CT STROKE, 05/16/2020, 12:47. [facility], CT, CT STROKE, 04/07/2020, 11:51. FINDINGS: Image quality: Excellent. From recent same day CT noncontrast head there is no significant change in appearance of postoperative appearance of left frontal parietal cranioplasty. There is no significant masslike enhancement to suggest residual tumor. There is increased vascularity at the resection site. There is adjacent edema and small amount of likely subacute to chronic blood products as noted on recent examination. There is adjacent soft tissue swelling without soft tissue focal fluid collection. The imaged vasculature is patent without evidence of significant stenosis, aneurysm, or other vascular abnormality. Transcortical and sub cortical edema is unchanged. Unchanged mild mass effect on the lateral ventricle. IMPRESSION: Postsurgical changes of meningioma resection status post left frontoparietal cranioplasty. There is increased vascularity along the resection site without residual enhancing mass lesion. Dictated by: Octaviano Deshpande D.O. on 05/16/2020 at 13:25 Approved by: Octaviano Deshpande D.O. on 05/16/2020 at 13:35
[2020-05-16 13:42] LABS: Prolactin 18.3 ng/mL (3.0-18.6)
--- NOTE | 2020-05-16 13:46 | PC.NURSE ---
Called son to check on pt's home medications as she is a poor historian. Son (who is POA) states that the dexamethasone was not ready and they were planning on picking up today. Pt has not had dexamethasone since 05/13/20 @ [facility]. They also state that the hydralozine has not been picked up as well.
--- NOTE | 2020-05-16 14:46 | CM.SWNOTE ---
[employer] note [employer] consult requested for patient. Patient is a 59 y/o female who presents to ED via EMS for stated complaint of slurred speech. On 05/07/20, patient had large brain tumor removed at [facility] in [place]. Per verbal report from Dr. Monzon, one of the medications patient was prescribed post d/c had not pick filled/picked up? SEAL[employer] enters room and meets with patient. Patient is A+O x3, and volunteers that she does not know all the details of her medications. Patient explains that her daughter in law, Mary Ann, has been her caregiver since surgery. I have the best care in the world patient states. Patient reports she has been living with Mary Ann since the surgery. Patient explains that she is engaged with [facility] and that PT has been to her home since d/c from [facility]. Patient reports she will be getting PT, OT, RN, and bathing services through [facility]. [employer] inquires about medication pickup and patient asks [employer] to direct this question to Mary Ann when she arrives at ED. When Mary Ann arrives, SEALER AIRCRAFT asks Mary Ann about medication that had not been filled. Mary Ann reports that the pharmacy had to order the prescription and that she is able to pick it up today. [employer] inquires about additional needs and Mary Ann asks about a wheelchair for patient. SE[employer]ER [employer]CRAFT refers Mary Ann to [facility], and Mary Ann states she is familiar with and knows how to access medical equipment through [facility]. Patient, Mary Ann deny additional needs from [employer] at this time. SEALER AIRCRAFT updates Dr. Monzon. Patient to continue course of care while in ED. LISSETT Jiménez
[2020-05-16] MEDS: DEXAMETHASONE 10 MG/ML VIAL IV (15:35)
== END 2020-05-16 17:46 | disposition short-term general hospital (02) ==
PROVIDERS: Emergency Provider Emergency Medicine; PCP Family Medicine
DX: R47.1 Dysarthria and anarthria (principal); T81.9XXA Unspecified complication of procedure, initial encounter; R07.9 Chest pain, unspecified; J44.9 Chronic obstructive pulmonary disease, unspecified; E11.8 Type 2 diabetes mellitus with unspecified complications; Z79.4 Long term (current) use of insulin; I10 Essential (primary) hypertension; Z20.822 Contact with and (suspected) exposure to COVID-19
CPT/HCPCS: 36415; 70450; 70460; 80053; 80320; 82550; 82962; 83690; 84146; 84484; 85025; 85610; 85730; 87635; 93005; 96374; 99284; 99285; C9803; J1100; Q9967

== ENCOUNTER → 2020-07-21 12:45 | Outpatient (ROUT) | payer OTHER, MEDICAID, SELFPAY ==
[2018-10-20 17:30] VITALS: BMI 44.6
[2020-07-21 13:01] LABS: Appearance Urine UA CLEAR; Bilirubin Urine UA NEGATIVE (NEGATIVE); Color Urine UA YELLOW; Glucose Urine UA NEGATIVE (Negative); Ketones Urine UA NEGATIVE (NEGATIVE); Leukocyte Esterase Urine UA NEGATIVE (NEGATIVE); Nitrite Urine UA NEGATIVE (Negative); Occult Blood Urine UA NEGATIVE (Negative); Protein Urine UA NEGATIVE (Negative); Urobilinogen Urine UA 0.2 E.U./dL (0.2)
[2020-07-21 13:05] LABS: pH Urine UA 5.5 (4.5-8.0)
[2020-07-21 13:26] LABS: Bacteria Urine Many (>30); RBC Urine 0-1/HPF (0-5/HPF); Squamous Epithelial Cell Urine 5-10 /HPF (0-5/HPF); WBC Urine 1-5/HPF (0-5/HPF)
[2020-07-21 13:27] LABS: Culture Indicated Urine Cult Not Indicated
== END ==
PROVIDERS: PCP Family Medicine; Visit Provider Family Medicine
DX: N39.0 Urinary tract infection, site not specified (principal)
CPT/HCPCS: 81001

== ENCOUNTER → 2022-03-21 10:07 | Outpatient (CLI) | payer MEDICARE, MEDICAID, SELFPAY ==
[2018-10-20 17:30] VITALS: BMI 44.6
== END ==
PROVIDERS: PCP Family Medicine; Referring Provider Family Medicine; Visit Provider Surgery
DX: I87.2 Venous insufficiency (chronic) (peripheral) (principal); I89.0 Lymphedema, not elsewhere classified; L97.821 Non-pressure chronic ulcer of other part of left lower leg limited to breakdown of skin; L97.811 Non-pressure chronic ulcer of other part of right lower leg limited to breakdown of skin; E11.622 Type 2 diabetes mellitus with other skin ulcer; E11.59 Type 2 diabetes mellitus with other circulatory complications; M79.605 Pain in left leg; M79.604 Pain in right leg; R60.0 Localized edema; L53.9 Erythematous condition, unspecified
CPT/HCPCS: 29581; 87070; 87075; 87077; 87186; 87205; 99204; 99213

== ENCOUNTER → 2022-03-23 15:21 | Outpatient (CLI) | payer MEDICARE, MEDICAID, SELFPAY ==
[2018-10-20 17:30] VITALS: BMI 44.6
== END ==
PROVIDERS: PCP Family Medicine; Referring Provider Family Medicine; Visit Provider Surgery
DX: I87.2 Venous insufficiency (chronic) (peripheral) (principal); L97.821 Non-pressure chronic ulcer of other part of left lower leg limited to breakdown of skin; L97.811 Non-pressure chronic ulcer of other part of right lower leg limited to breakdown of skin; R60.0 Localized edema; L53.9 Erythematous condition, unspecified
CPT/HCPCS: 99213

== ENCOUNTER 2022-07-02 20:01 | Inpatient (IN) | payer OTHER, MEDICAID, SELFPAY ==
[2018-10-20 17:30] VITALS: BMI 44.6
[2022-07-02] VITALS (17 sets, daily range): BP systolic 73–134; BP diastolic 29–101; PULSE 61–97; RESP 13–29; TEMP 36.4–36.6; O2SAT 95–100; BMI 45.8
--- NOTE | 2022-07-02 | DI.CT.S_ITS ---
PROCEDURE: CT ANGIO CHEST PE PROTOCOL INDICATIONS: sepsis, hx of osteo, chronic resp failure TECHNIQUE: After the administration of intravenous contrast, 2 mm thick sections acquired from the pulmonary apices to the posterior costophrenic angles. 3-dimensional maximum intensity projection (MIP) coronal and sagittal reformats were then acquired through the thorax. For radiation dose reduction, the following was used: automated exposure control, adjustment of mA and/or kV according to patient size. COMPARISON: [facility], CT, CT ANGIO CHEST PE PROTOCOL, 10/27/2018, 18:53. FINDINGS: Image quality: Limited by very large body habitus and also metallic artifact from extensive prior spine stabilization procedure through the thoracic spine.. Pulmonary arteries: Pulmonary arteries where well visualized are normal in size, and demonstrate no intraluminal filling defects to suggest central pulmonary embolism. There are many sites along the course of the pulmonary arteries where metallic streak artifact from the extensive spine stabilization devices cross the pulmonary arteries and render accurate assessment for presence or absence of pulmonary embolus very limited. Lungs and pleura: Lungs are free of dense focal pneumonia, but the inspiratory volume is reduced and the body habitus is very large and quality of visualization of the lung parenchyma is limited.. No pleural effusions or pneumothorax. Central and peripheral airways are patent. Mediastinum: Heart size is normal, without pericardial effusion. No mediastinal or hilar adenopathy. Thoracic aorta is normal in caliber and enhancement. Esophagus is normal in caliber, without hiatal hernia. Bones and chest wall: No suspicious bony lesions. Ribs and thoracic spine appear intact throughout. Thyroid gland is not well seen No axillary or supraclavicular adenopathy. Abdomen: Visualized upper abdominal solid organs appear normal in the early arterial phase of enhancement. IMPRESSION: Quality of visualization is very limited by body habitus and extensive metal artifact from fixation devices spanning much of the thoracic spine. The metal artifact produces reduced radiodensity through the areas of streak artifact which intersect multiple pulmonary arteries. Therefore this study is considered suboptimal and follow-up by elective pulmonary angiogram also would be a potential alternative method for attempting to detect pulmonary embolus. Dictated by: Xander Hopkins M.D. on 07/02/2022 at 23:12 Approved by: Xander Hopkins M.D. on 07/02/2022 at 23:18
--- NOTE | 2022-07-02 20:05 | DI.RAD.S_ITS ---
PROCEDURE: XR CHEST 1V INDICATIONS: suspected sepsis TECHNIQUE: One view of the chest was acquired. COMPARISON: [facility], CT, CT ANGIO HEAD AND NECK, 06/06/2020, 9:52. [facility], CR, XR CHEST 1V, 10/27/2018, 17:04. [facility], CR, XR CHEST FOR PICC 1V, 10/23/2018, 13:30. FINDINGS: Surgical changes and devices: None. Lungs and pleura: Quality of visualization is significantly limited by very large body habitus and prominently reduced inspiratory volume. Lungs are relatively poorly seen but a definite pneumonia is not found.. No pleural effusions or pneumothorax. Mediastinum: Mediastinal contours appear normal. Heart size is normal. Bones and chest wall: No suspicious bony lesions. Overlying soft tissues appear unremarkable. Extensive spine fusion procedure appears to have been performed. IMPRESSION: Very limited study as discussed, extensive prior spine fusion procedure. No definite pneumonia seen. Dictated by: Xander Hopkins M.D. on 07/02/2022 at 20:51 Approved by: Xander Hopkins M.D. on 07/02/2022 at 20:53
--- NOTE | 2022-07-02 20:06 | DI.CT.S_ITS ---
PROCEDURE: CT HEAD/BRAIN WO CON INDICATIONS: multiple falls in last 24 hours. h/o brain frieda w/ resection TECHNIQUE: Noncontrast 4.5 mm thick angled axial sections acquired from the foramen magnum to the vertex, with coronal and sagittal reformats. For radiation dose reduction, the following was used: automated exposure control, adjustment of mA and/or kV according to patient size. COMPARISON: [facility], CT, CT HEAD/BRAIN WO CON, 05/26/2018, 11:31. [facility], CT, CT HEAD/BRAIN WO CON, 05/14/2018, 10:46. FINDINGS: Image quality: Excellent. CSF spaces: Basal cisterns are patent. No extra-axial fluid collections. Ventricles are normal in size and shape. Brain: No midline shift. Mild encephalomalacia beneath the area of prior left temporal craniotomy not present during CT scanning 05/26/18 No intracranial masses or hemorrhage. East-white matter interface is normal. Skull and face: Calvarium and visualized facial bones are intact, without suspicious lesions. Sinuses: Visualized sinuses and mastoids are clear. IMPRESSION: No acute disease. Prior left temporal craniotomy, with mild associated underlying encephalomalacia. Dictated by: Xander Hopkins M.D. on 07/02/2022 at 20:53 Approved by: Xander Hopkins M.D. on 07/02/2022 at 20:55
--- NOTE | 2022-07-02 20:13 | ED_ITS ---
HPI - General Adult General Chief complaint: Fall Stated complaint: fall w/ bed sores. Time Seen by Provider: 07/02/22 20:06 History of Present Illness HPI narrative: 61-year-old female nonsmoker with history of COPD on home oxygen, meningioma, CHF presents by EMS for evaluation of multiple falls in the past day or 2 and generalized weakness. She states that she is had a poor appetite and has not been drinking much along with having multiple episodes of diarrhea. She had been on antibiotics for bilateral lower extremity cellulitis for about 2 weeks, she states her legs look much better but overall she feels terrible. She denies any headache or blurred vision. She denies any injuries as a consequence of her fall. She is been slightly nauseated but denies any vomiting. She denies any chest pain or worsening shortness of breath. EMS states that she has required their assistance for multiple falls over the past 2 days and though the family is trying their best they are very clearly unable to care for her at home under these conditions. Related Data Home Medications Medication Instructions Recorded Confirmed carvedilol 25 mg tablet 25 mg PO BID 09/20/18 05/16/20 potassium chloride 10 mEq 10 meq PO BID 09/20/18 05/16/20 tablet,extended release(part/cryst) insulin lispro 100 unit/mL 10 units SUBCUT 3-4XD PRN 10/10/18 05/16/20 subcutaneous solution Hyperglycemia gabapentin 300 mg capsule 300 mg PO TID 04/07/20 05/16/20 losartan 100 mg tablet 100 mg PO QAM 04/07/20 05/16/20 tiotropium bromide 18 mcg capsule 1 cap inhalation QAM 04/07/20 05/16/20 with inhalation device (Spiriva with HandiHaler) acetaminophen 325 mg capsule 650 mg PO Q4H PRN Pain, Moderate 05/16/20 05/16/20 amlodipine 10 mg tablet 10 mg PO QAM 05/16/20 05/16/20 dexamethasone 1 mg tablet 4 mg PO TID 05/16/20 05/16/20 famotidine 20 mg tablet 20 mg PO BID 05/16/20 05/16/20 ferrous sulfate 324 mg (65 mg 324 mg PO QAM 05/16/20 05/16/20 iron) tablet,delayed release furosemide 20 mg tablet 20 mg PO QAM PRN Edema 05/16/20 05/16/20 levetiracetam 750 mg tablet 750 mg PO BID 05/16/20 05/16/20 oxycodone 5 mg tablet 2.5 - 5 mg PO Q6H PRN Pain (Scale 05/16/20 05/16/20 Score 7-10) oxygen-air delivery systems 05/16/20 05/16/20 Previous Rx's Medication Instructions Recorded hydralazine 25 mg tablet 25 mg PO TID #90 tabs 04/07/20 Allergies Allergy/AdvReac Type Severity Reaction Status Date / Time naproxen Allergy Mild MADE MY Verified 05/16/20 12:59 FACE NUMB meperidine Allergy Unknown Verified 05/16/20 12:59 Penicillins Allergy Unknown Verified 05/16/20 12:59 Sulfa (Sulfonamide Allergy Unknown Verified 05/16/20 12:59 Antibiotics) diphenhydramine AdvReac Shakiness Verified 05/16/20 12:59 [From [facility]] Review of Systems Review of Systems Narrative: GENERAL: See HPI HEENT: Denies sinus pain, ear pain, sore throat, difficulty swallowing, dizziness. RESPIRATORY: Denies dyspnea, cough, wheezing, hemoptysis, sputum. CARDIOVASCULAR: Denies chest pain, palpitations, orthopnea, edema, GASTROINTESTINAL: Denies nausea, vomiting, abdominal pain, diarrhea, constipation, melena. : Denies dysuria, frequency, incontinence, hematuria, urinary retention. MUSCULOSKELETAL: See HPI SKIN: Denies rash, skin lesions, or other NEUROLOGIC: See HPI PSYCHIATRIC: No concerning psychosocial issues. 12 point review of systems is negative except for those stated above Patient History Medical History (Updated 07/03/22 @ 01:16 by Gaurav White DO) Bilateral lower extremity edema Chronic respiratory failure COPD (chronic obstructive pulmonary disease) Diabetes History of cellulitis History of congestive heart failure Hypertension Hypoxia Meningioma Morbidly obese Personal history of osteomyelitis Surgical History (Updated 07/02/22 @ 22:35 by SHAKIRA Decker) History of craniotomy Status post appendectomy Status post cholecystectomy Family History Daughter No problems noted. Son No problems noted. Mother Diabetes mellitus Congestive heart failure Father Diabetes mellitus Social History household members: children Smoking Status: Never smoker Smoking Status: Never smoker alcohol intake frequency: holidays/special occasions only Substance Use Type: does not use and marijuana Exam Narrative Exam Narrative: GENERAL: [61] year old patient appears older than stated age. Patient alert and oriented with GCS 15, generally unwell HEAD: Atraumatic. Normocephalic. EYES: Pupils equal round and reactive. Extraocular motions intact. No scleral icterus. No injection or drainage. ENT: Dry mucous membranes Nose without bleeding, purulent drainage. Throat without erythema, tonsillar hypertrophy or exudate. Airway patent. NECK: Trachea midline. Non tender CARDIOVASCULAR: Regular rate and rhythm without murmurs, gallops, or rubs. RESPIRATORY: Decreased breath sounds bilaterally with prolonged expiratory phase, no obvious rales or rhonchi GASTROINTESTINAL: Abdomen soft, non-tender, nondistended. EXTREMITIES: No edema or joint tenderness. Bilateral lower extremities with evidence of chronic venous stasis and scaling of the skin, there is [id number] erythema which patient states is significantly improved over when she had recently been diagnosed with cellulitis BACK: Nontender without deformity or crepitance. No flank tenderness. NEURO: AOx3. SKIN: Poor skin turgor large amount of warm erythematous skin on buttocks and right flank Initial Vital Signs Initial Vital Signs: Vital Signs Pulse Rate 74 07/02/22 20:03 Pulse Oximetry 100 07/02/22 20:03 Course Orders Ordered: ED Orders 07/02/22 20:05 XR chest 1V Stat EKG-12 Lead Stat RT Consult Eval and Treat NOW 07/02/22 20:06 CT head/brain wo con Stat 07/02/22 20:10 GI Panel (Film Array) Stat 07/02/22 20:15 BNP [NT-proBNP (BNP-Adult 18+)] Stat Complete Blood Count AUTO DIFF Stat Comprehensive Metabolic Panel Stat Lactate (Lactic Acid) Stat Lipase Stat PTT Partial Thromboplastin Brian Stat Procalcitonin Stat Prothrombin Time INR Stat Troponin & CK Cardiac Panel Stat 07/02/22 20:36 Covid-19 + FLU A/B + RSV - PCR Stat 07/02/22 21:21 Creatinine Urine Random Stat Sodium Urine Random Stat 07/02/22 21:30 Blood Culture Stat Acetaminophen (Acetaminophen 325 Mg Tablet) 650 mg PO Q6H PRN PRN Reason: Fever/Mild Pain (1-3) Calcium Carbonate (Calcium Carbonate 500 Mg Tab) 1,000 mg PO Q4HR PRN PRN Reason: Dyspepsia Dextrose (Dextrose 50 % In Water 25 Gm/50 Ml Syringe) 25 gm IV PRN PRN PRN Reason: Hypoglycemia Enoxaparin Sodium (Enoxaparin 30 Mg/0.3 Ml Syringe) 30 mg SUBCUT DAILY [facility] Ferrous Sulfate (Ferrous Sulfate 325 Mg Tablet) 325 mg PO DAILY [facility] Gabapentin (Gabapentin 300 Mg Capsule) 300 mg PO TID [facility] Sodium Chloride (Normal Saline 0.9%) 1,000 mls @ 60 mls/hr IV CONT [facility] Ceftriaxone Sodium 1,000 mg/ (Sodium Chloride) 100 mls @ 200 mls/hr IV Q24H [facility] Vancomycin HCl (Vancomycin) 1,000 mg in 200 mls @ 200 mls/hr IV Q24H [facility] Vancomycin HCl/Dextrose (Vancomycin) 1,500 mg in 300 mls @ 200 mls/hr IV Q24H [facility] Last Admin: 07/03/22 00:18 Dose: 200 mls/hr Documented By: CT Insulin Human Lispro (Insulin Lispro 100 Unit/Ml 3ml Vial) 0 unit SUBCUT ACHS [facility]; Protocol Ipratropium [place] (Ipratropium 0.5 Mg/2.5 Ml Neb) 0.5 mg INH [id number] [facility] Last Admin: 07/02/22 23:52 Dose: 0.5 mg Documented By: SHERYL Ipratropium [place] (Ipratropium 0.5 Mg/2.5 Ml Neb) 0.5 mg INH Q2HR PRN PRN Reason: Shortness Of Breath Levetiracetam (Levetiracetam 250 Mg Tablet) 750 mg PO BID [facility] Last Admin: 07/03/22 00:30 Dose: 750 mg Documented By: CT Naloxone HCl (Naloxone 0.4 Mg/Ml Vial) 0.2 mg IV Q2MIN PRN PRN Reason: Opiate Reversal Nystatin (Nystatin Powder 15gm) 1 applic TOP TID PRN PRN Reason: Rash Ondansetron HCl (Ondansetron 4 Mg/2 Ml Inj) 4 mg IV NOW PRN PRN Reason: Nausea And Vomiting Ondansetron HCl (Ondansetron 4 Mg/2 Ml Inj) 4 mg IV Q4HR PRN PRN Reason: Nausea And Vomiting Potassium Chloride (Potassium Chloride 10 Meq Tab) 10 meq PO BID KARTHIKEYAN Discontinued Medications Sodium Chloride (Normal Saline 0.9%) 1,000 mls @ 1,000 mls/hr IV BOLUS ONE Stop: 07/02/22 21:04 Last Admin: 07/02/22 22:15 Dose: 1,000 mls/hr Documented By: ADRIAN Sodium Chloride (Normal Saline 0.9%) 1,000 mls @ 1,000 mls/hr IV BOLUS ONE Stop: 07/02/22 21:09 Last Admin: 07/02/22 20:15 Dose: Not Given Documented By: KLS Sodium Chloride (Normal Saline 0.9%) 1,000 mls @ 1,000 mls/hr IV BOLUS ONE Stop: 07/02/22 22:07 Last Admin: 07/02/22 21:30 Dose: 1,000 mls/hr Documented By: BS Ceftriaxone Sodium 2,000 mg/ (Sodium Chloride) 100 mls @ 200 mls/hr IV NOW ONE Stop: 07/02/22 21:09 Last Infusion: 07/02/22 22:18 Dose: 0 mls/hr Documented By: Admin: 07/02/22 21:30 Dose: 200 mls/hr Documented By: ADRIAN Vancomycin HCl/Dextrose (Vancomycin) 1,500 mg in 300 mls @ 200 mls/hr IV NOW ONE Stop: 07/03/22 00:29 Sodium Chloride (Normal Saline 0.9%) 1,000 mls @ 1,000 mls/hr IV BOLUS ONE Stop: 07/03/22 00:59 Last Admin: 07/03/22 00:30 Dose: 1,000 mls/hr Documented By: CT Ipratropium [place] (Ipratropium 0.5 Mg/2.5 Ml Neb) 0.5 mg INH RTQ4HR KARTHIKEYAN Non-Formulary Medication (Ferrous Sulfate) 324 mg PO QAM KARTHIKEYAN Non-Formulary Medication (Tiotropium [place] [Spiriva With Handihaler]) 1 cap INHALATION QAM KARTHIKEYAN Non-Formulary Medication (Potassium Chloride) 10 meq PO BID KARTHIKEYAN Vancomycin HCl (Vancomycin Per Pharmacy) 1 request MISC NOW ONE Stop: 07/02/22 22:16 Vital Signs Vital signs: Vital Signs - 8 hr 07/02/22 20:16 07/02/22 20:56 07/02/22 20:03 Temperature 97.6 F Pulse Rate 71 74 Respiratory Rate 20 Blood Pressure 130/100 H 111/50 L Pulse Oximetry 97 100 Oxygen Delivery Method Nasal Cannula Oxygen Flow Rate 2 07/02/22 20:04 07/02/22 20:04 07/02/22 21:00 Temperature Pulse Rate 70 61 Respiratory Rate 13 Blood Pressure 134/100 H Pulse Oximetry 100 Oxygen Delivery Method Oxygen Flow Rate 07/02/22 21:02 07/02/22 21:02 Temperature Pulse Rate 65 Respiratory Rate 14 Blood Pressure 117/51 L Pulse Oximetry 99 Oxygen Delivery Method Oxygen Flow Rate Medical Decision Making Lab Data 07/02/22 20:15 07/02/22 20:15 Labs: Lab Results 07/02/22 07/02/22 07/02/22 Range/Units 20:15 20:15 20:15 WBC 15.5 H (4.5-11.0) X10^3/uL RBC 3.88 L (4.0-5.2) X10^6/uL Hgb 9.2 L (12.0-16.0) g/dL Hct 30.1 L (36-46) % MCV 77.5 L (80-100) fL MCH 23.7 L (26-34) PG MCHC 30.5 (30-36) % RDW 18.5 H (11.6-14.8) % Plt Count 418 H (150-400) X10^3/uL Neut % (Auto) 89.8 H (50-75) % Lymph % (Auto) 4.9 L (25-40) % Emery % (Auto) 4.2 (3-14) % Eos % (Auto) 0.0 L (2-4) % Baso % (Auto) 1.1 (0-2) % Neut # (Auto) 31421 H (0754-3227) /uL Lymph # (Auto) 800 L (4036-6839) /uL Emery # (Auto) 700 (0-900) /uL Eos # (Auto) 0 (0-450) /uL Baso # (Auto) 200 H (0-100) /uL ESR (0-20) MM/HR PT 14.0 H (10.1-12.7) SECONDS INR 1.2 (0.9-1.3) APTT 26 (26-36) SECONDS Sodium 137 (137-145) mmol/L Potassium 4.1 (3.4-5.1) mmol/L Chloride 104 (98-107) mmol/L Carbon Dioxide 26 (22-32) mmol/L BUN 33 H (7-17) mg/dL Creatinine 1.38 H (0.52-1.04) mg/dL Estimated GFR 44 L (>60) mL/min BUN/Creatinine Ratio 23.9 H (6-22) Glucose 123 H (80-110) mg/dL Hemoglobin A1c (4.0-6.0) % Lactate (0.7-2.1) mmol/L Calcium 8.3 L (8.4-10.2) mg/dL Magnesium (1.6-2.3) mg/dL Total Bilirubin 0.6 (0.2-1.3) mg/dL AST 38 H (14-36) IU/L ALT 36 H (<35) IU/L Alkaline Phosphatase 104 (38-126) U/L Total Creatine Kinase (30-135) U/L CK-MB (CK-2) (<2.37) ng/mL CK-MB (CK-2) Rel Index (1.5-5.0) % Troponin I (0.01-0.034) ng/mL C-Reactive Protein (<1.0) mg/dL NT-Pro-B Natriuret Pep (<125) pg/mL Total Protein 6.5 (6.3-8.2) g/dL Albumin 3.1 L (3.5-5.0) g/dL Globulin 3.4 (1.7-4.1) g/dL Albumin/Globulin Ratio 0.9 L (1.0-2.8) Lipase 14 L (23-300) U/L Procalcitonin 11.6 H (<0.5) ng/mL SARS-CoV-2 (PCR) (Negative) Influenza A (RT-PCR) (NEGATIVE) Influenza B (RT-PCR) (NEGATIVE) RSV (PCR) (Negative) 07/02/22 07/02/22 07/02/22 Range/Units 20:15 20:15 20:15 WBC (4.5-11.0) X10^3/uL RBC (4.0-5.2) X10^6/uL Hgb (12.0-16.0) g/dL Hct (36-46) % MCV (80-100) fL MCH (26-34) PG MCHC (30-36) % RDW (11.6-14.8) % Plt Count (150-400) X10^3/uL Neut % (Auto) (50-75) % Lymph % (Auto) (25-40) % Emery % (Auto) (3-14) % Eos % (Auto) (2-4) % Baso % (Auto) (0-2) % Neut # (Auto) (4239-9963) /uL Lymph # (Auto) (4557-5109) /uL Emery # (Auto) (0-900) /uL Eos # (Auto) (0-450) /uL Baso # (Auto) (0-100) /uL ESR (0-20) MM/HR PT (10.1-12.7) SECONDS INR (0.9-1.3) APTT (26-36) SECONDS Sodium (137-145) mmol/L Potassium (3.4-5.1) mmol/L Chloride (98-107) mmol/L Carbon Dioxide (22-32) mmol/L BUN (7-17) mg/dL Creatinine (0.52-1.04) mg/dL Estimated GFR (>60) mL/min BUN/Creatinine Ratio (6-22) Glucose (80-110) mg/dL Hemoglobin A1c (4.0-6.0) % Lactate 1.7 (0.7-2.1) mmol/L Calcium (8.4-10.2) mg/dL Magnesium 1.7 (1.6-2.3) mg/dL Total Bilirubin (0.2-1.3) mg/dL AST (14-36) IU/L ALT (<35) IU/L Alkaline Phosphatase (38-126) U/L Total Creatine Kinase 953 H (30-135) U/L CK-MB (CK-2) 7.78 H (<2.37) ng/mL CK-MB (CK-2) Rel Index 0.8 L (1.5-5.0) % Troponin I < 0.012 (0.01-0.034) ng/mL C-Reactive Protein (<1.0) mg/dL NT-Pro-B Natriuret Pep 758 H (<125) pg/mL Total Protein (6.3-8.2) g/dL Albumin (3.5-5.0) g/dL Globulin (1.7-4.1) g/dL Albumin/Globulin Ratio (1.0-2.8) Lipase (23-300) U/L Procalcitonin (<0.5) ng/mL SARS-CoV-2 (PCR) (Negative) Influenza A (RT-PCR) (NEGATIVE) Influenza B (RT-PCR) (NEGATIVE) RSV (PCR) (Negative) 07/02/22 07/02/22 07/02/22 Range/Units 20:15 20:15 20:15 WBC (4.5-11.0) X10^3/uL RBC (4.0-5.2) X10^6/uL Hgb (12.0-16.0) g/dL Hct (36-46) % MCV (80-100) fL MCH (26-34) PG MCHC (30-36) % RDW (11.6-14.8) % Plt Count (150-400) X10^3/uL Neut % (Auto) (50-75) % Lymph % (Auto) (25-40) % Emery % (Auto) (3-14) % Eos % (Auto) (2-4) % Baso % (Auto) (0-2) % Neut # (Auto) (3174-5477) /uL Lymph # (Auto) (2153-2841) /uL Emery # (Auto) (0-900) /uL Eos # (Auto) (0-450) /uL Baso # (Auto) (0-100) /uL ESR 65 H (0-20) MM/HR PT (10.1-12.7) SECONDS INR (0.9-1.3) APTT (26-36) SECONDS Sodium (137-145) mmol/L Potassium (3.4-5.1) mmol/L Chloride (98-107) mmol/L Carbon Dioxide (22-32) mmol/L BUN (7-17) mg/dL Creatinine (0.52-1.04) mg/dL Estimated GFR (>60) mL/min BUN/Creatinine Ratio (6-22) Glucose (80-110) mg/dL Hemoglobin A1c 6.5 H (4.0-6.0) % Lactate (0.7-2.1) mmol/L Calcium (8.4-10.2) mg/dL Magnesium (1.6-2.3) mg/dL Total Bilirubin (0.2-1.3) mg/dL AST (14-36) IU/L ALT (<35) IU/L Alkaline Phosphatase (38-126) U/L Total Creatine Kinase (30-135) U/L CK-MB (CK-2) (<2.37) ng/mL CK-MB (CK-2) Rel Index (1.5-5.0) % Troponin I (0.01-0.034) ng/mL C-Reactive Protein 8.5 H (<1.0) mg/dL NT-Pro-B Natriuret Pep (<125) pg/mL Total Protein (6.3-8.2) g/dL Albumin (3.5-5.0) g/dL Globulin (1.7-4.1) g/dL Albumin/Globulin Ratio (1.0-2.8) Lipase (23-300) U/L Procalcitonin (<0.5) ng/mL SARS-CoV-2 (PCR) (Negative) Influenza A (RT-PCR) (NEGATIVE) Influenza B (RT-PCR) (NEGATIVE) RSV (PCR) (Negative) 07/02/22 Range/Units 20:36 WBC (4.5-11.0) X10^3/uL RBC (4.0-5.2) X10^6/uL Hgb (12.0-16.0) g/dL Hct (36-46) % MCV (80-100) fL MCH (26-34) PG MCHC (30-36) % RDW (11.6-14.8) % Plt Count (150-400) X10^3/uL Neut % (Auto) (50-75) % Lymph % (Auto) (25-40) % Emery % (Auto) (3-14) % Eos % (Auto) (2-4) % Baso % (Auto) (0-2) % Neut # (Auto) (8889-4914) /uL Lymph # (Auto) (9034-0810) /uL Emery # (Auto) (0-900) /uL Eos # (Auto) (0-450) /uL Baso # (Auto) (0-100) /uL ESR (0-20) MM/HR PT (10.1-12.7) SECONDS INR (0.9-1.3) APTT (26-36) SECONDS Sodium (137-145) mmol/L Potassium (3.4-5.1) mmol/L Chloride (98-107) mmol/L Carbon Dioxide (22-32) mmol/L BUN (7-17) mg/dL Creatinine (0.52-1.04) mg/dL Estimated GFR (>60) mL/min BUN/Creatinine Ratio (6-22) Glucose (80-110) mg/dL Hemoglobin A1c (4.0-6.0) % Lactate (0.7-2.1) mmol/L Calcium (8.4-10.2) mg/dL Magnesium (1.6-2.3) mg/dL Total Bilirubin (0.2-1.3) mg/dL AST (14-36) IU/L ALT (<35) IU/L Alkaline Phosphatase (38-126) U/L Total Creatine Kinase (30-135) U/L CK-MB (CK-2) (<2.37) ng/mL CK-MB (CK-2) Rel Index (1.5-5.0) % Troponin I (0.01-0.034) ng/mL C-Reactive Protein (<1.0) mg/dL NT-Pro-B Natriuret Pep (<125) pg/mL Total Protein (6.3-8.2) g/dL Albumin (3.5-5.0) g/dL Globulin (1.7-4.1) g/dL Albumin/Globulin Ratio (1.0-2.8) Lipase (23-300) U/L Procalcitonin (<0.5) ng/mL SARS-CoV-2 (PCR) Negative (Negative) Influenza A (RT-PCR) Flu a negative (NEGATIVE) Influenza B (RT-PCR) Flu b negative (NEGATIVE) RSV (PCR) Negative (Negative) Point of Care Testing Glucose POC 123 Point of care testing: Point of Care Testing Glucose POC [address] scan - head: Radiologist's Impression: no acute process Chest x-ray: Radiologist's Impression: limited exam but no pneumonia Discharge Plan Departure Patient Disposition: Admitted As Inpatient Clinical Impression: Acute kidney injury, Weakness, Acute dehydration, Adult failure to thrive, Cellulitis Admit Date/Time: 07/02/22 21:20 Admit Provider: Brianne Olsen
[2022-07-02 20:26] LABS: Add Manual Diff / Slide Review NO; Basophils Absolute Auto 200 /uL (0-100); Basophils Percent Auto 1.1 % (0-2); Eosinophils Absolute Auto 0 /uL (0-450); Hematocrit 30.1 % (36-46); Hemoglobin 9.2 g/dL (12.0-16.0); Lymphocytes Absolute Auto 800 /uL (1100-4500); Lymphocytes Percent Auto 4.9 % (25-40); Mean Corpuscular HGB Conc 30.5 % (30-36); Mean Corpuscular Hemoglobin 23.7 PG (26-34); Mean Corpuscular Volume 77.5 fL (80-100); Monocytes Absolute Auto 700 /uL (0-900); Monocytes Percent Auto 4.2 % (3-14); Neutrophils Absolute Auto 13900 /uL (1500-7000); Neutrophils Percent Auto 89.8 % (50-75); Platelet Count 418 X10^3/uL (150-400); Red Blood Cell Count 3.88 X10^6/uL (4.0-5.2); Red Cell Distribution Width 18.5 % (11.6-14.8); White Blood Cell Count 15.5 X10^3/uL (4.5-11.0)
[2022-07-02 20:33] LABS: INR 1.2 (0.9-1.3)
[2022-07-02 20:36] LABS: PTT Partial Thromboplastin Tim 26 SECONDS (26-36)
[2022-07-02 20:37] LABS: Lactate (Lactic Acid) 1.7 mmol/L (0.7-2.1)
[2022-07-02 20:38] LABS: Alanine Aminotransferase 36 IU/L (<35); Albumin 3.1 g/dL (3.5-5.0); Albumin Globulin Ratio 0.9 (1.0-2.8); Alkaline Phosphatase 104 U/L (38-126); Aspartate Aminotransferase 38 IU/L (14-36); BUN Creatinine Ratio 23.9 (6-22); Bilirubin Total 0.6 mg/dL (0.2-1.3); Blood Urea Nitrogen 33 mg/dL (7-17); Calcium 8.3 mg/dL (8.4-10.2); Carbon Dioxide 26 mmol/L (22-32); Chloride 104 mmol/L (98-107); Estimated Glomerular Filt Rate 44 mL/min (>60); Globulin 3.4 g/dL (1.7-4.1); Glucose 123 mg/dL (80-110); HEMOLYSIS < 15 (0-50); Lipase 14 U/L (23-300); Potassium 4.1 mmol/L (3.4-5.1); Sodium 137 mmol/L (137-145); Total Protein 6.5 g/dL (6.3-8.2)
[2022-07-02 20:53] LABS: Creatine Kinase 953 U/L (30-135)
[2022-07-02 20:55] LABS: Procalcitonin 11.6 ng/mL (<0.5)
[2022-07-02 21:06] LABS: NT-proBNP (BNP-Adult 18+) 758 pg/mL (<125); Troponin I < 0.012 ng/mL (0.01-0.034)
[2022-07-02 21:08] LABS: CKMB % Relative Index 0.8 % (1.5-5.0); Creatine Kinase MB 7.78 ng/mL (<2.37)
[2022-07-02] MEDS: SODIUM CHLORIDE 0.9% 1,000 ML 1000 ML IV ×2 (21:30→22:15)
[2022-07-02] MEDS: cefTRIAXone 2,000 MG in SODIUM CHLORIDE 0.9% 100 ML 200 MG IV (21:30)
[2022-07-02 21:33] LABS: Bilirubin Urine UA NEGATIVE (NEGATIVE); Glucose Urine UA NEGATIVE (Negative); Ketones Urine UA NEGATIVE (NEGATIVE); Leukocyte Esterase Urine UA TRACE (NEGATIVE); Nitrite Urine UA NEGATIVE (Negative); Occult Blood Urine UA TRACE-INTACT (Negative); Protein Urine UA 1+ (Negative); Specific Gravity Urine UA 1.015 (1.000-1.035); Urobilinogen Urine UA 0.2 E.U./dL (0.2)
[2022-07-02 21:35] LABS: Appearance Urine UA CLOUDY; Color Urine UA LIGHT BROWN; pH Urine UA 8.5 (4.5-8.0)
[2022-07-02 21:47] LABS: Creatinine Urine Random 185.6 mg/dL; Sodium Urine Random 35 mmol/L (30-90)
[2022-07-02 21:52] LABS: Bacteria Urine Many (>30); Culture Indicated Urine Specimen Cultured; RBC Urine 1-5/HPF (0-5/HPF); WBC Urine 5-10/HPF (0-5/HPF)
--- NOTE | 2022-07-02 21:53 | P.HP_ITS ---
History of Present Illness History of Present Illness Date Patient Seen: 07/02/22 Time Patient Seen: 21:53 Chief complaint: fall w/ bed sores. Narrative: Rocío Enriquez ?is a 61-year-old female with PMH significant for chronic respiratory failure w/ hypoxia and O2 dependence (2L at baseline), COPD, HTN, CHF, iron-deficiency anemia, morbid obesity (BMI 45.9), recurrent UTIs, T6 osteomyelitis, chronic bilateral lower extremity edema, chronic lower extremity cellulitis, DM, and meningioma with left temporal lobe craniotomy.? Patient lives alone family has attempted to help manage her care at home but now exceeds their capability as she requires a significant amount of assistance, failure to thrive. She was brought into the ED following increased weakness over the past 2-3 days EMS had been called to the home multiple times due to frequent falls from increased weakness, suffered episodes of diarrhea secondary to antibiotics (x2 weeks keflex, recently completed) for the LE cellulitis. She presented to the ED with hypertensive urgency BP 130/100, slightly tachypneic RR 20. She was found to have on further exam to moderate erythemic skin with multiple open wounds to the buttocks area with oozing drainage. ?Patient notes chills & she had a cold that resolved approximately 1 week ago. Upon admit to the floor skin evaluation and repositioning patient had significant pain with any movement of her trunk and even greater with her extremities. On admit patient denies chest pain, headache, changes in vision, difficulty swallowing, speech impairment, numbness, tingling, head injury, LOC, fever, body aches, cough, recent exposure to illness, abdominal pain, vomiting, urinary incontinence/retention, dysuria, frequency, urgency, hematuria, constipation, incontinence, melena, recent changes to medication. On admit temp 97.6?, BP 111/50, this is decreased from 130/100, previous blood pressures noted from 2020 systolics 150-178. Heart rate 71, RR 20, O2 saturation 97% on 2 L nasal cannula. WBC 15.5 neutrophils 13,900, baso 200, [place] 1.7, procalcitonin 11.6, lipase 14, CK 953, CK-2 7.78, RI 0.8%, HGB 9.2/HCT 30.1, MCV 77.5, MCH 23.7-these are baseline. BUN 33, creatinine 1.38, GFR 44, glucose 123. 202: BUN 29, creatinine 0.86, GFR> 60. BNP 758. I personally reviewed: EKG NSR at a rate of 60 with sinus arrhythmia. Head CT is negative for any acute process, prior left temporal lobe craniotomy. Chest x- ray limited, without acute process. Patient is admitted to acute care with sepsis without shock, multiple GLF, cellulitis, MICHAEL, weakness, with failure to thrive. Patient History Medical History (Updated 07/02/22 @ 22:35 by SHAUNA Decker-NEENA) Bilateral lower extremity edema Chronic respiratory failure COPD (chronic obstructive pulmonary disease) Diabetes History of cellulitis History of congestive heart failure Hypertension Hypoxia Meningioma Morbidly obese Personal history of osteomyelitis Surgical History (Updated 07/02/22 @ 22:35 by SHAUNA Decker-NEENA) History of craniotomy Status post appendectomy Status post cholecystectomy Family & Social History Family History Daughter No problems noted. Son No problems noted. Mother Diabetes mellitus Congestive heart failure Father Diabetes mellitus Social History: household members children Safety & Behavioral: Feels Safe in Current Yes Environment Been Physically Hurt or No Threatened By a Person Tobacco & Substance use: Smoking Status Never smoker alcohol intake frequency holiday/special occasion Substance Use Type marijuana,does not use Meds Home Medications and Allergies Home Medications Medication Instructions Recorded Confirmed Type carvedilol 25 mg tablet 25 mg PO BID 09/20/18 05/16/20 History potassium chloride 10 mEq 10 meq PO BID 09/20/18 05/16/20 History tablet,extended release(part/cryst) insulin lispro 100 unit/mL 10 units SUBCUT 3-4XD PRN 10/10/18 05/16/20 History subcutaneous solution Hyperglycemia gabapentin 300 mg capsule 300 mg PO TID 04/07/20 05/16/20 History hydralazine 25 mg tablet 25 mg PO TID #90 tabs 04/07/20 05/16/20 Rx losartan 100 mg tablet 100 mg PO QAM 04/07/20 05/16/20 History tiotropium bromide 18 mcg capsule 1 cap inhalation QAM 04/07/20 05/16/20 History with inhalation device (Spiriva with HandiHaler) acetaminophen 325 mg capsule 650 mg PO Q4H PRN Pain, Moderate 05/16/20 05/16/20 History amlodipine 10 mg tablet 10 mg PO QAM 05/16/20 05/16/20 History dexamethasone 1 mg tablet 4 mg PO TID 05/16/20 05/16/20 History famotidine 20 mg tablet 20 mg PO BID 05/16/20 05/16/20 History ferrous sulfate 324 mg (65 mg 324 mg PO QAM 05/16/20 05/16/20 History iron) tablet,delayed release furosemide 20 mg tablet 20 mg PO QAM PRN Edema 05/16/20 05/16/20 History levetiracetam 750 mg tablet 750 mg PO BID 05/16/20 05/16/20 History oxycodone 5 mg tablet 2.5 - 5 mg PO Q6H PRN Pain (Scale 05/16/20 05/16/20 History Score 7-10) oxygen-air delivery systems 05/16/20 05/16/20 History Allergies Allergy/AdvReac Type Severity Reaction Status Date / Time naproxen Allergy Mild MADE MY Verified 05/16/20 12:59 FACE NUMB meperidine Allergy Unknown Verified 05/16/20 12:59 Penicillins Allergy Unknown Verified 05/16/20 12:59 Sulfa (Sulfonamide Allergy Unknown Verified 05/16/20 12:59 Antibiotics) diphenhydramine AdvReac Shakiness Verified 05/16/20 12:59 [From Ya] Review of Systems Review of Systems Narrative: All 12 point systems reviewed with the patient and are negative except otherwise documented. Exam Vital Signs (past 8 hours): - 07/02/22 20:16 07/02/22 20:56 Temperature 97.6 F Pulse Rate 71 Respiratory Rate 20 Blood Pressure 130/100 H 111/50 L Pulse Oximetry 97 Oxygen Delivery Method Nasal Cannula Oxygen Flow Rate 2 Oxygen Delivery Method Nasal Cannula Oxygen Flow Rate 2 Narrative Exam Narrative: General: Patient is a mirella, excellent historian, morbidly obese female who appears older than stated age, and chronically ill appearing, in no acute distress at this time, in fact during intake patient frequently dosed off and begins snoring. HEENT: Normocephalic, atraumatic, extraocular muscles intact, oral pharynx is clear and mucous membranes are severely dry, lips are cracking. Neck is supple and symmetric, trachea is midline, no adenopathy, no thyroid enlargement, nontender, no masses palpated. Negative for JVD Chest: Breathing without nasal flaring, retractions, mildly labored and tachypneic, chronic respiratory failure on 2 L nasal cannula Lungs: Auscultation of all lung ramirez poor air exchange, shallow breathing, occasional crackles noted in bilateral bases. Cardio: Bradycardic regular rate and rhythm without murmur, rubs, or gallops, no carotid bruit, no cardiac pulsations present. Abdomen: Soft nontender, negative for organomegaly, or masses. Bowel sounds hypoactive are present in all 4 quadrants without guarding or rebound, no CVA tenderness. Musculoskeletal: Muscle strength and tone equal but decreased noted deconditioning, muscle wasting, no deformity, crepitus, effusions, cyanosis, clubbing, noted bilateral lower extremity chronic venous stasis dry cracking with scaling, erythemic and edema, radial and pedal pulses are normal. Skin: Warm very dry and poor skin turgor, bilateral arm pits with fungal erythematous areas lt signioficantly worse than right, significant area horizontally in abdominal fold, noted bilateral lower extremity venous stasis, dry cracking, scailing, and noted erythema, cellulitis to left buttock with open wound and drainage, skin breakdown erythema to right hi. Neuro: Alert and orientated x3, significant difficulty and pain moving all extremities, sensation to touch intact, no gross deficits noted of cranial nerves. Psych: Patient has appropriate affect, mental status attitude thought context and judgment are appropriate for age. Objective Labs 07/02/22 20:15 07/02/22 20:15 Labs: Laboratory Results - last 24 hr 07/02/22 07/02/22 07/02/22 20:15 20:15 20:15 WBC 15.5 H RBC 3.88 L Hgb 9.2 L Hct 30.1 L MCV 77.5 L MCH 23.7 L MCHC 30.5 RDW 18.5 H Plt Count 418 H Neut % (Auto) 89.8 H Lymph % (Auto) 4.9 L [place] % (Auto) 4.2 Eos % (Auto) 0.0 L Baso % (Auto) 1.1 Neut # (Auto) 89721 H Lymph # (Auto) 800 L [place] # (Auto) 700 Eos # (Auto) 0 Baso # (Auto) 200 H PT 14.0 H INR 1.2 APTT 26 Sodium 137 Potassium 4.1 Chloride 104 Carbon Dioxide 26 BUN 33 H Creatinine 1.38 H Estimated GFR 44 L BUN/Creatinine Ratio 23.9 H Glucose 123 H Lactate Calcium 8.3 L Total Bilirubin 0.6 AST 38 H ALT 36 H Alkaline Phosphatase 104 Total Creatine Kinase CK-MB (CK-2) CK-MB (CK-2) Rel Index Troponin I NT-Pro-B Natriuret Pep Total Protein 6.5 Albumin 3.1 L Globulin 3.4 Albumin/Globulin Ratio 0.9 L Lipase 14 L Procalcitonin 11.6 H Urine Color Urine Appearance Urine pH Ur Specific [place] Urine Protein Urine Glucose (UA) Urine Ketones Urine Occult Blood Urine Nitrate Urine Bilirubin Urine Urobilinogen Ur Leukocyte Esterase Urine RBC Urine WBC Urine Bacteria Ur Culture Indicated? Ur Random Sodium Urine Creatinine 07/02/22 07/02/22 07/02/22 20:15 20:15 21:21 WBC RBC Hgb Hct MCV MCH MCHC RDW Plt Count Neut % (Auto) Lymph % (Auto) [place] % (Auto) Eos % (Auto) Baso % (Auto) Neut # (Auto) Lymph # (Auto) [place] # (Auto) Eos # (Auto) Baso # (Auto) PT INR APTT Sodium Potassium Chloride Carbon Dioxide BUN Creatinine Estimated GFR BUN/Creatinine Ratio Glucose Lactate 1.7 Calcium Total Bilirubin AST ALT Alkaline Phosphatase Total Creatine Kinase 953 H CK-MB (CK-2) 7.78 H CK-MB (CK-2) Rel Index 0.8 L Troponin I < 0.012 NT-Pro-B Natriuret Pep 758 H Total Protein Albumin Globulin Albumin/Globulin Ratio Lipase Procalcitonin Urine Color Urine Appearance Urine pH Ur Specific [place] Urine Protein Urine Glucose (UA) Urine Ketones Urine Occult Blood Urine Nitrate Urine Bilirubin Urine Urobilinogen Ur Leukocyte Esterase Urine RBC Urine WBC Urine Bacteria Ur Culture Indicated? Ur Random Sodium 35 Urine Creatinine 185.6 07/02/22 21:21 WBC RBC Hgb Hct MCV MCH MCHC RDW Plt Count Neut % (Auto) Lymph % (Auto) [place] % (Auto) Eos % (Auto) Baso % (Auto) Neut # (Auto) Lymph # (Auto) [place] # (Auto) Eos # (Auto) Baso # (Auto) PT INR APTT Sodium Potassium Chloride Carbon Dioxide BUN Creatinine Estimated GFR BUN/Creatinine Ratio Glucose Lactate Calcium Total Bilirubin AST ALT Alkaline Phosphatase Total Creatine Kinase CK-MB (CK-2) CK-MB (CK-2) Rel Index Troponin I NT-Pro-B Natriuret Pep Total Protein Albumin Globulin Albumin/Globulin Ratio Lipase Procalcitonin Urine Color Light brown Urine Appearance Cloudy Urine pH 8.5 H Ur Specific [place] 1.015 Urine Protein 1+ H Urine Glucose (UA) Negative Urine Ketones Negative Urine Occult Blood Trace-intact Urine Nitrate Negative Urine Bilirubin Negative Urine Urobilinogen 0.2 Ur Leukocyte Esterase Trace H Urine RBC 1-5/hpf Urine WBC 5-10/hpf H Urine Bacteria Many (>30) H Ur Culture Indicated? Specimen cultured Ur Random Sodium Urine Creatinine Assessment & Plan Assessment & Plan narrative: Rocío Christinais a 61-year-old female with PMH significant for chronic respiratory failure w/ hypoxia and O2 dependence (2L at baseline), COPD, HTN, CHF, iron-deficiency anemia, morbid obesity (BMI 45.9), recurrent UTIs, T6 osteomyelitis, chronic bilateral lower extremity edema, venous stasis, recent history of lower extremity cellulitis, DM, and meningioma with left temporal lobe craniotomy.? Patient brought in by family who are unable to continue to provide her care secondary to recurrent falls, weakness, deconditioning, and failure to thrive. This patient requires acute care inpatient hospital management for recurrent frequent falls, failure to thrive, sepsis, and MICHAEL. After failing outpatient management requiring multiple EMS calls to home. The patient is at much higher risk for medical and surgical complications because of her morbid obesity. These factors increase the difficulty and complexity of medical and surgical interventions and increases the chances of poor outcomes such as morbidity and mortality, as well as complications from diabetes. The patient's chronic respiratory failure will impact her oxygenation, which will likely contribute to poor wound healing & recovery. Patient is admitted to acute care with sepsis without shock, multiple GLF, cellulitis, MICHAEL, weakness, with failure to thrive. Patient requires IV hydration, antibiotics, wound care, evaluation and treatment regarding weakness deconditioning, cellulitis, and further infectious workup, as well resolution of MICHAEL. This patient will likely require SNF or rehab placement on discharge for adequate care. 1. Sepsis without shock, acute, renal/metabolic/infectious, with Cellul itis,acute, present on admission -cellulitis of Left buttocks with open wounds, bilateral lower extremities ( tx 2 wks of antibiotics-recently completed) -BP 111/50, this is decreased from 130/100, previous blood pressures noted from 2020 systolics 150-178. Heart rate 71, RR 20, O2 saturation 97% on 2 L nasal cannula. -WBC 15.5 neutrophils 13,900, baso 200, lactate 1.7, procalcitonin 11.6, lipase 14, CK 953, CK-2 7.78, RI 0.8%, wound, blood, urine cultures pending, COVID, influenza a/B/RSV/GI panel/urine sodium/urine creatinine-pending. -sofa score: 2 -sepsis fluid bolus and Rocephin given in ED -continue Sepsis fluid bolus then NS at 60 cc/HR, Rocephin, vancomycin per pharmacy due to noted cellulitis, and history of osteomyelitis T6 -ordered CRP, ESR, repeat CK-MB, MRSA, chest CTA, abdomen pelvis CT. -Nystatin for fungal infection & breakdown in skin folds. -Wound care BID, Q2 hr repositioning. -close monitoring for hypotensive septic shock -ED placed bassett- to monitor strict I&O 2. MICHAEL, acute, due to dehydration (diarrhea), acute, present on admission -BUN 33, creatinine 1.38, GFR 44, glucose 123. 2020- BUN 29, creatinine 0.86, GFR> 60. -NS at 60 -avoid nephrotoxic medication 3. Ground level fall, multiple/recurrent, weakness, failure to thrive, acute on chronic, present on admission -patient's family reports that they are no longer able to provide in-home care and support for patient's deteriorating medical condition. -PT/OT/DRAWER IN DOBBY LOOM consult ordered -Needs wound care referral -Strict Fall precautions 4. Essential hypertension, with hypertensive urgency acute on chronic, present on admission -Admit:BP 111/50, this is decreased from ED 130/100 -due to patient's current hypotension will hold Lasix, amlodipine, famotidine, hydroxyzine, losartan, carvedilol- also pending medication verification. -notify provider for systolic<110 and/or map<60 greater than 30 minutes. -Continue bolus 5. CHF, chronic, present on admission -no records of echo or EF -BNP 758 -fluid restriction, strict I&O, daily weights, low-sodium -Monitor for fluid overload 2nd to sepsis boluses 6. Insulin-dependent diabetes, acute, present on admission -initial BS 123 -patient admitted under diabetic protocol, sliding scale for coverage(replacing patient's NovoLog) -A1c ordered 7. History left temporal craniotomy, chronic, meningioma, present on admission -continue Keppra (seizure prophylaxis s/p craniotomy) 8. Chronic respiratory failure on 2 L/O2 at home secondary to COPD, chronic, present on admission -continue oxygen support, respiratory consult as needed -On admit: 97% on 2 L nasal cannula 9. Morbid obesity severe, acute on chronic, present on admission -as evidence by BMI 46.6 -dietary consult ordered regarding nutritional education and information for dietary, lifestyle, exercise, and weight changes. -the patient is at much higher risk for medical and surgical complications due to obesity as it relates to chronic illnesses COPD, hypertension, CHF, and acute illness cellulitis, MICHAEL. The patient's obesity increases the difficulty and complexity of medical and/or surgical interventions, management and increases the chances of poor outcome such as morbidity and mortality as well as impaired wound healing. 10. Recurrent UTI, chronic, present on admission -urinalysis was positive for many bacteria, WBC, leuko est-culture pending -Bassett in place per ED 11. History of osteomyelitis, T6, present on admission -ordered additional imaging chest abdomen pelvis-depending on results may consider lumbar MRI. Code status:Full Surrogate decision maker: Soct Contreras AYANJaz DARIEN PCR:Negative DVT/VTE prophylaxis: Lovenox and SCDs Disposition: Patient is expected length of stay greater than 2 midnights. I have utilized all available immediate resources to obtain, update, or review the patient's current medications. I confirmed that the patient's advanced care plan is present, Code status is documented and/or surrogate decision maker is listed in the patient's medical record. I have personally reviewed patient's chart notes from PCP, specialists, diag nostic imaging, and laboratory results. Time Spent With Patient Critical Care time: I spent a total of [] minutes of critical care time on this patient's care today; this time is exclusive of procedural time.
[2022-07-02 21:58] LABS: Influenza A - CEPHEID Flu A NEGATIVE (NEGATIVE); Influenza B - CEPHEID Flu B NEGATIVE (NEGATIVE); Respiratory Syncytial Virus Negative (Negative)
--- NOTE | 2022-07-02 22:06 | DI.CT.S_ITS ---
PROCEDURE: CT ABDOMEN PELVIS W CON INDICATIONS: sepsis, hx of osteo, Chronic resp fail TECHNIQUE: After the administration of intravenous contrast, axial sections acquired from the lung bases to the pubic symphysis. Coronal and sagittal reformats were performed. For radiation dose reduction, the following was used: automated exposure control, adjustment of mA and/or kV according to patient size. COMPARISON: [facility], CT, CT ANGIO CHEST PE PROTOCOL, 07/02/2022, 22:20. FINDINGS: Image quality: Excellent. Lung bases: Unremarkable considering prominently reduced inspiratory volume. Heart and vessels: No significant findings. Again noted is extensive metal artifact causing areas abrupt low attenuation within vascular structures, including the aorta, and it is not possible to accurately establish presence or absence embolic disease or thrombosis vessels in this clinical circumstance. ABDOMEN: Liver: Unremarkable. Gallbladder: Previously resected. Biliary ducts: Unremarkable. Pancreas: Unremarkable. Spleen: Unremarkable. Adrenal Glands: Unremarkable. Kidneys and Ureters: Unremarkable, with a small amount of excreted contrast or calculi within the nondistended collecting system of each kidney. Stomach and Bowel: Stomach, small bowel loops, and colon are unremarkable. Peritoneum: No abnormal intraperitoneal fluid. No free air. Ventral Wall: No hernias. Abdominal Nodes: No retroperitoneal or mesenteric adenopathy by size criteria. Vessels: Aorta and inferior vena cava are normal in size. PELVIS: Pelvic Organs: Unremarkable. Bladder: Unremarkable. Pelvic Nodes: No enlarged lymph nodes. Miscellaneous: No hernias are seen. Bones: Unremarkable. IMPRESSION: A definite source of sepsis syndrome is not seen. No abscess or inflammatory process is found. Again noted is extensive metal artifact crossing vessels within the chest in this patient extensive prior metallic devices involved in fusion the thoracic spine. Prior cholecystectomy. No definite acute disease. Dictated by: Xander Hopkins M.D. on 07/02/2022 at 23:30 Approved by: Xander Hopkins M.D. on 07/02/2022 at 23:36
[2022-07-02 22:07] LABS: Magnesium 1.7 mg/dL (1.6-2.3)
[2022-07-02 22:07] LABS: COVID-19 CEPHEID 4-PLEX PCR Negative (Negative)
[2022-07-02 22:26] LABS: Erythrocyte Sedimentation Rate 65 MM/HR (0-20)
[2022-07-02 23:14] LABS: C-Reactive Protein Quant 8.5 mg/dL (<1.0)
--- NOTE | 2022-07-02 23:33 | PC.WOUNDPHOT ---
Admission Skin Wound photos
[2022-07-02] MEDS: IPRATROPIUM 0.5 MG/2.5 ML NEB INH (23:52)
[2022-07-02 23:54] LABS: Hemoglobin A1C% w Est Avg Glu 6.5 % (4.0-6.0)
[2022-07-03] VITALS (70 sets, daily range): BP systolic 69–162; BP diastolic 35–84; PULSE 63–92; RESP 13–36; TEMP 36.4–37.4; O2SAT 91–100
[2022-07-03] MEDS: VANCOMYCIN 1,500 MG/300 ML PIGGYBACK 200 MG IV (00:18)
[2022-07-03] MEDS: SODIUM CHLORIDE 0.9% 1,000 ML 1000 ML IV (00:30)
[2022-07-03] MEDS: levETIRAcetam 250 MG TABLET 750 MG PO ×3 (00:30→21:15)
[2022-07-03] MEDS: SODIUM CHLORIDE 0.9% 1,000 ML 60 ML IV (01:50)
[2022-07-03] MEDS: VANCOMYCIN 1,000 MG/200 ML PIGGYBACK 200 MG IV (01:53)
--- NOTE | 2022-07-03 01:55 | P.TELICUCN_ITS ---
History of Present Illness Consult details IF CAMERA ACTIVATED, patient seen via real-time interactive audiovisual communication: Camera activated Date Patient Seen: 07/03/22 Chief complaint: fall w/ bed sores. Requesting provider: Brianne Olsen Consent obtained for tele-black leather trimmer care: Yes Patient Location: ICU Provider location (State): [place] Other participants/roles: Bedside RN and GRIFFIN Brianne Olsen Narrative: Patient is a 61 year old female with history of morbid obsity, chronic hypoxemia respiratory failure, CHF and HTN who presents with generalized weakness and failure to thrive. On admission she met sepsis criteria and started on ceftriaxone for cellulitis vs UTI. Admitted to the floor and started on IVF. Upgraded to ICU as patient became hypotensive. Received 3 liters of crystalloids and remains hypotensive. Added vancomycin and transferred to ICU. [facility] Medical History (Updated 07/03/22 @ 01:16 by Gaurav White DO) Bilateral lower extremity edema Chronic respiratory failure COPD (chronic obstructive pulmonary disease) Diabetes History of cellulitis History of congestive heart failure Hypertension Hypoxia Meningioma Morbidly obese Personal history of osteomyelitis Surgical History (Updated 07/02/22 @ 22:35 by SHAKIRA Decker) History of craniotomy Status post appendectomy Status post cholecystectomy Family History Daughter No problems noted. Son No problems noted. Mother Diabetes mellitus Congestive heart failure Father Diabetes mellitus Social History household members: children Smoking Status: Never smoker Current Medications Current Medications Medications: Home Medications carvedilol 25 mg tablet 25 mg PO BID 09/20/18 [History Confirmed 05/16/20] potassium chloride 10 mEq tablet,extended release(part/cryst) 10 meq PO BID 09/20/18 [History Confirmed 05/16/20] insulin lispro 100 unit/mL subcutaneous solution 10 units SUBCUT 3-4XD PRN Hyperglycemia 10/10/18 [History Confirmed 05/16/20] gabapentin 300 mg capsule 300 mg PO TID 04/07/20 [History Confirmed 05/16/20] hydralazine 25 mg tablet 25 mg PO TID #90 tabs 04/07/20 [Rx Confirmed 05/16/20] losartan 100 mg tablet 100 mg PO QAM 04/07/20 [History Confirmed 05/16/20] tiotropium bromide 18 mcg capsule with inhalation device (Spiriva with HandiHaler) 1 cap inhalation QAM 04/07/20 [History Confirmed 05/16/20] acetaminophen 325 mg capsule 650 mg PO Q4H PRN Pain, Moderate 05/16/20 [History Confirmed 05/16/20] amlodipine 10 mg tablet 10 mg PO QAM 05/16/20 [History Confirmed 05/16/20] dexamethasone 1 mg tablet 4 mg PO TID 05/16/20 [History Confirmed 05/16/20] famotidine 20 mg tablet 20 mg PO BID 05/16/20 [History Confirmed 05/16/20] ferrous sulfate 324 mg (65 mg iron) tablet,delayed release 324 mg PO QAM 05/16/20 [History Confirmed 05/16/20] furosemide 20 mg tablet 20 mg PO QAM PRN Edema 05/16/20 [History Confirmed 05/16/20] levetiracetam 750 mg tablet 750 mg PO BID 05/16/20 [History Confirmed 05/16/20] oxycodone 5 mg tablet 2.5 - 5 mg PO Q6H PRN Pain (Scale Score 7-10) 05/16/20 [History Confirmed 05/16/20] oxygen-air delivery systems 05/16/20 [History Confirmed 05/16/20] Visit Medications (administered) Generic Name Dose Route Start Last Admin Trade Name Freq PRN Reason Stop Dose Admin Sodium Chloride 1,000 mls @ 60 mls/hr 07/02/22 21:45 07/03/22 01:50 Normal Saline 0.9% IV 60 mls/hr CONT KARTHIKEYAN Administration Vancomycin HCl 1,000 mg in 200 mls @ 200 mls/hr 07/02/22 00:30 07/03/22 01:53 Vancomycin IV 200 mls/hr Q24H KARTHIKEYAN Administration Vancomycin HCl/Dextrose 1,500 mg in 300 mls @ 200 mls/hr 07/02/22 23:00 07/03/22 01:51 Vancomycin IV Infused Q24H KARTHIKEYAN Infusion Ipratropium [place] 0.5 mg 07/02/22 23:00 07/02/22 23:52 Ipratropium 0.5 Mg/2.5 Ml Neb INH 0.5 mg [id number] KARTHIKEYAN Administration Levetiracetam 750 mg 07/02/22 23:29 07/03/22 00:30 Levetiracetam 250 Mg Tablet PO 750 mg BID KARTHIKEYAN Administration Exam Vital Signs (past 8 hours): - 07/02/22 20:16 07/02/22 20:56 07/02/22 20:03 Temperature 97.6 F Pulse Rate 71 74 Respiratory Rate 20 Blood Pressure 130/100 H 111/50 L Pulse Oximetry 97 100 Oxygen Delivery Method Nasal Cannula Oxygen Flow Rate 2 Fraction of Inspired Oxygen 07/02/22 20:04 07/02/22 20:04 07/02/22 21:00 Temperature Pulse Rate 70 61 Respiratory Rate 13 Blood Pressure 134/100 H Pulse Oximetry 100 Oxygen Delivery Method Oxygen Flow Rate Fraction of Inspired Oxygen 07/02/22 21:02 07/02/22 21:02 07/02/22 21:30 Temperature Pulse Rate 65 97 H Respiratory Rate 14 20 Blood Pressure 117/51 L Pulse Oximetry 99 Oxygen Delivery Method Oxygen Flow Rate Fraction of Inspired Oxygen 07/02/22 22:00 07/02/22 22:07 07/02/22 22:07 Temperature Pulse Rate 67 61 Respiratory Rate 18 22 Blood Pressure 130/86 Pulse Oximetry 100 100 Oxygen Delivery Method Oxygen Flow Rate Fraction of Inspired Oxygen 07/02/22 22:30 07/02/22 22:39 07/02/22 22:39 Temperature Pulse Rate 67 65 Respiratory Rate 29 H 29 H Blood Pressure 114/80 Pulse Oximetry 99 99 Oxygen Delivery Method Oxygen Flow Rate Fraction of Inspired Oxygen 07/02/22 23:52 07/03/22 00:53 07/02/22 23:18 Temperature 97.8 F Pulse Rate 75 Respiratory Rate 16 20 Blood Pressure 112/49 L 103/49 L Pulse Oximetry 97 91 95 Oxygen Delivery Method Nasal Cannula Oxygen Flow Rate 2 2 2 Fraction of Inspired Oxygen 28 07/02/22 23:33 07/02/22 23:48 07/02/22 23:51 Temperature 97.7 F Pulse Rate 79 67 Respiratory Rate 20 Blood Pressure 110/33 L 73/29 L 103/33 L Pulse Oximetry 96 100 Oxygen Delivery Method Oxygen Flow Rate 2 2 Fraction of Inspired Oxygen 07/02/22 23:54 07/03/22 00:03 07/03/22 00:14 Temperature Pulse Rate Respiratory Rate Blood Pressure 128/101 H 83/35 L 69/36 L Pulse Oximetry Oxygen Delivery Method Oxygen Flow Rate Fraction of Inspired Oxygen 07/03/22 01:09 07/03/22 01:30 Temperature 97.6 F Pulse Rate 79 Respiratory Rate 21 Blood Pressure 100/44 L 129/64 Pulse Oximetry 95 Oxygen Delivery Method Oxygen Flow Rate 2 Fraction of Inspired Oxygen Fraction of Inspired Oxygen 28 SaO2/FiO2 Ratio 346 Oxygen Delivery Method Nasal Cannula Oxygen Flow Rate 2 Narrative Exam Narrative: Toxic appearing Objective Labs 07/02/22 20:15 07/02/22 20:15 Labs: Laboratory Results - last 24 hr 07/02/22 07/02/22 07/02/22 20:15 20:15 20:15 WBC 15.5 H RBC 3.88 L Hgb 9.2 L Hct 30.1 L MCV 77.5 L MCH 23.7 L MCHC 30.5 RDW 18.5 H Plt Count 418 H Neut % (Auto) 89.8 H Lymph % (Auto) 4.9 L [place] % (Auto) 4.2 Eos % (Auto) 0.0 L Baso % (Auto) 1.1 Neut # (Auto) 68448 H Lymph # (Auto) 800 L [place] # (Auto) 700 Eos # (Auto) 0 Baso # (Auto) 200 H ESR PT 14.0 H INR 1.2 APTT 26 Sodium 137 Potassium 4.1 Chloride 104 Carbon Dioxide 26 BUN 33 H Creatinine 1.38 H Estimated GFR 44 L BUN/Creatinine Ratio 23.9 H Glucose 123 H Hemoglobin A1c Lactate Calcium 8.3 L Magnesium Total Bilirubin 0.6 AST 38 H ALT 36 H Alkaline Phosphatase 104 Total Creatine Kinase CK-MB (CK-2) CK-MB (CK-2) Rel Index Troponin I C-Reactive Protein NT-Pro-B Natriuret Pep Total Protein 6.5 Albumin 3.1 L Globulin 3.4 Albumin/Globulin Ratio 0.9 L Lipase 14 L Procalcitonin 11.6 H Urine Color Urine Appearance Urine pH Ur Specific [place] Urine Protein Urine Glucose (UA) Urine Ketones Urine Occult Blood Urine Nitrate Urine Bilirubin Urine Urobilinogen Ur Leukocyte Esterase Urine RBC Urine WBC Urine Bacteria Ur Culture Indicated? Ur Random Sodium Urine Creatinine SARS-CoV-2 (PCR) Influenza A (RT-PCR) Influenza B (RT-PCR) RSV (PCR) 07/02/22 07/02/22 07/02/22 20:15 20:15 20:15 WBC RBC Hgb Hct MCV MCH MCHC RDW Plt Count Neut % (Auto) Lymph % (Auto) [place] % (Auto) Eos % (Auto) Baso % (Auto) Neut # (Auto) Lymph # (Auto) [place] # (Auto) Eos # (Auto) Baso # (Auto) ESR PT INR APTT Sodium Potassium Chloride Carbon Dioxide BUN Creatinine Estimated GFR BUN/Creatinine Ratio Glucose Hemoglobin A1c Lactate 1.7 Calcium Magnesium 1.7 Total Bilirubin AST ALT Alkaline Phosphatase Total Creatine Kinase 953 H CK-MB (CK-2) 7.78 H CK-MB (CK-2) Rel Index 0.8 L Troponin I < 0.012 C-Reactive Protein NT-Pro-B Natriuret Pep 758 H Total Protein Albumin Globulin Albumin/Globulin Ratio Lipase Procalcitonin Urine Color Urine Appearance Urine pH Ur Specific [place] Urine Protein Urine Glucose (UA) Urine Ketones Urine Occult Blood Urine Nitrate Urine Bilirubin Urine Urobilinogen Ur Leukocyte Esterase Urine RBC Urine WBC Urine Bacteria Ur Culture Indicated? Ur Random Sodium Urine Creatinine SARS-CoV-2 (PCR) Influenza A (RT-PCR) Influenza B (RT-PCR) RSV (PCR) 07/02/22 07/02/22 07/02/22 20:15 20:15 20:15 WBC RBC Hgb Hct MCV MCH MCHC RDW Plt Count Neut % (Auto) Lymph % (Auto) [place] % (Auto) Eos % (Auto) Baso % (Auto) Neut # (Auto) Lymph # (Auto) [place] # (Auto) Eos # (Auto) Baso # (Auto) ESR 65 H PT INR APTT Sodium Potassium Chloride Carbon Dioxide BUN Creatinine Estimated GFR BUN/Creatinine Ratio Glucose Hemoglobin A1c 6.5 H Lactate Calcium Magnesium Total Bilirubin AST ALT Alkaline Phosphatase Total Creatine Kinase CK-MB (CK-2) CK-MB (CK-2) Rel Index Troponin I C-Reactive Protein 8.5 H NT-Pro-B Natriuret Pep Total Protein Albumin Globulin Albumin/Globulin Ratio Lipase Procalcitonin Urine Color Urine Appearance Urine pH Ur Specific [place] Urine Protein Urine Glucose (UA) Urine Ketones Urine Occult Blood Urine Nitrate Urine Bilirubin Urine Urobilinogen Ur Leukocyte Esterase Urine RBC Urine WBC Urine Bacteria Ur Culture Indicated? Ur Random Sodium Urine Creatinine SARS-CoV-2 (PCR) Influenza A (RT-PCR) Influenza B (RT-PCR) RSV (PCR) 07/02/22 07/02/22 07/02/22 20:36 21:21 21:21 WBC RBC Hgb Hct MCV MCH MCHC RDW Plt Count Neut % (Auto) Lymph % (Auto) [place] % (Auto) Eos % (Auto) Baso % (Auto) Neut # (Auto) Lymph # (Auto) [place] # (Auto) Eos # (Auto) Baso # (Auto) ESR PT INR APTT Sodium Potassium Chloride Carbon Dioxide BUN Creatinine Estimated GFR BUN/Creatinine Ratio Glucose Hemoglobin A1c Lactate Calcium Magnesium Total Bilirubin AST ALT Alkaline Phosphatase Total Creatine Kinase CK-MB (CK-2) CK-MB (CK-2) Rel Index Troponin I C-Reactive Protein NT-Pro-B Natriuret Pep Total Protein Albumin Globulin Albumin/Globulin Ratio Lipase Procalcitonin Urine Color Light brown Urine Appearance Cloudy Urine pH 8.5 H Ur Specific [place] 1.015 Urine Protein 1+ H Urine Glucose (UA) Negative Urine Ketones Negative Urine Occult Blood Trace-intact Urine Nitrate Negative Urine Bilirubin Negative Urine Urobilinogen 0.2 Ur Leukocyte Esterase Trace H Urine RBC 1-5/hpf Urine WBC 5-10/hpf H Urine Bacteria Many (>30) H Ur Culture Indicated? Specimen cultured Ur Random Sodium 35 Urine Creatinine 185.6 SARS-CoV-2 (PCR) Negative Influenza A (RT-PCR) Flu a negative Influenza B (RT-PCR) Flu b negative RSV (PCR) Negative Assessment & Plan Assessment & Plan narrative: NEURO: # Acute encephalopathy -- Secondary to UTI and sepsis -- SEpsis rx as below -- Avoid sedatives -- PT/OT -- Seek early mobility RESP: # Chronic hypoxemia respiratory failure -- On 2 liters NC -- Encourage IS and OOB as tolerated -- Goal SpO2 > 88% CVS: # Distributive shock -- Secondary to sepsis -- Cont IVF resuscitation -- Start levophed to maintain MAP goal > 65 -- Recommend consulting ERP for emergent CVC placement -- If levophed above 10 then will add vasopressin and stress dose steroids -- Recommend checking TTE : # MICHAEL vs CKD -- cont IVF resuscitation -- Avoid nephrotoxin agents -- Monitor UOP -- Daily BMP ID: # Septic shock -- Secondary to UTI -- On vanc -- Switch ceftriaxone to cefepime -- Cont IVF -- MAP goal > 65 -- Follow up cx data ENDO: -- Goal BS < 180 D/w GRIFFIN Brianne Olsen and RN Time Spent With Patient Critical Care time: I spent a total of 34 minutes of critical care time on this patient's care today; this time is exclusive of procedural time.
[2022-07-03] MEDS: NOREPINEPHRINE BITARTRATE/D5W 4 MG/250 ML PLAST..BAG 30 MG IV (03:07)
[2022-07-03 03:28] LABS: MRSA (Nasal) PCR Not Detected (Not Detect)
[2022-07-03] MEDS: CEFEPIME 1 GM in SODIUM CHLORIDE 0.9% 100 ML IV ×2 (04:49→14:21)
--- NOTE | 2022-07-03 05:16 | PC.NURSE ---
Pt transferred from the floor. BPs 80s/50s. Pt alert, unable to assess orientation due to fatigue and lethargy, but responds to name and follows commands. Tele ICU doctor consulted. Levo and cefepime ordered. Pt currently resting comfortably in bed, vitals stable. Levo currently running at 7 mcg/min.
[2022-07-03 05:51] LABS: INR 1.2 (0.9-1.3); Prothrombin Time 14.1 SECONDS (10.1-12.7)
[2022-07-03 05:55] LABS: Lactate (Lactic Acid) 0.9 mmol/L (0.7-2.1)
[2022-07-03 05:58] LABS: Add Manual Diff / Slide Review NO; Basophils Absolute Auto 100 /uL (0-100); Basophils Percent Auto 0.6 % (0-2); Eosinophils Absolute Auto 0 /uL (0-450); Eosinophils Percent Auto 0.1 % (2-4); Hematocrit 27.6 % (36-46); Hemoglobin 8.3 g/dL (12.0-16.0); Lymphocytes Absolute Auto 1200 /uL (1100-4500); Lymphocytes Percent Auto 7.7 % (25-40); Mean Corpuscular HGB Conc 30.2 % (30-36); Mean Corpuscular Hemoglobin 23.3 PG (26-34); Mean Corpuscular Volume 77.4 fL (80-100); Monocytes Absolute Auto 800 /uL (0-900); Monocytes Percent Auto 5.1 % (3-14); Neutrophils Absolute Auto 13800 /uL (1500-7000); Neutrophils Percent Auto 86.5 % (50-75); Platelet Count 369 X10^3/uL (150-400); Red Blood Cell Count 3.57 X10^6/uL (4.0-5.2); Red Cell Distribution Width 18.6 % (11.6-14.8); White Blood Cell Count 15.9 X10^3/uL (4.5-11.0)
[2022-07-03 06:11] LABS: Alanine Aminotransferase 30 IU/L (<35); Albumin 2.5 g/dL (3.5-5.0); Albumin Globulin Ratio 0.8 (1.0-2.8); Alkaline Phosphatase 82 U/L (38-126); Aspartate Aminotransferase 35 IU/L (14-36); BUN Creatinine Ratio 30.4 (6-22); Bilirubin Total 0.2 mg/dL (0.2-1.3); Blood Urea Nitrogen 28 mg/dL (7-17); Calcium 7.5 mg/dL (8.4-10.2); Carbon Dioxide 19 mmol/L (22-32); Chloride 113 mmol/L (98-107); Creatine Kinase 770 U/L (30-135); Estimated Glomerular Filt Rate > 60 mL/min (>60); Globulin 3.2 g/dL (1.7-4.1); Glucose 135 mg/dL (80-110); HEMOLYSIS < 15 (0-50); Magnesium 1.7 mg/dL (1.6-2.3); Sodium 140 mmol/L (137-145); Total Protein 5.7 g/dL (6.3-8.2)
[2022-07-03 06:28] LABS: Troponin I < 0.012 ng/mL (0.01-0.034)
[2022-07-03] MEDS: ENOXAPARIN 30 MG/0.3 ML SYRINGE SUBCUT (08:34)
[2022-07-03] MEDS: GABAPENTIN 300 MG CAPSULE PO ×3 (08:35→21:15)
[2022-07-03] MEDS: POTASSIUM CHLORIDE 10 MEQ TAB PO ×2 (08:35→21:15)
[2022-07-03] MEDS: FERROUS SULFATE 325 MG TABLET PO (08:35)
[2022-07-03] MEDS: ACETAMINOPHEN 325 MG TABLET 650 MG PO (09:33)
--- NOTE | 2022-07-03 09:54 | PT-IP ANOTE ---
Spoke with RN, recommended waiting until afternoon in order to allow new meds to stabilize
--- NOTE | 2022-07-03 11:13 | PT-IP ANOTE ---
Checked back in with RN, pt medically unstable, blood pressure is all over the place, recommends rechecking tomorrow
--- NOTE | 2022-07-03 11:15 | DI.RAD.S_ITS ---
PROCEDURE: XR CHEST FOR PICC 1V INDICATIONS: PICC placement COMPARISON: [facility], , XR CHEST 1V, 07/02/2022, 20:06. FINDINGS: PICC was placed by the intravenous therapy team from the right side. Fluoroscopic spot film demonstrates the tip of PICC projecting to the area of right lower SVC. No pneumothorax or pleural effusion. Heart size is enlarged. Hardware in the thoracic spine is present. IMPRESSION: Tip of PICC projects to the area of lower SVC. Dictated by: El Akers M.D. on 07/03/2022 at 11:44 Approved by: El Akers M.D. on 07/03/2022 at 11:45
[2022-07-03 11:45] LABS: Troponin I < 0.012 ng/mL (0.01-0.034)
--- NOTE | 2022-07-03 12:13 | PC.NURSE ---
patient sensitive to pain. states current pain 8/10 to 1010. hospitalist made aware and new pain medications ordered. patient resistant and/or declines some care including Q2 turns due to pain.
[2022-07-03] MEDS: OXYCODONE IR 5 MG TABLET PO (12:44)
--- NOTE | 2022-07-03 15:47 | CM.DANOTE ---
DCP/Assessment: Reviewed chart. Patient is a 61yr old female admitted to [facility] with respiratory failure with hypoxia. PCP Dr. Lin. Primary payor is 1)Medicare 2)Medicaid. Met with patient at bedside explained WOOL HANKER role. Patient reports that she resides with family in [place]. Patient is 02 dependent. Patient reports that she has been feeling very weak and that she would like to go to SNF when medically appropriate to do so. First SNF choice is [facility]. Patient requesting to stay in town. Patient reports that prior to hospitalization she could ambulate with walker. P: WOOL HANKER recommends PT/OT evaluations when medically appropriate to do so. Placed call to [facility] and provied them with referral for review. SYLVIA Discharge Planning/Care Management CM Discharge Assessment Start: 07/03/22 15:43 Freq: Status: Active Protocol: Document 07/03/22 15:43 SYLVIA (Rec: 07/03/22 15:47 SYLVIA [id number]) Discharge Planning Assessment Assigned Career Guidance Technician LISSETT Del Toro Contact Information Hermelindo Patel # [phone] Advance Directives? Yes: POLST Advance Directives on File Yes History Provided By Patient,Medical Record Prior Living Arrangements House Household Members children Type of transporation used prior to Relies on Others admit Independent with ADL's No: Currently needs assistance Is patient alert and oriented? Yes Caregiver for Another No DME Already Rented / Owned FWW / Walker Comment Patient on home 02 at baseline continous Patient/Family Preference [facility]-Way Facility Barriers to Discharge No Comment Patient and medical team requesting SNF for continued rehabilation when patient medically stable. PT/OT evalutions currently pending to determine need. Discharge Plan [facility]-Way Facility Transportation Arrangement Facility Referrals Initiated Half-Way Medicare Choice List Provided Yes SNF/HH Preference [facility] Has Agency SNF been contacted Yes Whiteboard Updated in Patient Room with Yes name and ext. # of Career Guidance Technician Review Status In Process Next Review Type Continued Stay Review
--- NOTE | 2022-07-03 16:03 | PM.PN.1 ---
Subjective Subjective Interval history: 61-year-old female with chronic hypoxic respiratory failure on 2 L of oxygen at baseline, COPD, hypertension, chronic congestive heart failure, iron deficiency anemia, class 3 obesity with a BMI of 45.9, recurrent UTIs, previous history of T6 osteomyelitis, chronic bilateral lower extremity edema, chronic lower extremity cellulitis, diabetes mellitus type 2, in previous meningioma status post left temporal craniotomy with resultant Keppra treatment for seizures. Patient recently was treated for 2 weeks with Keflex for lower extremity cellulitis. She also developed URI symptoms last week. She is been living at home alone with family providing some assistance. However, over the last 2-3 days she developed increasing weakness, multiple falls, and family felt they were not able to meet her care needs. Patient presented with symptoms and signs of sepsis and was found to have multiple open decubitus wounds on her buttocks as well as associated cellulitis. Shortly after admission to the acute care unit, she developed profound hypotension and was transferred to the ICU. She was placed on pressor support with an eICU consult. Today, she complains of ongoing difficulty with pain in her buttocks. She denies any significant shortness of breath. She does continue to feel poorly overall. No chest pain. Exam Vital Signs (past 8 hours): - 07/03/22 08:30 07/03/22 08:30 07/03/22 09:26 Pulse Rate 80 79 Respiratory Rate 27 H 24 Blood Pressure 131/84 Pulse Oximetry 99 Oxygen Delivery Method Oxygen Flow Rate 07/03/22 09:27 07/03/22 09:27 07/03/22 09:30 Pulse Rate 79 76 Respiratory Rate 18 21 Blood Pressure 134/58 L Pulse Oximetry Oxygen Delivery Method Oxygen Flow Rate 2 2 2 07/03/22 09:30 07/03/22 09:36 07/03/22 09:36 Pulse Rate 85 Respiratory Rate 31 H Blood Pressure 99/50 L 152/77 H Pulse Oximetry Oxygen Delivery Method Oxygen Flow Rate 2 2 2 07/03/22 10:01 07/03/22 10:01 07/03/22 10:30 Pulse Rate 76 82 Respiratory Rate 19 21 Blood Pressure 96/46 L Pulse Oximetry Oxygen Delivery Method Oxygen Flow Rate 2 2 2 07/03/22 10:30 07/03/22 11:01 07/03/22 11:01 Pulse Rate 85 Respiratory Rate 23 Blood Pressure 133/60 161/68 H Pulse Oximetry Oxygen Delivery Method Oxygen Flow Rate 2 2 2 07/03/22 11:06 07/03/22 12:00 07/03/22 11:30 Pulse Rate 83 79 Respiratory Rate 18 21 Blood Pressure Pulse Oximetry Oxygen Delivery Method Nasal Cannula Oxygen Flow Rate 07/03/22 11:31 07/03/22 11:31 07/03/22 12:00 Pulse Rate 79 78 Respiratory Rate 22 36 H Blood Pressure 133/58 L Pulse Oximetry Oxygen Delivery Method Oxygen Flow Rate 07/03/22 12:01 07/03/22 12:01 07/03/22 12:30 Pulse Rate 78 Respiratory Rate 29 H Blood Pressure 126/62 107/52 L Pulse Oximetry Oxygen Delivery Method Oxygen Flow Rate 07/03/22 12:30 07/03/22 13:00 07/03/22 13:00 Pulse Rate 70 75 Respiratory Rate 26 H 31 H Blood Pressure 127/55 L Pulse Oximetry Oxygen Delivery Method Oxygen Flow Rate 07/03/22 13:30 07/03/22 13:30 07/03/22 13:56 Pulse Rate 69 68 Respiratory Rate 26 H 25 H Blood Pressure 103/50 L Pulse Oximetry Oxygen Delivery Method Oxygen Flow Rate 2 2 2 07/03/22 14:00 07/03/22 14:00 07/03/22 14:30 Pulse Rate 73 92 H Respiratory Rate 24 32 H Blood Pressure 113/57 L Pulse Oximetry Oxygen Delivery Method Oxygen Flow Rate 07/03/22 15:00 07/03/22 15:00 07/03/22 15:30 Pulse Rate 86 Respiratory Rate 25 H Blood Pressure 112/56 L 115/57 L Pulse Oximetry Oxygen Delivery Method Oxygen Flow Rate 07/03/22 15:30 07/03/22 16:00 07/03/22 16:00 Pulse Rate 80 84 Respiratory Rate 22 24 Blood Pressure 116/53 L Pulse Oximetry Oxygen Delivery Method Oxygen Flow Rate Fraction of Inspired Oxygen 28 SaO2/FiO2 Ratio 346 Oxygen Delivery Method Nasal Cannula Oxygen Flow Rate 2 Narrative Exam Narrative: GEN: Chronically ill-appearing middle-aged female, Alert and oriented x 3, uncomfortable appearing HEENT:NC, Face symmetric CHEST: Respiratory excursions symmetric, coarsened diminished but CTAB CV: RRR, no M/R/G ABD: Soft, obese, NT/ND, BT present in all 4 quadrants, body habitus limits exam EXTR: warm, well perfused, no C/C, chronic venous stasis changes with scaling and ulceration to the lower extremities bilaterally SKIN: warm and dry, candidal rash noted in her inferior pannus folds NEURO: Alert and oriented x 3, nonfocal Objective Labs 07/03/22 05:35 07/03/22 05:35 Labs: Laboratory Results - last 24 hr 07/02/22 07/02/22 07/02/22 20:15 20:15 20:15 WBC 15.5 H RBC 3.88 L Hgb 9.2 L Hct 30.1 L MCV 77.5 L MCH 23.7 L MCHC 30.5 RDW 18.5 H Plt Count 418 H Neut % (Auto) 89.8 H Lymph % (Auto) 4.9 L [place] % (Auto) 4.2 Eos % (Auto) 0.0 L Baso % (Auto) 1.1 Neut # (Auto) 66470 H Lymph # (Auto) 800 L [place] # (Auto) 700 Eos # (Auto) 0 Baso # (Auto) 200 H ESR PT 14.0 H INR 1.2 APTT 26 Sodium 137 Potassium 4.1 Chloride 104 Carbon Dioxide 26 BUN 33 H Creatinine 1.38 H Estimated GFR 44 L BUN/Creatinine Ratio 23.9 H Glucose 123 H Hemoglobin A1c Lactate Calcium 8.3 L Magnesium Total Bilirubin 0.6 AST 38 H ALT 36 H Alkaline Phosphatase 104 Total Creatine Kinase CK-MB (CK-2) CK-MB (CK-2) Rel Index Troponin I C-Reactive Protein NT-Pro-B Natriuret Pep Total Protein 6.5 Albumin 3.1 L Globulin 3.4 Albumin/Globulin Ratio 0.9 L Lipase 14 L Procalcitonin 11.6 H Urine Color Urine Appearance Urine pH Ur Specific [place] Urine Protein Urine Glucose (UA) Urine Ketones Urine Occult Blood Urine Nitrate Urine Bilirubin Urine Urobilinogen Ur Leukocyte Esterase Urine RBC Urine WBC Urine Bacteria Ur Culture Indicated? Ur Random Sodium Urine Creatinine Nasal Screen MRSA (PCR) SARS-CoV-2 (PCR) Influenza A (RT-PCR) Influenza B (RT-PCR) RSV (PCR) 07/02/22 07/02/22 07/02/22 20:15 20:15 20:15 WBC RBC Hgb Hct MCV MCH MCHC RDW Plt Count Neut % (Auto) Lymph % (Auto) [place] % (Auto) Eos % (Auto) Baso % (Auto) Neut # (Auto) Lymph # (Auto) [place] # (Auto) Eos # (Auto) Baso # (Auto) ESR PT INR APTT Sodium Potassium Chloride Carbon Dioxide BUN Creatinine Estimated GFR BUN/Creatinine Ratio Glucose Hemoglobin A1c Lactate 1.7 Calcium Magnesium 1.7 Total Bilirubin AST ALT Alkaline Phosphatase Total Creatine Kinase 953 H CK-MB (CK-2) 7.78 H CK-MB (CK-2) Rel Index 0.8 L Troponin I < 0.012 C-Reactive Protein NT-Pro-B Natriuret Pep 758 H Total Protein Albumin Globulin Albumin/Globulin Ratio Lipase Procalcitonin Urine Color Urine Appearance Urine pH Ur Specific [place] Urine Protein Urine Glucose (UA) Urine Ketones Urine Occult Blood Urine Nitrate Urine Bilirubin Urine Urobilinogen Ur Leukocyte Esterase Urine RBC Urine WBC Urine Bacteria Ur Culture Indicated? Ur Random Sodium Urine Creatinine Nasal Screen MRSA (PCR) SARS-CoV-2 (PCR) Influenza A (RT-PCR) Influenza B (RT-PCR) RSV (PCR) 07/02/22 07/02/22 07/02/22 20:15 20:15 20:15 WBC RBC Hgb Hct MCV MCH MCHC RDW Plt Count Neut % (Auto) Lymph % (Auto) [place] % (Auto) Eos % (Auto) Baso % (Auto) Neut # (Auto) Lymph # (Auto) [place] # (Auto) Eos # (Auto) Baso # (Auto) ESR 65 H PT INR APTT Sodium Potassium Chloride Carbon Dioxide BUN Creatinine Estimated GFR BUN/Creatinine Ratio Glucose Hemoglobin A1c 6.5 H Lactate Calcium Magnesium Total Bilirubin AST ALT Alkaline Phosphatase Total Creatine Kinase CK-MB (CK-2) CK-MB (CK-2) Rel Index Troponin I C-Reactive Protein 8.5 H NT-Pro-B Natriuret Pep Total Protein Albumin Globulin Albumin/Globulin Ratio Lipase Procalcitonin Urine Color Urine Appearance Urine pH Ur Specific [place] Urine Protein Urine Glucose (UA) Urine Ketones Urine Occult Blood Urine Nitrate Urine Bilirubin Urine Urobilinogen Ur Leukocyte Esterase Urine RBC Urine WBC Urine Bacteria Ur Culture Indicated? Ur Random Sodium Urine Creatinine Nasal Screen MRSA (PCR) SARS-CoV-2 (PCR) Influenza A (RT-PCR) Influenza B (RT-PCR) RSV (PCR) 07/02/22 07/02/22 07/02/22 20:36 21:21 21:21 WBC RBC Hgb Hct MCV MCH MCHC RDW Plt Count Neut % (Auto) Lymph % (Auto) [place] % (Auto) Eos % (Auto) Baso % (Auto) Neut # (Auto) Lymph # (Auto) [place] # (Auto) Eos # (Auto) Baso # (Auto) ESR PT INR APTT Sodium Potassium Chloride Carbon Dioxide BUN Creatinine Estimated GFR BUN/Creatinine Ratio Glucose Hemoglobin A1c Lactate Calcium Magnesium Total Bilirubin AST ALT Alkaline Phosphatase Total Creatine Kinase CK-MB (CK-2) CK-MB (CK-2) Rel Index Troponin I C-Reactive Protein NT-Pro-B Natriuret Pep Total Protein Albumin Globulin Albumin/Globulin Ratio Lipase Procalcitonin Urine Color Light brown Urine Appearance Cloudy Urine pH 8.5 H Ur Specific [place] 1.015 Urine Protein 1+ H Urine Glucose (UA) Negative Urine Ketones Negative Urine Occult Blood Trace-intact Urine Nitrate Negative Urine Bilirubin Negative Urine Urobilinogen 0.2 Ur Leukocyte Esterase Trace H Urine RBC 1-5/hpf Urine WBC 5-10/hpf H Urine Bacteria Many (>30) H Ur Culture Indicated? Specimen cultured Ur Random Sodium 35 Urine Creatinine 185.6 Nasal Screen MRSA (PCR) SARS-CoV-2 (PCR) Negative Influenza A (RT-PCR) Flu a negative Influenza B (RT-PCR) Flu b negative RSV (PCR) Negative 07/03/22 07/03/22 07/03/22 00:25 05:35 05:35 WBC 15.9 H RBC 3.57 L Hgb 8.3 L Hct 27.6 L MCV 77.4 L MCH 23.3 L MCHC 30.2 RDW 18.6 H Plt Count 369 Neut % (Auto) 86.5 H Lymph % (Auto) 7.7 L [place] % (Auto) 5.1 Eos % (Auto) 0.1 L Baso % (Auto) 0.6 Neut # (Auto) 96965 H Lymph # (Auto) 1200 [place] # (Auto) 800 Eos # (Auto) 0 Baso # (Auto) 100 ESR PT 14.1 H INR 1.2 APTT Sodium Potassium Chloride Carbon Dioxide BUN Creatinine Estimated GFR BUN/Creatinine Ratio Glucose Hemoglobin A1c Lactate Calcium Magnesium Total Bilirubin AST ALT Alkaline Phosphatase Total Creatine Kinase CK-MB (CK-2) CK-MB (CK-2) Rel Index Troponin I C-Reactive Protein NT-Pro-B Natriuret Pep Total Protein Albumin Globulin Albumin/Globulin Ratio Lipase Procalcitonin Urine Color Urine Appearance Urine pH Ur Specific [place] Urine Protein Urine Glucose (UA) Urine Ketones Urine Occult Blood Urine Nitrate Urine Bilirubin Urine Urobilinogen Ur Leukocyte Esterase Urine RBC Urine WBC Urine Bacteria Ur Culture Indicated? Ur Random Sodium Urine Creatinine Nasal Screen MRSA (PCR) Not detected SARS-CoV-2 (PCR) Influenza A (RT-PCR) Influenza B (RT-PCR) RSV (PCR) 07/03/22 07/03/22 07/03/22 05:35 05:35 05:35 WBC RBC Hgb Hct MCV MCH MCHC RDW Plt Count Neut % (Auto) Lymph % (Auto) [place] % (Auto) Eos % (Auto) Baso % (Auto) Neut # (Auto) Lymph # (Auto) [place] # (Auto) Eos # (Auto) Baso # (Auto) ESR PT INR APTT Sodium 140 Potassium 4.0 Chloride 113 H Carbon Dioxide 19 L BUN 28 H Creatinine 0.92 Estimated GFR > 60 BUN/Creatinine Ratio 30.4 H Glucose 135 H Hemoglobin A1c Lactate 0.9 Calcium 7.5 L Magnesium 1.7 Total Bilirubin 0.2 AST 35 ALT 30 Alkaline Phosphatase 82 Total Creatine Kinase 770 H CK-MB (CK-2) TNP CK-MB (CK-2) Rel Index TNP Troponin I < 0.012 C-Reactive Protein NT-Pro-B Natriuret Pep Total Protein 5.7 L Albumin 2.5 L Globulin 3.2 Albumin/Globulin Ratio 0.8 L Lipase Procalcitonin Urine Color Urine Appearance Urine pH Ur Specific [place] Urine Protein Urine Glucose (UA) Urine Ketones Urine Occult Blood Urine Nitrate Urine Bilirubin Urine Urobilinogen Ur Leukocyte Esterase Urine RBC Urine WBC Urine Bacteria Ur Culture Indicated? Ur Random Sodium Urine Creatinine Nasal Screen MRSA (PCR) SARS-CoV-2 (PCR) Influenza A (RT-PCR) Influenza B (RT-PCR) RSV (PCR) 07/03/22 07/03/22 05:35 11:00 WBC RBC Hgb Hct MCV MCH MCHC RDW Plt Count Neut % (Auto) Lymph % (Auto) [place] % (Auto) Eos % (Auto) Baso % (Auto) Neut # (Auto) Lymph # (Auto) [place] # (Auto) Eos # (Auto) Baso # (Auto) ESR PT INR APTT Sodium Potassium Chloride Carbon Dioxide BUN Creatinine Estimated GFR BUN/Creatinine Ratio Glucose Hemoglobin A1c Lactate Calcium Magnesium Total Bilirubin AST ALT Alkaline Phosphatase Total Creatine Kinase CK-MB (CK-2) CK-MB (CK-2) Rel Index Troponin I < 0.012 C-Reactive Protein NT-Pro-B Natriuret Pep Total Protein Albumin Globulin Albumin/Globulin Ratio Lipase Procalcitonin 5.60 H Urine Color Urine Appearance Urine pH Ur Specific [place] Urine Protein Urine Glucose (UA) Urine Ketones Urine Occult Blood Urine Nitrate Urine Bilirubin Urine Urobilinogen Ur Leukocyte Esterase Urine RBC Urine WBC Urine Bacteria Ur Culture Indicated? Ur Random Sodium Urine Creatinine Nasal Screen MRSA (PCR) SARS-CoV-2 (PCR) Influenza A (RT-PCR) Influenza B (RT-PCR) RSV (PCR) [facility] Medical History (Updated 07/03/22 @ 01:16 by Gaurav White DO) Bilateral lower extremity edema Chronic respiratory failure COPD (chronic obstructive pulmonary disease) Diabetes History of cellulitis History of congestive heart failure Hypertension Hypoxia Meningioma Morbidly obese Personal history of osteomyelitis Surgical History (Updated 07/02/22 @ 22:35 by SHAKIRA Decker) History of craniotomy Status post appendectomy Status post cholecystectomy Family History Daughter No problems noted. Son No problems noted. Mother Diabetes mellitus Congestive heart failure Father Diabetes mellitus Social History household members: children Smoking Status: Never smoker Assessment & Plan Assessment & Plan narrative: 1. Sepsis, secondary to urinary tract infection/buttock cellulitis, as evidenced by hypotension, acute metabolic encephalopathy, and leukocytosis Patient was initially admitted to acute care but rapidly developed severe hypotension and required transfer to ICU. She was placed on pressor support. Tele machine tool dresser consult was placed. Antibiotics were broadened to cefepime and vancomycin. Overall, sepsis physiology has improved. Blood pressures have normalized with above interventions. Imaging studies were challenging as patient had previously extensive hardware placement secondary to spine surgery which affected the quality of imaging. Await further culture data as noted. 2. Multiple buttock ulcers with associated cellulitis Local wound care interventions have been initiated. Patient is well covered with present antibiotics. She will undoubtedly require placement in a detention facility for rehab prior to discharging home. 3. MICHAEL Creatinine was 1.38 on admission. Has improved with treatment 2.92. MICHAEL has resolved. 4. Ground level falls,, recurrent, secondary to generalized weakness Will need PT and OT evaluations once her acute medical issues have improved. 5. Essential hypertension Antihypertensive medications have been held in the setting of hypotension requiring pressors 6. Chronic congestive heart failure, unknown if systolic or diastolic Might benefit from obtaining an echocardiogram to further elucidate her cardiac function. No echocardiogram in our records. 7. Diabetes mellitus type 2, insulin dependent Blood sugars have been well controlled. Continue controlled carb diet. Continue sliding scale insulin. 8. History of left temporal craniotomy secondary to meningioma, on seizure prophylaxis Keppra No evidence for seizure. Continue Keppra. 9. Chronic hypoxic respiratory failure Patient was reportedly on 2 L of oxygen via nasal cannula at baseline. On 2 L here as well. 10. Class 3 obesity BMI is 45.9. This does put her at higher risk for morbidity and mortality. 11. Recurrent UTIs UA revealed many bacteria, 5-10 white cells per high-powered field, trace leukocyte esterase, negative nitrites. Await culture results. 12. History of T6 osteomyelitis No present complaints of back pain. Would have low threshold for additional imaging if she begins complaining of localized back pain given the significant hardware in her spine. 13. Microcytic anemia She does have a low MCV. No clear active bleeding. Will send iron studies and stool guaiacs. Code status Full Prophylaxis Lovenox Disposition ICU Time Spent With Patient Critical Care time: I spent a total of [] minutes of critical care time on this patient's care today; this time is exclusive of procedural time.
[2022-07-03 17:09] LABS: HEMOLYSIS < 15 (0-50); Iron 13 ug/dL (37-170)
--- NOTE | 2022-07-03 17:11 | PM.ICURNDS ---
- :: This patient was seen via real time interactive two-way audiovisual telecommunication. Pt awake, NAd, weaned offp ressors this AM, and has been HD stable. would continue abx, f/u cx, and add midodrine if BP remains borderline.
[2022-07-03 17:19] LABS: Percent Iron Saturation 7 % (15-50); Total Iron Binding Capacity 190 ug/dL (265-497); Transferrin 133 mg/dL (206-381)
[2022-07-03 17:42] LABS: Ferritin 172 ng/mL (11-264)
[2022-07-03] MEDS: ONDANSETRON 4 MG/2 ML INJ IV (18:49)
[2022-07-03] MEDS: NOREPINEPHRINE BITARTRATE/D5W 4 MG/250 ML PLAST..BAG 7.5 MG IV (19:06)
[2022-07-03] MEDS: OXYCODONE IR 10 MG TABLET PO (19:39)
[2022-07-03] MEDS: ENOXAPARIN 40 MG/0.4 ML SYRINGE SUBCUT (21:15)
[2022-07-04] VITALS (49 sets, daily range): BP systolic 96–169; BP diastolic 45–71; PULSE 71–111; RESP 16–38; TEMP 36.8–37.5; O2SAT 77–97; BMI 46.2
[2022-07-04] MEDS: VANCOMYCIN 1,750 MG in SODIUM CHLORIDE 0.9% 500 ML 250 MG IV (02:30)
[2022-07-04] MEDS: CEFEPIME 1 GM in SODIUM CHLORIDE 0.9% 100 ML IV (03:07)
[2022-07-04] MEDS: OXYCODONE IR 10 MG TABLET PO ×3 (03:16→22:23)
[2022-07-04 06:45] LABS: Add Manual Diff / Slide Review NO; Basophils Absolute Auto 100 /uL (0-100); Basophils Percent Auto 1.2 % (0-2); Eosinophils Absolute Auto 200 /uL (0-450); Eosinophils Percent Auto 2.7 % (2-4); Hemoglobin 7.4 g/dL (12.0-16.0); Lymphocytes Absolute Auto 1500 /uL (1100-4500); Mean Corpuscular HGB Conc 30.8 % (30-36); Mean Corpuscular Hemoglobin 23.9 PG (26-34); Mean Corpuscular Volume 77.6 fL (80-100); Monocytes Absolute Auto 700 /uL (0-900); Monocytes Percent Auto 7.6 % (3-14); Neutrophils Absolute Auto 6200 /uL (1500-7000); Neutrophils Percent Auto 71.5 % (50-75); Platelet Count 382 X10^3/uL (150-400); Red Cell Distribution Width 18.4 % (11.6-14.8); White Blood Cell Count 8.7 X10^3/uL (4.5-11.0)
--- NOTE | 2022-07-04 06:53 | PC.NURSE ---
Pt has not slept well this shift and has exhibited a moderate amount of anxiety; she has been medicated twice for generalized pain and has slept briefly after each administration; she has complained of itching, mainly to her right side, under her breast and axilla, and to her abdomen, Nystatin powder applied; she remains on o2/2l/nc which is her home usage, and 2 mcg/min of norepinephrine; she verbalized willingness to discharge to a facility for rehab and strengthening; her daughter, Diana, would like to speak to the LIBRARY CIRCULATION ASSISTANT today if possible
[2022-07-04 06:55] LABS: Alanine Aminotransferase 26 IU/L (<35); Albumin 2.5 g/dL (3.5-5.0); Albumin Globulin Ratio 0.8 (1.0-2.8); Alkaline Phosphatase 85 U/L (38-126); Aspartate Aminotransferase 23 IU/L (14-36); BUN Creatinine Ratio 21.5 (6-22); Bilirubin Total 0.2 mg/dL (0.2-1.3); Blood Urea Nitrogen 17 mg/dL (7-17); Calcium 7.6 mg/dL (8.4-10.2); Carbon Dioxide 23 mmol/L (22-32); Chloride 110 mmol/L (98-107); Estimated Glomerular Filt Rate > 60 mL/min (>60); Globulin 3.2 g/dL (1.7-4.1); Glucose 103 mg/dL (80-110); HEMOLYSIS < 15 (0-50); Magnesium 1.6 mg/dL (1.6-2.3); Potassium 4.1 mmol/L (3.4-5.1); Sodium 137 mmol/L (137-145); Total Protein 5.7 g/dL (6.3-8.2)
--- NOTE | 2022-07-04 08:21 | P.PN_ITS ---
Subjective Subjective Interval history: Patient feeling a bit better today. Pressors weaned off. Downgraded from ICU status. Exam Vital Signs (past 8 hours): - 07/04/22 00:30 07/04/22 00:30 07/04/22 01:00 Temperature Pulse Rate 73 Respiratory Rate 16 Blood Pressure 102/51 L 102/46 L Pulse Oximetry 92 Oxygen Delivery Method Oxygen Flow Rate 1 1 1 07/04/22 01:00 07/04/22 01:21 07/04/22 01:30 Temperature Pulse Rate 72 75 84 Respiratory Rate 20 21 36 H Blood Pressure Pulse Oximetry 94 92 92 Oxygen Delivery Method Oxygen Flow Rate 1 1 1 07/04/22 01:30 07/04/22 02:00 07/04/22 02:00 Temperature Pulse Rate 80 Respiratory Rate 24 Blood Pressure 103/51 L 103/51 L Pulse Oximetry 92 Oxygen Delivery Method Oxygen Flow Rate 1 1 1 07/04/22 02:11 07/04/22 02:30 07/04/22 02:30 Temperature Pulse Rate 82 74 Respiratory Rate 24 23 Blood Pressure 104/50 L Pulse Oximetry 91 91 Oxygen Delivery Method Oxygen Flow Rate 1 1 1 07/04/22 03:00 07/04/22 03:00 07/04/22 03:01 Temperature Pulse Rate 79 80 Respiratory Rate 27 H 31 H Blood Pressure 108/55 L Pulse Oximetry 92 94 Oxygen Delivery Method Oxygen Flow Rate 1 1 1 07/04/22 03:30 07/04/22 03:30 07/04/22 04:00 Temperature Pulse Rate 83 79 Respiratory Rate 29 H 33 H Blood Pressure 104/55 L Pulse Oximetry 95 92 Oxygen Delivery Method Oxygen Flow Rate 2 2 2 07/04/22 04:00 07/04/22 04:23 07/04/22 04:00 Temperature 99.3 F Pulse Rate 76 Respiratory Rate 21 Blood Pressure 101/53 L Pulse Oximetry 95 Oxygen Delivery Method Nasal Cannula Oxygen Flow Rate 2 2 07/04/22 04:30 07/04/22 04:30 07/04/22 05:00 Temperature Pulse Rate 75 74 Respiratory Rate 22 20 Blood Pressure 96/51 L Pulse Oximetry 96 96 Oxygen Delivery Method Oxygen Flow Rate 2 2 2 07/04/22 05:00 07/04/22 05:01 07/04/22 05:30 Temperature Pulse Rate 75 Respiratory Rate 20 Blood Pressure 100/55 L 99/49 L Pulse Oximetry 96 Oxygen Delivery Method Oxygen Flow Rate 2 2 07/04/22 05:30 07/04/22 06:00 07/04/22 06:00 Temperature Pulse Rate 73 86 Respiratory Rate 20 32 H Blood Pressure 121/57 L Pulse Oximetry 96 94 Oxygen Delivery Method Oxygen Flow Rate 07/04/22 06:30 07/04/22 06:34 07/04/22 06:34 Temperature Pulse Rate 83 83 Respiratory Rate 38 H 26 H Blood Pressure 111/54 L Pulse Oximetry 95 95 Oxygen Delivery Method Oxygen Flow Rate 07/04/22 07:00 07/04/22 07:30 Temperature Pulse Rate 80 86 Respiratory Rate 27 H 36 H Blood Pressure Pulse Oximetry 93 94 Oxygen Delivery Method Oxygen Flow Rate Fraction of Inspired Oxygen 24 SaO2/FiO2 Ratio 383 Oxygen Delivery Method Nasal Cannula Oxygen Flow Rate 2 Narrative Exam Narrative: GEN: Chronically ill-appearing middle-aged female, Alert and oriented x 3 HEENT:NC, Face symmetric CHEST: Respiratory excursions symmetric, coarsened diminished but CTAB CV: RRR, no M/R/G ABD: Soft, obese, NT/ND, BT present in all 4 quadrants, body habitus limits exam EXTR: warm, well perfused, no C/C, chronic venous stasis changes with scaling and ulceration to the lower extremities bilaterally SKIN: warm and dry, candidal rash noted in her inferior pannus folds NEURO: nonfocal Objective Labs 07/04/22 06:31 07/04/22 06:31 Labs: Laboratory Results - last 24 hr 07/02/22 07/03/22 07/03/22 20:15 11:00 11:00 WBC RBC Hgb Hct MCV MCH MCHC RDW Plt Count Neut % (Auto) Lymph % (Auto) [place] % (Auto) Eos % (Auto) Baso % (Auto) Neut # (Auto) Lymph # (Auto) [place] # (Auto) Eos # (Auto) Baso # (Auto) Total Counted Seg Neutrophils % Band Neutrophils % Lymphocytes % (Manual) Atypical Lymphs % Monocytes % (Manual) Eosinophils % (Manual) Basophils % (Manual) Metamyelocytes % Myelocytes % Promyelocytes % Blast Cells % Neutrophils # (Manual) Nucleated RBCs Differential Comment Hypersegmented Neuts Reactive Lymphocytes Plasma Cells Smudge Cells Other Cell Type Toxic Granulation Toxic Vacuolation Dohle Bodies [place] Rods WBC Morphology Comment Platelet Estimate Clumped Platelets Plt Morphology Comment RBC Morphology Dimorphic RBCs Polychromasia Hypochromasia Poikilocytosis Basophilic Stippling Anisocytosis Microcytosis Macrocytosis Spherocytes Pappenheimer Bodies Sickle Cells Target Cells Tear Drop Cells Ovalocytes Stomatocytes Helmet Cells Stringer-Wanship Bodies [place] Rings [place] Cells Acanthocytes (Spur) Rouleaux Schistocytes Sodium Potassium Chloride Carbon Dioxide BUN Creatinine Estimated GFR BUN/Creatinine Ratio Glucose Calcium Magnesium Iron 13 L TIBC 190 L % Saturation 7 L Transferrin 133 L Ferritin 172 Total Bilirubin AST ALT Alkaline Phosphatase Troponin I < 0.012 Total Protein Albumin Globulin Albumin/Globulin Ratio 07/04/22 07/04/22 07/04/22 04:45 06:31 06:31 WBC Cancelled 8.7 RBC Cancelled 3.10 L Hgb Cancelled 7.4 L Hct Cancelled 24.0 L MCV Cancelled 77.6 L MCH Cancelled 23.9 L MCHC Cancelled 30.8 RDW Cancelled 18.4 H Plt Count Cancelled 382 Neut % (Auto) Cancelled 71.5 Lymph % (Auto) Cancelled 17.0 L [place] % (Auto) Cancelled 7.6 Eos % (Auto) Cancelled 2.7 Baso % (Auto) Cancelled 1.2 Neut # (Auto) Cancelled 6200 Lymph # (Auto) Cancelled 1500 [place] # (Auto) Cancelled 700 Eos # (Auto) Cancelled 200 Baso # (Auto) Cancelled 100 Total Counted Cancelled Seg Neutrophils % Cancelled Band Neutrophils % Cancelled Lymphocytes % (Manual) Cancelled Atypical Lymphs % Cancelled Monocytes % (Manual) Cancelled Eosinophils % (Manual) Cancelled Basophils % (Manual) Cancelled Metamyelocytes % Cancelled Myelocytes % Cancelled Promyelocytes % Cancelled Blast Cells % Cancelled Neutrophils # (Manual) Cancelled Nucleated RBCs Cancelled Differential Comment Cancelled Hypersegmented Neuts Cancelled Reactive Lymphocytes Cancelled Plasma Cells Cancelled Smudge Cells Cancelled Other Cell Type Cancelled Toxic Granulation Cancelled Toxic Vacuolation Cancelled Dohle Bodies Cancelled [place] Rods Cancelled WBC Morphology Comment Cancelled Platelet Estimate Cancelled Clumped Platelets Cancelled Plt Morphology Comment Cancelled RBC Morphology Cancelled Dimorphic RBCs Cancelled Polychromasia Cancelled Hypochromasia Cancelled Poikilocytosis Cancelled Basophilic Stippling Cancelled Anisocytosis Cancelled Microcytosis Cancelled Macrocytosis Cancelled Spherocytes Cancelled Pappenheimer Bodies Cancelled Sickle Cells Cancelled Target Cells Cancelled Tear Drop Cells Cancelled Ovalocytes Cancelled Stomatocytes Cancelled Helmet Cells Cancelled Stringer-Wanship Bodies Cancelled [place] Rings Cancelled [place] Cells Cancelled Acanthocytes (Spur) Cancelled Rouleaux Cancelled Schistocytes Cancelled Sodium 137 Potassium 4.1 Chloride 110 H Carbon Dioxide 23 BUN 17 Creatinine 0.79 Estimated GFR > 60 BUN/Creatinine Ratio 21.5 Glucose 103 Calcium 7.6 L Magnesium 1.6 Iron TIBC % Saturation Transferrin Ferritin Total Bilirubin 0.2 AST 23 ALT 26 Alkaline Phosphatase 85 Troponin I Total Protein 5.7 L Albumin 2.5 L Globulin 3.2 Albumin/Globulin Ratio 0.8 L [facility] Medical History (Updated 07/04/22 @ 09:57 by Lindsey Onofre MD) Bilateral lower extremity edema Chronic respiratory failure COPD (chronic obstructive pulmonary disease) Diabetes History of cellulitis History of congestive heart failure Hypertension Hypoxia Meningioma Morbidly obese Personal history of osteomyelitis Surgical History (Updated 07/02/22 @ 22:35 by SHAKIRA Decker) History of craniotomy Status post appendectomy Status post cholecystectomy Family History Daughter No problems noted. Son No problems noted. Mother Diabetes mellitus Congestive heart failure Father Diabetes mellitus Social History household members: children Smoking Status: Never smoker Assessment & Plan Assessment & Plan narrative: 1. Sepsis, secondary to urinary tract infection/buttock cellulitis, as evidenced by hypotension, acute metabolic encephalopathy, and leukocytosis Patient was initially admitted to acute care but rapidly developed severe hypotension and required transfer to ICU. She was placed on pressor support but this is now weaned off. Antibiotics were broadened to cefepime and vancomycin. Overall, sepsis physiology has improved. Blood pressures have normalized with above interventions. Imaging studies were challenging as patient had previously extensive hardware placement secondary to spine surgery which affected the quality of imaging. Urine culture growing GNB and wound culture growing staph aureus and GNB. 2. Multiple buttock ulcers with associated cellulitis Local wound care interventions have been initiated. Patient is well covered with present antibiotics. She will undoubtedly require placement in a half-way facility for rehab prior to discharging home. 3. MICHAEL Creatinine was 1.38 on admission. Has improved with treatment 2 and MICHAEL has now resolved. 4. Ground level falls, recurrent, secondary to generalized weakness PT/OT evals ordered. 5. Essential hypertension Antihypertensive medications have been held in the setting of hypotension requiring pressors 6. Chronic congestive heart failure, unknown if systolic or diastolic Echo pending read. Holding home coreg and losartan due to hypotension. 7. Diabetes mellitus type 2, insulin dependent Blood sugars have been well controlled. Continue controlled carb diet. Continue sliding scale insulin. 8. History of left temporal craniotomy secondary to meningioma, on seizure prophylaxis Keppra No evidence for seizure. Continue Keppra. 9. Chronic hypoxic respiratory failure Patient was reportedly on 2 L of oxygen via nasal cannula at baseline. On 2 L here as well. 10. Class 3 obesity BMI is 45.9. This does put her at higher risk for morbidity and mortality. 11. Recurrent UTIs Ucx with >100k GNB's. Await species identification. 12. History of T6 osteomyelitis No present complaints of back pain. Would have low threshold for additional imaging if she begins complaining of localized back pain given the significant hardware in her spine. 13. Microcytic anemia She does have a low MCV. No clear active bleeding. Iron studies suggest anemia of chronic disease. Monitor Hgb. Code status Full Prophylaxis Lovenox Disposition Pending therapy evals but likely dc in 2-3 days. Time Spent With Patient Critical Care time: I spent a total of [] minutes of critical care time on this patient's care today; this time is exclusive of procedural time.
--- NOTE | 2022-07-04 09:06 | DI.ECHO.S_ITS ---
Interpretation Summary The ejection fraction is estimated to be 60-65%. Left ventricular wall motion is normal. There has been no significant change since the previous exam. There is mild tricuspid regurgitation. The right ventricular systolic pressure is estimated to be at least 52 mmHg based on an estimated right atrial pressure of 8 mm Hg. Compared to the prior echo exam, there has been an increase in the severity of pulmonary hypertension. There is a trace pericardial effusion that is circumferential. Procedure: A two-dimensional transthoracic echocardiogram with color flow and Doppler was performed. The study quality was technically difficult. Comparison is made with the echocardiogram of 09/08/2018. The patient was in sinus rhythm with heart rates between 84-103 bpm during the exam. Left Ventricle: Left ventricular wall thickness is mildly increased. The ejection fraction is estimated to be 60-65%. There has been no significant change since the previous exam. Left ventricular wall motion is normal. Right Ventricle: The right ventricle is not well visualized. The right ventricular systolic function is normal. Atria: The left atrial size is normal. Right atrium not well visualized. There is no Doppler evidence for an interatrial shunt. Mitral Valve: The mitral valve leaflets appear mildly thickened, but open well. There is mild mitral annular calcification. There is no mitral regurgitation noted. Aortic Valve: The aortic valve opens well. The aortic valve is slightly calcified. There is no aortic valve stenosis. No aortic regurgitation is present. Tricuspid Valve: The tricuspid valve is not well visualized, but is grossly normal. There is mild tricuspid regurgitation. The right ventricular systolic pressure is estimated to be at least 52 mmHg based on an estimated right atrial pressure of 8 mm Hg. Compared to the prior echo exam, there has been an increase in the severity of pulmonary hypertension. Pulmonic Valve: The pulmonic valve is not well visualized. There is no pulmonic valvular regurgitation. Great Vessels: The aortic root is normal size. The dimensions of the ascending aorta are normal. The IVC is dilated (diameter is greater than 2.1 cm) yet it collapses greater than 50% with a sniff. This suggests a right atrial pressure of 8 mm Hg. Pericardium/ Pleura There is a trace pericardial effusion that is circumferential. There is no pleural effusion. MMode/2D Measurements & Calculations LVIDd: 5.4 cm LVOT diam: 2.0 cm LVIDs: 3.4 cm Ao root diam: 2.9 cm FS: 37.5 % asc Aorta Diam: 2.8 cm IVSd: 0.76 cm Ao Arch Diam (Prox Trans): 3.2 cm LVPWd: 1.1 cm LV sears. diameter/BSA (cm/m^2): 2.4 LV sys. diameter/BSA (cm/m^2): 1.5 LA A2 area: 19.5 cm2 IVC diam: 2.4 cm LA A4 area: 21.0 cm2 LA length (vol): 5.6 cm LA vol: 62.2 ml LA vol index: 27.4 ml/m2 TAPSE: 2.0 cm Doppler Measurements & Calculations Ao V2 max: 221.5 cm/sec LVOT Max James: 123.9 cm/sec Ao V2 mean: 142.5 cm/sec LV V1 max P.1 mmHg Ao max P.7 mmHg LV V1 VTI: 22.4 cm Ao mean P.6 mmHg BRYNN(I,D): 1.9 cm2 Ao V2 VTI: 36.6 cm BRYNN(V,D): 1.7 cm2 sev ratio: 0.61 BRYNN indexed to BSA (cm^2/m^2): 0.83 MV E max james: 139.7 cm/sec TR max james: 330.8 cm/sec MV A max james: 118.3 cm/sec TR max P.8 mmHg MV E/A: 1.2 PA V2 max: 155.4 cm/sec Med Peak E' James: 6.8 cm/sec PA V2 mean: 104.2 cm/sec E/E' med: 20.4 PA mean P.9 mmHg Lat Peak E' James: 6.0 cm/sec E/E' lat: 23.2 E/e' average: 21.8 MV dec time: 0.16 sec MVA(VTI): 2.1 cm2 MV V2 mean: 100.8 cm/sec SV(LVOT): 68.6 ml MV mean P.5 mmHg MV V2 VTI: 32.4 cm Reading Physician:01:27 PM
[2022-07-04] MEDS: CEFEPIME 2 GM in SODIUM CHLORIDE 0.9% 100 ML IV ×2 (09:48→21:11)
[2022-07-04] MEDS: levETIRAcetam 250 MG TABLET 750 MG PO ×2 (09:49→21:11)
[2022-07-04] MEDS: POTASSIUM CHLORIDE 10 MEQ TAB PO ×2 (09:49→21:11)
[2022-07-04] MEDS: FERROUS SULFATE 325 MG TABLET PO (09:49)
[2022-07-04] MEDS: ENOXAPARIN 40 MG/0.4 ML SYRINGE SUBCUT ×2 (09:49→21:12)
[2022-07-04] MEDS: GABAPENTIN 300 MG CAPSULE PO ×3 (09:49→21:12)
--- NOTE | 2022-07-04 09:49 | P.TELICUPN_ITS ---
Subjective Subjective IF CAMERA ACTIVATED, patient seen via real-time interactive audiovisual communication: Camera activated Date Patient Seen: 07/04/22 Consent obtained for tele-operator/assistant foreman care: Yes Patient Location: ICU Provider location (State): [place] Other participants/roles: Bedside RN Interval history: Patient was back on low dose levophed overnight- 2mcg/min, however has been weaned off again around 8 am. Most recent BP 133/58 Current Medications Current Medications Medications: Home Medications carvedilol 25 mg tablet 25 mg PO BID 09/20/18 [History Confirmed 07/03/22] potassium chloride 10 mEq tablet,extended release(part/cryst) 10 meq PO BID 09/20/18 [History Confirmed 07/03/22] insulin lispro 100 unit/mL subcutaneous solution 10 units SUBCUT 3-4XD PRN Hyperglycemia 10/10/18 [History Confirmed 07/03/22] gabapentin 300 mg capsule 300 mg PO TID 04/07/20 [History Confirmed 07/03/22] hydralazine 25 mg tablet 25 mg PO TID #90 tabs 04/07/20 [Rx Confirmed 05/16/20] losartan 100 mg tablet 100 mg PO QAM 04/07/20 [History Confirmed 07/03/22] acetaminophen 325 mg capsule 650 mg PO Q4H PRN Pain, Moderate 05/16/20 [History Confirmed 07/03/22] amlodipine 10 mg tablet 10 mg PO QAM 05/16/20 [History Confirmed 07/03/22] ferrous sulfate 324 mg (65 mg iron) tablet,delayed release 324 mg PO QAM 05/16/20 [History Confirmed 07/03/22] furosemide 20 mg tablet 20 mg PO QAM PRN Edema 05/16/20 [History Confirmed 07/03/22] levetiracetam 750 mg tablet 750 mg PO BID 05/16/20 [History Confirmed 07/03/22] oxycodone 5 mg tablet 2.5 - 5 mg PO Q6H PRN Pain (Scale Score 7-10) 05/16/20 [History Confirmed 07/03/22] oxygen-air delivery systems 05/16/20 [History Confirmed 07/03/22] Visit Medications (administered) Generic Name Dose Route Start Last Admin Trade Name Freq PRN Reason Stop Dose Admin Acetaminophen 650 mg 07/02/22 21:38 07/03/22 09:33 Acetaminophen 325 Mg Tablet PO 650 mg Q6H PRN Administration Fever/Mild Pain (1-3) Enoxaparin Sodium 40 mg 07/03/22 09:00 07/03/22 21:15 Enoxaparin 40 Mg/0.4 Ml Syringe SUBCUT 40 mg BID KARTHIKEYAN Administration Ferrous Sulfate 325 mg 07/03/22 09:00 07/03/22 08:35 Ferrous Sulfate 325 Mg Tablet PO 325 mg DAILY KARTHIKEYAN Administration Gabapentin 300 mg 07/02/22 22:15 07/03/22 21:15 Gabapentin 300 Mg Capsule PO 300 mg TID KARTHIKEYAN Administration Sodium Chloride 1,000 mls @ 60 mls/hr 07/02/22 21:45 07/03/22 01:50 Normal Saline 0.9% IV 60 mls/hr CONT KARTHIKEYAN Administration NOREPINEPHRINE BITARTRATE/D5W 4 mg in 250 mls @ 30 mls/hr 07/03/22 01:57 07/04/22 08:43 Levophed IV 1 mcg/min TITRATE KARTHIKEYAN 3.75 mls/hr Titration Protocol 8 MCG/MIN Vancomycin HCl 1,750 mg/ 500 mls @ 250 mls/hr 07/04/22 02:00 07/04/22 02:30 Sodium Chloride IV 250 mls/hr Q24H KARTHIKEYAN Administration Levetiracetam 750 mg 07/02/22 23:29 07/03/22 21:15 Levetiracetam 250 Mg Tablet PO 750 mg BID KARTHIKEYAN Administration Ondansetron HCl 4 mg 07/02/22 21:38 07/03/22 18:49 Ondansetron 4 Mg/2 Ml Inj IV 4 mg Q4HR PRN Administration Nausea And Vomiting Oxycodone HCl 5 mg 07/03/22 12:09 07/03/22 12:44 Oxycodone Ir 5 Mg Tablet PO 5 mg Q4HR PRN Administration Pain, Moderate (4-6) Oxycodone HCl 10 mg 07/03/22 12:10 07/04/22 03:16 Oxycodone Ir 10 Mg Tablet PO 10 mg Q4HR PRN Administration Pain, Severe (7-10) Potassium Chloride 10 meq 07/03/22 09:00 07/03/22 21:15 Potassium Chloride 10 Meq Tab PO 10 meq BID KARTHIKEYAN Administration Objective Labs 07/04/22 06:31 07/04/22 06:31 Labs: Laboratory Results - last 24 hr 07/02/22 07/03/22 07/03/22 20:15 11:00 11:00 WBC RBC Hgb Hct MCV MCH MCHC RDW Plt Count Neut % (Auto) Lymph % (Auto) Pepin % (Auto) Eos % (Auto) Baso % (Auto) Neut # (Auto) Lymph # (Auto) Pepin # (Auto) Eos # (Auto) Baso # (Auto) Total Counted Seg Neutrophils % Band Neutrophils % Lymphocytes % (Manual) Atypical Lymphs % Monocytes % (Manual) Eosinophils % (Manual) Basophils % (Manual) Metamyelocytes % Myelocytes % Promyelocytes % Blast Cells % Neutrophils # (Manual) Nucleated RBCs Differential Comment Hypersegmented Neuts Reactive Lymphocytes Plasma Cells Smudge Cells Other Cell Type Toxic Granulation Toxic Vacuolation Dohle Bodies [place] Rods WBC Morphology Comment Platelet Estimate Clumped Platelets Plt Morphology Comment RBC Morphology Dimorphic RBCs Polychromasia Hypochromasia Poikilocytosis Basophilic Stippling Anisocytosis Microcytosis Macrocytosis Spherocytes Pappenheimer Bodies Sickle Cells Target Cells Tear Drop Cells Ovalocytes Stomatocytes Helmet Cells [facility] Bodies [place] Rings [place] Cells Acanthocytes (Spur) Rouleaux Schistocytes Sodium Potassium Chloride Carbon Dioxide BUN Creatinine Estimated GFR BUN/Creatinine Ratio Glucose Calcium Magnesium Iron 13 L TIBC 190 L % Saturation 7 L Transferrin 133 L Ferritin 172 Total Bilirubin AST ALT Alkaline Phosphatase Troponin I < 0.012 Total Protein Albumin Globulin Albumin/Globulin Ratio 07/04/22 07/04/22 07/04/22 04:45 06:31 06:31 WBC Cancelled 8.7 RBC Cancelled 3.10 L Hgb Cancelled 7.4 L Hct Cancelled 24.0 L MCV Cancelled 77.6 L MCH Cancelled 23.9 L MCHC Cancelled 30.8 RDW Cancelled 18.4 H Plt Count Cancelled 382 Neut % (Auto) Cancelled 71.5 Lymph % (Auto) Cancelled 17.0 L Pepin % (Auto) Cancelled 7.6 Eos % (Auto) Cancelled 2.7 Baso % (Auto) Cancelled 1.2 Neut # (Auto) Cancelled 6200 Lymph # (Auto) Cancelled 1500 Pepin # (Auto) Cancelled 700 Eos # (Auto) Cancelled 200 Baso # (Auto) Cancelled 100 Total Counted Cancelled Seg Neutrophils % Cancelled Band Neutrophils % Cancelled Lymphocytes % (Manual) Cancelled Atypical Lymphs % Cancelled Monocytes % (Manual) Cancelled Eosinophils % (Manual) Cancelled Basophils % (Manual) Cancelled Metamyelocytes % Cancelled Myelocytes % Cancelled Promyelocytes % Cancelled Blast Cells % Cancelled Neutrophils # (Manual) Cancelled Nucleated RBCs Cancelled Differential Comment Cancelled Hypersegmented Neuts Cancelled Reactive Lymphocytes Cancelled Plasma Cells Cancelled Smudge Cells Cancelled Other Cell Type Cancelled Toxic Granulation Cancelled Toxic Vacuolation Cancelled Dohle Bodies Cancelled Dueyn Rods Cancelled WBC Morphology Comment Cancelled Platelet Estimate Cancelled Clumped Platelets Cancelled Plt Morphology Comment Cancelled RBC Morphology Cancelled Dimorphic RBCs Cancelled Polychromasia Cancelled Hypochromasia Cancelled Poikilocytosis Cancelled Basophilic Stippling Cancelled Anisocytosis Cancelled Microcytosis Cancelled Macrocytosis Cancelled Spherocytes Cancelled Pappenheimer Bodies Cancelled Sickle Cells Cancelled Target Cells Cancelled Tear Drop Cells Cancelled Ovalocytes Cancelled Stomatocytes Cancelled Helmet Cells Cancelled [facility] Bodies Cancelled [place] Rings Cancelled [place] Cells Cancelled Acanthocytes (Spur) Cancelled Rouleaux Cancelled Schistocytes Cancelled Sodium 137 Potassium 4.1 Chloride 110 H Carbon Dioxide 23 BUN 17 Creatinine 0.79 Estimated GFR > 60 BUN/Creatinine Ratio 21.5 Glucose 103 Calcium 7.6 L Magnesium 1.6 Iron TIBC % Saturation Transferrin Ferritin Total Bilirubin 0.2 AST 23 ALT 26 Alkaline Phosphatase 85 Troponin I Total Protein 5.7 L Albumin 2.5 L Globulin 3.2 Albumin/Globulin Ratio 0.8 L Exam Vital Signs (past 8 hours): - 07/04/22 02:00 07/04/22 02:00 07/04/22 02:11 Temperature Pulse Rate 80 82 Respiratory Rate 24 24 Blood Pressure 103/51 L Pulse Oximetry 92 91 Oxygen Delivery Method Oxygen Flow Rate 1 1 1 07/04/22 02:30 07/04/22 02:30 07/04/22 03:00 Temperature Pulse Rate 74 Respiratory Rate 23 Blood Pressure 104/50 L 108/55 L Pulse Oximetry 91 Oxygen Delivery Method Oxygen Flow Rate 1 1 1 07/04/22 03:00 07/04/22 03:01 07/04/22 03:30 Temperature Pulse Rate 79 80 Respiratory Rate 27 H 31 H Blood Pressure 104/55 L Pulse Oximetry 92 94 Oxygen Delivery Method Oxygen Flow Rate 1 1 2 07/04/22 03:30 07/04/22 04:00 07/04/22 04:00 Temperature 99.3 F Pulse Rate 83 79 Respiratory Rate 29 H 33 H Blood Pressure 101/53 L Pulse Oximetry 95 92 Oxygen Delivery Method Oxygen Flow Rate 2 2 2 07/04/22 04:23 07/04/22 04:00 07/04/22 04:30 Temperature Pulse Rate 76 75 Respiratory Rate 21 22 Blood Pressure Pulse Oximetry 95 96 Oxygen Delivery Method Nasal Cannula Oxygen Flow Rate 2 2 07/04/22 04:30 07/04/22 05:00 07/04/22 05:00 Temperature Pulse Rate 74 Respiratory Rate 20 Blood Pressure 96/51 L 100/55 L Pulse Oximetry 96 Oxygen Delivery Method Oxygen Flow Rate 2 2 2 07/04/22 05:01 07/04/22 05:30 07/04/22 05:30 Temperature Pulse Rate 75 73 Respiratory Rate 20 20 Blood Pressure 99/49 L Pulse Oximetry 96 96 Oxygen Delivery Method Oxygen Flow Rate 2 07/04/22 06:00 07/04/22 06:00 07/04/22 06:30 Temperature Pulse Rate 86 83 Respiratory Rate 32 H 38 H Blood Pressure 121/57 L Pulse Oximetry 94 95 Oxygen Delivery Method Oxygen Flow Rate 07/04/22 06:34 07/04/22 06:34 07/04/22 07:00 Temperature Pulse Rate 83 80 Respiratory Rate 26 H 27 H Blood Pressure 111/54 L Pulse Oximetry 95 93 Oxygen Delivery Method Oxygen Flow Rate 07/04/22 07:30 Temperature Pulse Rate 86 Respiratory Rate 36 H Blood Pressure Pulse Oximetry 94 Oxygen Delivery Method Oxygen Flow Rate Fraction of Inspired Oxygen 24 SaO2/FiO2 Ratio 383 Oxygen Delivery Method Nasal Cannula Oxygen Flow Rate 2 Resp Effort & Inspection: normal respiratory effort General Yes Resp Normal respiratory effort: Yes Assessment & Plan Assessment and plan (1) Cellulitis: Status: Acute Plan: Cellulitis, Decubitus ulcers, buttocks leading to septic shock. Shock resolved Patient off pressors- Wound cultures with Staph aureus and Gram neg bacillus, prelim. continue vanco and cefepime until cultures/sensitivity final wound care PT/OT for mobilization (2) Acute UTI: Status: Acute Plan: GNB, continue abx as above (3) Acute and chronic respiratory failure: Qualifiers: Respiratory failure complication: hypoxia Qualified Code(s): J96.21 - Acute and chronic respiratory failure with hypoxia Status: Acute Plan: Has h/o COPD, CHFR, currently on Nasal Canula no respiratory distress (4) Acute kidney injury: Status: Acute Plan: MICHAEL resolved, Cr now WNL (5) Anemia: Status: Acute Plan: Baseline anemia, iron deficiency Hgb drop likely in part dilutional this admission due to fluid resuscitation would check pm HGB, transfuse if <7 COntinue iron Assessment & Plan narrative: Overall Septic shock resolving,- able to turn off vasopressors this am. WBC normalized. MICHAEL resolved. respiratory status stable Kerwin ortega downgrade from ICU today Time Spent With Patient Critical Care time: I spent a total of [31] minutes of critical care time on this patient's care today; this time is exclusive of procedural time.
--- NOTE | 2022-07-04 12:02 | OT.IPNOTE ---
Pt just finished moving in bed for nursing needs and not ready to get up for therapy evals at this time and to check on the pt later.
--- NOTE | 2022-07-04 13:36 | DIET.CONS ---
Addendum entered by Tamika Tse 07/04/22 14:00: RD agrees with customer operations intern note below. Original Note: Dietary Consultation Note Admission Date: 07/02/2022 21:20 Assessment: 61 y/o pt admitted for sepsis without shock, multiple GLF, cellulitis, MICHAEL, weakness, with failure to thrive. RD consulted for BMI 45.9. Met with pt bedside to discuss current dietary intake. Pt reports decreased appetite in past week, however, has been eating pretty good since hospitalization. Pt avoids nuts which causes diarrhea and beans to avoid diverticulitis exacerbation. Pt will occasionally drink Boost at home. Wound care photos show extensive skin breakdown in all folds, in addition to chronic venous stasis in legs. ABW: 74 kg Ht: 165.1 cm Wt: 126 kg BMI: 45.8 Last BM: 07/02/22 (07/02/22 23:00) MNA: 13 Jassi Score: 12 Diet: 07/02/22 Breakfast Fluid Restriction Diet Diet Modifications: Total fluid amount: 2,000 Amount allotted to patient trays: 100 Free water included in total: Yes Fluid in addition to trays: 3210-9123 amount: 850 1831-8145 amount: 850 07/03/22 Breakfast Carbohydrate Consistent Diet Diet Modifications: Carbohydrate level: Small (2 CHO) Nutrition Percent Meal Consumed 100% 07/04/22 08:31 Percent Meal Consumed 25% 07/03/22 18:00 Labs: RBC 3.10 X10^6/uL (4.0-5.2) L 07/04/22 06:31 Hgb 7.4 g/dL (12.0-16.0) L 07/04/22 06:31 Hct 24.0 % (36-46) L 07/04/22 06:31 Creatinine 0.79 mg/dL (0.52-1.04) 07/04/22 06:31 Hemoglobin A1c 6.5 % (4.0-6.0) H 07/02/22 20:15 Lactate 0.9 mmol/L (0.7-2.1) 07/03/22 05:35 Iron 13 ug/dL (37-170) L 07/02/22 20:15 % Saturation 7 % (15-50) L 07/02/22 20:15 Ferritin 172 ng/mL (11-264) 07/03/22 11:00 NT-Pro-B Natriuret Pep 758 pg/mL (<125) H 07/02/22 20:15 Nutrition Diagnosis: Increased nutrients needs (protein) r/t cellulitis with open wounds aeb chronic lower extremity cellulitis, likely inadequate protein intake to support wound healing, the need for ONS for support. Interventions: 1. Discussed the importance for adequate protein intake to support wound healing. 2. Discussed sources of protein. 3. Recc ONS (Ensure or Boost) for protein while at home. 4. ONS Ensure Max 1x/d while hospitalized. Recc bariatric formula for BMI and T2DM, provided coupons for home use. EER: 90-110 g protein (1.2-1.5 g/kg) Monitoring/Evaluations: ONS tolerance. Electronically Signed by: Evelyn Post 07/04/22 13:36 Clinical Dietitian [address] [id number]
[2022-07-04] MEDS: MAGNESIUM SULFATE 2 GM/50 ML PIGGYBACK IV (13:52)
[2022-07-04] MEDS: VANCOMYCIN 1,500 MG/300 ML PIGGYBACK 200 MG IV (13:52)
[2022-07-04] MEDS: SODIUM CHLORIDE 0.9% 1,000 ML 60 ML IV (13:53)
--- NOTE | 2022-07-04 13:53 | PT.IIE ---
Current Diagnoses Sepsis, unspecified organism (07/02/22) Anemia, unspecified (07/02/22) Acute and chronic respiratory failure with hypoxia (07/02/22) Cellulitis, unspecified (07/02/22) Acute kidney failure, unspecified (07/02/22) Urinary tract infection, site not specified (07/02/22) Surgical History (Last Updated 07/02/22 @ 22:35 by SHAKIRA Decker) History of craniotomy Status post appendectomy Status post cholecystectomy Medical History (Last Updated 07/02/22 @ 22:35 by SHAKIRA Decker) Bilateral lower extremity edema Chronic respiratory failure COPD (chronic obstructive pulmonary disease) Diabetes History of cellulitis History of congestive heart failure Hypertension Hypoxia Meningioma Morbidly obese Personal history of osteomyelitis Physical Therapy Inpatient Evaluation/Re-Eval M1 PT/OT-IP Prior Functional Status Start: 07/04/22 08:12 Freq: NEEDED Status: Active Protocol: Document 07/04/22 13:54 [facility] (Rec: 07/04/22 14:34 [facility] [id number]) Medical Review Prior Functional Status Communication independent Mobility and Gait Pt has a manual wc for long distances and appointment and uses a 4ww in the house per pt . Activities of Daily Living and IADL's Pt states does the best she can in order to do her ADL needs. Pt states her daughter is present during showers, gets her meds and help with finances. Social History Household Members children Living Arrangements House Number of Floors (Floors) One Floor Number of Stairs To Enter/Railing? one step Home Environment Tub/Shower Home Equipment Four Wheel Walker,Manual Wheelchair,Bedside Commode, Raised Toilet Seat Without Armrests,Tub Transfer Bench, Hand Held Shower,Grab Bars In Shower Additional Social History Comment Pt having multiple falls in the past 2 days. M2 PT-IP Current Condition Start: 07/04/22 08:12 Freq: NEEDED Status: Active Protocol: Document 07/04/22 13:53 AW (Rec: 07/04/22 14:44 AW [id number]) Physical Therapy Current Condition Current Condition Evaluation Date 07/04/22 Treatment Diagnosis UTI, sepsis, multiple pressure injuries, impaired mobility and gait Onset Date 07/02/22 M3 PT-IP Subjective Start: 07/04/22 08:12 Freq: NEEDED Status: Active Protocol: Document 07/04/22 13:53 AW (Rec: 07/04/22 14:44 AW [id number]) Subjective Physical Therapy Visit Type Type Initial Evaluation Visit Start Time 13:13 Visit Stop Time 13:53 Total Visit Minutes 40 Notes Pt seen with OT due to pt's complex mobility needs and poor activity tolerance. Number of BLACKTOP SPREADER Visits 0 Physical Therapy Visit Comments Patient Comments Pt is willing to participate with PT Patient Goals Pt is hopeful to discharge to SNF for continued rehab. I was doing so good when I had PT before. Therapy Pain Assessment Pain When Pain Assessed At Rest Pain Present Pain Present Pain Reported Location Generalized Intensity 6 Scale Used Numeric (0 - 10) Pain Management Techniques Distraction,Modification of Treatment,Re-positioning M4 PT-IP Mobility and Gait Start: 07/04/22 08:12 Freq: NEEDED Status: Active Protocol: Document 07/04/22 13:53 AW (Rec: 07/04/22 14:44 AW [id number]) PT-Bed Mobility Assessment Rolling Type of Rolling Roll to Left Level of Assist Maximal Assistance Supine to Sit Supine to Sit Maximum Assistance,1 Person Assistance,Head of Bed Elevated,Bedrails Sit to Supine Sit to Supine Maximum Assistance,2 Person Assistance Scooting Scooting Up and Down in Bed Maximum Assistance PT-Transfer Assessment Sit to and From Stand Sit to and from Stand Maximum Assistance,2 Person Assistance Comments Mobility Comments Pt was lying in bed as PT and OT arrived. She complained of pain in her bilateral buttocks and legs associated with multiple pressure injuries. Therapists used bed tilt feature to assist with roll toward the left side. Pt needed max assist to roll and to complete supine <> sit transfer with HOB elevated and heavy use of bed rail. Once sitting, she needed a step under her feet due to the height of the bed. With her feet supported, she was able to sit independently with intermittent use of the bed rail and bed cane for support. She tolerated sitting ~10 minutes before agreeing to trial sit to stand. With step under her feet and bed raised, pt attempted to stand using FWW but was barely able to decrease pressure on her buttocks. PT and OT used draw pad to return her to supine max A x 2. Once supine, pt was able to bridge her hips enough to assist with boosting toward HOB but still needed max assist. OT installed a trapeze bar and pt was able to participate more in repositioning. Encouraged pt to continue with bridging exercise and use of trapeze bar for pressure relief. Pt was left with nursing attending. Gait Assessment Comments Gait Comments Unable at this time. PT-Balance Assessment Sitting Balance and Reactions Static Sitting Balance Ability Good Dynamic Sitting Balance Ability Fair Standing Balance and Reactions Static Standing Balance Ability Poor Device Used FWW M5 PT-IP Objective Assessments Start: 07/04/22 08:12 Freq: NEEDED Status: Active Protocol: Document 07/04/22 13:53 AW (Rec: 07/04/22 14:44 AW [id number]) Orientation Orientation/Cognition Level of Alertness Alert Orientation Name,Month,Place,Situation Language Function Ability No Deficits Noted Safety Awareness Understands Safety Issues Comments Pt presents with heightened anxiety. She seems to associate her wounds with sliding off her lift recliner. Gross Range of Motion Lower Extremity ROM Assessment Bilaterally Impaired Impairments Lacking 5-10 degrees knee extension LLE. Lacking TKE RLE . Strength Lower Extremity Strength Assessment Bilaterally Impaired Hip 3+/5 Knee 4-/5 extension and flexion Ankle 4/5 DF; 3/5 PF Sensation Assessment Sensation Gross Sensation Right LE Impaired,Left LE Impaired Comments Sensation Comments Dull light touch sensation BLE in gaiter distribution. Other Assessments Other Other Assessments Hyperkeratosis and edema present BLE. M6 PT-IP Treatment Start: 07/04/22 08:12 Freq: NEEDED Status: Active Protocol: Document 07/04/22 13:53 AW (Rec: 07/04/22 14:44 AW [id number]) Physical Therapy Treatment Education Education Provided Safety Other Treatments Other Treatment Performed Pt completed ankle pumps, hamstring sets, quad sets, and partial bridges x 8 each BLE in preparation for and during bed mobility. M7 PT-IP Assessment and Plan Start: 07/04/22 08:12 Freq: NEEDED Status: Active Protocol: Document 07/04/22 13:53 AW (Rec: 07/04/22 14:44 AW [id number]) PT Summary Assessment and Plan Potential Rehabilitation Potential Good Status of Condition at Evaluation Evolving Summary Impairments Pain,ROM,Strength,Balance, Sensation,Bed Mobility, Transfers,Gait,Activity Tolerance Assessment Summary Rocío is a 61 yo woman admitted with sepsis secondary to UTI, multiple pressure injuries, and altered mental status. Hypotension was treated with pressors but pt has been weaned off as of today. PMH includes COPD (2L/ min O2 at baseline), CHF, BMI> 45, DM2, and meningioma s/p left temporal craniotomy. PLOF : Pt lives with her daughter in a single level home. She uses a 4WW for limited household mobility. She endorses multiple recent falls . She sleeps in a lift recliner. Her daughter assists with IADL's. Pt states she has been independent with ADL' s. CLOF: Pt is requiring max assist x 1-2 for bed mobility but is able to support herself independently once sitting. She was unable to stand with FWW today in spite of max assist x 2 provided. She is highly motivated to participate with therapies and is an excellent rehab candidate. In the context of severe debility compared with baseline function and need for ongoing wound care, PT recommending SNF rehab at discharge from acute care. Will continue to work with pt on strengthening, bed mobility , and transfers. Goals Bed Mobility Goal Minimal Assistance Transfer Goal Contact Guard Assistance,Front Wheeled Walker Gait Goal Contact Guard Assistance,Front Wheel Walker Gait Distance 25 Other Goals - improve transfers and gait to SBA with 4WW Days to Meet Goals 10 Frequency of Treatment Frequency Of Treatment Once a Day Treatment Plan Physical Therapy Treatment Plan Bed Mobility Training,Transfer Training,Gait Training, Therapeutic Exercise,Balance Retraining,Discharge Planning, Hot or Cold Pack,Neuromuscular Re-ed Other Recommendations and Next Treatment Review bridges and greater Focus participation with repositioning in bed. Transition to sitting EOB and attempt standing with FWW. Precautions Other Precautions Avoid excess shear on pressure injuries. Monitor H&H (7.4/24 today with transfusion trigger of <7.0) Recommendations To Nursing Amount of Assist Needed Mechanical Lift Discharge Recommendations PT Discharge Recommendations SNF Rehab Transportation Needs at Discharge Wheelchair/Cabulance
--- NOTE | 2022-07-04 14:37 | CM.DPNOTE ---
DCP/continued: Reviewed chart. Received return phone call from September at [facility], she reports that they do not accept [employer] plan. Demographic sheets updated and confirm primary payor is [employer]V. Met with patient to discuss d/c options. Patient reports that she thought she cancelled [employer]? Notified patient that [facility] billing checked and she continues to have [employer] ADV. Patient made aware that [facility] is not an option because they are not contracted with [employer]. Patient agreeable for CM team to contact agencies that are contracted. Therefore, asked [employer] REPAIRER to send to [facility], [facility], and Lu[facility] was faxed earlier and Phyllis does not think she can accommodate. P: SNF pending. SYLVIA
[2022-07-04] MEDS: ACETAMINOPHEN 325 MG TABLET 650 MG PO (16:01)
[2022-07-04] MEDS: carvediloL 12.5 MG TABLET 25 MG PO (21:11)
[2022-07-05] VITALS (13 sets, daily range): BP systolic 120–154; BP diastolic 41–63; PULSE 71–83; RESP 16–22; TEMP 36.1–36.9; O2SAT 93–99
--- NOTE | 2022-07-05 00:21 | PC.NURSE ---
Patient moved to , report given to [employer]. A/Ox3, has mild anxiety, pain managed with oxycodone. Reji drsg intact to left buttock, barrier cream applied to other excoriated areas, and offloading. VSS, sats 95% on 2L NC.
[2022-07-05] MEDS: VANCOMYCIN 1,500 MG/300 ML PIGGYBACK 200 MG IV (01:55)
[2022-07-05] MEDS: OXYCODONE IR 10 MG TABLET PO (01:57)
[2022-07-05] MEDS: ACETAMINOPHEN 325 MG TABLET 650 MG PO (01:58)
[2022-07-05] MEDS: SODIUM CHLORIDE 0.9% FLUSH 10 ML IV ×3 (01:59→21:12)
[2022-07-05 04:59] LABS: Add Manual Diff / Slide Review NO; Basophils Absolute Auto 100 /uL (0-100); Basophils Percent Auto 1.1 % (0-2); Eosinophils Absolute Auto 200 /uL (0-450); Eosinophils Percent Auto 3.6 % (2-4); Hematocrit 23.6 % (36-46); Hemoglobin 7.3 g/dL (12.0-16.0); Lymphocytes Absolute Auto 1200 /uL (1100-4500); Lymphocytes Percent Auto 18.7 % (25-40); Mean Corpuscular HGB Conc 31.1 % (30-36); Mean Corpuscular Hemoglobin 24.1 PG (26-34); Mean Corpuscular Volume 77.6 fL (80-100); Monocytes Absolute Auto 500 /uL (0-900); Monocytes Percent Auto 7.7 % (3-14); Neutrophils Absolute Auto 4400 /uL (1500-7000); Neutrophils Percent Auto 68.9 % (50-75); Platelet Count 302 X10^3/uL (150-400); Red Blood Cell Count 3.05 X10^6/uL (4.0-5.2); Red Cell Distribution Width 18.1 % (11.6-14.8); White Blood Cell Count 6.5 X10^3/uL (4.5-11.0)
[2022-07-05 05:18] LABS: BUN Creatinine Ratio 16.4 (6-22); Blood Urea Nitrogen 12 mg/dL (7-17); Calcium 7.9 mg/dL (8.4-10.2); Carbon Dioxide 26 mmol/L (22-32); Chloride 107 mmol/L (98-107); Estimated Glomerular Filt Rate > 60 mL/min (>60); Glucose 85 mg/dL (80-110); HEMOLYSIS < 15 (0-50); Potassium 4.7 mmol/L (3.4-5.1); Sodium 135 mmol/L (137-145)
--- NOTE | 2022-07-05 07:43 | PM.PN.1 ---
Subjective Subjective Interval history: Patient sleeping and not awakened. Hgb 7.3 today and given 1 units of PRBC. Wound cultures growing MSSA and pseudomonas sensitive to cipro. Exam Vital Signs (past 8 hours): - 07/05/22 00:00 07/05/22 00:45 Temperature 98.1 F 97.5 F L Pulse Rate 73 71 Respiratory Rate 22 18 Blood Pressure 128/57 L 146/41 H Pulse Oximetry 93 99 Oxygen Flow Rate 2 6 Fraction of Inspired Oxygen 28 SaO2/FiO2 Ratio 328 Oxygen Delivery Method Nasal Cannula Oxygen Flow Rate 6 Narrative Exam Narrative: GEN: Chronically ill-appearing middle-aged female, Alert and oriented x 3 HEENT:NC, Face symmetric CHEST: Respiratory excursions symmetric, coarsened diminished but CTAB CV: RRR, no M/R/G ABD: Soft, obese, NT/ND, BT present in all 4 quadrants, body habitus limits exam EXTR: warm, well perfused, no C/C, chronic venous stasis changes with scaling and ulceration to the lower extremities bilaterally SKIN: warm and dry, candidal rash noted in her inferior pannus folds NEURO: nonfocal Objective Labs 07/05/22 04:43 07/05/22 04:43 Labs: Laboratory Results - last 24 hr 07/05/22 07/05/22 07/05/22 04:43 04:43 04:43 WBC 6.5 RBC 3.05 L Hgb 7.3 L Hct 23.6 L MCV 77.6 L MCH 24.1 L MCHC 31.1 RDW 18.1 H Plt Count 302 Neut % (Auto) 68.9 Lymph % (Auto) 18.7 L Wilkin % (Auto) 7.7 Eos % (Auto) 3.6 Baso % (Auto) 1.1 Neut # (Auto) 4400 Lymph # (Auto) 1200 Wilkin # (Auto) 500 Eos # (Auto) 200 Baso # (Auto) 100 Sodium 135 L Potassium 4.7 Chloride 107 Carbon Dioxide 26 BUN 12 Creatinine 0.73 Estimated GFR > 60 BUN/Creatinine Ratio 16.4 Glucose 85 Calcium 7.9 L Magnesium 2.0 [facility] Medical History (Updated 07/04/22 @ 09:57 by Lindsey Onofre MD) Bilateral lower extremity edema Chronic respiratory failure COPD (chronic obstructive pulmonary disease) Diabetes History of cellulitis History of congestive heart failure Hypertension Hypoxia Meningioma Morbidly obese Personal history of osteomyelitis Surgical History (Updated 07/02/22 @ 22:35 by SHAUNA Decker-) History of craniotomy Status post appendectomy Status post cholecystectomy Family History Daughter No problems noted. Son No problems noted. Mother Diabetes mellitus Congestive heart failure Father Diabetes mellitus Social History household members: children Smoking Status: Never smoker Assessment & Plan Assessment & Plan narrative: 1. Sepsis, secondary to urinary tract infection/buttock cellulitis, as evidenced by hypotension, acute metabolic encephalopathy, and leukocytosis Patient was initially admitted to acute care but rapidly developed severe hypotension and required transfer to ICU. She was placed on pressor support but this is now weaned off. Antibiotics were broadened to cefepime and vancomycin. Overall, sepsis physiology has improved. Blood pressures have normalized with above interventions. Imaging studies were challenging as patient had previously extensive hardware placement secondary to spine surgery which affected the quality of imaging. Urine culture growing E.coli which was treated and wound culture growing staph aureus and pseudomonas sensitive to cipro. Started cipro IV and will transition to po cipro on discharge. 2. Multiple buttock ulcers with associated cellulitis Local wound care interventions have been initiated. Covered with cipro as above. She will undoubtedly require placement in a senior care facility for rehab prior to discharging home. 3. MICHAEL Creatinine was 1.38 on admission. Has improved with treatment 2 and MICHAEL has now resolved. 4. Ground level falls, recurrent, secondary to generalized weakness PT/OT eval recommending SNF. 5. Essential hypertension Antihypertensive medications have been held in the setting of hypotension requiring pressors 6. HFpEF and pulmonary HTN, unknown if systolic or diastolic Echo 07/04 with EF 60-65% and RVSP of 52. On home coreg. 7. Diabetes mellitus type 2, insulin dependent Blood sugars have been well controlled. Continue controlled carb diet. Continue sliding scale insulin. 8. History of left temporal craniotomy secondary to meningioma, on seizure prophylaxis Keppra No evidence for seizure. Continue Keppra. 9. Chronic hypoxic respiratory failure Patient was reportedly on 2 L of oxygen via nasal cannula at baseline. On 2 L here as well. 10. Class 3 obesity BMI is 45.9. This does put her at higher risk for morbidity and mortality. 11. Recurrent UTIs Urine culture with >100k E. coli sensitive to cephalosporins. Finished 3 day course of IV abx. 12. History of T6 osteomyelitis No present complaints of back pain. Would have low threshold for additional imaging if she begins complaining of localized back pain given the significant hardware in her spine. 13. Microcytic anemia She does have a low MCV. No clear active bleeding. Iron studies suggest anemia of chronic disease. Given 1 unit of PRBC on 07/05 for Hgb 7.3. Code status Full Prophylaxis Lovenox Disposition SNF once accepted and pending insurance auth. Time Spent With Patient Critical Care time: I spent a total of [] minutes of critical care time on this patient's care today; this time is exclusive of procedural time.
[2022-07-05] MEDS: GABAPENTIN 300 MG CAPSULE PO ×3 (08:23→21:01)
[2022-07-05] MEDS: POTASSIUM CHLORIDE 10 MEQ TAB PO ×2 (08:23→21:01)
[2022-07-05] MEDS: carvediloL 12.5 MG TABLET 25 MG PO ×2 (08:23→21:02)
[2022-07-05] MEDS: ENOXAPARIN 40 MG/0.4 ML SYRINGE SUBCUT ×2 (08:24→21:03)
[2022-07-05] MEDS: FERROUS SULFATE 325 MG TABLET PO (08:24)
[2022-07-05] MEDS: levETIRAcetam 250 MG TABLET 750 MG PO ×2 (08:24→21:00)
--- NOTE | 2022-07-05 08:45 | PT.IPTN ---
Current Diagnoses Sepsis, unspecified organism (07/02/22) Anemia, unspecified (07/02/22) Acute and chronic respiratory failure with hypoxia (07/02/22) Cellulitis, unspecified (07/02/22) Acute kidney failure, unspecified (07/02/22) Urinary tract infection, site not specified (07/02/22) Physical Therapy Treatment Note M2 PT-IP Current Condition Start: 07/04/22 08:12 Freq: NEEDED Status: Active Protocol: Document 07/04/22 13:53 AW (Rec: 07/04/22 14:44 AW [id number]) Physical Therapy Current Condition Current Condition Evaluation Date 07/04/22 Treatment Diagnosis UTI, sepsis, multiple pressure injuries, impaired mobility and gait Onset Date 07/02/22 M3 PT-IP Subjective Start: 07/04/22 08:12 Freq: NEEDED Status: Active Protocol: Document 07/05/22 10:18 TS (Rec: 07/05/22 11:05 TS [id number]) Subjective Physical Therapy Visit Type Type Treatment Note Visit Start Time 08:45 Visit Stop Time 09:25 Total Visit Minutes 40 Notes Spo2: 2L 95% supine, Low 80's with bed mobility on 2L increased to 4L low 90's. Pt requires MaxA x2. Number of CIGAR HEAD PEGGER Visits 1 Physical Therapy Visit Comments Patient Comments Pt agreeable to PT session, reports feeling tired this morning. Patient Goals Pt is hopeful to discharge to SNF for continued rehab. I was doing so good when I had PT before. Therapy Pain Assessment Pain When Pain Assessed During Mobility Pain Present Pain Present Pain Reported Location Generalized Pain Management Techniques Distraction,Modification of Treatment,Re-positioning M4 PT-IP Mobility and Gait Start: 07/04/22 08:12 Freq: NEEDED Status: Active Protocol: Document 07/05/22 10:18 TS (Rec: 07/05/22 11:05 TS [id number]) PT-Bed Mobility Assessment Rolling Type of Rolling Roll to Left Level of Assist Maximal Assistance Supine to Sit Supine to Sit Maximum Assistance,2 Person Assistance,Head of Bed Elevated,Bedrails Sit to Supine Sit to Supine Maximum Assistance,2 Person Assistance Scooting Scooting to Edge of Bed Maximum Assistance Scooting Up and Down in Bed Maximum Assistance PT-Transfer Assessment Comments Mobility Comments Pt found resting in bed , reports feeling tired but agreeable to PT session. She c /o of pain with mobility due to multiple pressure injuries on legs and buttocks. Pt on 2L of O2 at 95% before mobility. Pt required MaxA x2 for logroll to left HOB 45D, with cues for handrail assist with LUE. She performed supine to sit, very labored, MaxA x2 with trapeze bar for UE support to come into sitting. O2 at 2L decreased to low 80's with bed mobility, increased O2 to 4L (low 90's) and provided her with cues for pursed lip throughout session. She required MaxA x2 for scooting to EOB with handrail assist BUE. Once seated she demonstrated a retrolean requring ModA but when provided cues for core act maintained sitting balance CGA 2x30 secs. She performed sit to supine MaxA x2 with use of BUE on trapeze bar. In supine she required MAxA x2 to scoot to HOB. Pt left in bed with call light nearby and all needs met. Gait Assessment Comments Gait Comments Unable at this time. PT-Balance Assessment Sitting Balance and Reactions Static Sitting Balance Ability Good Dynamic Sitting Balance Ability Fair Comments Other Balance Tests/Deviations/Treatment Pt was ModA intially for : sitting balance on EOB with BUE handrail support, progressed to CGA with cues for core activation. M5 PT-IP Objective Assessments Start: 07/04/22 08:12 Freq: NEEDED Status: Active Protocol: Document 07/04/22 13:53 AW (Rec: 07/04/22 14:44 AW [id number]) Orientation Orientation/Cognition Level of Alertness Alert Orientation Name,Month,Place,Situation Language Function Ability No Deficits Noted Safety Awareness Understands Safety Issues Comments Pt presents with heightened anxiety. She seems to associate her wounds with sliding off her lift recliner. Gross Range of Motion Lower Extremity ROM Assessment Bilaterally Impaired Impairments Lacking 5-10 degrees knee extension LLE. Lacking TKE RLE . Strength Lower Extremity Strength Assessment Bilaterally Impaired Hip 3+/5 Knee 4-/5 extension and flexion Ankle 4/5 DF; 3/5 PF Sensation Assessment Sensation Gross Sensation Right LE Impaired,Left LE Impaired Comments Sensation Comments Dull light touch sensation BLE in gaiter distribution. Other Assessments Other Other Assessments Hyperkeratosis and edema present BLE. M6 PT-IP Treatment Start: 07/04/22 08:12 Freq: NEEDED Status: Active Protocol: Document 07/05/22 10:18 TS (Rec: 07/05/22 11:05 TS [id number]) Physical Therapy Treatment Education Education Provided Safety Other Treatments Other Treatment Performed Heel slides x5 ea LE, Ankle pumps x5 ea LE, Quad sets x5 ea LE. M7 PT-IP Assessment and Plan Start: 07/04/22 08:12 Freq: NEEDED Status: Active Protocol: Document 07/05/22 10:18 TS (Rec: 07/05/22 11:05 TS [id number]) PT Summary Assessment and Plan Potential Rehabilitation Potential Good Status of Condition at Evaluation Evolving Summary Impairments Pain,ROM,Strength,Balance, Sensation,Bed Mobility, Transfers,Gait,Activity Tolerance Assessment Summary Rocío remains MaxA x2 for all bed mobility. She did not attempt to stand this session due to O2 levels decreasing significantly and is afraid of using step to stand up with due to fear of falling. PT continues to recommend SNF to improve bed mobility, transfers, strength and care of wounds. Goals Bed Mobility Goal Minimal Assistance Transfer Goal Contact Guard Assistance,Front Wheeled Walker Gait Goal Contact Guard Assistance,Front Wheel Walker Gait Distance 25 Other Goals - improve transfers and gait to SBA with 4WW Days to Meet Goals 10 Frequency of Treatment Frequency Of Treatment Once a Day Treatment Plan Physical Therapy Treatment Plan Bed Mobility Training,Transfer Training,Gait Training, Therapeutic Exercise,Balance Retraining,Discharge Planning, Hot or Cold Pack,Neuromuscular Re-ed Other Recommendations and Next Treatment Review bridges and greater Focus participation with repositioning in bed. Transition to sitting EOB and attempt standing with FWW. Precautions Other Precautions Avoid excess shear on pressure injuries. Monitor H&H (7.4/24 today with transfusion trigger of <7.0) Recommendations To Nursing Amount of Assist Needed 2 Person Assist,3 or More Person Assist Discharge Recommendations PT Discharge Recommendations SNF Rehab Transportation Needs at Discharge Wheelchair/Cabulance
[2022-07-05] MEDS: CIPROFLOXACIN 400 MG/200 ML PIGGYBACK 200 MG IV ×2 (08:46→21:00)
--- NOTE | 2022-07-05 12:48 | OT.IPNOTE ---
To check on pt tomorrow as getting blood transfused at this time.
--- NOTE | 2022-07-05 13:47 | CM.DPC ---
Addendum entered by LISSETT Stokes 07/05/22 14:41: ADD: SW met bedside with pt and explained role and updated pt on acceptance at [facility] and initiation of auth process. Pt confirms she was hopeful for [facility] but aware her insurance is not contracted at that [facility], [facility], [facility] cannot accept and [facility] only accepting facility and pt acknowledges understanding and aware only need for short stay rehab so she will update her family and agreeable to [facility] at d/c before safe return home. BF Original Note: DCP SNF Planning Per MD, pt received a unit of blood today and switched to Cipro IV-Abx and has a PICC placed already and likely could be ready for d/c to SNF by tomorrow. SW called following [employer] contracted SNFs: [facility]- no beds [facility]- no beds for a few days [facility]- left msg. [facility]- can accept and will initiate auth today STANTON Nguyen faxed updated clinicals to [facility] to use towards requesting [employer] SNF auth. PASRR completed. No updated COVID swab needed at discharge. Plan: SW to follow for plan of [facility] SNF likely tomorrow Wed if [employer] auth secured. No updated COVID swab needed. LISSETT Stokes
[2022-07-06] MEDS: ONDANSETRON 4 MG/2 ML INJ IV (03:31)
[2022-07-06 04:51] VITALS: BP 142/52; PULSE 82; RESP 19; TEMP 36.6; O2SAT 93
[2022-07-06 06:32] LABS: Add Manual Diff / Slide Review NO; Basophils Absolute Auto 100 /uL (0-100); Basophils Percent Auto 0.9 % (0-2); Eosinophils Absolute Auto 200 /uL (0-450); Eosinophils Percent Auto 3.6 % (2-4); Hemoglobin 8.4 g/dL (12.0-16.0); Lymphocytes Absolute Auto 1000 /uL (1100-4500); Lymphocytes Percent Auto 15.7 % (25-40); Mean Corpuscular HGB Conc 31.1 % (30-36); Mean Corpuscular Hemoglobin 24.2 PG (26-34); Mean Corpuscular Volume 77.7 fL (80-100); Monocytes Absolute Auto 400 /uL (0-900); Monocytes Percent Auto 6.5 % (3-14); Neutrophils Absolute Auto 4700 /uL (1500-7000); Neutrophils Percent Auto 73.3 % (50-75); Platelet Count 388 X10^3/uL (150-400); Red Blood Cell Count 3.46 X10^6/uL (4.0-5.2); White Blood Cell Count 6.5 X10^3/uL (4.5-11.0)
[2022-07-06 06:42] LABS: Hematocrit 26.9 % (36-46)
[2022-07-06 06:52] LABS: Magnesium 1.7 mg/dL (1.6-2.3)
[2022-07-06 06:58] LABS: BUN Creatinine Ratio 10.1 (6-22); Blood Urea Nitrogen 7 mg/dL (7-17); Calcium 8.3 mg/dL (8.4-10.2); Carbon Dioxide 29 mmol/L (22-32); Chloride 104 mmol/L (98-107); Estimated Glomerular Filt Rate > 60 mL/min (>60); Glucose 101 mg/dL (80-110); HEMOLYSIS < 15 (0-50); Potassium 4.3 mmol/L (3.4-5.1); Sodium 136 mmol/L (137-145)
[2022-07-06] MEDS: CIPROFLOXACIN 400 MG/200 ML PIGGYBACK 200 MG IV (07:47)
[2022-07-06] MEDS: SODIUM CHLORIDE 0.9% FLUSH 10 ML IV (07:48)
[2022-07-06 07:59] VITALS: BP 178/71; PULSE 93; RESP 18; TEMP 37.3; O2SAT 92
[2022-07-06 08:00] VITALS: BP 178/71; PULSE 93; RESP 18; TEMP 37.3; O2SAT 92
[2022-07-06] MEDS: FERROUS SULFATE 325 MG TABLET PO (08:51)
[2022-07-06] MEDS: GABAPENTIN 300 MG CAPSULE PO ×2 (08:51→14:52)
[2022-07-06 08:52] VITALS: BP 178/71
[2022-07-06] MEDS: ENOXAPARIN 40 MG/0.4 ML SYRINGE SUBCUT (08:52)
[2022-07-06] MEDS: POTASSIUM CHLORIDE 10 MEQ TAB PO (08:52)
[2022-07-06] MEDS: levETIRAcetam 250 MG TABLET 750 MG PO (08:52)
[2022-07-06] MEDS: carvediloL 12.5 MG TABLET 25 MG PO (08:52)
--- NOTE | 2022-07-06 08:55 | P.DS_ITS ---
History of Present Illness History of Present Illness Date Patient Seen: 07/06/22 Time Patient Seen: 21:53 Chief complaint: fall w/ bed sores. Narrative: Rocío Enriquez ?is a 61-year-old female with PMH significant for chronic respiratory failure w/ hypoxia and O2 dependence (2L at baseline), COPD, HTN, CHF, iron-deficiency anemia, morbid obesity (BMI 45.9), recurrent UTIs, T6 osteomyelitis, chronic bilateral lower extremity edema, chronic lower extremity cellulitis, DM, and meningioma with left temporal lobe craniotomy.? Patient lives alone family has attempted to help manage her care at home but now exceeds their capability as she requires a significant amount of assistance, failure to thrive. She was brought into the ED following increased weakness over the past 2-3 days EMS had been called to the home multiple times due to frequent falls from increased weakness, suffered episodes of diarrhea secondary to antibiotics (x2 weeks keflex, recently completed) for the LE cellulitis. She presented to the ED with hypertensive urgency BP 130/100, slightly tachypneic RR 20. She was found to have on further exam to moderate erythemic skin with multiple open wounds to the buttocks area with oozing drainage. ?Patient notes chills & she had a cold that resolved approximately 1 week ago. Upon admit to the floor skin evaluation and repositioning patient had significant pain with any movement of her trunk and even greater with her extremities. On admit patient denies chest pain, headache, changes in vision, difficulty swallowing, speech impairment, numbness, tingling, head injury, LOC, fever, body aches, cough, recent exposure to illness, abdominal pain, vomiting, urinary incontinence/retention, dysuria, frequency, urgency, hematuria, constipation, incontinence, melena, recent changes to medication. On admit temp 97.6?, BP 111/50, this is decreased from 130/100, previous blood pressures noted from 2020 systolics 150-178. Heart rate 71, RR 20, O2 saturation 97% on 2 L nasal cannula. WBC 15.5 neutrophils 13,900, baso 200, lac fox 1.7, procalcitonin 11.6, lipase 14, CK 953, CK-2 7.78, RI 0.8%, HGB 9.2/HCT 30.1, MCV 77.5, MCH 23.7-these are baseline. BUN 33, creatinine 1.38, GFR 44, glucose 123. 2021: BUN 29, creatinine 0.86, GFR> 60. BNP 758. I personally reviewed: EKG NSR at a rate of 60 with sinus arrhythmia. Head CT is negative for any acute process, prior left temporal lobe craniotomy. Chest x- ray limited, without acute process. Patient is admitted to acute care with sepsis without shock, multiple GLF, cellulitis, MICHAEL, weakness, with failure to thrive. Discharge Providers Provider Date of admission: 07/02/22 21:20 Discharge Date: 07/06/22 Primary care physician: Nato Lin MD Consults: 07/02/22 21:44 Consult to Dietitian, Adult Routine Comment: Reason For Exam: BMI 50 07/02/22 21:45 Consult to Occupational Therapy Evaluate & Treat Comment: weakness, freq falls Physician Instructions: Evaluate and treat Consult to Physical Therapy Evaluate & Treat Comment: weakness, freq falls Physician Instructions: Evaluate and Treat 07/02/22 21:50 Consult to CHARGE ACCOUNT IDENTIFICATION CLERK - Tank Charger Routine Comment: unable to manage at home safely CHARGE ACCOUNT IDENTIFICATION CLERK Consult needed for:: [facility] Need Social Determinants issue 07/03/22 03:06 Consult to Tank Charger Routine Comment: 07/03/22 03:23 Consult to Tele-safety intern Routine Comment: Consulting Provider: [facility] [employer] Reason for consultation: [facility] services Has provider been notified: Yes 07/03/22 04:09 Consult to Dietitian, Adult Routine Comment: Reason For Exam: BMI 45.9 07/03/22 18:54 Consult to Tele-safety intern Routine Comment: Consulting Provider: El[employer]ar [employer] Reason for consultation: [facility] services 07/04/22 14:24 Consult to Physical Therapy Evaluate & Treat Comment: Physician Instructions: Evaluate and Treat 07/04/22 14:25 Consult to Occupational Therapy Evaluate & Treat Comment: Physician Instructions: Evaluate and treat Discharge provider: Roel Dhaliwal DO Summary Hospital Course Discharge Diagnosis: 1. Sepsis, secondary to urinary tract infection/buttock cellulitis, as evidenced by hypotension, acute metabolic encephalopathy, and leukocytosis, sepsis resolved Patient was initially admitted to acute care but rapidly developed severe hypotension and required transfer to ICU.? She was placed on pressor support but this is now weaned off. Antibiotics were broadened to cefepime and vancomycin.? Overall, sepsis physiology has improved.? Blood pressures have normalized with above interventions.? Imaging studies were challenging as patient had previously extensive hardware placement secondary to spine surgery which affected the quality of imaging.? Urine culture growing E.coli which was treated and wound culture growing staph aureus and pseudomonas sensitive to cipro. Started cipro IV and will transition to po cipro on discharge to finish 07/09. 2. Multiple buttock ulcers with associated cellulitis Local wound care interventions have been initiated.? Covered with cipro as above.? Turning schedules to provide offloading. 3. MICHAEL, resolved Creatinine was 1.38 on admission.? Has improved with treatment 2 and MICHAEL has now resolved. 4. Ground level falls, recurrent, secondary to generalized weakness PT/OT eval recommending SNF. 5. Essential hypertension Antihypertensive medications have been held in the setting of hypotension requiring pressors 6. HFpEF and pulmonary HTN, unknown if systolic or diastolic Echo 07/04 with EF 60-65% and RVSP of 52. On home coreg. 7. Diabetes mellitus type 2, insulin dependent Blood sugars have been well controlled.? Continue controlled carb diet.? Continue sliding scale insulin. 8. History of left temporal craniotomy secondary to meningioma, on seizure prophylaxis Keppra No evidence for seizure.? Continue Keppra. 9. Chronic hypoxic respiratory failure Patient was reportedly on 2 L of oxygen via nasal cannula at baseline.? On 2 L here as well. 10. Class 3 obesity BMI is 45.9.? This does put her at higher risk for morbidity and mortality. 11. Recurrent UTIs Urine culture with >100k E. coli sensitive to cephalosporins. Finished 3 day course of IV abx. 12. History of T6 osteomyelitis No present complaints of back pain.? Would have low threshold for additional imaging if she begins complaining of localized back pain given the significant hardware in her spine. 13. Microcytic anemia She does have a low MCV.? No clear active bleeding.? Iron studies suggest anemia of chronic disease. Given 1 unit of PRBC on 07/05 for Hgb 7.3. Hospital Course: See problem list above. Time Spent with Patient Time spent: Greater than 30 minutes Exam Vital Signs (past 8 hours): - 07/06/22 04:51 07/06/22 07:59 07/06/22 08:00 Temperature 97.8 F 99.1 F 99.1 F Pulse Rate 82 93 H 93 H Respiratory Rate 19 18 18 Blood Pressure 142/52 H 178/71 H 178/71 H Pulse Oximetry 93 92 92 Oxygen Flow Rate 3 3 07/06/22 08:52 Temperature Pulse Rate Respiratory Rate Blood Pressure 178/71 H Pulse Oximetry Oxygen Flow Rate Fraction of Inspired Oxygen 28 SaO2/FiO2 Ratio 328 Oxygen Delivery Method Nasal Cannula Oxygen Flow Rate 3 Narrative Exam Narrative: GEN: Chronically ill-appearing middle-aged female, Alert and oriented x 3 HEENT:NC, Face symmetric CHEST: Respiratory excursions symmetric, coarsened diminished but CTAB CV: RRR, no M/R/G ABD: Soft, obese, NT/ND, BT present in all 4 quadrants, body habitus limits exam EXTR: warm, well perfused, no C/C, chronic venous stasis changes with scaling and ulceration to the lower extremities bilaterally SKIN: warm and dry, candidal rash noted in her inferior pannus folds NEURO: nonfocal Objective Labs 07/06/22 05:39 07/06/22 05:39 Labs: Laboratory Results - last 24 hr 07/05/22 07/06/22 07/06/22 08:15 05:39 05:39 WBC 6.5 RBC 3.46 L Hgb 8.4 L Hct 26.9 L MCV 77.7 L MCH 24.2 L MCHC 31.1 RDW 18.0 H Plt Count 388 Neut % (Auto) 73.3 Lymph % (Auto) 15.7 L Victoria % (Auto) 6.5 Eos % (Auto) 3.6 Baso % (Auto) 0.9 Neut # (Auto) 4700 Lymph # (Auto) 1000 L Victoria # (Auto) 400 Eos # (Auto) 200 Baso # (Auto) 100 Sodium Potassium Chloride Carbon Dioxide BUN Creatinine Estimated GFR BUN/Creatinine Ratio Glucose Calcium Magnesium 1.7 Blood Type O Negative Antibody Screen Negative Crossmatch See Detail 07/06/22 05:39 WBC RBC Hgb Hct MCV MCH MCHC RDW Plt Count Neut % (Auto) Lymph % (Auto) Victoria % (Auto) Eos % (Auto) Baso % (Auto) Neut # (Auto) Lymph # (Auto) Victoria # (Auto) Eos # (Auto) Baso # (Auto) Sodium 136 L Potassium 4.3 Chloride 104 Carbon Dioxide 29 BUN 7 Creatinine 0.69 Estimated GFR > 60 BUN/Creatinine Ratio 10.1 Glucose 101 Calcium 8.3 L Magnesium Blood Type Antibody Screen Crossmatch [facility] Medical History (Updated 07/04/22 @ 09:57 by Lindsey Onofre MD) Bilateral lower extremity edema Chronic respiratory failure COPD (chronic obstructive pulmonary disease) Diabetes History of cellulitis History of congestive heart failure Hypertension Hypoxia Meningioma Morbidly obese Personal history of osteomyelitis Surgical History (Updated 07/02/22 @ 22:35 by SHAKIRA Decker) History of craniotomy Status post appendectomy Status post cholecystectomy Family History Daughter No problems noted. Son No problems noted. Mother Diabetes mellitus Congestive heart failure Father Diabetes mellitus Social History household members: children Smoking Status: Never smoker Discharge Plan Discharge Plan Patient Disposition: SNF Discharge orders & Medications Prescriptions: New ciprofloxacin HCl 500 mg tablet 500 mg PO 0700,2100 3 Days Qty: 6 0RF nystatin [Nystop] 100,000 unit/gram Powder 1 applic topical TID PRN (Reason: Rash) Qty: 15 0RF Continued carvedilol 25 mg Tablet 25 mg PO BID potassium chloride 10 mEq tablet,ER particles/crystals 10 meq PO BID oxycodone 5 mg Tablet 2.5 - 5 mg PO Q6H PRN (Reason: Pain (Scale Score 7-10)) Qty: 30 0RF insulin lispro 100 unit/mL solution 10 units subcut 3-4XD PRN (Reason: Hyperglycemia) gabapentin 300 mg capsule 300 mg PO TID losartan 100 mg tablet 100 mg PO QAM amlodipine 10 mg tablet 10 mg PO QAM levetiracetam 750 mg Tablet 750 mg PO BID ferrous sulfate 324 mg (65 mg iron) Tablet,Delayed Release (Dr/Ec) 324 mg PO QAM furosemide 20 mg Tablet 20 mg PO QAM PRN (Reason: Edema) acetaminophen 325 mg Capsule 650 mg PO Q4H PRN (Reason: Pain, Moderate) (DME) oxygen-air delivery systems Device MISCELLANEOUS Rx Instructions: 2L [place] oxygen Follow up/Referrals: Nato Lin MD [Primary Care Provider] - 2 Weeks Discharge Health Status Multidrug resistant organism: No MDRO Diet/Activity/Treatments Diet: Carb-consistent/Diabetic Liquid consistency: Normal/Thin Food texture: Regular Catheter: 2-way [facility] Rehab type: Physical therapy and Occupational therapy Visit Report/Discharge Packet Stand Alone Forms: Patient Portal/API Discharge Data Primary Care Provider: Nato Lin
[2022-07-06 09:08] VITALS: O2SAT 93
[2022-07-06] MEDS: OXYCODONE IR 10 MG TABLET PO ×2 (10:21→15:37)
[2022-07-06] MEDS: polyethylene glycoL 3350 17 GM POWD.PACK PO (10:21)
[2022-07-06] MEDS: SENNOSIDES 8.6 MG TABLET 17.2 MG PO (10:37)
--- NOTE | 2022-07-06 11:26 | PT.IPTN ---
Current Diagnoses Sepsis, unspecified organism (07/02/22) Anemia, unspecified (07/02/22) Acute and chronic respiratory failure with hypoxia (07/02/22) Cellulitis, unspecified (07/02/22) Acute kidney failure, unspecified (07/02/22) Urinary tract infection, site not specified (07/02/22) Physical Therapy Treatment Note M2 PT-IP Current Condition Start: 07/04/22 08:12 Freq: NEEDED Status: Active Protocol: Document 07/04/22 13:53 AW (Rec: 07/04/22 14:44 AW [id number]) Physical Therapy Current Condition Current Condition Evaluation Date 07/04/22 Treatment Diagnosis UTI, sepsis, multiple pressure injuries, impaired mobility and gait Onset Date 07/02/22 M3 PT-IP Subjective Start: 07/04/22 08:12 Freq: NEEDED Status: Active Protocol: Document 07/06/22 13:04 TS (Rec: 07/06/22 13:42 TS [id number]) Subjective Physical Therapy Visit Type Type Treatment Note Visit Start Time 11:26 Visit Stop Time 12:18 Total Visit Minutes 52 Notes Vitals: BP 143/43 EOB, BP 123/ 100 on commode. 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 Pt nervous to move and reports fear of falling, agreeable to PT session. Patient Goals Pt is hopeful to discharge to SNF for continued rehab. I was doing so good when I had PT before. Therapy Pain Assessment Pain When Pain Assessed During Mobility Pain Present Pain Present Pain Reported Location Generalized Pain Management Techniques Distraction,Modification of Treatment,Re-positioning M4 PT-IP Mobility and Gait Start: 07/04/22 08:12 Freq: NEEDED Status: Active Protocol: Document 07/06/22 13:04 TS (Rec: 07/06/22 13:42 TS [id number]) PT-Bed Mobility Assessment Rolling Type of Rolling Roll to Right,Roll to Left Level of Assist Minimal Assistance,Moderate Assistance Supine to Sit Supine to Sit Maximum Assistance,2 Person Assistance,Head of Bed Elevated,Bedrails Sit to Supine Sit to Supine Maximum Assistance,2 Person Assistance Scooting Scooting to Edge of Bed Maximum Assistance Scooting Up and Down in Bed Maximum Assistance PT-Transfer Assessment Sit to and From Stand Sit to and from Stand Minimal Assistance,2 Person Assistance Equipment Transfer Assistive Device Gait Belt,Front Wheeled Walker Transfers Transfer Destination Bedside Commode Transfer Technique Stand Step Pivot Transfer Ability Level of Assist Minimal Assistance Comments Mobility Comments Pt found resting in bed, about to get up with OT, agreeable to PT session. Pt performed supine to sit MaxA x2 for trunk and LE's off EOB and use of trapeze bar. Pt reports fear of falling off bed, provided reassurance she will not fall. She required MaxA x2 for scooting to EOB with feet flat on floor and cues provided for UE on handrails. Once seated on EOB she maintained sitting balance progressing from use of BUE support CGA with handrails to no handrails SBA. She performed sit to stand x1 with MinAx2 for standing, provided cues for knees straight and upright posture. She stand step pivot transferred to bedside commode Eddi with cues for legs back against commode and UE's on arms rest for slow eccentric control. She then had a BM and stood Eddi x1 for pericare from [employer]. She stnad step pivot transferred back to bed Eddi x2 with shuffle gait and good management of FWW. She performed sit to supine MaxA x2 for trunk and LE's into bed , provided cues for pushing heels into bed to scoot to HOB . She rolled left and right for placement of waffle cushion under backside Min- ModAx2. She was left back in bed with call light nearby, lunch on tray a smile and increased confidence. PT-Balance Assessment Sitting Balance and Reactions Static Sitting Balance Ability Good Dynamic Sitting Balance Ability Fair Standing Balance and Reactions Static Standing Balance Ability Fair Dynamic Standing Balance Ability Poor Device Used FWW Comments Other Balance Tests/Deviations/Treatment Pt maintained midline with : with BUE support with handrails and CGA, progressed to SBA with no BUE suppport. In standing she required cues for straighten knees and upright posture, tends to lean on FWW. M5 PT-IP Objective Assessments Start: 07/04/22 08:12 Freq: NEEDED Status: Active Protocol: Document 07/04/22 13:53 AW (Rec: 07/04/22 14:44 AW [id number]) Orientation Orientation/Cognition Level of Alertness Alert Orientation Name,Month,Place,Situation Language Function Ability No Deficits Noted Safety Awareness Understands Safety Issues Comments Pt presents with heightened anxiety. She seems to associate her wounds with sliding off her lift recliner. Gross Range of Motion Lower Extremity ROM Assessment Bilaterally Impaired Impairments Lacking 5-10 degrees knee extension LLE. Lacking TKE RLE . Strength Lower Extremity Strength Assessment Bilaterally Impaired Hip 3+/5 Knee 4-/5 extension and flexion Ankle 4/5 DF; 3/5 PF Sensation Assessment Sensation Gross Sensation Right LE Impaired,Left LE Impaired Comments Sensation Comments Dull light touch sensation BLE in gaiter distribution. Other Assessments Other Other Assessments Hyperkeratosis and edema present BLE. M6 PT-IP Treatment Start: 07/04/22 08:12 Freq: NEEDED Status: Active Protocol: Document 07/06/22 13:04 TS (Rec: 07/06/22 13:42 TS [id number]) Physical Therapy Treatment Education Education Provided Safety Other Treatments Other Treatment Performed Heel slides x5 ea LE, Ankle pumps x5 ea LE. M7 PT-IP Assessment and Plan Start: 07/04/22 08:12 Freq: NEEDED Status: Active Protocol: Document 07/06/22 13:04 TS (Rec: 07/06/22 13:42 TS [id number]) PT Summary Assessment and Plan Potential Rehabilitation Potential Good Status of Condition at Evaluation Evolving Summary Impairments Pain,ROM,Strength,Balance, Sensation,Bed Mobility, Transfers,Gait,Activity Tolerance Assessment Summary Rocío progressed to standing this session and transferring to bedside commode MinAx2. Her bed mobility remains MaxA2 for uprighting her trunk with handrail support and her LE's off the EOB. At start of session and throughout she expressed fear of falling but by end of session she showed much more confidence in her abilities. Her bed sores are also a factor in limiting her desire to mobilize due to the pain. PT continues to recommend SNF to improve bed mobility, transfers, strength and care of wounds. Goals Bed Mobility Goal Minimal Assistance Transfer Goal Contact Guard Assistance,Front Wheeled Walker Gait Goal Contact Guard Assistance,Front Wheel Walker Gait Distance 25 Other Goals - improve transfers and gait to SBA with 4WW Days to Meet Goals 10 Frequency of Treatment Frequency Of Treatment Once a Day Treatment Plan Physical Therapy Treatment Plan Bed Mobility Training,Transfer Training,Gait Training, Therapeutic Exercise,Balance Retraining,Discharge Planning, Hot or Cold Pack,Neuromuscular Re-ed Other Recommendations and Next Treatment Continue to work on bed Focus mobility, transfers and gait with FWW if appropriate. Precautions Other Precautions Avoid excess shear on pressure injuries. Monitor H&H (7.424 today with transfusion trigger of <7.0) Recommendations To Nursing Amount of Assist Needed 2 Person Assist Discharge Recommendations PT Discharge Recommendations SNF Rehab Transportation Needs at Discharge Wheelchair/Cabulance
--- NOTE | 2022-07-06 12:20 | OT.IP.TRT ---
Current Diagnoses Sepsis, unspecified organism (07/02/22) Anemia, unspecified (07/02/22) Acute and chronic respiratory failure with hypoxia (07/02/22) Cellulitis, unspecified (07/02/22) Acute kidney failure, unspecified (07/02/22) Urinary tract infection, site not specified (07/02/22) Occupational Therapy Treatment Note M2 OT-IP Current Condition Start: 07/04/22 14:08 Freq: Status: Active Protocol: Document 07/04/22 13:54 [facility] (Rec: 07/04/22 14:34 [facility] [id number]) Occupational Therapy Current Condition Current Condition Evaluation Date 07/04/22 Treatment Diagnosis UTI, sepsis Diagnosis Onset Date 07/02/22 M3 OT- IP Subjective and Pain Start: 07/04/22 14:08 Freq: Status: Active Protocol: Document 07/06/22 11:15 [facility] (Rec: 07/06/22 13:07 [facility] [id number]) OT- Subjective Occupational Therapy Visit Type Type Treatment Note Visit Start Time 11:15 Visit Stop Time 12:20 Total Visit Minutes 65 Occupational Therapy Visit Comments Patient Comments Pt needing encouragement and agreed to try to get up to use the BSC. Patient/Caregiver Goals TO go to skilled rehab. OT Pain Assessment Pain When Pain Assessed At Rest Pain Present Pain Present Pain Reported M4 OT- IP ADL's Start: 07/04/22 14:08 Freq: Status: Active Protocol: Document 07/06/22 11:15 [facility] (Rec: 07/06/22 13:07 [facility] [id number]) OT ADL-Grooming Comments OT Grooming Comments Pt able to wash her face after set-up of wash cloth. OT ADL-Dressing General Eval Lower Body Dressing Ability Total Assistance Areas Needing Assistance Socks OT ADL-Toileting General Evaluation Toileting Ability Total Assistance Areas Needing Assistance Perform Perineal Hygiene Comments OT Toileting Comments Pt able to stand to FWW with VERO and nursing aid able to assist for wiping needs. OT ADL-Bathing Comments OT Bathing Comments Sponge bath more appropriate at this time. M6 OT- IP Functional Cognition Start: 07/04/22 14:08 Freq: Status: Active Protocol: Document 07/06/22 11:15 [facility] (Rec: 07/06/22 13:07 [facility] [id number]) Cognitive Factors Limiting Selfcare Function Cognitive Ability Level of Alertness Alert Patient Orientation Name,Place,Situation Attention Span Ability Capable of Focused Attention, Capable of Sustained Attention Ability to Follow Commands Able to Follow One Step Commands with Increased Time, Able to Follow One Step Commands with Repetition Cognitive Comments Cognitive Assessment Comments Pt needing encouragement and step by step cues to follow as pt a little nervous and fearful of falling. Pt is cooperative and motivated to get better. M7 OT- IP Mobility and Balance Start: 07/04/22 14:08 Freq: Status: Active Protocol: Document 07/06/22 11:15 [facility] (Rec: 07/06/22 13:07 [facility] [id number]) OT- Bed Mobility Assessment Supine to Sit Supine to Sit Assist Maximum Assistance,2 Person Assistance,Head of Bed Elevated Sit to Supine Sit to Supine Assist Maximum Assistance,2 Person Assistance OT-Transfer Assessment Comments Mobility Comments Pt able to move her legs more on her own but with assist. Pt able to sit at the edge of the bed with SBA . VERO X2 to stand with FWW and transfer to the BS. Pt needing heavy use of her BUE on the FWW and lots of encouragement to move. OT- Balance Assessment Sitting Balance and Reactions Static Sitting Balance Ability Good Dynamic Sitting Balance Ability Fair Standing Balance and Reactions Static Standing Balance Ability Fair Dynamic Standing Balance Ability Poor M8 OT- IP Objective Assessments Start: 07/04/22 14:08 Freq: Status: Active Protocol: Document 07/04/22 13:54 [facility] (Rec: 07/04/22 14:34 [facility] [id number]) OT Gross Range of Motion Upper Extremity Range of Motion ROM Impairments Decreased at end ROM, pt has a flexed posture. OT Strength Upper Extremity Strength Assessment Within Functional Limits OT- Coordination Assessment Upper Extremity Finger to Nose Test Within Functional Limits OT-Muscle Tone Assessment Muscle Tone WNL Yes M9 OT- IP Assessment and Plan Start: 07/04/22 14:08 Freq: Status: Active Protocol: Document 07/06/22 11:15 [facility] (Rec: 07/06/22 13:07 [facility] [id number]) OT Summary Assessment and Plan Potential Rehabilitation Potential Good Analytic Complexity at Evaluation Moderate Summary OT Impairments Pain,Balance,Functional Mobility,Grooming,Dressing, Toileting,Bathing,Toilet Transfers,Shower Transfers, Activity Tolerance Progress Towards Goals Progressing Toward Goals Assessment Summary Pt able to transfer to the BS with VERO x2 with FWW. Pt will do well in rehab, but needs encouragement as per pt, I have no confidence. Pt to go to skilled rehab when medically stable. Goals Self-Feeding Goal Independent Grooming Goal Independent Dressing Goal Moderate Assistance Toileting Goal Moderate Assistance Bathing Goal Moderate Assistance Toilet Transfer Goal Independent Shower Transfer Goal Contact Guard Assistance Days to Meet Goals 14 Frequency of Treatment Frequency Of Treatment Once a Day Treatment Plan OT Treatment Plan ADL Training,Functional Mobility,Patient/Family Education,Discharge Planning Discharge Recommendations OT Discharge Recommendations SNF Rehab Transportation Needs at Discharge Wheelchair/Cabulance
--- NOTE | 2022-07-06 13:43 | CM.DPNOTE ---
DC Note Discharge to [facility] today, patient remains agreeable to plan. Auth through [employer] insurance secured by [facility] admitting team Transport arranged through [facility] transport (patient's secondary coverage). [facility] transport form completed and faxed to [facility] Transport. BLS p/u at 1600. RN and [facility] team made aware Wendy NAGY kindly agreed to assist in coordination of plan; all DC ppk including signed med list and [facility] faxed Plan: Discharge to [facility] SNF via BLS today JW
[2022-07-06 15:47] VITALS: BP 141/56; PULSE 80; RESP 18; TEMP 36.6; O2SAT 96
--- NOTE | 2022-07-06 16:05 | PC.NURSE ---
Pt is packed up and ready for discharge to [facility]. Called report to Mila from Admissions and gave full Patient status as well as answered all questions. Pt is ready for discharge out via BLS as soon as ambulance arrives.
== END 2022-07-06 17:03 | DRG 871 ==
LOC: ED 21:16 → AC 21:21 → ICU 07-03 01:26 → AC 07-05 00:41
PROVIDERS: Family Medicine; Student in an Organized Health Care Education/Training Program; Admitting Provider Nurse Practitioner Family; Emergency Provider Emergency Medicine; PCP Family Medicine; Referring Provider Emergency Medicine; Visit Provider Nurse Practitioner Family
DX: A41.9 Sepsis, unspecified organism (principal); G93.41 Metabolic encephalopathy; R57.8 Other shock; N17.9 Acute kidney failure, unspecified; Z68.42 Body mass index [BMI] 45.0-49.9, adult; N39.0 Urinary tract infection, site not specified; L03.317 Cellulitis of buttock; J96.11 Chronic respiratory failure with hypoxia; I50.30 Unspecified diastolic (congestive) heart failure; E66.01 Morbid (severe) obesity due to excess calories; R29.6 Repeated falls; R62.7 Adult failure to thrive; I16.0 Hypertensive urgency; E11.9 Type 2 diabetes mellitus without complications; J44.9 Chronic obstructive pulmonary disease, unspecified; B95.61 Methicillin susceptible Staphylococcus aureus infection as the cause of diseases classified elsewhere; B96.5 Pseudomonas (aeruginosa) (mallei) (pseudomallei) as the cause of diseases classified elsewhere; B96.20 Unspecified Escherichia coli [E. coli] as the cause of diseases classified elsewhere; I11.0 Hypertensive heart disease with heart failure; I27.20 Pulmonary hypertension, unspecified; D63.8 Anemia in other chronic diseases classified elsewhere; Z79.4 Long term (current) use of insulin; Z98.890 Other specified postprocedural states; Z20.822 Contact with and (suspected) exposure to COVID-19; Z99.81 Dependence on supplemental oxygen
CPT/HCPCS: 0241U; 36415; 36430; 36592; 70450; 71045; 71275; 74177; 80048; 80053; 81001; 82550; 82553; 82570; 82728; 82962; 83036; 83540; 83550; 83605; 83690; 83735; 83880; 84145; 84300; 84484; 85025; 85610; 85651; 85730; 86140; 86850; 86900; 86901; 87040; 87070; 87075; 87077; 87086; 87147; 87186; 87205; 87797; 93005; 93010; 93306; 94640; 94760; 96365; 97110; 97162; 97167; 97530; 97535; 99284; 99285; 99291; P9016; J0692; J0696; J0744; J1650; J2405; J3475; Q9967

== ENCOUNTER 2022-09-13 15:34 | Inpatient (IN) | payer OTHER, MEDICAID, SELFPAY ==
[2022-07-02 23:00] VITALS: BMI 45.8
[2022-09-13] VITALS (10 sets, daily range): BP systolic 120–149; BP diastolic 49–73; PULSE 75–89; RESP 16–17; TEMP 36–37.2; O2SAT 97–100; BMI 48.6
--- NOTE | 2022-09-13 15:56 | DI.RAD.S_ITS ---
PROCEDURE: XR CHEST 1V INDICATIONS: chest pain TECHNIQUE: One view of the chest was acquired. COMPARISON: [facility], CR, XR CHEST FOR PICC 1V, 07/03/2022, 11:13. [facility], CR, XR CHEST 1V, 07/02/2022, 20:06. FINDINGS: Surgical changes and devices: None. Lungs and pleura: Lungs are clear. No pleural effusions or pneumothorax. Mediastinum: Mediastinal contours appear normal. Heart size is enlarged. Bones and chest wall: No suspicious bony lesions. Overlying soft tissues appear unremarkable. Midthoracic corpectomy and surgical fusion. IMPRESSION: No acute cardiopulmonary process. Dictated by: Man Sher M.D. on 09/13/2022 at 15:42 Approved by: Man Sher M.D. on 09/13/2022 at 15:42
[2022-09-13 16:18] LABS: INR 1.1 (0.9-1.3)
[2022-09-13 16:20] LABS: PTT Partial Thromboplastin Tim 29 SECONDS (26-36)
[2022-09-13 16:34] LABS: Add Manual Diff / Slide Review NO; Basophils Absolute Auto 0 /uL (0-100); Basophils Percent Auto 0.5 % (0-2); Eosinophils Absolute Auto 100 /uL (0-450); Eosinophils Percent Auto 1.3 % (2-4); Hematocrit 32.6 % (36-46); Hemoglobin 10.4 g/dL (12.0-16.0); Lymphocytes Absolute Auto 1200 /uL (1100-4500); Lymphocytes Percent Auto 11.4 % (25-40); Mean Corpuscular HGB Conc 31.9 % (30-36); Mean Corpuscular Hemoglobin 25.6 PG (26-34); Mean Corpuscular Volume 80.3 fL (80-100); Monocytes Absolute Auto 600 /uL (0-900); Monocytes Percent Auto 5.6 % (3-14); Neutrophils Absolute Auto 8700 /uL (1500-7000); Neutrophils Percent Auto 81.2 % (50-75); Platelet Count 345 X10^3/uL (150-400); Red Blood Cell Count 4.06 X10^6/uL (4.0-5.2); Red Cell Distribution Width 17.1 % (11.6-14.8); White Blood Cell Count 10.7 X10^3/uL (4.5-11.0)
--- NOTE | 2022-09-13 16:40 | ED_ITS ---
HPI - Extremity Problem General Chief complaint: Extremity Problem,Nontraumatic Stated complaint: Sent from primary, both leg swelling/oozing fluid Time Seen by Provider: 09/13/22 16:39 Mode of arrival: Family Vehicle History of Present Illness HPI Narrative: This is a 61-year-old female with history of COPD on 2 L home O2, prior meningioma with seizure disorder after removal, CHF, chronic pain, prior osteomyelitis of the back, insulin-dependent diabetes who presents with complaint of increasing swelling, pain and oozing of her bilateral lower extremities. Patient states started about 3 days ago she is had weeping from her legs which is new. She states it has been soaking through her pants. Denies fevers but she feels chilled. She denies chest pain or shortness of breath. No nausea or vomiting. No diarrhea or constipation. No black or bloody stools. No dysuria, urgency or frequency. Patient states legs have had increasing swelling. There has been warmth and serous drainage bilaterally. Patient saw Dr. Lin her primary care physician who told her to come to the emergency department for IV antibiotics as he does not feel oral antibiotics will be adequate. Patient states she has not been using her inhalers but has been taking her other medications regularly. She states she had a prior meningioma removed. She also has had back surgery in the past for osteomyelitis. States she is allergic to penicillin makes her vomit and pass out. No tobacco, occasional alcohol, patient uses THC liquid but denies any other illicit. Dr. Lin is her PCP. Related Data Home Medications Medication Instructions Recorded Confirmed carvedilol 25 mg tablet 25 mg PO BID 09/20/18 07/03/22 potassium chloride 10 mEq 10 meq PO BID 09/20/18 07/03/22 tablet,extended release(part/cryst) insulin lispro 100 unit/mL 10 units SUBCUT 3-4XD PRN 10/10/18 07/03/22 subcutaneous solution Hyperglycemia gabapentin 300 mg capsule 300 mg PO TID 04/07/20 07/03/22 losartan 100 mg tablet 100 mg PO QAM 04/07/20 07/03/22 acetaminophen 325 mg capsule 650 mg PO Q4H PRN Pain, Moderate 05/16/20 07/03/22 amlodipine 10 mg tablet 10 mg PO QAM 05/16/20 07/03/22 ferrous sulfate 324 mg (65 mg 324 mg PO QAM 05/16/20 07/03/22 iron) tablet,delayed release furosemide 20 mg tablet 20 mg PO QAM PRN Edema 05/16/20 07/03/22 levetiracetam 750 mg tablet 750 mg PO BID 05/16/20 07/03/22 oxygen-air delivery systems 05/16/20 07/03/22 Previous Rx's Medication Instructions Recorded nystatin 100,000 unit/gram topical 1 applic topical TID PRN Rash #15 07/06/22 powder (Nystop) grams oxycodone 5 mg tablet 2.5 - 5 mg PO Q6H PRN Pain (Scale 07/06/22 Score 7-10) #30 tabs Allergies Allergy/AdvReac Type Severity Reaction Status Date / Time naproxen Allergy Mild MADE MY Verified 09/13/22 15:53 FACE NUMB Penicillins Allergy Mild Rash Verified 09/13/22 17:36 meperidine Allergy Unknown Verified 09/13/22 15:53 Sulfa (Sulfonamide Allergy Unknown Verified 09/13/22 15:53 Antibiotics) diphenhydramine AdvReac Shakiness Verified 09/13/22 15:53 [From Benadryl] Review of Systems Review of Systems ROS Unobtainable: All systems reviewed & are unremarkable except as noted in HPI and below Patient History Medical History Bilateral lower extremity edema Chronic respiratory failure COPD (chronic obstructive pulmonary disease) Diabetes History of cellulitis History of congestive heart failure Hypertension Hypoxia Meningioma Morbidly obese Personal history of osteomyelitis Surgical History History of craniotomy Status post appendectomy Status post cholecystectomy Family History Daughter No problems noted. Son No problems noted. Mother Diabetes mellitus Congestive heart failure Father Diabetes mellitus Social History household members: children Smoking Status: Never smoker Smoking Status: Never smoker alcohol intake frequency: holidays/special occasions only Substance Use Type: does not use and marijuana Exam Narrative Exam Narrative: GENERAL: Alert and oriented x three, obese female in moderate distress. Patient says appear chilled has some mild shaking. HEENT: Head normocephalic, atraumatic, EOMI, pupils reactive, face symmetric, moist mucous membranes, patient has nasal cannula at 2 L while in the room. NECK: Supple, full range of motion CARDIOVASCULAR: Regular rate and rhythm without murmurs, rubs or gallops. Patient has significant swelling bilateral lower extremities. RESPIRATORY: Breath sounds equal bilaterally, no wheezes rales or rhonchi. No tachypnea, speaks in full sentences. ABDOMEN: Soft, nontender. Normoactive bowel sounds all 4 quadrants. No guar ding or rebound, rigidity, no mass : No CVA tenderness EXTREMITIES: Normal range of motion, patient has 2+ edema bilateral lower extremities tracking up towards the abdomen. She has warmth, erythema with serous drainage soaking through her pants bilaterally. Neurovascularly intact, difficult to palpate dorsalis pedis pulses but patient has cap refill less than 2 seconds in all 5 toes. NEUROLOGICAL: Cranial nerves II through XII grossly intact. Moving all extremities SKIN: Warm, dry, no petechiae. Patient has erythema with cracking bilateral lower extremities, repeats tracts up to have 5 in below the knees bilaterally. Patient has significant erythema with whitish discharge in bilateral inguinal creases and vaginal area as well as some breakdown of the top layer of skin and erythema of the buttocks and sacrum but does not appear to be full thickness. Initial Vital Signs Initial Vital Signs: Vital Signs Temperature 99 F 09/13/22 15:48 Pulse Rate 85 09/13/22 15:48 Respiratory Rate 16 09/13/22 15:48 Blood Pressure 149/63 H 09/13/22 15:48 Pulse Oximetry 97 09/13/22 15:48 Oxygen Delivery Method Room Air 09/13/22 15:48 Course Orders Ordered: ED Orders 09/13/22 15:56 XR chest 1V Stat COVID19 -Nasal RAPID Stat EKG-12 Lead Stat 09/13/22 16:03 BNP [NT-proBNP (BNP-Adult 18+)] Stat Complete Blood Count AUTO DIFF Stat Comprehensive Metabolic Panel Stat Lactate (Lactic Acid) Stat Lipase Stat Magnesium Stat PTT Partial Thromboplastin Brian Stat Procalcitonin Stat Prothrombin Time INR Stat Troponin & CK Cardiac Panel Stat 09/13/22 17:14 COVID19 -Nasal RAPID Stat 09/13/22 18:10 Blood Culture Stat Acetaminophen (Acetaminophen 325 Mg Tablet) 650 mg PO Q6H PRN PRN Reason: Fever/Mild Pain (1-3) Amlodipine Besylate (Amlodipine 5 Mg Tablet) 10 mg PO DAILY [facility] Carvedilol (Carvedilol 12.5 Mg Tablet) 25 mg PO BID [facility] Dextrose (Dextrose 50 % In Water 25 Gm/50 Ml Syringe) 25 gm IV PRN PRN PRN Reason: Hypoglycemia Enoxaparin Sodium (Enoxaparin 40 Mg/0.4 Ml Syringe) 40 mg SUBCUT DAILY [facility] Gabapentin (Gabapentin 300 Mg Capsule) 300 mg PO TID [facility] Vancomycin HCl/Dextrose (Vancomycin) 2,000 mg in 400 mls @ 200 mls/hr IV NOW ONE Stop: 09/13/22 19:12 Cefepime HCl 2 gm/ Sodium (Chloride) 100 mls @ 200 mls/hr IV Q12H [facility] Vancomycin HCl 1,750 mg/ (Sodium Chloride) 500 mls @ 250 mls/hr IV Q24H [facility] Insulin Human Lispro (Insulin Lispro 100 Unit/Ml 3ml Vial) 0 unit SUBCUT ACHS [facility]IKEY[facility]; Protocol Levetiracetam (Levetiracetam 250 Mg Tablet) 750 mg PO BID [facility] Losartan Potassium (Losartan 50 Mg Tablet) 100 mg PO DAILY [facility] Melatonin (Melatonin 3 Mg Tablet) 6 mg PO BEDTIME PRN PRN Reason: Insomnia Naloxone HCl (Naloxone 0.4 Mg/Ml Vial) 0.2 mg IV Q2MIN PRN PRN Reason: Opiate Reversal Nystatin (Nystatin Powder 15gm) 1 applic TOP TID PRN PRN Reason: Rash Oxycodone HCl (Oxycodone Ir 5 Mg Tablet) 5 mg PO Q4HR PRN PRN Reason: Pain (Scale Score 7-10) Polyethylene Glycol (Polyethylene Glycol 3350 17 Gm Powd.Pack) 17 gm PO DAILY PRN PRN Reason: Constipation Potassium Chloride (Potassium Chloride 10 Meq Tab) 10 meq PO BIDWM [facility] Sennosides (Sennosides 8.6 Mg Tablet) 8.6 mg PO BID PRN PRN Reason: Constipation Vancomycin HCl (Vancomycin Trough) 1 request MIS 5330 [facility] Stop: 09/16/22 18:31 Discontinued Medications Furosemide (Furosemide 40 Mg/4 Ml Vial) 40 mg IV NOW ONE Stop: 09/13/22 17:13 Last Admin: 09/13/22 17:41 Dose: 40 mg Documented By: AT Ceftriaxone Sodium 2,000 mg/ (Sodium Chloride) 100 mls @ 200 mls/hr IV NOW ONE Stop: 09/13/22 17:27 Last Admin: 09/13/22 18:17 Dose: 200 mls/hr Documented By: AT Oxycodone HCl (Oxycodone Ir 5 Mg Tablet) 5 mg PO NOW ONE Stop: 09/13/22 17:13 Last Admin: 09/13/22 17:42 Dose: 5 mg Documented By: AT Vital Signs Vital signs: Vital Signs - 8 hr 09/13/22 15:48 09/13/22 16:28 09/13/22 16:29 Temperature 99 F Pulse Rate 85 89 Respiratory Rate 16 Blood Pressure 149/63 H 137/73 Pulse Oximetry 97 99 Oxygen Delivery Method Room Air Oxygen Flow Rate 09/13/22 16:29 09/13/22 16:30 09/13/22 16:30 Temperature Pulse Rate 89 85 Respiratory Rate Blood Pressure 139/65 Pulse Oximetry 99 100 Oxygen Delivery Method Nasal Cannula Nasal Cannula Oxygen Flow Rate 2 2 09/13/22 17:00 09/13/22 17:01 09/13/22 17:01 Temperature Pulse Rate 82 82 Respiratory Rate Blood Pressure 137/64 Pulse Oximetry 100 100 Oxygen Delivery Method Oxygen Flow Rate MDM - Extremity (Nontraumatic) Lab Data 09/13/22 16:03 09/13/22 16:03 Labs: Lab Results 09/13/22 09/13/22 09/13/22 Range/Units 16:03 16:03 16:03 WBC 10.7 (4.5-11.0) X10^3/uL RBC 4.06 (4.0-5.2) X10^6/uL Hgb 10.4 L (12.0-16.0) g/dL Hct 32.6 L (36-46) % MCV 80.3 (80-100) fL MCH 25.6 L (26-34) PG MCHC 31.9 (30-36) % RDW 17.1 H (11.6-14.8) % Plt Count 345 (150-400) X10^3/uL Neut % (Auto) 81.2 H (50-75) % Lymph % (Auto) 11.4 L (25-40) % Green % (Auto) 5.6 (3-14) % Eos % (Auto) 1.3 L (2-4) % Baso % (Auto) 0.5 (0-2) % Neut # (Auto) 8700 H (1228-6107) /uL Lymph # (Auto) 1200 (2312-3241) /uL Green # (Auto) 600 (0-900) /uL Eos # (Auto) 100 (0-450) /uL Baso # (Auto) 0 (0-100) /uL PT 13.0 H (10.1-12.7) SECONDS INR 1.1 (0.9-1.3) APTT 29 (26-36) SECONDS Sodium 138 (137-145) mmol/L Potassium 4.6 (3.4-5.1) mmol/L Chloride 102 (98-107) mmol/L Carbon Dioxide 28 (22-32) mmol/L BUN 26 H (7-17) mg/dL Creatinine 0.90 (0.52-1.04) mg/dL Estimated GFR > 60 (>60) mL/min BUN/Creatinine Ratio 28.9 H (6-22) Glucose 138 H (80-110) mg/dL Lactate (0.7-2.1) mmol/L Calcium 9.1 (8.4-10.2) mg/dL Magnesium 2.0 (1.6-2.3) mg/dL Total Bilirubin 0.8 (0.2-1.3) mg/dL AST 28 (14-36) IU/L ALT 38 H (<35) IU/L Alkaline Phosphatase 94 (38-126) U/L Total Creatine Kinase 69 (30-135) U/L CK-MB (CK-2) TNP CK-MB (CK-2) Rel Index TNP Troponin I < 0.012 (0.01-0.034) ng/mL NT-Pro-B Natriuret Pep (<125) pg/mL Total Protein 8.2 (6.3-8.2) g/dL Albumin 4.1 (3.5-5.0) g/dL Globulin 4.1 (1.7-4.1) g/dL Albumin/Globulin Ratio 1.0 (1.0-2.8) Lipase 28 (23-300) U/L Procalcitonin (<0.5) ng/mL 09/13/22 09/13/22 09/13/22 Range/Units 16:03 16:03 16:03 WBC (4.5-11.0) X10^3/uL RBC (4.0-5.2) X10^6/uL Hgb (12.0-16.0) g/dL Hct (36-46) % MCV (80-100) fL MCH (26-34) PG MCHC (30-36) % RDW (11.6-14.8) % Plt Count (150-400) X10^3/uL Neut % (Auto) (50-75) % Lymph % (Auto) (25-40) % Green % (Auto) (3-14) % Eos % (Auto) (2-4) % Baso % (Auto) (0-2) % Neut # (Auto) (3074-8126) /uL Lymph # (Auto) (2973-8214) /uL Green # (Auto) (0-900) /uL Eos # (Auto) (0-450) /uL Baso # (Auto) (0-100) /uL PT (10.1-12.7) SECONDS INR (0.9-1.3) APTT (26-36) SECONDS Sodium (137-145) mmol/L Potassium (3.4-5.1) mmol/L Chloride (98-107) mmol/L Carbon Dioxide (22-32) mmol/L BUN (7-17) mg/dL Creatinine (0.52-1.04) mg/dL Estimated GFR (>60) mL/min BUN/Creatinine Ratio (6-22) Glucose (80-110) mg/dL Lactate 1.1 (0.7-2.1) mmol/L Calcium (8.4-10.2) mg/dL Magnesium (1.6-2.3) mg/dL Total Bilirubin (0.2-1.3) mg/dL AST (14-36) IU/L ALT (<35) IU/L Alkaline Phosphatase (38-126) U/L Total Creatine Kinase (30-135) U/L CK-MB (CK-2) CK-MB (CK-2) Rel Index Troponin I (0.01-0.034) ng/mL NT-Pro-B Natriuret Pep 174 H (<125) pg/mL Total Protein (6.3-8.2) g/dL Albumin (3.5-5.0) g/dL Globulin (1.7-4.1) g/dL Albumin/Globulin Ratio (1.0-2.8) Lipase (23-300) U/L Procalcitonin 0.06 (<0.5) ng/mL Imaging Data Chest x-ray: Radiologist's Impression: [address] [id number] XRay Report Signed Patient: Rocío Enriquez MR#: [id number] : 1960 Acct:[id number] Age/Sex: 61 / F Date of Service: 09/13/22 Loc: ED Accession Number: [id number] ?? Procedure: XR chest 1V Ordering Provider: Erica Cooper D.O. PROCEDURE:? XR CHEST 1V ? INDICATIONS:? chest pain ? TECHNIQUE:? One view of the chest was acquired.? ? COMPARISON:? [facility], CR, XR CHEST FOR PICC 1V, 07/03/2022, 11:13.? [facility], CR, XR CHEST 1V, 07/02/2022, 20:06. ? FINDINGS:? ? Surgical changes and devices:? None.? ? Lungs and pleura:? Lungs are clear.? No pleural effusions or pneumothorax.? ? Mediastinum:? Mediastinal contours appear normal.? Heart size is enlarged.? ? Bones and chest wall:? No suspicious bony lesions.? Overlying soft tissues appear unremarkable.? Midthoracic corpectomy and surgical fusion. ? IMPRESSION:? No acute cardiopulmonary process. ? ? ? Dictated by: Man Sher M.D. on 09/13/2022 at 15:42 ? ? Approved by: Man Sher M.D. on 09/13/2022 at 15:42?? ECG Data Attestation EKG: I personally reviewed and interpreted this ECG as follows: Prior ECG tracings: available for review Interpretation: Sinus rhythm rate 83 MS 172 QRS [address]TC [address] No acute [address] elevation depression ap preciated. Patient has prior from 06/22/22 with no acute changes. MDM Narrative Medical decision making narrative: This is a 61-year-old female with history of CHF, chronic bilateral dependent edema, diabetes, hypertension, dyslipidemia, COPD on home O2 at 2 L who presents with increasing swelling, weeping, warmth erythema and signs of infection likely secondary to some skin breakdown from significant swelling and edema in her lower extremities. Patient is not febrile, she is not requiring extra O2 at this time. Patient's glucose is fairly appropriate at 1:38 a.m. with normal renal function and electrolytes BUN elevated at 26. Patient's BNP is only 174 with a negative troponin making me suspect more dependent edema. Chest x-ray is negative. Patient did have an echo on 07/04/2022 with mildly increased left leonie tricular wall thickness, an EF of 60-65% with normal left ventricular wall motion right ventricle was not easily visualized. And trace pericardial effusion. Lactate and procalcitonin are negative. Patient does not appear septic at this time. She does have significant erythema and warmth over major areas of redness would be consistent with infection versus breakdown. Patient also has quite a bit of skin breakdown in the groin and over the buttocks. Patient has what appears to be clear infection bilateral lower extremities which is circumferential. Patient does not appear septic but does appear to require more than oral antibiotics. She is high risk for infection with her diabetes history. Patient case was discussed with Dr. Dhaliwal, hospitalist. Patient has been given vanco. Dr. Dhaliwal would like to give a dose of Rocephin in conjunction. Spoke with patient she states she can take cephalexin without issue. Discharge Plan Departure Patient Disposition: Admitted as Observation Clinical Impression: Bilateral cellulitis of lower leg Admit Date/Time: 09/13/22 17:27 Admit Provider: Roel Dhaliwal
[2022-09-13 16:42] LABS: Alanine Aminotransferase 38 IU/L (<35); Albumin 4.1 g/dL (3.5-5.0); Alkaline Phosphatase 94 U/L (38-126); Aspartate Aminotransferase 28 IU/L (14-36); BUN Creatinine Ratio 28.9 (6-22); Bilirubin Total 0.8 mg/dL (0.2-1.3); Blood Urea Nitrogen 26 mg/dL (7-17); Calcium 9.1 mg/dL (8.4-10.2); Carbon Dioxide 28 mmol/L (22-32); Chloride 102 mmol/L (98-107); Creatine Kinase 69 U/L (30-135); Estimated Glomerular Filt Rate > 60 mL/min (>60); Globulin 4.1 g/dL (1.7-4.1); Glucose 138 mg/dL (80-110); Lactate (Lactic Acid) 1.1 mmol/L (0.7-2.1); Lipase 28 U/L (23-300); Potassium 4.6 mmol/L (3.4-5.1); Sodium 138 mmol/L (137-145); Total Protein 8.2 g/dL (6.3-8.2)
[2022-09-13 16:43] LABS: HEMOLYSIS 54 (0-50)
[2022-09-13 16:51] LABS: NT-proBNP (BNP-Adult 18+) 174 pg/mL (<125)
[2022-09-13 16:53] LABS: Troponin I < 0.012 ng/mL (0.01-0.034)
[2022-09-13 16:59] LABS: Procalcitonin 0.06 ng/mL (<0.5)
[2022-09-13] MEDS: FUROSEMIDE 40 MG/4 ML VIAL IV (17:41)
[2022-09-13] MEDS: OXYCODONE IR 5 MG TABLET PO (17:42)
[2022-09-13] MEDS: cefTRIAXone 2,000 MG in SODIUM CHLORIDE 0.9% 100 ML 200 MG IV (18:17)
[2022-09-13] MEDS: VANCOMYCIN 2,000 MG/400 ML PIGGYBACK 200 MG IV (19:47)
--- NOTE | 2022-09-13 20:05 | PC.NURSE ---
admit pt to from ED around 1830. alert and oriented. sizable yeast/moisture rash under breasts and skin folds to torso as well as groin and pannus. skin cleansed and moisture barrier applied. Edema and cellulitis to BLEs. BLEs elevated on [address] pillows[address] Pure wick in place to avoid moisture associated damage to cherie-area skin. IV abx infusing as ordered. pt oriented to room and plan of care.
[2022-09-13 20:14] LABS: COVID19 -Nasal RAPID Negative (Negative)
[2022-09-13 20:37] LABS: C-Reactive Protein Quant 6.8 mg/dL (<1.0)
[2022-09-13 20:41] LABS: Erythrocyte Sedimentation Rate 24 MM/HR (0-20)
--- NOTE | 2022-09-13 20:49 | PM.HP.1 ---
History of Present Illness History of Present Illness Date Patient Seen: 09/13/22 Time Patient Seen: 20:49 Chief complaint: Bilateral Lower ext cellulitus Narrative: Rocío Christinais a 61-year-old female with PMH significant for chronic respiratory failure w/ hypoxia and O2 dependence (2L at baseline), COPD, HTN, HFpEF, iron-deficiency anemia, morbid obesity class3, recurrent UTIs, T6 osteomyelitis, chronic bilateral lower extremity edema, venous stasis,& cellulitis, IDDM, and meningioma with left temporal lobe craniotomy.? Patient presented to the ED for increased bilateral lower extremity swelling and oozing discharge, with chills x3 days sent over by her PCP Dr. Lin for IV antibiotics. Patient was previously admitted 07/02-07/06/2022-completed Oral Cipro 07/09, d/c to SNF x1 month, been at home where she lives alone x1 month. D/C 07/09/[address] Dhaliwal:Sepsis w/shock, urinary tract infection/buttock cellulitis, metabolic encephalopathy. Initially admitted to acute care but rapidly developed septic shock transferred to ICU for pressors. Antibiotics cefepime and vancomycin. changed to IV cipro:Urine culture- E.coli , Buttock wound culture MRSA and pseudomonas, po cipro on discharge completed 07/09. Imaging studies were challenging as patient had previously extensive hardware placement secondary to spine surgery which affected the quality of imaging. 07/02/2022: BNP 758, BUN 7, 07/06/2022 H&H 8.4/26.9. On admit patient denies chest pain, shortness in breath, headache, changes in vision, difficulty swallowing, speech impairment, numbness, tingling, difficulty with ambulation, recent falls, head injury, LOC, fever, body aches, cough, abdominal pain, nausea, vomiting, urinary incontinence/retention, dysuria, frequency, urgency, hematuria, bowel changes, constipation, incontinence, melena, recent injury, or trauma. On admit patient is resting comfortably in bed pain is controlled, chills have resolved. Temp 98?, BP 120/49, 84, 16, 98% on 2 L, H&H 10.4/32.6, no white count neutrophils mildly elevated 8700, BUN 26, glucose 138. GFR, creatinine, lactate, troponin, procalcitonin, chest x-ray are all WNL. BNP 174 previous 758, EKG I personally reviewed sinus rhythm with a rate of [address] or T-wave changes and unchanged from 07/02 EKG. Patient admitted for bilateral lower extremity cellulitis. [facility] Medical History Bilateral lower extremity edema Chronic respiratory failure COPD (chronic obstructive pulmonary disease) Diabetes History of cellulitis History of congestive heart failure Hypertension Hypoxia Meningioma Morbidly obese Personal history of osteomyelitis Surgical History History of craniotomy Status post appendectomy Status post cholecystectomy Family History Daughter No problems noted. Son No problems noted. Mother Diabetes mellitus Congestive heart failure Father Diabetes mellitus Social History household members: children Smoking Status: Never smoker alcohol intake: current Meds Home Medications and Allergies Home Medications Medication Instructions Recorded Confirmed Type carvedilol 25 mg tablet 25 mg PO BID 09/20/18 09/13/22 History potassium chloride 10 mEq 10 meq PO BID 09/20/18 09/13/22 History tablet,extended release(part/cryst) insulin lispro 100 unit/mL 10 units SUBCUT 3-4XD PRN 10/10/18 09/13/22 History subcutaneous solution Hyperglycemia gabapentin 300 mg capsule 300 mg PO TID 04/07/20 09/13/22 History losartan 100 mg tablet 100 mg PO QAM 04/07/20 09/13/22 History acetaminophen 325 mg capsule 650 mg PO Q4H PRN Pain, Moderate 05/16/20 09/13/22 History amlodipine 10 mg tablet 10 mg PO QAM 05/16/20 09/13/22 History ferrous sulfate 324 mg (65 mg 324 mg PO QAM 05/16/20 09/13/22 History iron) tablet,delayed release furosemide 20 mg tablet 40 mg PO QAM PRN Edema 05/16/20 09/13/22 History levetiracetam 750 mg tablet 750 mg PO BID 05/16/20 09/13/22 History oxygen-air delivery systems 05/16/20 07/03/22 History nystatin 100,000 unit/gram topical 1 applic topical TID PRN Rash #15 07/06/22 09/13/22 Rx powder (Nystop) grams oxycodone 5 mg tablet 2.5 - 5 mg PO Q6H PRN Pain (Scale 07/06/22 09/13/22 Rx Score 7-10) #30 tabs metformin 500 mg PO QAM 09/13/22 09/13/22 History Allergies Allergy/AdvReac Type Severity Reaction Status Date / Time naproxen Allergy Mild MADE MY Verified 09/13/22 15:53 FACE NUMB Penicillins Allergy Mild Rash Verified 09/13/22 17:36 meperidine Allergy Unknown Verified 09/13/22 15:53 Sulfa (Sulfonamide Allergy Unknown Verified 09/13/22 15:53 Antibiotics) diphenhydramine AdvReac Shakiness Verified 09/13/22 15:53 [[facility] Review of Systems Review of Systems Narrative: All 12 point systems reviewed with the patient and are negative except otherwise documented. Exam Vital Signs (past 8 hours): - 09/13/22 15:48 09/13/22 16:28 09/13/22 16:29 Temperature 99 F Pulse Rate 85 89 Respiratory Rate 16 Blood Pressure 149/63 H 137/73 Pulse Oximetry 97 99 Oxygen Delivery Method Room Air Oxygen Flow Rate 09/13/22 16:29 09/13/22 16:30 09/13/22 16:30 Temperature Pulse Rate 89 85 Respiratory Rate Blood Pressure 139/65 Pulse Oximetry 99 100 Oxygen Delivery Method Nasal Cannula Nasal Cannula Oxygen Flow Rate 2 2 09/13/22 17:00 09/13/22 17:01 09/13/22 17:01 Temperature Pulse Rate 82 82 Respiratory Rate Blood Pressure 137/64 Pulse Oximetry 100 100 Oxygen Delivery Method Oxygen Flow Rate 09/13/22 17:30 09/13/22 17:31 09/13/22 17:31 Temperature Pulse Rate 84 Respiratory Rate Blood Pressure 126/67 Pulse Oximetry 100 98 Oxygen Delivery Method Oxygen Flow Rate 09/13/22 19:34 Temperature 96.8 F L Pulse Rate 75 Respiratory Rate 17 Blood Pressure 120/49 L Pulse Oximetry 100 Oxygen Delivery Method Oxygen Flow Rate 2 Oxygen Delivery Method Nasal Cannula Oxygen Flow Rate 2 Narrative Exam Narrative: General:? Patient is a mirella, excellent historian, morbidly obese female who appears older than stated age, and chronically ill appearing, in no acute distress at this time, in fact during intake patient frequently dosed off and begins snoring. HEENT:? Normocephalic, atraumatic, extraocular muscles intact, oral pharynx is clear and mucous membranes are severely dry, lips are cracking.? Neck is supple and symmetric, trachea is midline, no adenopathy, no thyroid enlargement, nontender, no masses palpated.? Negative for JVD Chest:? Breathing without nasal flaring, retractions, mildly labored and tachypneic,? chronic respiratory failure on 2 L nasal cannula Lungs:? Auscultation of all lung ramirez poor air exchange, shallow breathing, occasional crackles noted in bilateral bases. Cardio:? Bradycardic regular rate and rhythm without murmur, rubs, or gallops, no carotid bruit, no cardiac pulsations present. Abdomen:? Soft nontender, negative for organomegaly, or masses.? Bowel sounds hypoactive are present in all 4 quadrants without guarding or rebound, no CVA tenderness. Musculoskeletal:? Muscle strength and tone equal but decreased noted deconditioning, muscle wasting, no deformity, crepitus, effusions, cyanosis, clubbing, noted bilateral lower extremity chronic venous stasis/ cellulitis weeping, cracking with scaling, erythemic, 2+edema tracking upwards towards abdomen, radial and pedal pulses are normal, difficult to palpate dorsalis pedis pulses, cap refill less than 2 seconds in all 5 toes. Skin:? Warm and poor skin turgor, fungal erythematous areas bilateral axilla, abdominal fold, bilateral groin,?vaginal, some breakdown of the top layer of skin and erythema of the buttocks and sacrum but does not appear to be full thickness. Neuro:? Alert and orientated x3, significant difficulty and pain? moving all extremities, sensation to touch intact, no gross deficits noted of cranial nerves. Psych:? Patient has appropriate affect, mental status attitude thought context and judgment are appropriate for age. Objective Labs 09/13/22 16:03 09/13/22 16:03 Labs: Laboratory Results - last 24 hr 09/13/22 09/13/22 09/13/22 16:03 16:03 16:03 WBC 10.7 RBC 4.06 Hgb 10.4 L Hct 32.6 L MCV 80.3 MCH 25.6 L MCHC 31.9 RDW 17.1 H Plt Count 345 Neut % (Auto) 81.2 H Lymph % (Auto) 11.4 L [place] % (Auto) 5.6 Eos % (Auto) 1.3 L Baso % (Auto) 0.5 Neut # (Auto) 8700 H Lymph # (Auto) 1200 [place] # (Auto) 600 Eos # (Auto) 100 Baso # (Auto) 0 ESR PT 13.0 H INR 1.1 APTT 29 Sodium 138 Potassium 4.6 Chloride 102 Carbon Dioxide 28 BUN 26 H Creatinine 0.90 Estimated GFR > 60 BUN/Creatinine Ratio 28.9 H Glucose 138 H Lactate Calcium 9.1 Magnesium 2.0 Total Bilirubin 0.8 AST 28 ALT 38 H Alkaline Phosphatase 94 Total Creatine Kinase 69 CK-MB (CK-2) TNP CK-MB (CK-2) Rel Index TNP Troponin I < 0.012 C-Reactive Protein NT-Pro-B Natriuret Pep Total Protein 8.2 Albumin 4.1 Globulin 4.1 Albumin/Globulin Ratio 1.0 Lipase 28 Procalcitonin SARS-CoV-2 (PCR) 09/13/22 09/13/22 09/13/22 16:03 16:03 16:03 WBC RBC Hgb Hct MCV MCH MCHC RDW Plt Count Neut % (Auto) Lymph % (Auto) [place] % (Auto) Eos % (Auto) Baso % (Auto) Neut # (Auto) Lymph # (Auto) [place] # (Auto) Eos # (Auto) Baso # (Auto) ESR PT INR APTT Sodium Potassium Chloride Carbon Dioxide BUN Creatinine Estimated GFR BUN/Creatinine Ratio Glucose Lactate 1.1 Calcium Magnesium Total Bilirubin AST ALT Alkaline Phosphatase Total Creatine Kinase CK-MB (CK-2) CK-MB (CK-2) Rel Index Troponin I C-Reactive Protein NT-Pro-B Natriuret Pep 174 H Total Protein Albumin Globulin Albumin/Globulin Ratio Lipase Procalcitonin 0.06 SARS-CoV-2 (PCR) 09/13/22 09/13/22 09/13/22 16:03 16:03 19:40 WBC RBC Hgb Hct MCV MCH MCHC RDW Plt Count Neut % (Auto) Lymph % (Auto) [place] % (Auto) Eos % (Auto) Baso % (Auto) Neut # (Auto) Lymph # (Auto) [place] # (Auto) Eos # (Auto) Baso # (Auto) ESR 24 H PT INR APTT Sodium Potassium Chloride Carbon Dioxide BUN Creatinine Estimated GFR BUN/Creatinine Ratio Glucose Lactate Calcium Magnesium Total Bilirubin AST ALT Alkaline Phosphatase Total Creatine Kinase CK-MB (CK-2) CK-MB (CK-2) Rel Index Troponin I C-Reactive Protein 6.8 H NT-Pro-B Natriuret Pep Total Protein Albumin Globulin Albumin/Globulin Ratio Lipase Procalcitonin SARS-CoV-2 (PCR) Negative Assessment & Plan Assessment & Plan narrative: Rocío Christinais a 61-year-old female with PMH significant for chronic respiratory failure w/ hypoxia and O2 dependence (2L at baseline), COPD, HTN, pulmonary HTN, HFpEF, iron-deficiency anemia, morbid obesity class 3, recurrent UTIs, T6 osteomyelitis, chronic bilateral lower extremity edema, venous stasis,and cellulitis, IDDM, and meningioma with left temporal lobe craniotomy.? Patient presented to the ED for increased bilateral lower extremity swelling and oozing discharge, with chills x3 days. Patient was previously admitted 07/02-07/06/2022-Sepsis, secondary to urinary tract infection/buttock cellulitis Patient was sent in by her PCP Dr. Lin for worsening bilateral lower extremity cellulitis requiring IV antibiotic treatment. Patient to receive IV antibiotic treatment-pending cultures, and gentle diuresis for edema. Acute on chronic bilateral lower extremity cellulitis, with chronic venous stasis, present on admission -patient's bilateral lower extremity cellulitis edema looks improved from last admit. Due to patient morbid obesity, inability to manage health at home, with chronic infections recommend SNF placement on d/c. -[employer] consult placed -admitted 07/02-07/06/2022-urinary tract infection/buttock cellulitis -Urine culture E.coli, wound culture MRSA and pseudomonas changed to cipro. -patient given Rocephin 2 g and vanco in ED, continue on broad-spectrum coverage cefepime and vanco pending culture results -ordered ESR, CRP, blood/wound/urine cultures -MRSA nasal swab positive -patient has no white count, vitals are stable though BP remains soft, WBC, lactate, & procalcitonin are all WNL -will continue to monitor closely for sepsis/septic shock Essential hypertension, chronic, present on admission Antihypertensive medications have been held in the setting of soft blood pressures 126/67, 120/49- ED 149/63, baseline [id number] -due to patient's current soft B/P held bedtime meds, continue in am Lasix, amlodipine, famotidine, hydroxyzine, losartan, carvedilol -notify provider for HR>120, RR>36, MAP<70, BP <90/60, BP >180/105, Temp>102, U/O<50cc/hr ->30min -Continue bolus HFpEF and pulmonary HTN, unknown if systolic or diastolic, chronic, present on admission -based on BNP and physical exam patient does not show s/s of HF exacerbation -Echo 07/04 with EF 60-65% and RVSP of 52. w/trace pericardial effusion -continue coreg -Lasix 20mg IV BID -admit BNP 174, 07/02: BNP 758 -fluid restriction, daily weights, low-sodium Insulin-dependent diabetes, acute, present on admission -initial BS 138 -patient admitted under diabetic protocol, sliding scale for coverage(replacing patient's NovoLog) -hold metformin -A1c pending History of left temporal lobe craniotomy, due to meningioma, chronic, present on admission -continue Keppra (seizure prophylaxis s/p craniotomy) Chronic respiratory failure on 2 L/O2 at home secondary to COPD, chronic, present on admission -continue oxygen support, respiratory consult as needed -On admit: 98% on 2 L nasal cannula History of T6 osteomyelitis, chronic, present on admission -No present complaints of back pain.? low threshold for additional imaging if she begins complaining of localized back pain given the significant hardware in her spine. Morbid obesity severe, Class3, acute on chronic, present on admission -as evidence by BMI 48.6 up from 45.8 on last admit 07/02/2022 -dietary consult on previous admit -the patient is at much higher risk for medical and surgical complications due to obesity as it relates to chronic illnesses COPD, hypertension, CHF, and acute on chronic cellulitis.? The patient's obesity increases the difficulty and complexity of medical and/or surgical interventions, management and increases the chances of poor outcome such as morbidity and mortality as well as impaired wound healing. Iron-deficiency anemia, chronic, present on admission -continue ferrous sulfate Code status:Full Surrogate decision maker: Scot Contreras POA DVT/VTE prophylaxis:? Lovenox and SCDs Disposition:? Patient admitted for OBS, expected length of stay less than 2 midnights. I have utilized all available immediate resources to obtain, update, or review the patient's current medications. I confirmed that the patient's advanced care plan is present, Code status is documented and/or surrogate decision maker is listed in the patient's medical record. I have personally reviewed patient's chart notes from PCP, specialists, diagnostic imaging, and laboratory results. Quality VTE Deep Vein Thrombosis/Pulmonary Embolism Present on Admission: No
[2022-09-13 21:15] LABS: MRSA (Nasal) PCR DETECTED (Not Detect)
[2022-09-13] MEDS: GABAPENTIN 300 MG CAPSULE PO (21:55)
[2022-09-13] MEDS: levETIRAcetam 250 MG TABLET 750 MG PO (21:55)
[2022-09-13] MEDS: diphenhydrAMINE 25 MG TABLET PO (22:27)
[2022-09-13] MEDS: CEFEPIME 2 GM in SODIUM CHLORIDE 0.9% 100 ML IV (22:28)
[2022-09-13] MEDS: ACETAMINOPHEN 325 MG TABLET 650 MG PO (22:30)
[2022-09-14] VITALS (7 sets, daily range): BP systolic 100–130; BP diastolic 41–52; PULSE 66–79; RESP 17–75; TEMP 36.2–36.8; O2SAT 93–100; BMI 48.6
[2022-09-14] MEDS: OXYCODONE IR 5 MG TABLET PO (02:16)
[2022-09-14 06:42] LABS: BUN Creatinine Ratio 25.8 (6-22); Blood Urea Nitrogen 25 mg/dL (7-17); Calcium 8.4 mg/dL (8.4-10.2); Carbon Dioxide 29 mmol/L (22-32); Chloride 102 mmol/L (98-107); Estimated Glomerular Filt Rate > 60 mL/min (>60); Glucose 99 mg/dL (80-110); HEMOLYSIS < 15 (0-50); Potassium 3.8 mmol/L (3.4-5.1); Sodium 138 mmol/L (137-145)
[2022-09-14 06:48] LABS: Add Manual Diff / Slide Review NO; Basophils Absolute Auto 0 /uL (0-100); Basophils Percent Auto 0.5 % (0-2); Eosinophils Absolute Auto 300 /uL (0-450); Hemoglobin 9.2 g/dL (12.0-16.0); Lymphocytes Absolute Auto 1200 /uL (1100-4500); Lymphocytes Percent Auto 16.7 % (25-40); Mean Corpuscular HGB Conc 31.8 % (30-36); Mean Corpuscular Hemoglobin 25.4 PG (26-34); Monocytes Absolute Auto 400 /uL (0-900); Monocytes Percent Auto 5.9 % (3-14); Neutrophils Absolute Auto 5400 /uL (1500-7000); Neutrophils Percent Auto 72.9 % (50-75); Platelet Count 282 X10^3/uL (150-400); Red Blood Cell Count 3.62 X10^6/uL (4.0-5.2); Red Cell Distribution Width 17.1 % (11.6-14.8); White Blood Cell Count 7.4 X10^3/uL (4.5-11.0)
--- NOTE | 2022-09-14 07:09 | P.PN_ITS ---
Subjective Subjective Interval history: Patient's LE's hurt with lots of weeping she says. Feels better since abx though. Exam Vital Signs (past 8 hours): - 09/14/22 01:44 Temperature 98.2 F Pulse Rate 69 Respiratory Rate 18 Blood Pressure 109/41 L Pulse Oximetry 93 Oxygen Flow Rate 2 Oxygen Delivery Method Nasal Cannula Oxygen Flow Rate 2 Narrative Exam Narrative: General:? Patient is a mirella, excellent historian, morbidly obese female who appears older than stated age, and chronically ill appearing HEENT:? Normocephalic, atraumatic, extraocular muscles intact, oral pharynx is clear and mucous membranes are severely dry, lips are cracking.? Neck is supple and symmetric, trachea is midline, no adenopathy, no thyroid enlargement, nontender, no masses palpated.? Negative for JVD Chest:? Breathing without nasal flaring, retractions, mildly labored and tachypneic,? chronic respiratory failure on 2 L nasal cannula Lungs:? Auscultation of all lung ramirez poor air exchange, shallow breathing, occasional crackles noted in bilateral bases. Cardio:? Bradycardic regular rate and rhythm without murmur, rubs, or gallops, no carotid bruit, no cardiac pulsations present. Abdomen:? Soft nontender, negative for organomegaly, or masses.? Bowel sounds hypoactive are present in all 4 quadrants without guarding or rebound, no CVA tenderness. Musculoskeletal:? Muscle strength and tone equal but decreased noted deconditioning, muscle wasting, no deformity, crepitus, effusions, cyanosis, clubbing, noted bilateral lower extremity chronic venous stasis/cellulitis weeping, cracking with scaling, erythemic, 2+edema tracking upwards towards abdomen, radial and pedal pulses are normal, difficult to palpate dorsalis pedis pulses, cap refill less than 2 seconds in all 5 toes. Skin:? Warm and poor skin turgor, fungal erythematous areas bilateral axilla, abdominal fold, bilateral groin,?vaginal, some breakdown of the top layer of skin and erythema of the buttocks and sacrum but does not appear to be full thickness. Neuro:? Alert and orientated x3, significant difficulty and pain? moving all extremities, sensation to touch intact, no gross deficits noted of cranial nerves. Psych:? Patient has appropriate affect, mental status attitude thought context and judgment are appropriate for age. Objective Labs 09/14/22 06:02 09/14/22 06:02 Labs: Laboratory Results - last 24 hr 09/13/22 09/13/22 09/13/22 16:03 16:03 16:03 WBC 10.7 RBC 4.06 Hgb 10.4 L Hct 32.6 L MCV 80.3 MCH 25.6 L MCHC 31.9 RDW 17.1 H Plt Count 345 Neut % (Auto) 81.2 H Lymph % (Auto) 11.4 L Lamar % (Auto) 5.6 Eos % (Auto) 1.3 L Baso % (Auto) 0.5 Neut # (Auto) 8700 H Lymph # (Auto) 1200 Lamar # (Auto) 600 Eos # (Auto) 100 Baso # (Auto) 0 ESR PT 13.0 H INR 1.1 APTT 29 Sodium 138 Potassium 4.6 Chloride 102 Carbon Dioxide 28 BUN 26 H Creatinine 0.90 Estimated GFR > 60 BUN/Creatinine Ratio 28.9 H Glucose 138 H Lactate Calcium 9.1 Magnesium 2.0 Total Bilirubin 0.8 AST 28 ALT 38 H Alkaline Phosphatase 94 Total Creatine Kinase 69 CK-MB (CK-2) TNP CK-MB (CK-2) Rel Index TNP Troponin I < 0.012 C-Reactive Protein NT-Pro-B Natriuret Pep Total Protein 8.2 Albumin 4.1 Globulin 4.1 Albumin/Globulin Ratio 1.0 Lipase 28 Procalcitonin Nasal Screen MRSA (PCR) SARS-CoV-2 (PCR) 09/13/22 09/13/22 09/13/22 16:03 16:03 16:03 WBC RBC Hgb Hct MCV MCH MCHC RDW Plt Count Neut % (Auto) Lymph % (Auto) Lamar % (Auto) Eos % (Auto) Baso % (Auto) Neut # (Auto) Lymph # (Auto) Lamar # (Auto) Eos # (Auto) Baso # (Auto) ESR PT INR APTT Sodium Potassium Chloride Carbon Dioxide BUN Creatinine Estimated GFR BUN/Creatinine Ratio Glucose Lactate 1.1 Calcium Magnesium Total Bilirubin AST ALT Alkaline Phosphatase Total Creatine Kinase CK-MB (CK-2) CK-MB (CK-2) Rel Index Troponin I C-Reactive Protein NT-Pro-B Natriuret Pep 174 H Total Protein Albumin Globulin Albumin/Globulin Ratio Lipase Procalcitonin 0.06 Nasal Screen MRSA (PCR) SARS-CoV-2 (PCR) 09/13/22 09/13/22 09/13/22 16:03 16:03 19:40 WBC RBC Hgb Hct MCV MCH MCHC RDW Plt Count Neut % (Auto) Lymph % (Auto) Lamar % (Auto) Eos % (Auto) Baso % (Auto) Neut # (Auto) Lymph # (Auto) Lamar # (Auto) Eos # (Auto) Baso # (Auto) ESR 24 H PT INR APTT Sodium Potassium Chloride Carbon Dioxide BUN Creatinine Estimated GFR BUN/Creatinine Ratio Glucose Lactate Calcium Magnesium Total Bilirubin AST ALT Alkaline Phosphatase Total Creatine Kinase CK-MB (CK-2) CK-MB (CK-2) Rel Index Troponin I C-Reactive Protein 6.8 H NT-Pro-B Natriuret Pep Total Protein Albumin Globulin Albumin/Globulin Ratio Lipase Procalcitonin Nasal Screen MRSA (PCR) Detected H SARS-CoV-2 (PCR) 09/13/22 09/14/22 09/14/22 19:40 06:02 06:02 WBC 7.4 RBC 3.62 L Hgb 9.2 L Hct 29.0 L MCV 80.0 MCH 25.4 L MCHC 31.8 RDW 17.1 H Plt Count 282 Neut % (Auto) 72.9 Lymph % (Auto) 16.7 L Lamar % (Auto) 5.9 Eos % (Auto) 4.0 Baso % (Auto) 0.5 Neut # (Auto) 5400 Lymph # (Auto) 1200 Lamar # (Auto) 400 Eos # (Auto) 300 Baso # (Auto) 0 ESR PT INR APTT Sodium 138 Potassium 3.8 Chloride 102 Carbon Dioxide 29 BUN 25 H Creatinine 0.97 Estimated GFR > 60 BUN/Creatinine Ratio 25.8 H Glucose 99 Lactate Calcium 8.4 Magnesium Total Bilirubin AST ALT Alkaline Phosphatase Total Creatine Kinase CK-MB (CK-2) CK-MB (CK-2) Rel Index Troponin I C-Reactive Protein NT-Pro-B Natriuret Pep Total Protein Albumin Globulin Albumin/Globulin Ratio Lipase Procalcitonin Nasal Screen MRSA (PCR) SARS-CoV-2 (PCR) Negative [facility] Medical History Bilateral lower extremity edema Chronic respiratory failure COPD (chronic obstructive pulmonary disease) Diabetes History of cellulitis History of congestive heart failure Hypertension Hypoxia Meningioma Morbidly obese Personal history of osteomyelitis Surgical History History of craniotomy Status post appendectomy Status post cholecystectomy Family History Daughter No problems noted. Son No problems noted. Mother Diabetes mellitus Congestive heart failure Father Diabetes mellitus Social History household members: children Smoking Status: Never smoker alcohol intake: current Assessment & Plan Assessment & Plan narrative: Rocío Christinais a 61-year-old female with PMH significant for chronic respiratory failure w/ hypoxia and O2 dependence (2L at baseline), COPD, HTN, pulmonary HTN, HFpEF, iron-deficiency anemia, morbid obesity class 3, recurrent UTIs, T6 osteomyelitis, chronic bilateral lower extremity edema, venous stasis,and cellulitis, IDDM, and meningioma with left temporal lobe craniotomy.? Patient presented to the ED for increased bilateral lower extremity swelling and oozing discharge, with chills x3 days. Patient was previously admitted 07/02-07/06/2022-Sepsis, secondary to urinary tract infection/buttock cellulitis Patient was sent in by her PCP Dr. Lin for worsening bilateral lower extremity cellulitis requiring IV antibiotic treatment. Patient to receive IV antibiotic treatment-pending cultures, and gentle diuresis for edema. Acute on chronic bilateral lower extremity cellulitis, with chronic venous stasis, present on admission -patient's bilateral lower extremity cellulitis edema looks improved from last admit. Due to patient morbid obesity, inability to manage health at home, with chronic infections recommend SNF placement on d/c. -[employer] consult placed -admitted 07/02-07/06/2022-urinary tract infection/buttock cellulitis -Urine c ulture E.coli, wound culture MRSA and pseudomonas changed to cipro. -patient given Rocephin 2 g and vanco in ED, continue on broad-spectrum coverage cefepime and vanco pending culture results -ordered ESR, CRP, blood/wound/urine cultures -MRSA nasal swab positive -patient has no white count, vitals are stable though BP remains soft, WBC, lactate, & procalcitonin are all WNL -will continue to monitor closely for sepsis/septic shock -wound care consulted and recommended tubular compression stockings and f/u in wound care clinic Essential hypertension, chronic, present on admission Antihypertensive medications have been held in the setting of soft blood pressures 126/67, 120/49- ED 149/63, baseline [id number] -due to patient's current soft B/P held Lasix, amlodipine, famotidine, hydroxyzine, losartan, carvedilol HFpEF and pulmonary HTN, unknown if systolic or diastolic, chronic, present on admission -based on BNP and physical exam patient does not show s/s of HF exacerbation -Echo 07/04 with EF 60-65% and RVSP of 52. w/trace pericardial effusion -holding coreg -Lasix 20mg IV BID given then stopped due to soft BP -admit BNP 174, 07/02: BNP 758 -fluid restriction, daily weights, low-sodium Insulin-dependent diabetes, acute, present on admission -initial BS 138 -patient admitted under diabetic protocol, sliding scale for coverage(replacing patient's NovoLog) -hold metformin -A1c pending History of left temporal lobe craniotomy, due to meningioma, chronic, present on admission -continue Keppra (seizure prophylaxis s/p craniotomy) Chronic respiratory failure on 2 L/O2 at home secondary to COPD, chronic, present on admission -continue oxygen support, respiratory consult as needed -On admit: 98% on 2 L nasal cannula History of T6 osteomyelitis, chronic, present on admission -No present complaints of back pain.? low threshold for additional imaging if she begins complaining of localized back pain given the significant hardware in her spine. Morbid obesity severe, Class3, acute on chronic, present on admission -as evidence by BMI 48.6 up from 45.8 on last admit 07/02/2022 -dietary consult on previous admit -the patient is at much higher risk for medical and surgical complications due to obesity as it relates to chronic illnesses COPD, hypertension, CHF, and acute on chronic cellulitis.? The patient's obesity increases the difficulty and complexity of medical and/or surgical interventions, management and increases the chances of poor outcome such as morbidity and mortality as well as impaired wound healing. Iron-deficiency anemia, chronic, present on admission -continue ferrous sulfate Code status:Full Surrogate decision maker: Scot Contreras POA DVT/VTE prophylaxis:? Lovenox and SCDs I have discussed with the hospital multidisciplinary care team including social work rounds. Dispo: Home in 1-2 days pending improvement in cellulitis. Quality VTE Deep Vein Thrombosis/Pulmonary Embolism Present on Admission: No
[2022-09-14] MEDS: levETIRAcetam 250 MG TABLET 750 MG PO ×2 (08:39→20:04)
[2022-09-14] MEDS: ENOXAPARIN 40 MG/0.4 ML SYRINGE SUBCUT (08:39)
[2022-09-14] MEDS: POTASSIUM CHLORIDE 10 MEQ TAB PO ×2 (08:40→16:16)
[2022-09-14] MEDS: GABAPENTIN 300 MG CAPSULE PO ×3 (08:40→20:04)
--- NOTE | 2022-09-14 09:18 | CM.DANOTE ---
Addendum entered by Rosemarie Silva R.N. 09/14/22 15:51: Called Leann at [facility] to follow up, and she indicated that she sent this to her nursing service director to review, most likely will not know until the am, auth has not yet been submitted. Addendum entered by Rosemarie Silva R.N. 09/14/22 13:37: Spoke to Leann at [facility]. She is reviewing patient, is familiar with her and think that they should be able to take her back. She should be able to initiate auth for [employer], will call this DC Bung Sewer back if there are any problems. Addendum entered by Rosemarie Silva R.N. 09/14/22 13:12: Faxed over P.T, and O.T. notes to [facility], as well as her micro results, and med list. Have not yet heard back, but was told by colleague that they do have beds available. Addendum entered by Rosemarie Silva R.N. 09/14/22 11:06: Have not yet heard back from [facility], and patient has not yet worked with P.T. Hospitalist has not yet seen patient, will see what he says. Did speak to [facility] as back up, spoke to Clare, she remembers patient from [facility] when she was at their facility, and can't accept. Original Note: DCP: Case received, EMR reviewed and met with patient. Daughter, Diana, also called via phone in patient's room. Introduced self and role. Patient gave permission for this DC Bung Sewer to speak to daughter over the phone on her behalf. Was able to obtain information regarding patient's baseline activity status as well as her current living situation at home. DCP assessment completed with information currently available. Patient is a 61 year old female who admitted yesterday afternoon to the care of the hospitalist team. PCP: Dr. Lin. Payer: confirmed: [employer]vantage. Patient came to the hospital via private vehicle secondary to having increased swelling, pain and oozing, of her bilateral lower extremities. Notes indicate that this started about a few days ago. Patient has history of COPD on 2 liters of oxygen, prior meningioma with seizure disorder. Patient had seen Dr. Lin, primary provider recently, was told to come to ER for IV ABO, for he did not feel that oral ABO is adequate. Patient had recently been to [facility], from last admission here. Notes indicated that she was admitted for skilled placement. Patient admitted for acute on chronic bilateral lower extremity cellulitis Met with patient. She was sitting up in bed, alert and oriented. Daughter, Diana, called on her phone. Confirmed that she lives here in [place] with family. She does not drive. Does not have [employer] caregivers. Uses a cane/ walker. Is ok going back to [facility] if needed. Let her know that if there are no beds there, will have to attempt other facilities, is ok with this. Called [facility], left a message. Wendy faxed them referral. She has [employer], will see if they can accept. P: DCP to work on getting patient to retirement. Will follow up with [facility] again today. If they can't, will reach out to other facilities. Rosemarie Silva RN/Web Feeder Discharge Planning/Care Management Advanced directive, confirm from FAMILY Start: 09/13/22 19:34 Freq: Q24H Status: Active Protocol: Document 09/13/22 19:34 CT (Rec: 09/14/22 01:20 CT [id number]) Advance Directive, confirm on record Time 19:30 Person contacted patient Copy received No CM Discharge Assessment Start: 09/14/22 09:14 Freq: Status: Active Protocol: Document 09/14/22 09:15 VM (Rec: 09/14/22 09:18 [id number]) Discharge Planning Assessment Assigned Global Compensation Analyst Rosemarie Silva RN/Web Feeder Advance Directives? Yes: POLST Advance Directives on File Yes History Provided By Patient,Medical Record Prior Living Arrangements House Household Members children Type of transporation used prior to Relies on Others admit Independent with ADL's Yes Is patient alert and oriented? Yes Needs Assistance With Bathing,Meal Prep,Home Chores / Shopping Caregiver for Another No DME Already Rented / Owned Oxygen Comment Patient on home 02 at baseline continous, 2 liters Patient/Family Preference [facility] Facility Comment Called and sent referral to [facility], patient has been there before, hopes to retur there. Comment Patient and medical team requesting SNF for continued rehabilation when patient medically stable. Discharge Plan [facility] Facility Transportation Arrangement Facility Referrals Initiated [facility] Additional Comment Hopes to go back to [facility] . If patient plan is SNF: Has PASSR been No: Will complete today completed? Medicare Choice List Provided Yes SNF/HH Preference Patient hopes for [facility], but willing to go to other facilities that accept her insurance if [facility] can't accept. Has Agency SNF been contacted Yes Whiteboard Updated in Patient Room with Yes name and ext. # of Global Compensation Analyst Review Status In Process Next Review Type Continued Stay Review
[2022-09-14] MEDS: CEFEPIME 2 GM in SODIUM CHLORIDE 0.9% 100 ML IV ×2 (10:49→22:53)
--- NOTE | 2022-09-14 11:45 | OT.IP.EVAL ---
Current Diagnoses Cellulitis of right lower limb (09/13/22) Past Medical History (Last Reviewed 09/14/22 @ 01:10 by SHAKIRA Decker) Bilateral lower extremity edema Chronic respiratory failure COPD (chronic obstructive pulmonary disease) Diabetes History of cellulitis History of congestive heart failure Hypertension Hypoxia Meningioma Morbidly obese Personal history of osteomyelitis Surgical History (Last Reviewed 09/14/22 @ 01:10 by SHAKIRA Decker) History of craniotomy Status post appendectomy Status post cholecystectomy Occupational Therapy Inpatient Evaluation/Re-Eval M1 PT/OT-IP Prior Functional Status Start: 09/14/22 08:56 Freq: NEEDED Status: Active Protocol: Document 09/14/22 12:21 ES (Rec: 09/14/22 12:43 ES [id number]) Medical Review Prior Functional Status Medical History Reviewed Yes Diet/Fluid Consistency Regular Communication WFL Mobility and Gait Indep with use of 4WW inside the home, manual w/c outside the home. Does not drive. Activities of Daily Living and IADL's Daughter assists with all ADL' s. Prior Functional Level (Other details) 2L O2 at baseline. Social History Household Members children Living Arrangements House Number of Floors (Floors) One Floor Number of Stairs To Enter/Railing? 1 small step to enter Home Environment Tub/Shower Home Equipment Four Wheel Walker,Manual Wheelchair,Bedside Commode, Raised Toilet Seat Without Armrests,Tub Transfer Bench, Hand Held Shower,Lift Recliner ,Hospital Bed,Grab Bars In Shower Additional Social History Comment Patient reported that her lift recliner and hospital bed are not currently working; the chair is stuck in sitting position and the HOB is stuck in partially elevated position . There are no rails on her bed. Patient stated she typically sleeps in her recliner but can sleep in her bed. M2 OT-IP Current Condition Start: 09/14/22 12:39 Freq: Status: Active Protocol: Document 09/14/22 11:45 [facility] (Rec: 09/14/22 12:57 [facility] [id number]) Occupational Therapy Current Condition Current Condition Evaluation Date 09/14/22 Treatment Diagnosis Bilateral LE cellulitis Diagnosis Onset Date 09/13/22 M3 OT- IP Subjective and Pain Start: 09/14/22 12:39 Freq: Status: Active Protocol: Document 09/14/22 11:45 [facility] (Rec: 09/14/22 12:57 [facility] [id number]) OT- Subjective Occupational Therapy Visit Type Type Initial Evaluation Visit Start Time 11:45 Visit Stop Time 12:15 Total Visit Minutes 30 Occupational Therapy Visit Comments Patient Comments Pt agreed to get up. Patient/Caregiver Goals To go to skilled rehab. OT Pain Assessment Pain When Pain Assessed At Rest Pain Present Pain Present Denied Pain M4 OT- IP ADL's Start: 09/14/22 12:39 Freq: Status: Active Protocol: Document 09/14/22 11:45 [facility] (Rec: 09/14/22 12:57 [facility] [id number]) OT [id number] Comments OT Self-Feeding Comments Not at meal time. OT ADL-Grooming General Evaluation Grooming Ability Standby Assistance Areas Needing Assistance Retrieving/Set-up of Grooming Items Comments OT Grooming Comments Pt able to do while seated as getting too tired while standing at the sink with the FWW. OT ADL-Oral Care General Eval Oral Care Ability Independent OT ADL-Dressing General Eval Lower Body Dressing Ability Maximum Assistance Areas Needing Assistance Underpants/Brief,Socks Comments OT Dressing Comments MAXA for socks and brief at this time. OT ADL-Toileting General Evaluation Toileting Ability Total Assistance Comments OT Toileting Comments Pt use of purewick. OT ADL-Bathing Comments OT Bathing Comments Not performed. M5 OT- IP IADL's Start: 09/14/22 12:39 Freq: Status: Active Protocol: Document 09/14/22 11:45 [facility] (Rec: 09/14/22 12:57 [facility] [id number]) OT-Instrumental Activities of Daily Living Deficits IADL Deficits Identified Deficits Home Safety Awareness Awareness of Need for Assistance at Home Good Awareness Medication Management Medication Management Caregiver Administers Money Management Money Management Caregiver Provides Assistance Meal Preparation Meal Preparation Caregiver Provides Assist Tailor Men'S Ready To Wear Tailor Men'S Ready To Wear Caregiver Provides Assist M6 OT- IP Functional Cognition Start: 09/14/22 12:39 Freq: Status: Active Protocol: Document 09/14/22 11:45 [facility] (Rec: 09/14/22 12:57 [facility] [id number]) Cognitive Factors Limiting Selfcare Function Cognitive Ability Level of Alertness Alert Patient Orientation Name,Place,Situation Attention Span Ability Capable of Focused Attention, Capable of Sustained Attention Ability to Follow Commands Able to Follow One Step Commands Cognitive Comments Cognitive Assessment Comments Pt able to follow commands for ADL and mobility needs and needing initial encouragement to follow commands. OT- Vision and Hearing OT- Hearing Assessment OT- Hearing Assessment WFL OT- Vision Assessment Visual Acuity WFL M7 OT- IP Mobility and Balance Start: 09/14/22 12:39 Freq: Status: Active Protocol: Document 09/14/22 11:45 [facility] (Rec: 09/14/22 12:57 [facility] [id number]) OT- Bed Mobility Assessment Supine to Sit Supine to Sit Assist Moderate Assistance,Head of Bed Elevated,Bedrails Scooting Scooting to Edge of Bed Moderate Assistance OT-Transfer Assessment Sit to and From Stand Sit to and from Stand Contact Guard Assistance Transfers Transfer Ability Contact Guard Assistance Technique Transfer Destination Bed,Chair Transfer Technique Stand Step Pivot Devices Transfer Assistive Devices Gait Belt,Front Wheeled Walker Comments Mobility Comments MODA to assist with her trunk to get upright and use of rail to assist as well. MODA to scoot forwards. CGA to stand due to high bed and able to get to the sink to do some grooming needs before getting fatigued and needing to sit down to the recliner. Pt on 2 .5L of O2 and from 90-94% Therapist having to assist for O2 tubing at this time. OT- Balance Assessment Sitting Balance and Reactions Static Sitting Balance Ability Good Dynamic Sitting Balance Ability Good Standing Balance and Reactions Static Standing Balance Ability Good Dynamic Standing Balance Ability Fair M8 OT- IP Objective Assessments Start: 09/14/22 12:39 Freq: Status: Active Protocol: Document 09/14/22 11:45 [facility] (Rec: 09/14/22 12:57 [facility] [id number]) OT Gross Range of Motion Upper Extremity Range of Motion ROM Impairments LUE decreased at end ROm and needing right hand to assist to raise her LUE. OT Strength Comments Strength Comments grossly WFL for needs. M9 OT- IP Assessment and Plan Start: 09/14/22 12:39 Freq: Status: Active Protocol: Document 09/14/22 11:45 [facility] (Rec: 09/14/22 12:57 [facility] [id number]) OT Summary Assessment and Plan Potential Rehabilitation Potential Good Analytic Complexity at Evaluation Moderate Summary OT Impairments Pain,Strength,Balance, Functional Mobility,Self- Feeding,Grooming,Dressing, Toileting,Bathing,Toilet Transfers,Shower Transfers, Activity Tolerance Progress Towards Goals Slow Progress due to Pain,Slow Progress due to Medical Issues,Slow Progress due to Activity Tolerance Assessment Summary Pt MOD complexity and here due to bilateral cellulitis, decreased activity tolerance , and now needing assist for bed mobility and ADl needs. Prior pt able to do basic ADL' s on her own and able to get to and from the bathroom to her recliner with is [address] per pt at least 4 times a day. Pt today getting tired just walking appropriately 12 feet to the sink and having to go back to the recliner to sit. Pt would greatly benefit from skilled rehab prior to going home. Otherwise hopefully as pt improves may benefit from home with assist and home health. Goals Self-Feeding Goal Independent Grooming Goal Independent Dressing Goal Independent Toileting Goal Independent Bathing Goal Standby Assistance Toilet Transfer Goal Independent Shower Transfer Goal Independent Patient/Caregiver Education Goal Demonstrate Energy Conservation and Pacing Days to Meet Goals 10 Frequency of Treatment Frequency Of Treatment Once a Day Treatment Plan OT Treatment Plan ADL Training,Functional Mobility,Patient/Family Education,Discharge Planning Other Treatment Recommendations and Next Stand at complete task of Treatment Focus grooming and oral care need and O2 above 90% on 2L. Discharge Recommendations OT Discharge Recommendations SNF, if pt improves possibly home with assist and home health Transportation Needs at Discharge Private Vehicle,Wheelchair/ Cabulance
--- NOTE | 2022-09-14 12:43 | PT.IIE ---
Current Diagnoses Cellulitis of right lower limb (09/13/22) Surgical History (Last Reviewed 09/14/22 @ 01:10 by SHAKIRA Decker) History of craniotomy Status post appendectomy Status post cholecystectomy Medical History (Last Reviewed 09/14/22 @ 01:10 by SHAKIRA Decker) Bilateral lower extremity edema Chronic respiratory failure COPD (chronic obstructive pulmonary disease) Diabetes History of cellulitis History of congestive heart failure Hypertension Hypoxia Meningioma Morbidly obese Personal history of osteomyelitis Physical Therapy Inpatient Evaluation/Re-Eval M1 PT/OT-IP Prior Functional Status Start: 09/14/22 08:56 Freq: NEEDED Status: Active Protocol: Document 09/14/22 12:21 ES (Rec: 09/14/22 12:43 ES [id number]) Medical Review Prior Functional Status Medical History Reviewed Yes Diet/Fluid Consistency Regular Communication WFL Mobility and Gait Indep with use of 4WW inside the home, manual w/c outside the home. Does not drive. Activities of Daily Living and IADL's Daughter assists with all ADL' s. Prior Functional Level (Other details) 2L O2 at baseline. Social History Household Members children Living Arrangements House Number of Floors (Floors) One Floor Number of Stairs To Enter/Railing? 1 small step to enter Home Environment Tub/Shower Home Equipment Four Wheel Walker,Manual Wheelchair,Bedside Commode, Raised Toilet Seat Without Armrests,Tub Transfer Bench, Hand Held Shower,Lift Recliner ,Hospital Bed,Grab Bars In Shower Additional Social History Comment Patient reported that her lift recliner and hospital bed are not currently working; the chair is stuck in sitting position and the HOB is stuck in partially elevated position . There are no rails on her bed. Patient stated she typically sleeps in her recliner but can sleep in her bed. M2 PT-IP Current Condition Start: 09/14/22 08:56 Freq: NEEDED Status: Active Protocol: Document 09/14/22 12:21 ES (Rec: 09/14/22 12:43 ES [id number]) Physical Therapy Current Condition Current Condition Evaluation Date 09/14/22 Treatment Diagnosis BLE cellulitis, weakness Onset Date 09/13/22 M3 PT-IP Subjective Start: 09/14/22 08:56 Freq: NEEDED Status: Active Protocol: Document 09/14/22 12:21 ES (Rec: 09/14/22 12:43 ES [id number]) Subjective Physical Therapy Visit Type Type Initial Evaluation Visit Start Time 11:45 Visit Stop Time 12:11 Total Visit Minutes 26 Notes OT present Physical Therapy Visit Comments Patient Comments Patient resting comfortably in bed, denied pain in her legs, stated that they've gone down in size a lot since admission . Is having some itching in her feet. Patient agreeable to work with therapy. M4 PT-IP Mobility and Gait Start: 09/14/22 08:56 Freq: NEEDED Status: Active Protocol: Document 09/14/22 12:21 ES (Rec: 09/14/22 12:43 ES [id number]) PT-Bed Mobility Assessment Supine to Sit Supine to Sit Moderate Assistance,1 Person Assistance,Head of Bed Elevated,Bedrails Scooting Scooting to Edge of Bed Moderate Assistance PT-Transfer Assessment Sit to and From Stand Sit to and from Stand Contact Guard Assistance,Use of Upper Extremities Equipment Transfer Assistive Device Gait Belt,Front Wheeled Walker Orthotic/Prosthetic Devices or Brace: No Transfers Transfer Destination Chair Transfer Technique Ambulation Transfer Ability Level of Assist Contact Guard Assistance,Use of Upper Extremities Comments Mobility Comments Patient required assist for supine to sit for assisting trunk to upright, with HOB at maximum upright position and use of B rails. She required assist scooting hips to EOB. Gait Assessment Gait Gait Assistance Required: Contact Guard Assist Distance (Feet) 30 Assistive Devices Assistive Device Gait Belt,Front Wheeled Walker Orthotic/Prosthetic Devices or Brace: No Gait Deviations General Gait Pattern Decreased Stride Length, Decreased Feet Clearance,Wide Based Gait Factors Limiting Gait Function Factors Limiting Gait Function Decreased Strength,Limited Range of Motion Comments Gait Comments Patient ambulated in room with FWW without LOB. She demonstrated decreased heel- toe pattern 2/2 swelling, limited ankle mobility. She was fatigued after 30 ft requiring seated rest. PT-Balance Assessment Sitting Balance and Reactions Static Sitting Balance Ability Good Dynamic Sitting Balance Ability Good Standing Balance and Reactions Static Standing Balance Ability Good Dynamic Standing Balance Ability Good Device Used FWW Functional Assessments Functional Tests 5 Times Sit to Stand 0 without UE support Other Functional Tests Performed Modified Aamir Index = 45 ( score of 21-60 indicates severe dependency) M5 PT-IP Objective Assessments Start: 09/14/22 08:56 Freq: NEEDED Status: Active Protocol: Document 09/14/22 12:21 ES (Rec: 09/14/22 12:43 ES [id number]) Orientation Orientation/Cognition Level of Alertness Alert Orientation Name,Age,Birthday,Month,Date, Year,Day of Week,Place, Situation Language Function Ability No Deficits Noted Safety Awareness Understands Safety Issues Memory Description No Deficits Noted Gross Range of Motion Upper Extremity ROM Assessment Within Functional Limits Lower Extremity ROM Assessment Bilaterally Impaired Impairments Limited hip motion due to body habitus. Strength Upper Extremity Strength Assessment Within Functional Limits Lower Extremity Strength Assessment Bilaterally Impaired Comments Strength Comments BLE's grossly 4/5. Unable to perform sit to stand without use of UE's from standard chair height. Coordination Assessment Gross Coordination Gross Coordination WNL Muscle Tone Muscle Tone WNL Yes M6 PT-IP Treatment Start: 09/14/22 08:56 Freq: NEEDED Status: Active Protocol: Document 09/14/22 12:21 ES (Rec: 09/14/22 12:43 ES [id number]) Physical Therapy Treatment Education Education Provided Safety M7 PT-IP Assessment and Plan Start: 09/14/22 08:56 Freq: NEEDED Status: Active Protocol: Document 09/14/22 12:21 ES (Rec: 09/14/22 12:43 ES [id number]) PT Summary Assessment and Plan Potential Rehabilitation Potential Good Status of Condition at Evaluation Stable Summary Impairments ROM,Strength,Bed Mobility, Transfers,Gait,Activity Tolerance Assessment Summary Patient is a 61 year old female who presents with impaired functional mobility due to the above problems. She required increased assistance with bed mobility from her baseline. She was fatigued with short distance ambulation using a FWW. She would benefit from further skilled PT to increase strength and activity tolerance to reduce level of assistance needed for basic household mobility, and may benefit from subacute rehab vs HHPT to address this prior to returning home to reduce caregiver burden on her daughter. Goals Bed Mobility Goal Independent Transfer Goal Independent,Four Wheeled Walker Gait Goal Independent,Four Wheel Walker Gait Distance 60 ft with seated rest Other Goals Patient will be able to ascend /descend 1 step with 4WW and SBA to get in/out of her home. Days to Meet Goals 7 Frequency of Treatment Frequency Of Treatment Once a Day Treatment Plan Physical Therapy Treatment Plan Bed Mobility Training,Transfer Training,Gait Training, Therapeutic Exercise,Discharge Planning Precautions Other Precautions Fall risk Weight Bearing Status Weight Bearing Status Weight Bear as Tolerated Recommendations To Nursing Amount of Assist Needed 1 Person Assist Discharge Recommendations PT Discharge Recommendations Home vs SNF Other Discharge Recommendations HH vs SNF Transportation Needs at Discharge Private Vehicle
[2022-09-14 14:17] LABS: Enterococcus faecalis Not Detected (Not Detect); Enterococcus faecium Not Detected (Not Detect); Listeria monocytogenes Not Detected (Not Detect); Staphylococcus epidermidis Not Detected (Not Detect); Staphylococcus lugdunensis Not Detected (Not Detect); Staphylococcus species DETECTED (Not Detect); Streptococcus agalactiae (Gr B Not Detected (Not Detect); Streptococcus pneumonia Not Detected (Not Detect); Streptococcus pyogenes (Gr A) Not Detected (Not Detect); Streptococcus species Not Detected (Not Detect)
[2022-09-14 14:18] LABS: Acinetobacter calcoa-baumannii Not Detected (Not Detect); Bacteroides fragilis Not Detected (Not Detect); Candida albicans Not Detected (Not Detect); Candida auris Not Detected (Not Detect); Candida glabrata Not Detected (Not Detect); Candida krusei Not Detected (Not Detect); Candida parapsilosis Not Detected (Not Detect); Candida tropicalis Not Detected (Not Detect); Cryptococcus neoformans/gatti Not Detected (Not Detect); Enterobacter cloacae complex Not Detected (Not Detect); Enterobacterales Not Detected (Not Detect); Haemophilus influenzae Not Detected (Not Detect); Klebsiella aerogenes Not Detected (Not Detect); Neisseria meningitidis Not Detected (Not Detect); Proteus species Not Detected (Not Detect); Pseudomonas aeruginosa Not Detected (Not Detect); Salmonella species Not Detected (Not Detect); Serratia marcescens Not Detected (Not Detect); Stenotrophomonas maltophilia Not Detected (Not Detect)
--- NOTE | 2022-09-14 16:14 | P.CONS_ITS ---
History of Present Illness Consult details Date Patient Seen: 09/14/22 Time Patient Seen: 15:45 Chief complaint: Bilateral Lower ext cellulitus Narrative: The patient is a 61-year-old female with type 2 diabetes, obesity, COPD, and congestive heart failure who was admitted yesterday with a 3 day history of redness, pain, swelling, and watery drainage from both lower extremities. She was admitted with cellulitis and started on IV antibiotic therapy. Since admi ssion the patient reports that the swelling and pain have significantly improved. She also reports that the drainage has pretty much resolved. She does have a prior history of chronic venous insufficiency and lymphedema and has previously been seen at the wound center for draining ulcers however she never returned for follow up. She also gives a past history of having cellulitis of both legs in the past. She has not noted any recent open wounds. The patient does not routine only use compression to control her lower extremity swelling. Meds Home Medications and Allergies Home Medications Medication Instructions Recorded Confirmed Type carvedilol 25 mg tablet 25 mg PO BID 09/20/18 09/13/22 History potassium chloride 10 mEq 10 meq PO BID 09/20/18 09/13/22 History tablet,extended release(part/cryst) insulin lispro 100 unit/mL 10 units SUBCUT 3-4XD PRN 10/10/18 09/13/22 History subcutaneous solution Hyperglycemia gabapentin 300 mg capsule 300 mg PO TID 04/07/20 09/13/22 History losartan 100 mg tablet 100 mg PO QAM 04/07/20 09/13/22 History acetaminophen 325 mg capsule 650 mg PO Q4H PRN Pain, Moderate 05/16/20 09/13/22 History amlodipine 10 mg tablet 10 mg PO QAM 05/16/20 09/13/22 History ferrous sulfate 324 mg (65 mg 324 mg PO QAM 05/16/20 09/13/22 History iron) tablet,delayed release furosemide 20 mg tablet 40 mg PO QAM PRN Edema 05/16/20 09/13/22 History levetiracetam 750 mg tablet 750 mg PO BID 05/16/20 09/13/22 History oxygen-air delivery systems 05/16/20 09/14/22 History nystatin 100,000 unit/gram topical 1 applic topical TID PRN Rash #15 07/06/22 09/13/22 Rx powder (Nystop) grams oxycodone 5 mg tablet 2.5 - 5 mg PO Q6H PRN Pain (Scale 07/06/22 09/13/22 Rx Score 7-10) #30 tabs metformin 500 mg PO QAM 09/13/22 09/13/22 History Allergies Allergy/AdvReac Type Severity Reaction Status Date / Time naproxen Allergy Mild MADE MY Verified 09/13/22 15:53 FACE NUMB Penicillins Allergy Mild Rash Verified 09/13/22 17:36 meperidine Allergy Unknown Verified 09/13/22 15:53 Sulfa (Sulfonamide Allergy Unknown Verified 09/13/22 15:53 Antibiotics) diphenhydramine AdvReac Shakiness Verified 09/13/22 15:53 [From Ya] Review of Systems Musculoskeletal Comments: Lower extremity swelling Integumentary/Breasts Comments: Erythema of both lower extremities with watery drainage Exam Vital Signs (past 8 hours): - 09/14/22 09:13 09/14/22 13:00 Temperature 97.5 F L Pulse Rate 75 Respiratory Rate 75 H Blood Pressure 130/52 L Pulse Oximetry 94 100 Oxygen Delivery Method Nasal Cannula Oxygen Flow Rate 2 2 Oxygen Delivery Method Nasal Cannula Oxygen Flow Rate 2 Const Other: The patient is an obese female who is awake, alert, and oriented and is in no apparent distress. HENAR Other: Unremarkable Skin Other: Erythema of both lower extremities with tenderness particularly around the left medial malleolus, no visible open wounds noted, no active drainage identified Extrem Other: Resolving lower extremity edema Objective Labs 09/14/22 06:02 09/14/22 06:02 Labs: Laboratory Results - last 24 hr 09/13/22 09/13/22 09/13/22 16:03 16:03 16:03 WBC 10.7 RBC 4.06 Hgb 10.4 L Hct 32.6 L MCV 80.3 MCH 25.6 L MCHC 31.9 RDW 17.1 H Plt Count 345 Neut % (Auto) 81.2 H Lymph % (Auto) 11.4 L [place] % (Auto) 5.6 Eos % (Auto) 1.3 L Baso % (Auto) 0.5 Neut # (Auto) 8700 H Lymph # (Auto) 1200 [place] # (Auto) 600 Eos # (Auto) 100 Baso # (Auto) 0 ESR PT 13.0 H INR 1.1 APTT 29 Sodium 138 Potassium 4.6 Chloride 102 Carbon Dioxide 28 BUN 26 H Creatinine 0.90 Estimated GFR > 60 BUN/Creatinine Ratio 28.9 H Glucose 138 H Lactate Calcium 9.1 Magnesium 2.0 Total Bilirubin 0.8 AST 28 ALT 38 H Alkaline Phosphatase 94 Total Creatine Kinase 69 CK-MB (CK-2) TNP CK-MB (CK-2) Rel Index TNP Troponin I < 0.012 C-Reactive Protein NT-Pro-B Natriuret Pep Total Protein 8.2 Albumin 4.1 Globulin 4.1 Albumin/Globulin Ratio 1.0 Lipase 28 Procalcitonin Nasal Screen MRSA (PCR) A.calcoaceticus-baumannii cmplx PCR Bacteroides fragilis Alexandra albicans (PCR) Alexandra auris (PCR) C. glabrata (PCR) C. krusei (PCR) C. parapsilosis (PCR) C. tropicalis (PCR) SARS-CoV-2 (PCR) C. neoform/gattii (PCR) Enterobacterales (PCR) E. cloacae complex PCR Enterococc faecalis PCR Enterococc faecium PCR E. coli (PCR) H. influenzae (PCR) Klebsiella aerogenes (PCR) Klebsiella oxytoca PCR Klebsiella pneumoniae List. monocytogenes PCR N. meningitidis (PCR) Proteus species (PCR) Salmonella spp. (PCR) Serratia marcescens PCR Staphylococcus sp PCR Staph aureus (PCR) Staph epidermidis (PCR) Staph lugdunensis PCR S. maltophilia (PCR) Streptococcus sp PCR Group A Strep (PCR) Strep agalactiae (PCR) Strep pneumoniae (PCR) P. aeruginosa (PCR) 09/13/22 09/13/22 09/13/22 16:03 16:03 16:03 WBC RBC Hgb Hct MCV MCH MCHC RDW Plt Count Neut % (Auto) Lymph % (Auto) [place] % (Auto) Eos % (Auto) Baso % (Auto) Neut # (Auto) Lymph # (Auto) [place] # (Auto) Eos # (Auto) Baso # (Auto) ESR PT INR APTT Sodium Potassium Chloride Carbon Dioxide BUN Creatinine Estimated GFR BUN/Creatinine Ratio Glucose Lactate 1.1 Calcium Magnesium Total Bilirubin AST ALT Alkaline Phosphatase Total Creatine Kinase CK-MB (CK-2) CK-MB (CK-2) Rel Index Troponin I C-Reactive Protein NT-Pro-B Natriuret Pep 174 H Total Protein Albumin Globulin Albumin/Globulin Ratio Lipase Procalcitonin 0.06 Nasal Screen MRSA (PCR) A.calcoaceticus-baumannii cmplx PCR Bacteroides fragilis Alexandra albicans (PCR) Alexandra auris (PCR) C. glabrata (PCR) C. krusei (PCR) C. parapsilosis (PCR) C. tropicalis (PCR) SARS-CoV-2 (PCR) C. neoform/gattii (PCR) Enterobacterales (PCR) E. cloacae complex PCR Enterococc faecalis PCR Enterococc faecium PCR E. coli (PCR) H. influenzae (PCR) Klebsiella aerogenes (PCR) Klebsiella oxytoca PCR Klebsiella pneumoniae List. monocytogenes PCR N. meningitidis (PCR) Proteus species (PCR) Salmonella spp. (PCR) Serratia marcescens PCR Staphylococcus sp PCR Staph aureus (PCR) Staph epidermidis (PCR) Staph lugdunensis PCR S. maltophilia (PCR) Streptococcus sp PCR Group A Strep (PCR) Strep agalactiae (PCR) Strep pneumoniae (PCR) P. aeruginosa (PCR) 09/13/22 09/13/22 09/13/22 16:03 16:03 17:49 WBC RBC Hgb Hct MCV MCH MCHC RDW Plt Count Neut % (Auto) Lymph % (Auto) [place] % (Auto) Eos % (Auto) Baso % (Auto) Neut # (Auto) Lymph # (Auto) [place] # (Auto) Eos # (Auto) Baso # (Auto) ESR 24 H PT INR APTT Sodium Potassium Chloride Carbon Dioxide BUN Creatinine Estimated GFR BUN/Creatinine Ratio Glucose Lactate Calcium Magnesium Total Bilirubin AST ALT Alkaline Phosphatase Total Creatine Kinase CK-MB (CK-2) CK-MB (CK-2) Rel Index Troponin I C-Reactive Protein 6.8 H NT-Pro-B Natriuret Pep Total Protein Albumin Globulin Albumin/Globulin Ratio Lipase Procalcitonin Nasal Screen MRSA (PCR) A.calcoaceticus-baumannii cmplx PCR Not detected Bacteroides fragilis Not detected Alexandra albicans (PCR) Not detected Alexandra auris (PCR) Not detected C. glabrata (PCR) Not detected C. krusei (PCR) Not detected C. parapsilosis (PCR) Not detected C. tropicalis (PCR) Not detected SARS-CoV-2 (PCR) C. neoform/gattii (PCR) Not detected Enterobacterales (PCR) Not detected E. cloacae complex PCR Not detected Enterococc faecalis PCR Not detected Enterococc faecium PCR Not detected E. coli (PCR) Not detected H. influenzae (PCR) Not detected Klebsiella aerogenes (PCR) Not detected Klebsiella oxytoca PCR Not detected Klebsiella pneumoniae Not detected List. monocytogenes PCR Not detected N. meningitidis (PCR) Not detected Proteus species (PCR) Not detected Salmonella spp. (PCR) Not detected Serratia marcescens PCR Not detected Staphylococcus sp PCR Detected H Staph aureus (PCR) Not detected Staph epidermidis (PCR) Not detected Staph lugdunensis PCR Not detected S. maltophilia (PCR) Not detected Streptococcus sp PCR Not detected Group A Strep (PCR) Not detected Strep agalactiae (PCR) Not detected Strep pneumoniae (PCR) Not detected P. aeruginosa (PCR) Not detected 09/13/22 09/13/22 09/14/22 19:40 19:40 06:02 WBC 7.4 RBC 3.62 L Hgb 9.2 L Hct 29.0 L MCV 80.0 MCH 25.4 L MCHC 31.8 RDW 17.1 H Plt Count 282 Neut % (Auto) 72.9 Lymph % (Auto) 16.7 L [place] % (Auto) 5.9 Eos % (Auto) 4.0 Baso % (Auto) 0.5 Neut # (Auto) 5400 Lymph # (Auto) 1200 [place] # (Auto) 400 Eos # (Auto) 300 Baso # (Auto) 0 ESR PT INR APTT Sodium Potassium Chloride Carbon Dioxide BUN Creatinine Estimated GFR BUN/Creatinine Ratio Glucose Lactate Calcium Magnesium Total Bilirubin AST ALT Alkaline Phosphatase Total Creatine Kinase CK-MB (CK-2) CK-MB (CK-2) Rel Index Troponin I C-Reactive Protein NT-Pro-B Natriuret Pep Total Protein Albumin Globulin Albumin/Globulin Ratio Lipase Procalcitonin Nasal Screen MRSA (PCR) Detected H A.calcoaceticus-baumannii cmplx PCR Bacteroides fragilis Alexandra albicans (PCR) Alexandra auris (PCR) C. glabrata (PCR) C. krusei (PCR) C. parapsilosis (PCR) C. tropicalis (PCR) SARS-CoV-2 (PCR) Negative C. neoform/gattii (PCR) Enterobacterales (PCR) E. cloacae complex PCR Enterococc faecalis PCR Enterococc faecium PCR E. coli (PCR) H. influenzae (PCR) Klebsiella aerogenes (PCR) Klebsiella oxytoca PCR Klebsiella pneumoniae List. monocytogenes PCR N. meningitidis (PCR) Proteus species (PCR) Salmonella spp. (PCR) Serratia marcescens PCR Staphylococcus sp PCR Staph aureus (PCR) Staph epidermidis (PCR) Staph lugdunensis PCR S. maltophilia (PCR) Streptococcus sp PCR Group A Strep (PCR) Strep agalactiae (PCR) Strep pneumoniae (PCR) P. aeruginosa (PCR) 09/14/22 06:02 WBC RBC Hgb Hct MCV MCH MCHC RDW Plt Count Neut % (Auto) Lymph % (Auto) [place] % (Auto) Eos % (Auto) Baso % (Auto) Neut # (Auto) Lymph # (Auto) [place] # (Auto) Eos # (Auto) Baso # (Auto) ESR PT INR APTT Sodium 138 Potassium 3.8 Chloride 102 Carbon Dioxide 29 BUN 25 H Creatinine 0.97 Estimated GFR > 60 BUN/Creatinine Ratio 25.8 H Glucose 99 Lactate Calcium 8.4 Magnesium Total Bilirubin AST ALT Alkaline Phosphatase Total Creatine Kinase CK-MB (CK-2) CK-MB (CK-2) Rel Index Troponin I C-Reactive Protein NT-Pro-B Natriuret Pep Total Protein Albumin Globulin Albumin/Globulin Ratio Lipase Procalcitonin Nasal Screen MRSA (PCR) A.calcoaceticus-baumannii cmplx PCR Bacteroides fragilis Alexandra albicans (PCR) Alexandra auris (PCR) C. glabrata (PCR) C. krusei (PCR) C. parapsilosis (PCR) C. tropicalis (PCR) SARS-CoV-2 (PCR) C. neoform/gattii (PCR) Enterobacterales (PCR) E. cloacae complex PCR Enterococc faecalis PCR Enterococc faecium PCR E. coli (PCR) H. influenzae (PCR) Klebsiella aerogenes (PCR) Klebsiella oxytoca PCR Klebsiella pneumoniae List. monocytogenes PCR N. meningitidis (PCR) Proteus species (PCR) Salmonella spp. (PCR) Serratia marcescens PCR Staphylococcus sp PCR Staph aureus (PCR) Staph epidermidis (PCR) Staph lugdunensis PCR S. maltophilia (PCR) Streptococcus sp PCR Group A Strep (PCR) Strep agalactiae (PCR) Strep pneumoniae (PCR) P. aeruginosa (PCR) [facility] Medical History Bilateral lower extremity edema Chronic respiratory failure COPD (chronic obstructive pulmonary disease) Diabetes History of cellulitis History of congestive heart failure Hypertension Hypoxia Meningioma Morbidly obese Personal history of osteomyelitis Surgical History History of craniotomy Status post appendectomy Status post cholecystectomy Family History Daughter No problems noted. Son No problems noted. Mother Diabetes mellitus Congestive heart failure Father Diabetes mellitus Social History household members: children Tobacco & Substance Use Smoking Status: Never smoker alcohol intake: current Assessment & Plan Assessment and plan (1) Bilateral cellulitis of lower leg: Status: Acute (2) Bilateral lower extremity edema: Status: Acute Assessment & Plan narrative: Patient has cellulitis of both lower extremities in setting of lymphedema and chronic venous insufficiency. No open wounds or active drainage were identified. No specific wound care is necessary at this time however would recommend tubular compression to help control swelling. Follow up at the wound center as needed. Time Spent With Patient Time with patient: 30 to 49 minutes with 50% spent counseling/coordinating care
[2022-09-14] MEDS: VANCOMYCIN 1,750 MG in SODIUM CHLORIDE 0.9% 500 ML 250 MG IV (19:59)
[2022-09-14] MEDS: ACETAMINOPHEN 325 MG TABLET 650 MG PO (20:04)
[2022-09-15 03:02] LABS: x Labcorp Estim. Avg Glu (eAG) 128 mg/dL (.); x Labcorp Hemoglobin A1c 6.1 % (4.8-5.6)
[2022-09-15] MEDS: NYSTATIN POWDER 15GM 1 APPLIC TOP (04:05)
[2022-09-15] MEDS: diphenhydrAMINE 25 MG TABLET PO (06:10)
[2022-09-15 06:14] VITALS: BP 150/63; PULSE 77; RESP 17; TEMP 35.9; O2SAT 97
[2022-09-15 06:50] LABS: Add Manual Diff / Slide Review NO; Basophils Absolute Auto 0 /uL (0-100); Basophils Percent Auto 0.7 % (0-2); Eosinophils Absolute Auto 300 /uL (0-450); Eosinophils Percent Auto 4.4 % (2-4); Hematocrit 30.2 % (36-46); Hemoglobin 9.7 g/dL (12.0-16.0); Lymphocytes Absolute Auto 1100 /uL (1100-4500); Lymphocytes Percent Auto 16.5 % (25-40); Mean Corpuscular HGB Conc 32.2 % (30-36); Mean Corpuscular Hemoglobin 25.7 PG (26-34); Mean Corpuscular Volume 79.9 fL (80-100); Monocytes Absolute Auto 300 /uL (0-900); Monocytes Percent Auto 3.9 % (3-14); Neutrophils Absolute Auto 5100 /uL (1500-7000); Neutrophils Percent Auto 74.5 % (50-75); Platelet Count 314 X10^3/uL (150-400); Red Blood Cell Count 3.78 X10^6/uL (4.0-5.2); Red Cell Distribution Width 16.4 % (11.6-14.8); White Blood Cell Count 6.9 X10^3/uL (4.5-11.0)
[2022-09-15 07:00] VITALS: O2SAT 97
[2022-09-15 07:15] VITALS: O2SAT 97
[2022-09-15 07:32] LABS: BUN Creatinine Ratio 22.2 (6-22); Blood Urea Nitrogen 16 mg/dL (7-17); Carbon Dioxide 30 mmol/L (22-32); Chloride 104 mmol/L (98-107); Estimated Glomerular Filt Rate > 60 mL/min (>60); Glucose 115 mg/dL (80-110); HEMOLYSIS < 15 (0-50); Potassium 4.1 mmol/L (3.4-5.1); Sodium 140 mmol/L (137-145)
--- NOTE | 2022-09-15 07:47 | CM.DPC ---
Addendum entered by Rosemarie Silva R.N. 09/15/22 11:53: Had received confirmation from [facility], they were working on getting a truck driver rubbish collector. Leann then called back from [facility] and stated that they would go ahead and send their truck driver rubbish collector, Fatuma, to chart picker the patient at 1300 as originally planned. Called back [facility], spoke to Lucas, and cancelled their truck driver rubbish collector. Addendum entered by Rosemarie Silva R.N. 09/15/22 11:02: Leann at [facility] called back to see if her Medicaid transport can be used. Let her know that this [place] [employer] will call Medicaid transport to see if she has the benefit. Asked her to keep 1300 time for them as back up. This [place] [employer] did speak to [facility], confirmed that she does have transportation benefit. Faxed over the form, awaiting a call back for time, and to ensure that this can be done today. As soon as they call, will see if they can transport, if so, will update Leann at [facility]. Addendum entered by Rosemarie Silva R.N. 09/15/22 10:36: Spoke to Leann at [facility], confirmed acceptance for today, they did receive insurance auth. Updated hospitalist, and confirmed that she can go on oral antibiotics. Patient is happy that she can go to [facility]. Dr. Dhaliwal completed orders, faxed prescriptions, PASSR, and DC Summary to [facility], COVID test not needed per teir protocol. They have arranged chart picker time for 1300 today. Updated white board at main nurses station, and nurse, Raegan, is updated, gave her the main number for [facility] for report. Addendum entered by Rosemarie Silva R.N. 09/15/22 09:05: Leann at [facility] called back, can take patient today, they did get auth. Left a note for hospitalist to see if she is ready for today. Let Leann know that this [place] [employer] will update her. Original Note: DCP Cont: Faxed over wound care note from wound care provider, to [facility]. Will be calling the facility today to follow up to see if they can accept patient. P:DCP to continue to follow, will work on skilled facility. If unable to get patient into a skilled facility, most likely will need to go home with home health, and can also attempt to set her up at wound clinic next door. This will also depend upon if she needs b operator IV ABO. Rosemarie Silva RN/Medical Researcher
[2022-09-15] MEDS: GABAPENTIN 300 MG CAPSULE PO (09:05)
[2022-09-15 09:06] VITALS: BP 150/63; PULSE 77
[2022-09-15] MEDS: POTASSIUM CHLORIDE 10 MEQ TAB PO (09:06)
[2022-09-15] MEDS: carvediloL 12.5 MG TABLET 25 MG PO (09:06)
[2022-09-15 09:07] VITALS: BP 150/63; PULSE 77
[2022-09-15] MEDS: AMLODIPINE 5 MG TABLET 10 MG PO (09:07)
[2022-09-15] MEDS: LOSARTAN 50 MG TABLET 100 MG PO (09:07)
[2022-09-15] MEDS: levETIRAcetam 250 MG TABLET 750 MG PO (09:07)
[2022-09-15] MEDS: ENOXAPARIN 40 MG/0.4 ML SYRINGE SUBCUT (09:08)
--- NOTE | 2022-09-15 09:43 | OT.IP.TRT ---
Current Diagnoses Cellulitis of right lower limb (09/13/22) Cellulitis of left lower limb (09/13/22) Localized edema (09/13/22) Occupational Therapy Treatment Note M2 OT-IP Current Condition Start: 09/14/22 12:39 Freq: Status: Active Protocol: Document 09/14/22 11:45 [facility] (Rec: 09/14/22 12:57 [facility] [id number]) Occupational Therapy Current Condition Current Condition Evaluation Date 09/14/22 Treatment Diagnosis Bilateral LE cellulitis Diagnosis Onset Date 09/13/22 M3 OT- IP Subjective and Pain Start: 09/14/22 12:39 Freq: Status: Active Protocol: Document 09/15/22 09:25 [facility] (Rec: 09/15/22 10:27 [facility] [id number]) OT- Subjective Occupational Therapy Visit Type Type Treatment Note Visit Start Time 09:25 Visit Stop Time 09:43 Total Visit Minutes 18 Occupational Therapy Visit Comments Patient Comments Pt agreed to get up to brush her teeth. Patient/Caregiver Goals To go to skilled rehab. OT Pain Assessment Pain When Pain Assessed At Rest Pain Present Pain Present Denied Pain M4 OT- IP ADL's Start: 09/14/22 12:39 Freq: Status: Active Protocol: Document 09/15/22 09:25 [facility] (Rec: 09/15/22 10:27 [facility] [id number]) OT ADL-Grooming General Evaluation Grooming Ability Independent Comments OT Grooming Comments Able to do while standing at the sink with the FWW. OT ADL-Oral Care General Eval Oral Care Ability Independent Comments Oral Care Comments Able to do while standing at the sink. OT ADL-Dressing Comments OT Dressing Comments Not performed. OT ADL-Toileting Comments OT Toileting Comments Pt just used the toilet prior with nursing. Having to assist pt to wipe for completeness and noted pad on the recliner was a little soiled. Pt states has a portable bidet at home that she uses but that her daughter insists that she assists the pt instead. Suggested for pt to use the bidet and have her daughter assist for completeness. M5 OT- IP IADL's Start: 09/14/22 12:39 Freq: Status: Active Protocol: Document 09/14/22 11:45 [facility] (Rec: 09/14/22 12:57 [facility] [id number]) OT-Instrumental Activities of Daily Living Deficits IADL Deficits Identified Deficits Home Safety Awareness Awareness of Need for Assistance at Home Good Awareness Medication Management Medication Management Caregiver Administers Money Management Money Management Caregiver Provides Assistance Meal Preparation Meal Preparation Caregiver Provides Assist Bag Sorter Bag Sorter Caregiver Provides Assist M6 OT- IP Functional Cognition Start: 09/14/22 12:39 Freq: Status: Active Protocol: Document 09/15/22 09:25 [facility] (Rec: 09/15/22 10:27 [facility] [id number]) Cognitive Factors Limiting Selfcare Function Cognitive Comments Cognitive Assessment Comments Pt very motivated to get better and doing well today. M7 OT- IP Mobility and Balance Start: 09/14/22 12:39 Freq: Status: Active Protocol: Document 09/15/22 09:25 [facility] (Rec: 09/15/22 10:27 [facility] [id number]) OT-Transfer Assessment Sit to and From Stand Sit to and from Stand Standby Assistance Transfers Transfer Ability Standby Assistance Technique Transfer Destination Chair Transfer Technique Stand Step Pivot Devices Transfer Assistive Devices Gait Belt,Front Wheeled Walker Comments Mobility Comments Pt able to get up from the recliner with close SBA and walk to the sink with FWW O2 on 2L at 100% and after completing oral care needs and hygiene feeling dizzy and dropped to 95% OT- Balance Assessment Sitting Balance and Reactions Static Sitting Balance Ability Good Dynamic Sitting Balance Ability Good Standing Balance and Reactions Static Standing Balance Ability Good Dynamic Standing Balance Ability Good M9 OT- IP Assessment and Plan Start: 09/14/22 12:39 Freq: Status: Active Protocol: Document 09/15/22 09:25 [facility] (Rec: 09/15/22 10:27 [facility] [id number]) OT Summary Assessment and Plan Potential Rehabilitation Potential Good Analytic Complexity at Evaluation Moderate Summary OT Impairments Pain,Strength,Balance, Functional Mobility,Self- Feeding,Grooming,Dressing, Toileting,Bathing,Toilet Transfers,Shower Transfers, Activity Tolerance Progress Towards Goals Slow Progress due to Pain,Slow Progress due to Medical Issues,Slow Progress due to Activity Tolerance Assessment Summary Pt able to do oral care needs while at the sink. Pt going to skilled rehab today and very motivated to get better. Goals Self-Feeding Goal Independent Grooming Goal Independent Dressing Goal Independent Toileting Goal Independent Bathing Goal Standby Assistance Toilet Transfer Goal Independent Shower Transfer Goal Independent Patient/Caregiver Education Goal Demonstrate Energy Conservation and Pacing Days to Meet Goals 9 Frequency of Treatment Frequency Of Treatment Once a Day Treatment Plan OT Treatment Plan ADL Training,Functional Mobility,Patient/Family Education,Discharge Planning Discharge Recommendations OT Discharge Recommendations SNF Rehab Transportation Needs at Discharge Private Vehicle,Wheelchair/ Cabulance
--- NOTE | 2022-09-15 09:43 | PM.DS.1 ---
History of Present Illness History of Present Illness Date Patient Seen: 09/13/22 Time Patient Seen: 20:49 Chief complaint: Bilateral Lower ext cellulitus Narrative: Rocío Christinais a 61-year-old female with PMH significant for chronic respiratory failure w/ hypoxia and O2 dependence (2L at baseline), COPD, HTN, HFpEF, iron-deficiency anemia, morbid obesity class3, recurrent UTIs, T6 osteomyelitis, chronic bilateral lower extremity edema, venous stasis,& cellulitis, IDDM, and meningioma with left temporal lobe craniotomy.? Patient presented to the ED for increased bilateral lower extremity swelling and oozing discharge, with chills x3 days sent over by her PCP Dr. Lin for IV antibiotics. Patient was previously admitted 07/02-07/06/2022-completed Oral Cipro 07/09, d/c to SNF x1 month, been at home where she lives alone x1 month. D/C 07/09/[address] Dhaliwal:Sepsis w/shock, urinary tract infection/buttock cellulitis, metabolic encephalopathy. Initially admitted to acute care but rapidly developed septic shock transferred to ICU for pressors. Antibiotics cefepime and vancomycin. changed to IV cipro:Urine culture- E.coli , Buttock wound culture MRSA and pseudomonas, po cipro on discharge completed 07/09. Imaging studies were challenging as patient had previously extensive hardware placement secondary to spine surgery which affected the quality of imaging. 07/02/2022: BNP 758, BUN 7, 07/06/2022 H&H 8.4/26.9. On admit patient denies chest pain, shortness in breath, headache, changes in vision, difficulty swallowing, speech impairment, numbness, tingling, difficulty with ambulation, recent falls, head injury, LOC, fever, body aches, cough, abdominal pain, nausea, vomiting, urinary incontinence/retention, dysuria, frequency, urgency, hematuria, bowel changes, constipation, incontinence, melena, recent injury, or trauma. On admit patient is resting comfortably in bed pain is controlled, chills have resolved. Temp 98?, BP 120/49, 84, 16, 98% on 2 L, H&H 10.4/32.6, no white count neutrophils mildly elevated 8700, BUN 26, glucose 138. GFR, creatinine, lactate, troponin, procalcitonin, chest x-ray are all WNL. BNP 174 previous 758, EKG I personally reviewed sinus rhythm with a rate of [address] or T-wave changes and unchanged from 07/02 EKG. Patient admitted for bilateral lower extremity cellulitis. Discharge Providers Provider Date of admission: 09/13/22 17:27 Discharge Date: 09/15/22 Primary care physician: Nato Lin MD Consults: 09/13/22 17:35 Consult to Occupational Therapy Evaluate & Treat Comment: Physician Instructions: Evaluate and treat Consult to Physical Therapy Evaluate & Treat Comment: Physician Instructions: Evaluate and Treat 09/14/22 02:19 Consult to PC MAINTENANCE TECHNICIAN - Major Assembly Lineman Routine Comment: SNF placement PC MAINTENANCE TECHNICIAN Consult needed for:: [facility] Res Need 09/14/22 10:30 Consult to Wound Care Routine Comment: Consulting Provider: [facility] Discharge provider: Roel Dhaliwal DO Summary Hospital Course Discharge Diagnosis: Acute on chronic bilateral lower extremity cellulitis, with chronic venous stasis, present on admission -patient's bilateral lower extremity cellulitis edema looks improved from last admit. Due to patient morbid obesity, inability to manage health at home, with chronic infections recommend SNF placement on d/c. -PC MAINTENANCE TECHNICIAN consult placed -admitted 07/02-07/06/2022-urinary tract infection/buttock cellulitis -Urine culture E.coli, wound culture MRSA and pseudomonas changed to cipro. -patient given Rocephin 2 g and vanco in ED, continue on broad-spectrum coverage cefepime and vanco -ESR mildly up at 24, CRP 6.8, blood/urine cultures negative -MRSA nasal swab positive -patient has no white count, vitals are stable though BP remains soft, WBC, lactate, & procalcitonin are all WNL -dc on 1 week of po levaquin and doxy -wound care consulted and recommended tubular compression stockings and f/u in wound care clinic, rec apply eucerin cream to bilateral legs and wrap with gauze Essential hypertension, chronic, present on admission Antihypertensive medications have been held in the setting of soft blood pressures 126/67, 120/49- ED 149/63, baseline [id number] -due to patient's current soft B/P held Lasix, amlodipine, famotidine, hydroxyzine, losartan, carvedilol ?HFpEF and pulmonary HTN, unknown if systolic or diastolic, chronic, present on admission -based on BNP and physical exam patient does not show s/s of HF exacerbation -Echo 07/04 with EF 60-65% and RVSP of 52. w/trace pericardial effusion -holding coreg -Lasix 20mg IV BID given then stopped due to soft BP -admit BNP 174, 07/02: BNP 758 -fluid restriction, daily weights, low-sodium ? Insulin-dependent diabetes, acute, present on admission -initial BS 138 -patient admitted under diabetic protocol, sliding scale for coverage(replacing patient's NovoLog) -hold metformin -A1c pending History of left temporal lobe craniotomy, due to meningioma, chronic, present on admission -continue Keppra (seizure prophylaxis s/p craniotomy) Chronic respiratory failure on 2 L/O2 at home secondary to COPD, chronic, present on admission -continue oxygen support, respiratory consult as needed -On admit: 98% on 2 L nasal cannula History of T6 osteomyelitis, chronic, present on admission -No present complaints of back pain.? low threshold for additional imaging if she begins complaining of localized back pain given the significant hardware in her spine. ?Morbid obesity severe, Class3, acute on chronic, present on admission -as evidence by BMI 48.6 up from 45.8 on last admit 07/02/2022 -dietary consult? on previous admit -the patient is at much higher risk for medical and surgical complications due to obesity as it relates to chronic illnesses COPD, hypertension, CHF, and acute on chronic cellulitis.? The patient's obesity increases the difficulty and complexity of medical and/or surgical interventions, management and increases the chances of poor outcome such as morbidity and mortality as well as impaired wound healing. Iron-deficiency anemia, chronic, present on admission -continue ferrous sulfate Hospital Course: Rocío Enriquez ?is a 61-year-old female with PMH significant for chronic respiratory failure w/ hypoxia and O2 dependence (2L at baseline), COPD, HTN, pulmonary HTN, HFpEF, iron-deficiency anemia, morbid obesity class 3, recurrent UTIs, T6 osteomyelitis, chronic bilateral lower extremity edema, venous stasis,and cellulitis, IDDM, and meningioma with left temporal lobe craniotomy.? Patient presented to the ED for increased bilateral lower extremity swelling and oozing discharge, with chills x3 days.? Patient was previously admitted 07/02-07/06/2022-Sepsis, secondary to urinary tract infection/buttock cellulitis? Patient was sent in by her PCP Dr. Lin for worsening bilateral lower extremity cellulitis requiring IV antibiotic treatment.? Patient to receive IV antibiotic treatment-pending cultures, and gentle diuresis for edema. Redness improved and dc to SNF on po levaquin for 1 week. Wound care saw and recommended compression stockings once cellulitis has healed. For now apply eucerin cream to bilateral legs and wrap with gauze. Time Spent with Patient Time spent: Greater than 30 minutes Exam Vital Signs (past 8 hours): - 09/15/22 06:14 09/15/22 07:15 09/15/22 09:06 Temperature 96.6 F L Pulse Rate 77 77 Respiratory Rate 17 Blood Pressure 150/63 H 150/63 H Pulse Oximetry 97 97 Oxygen Delivery Method Nasal Cannula Oxygen Flow Rate 3 2 Fraction of Inspired Oxygen 28 09/15/22 09:07 Temperature Pulse Rate 77 Respiratory Rate Blood Pressure 150/63 H Pulse Oximetry Oxygen Delivery Method Oxygen Flow Rate Fraction of Inspired Oxygen Fraction of Inspired Oxygen 28 SaO2/FiO2 Ratio 346 Oxygen Delivery Method Nasal Cannula Oxygen Flow Rate 2 Narrative Exam Narrative: General:? Patient is a mirella, excellent historian, morbidly obese female who appears older than stated age, and chronically ill appearing HEENT:? Normocephalic, atraumatic, extraocular muscles intact, oral pharynx is clear and mucous membranes are severely dry, lips are cracking.? Neck is supple and symmetric, trachea is midline, no adenopathy, no thyroid enlargement, nontender, no masses palpated.? Negative for JVD Chest:? Breathing without nasal flaring, retractions, mildly labored and tachypneic,? chronic respiratory failure on 2 L nasal cannula Lungs:? Auscultation of all lung ramirez poor air exchange, shallow breathing, occasional crackles noted in bilateral bases. Cardio:? Bradycardic regular rate and rhythm without murmur, rubs, or gallops, no carotid bruit, no cardiac pulsations present. Abdomen:? Soft nontender, negative for organomegaly, or masses.? Bowel sounds hypoactive are present in all 4 quadrants without guarding or rebound, no CVA tenderness. Musculoskeletal:? Muscle strength and tone equal but decreased noted deconditioning, muscle wasting, no deformity, crepitus, effusions, cyanosis, clubbing, noted bilateral lower extremity chronic venous stasis/cellulitis weeping, cracking with scaling, erythemic, 2+edema tracking upwards towards abdomen, radial and pedal pulses are normal, difficult to palpate dorsalis pedis pulses, cap refill less than 2 seconds in all 5 toes. Skin:? Warm and poor skin turgor, fungal erythematous areas bilateral axilla, abdominal fold, bilateral groin,?vaginal, some breakdown of the top layer of skin and erythema of the buttocks and sacrum but does not appear to be full thickness. Neuro:? Alert and orientated x3, significant difficulty and pain? moving all extremities, sensation to touch intact, no gross deficits noted of cranial nerves. Psych:? Patient has appropriate affect, mental status attitude thought context and judgment are appropriate for age. Objective Labs 09/15/22 06:39 09/15/22 06:39 Labs: Laboratory Results - last 24 hr 09/13/22 09/13/22 09/15/22 16:03 17:49 06:39 WBC 6.9 RBC 3.78 L Hgb 9.7 L Hct 30.2 L MCV 79.9 L MCH 25.7 L MCHC 32.2 RDW 16.4 H Plt Count 314 Neut % (Auto) 74.5 Lymph % (Auto) 16.5 L Briscoe % (Auto) 3.9 Eos % (Auto) 4.4 H Baso % (Auto) 0.7 Neut # (Auto) 5100 Lymph # (Auto) 1100 Briscoe # (Auto) 300 Eos # (Auto) 300 Baso # (Auto) 0 Sodium Potassium Chloride Carbon Dioxide BUN Creatinine Estimated GFR BUN/Creatinine Ratio Glucose Hgb A1c (Ref Lab) 6.1 H Estim Average Glucose 128 Calcium A.calcoaceticus-baumannii cmplx PCR Not detected Bacteroides fragilis Not detected Alexandra albicans (PCR) Not detected Alexandra auris (PCR) Not detected C. glabrata (PCR) Not detected C. krusei (PCR) Not detected C. parapsilosis (PCR) Not detected C. tropicalis (PCR) Not detected C. neoform/gattii (PCR) Not detected Enterobacterales (PCR) Not detected E. cloacae complex PCR Not detected Enterococc faecalis PCR Not detected Enterococc faecium PCR Not detected E. coli (PCR) Not detected H. influenzae (PCR) Not detected Klebsiella aerogenes (PCR) Not detected Klebsiella oxytoca PCR Not detected Klebsiella pneumoniae Not detected List. monocytogenes PCR Not detected N. meningitidis (PCR) Not detected Proteus species (PCR) Not detected Salmonella spp. (PCR) Not detected Serratia marcescens PCR Not detected Staphylococcus sp PCR Detected H Staph aureus (PCR) Not detected Staph epidermidis (PCR) Not detected Staph lugdunensis PCR Not detected S. maltophilia (PCR) Not detected Streptococcus sp PCR Not detected Group A Strep (PCR) Not detected Strep agalactiae (PCR) Not detected Strep pneumoniae (PCR) Not detected P. aeruginosa (PCR) Not detected 09/15/22 06:39 WBC RBC Hgb Hct MCV MCH MCHC RDW Plt Count Neut % (Auto) Lymph % (Auto) Briscoe % (Auto) Eos % (Auto) Baso % (Auto) Neut # (Auto) Lymph # (Auto) Briscoe # (Auto) Eos # (Auto) Baso # (Auto) Sodium 140 Potassium 4.1 Chloride 104 Carbon Dioxide 30 BUN 16 Creatinine 0.72 Estimated GFR > 60 BUN/Creatinine Ratio 22.2 H Glucose 115 H Hgb A1c (Ref Lab) Estim Average Glucose Calcium 9.0 A.calcoaceticus-baumannii cmplx PCR Bacteroides fragilis Alexandra albicans (PCR) Alexandra auris (PCR) C. glabrata (PCR) C. krusei (PCR) C. parapsilosis (PCR) C. tropicalis (PCR) C. neoform/gattii (PCR) Enterobacterales (PCR) E. cloacae complex PCR Enterococc faecalis PCR Enterococc faecium PCR E. coli (PCR) H. influenzae (PCR) Klebsiella aerogenes (PCR) Klebsiella oxytoca PCR Klebsiella pneumoniae List. monocytogenes PCR N. meningitidis (PCR) Proteus species (PCR) Salmonella spp. (PCR) Serratia marcescens PCR Staphylococcus sp PCR Staph aureus (PCR) Staph epidermidis (PCR) Staph lugdunensis PCR S. maltophilia (PCR) Streptococcus sp PCR Group A Strep (PCR) Strep agalactiae (PCR) Strep pneumoniae (PCR) P. aeruginosa (PCR) PFSH Medical History Bilateral lower extremity edema Chronic respiratory failure COPD (chronic obstructive pulmonary disease) Diabetes History of cellulitis History of congestive heart failure Hypertension Hypoxia Meningioma Morbidly obese Personal history of osteomyelitis Surgical History History of craniotomy Status post appendectomy Status post cholecystectomy Family History Daughter No problems noted. Son No problems noted. Mother Diabetes mellitus Congestive heart failure Father Diabetes mellitus Social History household members: children Smoking Status: Never smoker alcohol intake: current Discharge Plan Discharge Plan Patient Disposition: SNF Discharge orders & Medications Prescriptions: New levofloxacin 750 mg tablet 750 mg PO DAILY 7 Days Qty: 7 0RF Continued carvedilol 25 mg Tablet 25 mg PO BID potassium chloride 10 mEq tablet,ER particles/crystals 10 meq PO BID nystatin [Nystop] 100,000 unit/gram Powder 1 applic topical TID PRN (Reason: Rash) Qty: 15 0RF oxycodone 5 mg Tablet 2.5 - 5 mg PO Q6H PRN (Reason: Pain (Scale Score 7-10)) Qty: 30 0RF metformin 500 mg tablet 500 mg PO QAM insulin lispro 100 unit/mL solution 10 units subcut 3-4XD PRN (Reason: Hyperglycemia) gabapentin 300 mg capsule 300 mg PO TID losartan 100 mg tablet 100 mg PO QAM amlodipine 10 mg tablet 10 mg PO QAM levetiracetam 750 mg Tablet 750 mg PO BID ferrous sulfate 324 mg (65 mg iron) Tablet,Delayed Release (Dr/Ec) 324 mg PO QAM furosemide 20 mg Tablet 40 mg PO QAM PRN (Reason: Edema) acetaminophen 325 mg Capsule 650 mg PO Q4H PRN (Reason: Pain, Moderate) (DME) oxygen-air delivery systems Device MISCELLANEOUS Rx Instructions: 2L NC oxygen Follow up/Referrals: Nato Lin MD [Primary Care Provider] - 2 Weeks Visit Report/Discharge Packet Stand Alone Forms: Patient Portal/API Discharge Data Primary Care Provider: Nato Lin Quality VTE Deep Vein Thrombosis/Pulmonary Embolism Present on Admission: No
[2022-09-15] MEDS: CEFEPIME 2 GM in SODIUM CHLORIDE 0.9% 100 ML IV (10:55)
--- NOTE | 2022-09-15 11:02 | PT.IPTN ---
Current Diagnoses Cellulitis of right lower limb (09/13/22) Cellulitis of left lower limb (09/13/22) Localized edema (09/13/22) Physical Therapy Treatment Note M2 PT-IP Current Condition Start: 09/14/22 08:56 Freq: NEEDED Status: Active Protocol: Document 09/14/22 12:21 ES (Rec: 09/14/22 12:43 ES [id number]) Physical Therapy Current Condition Current Condition Evaluation Date 09/14/22 Treatment Diagnosis BLE cellulitis, weakness Onset Date 09/13/22 M3 PT-IP Subjective Start: 09/14/22 08:56 Freq: NEEDED Status: Active Protocol: Document 09/15/22 11:02 DLM (Rec: 09/15/22 11:17 DLM [id number]) Subjective Physical Therapy Visit Type Type Treatment Note Visit Start Time 10:20 Visit Stop Time 11:02 Total Visit Minutes 42 Number of DELI COOK Visits 0 Physical Therapy Visit Comments Patient Comments Her legs feel better after having cream applied to the cracked skin. Having left knee pain with activity today but typically her right hip and knee are worse than left side Patient Goals get stronger and have her legs feel better Therapy Pain Assessment Pain When Pain Assessed During Mobility Pain Present Pain Present Pain Reported Location Bilateral Lower Leg Intensity 5 Scale Used Numeric (0 - 10) Description Aching Pain Management Techniques Modification of Treatment,Re- positioning M4 PT-IP Mobility and Gait Start: 09/14/22 08:56 Freq: NEEDED Status: Active Protocol: Document 09/15/22 11:02 DLM (Rec: 09/15/22 11:17 DLM [id number]) PT-Transfer Assessment Sit to and From Stand Sit to and from Stand Standby Assistance,Use of Upper Extremities Equipment Transfer Assistive Device Gait Belt,Front Wheeled Walker Transfers Transfer Destination Chair Transfer Technique Stand Step Pivot Transfer Ability Level of Assist Contact Guard Assistance,Use of Upper Extremities Comments Mobility Comments Pt is sitting up in recliner and wants to stay up today. Gait Assessment Gait Gait Assistance Required: Contact Guard Assist Distance (Feet) 40 Assistive Devices Assistive Device Gait Belt,Front Wheeled Walker Gait Deviations General Gait Pattern Decreased Stride Length, Decreased Feet Clearance,Wide Based Gait Factors Limiting Gait Function Factors Limiting Gait Function Decreased Activity Tolerance, Decreased Strength,Pain, Respiratory Distress Comments Gait Comments She ambulated 3 x 30 feet in the room with assistance also for her oxygen. She needs seated rest breaks to manage her fatigue and left knee pain . She gets short of breath during gait but recovers well with seated rest breaks. Her last gait trial was only 10 feet due to increased fatigue after her exercises. Pt left sitting up in the recliner with her feet elevated at the end of this visit with needs close. PT-Balance Assessment Sitting Balance and Reactions Static Sitting Balance Ability Good Dynamic Sitting Balance Ability Good Standing Balance and Reactions Static Standing Balance Ability Good Dynamic Standing Balance Ability Fair Device Used FWW Comments Other Balance Tests/Deviations/Treatment she becomes less stable on her : feet as her LE pain increases and she becomes more fatigued M5 PT-IP Objective Assessments Start: 09/14/22 08:56 Freq: NEEDED Status: Active Protocol: Document 09/14/22 12:21 ES (Rec: 09/14/22 12:43 ES [id number]) Orientation Orientation/Cognition Level of Alertness Alert Orientation Name,Age,Birthday,Month,Date, Year,Day of Week,Place, Situation Language Function Ability No Deficits Noted Safety Awareness Understands Safety Issues Memory Description No Deficits Noted Gross Range of Motion Upper Extremity ROM Assessment Within Functional Limits Lower Extremity ROM Assessment Bilaterally Impaired Impairments Limited hip motion due to body habitus. Strength Upper Extremity Strength Assessment Within Functional Limits Lower Extremity Strength Assessment Bilaterally Impaired Comments Strength Comments BLE's grossly 4/5. Unable to perform sit to stand without use of UE's from standard chair height. Coordination Assessment Gross Coordination Gross Coordination WNL Muscle Tone Muscle Tone WNL Yes M6 PT-IP Treatment Start: 09/14/22 08:56 Freq: NEEDED Status: Active Protocol: Document 09/15/22 11:02 DLM (Rec: 09/15/22 11:17 DL [id number]) Physical Therapy Treatment Exercises Exercises Ankle Pumps,Seated Knee Flexion/Extension,Shoulder Flexion Education Education Provided Safety Other Treatments Other Treatment Performed 5 x sit to stand as an exercise with UE support from recliner x 2 reps. M7 PT-IP Assessment and Plan Start: 09/14/22 08:56 Freq: NEEDED Status: Active Protocol: Document 09/15/22 11:02 DLM (Rec: 09/15/22 11:17 DL [id number]) PT Summary Assessment and Plan Summary Impairments ROM,Strength,Bed Mobility, Transfers,Gait,Activity Tolerance Progress Towards Goals Slow Progress due to Activity Tolerance Assessment Summary Rocío is alert and sitting up today. She gets fatigued and short of breath with light activity and needs seated rest breaks to manage her symptoms. Her left knee pain was more severe during gait this visit but right hip and knee pain limited her exercises more. She is motivated to work with therapy and increase her functional independence and activity tolerance. Her distal LE pain is better when pillows are used under her LE's elevated in the recliner. Continue to recommend SNF rehab at discharge. Goals Bed Mobility Goal Independent Transfer Goal Independent,Four Wheeled Walker Gait Goal Independent,Four Wheel Walker Gait Distance 60 ft with seated rest Other Goals Patient will be able to ascend /descend 1 step with 4WW and SBA to get in/out of her home. Days to Meet Goals 7 Frequency of Treatment Frequency Of Treatment Once a Day Treatment Plan Physical Therapy Treatment Plan Bed Mobility Training,Transfer Training,Gait Training, Therapeutic Exercise,Discharge Planning Precautions Other Precautions Fall risk contant supplemental oxygen needed Recommendations To Nursing Amount of Assist Needed 1 Person Assist Discharge Recommendations PT Discharge Recommendations SNF Rehab Transportation Needs at Discharge Private Vehicle,Wheelchair/ Cabulance
[2022-09-15 12:44] VITALS: BP 132/60; PULSE 71; RESP 18; TEMP 35.7; O2SAT 97
--- NOTE | 2022-09-15 14:35 | PC.NURSE ---
Pt is A&OX4, VSS, afebrile on 2LNC. Pt is able to eat breakfast and ambulate with assistance to BR this a.m. 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 No weeping observed. She is cleared for discharge to SNF this a.m. She verbalizes understanding and agreement with discharge plan. Report called to Dorothy at [facility] and patient is transported by facility designee via w/ at approximately 1310 this afternoon.
== END 2022-09-15 13:15 | DRG 603 ==
LOC: ED 17:27 → AC 17:28
PROVIDERS: Nurse Practitioner Family; Admitting Provider Student in an Organized Health Care Education/Training Program; Emergency Provider Emergency Medicine; PCP Family Medicine; Referring Provider Emergency Medicine; Visit Provider Student in an Organized Health Care Education/Training Program
DX: L03.116 Cellulitis of left lower limb (principal); Z68.41 Body mass index [BMI] 40.0-44.9, adult; J96.10 Chronic respiratory failure, unspecified whether with hypoxia or hypercapnia; L03.115 Cellulitis of right lower limb; E66.01 Morbid (severe) obesity due to excess calories; I87.8 Other specified disorders of veins; I27.20 Pulmonary hypertension, unspecified; E11.9 Type 2 diabetes mellitus without complications; J44.9 Chronic obstructive pulmonary disease, unspecified; D50.9 Iron deficiency anemia, unspecified; I11.0 Hypertensive heart disease with heart failure; I50.9 Heart failure, unspecified; Z98.890 Other specified postprocedural states; Z79.4 Long term (current) use of insulin; Z79.84 Long term (current) use of oral hypoglycemic drugs; Z99.81 Dependence on supplemental oxygen; Z20.822 Contact with and (suspected) exposure to COVID-19; Z86.011 Personal history of benign neoplasm of the brain
CPT/HCPCS: 36415; 71045; 80048; 80053; 82550; 82962; 83036; 83605; 83690; 83735; 83880; 84145; 84484; 85025; 85610; 85651; 85730; 86140; 87040; 87070; 87075; 87077; 87086; 87147; 87154; 87186; 87205; 87635; 87797; 93005; 93010; 94760; 96365; 96375; 97110; 97116; 97161; 97166; 97530; 99284; C9803; J0692; J0696; J1650; J1940

== ENCOUNTER 2023-08-06 12:58 | Emergency (ER) | payer MEDICARE, MEDICAID, SELFPAY ==
[2022-09-14 04:35] VITALS: BMI 48.6
[2023-08-06] VITALS (25 sets, daily range): BP systolic 120–182; BP diastolic 58–102; PULSE 18–119; RESP 12–32; TEMP 36.7; O2SAT 81–99; BMI 52.4
--- NOTE | 2023-08-06 13:15 | DI.RAD.S_ITS ---
PROCEDURE: XR CHEST 1V INDICATIONS: Shortness of breath TECHNIQUE: One view of the chest was acquired. COMPARISON: [facility], CR, XR CHEST 1V, 09/13/2022, 15:56. FINDINGS: Surgical changes and devices: Stable appearance of long segment thoracic spine surgical fusion. Interbody cage projects over the midthoracic spine. Lungs and pleura: Diffuse interstitial prominence. Loss of vascular distinctness. Patchy ill-defined airspace opacities bilaterally. Small bilateral pleural effusions. Mediastinum: Mediastinal contours appear normal. Heart size is enlarged. Bones and chest wall: No suspicious bony lesions. Overlying soft tissues appear unremarkable. IMPRESSION: Cardiomegaly with findings suggestive of pulmonary edema/CHF. Concurrent infectious or inflammatory process not excluded if clinically appropriate. Dictated by: Johan Calloway M.D. on 08/06/2023 at 14:00 Approved by: Johan Calloway M.D. on 08/06/2023 at 14:02
[2023-08-06] MEDS: ALBUTEROL/IPRATROPIUM 3 ML AMPUL INH (13:22)
[2023-08-06 13:33] LABS: Add Manual Diff / Slide Review NO; Basophils Absolute Auto 100 /uL (0-100); Basophils Percent Auto 0.8 % (0-2); Eosinophils Absolute Auto 300 /uL (0-450); Eosinophils Percent Auto 2.1 % (2-4); Hematocrit 32.1 % (36-46); Hemoglobin 9.9 g/dL (12.0-16.0); Lymphocytes Absolute Auto 1600 /uL (1100-4500); Lymphocytes Percent Auto 12.1 % (25-40); Mean Corpuscular Hemoglobin 24.9 PG (26-34); Mean Corpuscular Volume 80.3 fL (80-100); Monocytes Absolute Auto 600 /uL (0-900); Monocytes Percent Auto 4.8 % (3-14); Neutrophils Absolute Auto 10500 /uL (1500-7000); Neutrophils Percent Auto 80.2 % (50-75); Platelet Count 279 X10^3/uL (150-400); Red Blood Cell Count 3.99 X10^6/uL (4.0-5.2); White Blood Cell Count 13.1 X10^3/uL (4.5-11.0)
[2023-08-06 13:39] LABS: INR 1.1 (0.9-1.3); Prothrombin Time 12.5 SECONDS (9.4-12.5)
[2023-08-06 13:42] LABS: Lactate (Lactic Acid) 1.3 mmol/L (0.7-2.1)
[2023-08-06 13:43] LABS: Alanine Aminotransferase 20 IU/L (<35); Albumin 3.9 g/dL (3.5-5.0); Albumin Globulin Ratio 0.9 (1.0-2.8); Alkaline Phosphatase 93 U/L (38-126); Aspartate Aminotransferase 21 IU/L (14-36); BUN Creatinine Ratio 24.7 (6-22); Bilirubin Total 0.6 mg/dL (0.2-1.3); Blood Urea Nitrogen 21 mg/dL (7-17); Calcium 9.7 mg/dL (8.4-10.2); Carbon Dioxide 38 mmol/L (22-32); Chloride 100 mmol/L (98-107); Estimated Glomerular Filt Rate > 60 mL/min (>60); Globulin 4.2 g/dL (1.7-4.1); Glucose 175 mg/dL (80-110); HEMOLYSIS 38 (0-50); Potassium 4.6 mmol/L (3.4-5.1); Sodium 140 mmol/L (137-145); Total Protein 8.1 g/dL (6.3-8.2)
--- NOTE | 2023-08-06 13:48 | PC.NURSE ---
Pt came to ED today because she has been feeling SOB for the last few days. Pt has hx of copd & chf. States that she uses 2L NC at home. Pt sitting up in bed and o2 sat 81% on 2L, increased o2 to 3L NC without change. Further increased o2 4L & sat now 96%. Pt states that she had previous UTI and thinks that it is back because she is having similar sx of frequent burning urination with a foul smell. Pt a&ox4.
[2023-08-06 13:54] LABS: NT-proBNP (BNP-Adult 18+) 454 pg/mL (<125); Troponin I < 0.012 ng/mL (0.01-0.034)
--- NOTE | 2023-08-06 14:01 | ED.SOB ---
HPI - SOB/Dyspnea General Chief Complaint: Shortness of Breath/Dyspnea Stated Complaint: per pt UTI, Hearing loss Time Seen by Provider: 08/06/23 13:16 Source: patient, RN notes reviewed and old records reviewed Mode of arrival: Ambulatory Limitations: no limitations History of Present Illness HPI Narrative: This is a 62-year-old female with history of COPD on home O2, diabetes, hypertension, congestive heart failure, prior meningioma with seizure disorder after removal, prior osteomyelitis of her back who presents with complaint of decreased hearing in her left ear. Patient also notes she has had a little bit of right-sided chest pain and urinary frequency. Patient denies any fevers or chills. She states she is some discomfort on her right side of her chest she states it feels like her lung hurts. States it has not on the left it does not radiate elsewhere. States that has been going on for the last day. She has had cough she describes it as nonproductive. She states she did take a home COVID test which was negative. Patient does feel little bit more short of breath she felt wheezy this morning but not prior to arrival. She had nebulized treatment here and states minimal change. She denies any nausea or vomiting. No diarrhea or constipation. No dysuria or urgency she does note frequency. 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 She has not had any pain in her ear, it does feel full. She has had prior meningioma resection, has also had back surgery in the past for osteomyelitis. States allergy to penicillin. No tobacco, alcohol or illicit drugs. Dr. Lin is her primary care physician. Related Data Home Medications Medication Instructions Recorded Confirmed carvedilol 25 mg tablet 25 mg PO BID 09/20/18 09/13/22 potassium chloride 10 mEq 10 meq PO BID 09/20/18 09/13/22 tablet,extended release(part/cryst) insulin lispro 100 unit/mL 10 units SUBCUT 3-4XD PRN 10/10/18 09/13/22 subcutaneous solution Hyperglycemia gabapentin 300 mg capsule 300 mg PO TID 04/07/20 09/13/22 losartan 100 mg tablet 100 mg PO QAM 04/07/20 09/13/22 acetaminophen 325 mg capsule 650 mg PO Q4H PRN Pain, Moderate 05/16/20 09/13/22 amlodipine 10 mg tablet 10 mg PO QAM 05/16/20 09/13/22 ferrous sulfate 324 mg (65 mg 324 mg PO QAM 05/16/20 09/13/22 iron) tablet,delayed release furosemide 20 mg tablet 40 mg PO QAM PRN Edema 05/16/20 09/13/22 levetiracetam 750 mg tablet 750 mg PO BID 05/16/20 09/13/22 oxygen-air delivery systems 05/16/20 09/14/22 metformin 500 mg PO QAM 09/13/22 09/13/22 Previous Rx's Medication Instructions Recorded nystatin 100,000 unit/gram topical 1 applic topical TID PRN Rash #15 07/06/22 powder (Nystop) grams oxycodone 5 mg tablet 2.5 - 5 mg (0.5 - 1 x 5 mg) PO Q6H 07/06/22 PRN Pain (Scale Score 7-10) #30 tabs doxycycline hyclate 100 mg tablet 100 mg PO BID #20 tabs 08/06/23 prednisone 10 mg tablets in a dose See Rx Instructions PO .COMPLEX 08/06/23 pack #21 ea Allergies Allergy/AdvReac Type Severity Reaction Status Date / Time naproxen Allergy Mild MADE MY Verified 09/13/22 15:53 FACE NUMB Penicillins Allergy Mild Rash Verified 09/13/22 17:36 meperidine Allergy Unknown Verified 09/13/22 15:53 Sulfa (Sulfonamide Allergy Unknown Verified 09/13/22 15:53 Antibiotics) diphenhydramine AdvReac Shakiness Verified 09/13/22 15:53 [From Benadryl] Review of Systems Review of Systems ROS Unobtainable: All systems reviewed & are unremarkable except as noted in HPI and below Patient History Medical History History of cellulitis Bilateral lower extremity edema Personal history of osteomyelitis Chronic respiratory failure History of congestive heart failure Hypoxia Meningioma Diabetes Morbidly obese COPD (chronic obstructive pulmonary disease) Hypertension Surgical History History of craniotomy Status post appendectomy Status post cholecystectomy Family History Daughter No problems noted. Son No problems noted. Mother Diabetes mellitus Congestive heart failure Father Diabetes mellitus Social History household members: children Smoking Status: Never smoker alcohol intake: current Smoking Status: Never smoker alcohol intake frequency: holidays/special occasions only Substance Use Type: does not use and marijuana Exam Narrative Exam Narrative: GEN: Obese female, alert and oriented x 3, patient appears to be in mild distress. HEENT: Atraumatic, pupils are equal round reactive to light, extraocular movements are intact, nares are clear, left TM is clear with no conjunctival pallor, right is not visualized there is dried cerumen that appears impacted, there is no swelling of the canal, patient is nontender with movement of the ear. There is no conjunctival pallor. Throat is clear without any exudates, erythema, tonsillar enlargement or uvular deviation HEART: Regular rate and rhythm without murmur, clicks, rubs. No edema bilateral lower extremities. LUNGS:Lungs clear to auscultation, no wheezes, rales, crackles, chest moves symmetrically, no tachypnea accessory muscle use. Exam is somewhat difficult secondary to body habitus. ABD:bowel sounds normal, soft, non-tender, no guarding, rebound, rigidity, no masses noted, no hepatosplenomegaly :No CVA tenderness MSCL: Non-tender, no muscle atrophy, muscles strength 5/5 upper and lower extremities, full range of motion NEURO:CN 2-12 intact, sensation normal Initial Vital Signs Initial Vital Signs: Vital Signs Temperature 98.0 F 08/06/23 13:11 Pulse Rate 69 08/06/23 13:11 Respiratory Rate 24 08/06/23 13:11 Blood Pressure 134/82 08/06/23 13:11 Pulse Oximetry 81 L 08/06/23 13:11 Oxygen Delivery Method Nasal Cannula 08/06/23 13:11 Oxygen Flow Rate 2 08/06/23 13:11 Course Orders Ordered: ED Orders 08/06/23 13:15 XR chest 1V Stat Measure peak expiratory flow ONCE RT Consult Eval and Treat NOW 08/06/23 13:16 EKG-12 Lead Stat 08/06/23 13:20 Respiratory Panel (Film Array) Stat 08/06/23 13:22 Complete Blood Count AUTO DIFF Stat Comprehensive Metabolic Panel Stat Lactate (Lactic Acid) Stat NT-proBNP (BNP-Adult 18+) Stat Prothrombin Time INR Stat Troponin I Stat 08/06/23 13:40 Urinalysis and Microscopic Stat 08/06/23 15:11 CT angio chest PE protocol Stat 08/06/23 15:34 Trop I [Troponin I] Stat Discontinued Medications Albuterol/Ipratropium (Albuterol/Ipratropium 3 Ml Ampul) 3 ml INH NOW ONE Stop: 08/06/23 13:18 Last Admin: 08/06/23 13:22 Dose: 3 ml Documented By: WINTER Carbamide Peroxide (Carbamide Peroxide Otic 15 Ml) 4 drops EAR-LEFT NOW ONE Stop: 08/06/23 15:10 Last Admin: 08/06/23 15:17 Dose: 4 drops Documented By: SAVAGE Doxycycline Hyclate (Doxycycline Hyclate 100 Mg Tablet) 100 mg PO NOW ONE Stop: 08/06/23 16:41 Last Admin: 08/06/23 16:52 Dose: 100 mg Documented By: RB Methylprednisolone (Methylprednisolone 125 Mg/2 Ml Vial) 125 mg IV NOW ONE Stop: 08/06/23 16:41 Last Admin: 08/06/23 16:52 Dose: 125 mg Documented By: RB Vital Signs Vital signs: Vital Signs - 8 hr 08/06/23 13:11 08/06/23 13:16 08/06/23 13:23 Temperature 98.0 F Pulse Rate 69 79 75 Respiratory Rate 24 21 24 Blood Pressure 134/82 Pulse Oximetry 81 L 95 94 Oxygen Delivery Method Nasal Cannula Nasal Cannula Room Air Oxygen Flow Rate 2 4 08/06/23 13:30 08/06/23 13:30 08/06/23 13:40 Temperature Pulse Rate 76 72 Respiratory Rate 24 14 Blood Pressure 133/63 Pulse Oximetry 92 96 Oxygen Delivery Method Nasal Cannula Nasal Cannula Oxygen Flow Rate 2 4 08/06/23 13:50 08/06/23 14:00 08/06/23 14:00 Temperature Pulse Rate 71 68 Respiratory Rate 15 12 Blood Pressure 129/102 H Pulse Oximetry 96 97 Oxygen Delivery Method Oxygen Flow Rate 08/06/23 14:01 08/06/23 14:10 08/06/23 14:20 Temperature Pulse Rate 79 74 Respiratory Rate 24 20 Blood Pressure 129/102 H Pulse Oximetry 96 96 Oxygen Delivery Method Oxygen Flow Rate 08/06/23 14:30 08/06/23 14:30 08/06/23 14:40 Temperature Pulse Rate 68 69 Respiratory Rate 16 18 Blood Pressure 127/58 L Pulse Oximetry 98 98 Oxygen Delivery Method Oxygen Flow Rate 08/06/23 14:50 08/06/23 15:00 08/06/23 15:00 Temperature Pulse Rate 73 70 Respiratory Rate 24 24 Blood Pressure 120/58 L Pulse Oximetry 96 97 Oxygen Delivery Method Oxygen Flow Rate 08/06/23 15:10 08/06/23 15:20 08/06/23 15:45 Temperature Pulse Rate 119 H 72 75 Respiratory Rate 24 24 24 Blood Pressure Pulse Oximetry 97 97 98 Oxygen Delivery Method Oxygen Flow Rate 08/06/23 15:46 08/06/23 15:46 08/06/23 15:50 Temperature Pulse Rate 74 69 Respiratory Rate 22 27 H Blood Pressure 144/67 H Pulse Oximetry 98 98 Oxygen Delivery Method Nasal Cannula Oxygen Flow Rate 3 08/06/23 16:00 08/06/23 16:00 08/06/23 16:10 Temperature Pulse Rate 53 L 72 Respiratory Rate 31 H 15 Blood Pressure 182/81 H Pulse Oximetry 96 99 Oxygen Delivery Method Nasal Cannula Nasal Cannula Oxygen Flow Rate 3 3 08/06/23 16:20 08/06/23 16:30 08/06/23 16:40 Temperature Pulse Rate 86 73 18 L Respiratory Rate 29 H 32 H 29 H Blood Pressure Pulse Oximetry 97 96 96 Oxygen Delivery Method Nasal Cannula Nasal Cannula Nasal Cannula Oxygen Flow Rate 3 3 3 08/06/23 16:50 Temperature Pulse Rate 72 Respiratory Rate 28 H Blood Pressure Pulse Oximetry 97 Oxygen Delivery Method Nasal Cannula Oxygen Flow Rate 3 MDM - SOB/Dyspnea Lab Data 08/06/23 13:22 08/06/23 13:22 Labs: Lab Results 08/06/23 08/06/23 08/06/23 Range/Units 13:20 13:22 13:40 WBC 13.1 H (4.5-11.0) X10^3/uL RBC 3.99 L (4.0-5.2) X10^6/uL Hgb 9.9 L (12.0-16.0) g/dL Hct 32.1 L (36-46) % MCV 80.3 (80-100) fL MCH 24.9 L (26-34) PG MCHC 31.0 (30-36) % RDW 17.0 H (11.6-14.8) % Plt Count 279 (150-400) X10^3/uL Neut % (Auto) 80.2 H (50-75) % Lymph % (Auto) 12.1 L (25-40) % Luna % (Auto) 4.8 (3-14) % Eos % (Auto) 2.1 (2-4) % Baso % (Auto) 0.8 (0-2) % Neut # (Auto) 11697 H (1971-3243) /uL Lymph # (Auto) 1600 (5820-0301) /uL Luna # (Auto) 600 (0-900) /uL Eos # (Auto) 300 (0-450) /uL Baso # (Auto) 100 (0-100) /uL PT 12.5 (9.4-12.5) SECONDS INR 1.1 (0.9-1.3) Sodium 140 (137-145) mmol/L Potassium 4.6 (3.4-5.1) mmol/L Chloride 100 (98-107) mmol/L Carbon Dioxide 38 H (22-32) mmol/L BUN 21 H (7-17) mg/dL Creatinine 0.85 (0.52-1.04) mg/dL Estimated GFR > 60 (>60) mL/min BUN/Creatinine Ratio 24.7 H (6-22) Glucose 175 H (80-110) mg/dL Lactate 1.3 (0.7-2.1) mmol/L Calcium 9.7 (8.4-10.2) mg/dL Total Bilirubin 0.6 (0.2-1.3) mg/dL AST 21 (14-36) IU/L ALT 20 (<35) IU/L Alkaline Phosphatase 93 (38-126) U/L Troponin I < 0.012 (0.01-0.034) ng/mL NT-Pro-B Natriuret Pep 454 H (<125) pg/mL Total Protein 8.1 (6.3-8.2) g/dL Albumin 3.9 (3.5-5.0) g/dL Globulin 4.2 H (1.7-4.1) g/dL Albumin/Globulin Ratio 0.9 L (1.0-2.8) Urine Color Yellow Urine Appearance Clear Urine pH 5.5 (4.5-8.0) Ur Specific Hudson 1.015 (1.000-1.035) Urine Protein Trace H (Negative) Urine Glucose (UA) Negative (Negative) g/dL Urine Ketones Negative (NEGATIVE) Urine Occult Blood Negative (Negative) Urine Nitrate Negative (Negative) Urine Bilirubin Negative (NEGATIVE) Urine Urobilinogen 0.2 (0.2) E.U./dL Ur Leukocyte Esterase Negative (NEGATIVE) Urine RBC 0-1/hpf (0-5/HPF) Urine WBC 0-1/hpf (0-5/HPF) Ur Squamous Epith Cells 10-30 /hpf H (0-5/HPF) Urine Bacteria Occasional (0-1) (None) Urine Mucus 1+ H (Negative) Ur Culture Indicated? Cult not indicated Vol Urine Centrifuged 10ml (spun) Chlamy pneumoniae PCR Not detected (Not Detect) Adenovirus (PCR) Not detected (Not Detect) B.parapertussis DNA PCR Not detected (Not Detecte) Coronavirus OC43 (PCR) Not detected (Not Detect) Coronavirus HKU1 (PCR) Not detected (Not Detect) Coronavirus 229E (PCR) Not detected (Not Detect) SARS-CoV-2 (PCR) Not detected (Not Detecte) Coronavirus NL63 (PCR) Not detected (Not Detect) Human Metapneumovir PCR Not detected (Not Detect) Influenza Type A (PCR) Not detected (Not Detect) Influenza Type B (PCR) Not detected (Not Detect) M. pneumoniae (PCR) Not detected (Not Detect) Parainfluenza 1 (PCR) Not detected (Not Detect) Parainfluenza 2 (PCR) Not detected (Not Detect) Parainfluenza 3 (PCR) Not detected (Not Detect) Parainfluenza 4 (PCR) Not detected (Not Detect) RSV (PCR) Not detected (Not Detect) Entero/Rhino (PCR) Not detected (Not Detect) 08/06/23 Range/Units 15:34 WBC (4.5-11.0) X10^3/uL RBC (4.0-5.2) X10^6/uL Hgb (12.0-16.0) g/dL Hct (36-46) % MCV (80-100) fL MCH (26-34) PG MCHC (30-36) % RDW (11.6-14.8) % Plt Count (150-400) X10^3/uL Neut % (Auto) (50-75) % Lymph % (Auto) (25-40) % Luna % (Auto) (3-14) % Eos % (Auto) (2-4) % Baso % (Auto) (0-2) % Neut # (Auto) (7107-0713) /uL Lymph # (Auto) (1918-5656) /uL Luna # (Auto) (0-900) /uL Eos # (Auto) (0-450) /uL Baso # (Auto) (0-100) /uL PT (9.4-12.5) SECONDS INR (0.9-1.3) Sodium (137-145) mmol/L Potassium (3.4-5.1) mmol/L Chloride (98-107) mmol/L Carbon Dioxide (22-32) mmol/L BUN (7-17) mg/dL Creatinine (0.52-1.04) mg/dL Estimated GFR (>60) mL/min BUN/Creatinine Ratio (6-22) Glucose (80-110) mg/dL Lactate (0.7-2.1) mmol/L Calcium (8.4-10.2) mg/dL Total Bilirubin (0.2-1.3) mg/dL AST (14-36) IU/L ALT (<35) IU/L Alkaline Phosphatase (38-126) U/L Troponin I < 0.012 (0.01-0.034) ng/mL NT-Pro-B Natriuret Pep (<125) pg/mL Total Protein (6.3-8.2) g/dL Albumin (3.5-5.0) g/dL Globulin (1.7-4.1) g/dL Albumin/Globulin Ratio (1.0-2.8) Urine Color Urine Appearance Urine pH (4.5-8.0) Ur Specific Hudson (1.000-1.035) Urine Protein (Negative) Urine Glucose (UA) (Negative) g/dL Urine Ketones (NEGATIVE) Urine Occult Blood (Negative) Urine Nitrate (Negative) Urine Bilirubin (NEGATIVE) Urine Urobilinogen (0.2) E.U./dL Ur Leukocyte Esterase (NEGATIVE) Urine RBC (0-5/HPF) Urine WBC (0-5/HPF) Ur Squamous Epith Cells (0-5/HPF) Urine Bacteria (None) Urine Mucus (Negative) Ur Culture Indicated? Vol Urine Centrifuged Chlamy pneumoniae PCR (Not Detect) Adenovirus (PCR) (Not Detect) B.parapertussis DNA PCR (Not Detecte) Coronavirus OC43 (PCR) (Not Detect) Coronavirus HKU1 (PCR) (Not Detect) Coronavirus 229E (PCR) (Not Detect) SARS-CoV-2 (PCR) (Not Detecte) Coronavirus NL63 (PCR) (Not Detect) Human Metapneumovir PCR (Not Detect) Influenza Type A (PCR) (Not Detect) Influenza Type B (PCR) (Not Detect) M. pneumoniae (PCR) (Not Detect) Parainfluenza 1 (PCR) (Not Detect) Parainfluenza 2 (PCR) (Not Detect) Parainfluenza 3 (PCR) (Not Detect) Parainfluenza 4 (PCR) (Not Detect) RSV (PCR) (Not Detect) Entero/Rhino (PCR) (Not Detect) Imaging Data Chest x-ray: Radiologist's Impression: [address] [address] XRay Report Signed Patient: Rocío Enriquez MR#: [id number] : 1960 Acct:[id number] Age/Sex: 62 / F Date of Service: 08/06/23 Loc: ED Accession Number: [id number] Procedure: XR chest 1V Ordering Provider: Erica Cooper D.O. PROCEDURE: XR CHEST 1V INDICATIONS: Shortness of breath TECHNIQUE: One view of the chest was acquired. COMPARISON: [facility], CR, XR CHEST 1V, 09/13/2022, 15:56. FINDINGS: Surgical changes and devices: Stable appearance of long segment thoracic spine surgical fusion. Interbody cage projects over the midthoracic spine. Lungs and pleura: Diffuse interstitial prominence. Loss of vascular distinctness. Patchy ill-defined airspace opacities bilaterally. Small bilateral pleural effusions. Mediastinum: Mediastinal contours appear normal. Heart size is enlarged. Bones and chest wall: No suspicious bony lesions. Overlying soft tissues appear unremarkable. IMPRESSION: Cardiomegaly with findings suggestive of pulmonary edema/CHF. Concurrent infectious or inflammatory process not excluded if clinically appropriate. Dictated by: Johan Calloway M.D. on 08/06/2023 at 14:00 Approved by: Johan Calloway M.D. on 08/06/2023 at 14:02 CT scan - chest: Radiologist's Impression: [address] [address] [address] Scan Report Signed Patient: Rocío Enriquez MR#: [id number] : 1960 Acct:[id number] Age/Sex: 62 / F Date of Service: 08/06/23 Loc: ED Accession Number: [id number] Procedure: CT angio chest PE protocol Ordering Provider: Erica Cooper D.O. PROCEDURE: CT ANGIO CHEST PE PROTOCOL INDICATIONS: right chest pain, increased o2, copd hx. recent hospitalizat TECHNIQUE: After the administration of intravenous contrast, 2 mm thick sections acquired from the pulmonary apices to the posterior costophrenic angles. 3-dimensional maximum intensity projection (MIP) coronal and sagittal reformats were then acquired through the thorax. For radiation dose reduction, the following was used: automated exposure control, adjustment of mA and/or kV according to patient size. COMPARISON: [facility], CT, CT ANGIO CHEST PE PROTOCOL, 07/02/2022, 22:20. [facility], CT, CT ANGIO CHEST PE PROTOCOL, 10/27/2018, 18:53. FINDINGS: Image quality: There is suboptimal timing of contrast bolus limiting evaluation of the pulmonary arteries. The pulmonary arteries were adequately visualized to level of the proximal segmental pulmonary arteries. Pulmonary arteries: Pulmonary arteries are normal in size, and demonstrate no intraluminal filling defects to suggest central pulmonary embolism. Lower Neck: No enlarged lymph nodes. Thyroid: No thyroid nodules which require sonographic follow up, per consensus guidelines. Axillae: No enlarged lymph nodes. Chest Wall: Unremarkable. Bones: Stable postsurgical changes long segment thoracic spinal fusion extending from T3 through T10. Lungs and Pleura: No pneumothorax or pleural effusions. Patchy consolidation of the left lower lobe. Left upper lobe appears clear. Irregular consolidation and air bronchograms of the right upper lobe with associated airway thickening. Right middle lobe is clear. Patchy opacities of the dependent portions of the right lower lobe likely representing atelectasis. Mild perihilar airway thickening. Heart: Heart size is normal. No pericardial effusion. Thoracic Vessels: No aortic aneurysm. Mediastinum and Kirstni: No enlarged lymph nodes. Esophagus: No wall thickening. Small hiatal hernia. Upper Abdomen: Status post cholecystectomy. Visualized upper abdomen solid organs and bowel loops appear normal. IMPRESSION: Study limited by suboptimal timing of contrast. No central acute pulmonary emboli identified. Patchy right upper lobe airspace consolidation with air bronchograms suggestive of pneumonia. Similar but less prominent finding noted in the left lower lobe. Mild patchy right basilar opacities favored to represent atelectasis. Other chronic findings as above. Dictated by: Johan Calloway M.D. on 08/06/2023 at 16:11 Approved by: Johan Calloway M.D. on 08/06/2023 at 16:16 ECG Data Attestation: I personally reviewed and interpreted this ECG as follows: Prior ECG tracings: available for review Interpretation: Sinus rhythm rate 82 CT 154 QRS 84 QTC of 429. No acute ST changes appreciated patient has prior from 09/13/2022 which appears similar. MDM Narrative Medical decision making narrative: This is a 62-year-old female with known COPD, congestive heart failure who actually presents more for left-sided hearing loss on examination patient has clear cerumen impaction which is likely source is irrigated here in the department. Patient also had some urinary frequency, UA showed trace protein no nitrates or leuks, 10-30 squamous, occasional bacteria, 0-1 white cells and 0-1 red cells. Patient was noted to have increased O2 requirement she is normally on 2 L at baseline. She does note she is used oxygen on and off for the past 10 years she has had some recent cough which has been nonproductive and felt little bit more wheezy this morning. She had 1 DuoNeb which she states did not make much change. She does note some right-sided chest pain. She had a recent hospitalization at [facility] for UTI with sepsis at that time she had a white count of 19 was tachycardic and showed diffuse bladder wall thickening and a calcitonin 2.82. She also had some changes suggesting acute diverticulitis, she was discharged home on Vantin and Flagyl. Patient was admitted on 07/03/2023 and discharged home on 07/04. Patient states she did get anticoagulation in the hospital but has some increased risk for pulmonary emboli with right-sided chest pain and increased O2 requirement although she is currently at 4 L nasal cannula. Labs show white count of 13.1, hemoglobin of 9.9. Hemoglobin was 9.7 last visit here. Patient's creatinine today is 0.85 with a BUN 21 glucose of 175 electrolytes are appropriate with a sodium of 140 potassium 4.6 chloride 100 CO2 of 38. Lactate-1.3- LFTs initial troponins less than 0.012. BNP is 454. Respiratory panel is negative. Troponin was repeated and is negative. EKG shows sinus rhythm without acute change. Chest x-ray shows cardiomegaly with findings suggestive for pulmonary edema/CHF with diffuse interstitial prominence loss of vascular indistinctness and patchy ill-defined airspace opacities bilaterally and small bilateral pleural effusions. CT angio shows patchy right upper lobe airspace disease with air bronchograms suggesting pneumonia, similar but less prominent in the left lower lobe. No central pulmonary emboli. Stable postsurgical changes. Patient has been weaned back down to 2 L and 95% Patient's ear was irrigated did not have a lot of output we will have patient continue with home irrigation as she appears to have a cerumen impaction. We will also cover her with an antibiotic for pneumonia short course of oral steroids as she likely is having little bit of COPD exacerbation. Discharge Plan Departure Patient Disposition: Home Clinical Impression: Pneumonia, Impacted cerumen of left ear Activity Restrictions/Additional Instructions: Continue to use the drops to your left ear once or twice daily and irrigate with warm water and a bulb suction to help with the cerumen impaction. I think this is causing your decreased hearing, the ear wax is quite dry and may take a couple days to loosen up. Your imaging does show changes consistent with pneumonia, I would recommend oral antibiotics. Prescription for steroids was also included to help prevent COPD exacerbation. Prescription sent to [facility] in [place]. Please return for new or worsening symptoms, worsening chest pain, shortness of breath, lightheadedness or passing out, increased swelling in your extremities, new pain in your ear or drainage or other new or concerning changes. Prescriptions: New doxycycline hyclate 100 mg tablet 100 mg PO BID Qty: 20 0RF prednisone 10 mg tablets,dose pack See Rx Instructions .ROUTE .COMPLEX Qty: 21 0RF Rx Instructions: 6 tabs p.o. x1 day, then 5 tabs p.o. x1 day, then 4 tablets p.o. x1 day, then 3 tabs p.o. x1 day, then 2 tabs p.o. x1 day, then 1 tab p.o. x1 day No Action carvedilol 25 mg Tablet 25 mg PO BID potassium chloride 10 mEq tablet,ER particles/crystals 10 meq PO BID nystatin [Nystop] 100,000 unit/gram Powder 1 applic topical TID PRN (Reason: Rash) Qty: 15 0RF oxycodone 5 mg Tablet 2.5 - 5 mg PO Q6H PRN (Reason: Pain (Scale Score 7-10)) Qty: 30 0RF metformin 500 mg tablet 500 mg PO QAM insulin lispro 100 unit/mL solution 10 units subcut 3-4XD PRN (Reason: Hyperglycemia) gabapentin 300 mg capsule 300 mg PO TID losartan 100 mg tablet 100 mg PO QAM amlodipine 10 mg tablet 10 mg PO QAM levetiracetam 750 mg Tablet 750 mg PO BID ferrous sulfate 324 mg (65 mg iron) Tablet,Delayed Release (Dr/Ec) 324 mg PO QAM furosemide 20 mg Tablet 40 mg PO QAM PRN (Reason: Edema) acetaminophen 325 mg Capsule 650 mg PO Q4H PRN (Reason: Pain, Moderate) (DME) oxygen-air delivery systems Device MISCELLANEOUS Rx Instructions: 2L NC oxygen Referrals: Nato Lin MD [Primary Care Provider] - Stand Alone Forms: Patient Portal/API
[2023-08-06 14:20] LABS: Adenovirus Not Detected (Not Detect); B. parapertussis Not Detected (Not Detecte); Bordetella pertussis Not Detected (Not Detect); Chlamydophila pneumoniae Not Detected (Not Detect); Coronavirus 229E Not Detected (Not Detect); Coronavirus HKU1 Not Detected (Not Detect); Coronavirus NL 63 Not Detected (Not Detect); Coronavirus OC43 Not Detected (Not Detect); Human Metapneumovirus Not Detected (Not Detect); Human Rhinovirus/Enterovirus Not Detected (Not Detect); Influenza A Not Detected (Not Detect); Influenza B Not Detected (Not Detect); Mycoplasma pneumoniae Not Detected (Not Detect); Parainfluenza Virus 1 Not Detected (Not Detect); Parainfluenza Virus 2 Not Detected (Not Detect); Parainfluenza Virus 3 Not Detected (Not Detect); Parainfluenza Virus 4 Not Detected (Not Detect); Respiratory Syncytial Virus Not Detected (Not Detect); SARS- CoV-2 Not Detected (Not Detecte)
[2023-08-06 14:40] LABS: Appearance Urine UA CLEAR; Bilirubin Urine UA NEGATIVE (NEGATIVE); Color Urine UA YELLOW; Glucose Urine UA NEGATIVE (Negative); Ketones Urine UA NEGATIVE (NEGATIVE); Leukocyte Esterase Urine UA NEGATIVE (NEGATIVE); Nitrite Urine UA NEGATIVE (Negative); Occult Blood Urine UA NEGATIVE (Negative); Protein Urine UA TRACE (Negative); Specific Gravity Urine UA 1.015 (1.000-1.035); Urobilinogen Urine UA 0.2 E.U./dL (0.2)
[2023-08-06 14:41] LABS: pH Urine UA 5.5 (4.5-8.0)
[2023-08-06 14:47] LABS: Bacteria Urine Occasional (0-1); RBC Urine 0-1/HPF (0-5/HPF); Urine Volume 10mL (spun); WBC Urine 0-1/HPF (0-5/HPF)
[2023-08-06 14:48] LABS: Culture Indicated Urine Cult Not Indicated; Mucus Urine 1+ (Negative); Squamous Epithelial Cell Urine 10-30 /HPF (0-5/HPF)
--- NOTE | 2023-08-06 15:11 | DI.CT.S_ITS ---
PROCEDURE: CT ANGIO CHEST PE PROTOCOL INDICATIONS: right chest pain, increased o2, copd hx. recent hospitalizat TECHNIQUE: After the administration of intravenous contrast, 2 mm thick sections acquired from the pulmonary apices to the posterior costophrenic angles. 3-dimensional maximum intensity projection (MIP) coronal and sagittal reformats were then acquired through the thorax. For radiation dose reduction, the following was used: automated exposure control, adjustment of mA and/or kV according to patient size. COMPARISON: [facility], CT, CT ANGIO CHEST PE PROTOCOL, 07/02/2022, 22:20. [facility], CT, CT ANGIO CHEST PE PROTOCOL, 10/27/2018, 18:53. FINDINGS: Image quality: There is suboptimal timing of contrast bolus limiting evaluation of the pulmonary arteries. The pulmonary arteries were adequately visualized to level of the proximal segmental pulmonary arteries. Pulmonary arteries: Pulmonary arteries are normal in size, and demonstrate no intraluminal filling defects to suggest central pulmonary embolism. Lower Neck: No enlarged lymph nodes. Thyroid: No thyroid nodules which require sonographic follow up, per consensus guidelines. Axillae: No enlarged lymph nodes. Chest Wall: Unremarkable. Bones: Stable postsurgical changes long segment thoracic spinal fusion extending from T3 through T10. Lungs and Pleura: No pneumothorax or pleural effusions. Patchy consolidation of the left lower lobe. Left upper lobe appears clear. Irregular consolidation and air bronchograms of the right upper lobe with associated airway thickening. Right middle lobe is clear. Patchy opacities of the dependent portions of the right lower lobe likely representing atelectasis. Mild perihilar airway thickening. Heart: Heart size is normal. No pericardial effusion. Thoracic Vessels: No aortic aneurysm. Mediastinum and Kirstin: No enlarged lymph nodes. Esophagus: No wall thickening. Small hiatal hernia. Upper Abdomen: Status post cholecystectomy. Visualized upper abdomen solid organs and bowel loops appear normal. IMPRESSION: Study limited by suboptimal timing of contrast. No central acute pulmonary emboli identified. Patchy right upper lobe airspace consolidation with air bronchograms suggestive of pneumonia. Similar but less prominent finding noted in the left lower lobe. Mild patchy right basilar opacities favored to represent atelectasis. Other chronic findings as above. Dictated by: Johan Calloway M.D. on 08/06/2023 at 16:11 Approved by: Johan Calloway M.D. on 08/06/2023 at 16:16
[2023-08-06] MEDS: CARBAMIDE PEROXIDE OTIC 15 ML 4 DROPS EAR-LEFT (15:17)
[2023-08-06 16:01] LABS: Troponin I < 0.012 ng/mL (0.01-0.034)
[2023-08-06] MEDS: methylPREDNISolone 125 MG/2 ML VIAL IV (16:52)
[2023-08-06] MEDS: DOXYCYCLINE HYCLATE 100 MG TABLET PO (16:52)
== END 2023-08-06 17:11 | disposition home or self-care (01) ==
PROVIDERS: Emergency Provider Emergency Medicine; PCP Family Medicine
DX: J18.9 Pneumonia, unspecified organism (principal); H61.22 Impacted cerumen, left ear; R07.9 Chest pain, unspecified; R06.02 Shortness of breath; Z20.822 Contact with and (suspected) exposure to COVID-19
CPT/HCPCS: 36415; 71045; 71275; 80053; 81001; 83605; 83880; 84484; 85025; 85610; 87633; 93005; 94640; 96374; 99284; 99285; J2919; Q9967

== ENCOUNTER 2024-07-14 14:05 | Emergency (ER) | payer MEDICARE, MEDICAID, SELFPAY ==
[2022-09-14 04:35] VITALS: BMI 48.6
[2024-07-14] VITALS (18 sets, daily range): BP systolic 138–184; BP diastolic 60–79; PULSE 61–80; RESP 16–28; TEMP 36.3; O2SAT 88–97; BMI 47.8
[2024-07-14 14:37] LABS: Add Manual Diff / Slide Review NO; Basophils Absolute Auto 100 /uL (0-100); Basophils Percent Auto 0.9 % (0-2); Eosinophils Absolute Auto 100 /uL (0-450); Eosinophils Percent Auto 0.5 % (2-4); Hematocrit 36.2 % (36-46); Hemoglobin 11.3 g/dL (12.0-16.0); Lymphocytes Absolute Auto 1500 /uL (1100-4500); Lymphocytes Percent Auto 13.5 % (25-40); Mean Corpuscular HGB Conc 31.2 % (30-36); Mean Corpuscular Hemoglobin 24.5 PG (26-34); Mean Corpuscular Volume 78.6 fL (80-100); Monocytes Absolute Auto 700 /uL (0-900); Monocytes Percent Auto 6.4 % (3-14); Neutrophils Absolute Auto 8600 /uL (1500-7000); Neutrophils Percent Auto 78.7 % (50-75); Platelet Count 307 X10^3/uL (150-400); Red Blood Cell Count 4.61 X10^6/uL (4.0-5.2); White Blood Cell Count 10.9 X10^3/uL (4.5-11.0)
[2024-07-14 14:42] LABS: Alanine Aminotransferase 139 IU/L (<35); Albumin Globulin Ratio 1.1 (1.0-2.8); Alkaline Phosphatase 107 U/L (38-126); Aspartate Aminotransferase 41 IU/L (14-36); Bilirubin Total 0.5 mg/dL (0.2-1.3); Blood Urea Nitrogen 24 mg/dL (7-17); Calcium 9.1 mg/dL (8.4-10.2); Carbon Dioxide 36 mmol/L (22-32); Chloride 97 mmol/L (98-107); Estimated Glomerular Filt Rate > 60 mL/min (>60); Globulin 3.7 g/dL (1.7-4.1); Glucose 131 mg/dL (80-110); HEMOLYSIS < 15 (0-50); Lipase 52 U/L (23-300); Sodium 140 mmol/L (137-145); Total Protein 7.7 g/dL (6.3-8.2)
--- NOTE | 2024-07-14 14:50 | PC.NURSE ---
patient arrived via EMS with feces all over her feet, ankles, bottom of pants and O2 tubing from home. RN attempted to clean the feces off patient however some of it is in the cracks and grooves of feet and ankles and it was causing the patient pain.
--- NOTE | 2024-07-14 14:51 | EKG_ITS ---
[facility] [address] [address] Test Date: 2024-07-14 Pat Name: Rocío Enriquez Department: [facility] Room: Gender: Female Research Development Director: FREDY : 1960 Requested By: Order Number: [id number] Reading MD: Maciel Maria MD Measurements Intervals [place] Rate: 62 P: 36 OK: 160 QRS: 41 QRSD: 88 T: 87 QT: 444 QTc: 450 Interpretive Statements Normal sinus rhythm Minimal voltage criteria for LVH, may be normal variant ( Stovall product ) Electronically Signed On 07-14-2024 15:04:46 PDT by Maciel Maria MD
[2024-07-14] MEDS: ALBUTEROL/IPRATROPIUM 3 ML AMPUL INH ×2 (15:11→16:41)
[2024-07-14 15:20] LABS: COVID-19 CEPHEID 4-PLEX PCR Negative (Negative); Influenza A - CEPHEID Flu A POSITIVE (NEGATIVE); Influenza B - CEPHEID Flu B NEGATIVE (NEGATIVE); Respiratory Syncytial Virus Negative (Negative)
--- NOTE | 2024-07-14 15:30 | ED_ITS ---
HPI - SOB/Dyspnea General Chief Complaint: Shortness of Breath/Dyspnea Stated Complaint: inc. SOB/ hypotensive Time Seen by Provider: 07/14/24 15:29 Source: EMS Mode of arrival: EMS Limitations: physical limitation History of Present Illness HPI Narrative: 63yo female reports history of COPD, CHF, chronic home oxygen use 2-lpm flow rate, has productive cough and increased shortness of breath last few days. Had stopped taking Lasix that was prescribed in the past, was told that she did not need it. No chronic oral steroids. Denies chest pain. Related Data Home Medications Medication Instructions Recorded Confirmed carvedilol 25 mg tablet 25 mg PO BID 09/20/18 09/13/22 potassium chloride 10 mEq 10 meq PO BID 09/20/18 09/13/22 tablet,extended release(part/cryst) insulin lispro 100 unit/mL 10 units SUBCUT 3-4XD PRN 10/10/18 09/13/22 subcutaneous solution Hyperglycemia gabapentin 300 mg capsule 300 mg PO TID 04/07/20 09/13/22 losartan 100 mg tablet 100 mg PO QAM 04/07/20 09/13/22 acetaminophen 325 mg capsule 650 mg PO Q4H PRN Pain, Moderate 05/16/20 09/13/22 amlodipine 10 mg tablet 10 mg PO QAM 05/16/20 09/13/22 ferrous sulfate 324 mg (65 mg 324 mg PO QAM 05/16/20 09/13/22 iron) tablet,delayed release furosemide 20 mg tablet 40 mg PO QAM PRN Edema 05/16/20 09/13/22 levetiracetam 750 mg tablet 750 mg PO BID 05/16/20 09/13/22 oxygen-air delivery systems 05/16/20 09/14/22 metformin 500 mg PO QAM 09/13/22 09/13/22 Previous Rx's Medication Instructions Recorded nystatin 100,000 unit/gram topical 1 applic topical TID PRN Rash #15 07/06/22 powder (Nystop) grams oxycodone 5 mg tablet 2.5 - 5 mg (0.5 - 1 x 5 mg) PO Q6H 07/06/22 PRN Pain (Scale Score 7-10) #30 tabs doxycycline hyclate 100 mg tablet 100 mg PO BID #20 tabs 08/06/23 prednisone 10 mg tablets in a dose See Rx Instructions PO .COMPLEX 08/06/23 pack #21 ea albuterol sulfate 90 mcg/actuation 2 puff inhalation Q6H PRN 07/14/24 aerosol inhaler shortness of breath or wheezing #8.5 grams doxycycline hyclate 100 mg capsule 100 mg PO BID #20 caps 07/14/24 oseltamivir 75 mg capsule (Tamiflu) 75 mg PO BID 5 days #10 caps 07/14/24 prednisone 20 mg tablet 40 mg (2 x 20 mg) PO DAILY 5 days 07/14/24 #10 tabs Allergies Allergy/AdvReac Type Severity Reaction Status Date / Time naproxen Allergy Mild MADE MY Verified 09/13/22 15:53 FACE NUMB Penicillins Allergy Mild Rash Verified 09/13/22 17:36 meperidine Allergy Unknown Verified 09/13/22 15:53 Sulfa (Sulfonamide Allergy Unknown Verified 09/13/22 15:53 Antibiotics) diphenhydramine AdvReac Shakiness Verified 09/13/22 15:53 [From Ya] Patient History Medical History History of cellulitis Bilateral lower extremity edema Personal history of osteomyelitis Chronic respiratory failure History of congestive heart failure Hypoxia Meningioma Diabetes Morbidly obese COPD (chronic obstructive pulmonary disease) Hypertension Surgical History History of craniotomy Status post appendectomy Status post cholecystectomy Family History Daughter No problems noted. Son No problems noted. Mother Diabetes mellitus Congestive heart failure Father Diabetes mellitus Social History household members: children Smoking Status: Never smoker alcohol intake: current Smoking Status: Never smoker alcohol intake frequency: holidays/special occasions only Exam Narrative Exam Narrative: GENERAL: Well-developed patient, in mild distress. HEAD: Atraumatic. Normocephalic. EYES: Pupils equal round and reactive. Extraocular motions intact. No scleral icterus. No injection or drainage. ENT: Nose without bleeding, purulent drainage. Throat without erythema, tonsillar hypertrophy or exudate. Airway patent. NECK: Trachea midline. Non tender CARDIOVASCULAR: Regular rate and rhythm without murmurs, gallops, or rubs. RESPIRATORY: Clear to auscultation. Breath sounds equal bilaterally. No wheezes, rales, or rhonchi. GASTROINTESTINAL: Abdomen soft, non-tender, nondistended. EXTREMITIES: No edema or joint tenderness. BACK: Nontender without deformity or crepitance. No flank tenderness. NEURO: AOx3. Motor functions grossly nonfocal SKIN: No rash or erythema of visible areas Initial Vital Signs Initial Vital Signs: Vital Signs Temperature 97.4 F L 07/14/24 14: Pulse Rate 63 07/14/24 14: Respiratory Rate 18 07/14/24 14: Blood Pressure 144/60 H 07/14/24 14: Pulse Oximetry 90 L 07/14/24 14: Oxygen Delivery Method Nasal Cannula 07/14/24 14: Oxygen Flow Rate 2 07/14/24 14:26 Course Orders Ordered: Discontinued Medications Albuterol/Ipratropium (Albuterol/Ipratropium 3 Ml Ampul) 3 ml INH NOW ONE Stop: 07/14/24 15:09 Last Admin: 07/14/24 15:11 Dose: 3 ml Documented By: GLADIS Albuterol/Ipratropium (Albuterol/Ipratropium 3 Ml Ampul) 3 ml INH NOW ONE Stop: 07/14/24 16:27 Last Admin: 07/14/24 16:41 Dose: 3 ml Documented By: MAXINE Doxycycline Hyclate (Doxycycline Hyclate 100 Mg Tablet) 100 mg PO NOW ONE Stop: 07/14/24 17:56 Last Admin: 07/14/24 18:27 Dose: 100 mg Documented By: MAXINE Furosemide (Furosemide 40 Mg/4 Ml Vial) 40 mg IV NOW ONE Stop: 07/14/24 17:55 Last Admin: 07/14/24 18:27 Dose: 40 mg Documented By: MAXINE Methylprednisolone (Methylprednisolone 125 Mg/2 Ml Vial) 125 mg IV NOW ONE Stop: 07/14/24 16:27 Last Admin: 07/14/24 16:41 Dose: 125 mg Documented By: MAXINE Ondansetron HCl (Ondansetron 4 Mg/2 Ml Inj) 4 mg IV NOW PRN PRN Reason: Nausea And Vomiting Ondansetron HCl (Ondansetron 4 Mg Odt) 4 mg PO NOW PRN PRN Reason: Nausea And Vomiting Oseltamivir Phosphate (Oseltamivir 75 Mg Capsule) 75 mg PO NOW ONE Stop: 07/14/24 16:26 Last Admin: 07/14/24 16:41 Dose: 75 mg Documented By: MAXINE Vital Signs Vital signs: Vital Signs - 8 hr 07/14/24 14:26 07/14/24 14:30 07/14/24 14:42 Temperature 97.4 F L Pulse Rate 63 66 Respiratory Rate 18 Blood Pressure 144/60 H 156/67 H Pulse Oximetry 90 L 94 Oxygen Delivery Method Nasal Cannula Oxygen Flow Rate 2 Fraction of Inspired Oxygen 07/14/24 14:42 07/14/24 15:00 07/14/24 15:11 Temperature Pulse Rate 61 66 Respiratory Rate 18 18 Blood Pressure 153/66 H Pulse Oximetry 96 92 Oxygen Delivery Method Nasal Cannula Nasal Cannula Oxygen Flow Rate 2 2 Fraction of Inspired Oxygen 28 07/14/24 15:30 07/14/24 15:30 07/14/24 15:58 Temperature Pulse Rate 63 64 Respiratory Rate 20 23 Blood Pressure 138/65 Pulse Oximetry 88 L Oxygen Delivery Method Oxygen Flow Rate 2 Fraction of Inspired Oxygen 07/14/24 15:58 07/14/24 16:00 07/14/24 16:00 Temperature Pulse Rate 65 Respiratory Rate 18 Blood Pressure 164/74 H 158/69 H Pulse Oximetry 93 Oxygen Delivery Method Nasal Cannula Oxygen Flow Rate 2 Fraction of Inspired Oxygen 07/14/24 16:30 07/14/24 16:34 07/14/24 16:34 Temperature Pulse Rate 66 64 Respiratory Rate 21 18 Blood Pressure 184/79 H Pulse Oximetry 96 97 Oxygen Delivery Method Oxygen Flow Rate Fraction of Inspired Oxygen 07/14/24 16:41 07/14/24 17:00 07/14/24 17:01 Temperature Pulse Rate 64 63 64 Respiratory Rate 16 Blood Pressure Pulse Oximetry 94 Oxygen Delivery Method Nasal Cannula Oxygen Flow Rate 2 Fraction of Inspired Oxygen 07/14/24 17:01 07/14/24 17:30 07/14/24 17:35 Temperature Pulse Rate 62 63 Respiratory Rate 24 28 H Blood Pressure 168/70 H Pulse Oximetry 96 94 94 Oxygen Delivery Method Nasal Cannula Oxygen Flow Rate 2 Fraction of Inspired Oxygen 07/14/24 17:35 07/14/24 18:00 07/14/24 18:30 Temperature Pulse Rate 80 73 Respiratory Rate 18 Blood Pressure 171/72 H Pulse Oximetry 96 92 Oxygen Delivery Method Oxygen Flow Rate Fraction of Inspired Oxygen 07/14/24 18:31 07/14/24 18:31 Temperature Pulse Rate 71 Respiratory Rate 24 Blood Pressure 164/71 H Pulse Oximetry 94 Oxygen Delivery Method Nasal Cannula Oxygen Flow Rate 2 Fraction of Inspired Oxygen MDM - SOB/Dyspnea Lab Data Attestation: I reviewed the patient's lab results. Lab results narrative: White blood cell count 89339, hemoglobin 11.3, platelets adequate. Glucose 131. BUN 24 with creatinine 0.89 normal renal function. Sodium 140, potassium 4.0, serum CO2 36 elevated. Slight transaminitis, normal alkaline phosphatase and total bilirubin. Normal lipase. Influenza type A was positive. Influenza B and RSV and COVID negative. BNP 334 not elevated. 07/14/24 14:27 07/14/24 14:27 Labs: Lab Results 07/14/24 07/14/24 07/14/24 Range/Units 14:27 14:37 15:56 WBC 10.9 (4.5-11.0) X10^3/uL RBC 4.61 (4.0-5.2) X10^6/uL Hgb 11.3 L (12.0-16.0) g/dL Hct 36.2 (36-46) % MCV 78.6 L (80-100) fL MCH 24.5 L (26-34) PG MCHC 31.2 (30-36) % RDW 17.0 H (11.6-14.8) % Plt Count 307 (150-400) X10^3/uL Neut % (Auto) 78.7 H (50-75) % Lymph % (Auto) 13.5 L (25-40) % [place] % (Auto) 6.4 (3-14) % Eos % (Auto) 0.5 L (2-4) % Baso % (Auto) 0.9 (0-2) % Neut # (Auto) 8600 H (0360-6806) /uL Lymph # (Auto) 1500 (9404-4520) /uL [place] # (Auto) 700 (0-900) /uL Eos # (Auto) 100 (0-450) /uL Baso # (Auto) 100 (0-100) /uL Sodium 140 (137-145) mmol/L Potassium 4.0 (3.4-5.1) mmol/L Chloride 97 L (98-107) mmol/L Carbon Dioxide 36 H (22-32) mmol/L BUN 24 H (7-17) mg/dL Creatinine 0.89 (0.52-1.04) mg/dL Estimated GFR > 60 (>60) mL/min BUN/Creatinine Ratio 27.0 H (6-22) Glucose 131 H (80-110) mg/dL Calcium 9.1 (8.4-10.2) mg/dL Total Bilirubin 0.5 (0.2-1.3) mg/dL AST 41 H (14-36) IU/L ALT 139 H (<35) IU/L Alkaline Phosphatase 107 (38-126) U/L NT-Pro-B Natriuret Pep 334 H (<125) pg/mL Total Protein 7.7 (6.3-8.2) g/dL Albumin 4.0 (3.5-5.0) g/dL Globulin 3.7 (1.7-4.1) g/dL Albumin/Globulin Ratio 1.1 (1.0-2.8) Lipase 52 (23-300) U/L Urine RBC None seen (0-5/HPF) Urine WBC 0-1/hpf (0-5/HPF) Ur Squamous Epith Cells 0-1 /hpf D (0-5/HPF) Urine Bacteria Many (>30) H (None) Ur Culture Indicated? Cult not indicated Vol Urine Centrifuged 10ml (spun) SARS-CoV-2 (PCR) Negative (Negative) Influenza A (RT-PCR) Flu a positive H (NEGATIVE) Influenza B (RT-PCR) Flu b negative (NEGATIVE) RSV (PCR) Negative (Negative) Urine Dip Bedside Urine Glucose Negative Bedside Urine Bilirubin - Negative Bedside Urine Ketone - Negative Urine Specific [place] 1.010 Bedside Urine Occult Blood +/- Bedside Urine pH 6.0 Bedside Urine Protein + 30 Bedside Urine Urobilinogen - Negative Bedside Urine Nitrite - Negative Bedside Urine Leukocytes - Negative Esterase Imaging Data Chest x-ray: Radiologist's Impression: [address] [address] XRay Report Signed Patient: Rocío Enriquez MR#: [id number] : 1960 Acct:[id number] Age/Sex: 63 / F Date of Service: 07/14/24 Loc: ED Accession Number: [id number] Procedure: XR chest 1V Ordering Provider: Joe Stanton MD PROCEDURE: XR CHEST 1V INDICATIONS: SOB/COPD/+flu TECHNIQUE: One view of the chest was acquired. COMPARISON: [facility], CR, XR CHEST 1V, 09/13/2022, 15:56. [facility], CR, XR CHEST 1V, 08/06/2023, 13:29. FINDINGS: Surgical changes and devices: Thoracic spine postoperative hardware is seen. Lungs and pleura: Minimal infiltrate can be seen within the left mid lung. Generalized interstitial prominence can be seen. Mediastinum: Mediastinal contours appear normal. Cardiac size is moderately enlarged. Bones and chest wall: No suspicious bony lesions. Age-appropriate bony degenerative changes are seen. Overlying soft tissues appear unremarkable. IMPRESSION: Cardiomegaly with interstitial prominence. CHF is suspected. Minimal left midlung infiltrate. Postoperative and degenerative changes are seen. Dictated by: Aden Anderson M.D. on 07/14/2024 at 16:39 Approved by: Aden Anderson M.D. on 07/14/2024 at 16:40 ECG Data Attestation: I personally reviewed and interpreted this ECG as follows: Interpretation: Normal sinus rhythm with a rate of 62,. No obvious ST segment elevation or depression changes. VA is 160, QRS 88, QTC 450. [facility] Narrative Medical decision making narrative: 64-year-old female with history of COPD, congestive heart failure, had stopped Lasix, usually on 2.5 L oxygen, recent cough, increasing shortness of breath. Wheeze bilaterally. IV Solu-Medrol, DuoNeb treatment. Chest x-ray with cardiomegaly, no obvious infiltrates. My wet read. Await Radiology over-read. Chest x-ray over-read by Radiology, possible lower lobe small infiltrate, CHF suspected. See radiology report. BNP 334 not elevated. COVID negative, influenza type B negative, RSV negative. Influenza type A positive. Symptoms more than 48-72 hours however patient with pulmonary decompensation increased hypoxia, we will give oral Tamiflu. Weaned from 5 L oxygen to her baseline 2 L oxygen. BNP not elevated, we will hold restart of Lasix that she had been on before. We will discharge on oral doxycycline, further prednisone 5 day pulse, continue taking her usual home oxygen at 2 liters/minute flow rate. Rx for Tamiflu oral course. Discharged home with family. Advised follow up with PCP. Return precautions discussed. Discharge Plan Departure Patient Disposition: Home Clinical Impression: COPD exacerbation, Congestive heart failure, Influenza A Instructions: DI for Chronic Obstructive Pulmonary Disease Activity Restrictions/Additional Instructions: History of congestive heart failure, history of COPD, usually on 2.5 L oxygen at home, increased shortness of breath, increased initial oxygen requirement, some wheezing on examination. Breathing treatments given. IV steroid given. Chest x-ray suspicious for some fluid overload, you had been on Lasix in the past for congestive heart failure, however BNP test was not elevated, as might be expected with exacerbation of congestive heart failure. Chest x-ray suspicious for small infiltrate, it is possible this might be pneumonia versus small area of atelectasis. We will start antibiotic doxycycline in case there is infection. Further antibiotics sent to your pharmacy. Prescription for further prednisone to take for the next few days sent to your pharmacy. Swab was positive for influenza type A, antiviral medication Tamiflu was given, further prescription for Tamiflu course sent to your pharmacy. Discuss possible restart of Lasix with your regular doctor in follow up. Recheck with your regular doctor advised the next few days. Return earlier to this/nearest emergency department for any change worsening symptoms or any concerns prior. Prescriptions: New doxycycline hyclate 100 mg capsule 100 mg PO BID Qty: 20 0RF albuterol sulfate 90 mcg/actuation HFA aerosol inhaler 2 puff inhalation Q6H PRN (Reason: shortness of breath or wheezing) Qty: 8.5 0RF prednisone 20 mg tablet 40 mg PO DAILY 5 Days Qty: 10 0RF oseltamivir [Tamiflu] 75 mg capsule 75 mg PO BID 5 Days Qty: 10 0RF No Action carvedilol 25 mg Tablet 25 mg PO BID potassium chloride 10 mEq tablet,ER particles/crystals 10 meq PO BID nystatin [Nystop] 100,000 unit/gram Powder 1 applic topical TID PRN (Reason: Rash) Qty: 15 0RF oxycodone 5 mg Tablet 2.5 - 5 mg PO Q6H PRN (Reason: Pain (Scale Score 7-10)) Qty: 30 0RF metformin 500 mg tablet 500 mg PO QAM doxycycline hyclate 100 mg tablet 100 mg PO BID Qty: 20 0RF prednisone 10 mg tablets,dose pack See Rx Instructions .ROUTE .COMPLEX Qty: 21 0RF Rx Instructions: 6 tabs p.o. x1 day, then 5 tabs p.o. x1 day, then 4 tablets p.o. x1 day, then 3 tabs p.o. x1 day, then 2 tabs p.o. x1 day, then 1 tab p.o. x1 day insulin lispro 100 unit/mL solution 10 units subcut 3-4XD PRN (Reason: Hyperglycemia) gabapentin 300 mg capsule 300 mg PO TID losartan 100 mg tablet 100 mg PO QAM amlodipine 10 mg tablet 10 mg PO QAM levetiracetam 750 mg Tablet 750 mg PO BID ferrous sulfate 324 mg (65 mg iron) Tablet,Delayed Release (Dr/Ec) 324 mg PO QAM furosemide 20 mg Tablet 40 mg PO QAM PRN (Reason: Edema) acetaminophen 325 mg Capsule 650 mg PO Q4H PRN (Reason: Pain, Moderate) (DME) oxygen-air delivery systems Device MISCELLANEOUS Rx Instructions: 2L NC oxygen Referrals: Nato Lin MD [Primary Care Provider] - Stand Alone Forms: Patient Portal/API/Survey
--- NOTE | 2024-07-14 15:58 | PC.NURSE ---
Pt is on home O2 for COPD. Noted to be 88% on 2L. increased to 4L with improvement. pt is Flu A+. MD aware.
[2024-07-14 16:19] LABS: Bacteria Urine Many (>30); RBC Urine None Seen (0-5/HPF); Squamous Epithelial Cell Urine 0-1 /HPF (0-5/HPF); Urine Volume 10mL (spun); WBC Urine 0-1/HPF (0-5/HPF)
[2024-07-14 16:20] LABS: Culture Indicated Urine Cult Not Indicated
--- NOTE | 2024-07-14 16:36 | DI.RAD.S_ITS ---
PROCEDURE: XR CHEST 1V INDICATIONS: SOB/COPD/+flu TECHNIQUE: One view of the chest was acquired. COMPARISON: [facility], CR, XR CHEST 1V, 09/13/2022, 15:56. [facility], CR, XR CHEST 1V, 08/06/2023, 13:29. FINDINGS: Surgical changes and devices: Thoracic spine postoperative hardware is seen. Lungs and pleura: Minimal infiltrate can be seen within the left mid lung. Generalized interstitial prominence can be seen. Mediastinum: Mediastinal contours appear normal. Cardiac size is moderately enlarged. Bones and chest wall: No suspicious bony lesions. Age-appropriate bony degenerative changes are seen. Overlying soft tissues appear unremarkable. IMPRESSION: Cardiomegaly with interstitial prominence. CHF is suspected. Minimal left midlung infiltrate. Postoperative and degenerative changes are seen. Dictated by: Aden Anderson M.D. on 07/14/2024 at 16:39 Approved by: Aden Anderson M.D. on 07/14/2024 at 16:40
[2024-07-14] MEDS: OSELTAMIVIR 75 MG CAPSULE PO (16:41)
[2024-07-14] MEDS: methylPREDNISolone 125 MG/2 ML VIAL IV (16:41)
[2024-07-14 16:58] LABS: NT-proBNP (BNP-Adult 18+) 334 pg/mL (<125)
[2024-07-14] MEDS: DOXYCYCLINE HYCLATE 100 MG TABLET PO (18:27)
[2024-07-14] MEDS: FUROSEMIDE 40 MG/4 ML VIAL IV (18:27)
== END 2024-07-14 18:54 | disposition home or self-care (01) ==
PROVIDERS: Emergency Provider Emergency Medicine; PCP Family Medicine
DX: J44.1 Chronic obstructive pulmonary disease with (acute) exacerbation (principal); J10.1 Influenza due to other identified influenza virus with other respiratory manifestations; I50.9 Heart failure, unspecified; R05.9 Cough, unspecified; Z99.81 Dependence on supplemental oxygen
CPT/HCPCS: 0241U; 36415; 71045; 80053; 81003; 81015; 83690; 83880; 85025; 93005; 93010; 94640; 96374; 96375; 99285; J1940; J2919

== ENCOUNTER 2024-08-13 17:03 | Emergency (ER) | payer MEDICARE, MEDICAID, SELFPAY ==
[2022-09-14 04:35] VITALS: BMI 48.6
[2024-08-13 17:19] VITALS: BP 179/74; PULSE 75; RESP 16; TEMP 36.8; O2SAT 94; BMI 55.0
[2024-08-13 18:10] VITALS: BP 208/83; PULSE 98; O2SAT 98
[2024-08-13 18:30] VITALS: BP 188/79; PULSE 79; RESP 16; O2SAT 98
[2024-08-13 18:33] LABS: Add Manual Diff / Slide Review NO; Basophils Absolute Auto 100 /uL (0-100); Basophils Percent Auto 0.9 % (0-2); Eosinophils Absolute Auto 300 /uL (0-450); Eosinophils Percent Auto 3.4 % (2-4); Hematocrit 34.7 % (36-46); Hemoglobin 10.9 g/dL (12.0-16.0); Lymphocytes Absolute Auto 1500 /uL (1100-4500); Lymphocytes Percent Auto 17.7 % (25-40); Mean Corpuscular HGB Conc 31.4 % (30-36); Mean Corpuscular Hemoglobin 24.9 PG (26-34); Mean Corpuscular Volume 79.4 fL (80-100); Monocytes Absolute Auto 500 /uL (0-900); Monocytes Percent Auto 6.2 % (3-14); Neutrophils Absolute Auto 6300 /uL (1500-7000); Neutrophils Percent Auto 71.8 % (50-75); Platelet Count 376 X10^3/uL (150-400); Red Blood Cell Count 4.38 X10^6/uL (4.0-5.2); Red Cell Distribution Width 17.2 % (11.6-14.8); White Blood Cell Count 8.7 X10^3/uL (4.5-11.0)
[2024-08-13 18:59] LABS: Alanine Aminotransferase 28 IU/L (<35); Albumin 4.2 g/dL (3.5-5.0); Albumin Globulin Ratio 1.1 (1.0-2.8); Alkaline Phosphatase 117 U/L (38-126); Aspartate Aminotransferase 27 IU/L (14-36); BUN Creatinine Ratio 18.6 (6-22); Bilirubin Total 0.4 mg/dL (0.2-1.3); Blood Urea Nitrogen 18 mg/dL (7-17); Calcium 9.4 mg/dL (8.4-10.2); Carbon Dioxide 31 mmol/L (22-32); Chloride 102 mmol/L (98-107); Estimated Glomerular Filt Rate > 60 mL/min (>60); Globulin 3.9 g/dL (1.7-4.1); Glucose 153 mg/dL (70-99); HEMOLYSIS < 15 (0-50); Lipase 80 U/L (23-300); Potassium 4.1 mmol/L (3.4-5.1); Sodium 140 mmol/L (137-145); Total Protein 8.1 g/dL (6.3-8.2)
[2024-08-13 19:00] VITALS: BP 170/72; PULSE 72; RESP 20; O2SAT 97
[2024-08-13 19:31] VITALS: BP 181/67; PULSE 80; RESP 16; O2SAT 96
[2024-08-13 20:00] VITALS: BP 197/79; PULSE 89; RESP 18; O2SAT 96
--- NOTE | 2024-08-13 20:02 | ED_ITS ---
HPI - Extremity Problem General Chief complaint: Extremity Problem,Nontraumatic Stated complaint: poss ceullulitis, legs swollen and weepy Time Seen by Provider: 08/13/24 20:02 Source: patient and family Mode of arrival: Wheelchair History of Present Illness HPI Narrative: Patient 63-year-old female with a history of hyperlipidemia, diabetes, CHF, COPD who requires baseline 2 L nasal cannula, comes into the ED from home for evaluation of left lower extremity redness and weeping. She states that this started a few days ago, she states that she does remember bumping it on her wheelchair, she denies any numbness weakness tingling to her legs over her baseline due to her history of neuropathy. She denies any other symptoms at this time. Related Data Home Medications Medication Instructions Recorded Confirmed carvedilol 25 mg tablet 25 mg PO BID 09/20/18 09/13/22 potassium chloride 10 mEq 10 meq PO BID 09/20/18 09/13/22 tablet,extended release(part/cryst) insulin lispro 100 unit/mL 10 units SUBCUT 3-4XD PRN 10/10/18 09/13/22 subcutaneous solution Hyperglycemia gabapentin 300 mg capsule 300 mg PO TID 04/07/20 09/13/22 losartan 100 mg tablet 100 mg PO QAM 04/07/20 09/13/22 acetaminophen 325 mg capsule 650 mg PO Q4H PRN Pain, Moderate 05/16/20 09/13/22 amlodipine 10 mg tablet 10 mg PO QAM 05/16/20 09/13/22 ferrous sulfate 324 mg (65 mg 324 mg PO QAM 05/16/20 09/13/22 iron) tablet,delayed release furosemide 20 mg tablet 40 mg PO QAM PRN Edema 05/16/20 09/13/22 levetiracetam 750 mg tablet 750 mg PO BID 05/16/20 09/13/22 oxygen-air delivery systems 05/16/20 09/14/22 metformin 500 mg PO QAM 09/13/22 09/13/22 Previous Rx's Medication Instructions Recorded nystatin 100,000 unit/gram topical 1 applic topical TID PRN Rash #15 07/06/22 powder (Nystop) grams oxycodone 5 mg tablet 2.5 - 5 mg (0.5 - 1 x 5 mg) PO Q6H 07/06/22 PRN Pain (Scale Score 7-10) #30 tabs doxycycline hyclate 100 mg tablet 100 mg PO BID #20 tabs 08/06/23 prednisone 10 mg tablets in a dose See Rx Instructions PO .COMPLEX 08/06/23 pack #21 ea albuterol sulfate 90 mcg/actuation 2 puff inhalation Q6H PRN 07/14/24 aerosol inhaler shortness of breath or wheezing #8.5 grams doxycycline hyclate 100 mg capsule 100 mg PO BID #20 caps 07/14/24 doxycycline hyclate 100 mg tablet 100 mg PO BID 7 days #14 tabs 08/13/24 Allergies Allergy/AdvReac Type Severity Reaction Status Date / Time naproxen Allergy Mild MADE MY Verified 08/13/24 17:19 FACE NUMB Penicillins Allergy Mild Rash Verified 08/13/24 17:19 meperidine Allergy Unknown Verified 08/13/24 17:19 Sulfa (Sulfonamide Allergy Unknown Verified 08/13/24 17:19 Antibiotics) diphenhydramine AdvReac Shakiness Verified 08/13/24 17:19 [From Ya] Review of Systems Review of Systems Narrative: General: Denies fever, chills, weight loss HEENT: Denies headache, eye drainage, eye irritation, head trauma, sore throat, voice change Cardiovascular: Denies any chest pain, palpitations, tachycardia Respiratory: Denies any shortness of breath, cough, wheeze, stridor GI/: Denies any abdominal pain, nausea, vomiting, diarrhea, bright red blood per rectum, melanotic stools, urinary frequency, urinary retention, dysuria, hematuria MSK: Denies any joint pain, muscle pains, swelling Skin: Redness and weeping to the left lower leg, Denies any rashes, lesions, discoloration Neuro: Denies any headache, lightheadedness, dizziness, fainting, weakness Psych: Denies SI/HI Patient History Medical History History of cellulitis Bilateral lower extremity edema Personal history of osteomyelitis Chronic respiratory failure History of congestive heart failure Hypoxia Meningioma Diabetes Morbidly obese COPD (chronic obstructive pulmonary disease) Hypertension Surgical History History of craniotomy Status post appendectomy Status post cholecystectomy Family History Daughter No problems noted. Son No problems noted. Mother Diabetes mellitus Congestive heart failure Father Diabetes mellitus Social History household members: children Smoking Status: Never smoker alcohol intake: current Smoking Status: Never smoker alcohol intake frequency: holidays/special occasions only Exam Narrative Exam Narrative: General: Cooperative, well-developed, not in acute distress HEENT: Normocephalic, atraumatic, PERRLA, normal sclera, eyelids normal Neck: Active full range of motion, atraumatic Chest: Normal to inspection, negative crepitus, no overlying erythema ecchymosis Respiratory: Normal respiratory effort, not in acute respiratory distress, clear to auscultation bilaterally negative cough, wheeze, tachypnea, rhonchi, rales Cardiology: Regular rate rhythm negative gallop, murmur, rubs GI/: No tenderness to palpation, soft, non rigid, normal to inspection, exam deferred MSK: Full active range of motion in all 4 extremities, atraumatic, bilateral lower extremities neurovascularly intact, baseline +2 pitting edema, venous stasis noted bilaterally, however the lateral aspect of the left leg near the lateral malleolus does have some purulent discharge no crepitus, no streaking neurovascularly intact Skin: No rashes or lesions noted Neuro: Alert awake oriented x3, moves all 4 extremities spontaneously, cranial nerves intact, able to answer all questions appropriately follows commands appropriately Psych: Cooperative, negative suicidal or homicidal ideations Initial Vital Signs Initial Vital Signs: Vital Signs Temperature 98.2 F 08/13/24 17:19 Pulse Rate 75 08/13/24 17:19 Respiratory Rate 16 08/13/24 17:19 Blood Pressure 179/74 H 08/13/24 17:19 Pulse Oximetry 94 08/13/24 17:19 Oxygen Delivery Method Nasal Cannula 08/13/24 17:19 Oxygen Flow Rate 2.5 08/13/24 17:19 Course Orders Ordered: ED Orders 08/13/24 18:20 Complete Blood Count AUTO DIFF Stat Comprehensive Metabolic Panel Stat Lipase Stat Ondansetron HCl (Ondansetron 4 Mg/2 Ml Inj) 4 mg IV NOW PRN PRN Reason: Nausea And Vomiting Ondansetron HCl (Ondansetron 4 Mg Odt) 4 mg PO NOW PRN PRN Reason: Nausea And Vomiting Vital Signs Vital signs: Vital Signs - 8 hr 08/13/24 17:19 08/13/24 18:10 08/13/24 18:30 Temperature 98.2 F Pulse Rate 75 98 H 79 Respiratory Rate 16 16 Blood Pressure 179/74 H 208/83 H 188/79 H Pulse Oximetry 94 98 98 Oxygen Delivery Method Nasal Cannula Nasal Cannula Nasal Cannula Oxygen Flow Rate 2.5 2.5 2.5 08/13/24 19:00 Temperature Pulse Rate 72 Respiratory Rate 20 Blood Pressure 170/72 H Pulse Oximetry 97 Oxygen Delivery Method Nasal Cannula Oxygen Flow Rate 2.5 MDM - Extremity (Nontraumatic) Differential Diagnosis Differential diagnosis: Likely other (Cellulitis) Lab Data 08/13/24 18:20 08/13/24 18:20 Labs: Lab Results 08/13/24 Range/Units 18:20 WBC 8.7 (4.5-11.0) X10^3/uL RBC 4.38 (4.0-5.2) X10^6/uL Hgb 10.9 L (12.0-16.0) g/dL Hct 34.7 L (36-46) % MCV 79.4 L (80-100) fL MCH 24.9 L (26-34) PG MCHC 31.4 (30-36) % RDW 17.2 H (11.6-14.8) % Plt Count 376 (150-400) X10^3/uL Neut % (Auto) 71.8 (50-75) % Lymph % (Auto) 17.7 L (25-40) % Charlotte % (Auto) 6.2 (3-14) % Eos % (Auto) 3.4 (2-4) % Baso % (Auto) 0.9 (0-2) % Neut # (Auto) 6300 (4907-0465) /uL Lymph # (Auto) 1500 (5553-0008) /uL Charlotte # (Auto) 500 (0-900) /uL Eos # (Auto) 300 (0-450) /uL Baso # (Auto) 100 (0-100) /uL Sodium 140 (137-145) mmol/L Potassium 4.1 (3.4-5.1) mmol/L Chloride 102 (98-107) mmol/L Carbon Dioxide 31 (22-32) mmol/L BUN 18 H (7-17) mg/dL Creatinine 0.97 (0.52-1.04) mg/dL Estimated GFR > 60 (>60) mL/min BUN/Creatinine Ratio 18.6 (6-22) Glucose 153 H (70-99) mg/dL Calcium 9.4 (8.4-10.2) mg/dL Total Bilirubin 0.4 (0.2-1.3) mg/dL AST 27 (14-36) IU/L ALT 28 (<35) IU/L Alkaline Phosphatase 117 (38-126) U/L Total Protein 8.1 (6.3-8.2) g/dL Albumin 4.2 (3.5-5.0) g/dL Globulin 3.9 (1.7-4.1) g/dL Albumin/Globulin Ratio 1.1 (1.0-2.8) Lipase 80 (23-300) U/L Urine Dip Bedside Urine Glucose Negative Bedside Urine Bilirubin - Negative Bedside Urine Ketone - Negative Urine Specific Fortine 1.010 Bedside Urine Occult Blood - Negative Bedside Urine pH 6.0 Bedside Urine Protein - Negative Bedside Urine Urobilinogen - Negative Bedside Urine Nitrite - Negative Bedside Urine Leukocytes - Negative Esterase MDM Narrative Medical decision making narrative: 61-year-old female with a history of COPD requiring 2 L nasal cannula at baseline, hypertension hyperlipidemia diabetes chronic venous stasis presenting for left lower legs redness and discharge, states she noticed this 3 days ago, states that she did bump her leg on a wheelchair. On exam bilateral venous stasis noted to lower extremities, left lateral aspect of the leg does appear to be weeping with no streaking no crepitus, patient will be treated for cellulitis, lab work without any leukocytosis, Chem panel unremarkable, patient was given strict return precautions she verbalized understanding of this and agrees to being discharged home with outpatient follow up Discharge Plan Departure Patient Disposition: Home Clinical Impression: Cellulitis of left leg Instructions: DI for Cellulitis -- Adult Activity Restrictions/Additional Instructions: Please follow up with the primary care doctor Please read the discharge instructions sheet carefully and bring all papers to all doctor follow-up visits, as it may contain information that your doctor may want to see. Disease processes change and evolve, if your symptoms worsen or if you develop any new symptoms that are concerning to you please return for evaluation. Your evaluation today does not show any evidence of any life- threatening/serious illnesses requiring admission to the hospital or surgery. Please follow-up with your doctor for re-evaluation in approximately 1 day. Seek immediate medical attention for any worrisome symptoms. *If you do not have a primary care provider please contact the [facility] Resource line at [phone]. They will ask some questions about your medical history and help get you set up with a doctor in the community. Prescriptions: New doxycycline hyclate 100 mg tablet 100 mg PO BID 7 Days Qty: 14 0RF No Action carvedilol 25 mg Tablet 25 mg PO BID potassium chloride 10 mEq tablet,ER particles/crystals 10 meq PO BID nystatin [Nystop] 100,000 unit/gram Powder 1 applic topical TID PRN (Reason: Rash) Qty: 15 0RF oxycodone 5 mg Tablet 2.5 - 5 mg PO Q6H PRN (Reason: Pain (Scale Score 7-10)) Qty: 30 0RF metformin 500 mg tablet 500 mg PO QAM doxycycline hyclate 100 mg tablet 100 mg PO BID Qty: 20 0RF prednisone 10 mg tablets,dose pack See Rx Instructions .ROUTE .COMPLEX Qty: 21 0RF Rx Instructions: 6 tabs p.o. x1 day, then 5 tabs p.o. x1 day, then 4 tablets p.o. x1 day, then 3 tabs p.o. x1 day, then 2 tabs p.o. x1 day, then 1 tab p.o. x1 day insulin lispro 100 unit/mL solution 10 units subcut 3-4XD PRN (Reason: Hyperglycemia) gabapentin 300 mg capsule 300 mg PO TID losartan 100 mg tablet 100 mg PO QAM amlodipine 10 mg tablet 10 mg PO QAM levetiracetam 750 mg Tablet 750 mg PO BID ferrous sulfate 324 mg (65 mg iron) Tablet,Delayed Release (Dr/Ec) 324 mg PO QAM furosemide 20 mg Tablet 40 mg PO QAM PRN (Reason: Edema) acetaminophen 325 mg Capsule 650 mg PO Q4H PRN (Reason: Pain, Moderate) (DME) oxygen-air delivery systems Device MISCELLANEOUS Rx Instructions: 2L NC oxygen doxycycline hyclate 100 mg capsule 100 mg PO BID Qty: 20 0RF albuterol sulfate 90 mcg/actuation HFA aerosol inhaler 2 puff inhalation Q6H PRN (Reason: shortness of breath or wheezing) Qty: 8.5 0RF Referrals: Nato Lin MD [Primary Care Provider] - Stand Alone Forms: Patient Portal/API/Survey
[2024-08-13] MEDS: DOXYCYCLINE HYCLATE 100 MG TABLET PO (20:12)
== END 2024-08-13 20:21 | disposition home or self-care (01) ==
PROVIDERS: Emergency Provider Student in an Organized Health Care Education/Training Program; PCP Family Medicine
DX: L03.116 Cellulitis of left lower limb (principal); J44.9 Chronic obstructive pulmonary disease, unspecified
CPT/HCPCS: 36415; 80053; 81003; 83690; 85025; 99285

== ENCOUNTER → 2024-09-19 13:41 | Outpatient (CLI) | payer MEDICARE, MEDICAID, SELFPAY ==
[2022-09-14 04:35] VITALS: BMI 48.6
== END ==
PROVIDERS: PCP Family Medicine; Referring Provider Family Medicine; Visit Provider Surgery
DX: I87.2 Venous insufficiency (chronic) (peripheral) (principal); L97.812 Non-pressure chronic ulcer of other part of right lower leg with fat layer exposed; L97.821 Non-pressure chronic ulcer of other part of left lower leg limited to breakdown of skin; E11.622 Type 2 diabetes mellitus with other skin ulcer; L53.9 Erythematous condition, unspecified; R60.0 Localized edema; Z87.09 Personal history of other diseases of the respiratory system; I10 Essential (primary) hypertension; J45.909 Unspecified asthma, uncomplicated; E78.2 Mixed hyperlipidemia; N18.9 Chronic kidney disease, unspecified; Z86.79 Personal history of other diseases of the circulatory system
CPT/HCPCS: 11042; 11045; 87070; 87075; 87077; 87147; 87186; 87205; 99213

== ENCOUNTER → 2024-09-20 14:34 | Outpatient (CLI) | payer MEDICARE, MEDICAID, SELFPAY ==
[2022-09-14 04:35] VITALS: BMI 48.6
== END ==
PROVIDERS: PCP Family Medicine; Referring Provider Family Medicine; Visit Provider Surgery
DX: L97.812 Non-pressure chronic ulcer of other part of right lower leg with fat layer exposed (principal); L97.822 Non-pressure chronic ulcer of other part of left lower leg with fat layer exposed; I87.2 Venous insufficiency (chronic) (peripheral); L08.89 Other specified local infections of the skin and subcutaneous tissue; L53.9 Erythematous condition, unspecified; R60.0 Localized edema
CPT/HCPCS: 99214

== ENCOUNTER → 2024-10-04 14:09 | Outpatient (CLI) | payer MEDICARE, MEDICAID, SELFPAY ==
[2022-09-14 04:35] VITALS: BMI 48.6
== END ==
LOC: WC 14:18
PROVIDERS: PCP Family Medicine; Referring Provider Family Medicine; Visit Provider Physician Assistant
DX: I87.2 Venous insufficiency (chronic) (peripheral) (principal); L97.812 Non-pressure chronic ulcer of other part of right lower leg with fat layer exposed; L97.821 Non-pressure chronic ulcer of other part of left lower leg limited to breakdown of skin; I89.0 Lymphedema, not elsewhere classified; E66.01 Morbid (severe) obesity due to excess calories; Z68.43 Body mass index [BMI] 50.0-59.9, adult
CPT/HCPCS: 11042; 11045; 99214

== ENCOUNTER → 2024-10-09 16:08 | Outpatient (CLI) | payer MEDICARE, MEDICAID, SELFPAY ==
[2022-09-14 04:35] VITALS: BMI 48.6
== END ==
LOC: WC 16:11
PROVIDERS: PCP Family Medicine; Referring Provider Family Medicine; Visit Provider Surgery
DX: L97.812 Non-pressure chronic ulcer of other part of right lower leg with fat layer exposed (principal); L97.822 Non-pressure chronic ulcer of other part of left lower leg with fat layer exposed; L08.89 Other specified local infections of the skin and subcutaneous tissue; I87.2 Venous insufficiency (chronic) (peripheral); L53.9 Erythematous condition, unspecified; R60.0 Localized edema; Z99.81 Dependence on supplemental oxygen; Z88.0 Allergy status to penicillin
CPT/HCPCS: 99213

== ENCOUNTER → 2024-10-11 14:06 | Outpatient (CLI) | payer MEDICARE, MEDICAID, SELFPAY ==
[2022-09-14 04:35] VITALS: BMI 48.6
== END ==
PROVIDERS: PCP Family Medicine; Referring Provider Family Medicine; Visit Provider Physician Assistant
DX: I87.2 Venous insufficiency (chronic) (peripheral) (principal); L97.812 Non-pressure chronic ulcer of other part of right lower leg with fat layer exposed; L97.821 Non-pressure chronic ulcer of other part of left lower leg limited to breakdown of skin; I89.0 Lymphedema, not elsewhere classified; Z99.81 Dependence on supplemental oxygen; L08.89 Other specified local infections of the skin and subcutaneous tissue; E66.01 Morbid (severe) obesity due to excess calories; Z68.43 Body mass index [BMI] 50.0-59.9, adult; E11.622 Type 2 diabetes mellitus with other skin ulcer; E11.22 Type 2 diabetes mellitus with diabetic chronic kidney disease; I13.0 Hypertensive heart and chronic kidney disease with heart failure and stage 1 through stage 4 chronic kidney disease, or unspecified chronic kidney disease; N18.9 Chronic kidney disease, unspecified; J44.9 Chronic obstructive pulmonary disease, unspecified; R20.8 Other disturbances of skin sensation
CPT/HCPCS: 11042; 11045; 99214

== ENCOUNTER → 2024-10-14 16:30 | Outpatient (CLI) | payer MEDICARE, MEDICAID, SELFPAY ==
[2022-09-14 04:35] VITALS: BMI 48.6
== END ==
LOC: WC 16:32
PROVIDERS: PCP Family Medicine; Referring Provider Family Medicine; Visit Provider Physician Assistant
DX: I87.2 Venous insufficiency (chronic) (peripheral) (principal); L97.812 Non-pressure chronic ulcer of other part of right lower leg with fat layer exposed; L97.821 Non-pressure chronic ulcer of other part of left lower leg limited to breakdown of skin; L53.9 Erythematous condition, unspecified; R60.0 Localized edema
CPT/HCPCS: 99212

== ENCOUNTER → 2024-10-16 13:33 | Outpatient (CLI) | payer MEDICARE, MEDICAID, SELFPAY ==
[2022-09-14 04:35] VITALS: BMI 48.6
== END ==
PROVIDERS: PCP Family Medicine; Referring Provider Family Medicine; Visit Provider Surgery
DX: I87.2 Venous insufficiency (chronic) (peripheral) (principal); L97.812 Non-pressure chronic ulcer of other part of right lower leg with fat layer exposed; L97.821 Non-pressure chronic ulcer of other part of left lower leg limited to breakdown of skin
CPT/HCPCS: 99214

== ENCOUNTER → 2024-10-18 13:45 | Outpatient (CLI) | payer MEDICARE, MEDICAID, SELFPAY ==
[2022-09-14 04:35] VITALS: BMI 48.6
== END ==
LOC: WC 13:49
PROVIDERS: PCP Family Medicine; Referring Provider Family Medicine; Visit Provider Surgery
DX: L97.812 Non-pressure chronic ulcer of other part of right lower leg with fat layer exposed (principal); L97.821 Non-pressure chronic ulcer of other part of left lower leg limited to breakdown of skin; I87.2 Venous insufficiency (chronic) (peripheral); L53.9 Erythematous condition, unspecified; I11.0 Hypertensive heart disease with heart failure; I50.22 Chronic systolic (congestive) heart failure; E11.622 Type 2 diabetes mellitus with other skin ulcer; J44.9 Chronic obstructive pulmonary disease, unspecified; Z99.81 Dependence on supplemental oxygen
CPT/HCPCS: 99213; 99214

== ENCOUNTER 2024-10-22 15:57 | Emergency (ER) | payer MEDICARE, MEDICAID, SELFPAY ==
[2022-09-14 04:35] VITALS: BMI 48.6
[2024-10-22] VITALS (15 sets, daily range): BP systolic 153–209; BP diastolic 65–84; PULSE 66–85; RESP 16–24; TEMP 36.6; O2SAT 92–98; BMI 55.0
--- NOTE | 2024-10-22 16:10 | DI.RAD.S_ITS ---
PROCEDURE: XR CHEST 1V INDICATIONS: Shortness of breath TECHNIQUE: One view of the chest was acquired. COMPARISON: [facility], CR, XR CHEST 1V, 07/14/2024, 16:46. FINDINGS: Surgical changes and devices: Midthoracic corpectomy with posterior lateral multilevel fixation rods and pedicle screws. Lungs and pleura: Pulmonary edema. No pleural effusions or pneumothorax. Mediastinum: Mediastinal contours appear normal. Heart size is enlarged. Bones and chest wall: No suspicious bony lesions. Overlying soft tissues appear unremarkable. IMPRESSION: Congestive heart failure exacerbation Dictated by: Luke Galvez M.D. on 10/22/2024 at 16:37 Approved by: Luke Galvez M.D. on 10/22/2024 at 16:38
[2024-10-22 16:21] LABS: INR 1.0 (0.9-1.3); Prothrombin Time 11.5 SECONDS (9.4-12.5)
[2024-10-22 16:23] LABS: Add Manual Diff / Slide Review NO; Hematocrit 35.1 % (36-46); Hemoglobin 10.8 g/dL (12.0-16.0); Lymphocytes Absolute Auto 1400 /uL (1100-4500); Mean Corpuscular HGB Conc 30.8 % (30-36); Mean Corpuscular Hemoglobin 24.0 PG (26-34); Mean Corpuscular Volume 77.7 fL (80-100); Platelet Count 303 X10^3/uL (150-400)
[2024-10-22 16:27] LABS: Lactate (Lactic Acid) 2.1 mmol/L (0.7-2.1)
[2024-10-22 16:28] LABS: Alanine Aminotransferase 24 IU/L (<35); Albumin 4.2 g/dL (3.5-5.0); Albumin Globulin Ratio 1.0 (1.0-2.8); Alkaline Phosphatase 99 U/L (38-126); Blood Urea Nitrogen 20 mg/dL (7-17); Calcium 9.4 mg/dL (8.4-10.2); Carbon Dioxide 37 mmol/L (22-32); Chloride 99 mmol/L (98-107); Estimated Glomerular Filt Rate > 60 mL/min (>60); Globulin 4.2 g/dL (1.7-4.1); Glucose 130 mg/dL (70-99); HEMOLYSIS < 15 (0-50); Potassium 4.8 mmol/L (3.4-5.1); Sodium 142 mmol/L (137-145); Total Protein 8.4 g/dL (6.3-8.2)
--- NOTE | 2024-10-22 16:32 | EKG_ITS ---
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
[2024-10-22 16:40] LABS: NT-proBNP (BNP-Adult 18+) 151 pg/mL (<125); Troponin I < 0.012 ng/mL (0.01-0.034)
[2024-10-22] MEDS: ALBUTEROL 2.5 MG/3 ML NEB (ADULT) INH (16:53)
[2024-10-22 17:16] LABS: Influenza A - CEPHEID Flu A NEGATIVE (NEGATIVE); Influenza B - CEPHEID Flu B NEGATIVE (NEGATIVE)
[2024-10-22 17:28] LABS: COVID-19 CEPHEID 4-PLEX PCR Negative (Negative)
[2024-10-22 17:51] LABS: Reflexed Lactate in 2 Hours Y
[2024-10-22 18:46] LABS: Lactate 2HR (Lactic Acid Rflx) 1.3 mmol/L (0.7-2.1)
--- NOTE | 2024-10-22 18:48 | ED.SOB ---
HPI - SOB/Dyspnea General Chief Complaint: Shortness of Breath/Dyspnea Stated Complaint: SOB Time Seen by Provider: 10/22/24 16:08 Mode of arrival: EMS History of Present Illness HPI Narrative: 63-year-old female with history of COPD, using 2 L oxygen at home flow rate, complains of 2 days duration increasing shortness of breath, with new cough productive of clear/green sputum, no bloody sputum. She completed a course of oral doxycycline for lower extremity swelling infection, followed by wound care clinic, with previous weeping wounds per family that are significantly improved. Denies chest pain. MD Complaint: chest pain Related Data Home Medications ?Medication ?Instructions ?Recorded ?Confirmed carvedilol 25 mg tablet 25 mg PO BID 09/20/18 09/13/22 potassium chloride 10 mEq 10 meq PO BID 09/20/18 09/13/22 tablet,extended release(part/cryst) insulin lispro 100 unit/mL 10 units SUBCUT 3-4XD PRN 10/10/18 09/13/22 subcutaneous solution Hyperglycemia gabapentin 300 mg capsule 300 mg PO TID 04/07/20 09/13/22 losartan 100 mg tablet 100 mg PO QAM 04/07/20 09/13/22 acetaminophen 325 mg capsule 650 mg PO Q4H PRN Pain, Moderate 05/16/20 09/13/22 amlodipine 10 mg tablet 10 mg PO QAM 05/16/20 09/13/22 ferrous sulfate 324 mg (65 mg 324 mg PO QAM 05/16/20 09/13/22 iron) tablet,delayed release furosemide 20 mg tablet 40 mg PO QAM PRN Edema 05/16/20 09/13/22 levetiracetam 750 mg tablet 750 mg PO BID 05/16/20 09/13/22 oxygen-air delivery systems 05/16/20 09/14/22 metformin 500 mg PO QAM 09/13/22 09/13/22 Previous Rx's ?Medication ?Instructions ?Recorded nystatin 100,000 unit/gram topical 1 applic topical TID PRN Rash #15 07/06/22 powder (Nystop) grams oxycodone 5 mg tablet 2.5 - 5 mg (0.5 - 1 x 5 mg) PO Q6H 07/06/22 PRN Pain (Scale Score 7-10) #30 tabs doxycycline hyclate 100 mg tablet 100 mg PO BID #20 tabs 08/06/23 prednisone 10 mg tablets in a dose See Rx Instructions PO .COMPLEX 08/06/23 pack #21 ea albuterol sulfate 90 mcg/actuation 2 puff inhalation Q6H PRN 07/14/24 aerosol inhaler shortness of breath or wheezing #8.5 grams doxycycline hyclate 100 mg capsule 100 mg PO BID #20 caps 07/14/24 azithromycin 250 mg tablet 250 mg PO DAILY 4 days #4 tabs 10/22/24 prednisone 20 mg tablet 40 mg (2 x 20 mg) PO DAILY 5 days 10/22/24 #10 tabs Allergies Allergy/AdvReac Type Severity Reaction Status Date / Time naproxen Allergy Mild MADE MY Verified 10/22/24 16:12 FACE NUMB Penicillins Allergy Mild Rash Verified 10/22/24 16:12 meperidine Allergy Unknown Verified 10/22/24 16:12 Sulfa (Sulfonamide Allergy Unknown Verified 10/22/24 16:12 Antibiotics) diphenhydramine (From AdvReac Shakiness Verified 10/22/24 16:12 Benadryl) Patient History Medical History History of cellulitis Bilateral lower extremity edema Personal history of osteomyelitis Chronic respiratory failure History of congestive heart failure Hypoxia Meningioma Diabetes Morbidly obese COPD (chronic obstructive pulmonary disease) Hypertension Surgical History History of craniotomy Status post appendectomy Status post cholecystectomy Family History Daughter No problems noted. Son No problems noted. Mother Diabetes mellitus Congestive heart failure Father Diabetes mellitus Social History household members: children Smoking Status: Unknown if ever smoked alcohol intake: current Smoking Status: Unknown if ever smoked alcohol intake frequency: holidays/special occasions only Exam Narrative Exam Narrative: GENERAL: Well-developed patient, in mild distress. HEAD: Atraumatic. Normocephalic. EYES: Pupils equal round and reactive. Extraocular motions intact. No scleral icterus. No injection or drainage. ENT: Nose without bleeding, purulent drainage. Throat without erythema, tonsillar hypertrophy or exudate. Airway patent. Wearing nasal cannula 2 liters/minute flow rate. NECK: Trachea midline. Non tender CARDIOVASCULAR: Regular rate and rhythm without murmurs, gallops, or rubs. RESPIRATORY: Clear to auscultation. Breath sounds equal bilaterally. No wheezes, rales, or rhonchi. GASTROINTESTINAL: Abdomen soft, non-tender, nondistended. EXTREMITIES: No edema or joint tenderness. BACK: Nontender without deformity or crepitance. No flank tenderness. NEURO: AOx3. Motor functions grossly nonfocal. SKIN: No rash or erythema of visible areas Initial Vital Signs Initial Vital Signs: Vital Signs Temperature 97.9 F 10/22/24 16:02 Pulse Rate 85 10/22/24 16:02 Respiratory Rate 16 10/22/24 16:02 Blood Pressure 209/84 H 10/22/24 16:02 Pulse Oximetry 97 10/22/24 16:02 Oxygen Delivery Method Nasal Cannula 10/22/24 16:02 Oxygen Flow Rate 4 10/22/24 16:02 Course Orders Ordered: Discontinued Medications Albuterol (Albuterol 2.5 Mg/3 Ml Neb (Adult)) 2.5 mg INH NOW ONE Stop: 10/22/24 16:25 Last Admin: 10/22/24 16:53 Dose: 2.5 mg Documented By: CECY Albuterol (Albuterol 2.5 Mg/3 Ml Neb (Adult)) 2.5 mg INH NOW ONE Stop: 10/22/24 18:38 Last Admin: 10/22/24 18:53 Dose: Not Given Documented By: CECY Albuterol (Albuterol Hfa Prepack) 1 box MISC DIRECTED ONE Stop: 10/22/24 20:34 Last Admin: 10/22/24 20:40 Dose: 1 box Documented By: SHERYL Albuterol/Ipratropium (Albuterol/Ipratropium 3 Ml Ampul) 3 ml INH NOW ONE Stop: 10/22/24 19:39 Last Admin: 10/22/24 19:43 Dose: 3 ml Documented By: SHERYL Azithromycin (Azithromycin 250 Mg Tablet) 500 mg PO NOW ONE Stop: 10/22/24 19:01 Last Admin: 10/22/24 19:04 Dose: 500 mg Documented By: CECY Methylprednisolone (Methylprednisolone 125 Mg/2 Ml Vial) 125 mg IV NOW ONE Stop: 10/22/24 18:38 Last Admin: 10/22/24 18:57 Dose: 125 mg Documented By: CECY Vital Signs Vital signs: Vital Signs - 8 hr 10/22/24 19:43 10/22/24 20:00 10/22/24 20:40 Pulse Rate 71 68 Respiratory Rate 22 Blood Pressure Pulse Oximetry 94 93 Oxygen Delivery Method Room Air Room Air Oxygen Flow Rate 0 Fraction of Inspired Oxygen 21 10/22/24 20:55 Pulse Rate 76 Respiratory Rate 24 Blood Pressure 195/82 H Pulse Oximetry 95 Oxygen Delivery Method Nasal Cannula Oxygen Flow Rate 2 Fraction of Inspired Oxygen MDM - SOB/Dyspnea Lab Data Attestation: I reviewed the patient's lab results. Lab results narrative: White blood cell count 8300, hemoglobin 10.8, platelets adequate. Glucose 130. BUN 20 with creatinine 0.85. Serum CO2 37 increased. Electrolytes unremarkable. Liver functions normal. Troponin negative/unmeasurable. BNP 151 not elevated. COVID flu RSV negative. 10/22/24 15:55 10/22/24 15:55 Labs: Lab Results 10/22/24 10/22/24 10/22/24 Range/Units 15:55 16:10 18:20 WBC 8.3 (4.5-11.0) X10^3/uL RBC 4.51 (4.0-5.2) X10^6/uL Hgb 10.8 L (12.0-16.0) g/dL Hct 35.1 L (36-46) % MCV 77.7 L (80-100) fL MCH 24.0 L (26-34) PG MCHC 30.8 (30-36) % RDW 17.4 H (11.6-14.8) % Plt Count 303 (150-400) X10^3/uL Neut % (Auto) 73.6 (50-75) % Lymph % (Auto) 16.9 L (25-40) % [place] % (Auto) 4.8 (3-14) % Eos % (Auto) 3.8 (2-4) % Baso % (Auto) 0.9 (0-2) % Neut # (Auto) 6100 (8767-0137) /uL Lymph # (Auto) 1400 (2807-7329) /uL [place] # (Auto) 400 (0-900) /uL Eos # (Auto) 300 (0-450) /uL Baso # (Auto) 100 (0-100) /uL PT 11.5 (9.4-12.5) SECONDS INR 1.0 (0.9-1.3) Sodium 142 (137-145) mmol/L Potassium 4.8 (3.4-5.1) mmol/L Chloride 99 (98-107) mmol/L Carbon Dioxide 37 H (22-32) mmol/L BUN 20 H (7-17) mg/dL Creatinine 0.85 (0.52-1.04) mg/dL Estimated GFR > 60 (>60) mL/min BUN/Creatinine Ratio 23.5 H (6-22) Glucose 130 H (70-99) mg/dL Lactate 2.1 1.3 (0.7-2.1) mmol/L Calcium 9.4 (8.4-10.2) mg/dL Total Bilirubin 0.3 (0.2-1.3) mg/dL AST 23 (14-36) IU/L ALT 24 (<35) IU/L Alkaline Phosphatase 99 (38-126) U/L Troponin I < 0.012 (0.01-0.034) ng/mL NT-Pro-B Natriuret Pep 151 H (<125) pg/mL Total Protein 8.4 H (6.3-8.2) g/dL Albumin 4.2 (3.5-5.0) g/dL Globulin 4.2 H (1.7-4.1) g/dL Albumin/Globulin Ratio 1.0 (1.0-2.8) SARS-CoV-2 (PCR) Negative (Negative) Influenza A (RT-PCR) Flu a negative (NEGATIVE) Influenza B (RT-PCR) Flu b negative (NEGATIVE) RSV (PCR) Negative (Negative) Imaging Data Chest x-ray: Radiologist's Impression: [address] [address] XRay Report Signed Patient: Rocío Enriquez MR#: [id number] : 1960 Acct:[id number] Age/Sex: 63 / F Date of Service: 10/22/24 Loc: ED Accession Number: [id number] Procedure: XR chest 1V Ordering Provider: Mank,Erica C D.O. PROCEDURE: XR CHEST 1V INDICATIONS: Shortness of breath TECHNIQUE: One view of the chest was acquired. COMPARISON: [facility], CR, XR CHEST 1V, 07/14/2024, 16:46. FINDINGS: Surgical changes and devices: Midthoracic corpectomy with posterior lateral multilevel fixation rods and pedicle screws. Lungs and pleura: Pulmonary edema. No pleural effusions or pneumothorax. Mediastinum: Mediastinal contours appear normal. Heart size is enlarged. Bones and chest wall: No suspicious bony lesions. Overlying soft tissues appear unremarkable. IMPRESSION: Congestive heart failure exacerbation Dictated by: Luke Galvez M.D. on 10/22/2024 at 16:37 Approved by: Luke Galvez M.D. on 10/22/2024 at 16:38 ECG Data Attestation: I personally reviewed and interpreted this ECG as follows: Interpretation: 1632, normal sinus rhythm with a rate of 72, no obvious ST segment elevation or depression changes. Some movement artifact. OH 160, QRS 84, QTC 442. MDM Narrative Medical decision making narrative: 63-year-old female with history of COPD on 2 L oxygen baseline, has recent productive cough, given breathing treatment by EMS during transport, felt some improvement, also given breathing treatment here, has been weaned to her usual 2 L baseline. Chest x-ray suspicious for congestive heart failure however BNP not elevated 151 only. Recent course of oral doxycycline for lower extremity infection, reportedly significantly improved per patient family, followed in wound care. Lab data: White blood cell count 8300, hemoglobin 10.8, platelets adequate. Glucose 130. BUN 20 with creatinine 0.85. Serum CO2 37 increased. Electrolytes unremarkable. Liver functions normal. Troponin negative/unmeasurable. BNP 151 not elevated. COVID flu RSV negative. Given albuterol breathing treatment here as well, further improved. IV Solu-Medrol added. Will give oral azithromycin dose, send further prescription antibiotic to her pharmacy. Prescription for prednisone pulse sent to her pharmacy as well. Discharged home. Return precautions discussed. Discharge Plan Departure Patient Disposition: Home Clinical Impression: COPD exacerbation Instructions: DI for Chronic Obstructive Pulmonary Disease Activity Restrictions/Additional Instructions: History of COPD, on home oxygen 2 liters/minute, recent shortness of breath and new productive cough. Also history of lower extremity wound infection, having completed recent oral course of antibiotic doxycycline with significant improvement. Attempt made to see the wound, nursing apparently took off the dressing is in put on a new dressing, I did not see the wound but reportedly you/family members thought there significant improvement. Chest x-ray without obvious pneumonia changes. Chest x-ray suspicious for congestive heart failure, however blood testing not consistent with congestive heart failure. Oral azithromycin dose given in the emergency department, further daily azithromycin course sent to your pharmacy, for COPD exacerbation coverage. Follow up with your regular doctor and with wound clinic. Return to this/nearest emergency department for any change worsening symptoms or any concerns prior. Prescriptions: New prednisone 20 mg tablet 40 mg PO DAILY 5 Days Qty: 10 0RF azithromycin 250 mg tablet 250 mg PO DAILY 4 Days Qty: 4 0RF Rx Instructions: start on day 2 of therapy No Action carvedilol 25 mg Tablet 25 mg PO BID potassium chloride 10 mEq tablet,ER particles/crystals 10 meq PO BID nystatin [Nystop] 100,000 unit/gram Powder 1 applic topical TID PRN (Reason: Rash) Qty: 15 0RF oxycodone 5 mg Tablet 2.5 - 5 mg PO Q6H PRN (Reason: Pain (Scale Score 7-10)) Qty: 30 0RF metformin 500 mg tablet 500 mg PO QAM doxycycline hyclate 100 mg tablet 100 mg PO BID Qty: 20 0RF prednisone 10 mg tablets,dose pack See Rx Instructions .ROUTE .COMPLEX Qty: 21 0RF Rx Instructions: 6 tabs p.o. x1 day, then 5 tabs p.o. x1 day, then 4 tablets p.o. x1 day, then 3 tabs p.o. x1 day, then 2 tabs p.o. x1 day, then 1 tab p.o. x1 day insulin lispro 100 unit/mL solution 10 units subcut 3-4XD PRN (Reason: Hyperglycemia) gabapentin 300 mg capsule 300 mg PO TID losartan 100 mg tablet 100 mg PO QAM amlodipine 10 mg tablet 10 mg PO QAM levetiracetam 750 mg Tablet 750 mg PO BID ferrous sulfate 324 mg (65 mg iron) Tablet,Delayed Release (Dr/Ec) 324 mg PO QAM furosemide 20 mg Tablet 40 mg PO QAM PRN (Reason: Edema) acetaminophen 325 mg Capsule 650 mg PO Q4H PRN (Reason: Pain, Moderate) (DME) oxygen-air delivery systems Device MISCELLANEOUS Rx Instructions: 2L NC oxygen doxycycline hyclate 100 mg capsule 100 mg PO BID Qty: 20 0RF albuterol sulfate 90 mcg/actuation HFA aerosol inhaler 2 puff inhalation Q6H PRN (Reason: shortness of breath or wheezing) Qty: 8.5 0RF Referrals: Nato Lin MD [Primary Care Provider, Medical] Stand Alone Forms: Patient Portal/API
[2024-10-22] MEDS: AZITHROMYCIN 250 MG TABLET 500 MG PO (19:04)
--- NOTE | 2024-10-22 19:21 | PC.NURSE ---
Bilateral lower extremity dressing changed w/ abd pad and wrap. No drainage noted. Redness to lower extremity noted. Pt states her next wound care appt is tomorrow.
[2024-10-22] MEDS: ALBUTEROL/IPRATROPIUM 3 ML AMPUL INH (19:43)
[2024-10-22] MEDS: ALBUTEROL HFA PREPACK 1 BOX MISC (20:40)
== END 2024-10-22 20:55 | disposition home or self-care (01) ==
PROVIDERS: Emergency Medicine; Emergency Provider Emergency Medicine; PCP Family Medicine
DX: J44.1 Chronic obstructive pulmonary disease with (acute) exacerbation (principal); R05.9 Cough, unspecified; I10 Essential (primary) hypertension; Z99.81 Dependence on supplemental oxygen
CPT/HCPCS: 0241U; 36415; 71045; 80053; 83605; 83880; 84484; 85025; 85610; 93005; 93010; 94640; 96374; 99284; 99285; J2919; J7613